=== PATIENT | female | born 1960 | race Caucasian/White ===

== ENCOUNTER 2023-05-07 14:46 | Outpatient (OUT) | payer MEDICARE, SELFPAY ==
[2023-05-07 16:11] LABS: Calcium 9.5 mg/dL (8.5-10.1)
== END 2023-05-07 14:47 | disposition home or self-care (01) ==
LOC: LAB 14:47
PROVIDERS: Orthopaedic Surgery; PCP Family Medicine
DX: M81.0 Age-related osteoporosis without current pathological fracture (principal); E55.9 Vitamin D deficiency, unspecified
CPT/HCPCS: 36415; 82306; 82310

== ENCOUNTER 2023-09-30 10:15 | Outpatient (OUT) | payer MEDICARE, OTHER, SELFPAY ==
[2023-09-30 10:37] LABS: Basophils Percent Auto 0.5 % (0.2-2.0); Eosinophils Absolute Auto 0.2 10^3/uL (0.0-0.7); Eosinophils Percent Auto 3.8 % (0.9-7.0); Hematocrit 40.8 % (36.0-48.0); Hemoglobin 13.4 g/dL (12.0-16.0); Immature Granulocytes Abs Auto 0.04 10^3/uL (0.00-0.03); Immature Granulocytes Pct Auto 0.6 % (0.0-0.5); Lymphocytes Absolute Auto 2.1 10^3/uL (1.2-3.8); Lymphocytes Percent Auto 34.2 % (20.5-60.0); Mean Corpuscular HGB Conc 32.8 g/dL (29.9-35.2); Mean Corpuscular Hemoglobin 31.6 pg (26.7-34.0); Mean Corpuscular Volume 96.2 fL (81.0-99.0); Mean Platelet Volume 9.8 fL (9.5-13.5); Monocytes Absolute Auto 0.5 10^3/uL (0.3-0.8); Neutrophils Absolute Auto 3.3 10^3/uL (1.4-6.5); Neutrophils Percent Auto 52.9 % (43.0-75.0); Platelet Count 173 10^3/uL (150-450); Red Blood Count 4.24 10^6/uL (4.20-5.40); Red Cell Distribution Width 12.9 % (11.0-15.0); White Blood Count 6.3 10^3/uL (4.0-11.0)
[2023-09-30 12:28] LABS: Estimated Average Glucose 128 mg/dL; Glycohemoglobin A1C 6.1 % (4.5-6.2)
[2023-09-30 13:01] LABS: Alanine Aminotransferase 30 U/L (14-59); Albumin Globulin Ratio 1.1; Albumin Level 3.8 g/dL (3.4-5.0); Alkaline Phosphatase 56 U/L (46-116); Anion Gap 14.2; Aspartate Amino Transferase 16 U/L (15-37); Bilirubin Total 0.3 mg/dL (0.2-1.0); Calcium 8.7 mg/dL (8.5-10.1); Chloride 100 mmol/L (98-107); Chol HDL Ratio 8.1; Cholesterol 298 mg/dL (<=200); Estimated GFR (African America >60 (>=60); Estimated GFR (Non-African Ame >60 (>=60); Free T3 2.73 pg/mL (2.18-3.98); Globulin 3.4 g/dL; Glucose 139 mg/dL (74-106); HDL Cholesterol 37 mg/dL (40-60); Potassium 4.2 mmol/L (3.5-5.1); Sodium 140 mmol/L (136-145); Thyroid Stimulating Hormone 3.277 uIU/mL (0.358-3.740); Total Protein 7.2 g/dL (6.4-8.2); Triglycerides 557 mg/dL (<=150); VLDL CHOLESTEROL 111.4 mg/dL
[2023-09-30 13:06] LABS: LDL Cholesterol Direct 127 mg/dL
== END 2023-09-30 10:16 | disposition home or self-care (01) ==
LOC: LAB 10:19
PROVIDERS: PCP Family Medicine; Visit Provider Family Medicine
DX: E78.5 Hyperlipidemia, unspecified (principal); E11.9 Type 2 diabetes mellitus without complications; I10 Essential (primary) hypertension; Z12.12 Encounter for screening for malignant neoplasm of rectum; D64.9 Anemia, unspecified; E55.9 Vitamin D deficiency, unspecified
CPT/HCPCS: 36415; 80053; 80061; 82306; 83036; 83540; 83721; 84436; 84443; 84481; 85025

== ENCOUNTER 2023-10-13 11:35 | Outpatient (OUT) | payer MEDICARE, OTHER, SELFPAY ==
[2023-10-13 12:28] LABS: Calcium 9.4 mg/dL (8.5-10.1)
== END 2023-10-13 11:36 | disposition home or self-care (01) ==
LOC: LAB 11:35
PROVIDERS: PCP Family Medicine; Visit Provider Orthopaedic Surgery
DX: M81.0 Age-related osteoporosis without current pathological fracture (principal); E55.9 Vitamin D deficiency, unspecified
CPT/HCPCS: 36415; 82306; 82310

== ENCOUNTER 2024-02-04 16:50 | Outpatient (OUT) | payer MEDICARE, OTHER, SELFPAY ==
--- NOTE | 2024-02-04 16:53 | XR_ITS ---
[address] [address] Patient Name: DACIA BENJAMIN MRN: [id number] date: 1960 Sex: F Assigned Patient Location: [facility] Current Patient Location: Accession/Order Number: [id number] Exam Date: 02/04/2024 17:05 Report Date: 02/05/2024 07:14 At the request of: ENDY BOLIVAR Procedure: XR knee LT 4V PROCEDURE: XR knee LT 4V COMPARISON: None. HISTORY: left knee pain FINDINGS: BONES:No acute fracture or dislocation. Moderate tricompartmental osteoarthropathy with marginal osteophyte formation. Moderate narrowing of the medial joint space. Chondrocalcinosis SOFT TISSUES:Negative. No visible soft tissue swelling. EFFUSION:None visible. OTHER: Negative. XR/XR knee LT 4V IMPRESSION: Moderate osteoarthritis and chondrocalcinosis Electronically authenticated by: ROCÍO HOOKS Date: 02/05/2024 07:14
== END 2024-02-04 16:51 | disposition home or self-care (01) ==
LOC: RAD 16:50
PROVIDERS: PCP Family Medicine; Visit Provider Orthopaedic Surgery
DX: M25.562 Pain in left knee (principal)
CPT/HCPCS: 73564

== ENCOUNTER 2024-03-31 13:09 | Outpatient (OUT) | payer MEDICARE, OTHER, SELFPAY ==
--- NOTE | 2024-03-31 13:12 | MM_ITS ---
Patient Name: DACIA BENJAMIN MR#: [id number] : 1960 Exam Date: 03/31/2024 Ordering Doctor: Non-Staff Physician RADIOLOGY REPORT PROCEDURE: MM TOMOSYNTHESIS SCREENING BI COMPARISON: MG MAMM SCREEN 3D PAU CAD, 03/11/2023. MG MAMM DX 3D RT CAD, 10/03/2021. INDICATIONS: Screening Calculator Name NCI Breast Cancer Risk Assessment Tool 5 Year Breast Cancer Risk 2.40% Lifetime Breast Cancer Risk 8.90% Personal Breast Cancer No Personal Ovarian Cancer No Treatments None Family Cancers Niece with breast cancer at age 50; Mother with ovarian cancer at age 93; Sister with uterine cancer at age 63. LOCATION: [facility] BREAST COMPOSITION: There are scattered areas of fibroglandular density. FINDINGS: DIAGNOSTIC CATEGORY 2--BENIGN FINDING. NO CHANGE FROM COMPARISON. Scattered benign-appearing calcifications are present. Scattered benign-appearing lymph nodes are present. RIGHT BREAST: No significant suspicious finding. Linear scar markers LEFT BREAST: No significant suspicious finding. RECOMMENDATIONS: ROUTINE MAMMOGRAM AND CLINICAL EVALUATION IN 12 MONTHS. PLEASE NOTE: A NORMAL MAMMOGRAM DOES NOT EXCLUDE THE POSSIBILITY OF BREAST CANCER. A CLINICALLY SUSPICIOUS PALPABLE LUMP SHOULD BE BIOPSIED. Dictated by: Dexter Reyes MD on 03/31/2024 at 15:38 Approved by: Dexter Reyes MD on 03/31/2024 at 15:40
== END 2024-03-31 13:10 | disposition home or self-care (01) ==
LOC: MAMMO 13:10
PROVIDERS: PCP Family Medicine
DX: Z12.31 Encounter for screening mammogram for malignant neoplasm of breast (principal); Z80.3 Family history of malignant neoplasm of breast; Z80.41 Family history of malignant neoplasm of ovary
CPT/HCPCS: 77063; 77067

== ENCOUNTER 2024-04-30 13:32 | Outpatient (OUT) | payer MEDICARE, OTHER, SELFPAY ==
[2024-04-30 14:51] LABS: Calcium 9.6 mg/dL (8.5-10.1)
== END 2024-04-30 13:33 | disposition home or self-care (01) ==
LOC: LAB 13:32
PROVIDERS: PCP Family Medicine
DX: M81.0 Age-related osteoporosis without current pathological fracture (principal); E55.9 Vitamin D deficiency, unspecified
CPT/HCPCS: 36415; 82306; 82310

== ENCOUNTER 2024-10-23 10:20 | Outpatient (OUT) | payer MEDICARE, OTHER, SELFPAY ==
--- OUTSIDE RECORDS SUMMARY | 2024-10-23 10:23 | XMS_ITS | CCD ---
Author Organization [facility] Care Team Providers Care Social Work Msw Name Role Phone Davie Hernandes Primary Care Provider Unavailabl e ENDY CRUZ Referring Unavailable DAVIE HERNANDES Primary Care Unavailable Davie Hernandes Primary Care Provider [phone] Niki Pearson Primary Care Physician MD Marito Villalobos Attending Provider [phone] MD Marito Villalobos Attending Provider Davie Hernandes Primary Care Provider Niki Pearson MD Primary Care Provider [phone] Niki Pearson MD Primary Care Provider [phone] ROCÍO REYES V Consulting Unavailable MISC, DR CARTER Attending Unavailable MISC, DR CARTER Admitting Unavailable HOY ., DR PRINCE Primary Care Unavailable MISC, DR CARTER Consulting Unavailable HOY ., DR PRINCE Primary Care Unavailable HOY ., DR PRINCE Consulting Unavailable HOY ., DR PRINCE Attending Unavailable HOY ., DR PRINCE Admitting Unavailable HOY ., DR PRINCE Primary Care Unavailable HOY ., DR PRINCE Consulting Unavailable HOY ., DR PRINCE Attending Unavailable HOY ., DR PRINCE Admitting Unavailable MISC, DR CARTER Attending Unavailable MISC, DR CARTER Admitting Unavailable MISC, DR CARTER Consulting Unavailable LILI ., DR PRINCE Primary Care Unavailable DR ROCÍO REYES V Consulting Unavailable ENDY CRUZ Attending Unavailable ENDY CRUZ Admitting Unavailable AUDREY, PITA Consulting Unavailable ENDY CRUZ Consulting Unavailable LILI Preciado, DR PRINCE Primary Care Unavailable JESSEE, DR ROCÍO Martins Consulting Unavailable PTIA VENTURA Attending Unavailable VENTURA, PITA Admitting Unavailable VENTURA, PITA Consulting Unavailable LILI ., DR PRINCE Primary Care Unavailable HOY ., DR PRINCE Consulting Unavailable HOY ., DR PRINCE Attending Unavailable HOY ., DR PRINCE Admitting Unavailable WEST, DR ROCÍO Martins Consulting Unavailable HOY ., DR PRINCE Admitting Unavailable HOY ., DR PRINCE Consulting Unavailable HOY ., DR PRINCE Primary Care Unavailable HOY ., DR PRINCE Attending Unavailable ZIEBER, DR LA Juarez Consulting Unavailable HOY ., DR PRINCE Consulting Unavailable HOY ., DR PRINCE Attending Unavailable HOY ., DR PRINCE Admitting Unavailable HOY ., DR PRINCE Primary Care Unavailable WEST, DR ROCÍO Martins Consulting Unavailable HOY ., DR PRINCE Primary Care Unavailable HOY ., DR PRINCE Admitting Unavailable HOY ., DR PRINCE Attending Unavailable CARINAECK, DR CHAVEZ Ellsworth Attending Unavailabl e REINECK, DR CHAVEZ [place] Admitting Unavailabl e HOY ., DR PRINCE Primary Care Unavailable ALICIA, DR CHAVEZ [place] Consulting UnavailROCÍO Sterling Unavailable LILI ., DR PRINCE Primary Care Unavailable MARITO VILLALOBOS Attending Unavailable MARITO VILLALOBOS Admitting Unavailable MARITO VILLALOBOS Consulting Unavailable REZA HAYWARD Consulting Unavailable LUZ HEREDIA Unavailable Niki Pearson MD Primary Care Provider Unavailable Primary Care Provider UnavailENDY Bowie Attending Unavailable NIKI PEARSON Primary Care Unavailable ENDY CRUZ Admitting Unavailable LUZ GARG Attending Unavailable NIKI PEARSON Primary Care Unavailable ENDY CRUZ Referring Unavailable NIKI PEARSON Primary Care Unavailable ENDY CRUZ Attending Unavailable NIKI PEARSON Primary Care Unavailable ENDY CRUZ Admitting Unavailable ROSALBA GREGORIO. Attending Unavailable ROSALBA GREGORIO. Attending Unavailable ROSALBA GREGORIO. Attending Unavailable ROSALBA GREGORIO. Attending Unavailable ROSALBA GREGORIO. Attending Unavailable ROSALBA GREGORIO. Attending Unavailable ROSALBA GREGORIO. Attending Unavailable ROSALBA GREGORIO. Attending Unavailable ROSALBA GREGORIO. Attending Unavailable ROSALBA GREGORIO. Attending Unavailable ROSALBA GREGORIO. Attending Unavailable ROSALBA GREGORIO. Attending Unavailable ROSALBA GREGORIO Attending Unavailable FLORIN BURGOS Attending Unavailable FLORIN BURGOS Attending Unavailable FLORIN BURGOS Attending Unavailable LA HOYOS Attending Unavailable FLORIN BURGOS Attending Unavailable FLORIN BURGOS Attending Unavailable Allergies Allergy Classification Reported Allergen(s) Allergy Type Date of Onset Reaction(s) Facility (7 sources) Adhesive Tape Propensity to adverse reactions to drug 03-27-20 17 Other (See Comments) [facility] Phone: (7 sources) celecoxib Drug Allergy 01-03-20 21 Other (See Comments) [facility]: (14 sources) Codeine; Translations: [codeine] Drug Allergy 10-09-20 14 Nausea And Vomiting, Nausea and vomiting (disorder) [facility] Phone: (7 sources) egg white (chicken) allergenic extract Drug Allergy 01-12-20 21 Swelling [facility] Phone: (7 sources) Glutaral Drug Allergy 01-03-20 21 Other (See Comments) [facility] Phone: (6 sources) NSAIDs; Translations: [NSAIDs] Propensity to adverse reactions to drug 08-04-20 20 Other (See Comments), Gastric ulcer (disorder) [facility] Phone: (13 sources) oxaprozin Drug Allergy 01-03-20 21 Other (See Comments), Hives [facility]: (1 source) Adhesive bandage Drug allergy Eruption of skin (disorder) [facility] (11 sources) Sulfonamides (Antibiotic) Propensity to adverse reactions to drug 06-17-20 22 Other (See Comments), Hives, Rash [facility] (2 sources) Non-steroidal anti-inflammatory agent Propensity to adverse reactions to drug 08-04-20 20 Other (See Comments) [employer] Phone: (1 source) Adhesive agent Drug allergy (disorder) 01-06-[address] [facility] (1 source) celecoxib Drug Allergy 01-03-[address] [facility] (1 source) Codeine Drug Allergy 10-09-[address] [facility] (1 source) egg extract Drug Allergy [facility] (1 source) Glutaral Drug Allergy 01-03-[address] [facility] (1 source) NSAIDs Drug allergy (disorder) 10-09-[address] [facility] (1 source) oxaprozin Drug Allergy 01-03-[address] [facility] (1 source) Acetaminophen Drug Allergy 08-05-20 23 Other (See Comments) [facility] (7 sources) Diclofenac / miSOPROStol Drug Allergy 08-05-20 23 Other (See Comments) [facility] (6 sources) Acetaminophen Drug Allergy 08-05-20 23 [facility] (6 sources) celecoxib Drug Allergy 01-03-20 21 [facility] (6 sources) Glutaral Drug Allergy 01-03-20 21 [facility] (6 sources) Non-steroidal anti-inflammatory agent Drug Intolerance 08-04-20 20 [facility] (3 sources) Eggs Or Egg-Derived Products Drug Allergy 01-12-20 21 Swelling [facility] (6 sources) Other Propensity to adverse reactions 08-04-20 [facility] (6 sources) Wound Dressing Adhesive Drug Intolerance 03-27-20 17 [facility] (3 sources) Egg-Derived Products Drug Allergy 01-12-20 21 Swelling [facility] (1 source) ALLERGIES NOT ON FILE; Translations: [ALLERGIES NOT ON FILE] Propensity to adverse reactions (disorder) [facility] Repository Medications Current Medications Medication Drug Class(es) Dates Sig (Normalized) Sig (Original) acetaminophen 325 mg / HYDROcodone bitartrate 5 mg oral tablet (6 sources) Opioid Agonist Start: 11-06-2023 End: 11-09-2023 HYDROcodone-acetamin ophen (NORCO) 5-325 MG per tablet Indications: Acute postoperative pain Take 1 tablet by mouth every 6 hours as needed for Pain for up to 3 days. Intended supply: 3 days. Take lowest dose possible to manage pain Max Daily Amount: 4 tablets 10 tablet 0 11/06/2023 11/09/2023 Active Start: 11-06-2023 End: 11-06-2023 HYDROcodone-acetaminophen (N ORCO) 5-325 MG per tablet 1 tablet Start: 11-06-2023 End: 11-06-2023 HYDROcodone-acetaminophen (N ORCO) 5-325 MG per tablet Start: 06-17-2022 End: 06-20-2022 take 1 tablet by mouth every six hours as needed for pain HYDROcodone-acetaminophen (NORCO) 5-325 MG per tablet Indications: Yeast infection involving the vagina and surrounding area Take 1 tablet by mouth every 6 hours as needed for Pain for up to 3 days. 10 tablet 0 06/17/2022 06/20/2022 Active Start: 02-12-2021 End: 02-19-2021 take 1 tablet by mouth every four hours as needed for pain, then take 1 tablet by mouth as needed for pain HYDROcodone-acetaminophen (NORCO) 5-325 MG per tablet Indications: Post-op pain Take 1 tablet by mouth every 4 hours as needed for Pain for up to 7 days. Intended supply: 7 days. Take lowest dose possible to manage pain 42 tablet 0 02/12/2021 02/19/2021 Active Start: 02-12-2021 End: 02-12-2021 HYDROcodone-acetaminophen (N ORCO) 5-325 MG per tablet 1 tablet acetaminophen 325 mg / oxyCODONE hydrochloride 5 mg oral tablet (5 sources) Opioid Agonist Start: 10-28-2022 End: 11-04-2022 take 1 tablet by mouth every four hours as needed for pain oxyCODONE-acetaminophen (PERCOCET) 5-325 MG per tablet Indications: Cervical stenosis of spinal canal , S/P cervical spinal fusion Take 1 tablet by mouth every 4 hours as needed for Pain for up to 7 days. 30 tablet 0 10/28/2022 11/04/2022 Active Start: 10-28-2022 oxyCODONE-acet aminophen (PERCOCET) 5-325 MG per tablet 1 tablet Start: 09-02-2022 End: 09-09-2022 oxyCODONE-acetaminophen (PER COCET) 5-325 MG per tablet Indications: Post-op pain Take 1 tablet by mouth every 6 hours as needed for Pain for up to 7 days. Intended supply: 7 days. Take lowest dose possible to manage pain 28 tablet 0 09/02/2022 09/09/2022 Active Start: 09-02-2022 take 1 tablet by dhaval every four hours as needed Mg/kg dosing is based on the oxycodone component. 1 tablet, Oral, EVERY 4 HOURS PRN, Starting on 09/02/22 at 1306, Until Discontinued, Pain Moderate (4-6), Pain Severe (7-10) Maximum dose of acetaminophen is 4000 mg from all sources in 24 hours. albuterol 0.833 mg/ml / ipratropium bromide 0.167 mg/ml inhalation solution (1 source) Anticholinergic, beta2-Adrenergic Agonist Start: 09-04-2022 ipratropium-albuterol (DUONEB) nebulizer solution 1 ampule ALFALFA PO (6 sources) ALFALFA PO Take by mouth Active ALFALFA PO Take by mouth 0 Active aspirin 81 mg delayed release oral tablet (11 sources) Platelet Aggregation Inhibitor, Nonsteroidal Anti-inflammatory Drug aspirin 81 MG EC tablet 1 (one) time each day at the same time. Active b complex vitamins capsule (6 sources) take 1 capsule by mouth in the morning b complex vitamins capsule Take 1 capsule by mouth in the morning. Active take 1 capsule by mouth in the m orning b complex vitamins capsule Take 1 capsule by mouth in the morning. 0 Active beta carotene 68697 unt oral capsule (12 sources) beta carotene (V itamin A) 66340 units capsule Take 25,000 Units by mouth. Active take 1 capsule by mouth once [place] beta carotene 82057 units capsule Take 25,000 Units by mouth daily 0 Suspended biotin 1 mg chewable tablet (12 sources) Biotin 1000 MCG chewable tablet every 12 (twelve) hours. Active take 2 tablets by mo [facility] once daily Biotin 45586 MCG TABS Take 20,000 mcg by mouth daily 0 Suspended End: 08-28-2022 take 2 tablets by mouth once daily Biotin 1000 MCG CHEW biotin 1,000 mcg chewable tablet Take 2 tablets every day by oral route. 0 08/28/2022 Discontinued (Therapy completed) busPIRone hydrochloride 10 mg oral tablet (10 sources) Start: 03-25-2024 End: 03-20-2025 take 1 tablet by mouth once daily busPIRone (Buspar) 10 MG tablet Indications: Anxiety Take 1 tablet (10 mg) by mouth Daily 90 tablet 3 03/25/2024 03/20/2025 Active Start: 10-28-2022 End: 01-25-2024 take 1 tablet by mouth in the morning busPIRone (Buspar) 10 MG tablet Indications: Anxiety Take 1 tablet (10 mg) by mouth in the morning and 1 tablet (10 mg) before bedtime. 180 tablet 3 10/27/2023 01/25/2024 Active calcium chloride 0.0014 meq/ ml / potassium chloride 0.004 meq/ml / sodium chloride 0.103 meq/ml / sodium lactate 0.028 meq/ml injectable solution (4 sources) Start: 11-06-2023 lactated ringe rs IV soln infusion Start: 10-28-2022 lactated ringe rs infusion Start: 09-02-2022 End: 09-02-2022 lactated ringers infusion 1, 000 mL Start: 02-12-2021 lactated ringe rs infusion 1,000 mL calcium-vitamin D-vitamin K (Calcium + D + K) 750-500-40 MG-UNT-MCG tablet (6 sources) calcium-vitamin D-vitamin K (Calcium + D + K) 750-500-40 MG-UNT-MCG tablet every 12 (twelve) hours. Active calcium-vitamin D-vitamin K (Calcium + D + K) 750-500-40 MG-UNT-MCG tablet every 12 (twelve) hours. 0 Active cephalexin 500 mg oral capsule (1 source) Cephalosporin Antibacterial Start: 10-29-2022 End: 11-05-2022 take 1 capsule by mouth three times daily cephALEXin (KEFLEX) 500 MG capsule Take 1 capsule by mouth 3 times daily for 7 days 21 capsule 0 10/29/2022 11/05/2022 Active cetirizine hydrochloride 10 mg oral tablet (7 sources) Histamine-1 Receptor Antagonist Start: 10-28-2022 End: 10-31-2022 10 mg, Oral, DAILY, 3 doses, First dose on Fri10/28/22 at 1200, Last dose on Fri10/30/22 at 0900 take 2 tablets by mo [facility] once daily as needed cetirizine (ZYRTEC) 5 MG tablet Take 10 mg by mouth daily as needed 0 Suspended cetirizine (ZYRT EC) 5 MG tablet Take 5 mg by mouth 0 Active clonazePAM 0.5 mg oral tablet (18 sources) Benzodiazepine Start: 06-22-2024 End: 12-16-2024 take 1 tablet by mouth in the morning, then take 1 tablet by mouth in the evening, then take 1 tablet by mouth at bedtime clonazePAM (KlonoPIN) 0.5 MG tablet Indications: Seizure (CMS/HCC) Take 1 tablet (0.5 mg) by mouth in the morning and 1 tablet (0.5 mg) in the evening and 1 tablet (0.5 mg) before bedtime. 270 tablet 09/17/2024 12/16/2024 Active Start: 09-25-2023 End: 03-24-2024 take 1 tablet by mouth in the morning, then take 1 tablet by mouth in the evening, then take 1 tablet by mouth at bedtime clonazePAM (KlonoPIN) 0.5 MG tablet Indications: Seizure (CMS/HCC) Take 1 tablet (0.5 mg) by mouth in the morning and 1 tablet (0.5 mg) in the evening and 1 tablet (0.5 mg) before bedtime. 90 tablet 2 12/25/2023 03/24/2024 Active Start: 10-28-2022 take 1.5 mg by mouth once elbert y 1.5 mg, Oral, NIGHTLY, First dose on Fri10/28/22 at 2100, Until Discontinued Start: 09-03-2022 take 1.5 mg by mouth once elbert y 1.5 mg, Oral, NIGHTLY, First dose on Fri09/03/22 at 0030, Until Discontinued Start: 03-25-2022 take 0.25 mg by mout h once daily at bedtime ClonazePAM 0.5 mg Tab 0.25 mg = 0.5 tab(s), Oral, Once a day (at bedtime), Refills(s) 0 Start Date: 03/25/22 Status: Ordered clonazePAM (KLON OPIN) 0.5 MG tablet 3 tablets nightly. 0 Suspended clonazePAM (KLON OPIN) 0.5 MG tablet clonazepam 0.5 mg tablet 0 Suspended 1 ml denosumab 60 mg/ml prefilled syringe (3 sources) RANK Ligand Inhibitor inject 60 mg by subcutaneous injection once denosumab (Prolia) 60 MG/ML solution prefilled syringe Inject 60 mg under the skin 1 (one) time Active 1 ml diphenhydrAMINE hydrochloride 50 mg/ml cartridge (1 source) Histamine-1 Receptor Antagonist Start: 2020 End: 2020 diphenhydrAMINE (BENADRYL) injection 12.5 mg docosahexaenoic acid 120 mg / eicosapentaenoic acid 180 mg oral capsule (11 sources) omega-3 (Fish Oi l) 1000 MG capsule 1 capsule 1 (one) time each day at the same time. Active take 1 capsule by mouth twice da ofelia [place]-3 Fatty Acids (FISH OIL) 1000 MG CAPS Take 3,000 mg by mouth 2 times daily 0 Active docusate sodium 100 mg oral capsule (2 sources) Start: 09-03-2022 End: 10-03-2022 take 1 capsule by mouth twice daily docusate sodium (COLACE) 100 MG capsule Take 1 capsule by mouth 2 times daily 60 capsule 0 09/03/2022 10/03/2022 Active doxycycline hyclate 100 mg oral tablet (1 source) Tetracycline-cla ss Drug Start: 06-17-2022 End: 06-24-2022 take 1 tablet by mouth in the morning doxycycline hyclate (VIBRA-TABS) 100 MG tablet Take 1 tablet by mouth in the morning and 1 tablet before bedtime. Do all this for 7 days. 14 tablet 0 06/17/2022 06/24/2022 Active escitalopram 10 mg oral tablet (16 sources) Serotonin Reuptake Inhibitor Start: 05-29-2024 take 1 tablet by mouth once daily in the morning escitalopram (Lexapro) 10 MG tablet Indications: Depression, unspecified depression type (CMS/HCC) TAKE 1 TABLET BY MOUTH EVERY DAY IN THE MORNING 90 tablet 3 05/29/2024 Active Start: 03-25-2022 take 1 tablet by dhaval th in the morning escitalopram (Lexapro) 10 MG tablet Indications: Depression, unspecified depression type (CMS/HCC) Take 1 tablet (10 mg) by mouth in the morning. 90 tablet 3 04/10/2023 Active take 10 mg by mouth once daily e scitalopram (LEXAPRO) 20 MG tablet Take 10 mg by mouth daily 0 Active escitalopram (LE XAPRO) 20 MG tablet escitalopram 20 mg tablet 0 Suspended fluconazole 150 mg oral tablet (1 source) Azole Antifungal Start: 06-17-2022 End: 06-17-2022 take 1 tablet by mouth once fluconazole (DIFLUCAN) 150 MG tablet Take 1 tablet by mouth once for 1 dose Take after completion of doxycycline and macrobid 1 tablet 1 06/17/2022 06/17/2022 Active garlic preparation 2 mg oral capsule (9 sources) Non-Standardized Food Allergenic Extract Garlic 2 MG capsule Take by mouth Active Garlic 100 MG TA BS Take by mouth daily 0 Suspended Garlic 100 MG TA BS Take by mouth daily 0 Active Garlic 100 MG TA BS Take by mouth 0 Active Garlic 100 MG TA BS Take by mouth 0 Suspended glucagon (rdna) 1 mg injection (3 sources) Antihypoglycemic Agent Start: 10-28-2022 glucago n (rDNA) injection 1 mg Start: 09-02-2022 inject 1 mg by subcu taneous injection every hour as needed 1 mg, SubCUTAneous, PRN, Starting on Fri09/02/22 at 2009, Until Discontinued, Low blood sugar, Blood glucose LESS THAN 70 mg/dL and patient NOT ALERT or NPO and does not have IV access. After administration, attempt intravenous access and start dextrose 10% at 100 mL/hr. Repeat blood glucose in 15 minutes x 2 and notify provider. Start: 09-02-2022 glucagon (rDNA ) injection 1 mg 1000 ml glucose 100 mg/ml in jection (9 sources) Start: 10-28-2022 dextrose 10 % infusion Start: 10-28-2022 dextrose bolus 10% 125 mL Start: 10-28-2022 glucose chewab le tablet 16 g Start: 09-02-2022 dextrose bolus 10% 125 mL Start: 09-02-2022 16 g (4 tablet ), Oral, PRN, Starting on Fri09/02/22 at 2009, Until Discontinued, Low blood sugar If blood glucose is LESS THAN 70 mg/dL and patient is alert and tolerating oral. Give 4 tablets (16g) Repeat blood glucose in 15 minutes. If blood glucose is LESS THAN 70 mg/dL, repeat treatment and recheck blood glucose in 15 minutes x 2. If blood glucose remains LESS THAN 70 mg/dL, notify provider. Start: 09-02-2022 take 1 mL intravenou sly every hour IntraVENous, at 100 mL/hr, CONTINUOUS PRN, if blood glucose remains LESS THAN 70 mg/dL after 2 dextrose 10% intravenous boluses or administration of glucagon, Starting on Fri09/02/22 at 2009 If blood glucose fails to stabilize after 2 dextrose 10% intravenous boluses or glucagon administration, start dextrose 10% infusion at 100 mL/hour and repeat blood glucose at 30 and 60 minutes. If blood glucose is GREATER THAN 70 mg/dL after 60 minutes, discontinue dextrose 10% infusion. Start: 09-02-2022 dextrose bolus 10% 125 mL Start: 09-02-2022 glucose chewab le tablet 16 g 1 ml hydrALAZINE hydrochloride 20 mg/ml injection (2 sources) Arteriolar Vasodilator Start: 09-02-2022 hydrALAZINE (APRESOLINE) injection 10 mg Start: 02-12-2021 hydrALAZINE (A PRESOLINE) injection 5 mg 1 ml HYDROmorphone hydrochloride 1 mg/ml cartridge (10 sources) Opioid Agonist Start: 11-06-2023 HYDROmorphone (DILAUDID) injection 0.5 mg Start: 11-06-2023 HYDROmorphone (DILAUDID) injection 0.3 mg Start: 10-28-2022 End: 10-28-2022 HYDROmorphone (DILAUDID) 1 M G/ML injection Start: 10-28-2022 End: 10-28-2022 HYDROmorphone (DILAUDID) inj ection 0.5 mg Start: 10-28-2022 End: 10-28-2022 HYDROmorphone (DILAUDID) inj ection 0.25 mg Start: 02-12-2021 End: 02-12-2021 HYDROmorphone (DILAUDID) 1 M G/ML injection Start: 02-12-2021 HYDROmorphone (DILAUDID) injection 0.5 mg Start: 02-12-2021 End: 02-12-2021 HYDROmorphone (DILAUDID) inj ection 0.25 mg insulin lispro 100 unt/ml injectable solution (4 sources) Insulin Analog Start: 10-28-2022 insulin lispro (HUMALOG) injection vial 0-4 Units Start: 09-02-2022 insulin lispro (HUMALOG) injection vial 0-8 Units labetalol (NORMODYNE;TRANDATE) injection 10 mg (1 source) Start: 11-06-2023 labetalol (NORMODYNE;TRANDATE) injection 10 mg Lecithin (3 sources) LECITHIN PO Take by mouth Active 1 ml meperidine hydrochloride 50 mg/ml injection (1 source) Opioid Agonist Start: 02-12-2021 meperidine (DEMEROL) injection 12.5 mg 2 ml metoclopramide 5 mg/ml prefilled syringe (1 source) Dopamine-2 Receptor Antagonist Start: 02-12-2021 End: 02-12-2021 metoclopramide (REGLAN) injection 10 mg milk thistle extract 150 mg oral capsule (12 sources) Milk Thistle 150 MG capsule as directed Orally Active Milk Thistle 150 MG capsule as directed Orally 0 Active Milk Thistle 500 MG CAPS Take by mouth daily 0 Suspended Milk Thistle 500 MG CAPS Take by mouth daily 0 Active Milk Thistle 500 MG CAPS Take by mouth 0 Active Milk Thistle 500 MG CAPS Take by mouth 0 Suspended mometasone furoate 0.05 mg/actuat metered dose nasal spray (14 sources) Corticosteroid Start: 09-23-2024 End: 10-23-2024 take 2 spray(s) nasal route once daily mometasone (Nasonex) 50 MCG/ACT nasal spray Indications: 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 Administer 2 sprays into each nostril Daily 18 g 09/23/2024 10/23/2024 Active Start: 09-08-2023 End: 09-23-2024 take 2 spray(s) nasal route once daily in the morning mometasone (Nasonex) 50 MCG/ACT nasal spray Indications: 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 INSTILL 2 SPRAYS INTO EACH NOSTRIL EVERY MORNING 18 g 09/08/2023 09/23/2024 Discontinued (Reorder) Mometasone Furoa te (NASONEX NA) by Nasal route daily 0 Suspended take 2 spray(s) nasa l route once daily mometasone (NASONEX) 50 MCG/ACT nasal spray mometasone 50 mcg/actuation nasal spray 2 sprays each nostril daily 0 Suspended morphine (PF) injection 2 mg (1 source) Start: 10-28-2022 morphine (PF) injection 2 mg Multiple Vitamin (Multi Vilma min) tablet (6 sources) Multiple Vitamin (Multi Vitamin) tablet every 12 (twelve) hours. Active Multiple Vitamin (Multi Vitamin) tablet every 12 (twelve) hours. 0 Active Nasonex 50 mcg/inh [place] (1 source) Start: 03-25-2022 take 1 spray(s) nasal route twice daily as needed Nasonex 50 mcg/inh [place] = 1 spray(s), Nasal, BID, PRN for allergy symptoms, in each nostril, # 17 gram, Refills(s) 0 Start Date: 03/25/22 Status: Ordered nitrofurantoin, macrocrystals 25 mg / nitrofurantoin, monohydrate 75 mg oral capsule (1 source) Nitrofuran Antibacterial Start: 06-17-2022 End: 06-22-2022 take 1 capsule by mouth in the morning nitrofurantoin, macrocrystal-monohy drate, (MACROBID) 100 MG capsule Take 1 capsule by mouth in the morning and 1 capsule before bedtime. Do all this for 5 days. 10 capsule 0 06/17/2022 06/22/2022 Active ondansetron (ZOFRAN-ODT) disintegrating tablet 4 mg (1 source) Start: 10-28-2022 ondansetron (ZOFRAN-ODT) disintegrating tablet 4 mg phenazopyridine hydrochloride 100 mg oral tablet (1 source) Start: 06-17-2022 End: 06-20-2022 take 1 tablet by mouth three times daily as needed for pain phenazopyridine (PYRIDIUM) 100 MG tablet Take 1 tablet by mouth 3 times daily as needed for Pain 10 tablet 0 06/17/2022 06/20/2022 Active phenytoin sodium 30 mg extended release oral capsule (20 sources) Anti-epileptic Agent Start: 07-05-2024 take 3 capsules by mouth at bedtime Dilantin 100 MG capsule Indications: Focal epilepsy (CMS/HCC) TAKE 3 CAPSULES BY MOUTH AT BEDTIME 270 capsule 3 07/05/2024 Active Start: 07-05-2024 End: 10-03-2024 Dilantin 30 MG capsule Indic ations: Seizure disorder (CMS/HCC) Take 1 capsule (30 mg) by mouth Daily Total of 10 capsules per week. 90 capsule 3 07/05/2024 10/03/2024 Active Start: 12-22-2023 take 3 capsules by m outh at bedtime Dilantin 100 MG capsule Indications: Focal epilepsy (CMS/HCC) TAKE 3 CAPSULES BY MOUTH AT BEDTIME 270 capsule 1 12/22/2023 Active Start: 12-22-2023 Dilantin 30 MG capsule Indications: Seizure disorder (CMS/HCC) TAKE 1 CAPSULE BY MOUTH ON FRIDAY, FRIDAY, FRIDAY AND FRIDAY 90 capsule 1 12/22/2023 Active Start: 10-29-2022 take 60 mg by mouth once daily 60 mg, Oral, USER SPECIFIED (Once per day on Fri), First dose on Fri10/29/22 at 2100, Until Discontinued Tube feeding interaction, obtain physician order to manage. Recommend holding TF for 1 hour before and 1 hour after dose. Start: 10-28-2022 take 30 mg by mouth once daily 30 mg, Oral, USER SPECIFIED (Once per day on Fri), First dose on Fri10/28/22 at 2100, Until Discontinued Tube feeding interaction, obtain physician order to manage. Recommend holding TF for 1 hour before and 1 hour after dose. Start: 10-28-2022 take 300 mg by mouth once elbert y 300 mg, Oral, NIGHTLY, First dose on Fri10/28/22 at 2100, Until Discontinued Tube feeding interaction, obtain physician order to manage. Recommend holding TF for 1 hour before and 1 hour after dose. Start: 09-04-2022 phenytoin (DIL ANTIN) ER capsule 30 mg Start: 09-03-2022 take 60 mg by mouth once daily 60 mg, Oral, USER SPECIFIED (Once per day on Fri), First dose on Fri09/03/22 at 2100, Until Discontinued Tube feeding interaction, obtain physician order to manage. Recommend holding TF for 1 hour before and 1 hour after dose. Start: 09-02-2022 take 300 mg by mouth once elbert y 300 mg, Oral, NIGHTLY, First dose on Fri09/02/22 at 2100, Until Discontinued Tube feeding interaction, obtain physician order to manage. Recommend holding TF for 1 hour before and 1 hour after dose. Start: 03-25-2022 take 3 capsules by m outh once daily at bedtime Dilantin 100 mg Cap-ER 300 mg = 3 cap(s), Oral, Once a day (at bedtime), Refills(s) 0 Start Date: 03/25/22 Status: Ordered Start: 03-25-2022 Dilantin 30 mg oral capsule, extended release as directed, Refills(s) 0 Start Date: 03/25/22 Status: Ordered phenytoin (NIGHAT TIN) 100 MG ER capsule 3 capsules nightly 0 Suspended phenytoin (NIGHAT TIN) 30 MG ER capsule 2 capsules three times a week , , FRI AT NIGHT 0 Suspended take 1 capsule by mo ut four times weekly phenytoin (DILANTIN) 30 MG ER capsule Take 30 mg by mouth four times a week SUN, MON, WED, FRI AT NIGHT 0 Suspended phenytoin (NIGHAT TIN) 100 MG ER capsule Dilantin Extended 100 mg capsule 0 Suspended polyethylene glycol 3350 [id number] mg powder for oral solution (1 source) Osmotic Laxative Start: 10-28-2022 polyethylene glycol (GLYCOLAX) packet 17 g prochlorperazine 5 mg/ml injectable solution (1 source) Phenothiazine Start: 11-06-2023 End: 11-07-2023 prochlorperazine (COMPAZINE) injection 5 mg 1 ml promethazine hydrochloride 25 mg/ml injection (1 source) Phenothiazine Start: 02-12-2021 End: 02-12-2021 promethazine (PHENERGAN) injection 6.25 mg Red Yeast Rice Extract (RED YEAST RICE PO) (3 sources) Red Yeast Rice E xtract (RED YEAST RICE PO) Take by mouth Active Respiratory Therapy Supplies [facility] Start: 05-27-2023 Respiratory Th erapy Supp[place] (CareTouch CP[place] & [place] [facility] [place] Obstructive sleep apnea syndrome BIPAP mask, heating tubing and supplies for 1 year. 1 each 05/27/2023 Active Start: 05-27-2023 Respiratory Th erapy Supplies (CareTouch CPAP & B[place] H[place] [facility] [place]: Obstructive sleep apnea syndrome BIPAP mask, heating tubing and supplies for 1 year. 1 each 0 05/27/2023 Active 72 hr scopolamine 0.0139 mg/hr transdermal system (3 sources) Anticholinergic Start: 10-28-2022 scopolamine (TRANSDERM-SCOP) transdermal patch 1 patch Start: 09-02-2022 scopolamine (T RANSDERM-SCOP) transdermal patch 1 patch Start: 02-12-2021 scopolamine (T RANSDERM-SCOP) transdermal patch 1 patch 5 ml sodium chloride 9 mg/ml injection (13 sources) Start: 11-06-2023 sodium chlorid e flush 0.9 % injection 5-40 mL Start: 11-06-2023 0.9 % sodium c hloride infusion Start: 11-06-2023 sodium chlorid e flush 0.9 % injection 5-40 mL Start: 10-28-2022 0.9 % sodium c hloride infusion Start: 10-28-2022 sodium chlorid e flush 0.9 % injection 10 mL Start: 09-02-2022 take 1 dose intraven ously twice daily 5-40 mL, IntraVENous, EVERY 12 HOURS SCHEDULED (2 times per day), First dose on Fri09/02/22 at 2100, Until Discontinued For Line Patency: Peripheral IV = 5 mL; Midline or Central Line = 10 mL/lumen. If following IV push medication, administer flush at same rate as the IV push. Flush volume is determined by type of infusion therapy being given. For non-viscous solutions use: Peripheral IV = 5 mL Midline or Central Line = 10 mL/lumen For viscous solutions (i.e. blood components, parenteral nutrition, contrast media, or after obtaining blood sample) use: Peripheral IV = 10 mL Midline or Central Line = 20 mL/lumen Start: 09-02-2022 End: 09-04-2022 take 1 mL by mouth every hour IntraVENous, at 100 mL/h r, CONTINUOUS, Starting on Fri09/02/22 at 1330 May decrease/DC as patient tolerates PO intake and voids well (> or = 0.5 cc/kg/h). Start: 09-02-2022 IntraVENous, a t 5-250 mL/hr, PRN, if patient receiving piggyback infusions and maintenance fluids are not ordered OR KVO fluids to protect IV site / prevent frequent line interruptions/ long duration, Starting on Fri09/02/22 at 1306 For piggyback infusion, administer at same rate as piggyback for a total of 25 mL. Enter 25 mL into dose field and piggyback rate into rate field of order. If piggyback is infusing at a rate less than 100 mL/hr, enter 25 mL into dose field and 100 mL/hr into rate field of order. For KVO fluids, enter rate of 20 mL/hr or less into rate field of order. Start: 09-02-2022 take 5-40 mL intrave nously once as needed 5-40 mL, IntraVENous, PRN, Starting on Fri09/02/22 at 1306, Until Discontinued, Line Care, After every IV line use For Line Patency: Peripheral IV = 5 mL; Midline or Central Line = 10 mL/lumen. If following IV push medication, administer flush at same rate as the IV push. Flush volume is determined by type of infusion therapy being given. For non-viscous solutions use: Peripheral IV = 5 mL Midline or Central Line = 10 mL/lumen For viscous solutions (i.e. blood components, parenteral nutrition, contrast media, or after obtaining blood sample) use: Peripheral IV = 10 mL Midline or Central Line = 20 mL/lumen tiZANidine 2 mg oral tablet (15 sources) Central alpha-2 Adrenergic Agonist Start: 06-17-2024 take 1 tablet by mouth every eight hours as needed tiZANidine (Zanaflex) 2 MG tablet Take 2 mg by mouth every 8 (eight) hours if needed 06/17/2024 Active Start: 10-29-2022 tiZANidine (ZA NAFLEX) tablet 4 mg Start: 09-02-2022 End: 09-16-2022 take 1 tablet by mouth every six hours as needed for pain tiZANidine (ZANAFLEX) 2 MG tablet Take 1 tablet by mouth every 6 hours as needed (for pain) 28 tablet 0 09/02/2022 09/16/2022 Active Start: 09-02-2022 take 4 mg by mouth e very six hours as needed 4 mg, Oral, EVERY 6 HOURS PRN, Starting on Fri09/02/22 at 1306, Until Discontinued, Muscle spasms Start: 08-30-2022 take 1 tablet by dhaval th once daily tiZANidine (Zanaflex) 4 MG tablet Take 4 mg by mouth 1 (one) time each day. 08/30/2022 Active take 1 tablet by dhaval th every eight hours as needed tiZANidine (ZANAFLEX) 4 MG tablet Take 1 tablet by mouth every 8 hours as needed 0 Suspended End: 08-28-2022 take 1 tablet by mouth in the morning tiZANidine (ZANAFLEX) 4 MG tablet Take 4 mg by mouth in the morning and 4 mg before bedtime. 0 08/28/2022 Discontinued (Therapy completed) traZODone hydrochloride 100 mg oral tablet (16 sources) Serotonin Reuptake Inhibitor Start: 09-23-2024 End: 09-23-2024 take 1 tablet by mouth at bedtime, then take 3 tablets by mouth at bedtime traZODone (Desyrel) 100 MG tablet Indications: Chronic insomnia Take 1 tablet (100 mg) by mouth at bedtime Take 3 Tablets (150mg( by mouth at bedtime 30 tablet 11 09/23/2024 09/23/2024 Discontinued Start: 09-23-2024 End: 10-23-2024 take 2 tablets by mouth at bedtime traZODone (Desyrel) 100 MG tablet Indications: Chronic insomnia Take 2 tablets (200 mg) by mouth at bedtime 60 tablet 11 09/23/2024 10/23/2024 Active Start: 03-25-2024 End: 09-23-2024 take 3 tablets by mouth at bedtime traZODone (Desyrel) 50 MG tablet Indications: Chronic insomnia Take 3 Tablets (150mg( by mouth at bedtime 270 tablet 3 03/25/2024 09/23/2024 Discontinued (Reorder) Start: 07-31-2023 take 3 tablets by mo uth at bedtime traZODone (Desyrel) 50 MG tablet Indications: Chronic insomnia Take 3 tablets (150 mg) by mouth at bedtime. Take 3 Tablets (150mg( by mouth at bedtime 90 tablet 11 07/31/2023 Active Start: 09-02-2022 take 100 mg by mouth once elbert y 100 mg, Oral, NIGHTLY, First dose on Fri10/28/22 at 2100, Until Discontinued Start: 03-25-2022 take 1 tablet by dhaval once daily at bedtime traZODONE 50 mg Tab 50 mg = 1 tab(s), Oral, Once a day (at bedtime), Refills(s) 0 Start Date: 03/25/22 Status: Ordered Trelegy Ellipta 100 mcg-62.5 mcg-25 mcg inhalation powder (1 source) Start: 03-26-2022 take 1 puff(s) by inhalation once daily Trelegy Ellipta 100 mcg-62.5 mcg-25 mcg inhalation powder = 1 puff(s), Inhalation, Daily, Refills(s) 0 Start Date: 03/26/22 Status: Ordered Turmeric extract (9 sources) Turmeric (CURCUM IN 95 PO) Take by mouth Active End: 10-25-2022 take 1 capsule by mouth once daily turmeric 500 MG CAPS Take by mouth daily 0 10/25/2022 Discontinued (Therapy completed) take 1 capsule by mo [facility] once daily turmeric 500 MG CAPS Take by mouth daily 0 Active turmeric 500 MG CAPS Take by mouth 0 Active Turmeric (CURCUM IN 95) 500 MG CAPS Take by mouth 0 Suspended Turmeric (CURCUM IN 95) 500 MG CAPS Take by mouth 0 Active ubidecarenone 100 mg / vitam in e 5 unt oral capsule (6 sources) coenzyme Q-10 10 0 MG capsule 1 capsule 1 (one) time each day at the same time Active vitamin e 450 mg oral capsul e (12 sources) alpha tocopherol (Vitamin E) 1000 units capsule 1 (one) time each day at the same time. Active End: 08-28-2022 Vitamin E 100 UNIT/GM CREA v itamin E take 1 tablet per day 0 08/28/2022 Discontinued (Therapy completed) zinc gluconate 50 mg oral ta blet (6 sources) zinc gluconate 5 0 MG tablet 1 (one) time each day at the same time. Active Completed/Discontinued Medications Medication Drug Class(es) Dates Sig (Normalized) Sig (Original) acetaminophen 325 mg oral tablet (1 source) Start: 09-02-2022 take 650 mg by mouth every six hours, then take 4000 mg by mouth every twenty-four hours 650 mg, Oral, EVERY 6 HOURS, First dose on Fri09/02/22 at 1330, Until Discontinued Maximum dose of acetaminophen is 4000 mg from all sources in 24 hours. Sac 500 MG TABS (7 sources) take 1 tablet by mouth once daily Sac 500 MG TABS Take by mouth daily 0 Suspended take 1 tablet by mouth once elbert y Sac 500 MG TABS Take by mouth daily 0 Active Sac 500 MG T ABS Take by mouth 0 Suspended Sac 500 MG T ABS Take by mouth 0 Active ascorbic acid 500 mg chewable tablet (17 sources) Vitamin C Start: 09-02-2022 take 1000 mg by mouth once daily 1,000 mg, Oral, DAILY, First dose on Fri09/02/22 at 2030, Until Discontinued take 1 tablet by mouth in the mo rning ascorbic acid (Vitamin C) 1000 MG tablet Take 1,000 mg by mouth in the morning. Active Ascorbic Acid (V itamin C) 500 MG capsule every 12 (twelve) hours. 0 Active B Complex Vitamins (VITAMIN B COMPLEX 100 IJ) (10 sources) B Complex Vitami ns (VITAMIN B COMPLEX 100 IJ) Take by mouth daily 0 Suspended B Complex Vitami ns (VITAMIN B COMPLEX 100 IJ) Take by mouth daily 0 Active End: 08-28-2022 B Complex Vitamins (VITAMIN B COMPLEX 100 IJ) vitamin B complex 0 08/28/2022 Discontinued (DUPLICATE) B Complex Vitami ns (VITAMIN B COMPLEX 100 IJ) vitamin B complex 0 Suspended B Complex Vitami ns (VITAMIN B COMPLEX 100 IJ) Take by mouth 0 Suspended B Complex Vitami ns (VITAMIN B COMPLEX 100 IJ) vitamin B complex 0 Active B Complex Vitami ns (VITAMIN B COMPLEX 100 IJ) Take by mouth 0 Active bupivacaine hydrochloride 5 mg/ml injectable solution (4 sources) Amide Local Anesthetic Start: 09-23-2024 End: 09-23-2024 bupivacaine (Marcaine) 0.5 % injection 5 mg Start: 09-23-2024 End: 09-23-2024 bupivacaine (Marcaine) 0.5 % injection 5 mg Start: 09-23-2024 End: 09-23-2024 5 mg (1 mL), Injection, Once , On Fri09/23/24 at 1645, For 1 dose Start: 09-23-2024 End: 09-23-2024 5 mg (1 mL), Injection, Once , On Fri09/23/24 at 1645, For 1 dose calcium carbonate 1500 mg oral tablet (14 sources) Start: 10-28-2022 take 600 mg by mouth twice daily at mealtime 600 mg, Oral, 2 TIMES DAILY WITH MEALS, First dose on Fri10/28/22 at 1200, Until Discontinued calcium carbonat e (Os-Maritza) 1250 (500 Ca) MG tablet every 12 (twelve) hours. Active carvedilol 6.25 mg oral tablet (11 sources) alpha-Adrenergic Elmo, beta-Adrenergic Elmo Start: 09-03-2022 take 6.25 mg by mouth twice daily at mealtime 6.25 mg, Oral, 2 TIMES DAILY WITH MEALS, First dose on Fri10/28/22 at 1700, Until Discontinued Administer with food to minimize the risk of orthostatic hypotension ceFAZolin (ANCEF) 2000 mg in sterile water 20 mL IV syringe (2 sources) Start: 10-28-2022 End: 10-29-2022 ceFAZolin (ANCEF) 2000 mg in sterile water 20 mL IV syringe Start: 09-02-2022 End: 09-02-2022 2,000 mg, IntraVENous, EVERY 8 HOURS, 2 doses, First dose on Fri09/02/22 at 1700, Last dose on Fri09/03/22 at 0100 Antimicrobial Indications: Surgical Prophylaxis Administer over 5 mins. Post-op cholecalciferol 0.025 mg oral tablet (14 sources) Vitamin D Start: 10-29-2022 take 6000 [IU] by mouth once daily Labeling may look different. 25 [id number] Units. Please double check dosages. 6,000 Units, Oral, DAILY, First dose on Fri10/29/22 at 0900, Until Discontinued cholecalciferol (Vitamin D-3) 125 MCG (5000 UT) tablet Take 6,000 Units by mouth Active [facility] Cholecalciferol (VITAMIN D3) 125 MCG (5000 UT) TABS Take 6,000 Units by mouth daily 0 Suspended End: 08-28-2022 take 3 capsules by mouth once daily vitamin D 25 MCG (1000 UT) CAPS Vitamin D3 25 mcg (1,000 unit) capsule Take 3 capsules every day by oral route. 0 08/28/2022 Discontinued (Therapy completed) clobetasol propionate 0.0005 mg/mg topical ointment (4 sources) Corticosteroid Start: 06-17-2022 End: 10-25-2022 clobetasol (TEMOVATE) 0.05 % ointment Apply topically 2 times daily as needed (vulvar discomfort) Apply topically 2 times daily. 1 each 1 06/17/2022 10/25/2022 Discontinued (Therapy completed) ubidecarenone 100 mg oral capsule (6 sources) take 1 capsule by mouth once daily Coenzyme Q10 (CO Q 10) 100 MG CAPS Take 1 capsule by mouth daily 0 Suspended Coenzyme Q10 (CO Q 10) 100 MG CAPS Take by mouth 0 Active cyclobenzaprine hydrochloride 10 mg oral tablet (4 sources) Muscle Relaxant Start: 10-28-2022 End: 10-29-2022 take 5 mg by mouth once daily as needed for muscle spasms 5 mg, Oral, NIGHTLY PRN, Starting on Fri10/28/22 at 2100, Until Fri10/29/22 at 0726, Muscle spasms Start: 09-03-2022 take 5 mg by mouth o nce daily as needed 5 mg, Oral, NIGHTLY PRN, Starting on Fri09/03/22 at 2100, Until Discontinued, Muscle spasms take 5 mg by mouth o nce daily as needed for muscle spasms cyclobenzaprine (FLEXERIL) 10 MG tablet Take 5 mg by mouth nightly as needed for Muscle spasms 0 Suspended dexamethasone phosphate 4 mg/ml injectable solution (6 sources) Corticosteroid Start: 09-23-2024 End: 09-23-2024 dexAMETHasone sod phos (Decadron) injection 4 mg Start: 09-23-2024 End: 09-23-2024 dexAMETHasone sod phos (Deca dron) injection 4 mg Start: 09-23-2024 End: 09-23-2024 4 mg (1 mL), Injection, Once , On Sonia 09/23/24 at 1645, For 1 dose Start: 09-23-2024 End: 09-23-2024 4 mg (1 mL), Injection, Once , On Sonia 09/23/24 at 1645, For 1 dose Start: 10-28-2022 End: 10-29-2022 dexamethasone (DECADRON) inj ection 4 mg Start: 09-02-2022 End: 10-25-2022 2 mg, IntraVENous, EVERY 8 H OURS, First dose on Fri09/02/22 at 1700, For 3 doses fluticasone propionate 0.05 mg/actuat metered dose nasal spray (1 source) Corticosteroid Start: 10-28-2022 take 1 spray(s) nasal route once daily 1 spray, Each Nostril, DAILY, First dose on Fri10/28/22 at 1200, Until Discontinued Substituted for Mometasone (NASONEX). gabapentin 800 mg oral tablet (20 sources) Anti-epileptic Agent Start: 07-05-2024 End: 10-23-2024 gabapentin (Neurontin) 800 MG tablet Indications: Focal epilepsy (CMS/HCC) Take 1 tablet (800 mg) by mouth in the morning and 1 tablet (800 mg) at noon and 1 tablet (800 mg) in the evening and 1 tablet (800 mg) before bedtime. 360 tablet 1 07/05/2024 09/23/2024 Discontinued (Reorder) Start: 10-21-2023 End: 01-19-2024 take 1 tablet by mouth in the morning, then take 1 tablet by mouth in the evening, then take 1 tablet by mouth at bedtime gabapentin (Neurontin) 800 MG tablet Indications: Focal epilepsy (CMS/HCC) Take 1 tablet (800 mg) by mouth in the morning and 1 tablet (800 mg) in the evening and 1 tablet (800 mg) before bedtime. 270 tablet 1 10/21/2023 01/19/2024 Active Start: 10-29-2022 End: 10-29-2022 take 2 tablets by mouth at bedtime gabapentin (NEURONTIN) 800 MG tablet Take 2 tablets by mouth at bedtime for 7 doses. 90 tablet 3 10/29/2022 10/29/2022 Discontinued (Stop Taking at Discharge) Start: 10-29-2022 End: 11-08-2022 take 1 tablet by mouth twice daily gabapentin (NEURONTIN) 800 MG tablet Take 1 tablet by mouth 2 times daily for 10 days. 90 tablet 3 10/29/2022 11/08/2022 Active Start: 10-28-2022 End: 10-29-2022 gabapentin (NEURONTIN) table t 1,600 mg Start: 10-28-2022 End: 10-28-2022 take 800 mg by mouth four times daily 800 mg, Oral, 4 TIMES DAILY, First dose on Fri10/28/22 at 1345, Until Discontinued Start: 09-04-2022 gabapentin (NE URONTIN) capsule 1,600 mg Start: 03-29-2022 End: 09-04-2022 take 800 mg by mouth four times daily 800 mg, Oral, 4 TIMES DAILY, First dose on Fri09/02/22 at 2100, Until Discontinued End: 10-29-2022 take 4 capsules by mouth once daily gabapentin (NEURONTIN) 400 MG capsule Take 1,600 mg by mouth nightly. 0 10/29/2022 Discontinued (Stop Taking at Discharge) glipiZIDE 5 mg oral tablet (11 sources) Sulfonylurea Start: 10-28-2022 take 5 mg by mouth once daily 5 mg, Oral, DAILY, First dose on Fri10/28/22 at 1200, Until Discontinued Start: 09-02-2022 End: 09-02-2022 take 5 mg by mouth once daily 5 mg, Oral, DAILY, First dose on Fri09/02/22 at 2030, Until Discontinued iopamidol (ISOVUE-370) 76 % injection 75 mL (1 source) Start: 09-04-2022 End: 09-04-2022 iopamidol (ISOVUE-370) 76 % injection 75 mL lidocaine 0.05 mg/mg topical ointment (4 sources) Antiarrhythmic, Amide Local Anesthetic Start: 06-17-2022 End: 10-25-2022 lidocaine (XYLOCAINE) 5 % ointment Apply topically 3 times daily as needed for Pain Apply topically as needed. 1 each 0 06/17/2022 10/25/2022 Discontinued (Therapy completed) melatonin 3 mg oral tablet (15 sources) Start: 10-28-2022 take 9 mg by mouth once daily 9 mg, Oral, NIGHTLY, First dose on Fri10/28/22 at 2100, Until Discontinued Start: 09-02-2022 take 9 mg by mouth once daily 9 mg, Oral, NIGHTLY, First dose on Fri09/02/22 at 2100, Until Discontinued take 3 tablets by mo uth at bedtime melatonin 3 MG tablet 3 tas Orally at bedtime Active take 9 mg by mouth once daily ME LATONIN PO Take 9 mg by mouth nightly 0 Suspended 1 ml morphine sulfate 2 mg/ml cartridge (1 source) Opioid Agonist Start: 09-02-2022 End: 09-02-2022 morphine (PF) injection 2 mg Multiple Vitamin (MULTIVITAMIN ADULT PO) (6 sources) Multiple Vitamin (MULTIVITAMIN ADULT PO) Take by mouth 0 Suspended Multiple Vitamin (MULTIVITAMIN ADULT PO) Take by mouth 0 Active NONFORMULARY (2 sources) NONFORMULARY NUT RIFERON-2 1 TAB DAILY 0 Suspended NONFORMULARY NUT RIFERON-2 1 TAB DAILY 0 Active nystatin 100 unt/mg topical ointment (2 sources) Polyene Antifungal Start: 06-17-2022 End: 08-28-2022 nystatin (MYCOSTATIN) [id number] UNIT/GM ointment Apply topically 2 times daily. 1 each 1 06/17/2022 08/28/2022 Discontinued (LIST CLEANUP) 2 ml ondansetron 2 mg/ml injection (2 sources) Serotonin-3 Receptor Antagonist Start: 10-28-2022 End: 10-28-2022 ondansetron (ZOFRAN) injection 4 mg Start: 09-02-2022 4 mg, IntraVEN ous, EVERY 6 HOURS PRN, Starting on Fri09/02/22 at 1306, Until Discontinued, Nausea, Vomiting oxyCODONE hydrochloride 5 mg oral tablet (1 source) Opioid Agonist Start: 06-17-2022 End: 06-17-2022 oxyCODONE (ROXICODONE) immediate release tablet 5 mg Start: 06-17-2022 End: 06-17-2022 oxyCODONE (ROXICODONE) immed iate release tablet 5 mg pioglitazone 15 mg oral tablet (11 sources) Peroxisome Proliferator Receptor alpha Agonist, Peroxisome Proliferator Receptor gamma Agonist, Thiazolidinedione Start: 10-28-2022 take 15 mg by mouth once daily 15 mg, Oral, DAILY, First dose on Fri10/28/22 at 1215, Until Discontinued Start: 09-02-2022 End: 09-02-2022 take 15 mg by mouth once daily 15 mg, Oral, DAILY, Fir st dose on Fri09/02/22 at 2030, Until Discontinued take 1 tablet by dhaval th once daily pioglitazone (ACTOS) 30 MG tablet Take 1 tablet by mouth daily 0 Suspended Probiotic Product (PROBIOTIC -10 PO) (2 sources) Probiotic Produc t (PROBIOTIC-10 PO) Take by mouth daily 0 Suspended Probiotic Produc t (PROBIOTIC-10 PO) Take by mouth daily 0 Active red yeast rice 600 mg oral tablet (6 sources) take 1 tablet by dhaval th once daily Red Yeast Rice 600 MG TABS Take by mouth daily 0 Suspended soybean lecithin 1200 mg oral capsule (6 sources) take 1 capsule by mo uth once daily lecithin 1200 MG CAPS capsule Take by mouth daily 0 Suspended Problems Active Problems Problem Classification Problem Date Documented Da te Episodic/Chronic Acute cerebrovascular disease (10 sources) Cerebral infarction, unspecified; Translations: [Cerebrovascular accident] Onset: 11-08-2022 Chronic Anxiety disorders (15 sources) Anxiety; Translations: [Anxiety disorder, unspecified] Onset: 02-11-2014 03-27-2022 Chronic Diabetes mellitus without complication (17 sources) Diabetes mellitus; Translations: [Type 2 diabetes mellitus] Onset: 08-04-2019 03-27-2022 Chronic Disorders of lipid metabolism (12 sources) Hyperlipidemia; Translations: [Hyperlipidemia, unspecified] Onset: 11-12-2022 03-27-2022 Chronic Epilepsy; convulsions (20 sources) Temporal lobe epilepsy; 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] Onset: 11-19-2021 03-27-2022 Chronic Epilepsy; convulsions (2 sources) Seizure; Translations: [Unspecified convulsions] 12-25-2023 Episodic Essential hypertension (13 sources) Hypertensive disorder; Translations: [Essential hypertension] Onset: 01-24-2021 03-27-2022 Chronic Miscellaneous mental health disorders (2 sources) Eating disorder; Translations: [Chronic insomnia] 03-27-2022 Chronic Mood disorders (15 sources) Depressive disorder; Translations: [Depressive disorder] Onset: 02-11-2014 03-27-2022 Chronic Mycoses (1 source) Candidal vulvovaginitis; Translations: [Candidiasis of vulva and vagina] Episodic Nutritional deficiencies (1 source) Vitamin D deficiency, unspecified; Translations: [VITAMIN D DEFICIENCY UNSPECIFIED] Onset: 11-12-2022 Chronic Occlusion or stenosis of precerebral arteries (1 source) Occlusion and stenosis of bilateral carotid arteries; Translations: [OCCLUSION AND STENOS PAU CAROTID ART] Onset: 05-03-2022 Chronic Osteoarthritis (3 sources) Arthritis of left knee; Translations: [Unilateral primary osteoarthritis, left knee] Onset: 03-25-2024 03-25-2024 Chronic Other and unspecified benign neoplasm (1 source) Parathyroid adenoma 03-27-2022 Episodic Other bone disease and musculoskeletal deformities (4 sources) Other specified disorders of bone density and structure, other site; Translations: [OTH D/O BONE DEN STRUCT OTH SITE] Onset: 03-07-2023 Episodic Other connective tissue disease (3 sources) Trochanteric bursitis of right hip; Translations: [Trochanteric bursitis, right hip] Onset: 09-23-2024 09-23-2024 Episodic Other nervous system disorders (1 source) Difficulty in walking, not elsewhere classified; Translations: [DIFFICULTY IN WALKING NEC] Onset: 05-24-2022 Chronic Other nervous system disorders (6 sources) Carpal tunnel syndrome; Translations: [Carpal tunnel syndrome, right upper limb] Onset: 11-06-2023 11-06-2023 Chronic Other nervous system disorders (6 sources) Brachial plexus disorder; Translations: [Brachial plexus disorders] Onset: 04-13-2023 04-13-2023 Chronic Other nervous system disorders (3 sources) Ulnar neuropathy; Translations: [Lesion of ulnar nerve, bilateral upper limbs] Onset: 07-21-2023 07-21-2023 Chronic Other nervous system disorders (6 sources) Difficulty walking; Translations: [Difficulty in walking, not elsewhere classified] Onset: 07-31-2023 07-31-2023 Chronic Other nervous system disorders (6 sources) Mortons neuroma of right foot; Translations: [Lesion of plantar nerve, right lower limb] Onset: 07-31-2023 07-31-2023 Chronic Other nervous system disorders (6 sources) Right foot neuritis; Translations: [Unspecified mononeuropathy of right lower limb] Onset: 07-31-2023 07-31-2023 Chronic Other nervous system disorders (3 sources) Bilateral ulnar nerve disorder; Translations: [Lesion of ulnar nerve, bilateral upper limbs] Onset: 07-21-2023 07-21-2023 Chronic Other nervous system disorders (3 sources) Carpal tunnel syndrome of right wrist; Translations: [Carpal tunnel syndrome, right upper limb] Onset: 11-06-2023 12-25-2023 Chronic Other nervous system disorders (3 sources) Disorder of nerve root and/or plexus; Translations: [Other nerve root and plexus disorders] Onset: 09-23-2024 09-23-2024 Chronic Other nervous system disorders (2 sources) Postoperative pain ; Translations: [Other acute postprocedural pain] Episodic Other nervous system disorders (1 source) Acute postoperative pain; Translations: [Other acute postprocedural pain] 11-06-2023 Episodic Other non-traumatic joint disorders (1 source) Pain in left wrist; Translations: [Pain in left wrist] Onset: 02-08-2024 Episodic Other nutritional; endocrine; and metabolic disorders (1 source) Body mass index 30+ - obesity 03-29-2022 Chronic Other nutritional; endocrine; and metabolic disorders (6 sources) Obesity; Translations: [Obesity, unspecified] Onset: 11-19-2021 07-31-2023 Chronic Other nutritional; endocrine; and metabolic disorders (6 sources) Severe obesity; Translations: [Morbid (severe) obesity due to excess calories] Onset: 12-31-2021 07-31-2023 Chronic Other screening for suspected conditions (not mental disorders or infectious disease) (4 sources) Encounter for screening mammogram for malignant neoplasm of breast; Translations: [ENC SCR MAMMO MALIG NEOPLASM BREAST] Onset: 03-11-2023 Episodic Other skin disorders (6 sources) Lichen sclerosus et atrophicus; Translations: [Circumscribed scleroderma] Onset: 11-19-2021 07-31-2023 Chronic Other upper respiratory disease (1 source) 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; Translations: [Allergic rhinitis due to animal (cat) (dog) hair and dander] 09-23-2024 Chronic Residual codes; unclassified (12 sources) Obstructive sleep apnea syndrome; Translations: [Obstructive sleep apnea (adult) (pediatric)] Onset: 11-19-2021 03-27-2022 Chronic Residual codes; unclassified (6 sources) Idiopathic sleep related non-obstructive alveolar hypoventilation; Translations: [Idiopathic sleep related nonobstructive alveolar hypoventilation] Onset: 04-13-2023 04-13-2023 Chronic Residual codes; unclassified (1 source) Family history of malignant neoplasm of breast; Translations: [FAMILY HX MALIG NEOPLASM OF BREAST] Onset: 03-18-2023 Episodic Residual codes; unclassified (1 source) Family history of malignant neoplasm of ovary; Translations: [FAM HX MALIGNANT NEOPLASM OVARY] Onset: 03-18-2023 Episodic Unclassified (1 source) Patient encounter status; Translations: [Preop testing] Unclassified (1 source) PERSONAL HISTORY OF COVID-19; Translations: [PERSONAL HISTORY OF COVID-19] Onset: 04-16-2022 Past or Other Problems Problem Classification Problem Date Documented Date Episodic/Chronic Conditions associated with dizziness or vertigo (15 sources) Dizziness and giddiness; Translations: [Other peripheral vertigo, unspecified ear] Onset: 05-23-2022 Episodic Diabetes mellitus without complication (1 source) Hyperglycemia, unspecified; Translations: [HYPERGLYCEMIA UNSPECIFIED] Onset: 04-16-2022 Episodic Malaise and fatigue (1 source) Other fatigue; Translations: [OTHER FATIGUE] Onset: 11-12-2022 Episodic Nausea and vomiting (6 sources) Postoperative nausea and vomiting; Translations: [Nausea with vomiting, unspecified] Onset: 07-31-2023 07-31-2023 Episodic Nutritional deficiencies (6 sources) Vitamin B12 deficiency (non anemic); Translations: [Deficiency of other specified B group vitamins] Onset: 07-31-2023 07-31-2023 Episodic Other aftercare (10 sources) Long-term current use of systemic steroid; 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] Onset: 09-02-2022 Episodic Other aftercare (1 source) Other terminal gauger supervisor (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; Translations: [OTH PRISON CURRENT DRUG THERAPY] Onset: 05-15-2022 Episodic Other connective tissue disease (11 sources) History of cervical spine fusion; Translations: [Arthrodesis status] Onset: 09-02-2022 Episodic Other connective tissue disease (1 source) Myalgia, unspecified site; Translations: [MYALGIA UNSPECIFIED SITE] Onset: 05-24-2022 Episodic Other connective tissue disease (4 sources) Pain in right foot; Translations: [PAIN IN RIGHT FOOT] Onset: 03-20-2022 Episodic Other connective tissue disease (6 sources) Muscle pain; Translations: [Myalgia, unspecified site] Onset: 07-31-2023 07-31-2023 Episodic Other female genital disorders (6 sources) Vaginal intraepithelial neoplasia grade 1; 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] Onset: 11-19-2021 07-31-2023 Episodic Other lower respiratory disease (1 source) Personal history of pneumonia (recurrent); Translations: [PERSONAL HX OF PNEUMONIA RECURRENT] Onset: 04-16-2022 Episodic Other nervous system disorders (1 source) Other abnormalities of gait and mobility; Translations: [OTHER ABNORMALITIES GAIT AND MOBILITY] Onset: 04-16-2022 Episodic Other nervous system disorders (8 sources) Allodynia; Translations: [Other disturbances of skin sensation] Onset: 07-31-2023 07-31-2023 Episodic Other nervous system disorders (1 source) Other acute postprocedural pain; Translations: [Other acute postprocedural pain] Onset: 11-06-2023 Episodic Other non-traumatic joint disorders (4 sources) Pain in left shoulder; Translations: [PAIN IN LEFT SHOULDER] Onset: 05-12-2022 Episodic Other skin disorders (1 source) Sebaceous cyst; Translations: [SEBACEOUS CYST] Onset: 03-28-2022 Episodic Pleurisy; pneumothorax; pulmonary collapse (10 sources) Atelectasis; Translations: [Atelectasis] Onset: 09-04-2022 Episodic Residual codes; unclassified (10 sources) Insomnia; Translations: [Insomnia, unspecified] Onset: 10-28-2022 03-26-2022 Episodic Residual codes; unclassified (1 source) Acquired absence of other specified parts of digestive tract; Translations: [ACQ ABSENCE OTH PART DIGESTV TRACT] Onset: 05-15-2022 Episodic Residual codes; unclassified (6 sources) Amnesia; Translations: [Other amnesia] Onset: 07-31-2023 07-31-2023 Episodic Respiratory failure; insufficiency; arrest (adult) (10 sources) Acute respiratory failure; Translations: [Acute respiratory failure with hypoxia] Onset: 09-03-2022 Episodic Spondylosis; intervertebral disc disorders; other back problems (19 sources) Spinal stenosis in cervical region; Translations: [Spinal stenosis, cervical region] Onset: 05-24-2022 Episodic Results Test Name Value Interpretation Reference Range Facility [facility] 09-17-2024 [facility] [id number] Kristin Null 1960 F Date Provider Department [facility] 09/17/2024 ROSALBA CURIEL [facility] No family history on file Normal [facility] 08-20-2024 [facility] [id number] Kristin Null 1960 F Date Provider Department Center 08/20/2024 ROSALBA CURIEL [facility] No family history on file Normal [facility] 07-30-2024 [facility] [id number] Kristin Null 1960 F Date Provider Department Center 07/30/2024 ROSALBA CURIEL [facility] No family history on file Normal [facility] 06-25-2024 [facility] [id number] Kristin Null 1960 F Date Provider Department Center 06/25/2024 ROSALBA CURIEL [facility] No family history on file Normal [facility] 05-28-2024 [facility] [id number] Kristin Null 1960 F Date Provider Department Center 05/28/2024 ROSALBA CURIEL [facility] No family history on file Normal [facility] 05-03-2024 [facility] [id number] Kristin Null 1960 F Date Provider Department Center 05/03/2024 ROSALBA CURIEL [facility] No family history on file Normal [facility] 04-15-2024 [facility] [id number] Kristin Null 1960 F Date Provider Department Center 04/15/2024 ROSALBA CURIEL [facility] No family history on file Normal [facility] 04-02-2024 [facility] [id number] Kristin Null Ann 1960 F Date Provider Department Center 04/02/2024 ROSALBA CURIEL [facility] No family history on file Normal [facility] 03-11-2024 [facility] [id number] Kristin Null 1960 F Date Provider Department Center 03/11/2024 ROSALBA CURIEL [facility] No family history on file Normal [facility] 01-30-2024 [facility] [id number] Kristin Null 1960 F Date Provider Department Center 01/30/2024 ROSALBA CURIEL [facility] No family history on file Normal [facility] 01-01-2024 [facility] [id number] Kristin Null 1960 F Date Provider Department Center 01/01/2024 ROSALBA CURIEL [facility] No family history on file [facility] Clinical Supporton 4 Clinical Support [id number] Kristin Null 1960 F Date Provider Department Center 11/20/2023 ROSALBA CURIEL [facility] No family history on file [facility] OPERATIVE REPORTon 3 OPERATIVE REPORT [address] [address] OPERATIVE REPORT PATIENT NAME: KRISTIN NULL : 1960 MED REC NO: [id number] ROOM: ACCOUNT NO: [id number] ADMIT DATE: 11/06/2023 PROVIDER: Endy Cruz MD DATE OF PROCEDURE: 11/06/2023 PREOPERATIVE DIAGNOSIS: Right carpal tunnel syndrome. POSTOPERATIVE DIAGNOSIS: Right carpal tunnel syndrome. PROCEDURE: Right carpal tunnel release revision. SURGEON: Endy Cruz MD ANESTHESIA: Local anesthesia with MAC. INDICATIONS: The patient is a 63-year lady with numbness, tingling, weakness to the hand, evidenced by nerve testing of carpal tunnel syndrome to the right wrist. She had a history of prior carpal tunnel release, with no numbness, tingling symptoms despite a nonoperative treatment program and she presents for surgical treatment. The surgical procedure, risks, benefits and complications were discussed with good comprehension and informed consent obtained. NARRATIVE PROCEDURE: The patient was brought to operating room, placed under appropriate general anesthesia, and transferred to the operating table in the supine position. Arms placed at her side, and she was given perioperative antibiotics prior to incision time, and VTE prophylaxis done intraoperatively through SCD cuffs. The right hand was prepped and draped in the usual fashion. Time-out performed. We had the patient under her sedation through Anesthesia, and at this point, we went ahead and then infiltrated the skin along the carpal tunnel old incision, and along the dorsal ulnar nerve branches. Once we had good level anesthesia, we then incised along the prior incision. Skin incised sharply with scalpel. We then dissected sharply through the subcutaneous tissue and scar, down to what appeared to be the scarred transverse carpal ligament. We then threw loupe magnification visualization, used a scalpel to sharply dissect through that until we got to just through it. We then did that both proximal and distal sharply under direct visualization. Nerve was underlying, with some scarring around it. We then used our tenotomies to further open up initially first distal, ventral to the scar, got that freed, and then used our tenotomy to open that. We then went proximal to the palm, again opened up proximal ventral to make sure everything was freed above the scar, and once that was confirmed no crossing nerve, we then opened up with the tenotomies. We then gently dissected the scar off along the edge of the nerve to free up the nerve itself to keep it from being tethered to underlying tissues and now appeared to be free. We used bipolar cautery for some small bleeders. At this point, we had nice dry wound. We then closed the skin and subcutaneous tissue back using 3-0 Prolene sutures. We placed a bulky dressing, wrapped the arm with Webril and Gianni wrap, and the patient then transferred to the bed, awoke from sedation and brought to recovery room in satisfactory condition. ENDY CRUZ MD [id number] Doc#: [id number] CC: Endy Cruz MD Normal [facility] POC Glucose Fingerstickon Glucose [Mass/Vol] 134 mg/dL High 65 - 105 mg/dL [facility] Comment on above: TESTING PERFORMED AT [facility] [address] [place] [address] Interpretation and review of laboratory results Abnormal [facility] 10-20-2023 [facility] [id number] Kristin Null 1960 F Date Provider Department Center 10/20/2023 JulianoROSALBA GREGORIO [facility] No family history on file Normal [facility] OPERATIVE REPORTon OPERATIVE REPORT [address] [address] OPERATIVE REPORT PATIENT NAME: KRISTIN NULL : 1960 MED REC NO: [id number] ROOM: ACCOUNT NO: [id number] ADMIT DATE: 08/18/2023 PROVIDER: Endy Cruz MD DATE OF PROCEDURE: 08/18/2023 SURGEON: Endy Cruz MD STERILE PREPARATION TECHNICIAN: Hayder Burch MD ANESTHESIA: General inhalation. PREOPERATIVE DIAGNOSIS: Left carpal tunnel syndrome. POSTOPERATIVE DIAGNOSIS: Left carpal tunnel syndrome. PROCEDURE: Left carpal tunnel release under general anesthesia. INDICATIONS: The patient is a 62-year-old lady with significant pain and tenderness secondary to her carpal tunnel syndrome with numbness, tingling and weakness to her left hand. EMG testing confirmed that, and she was counseled on surgical treatment. The surgical procedure, risks, benefits and complications were discussed with good comprehension and informed consent obtained. NARRATIVE OF PROCEDURE: The patient was brought into the operating room and placed under appropriate general anesthesia, and transferred to the operating room table in the supine position on a Michael frame. Left hand was free up to the side and she was given perioperative antibiotics given prior to incision time, and VTE prophylaxis done intraoperatively through SCD cuffs. The left hand was prepped and draped in the usual fashion. Time-out performed. We had a tourniquet on the arm but did not inflate it, and at this point, infiltrated the skin and the tissues with the 0.5% Marcaine plain. We then made our longitudinal incision along the line of the first metacarpal along the skin crease we had. We dissected down through the skin and subcutaneous tissues. We identified the palmar fascia, opened that sharply, and then opened up down to the transverse carpal ligament. We then did under direct loupe magnification surgical incision through the transverse carpal ligament and from the underlying nerve. We then used small tenotomies to go both proximal and distal, freeing up the remainder of the ligament. Proximally, we were able to look above the ligament, making sure everything was freed. There was no nerve crossing. Once that was opened, we had good decompression. We got bipolar cautery for the small punctate bleeding. At this point, we then closed the skin using 3-0 nylon sutures in a horizontal mattress fashion. We then placed our dressing and wrapped with Webril and an Gianni wrap. The patient was then awoken from anesthesia, transferred to the bed, and brought to recovery room in satisfactory condition. ENDY CRUZ MD TA/[id number] Doc#: [id number] CC: Endy Cruz MD Normal [facility] BUN + Creatinineon 3 Creatinine [Mass/Vol] 0.7 mg/dL Normal 0.5-0.9 [facility] Comment on above: Performed By: #### B UNCRT, GLU, CBC, LYTE #### [facility] [employer] [address] [place] [address] Sales Operations: Kenyon Hewitt MD GFR/1.73 sq M.predicted among non-blacks MDRD (S/P/Bld) [Vol rate/Area] mL/min/{1.73_m2} Normal >60 [facility] Comment on above: Result Comment: These results are not intended for use in patients <18 years of age. eGFR results are calculated without a race factor using the 2020 CKD-EPI equation. Careful clinical correlation is recommended, particularly when comparing to results calculated using previous equations. The CKD-EPI equation is less accurate in patients with extremes of muscle mass, extra-renal metabolism of creatine, excessive creatine ingestion, or following therapy that affects renal tubular secretion. Performed By: #### B UNCRT, GLU, CBC, LYTE #### [facility] [address] [place] [address] Sales Operations: Kenyon Hewitt MD Urea nitrogen [Mass/Vol] 19 mg/dL Normal 8-23 [facility] Comment on above: Performed By: #### B UNCRT, GLU, CBC, LYTE #### [facility] [employer] [address] [place] [address] Sales Operations: Kenyon Hewitt MD CBCon 08-05-2023 Erythrocyte distribution width (RBC) [Ratio] 12.8 % Normal 11.8-14.4 [facility] Comment on above: Performed By: #### B UNCRT, GLU, CBC, LYTE #### [facility] [employer] [address] [place] [address] Sales Operations: Kenyon Hewitt MD Hematocrit (Bld) [Volume fraction] 45.0 % Normal 36.3-47.1 [facility] Comment on above: Performed By: #### B UNCRT, GLU, CBC, LYTE #### [facility] [employer] [address] [place] [address] Sales Operations: Kenyon Hewitt MD Hemoglobin (Bld) [Mass/Vol] 15.2 g/dL High 11.9-15.1 [facility] Comment on above: Performed By: #### B UNCRT, GLU, CBC, LYTE #### [facility] [employer] [address] [place] [address] Sales Operations: Kenyon Hewitt MD MCH (RBC) [Entitic mass] 32.3 pg Normal 25.2-33.5 [facility] Comment on above: Performed By: #### B UNCRT, GLU, CBC, LYTE #### [address] [address] Sales Operations: Kenyon Hewitt MD MCHC (RBC) [Mass/Vol] 33.8 g/dL Normal 28.4-34.8 [facility] Comment on above: Performed By: #### B UNCRT, GLU, CBC, LYTE #### [address] [address] Sales Operations: Kenyon Hewitt MD MCV (RBC) [Entitic vol] 95.7 fL Normal 82.6-102.9 [facility] Comment on above: Performed By: #### B UNCRT, GLU, CBC, LYTE #### [place] [address] Sales Operations: Kenyon Hewitt MD NRBC Automated 0.0 per 100 WBC Normal 0.0 [facility] Comment on above: Performed By: #### B UNCRT, GLU, CBC, LYTE #### [address] [address] Sales Operations: Kenyon Hewitt MD Platelet mean volume (Bld) [Entitic vol] 10.0 fL Normal 8.1-13.5 [facility] Comment on above: Performed By: #### B UNCRT, GLU, CBC, LYTE #### [address] [address] Sales Operations: Kenyon Hewitt MD Platelets (Bld) [#/Vol] 201 10*3/uL Normal 138-453 [facility] Comment on above: Performed By: #### B UNCRT, GLU, CBC, LYTE #### [address] [address] Sales Operations: Kenyon Hewitt MD RBC (Bld) [#/Vol] 4.70 10*6/uL Normal 3.95-5.11 [facility] Comment on above: Performed By: #### B UNCRT, GLU, CBC, LYTE #### [facility] [employer] [address] [place] [address] Sales Operations: Kenyon Hewitt MD WBC (Bld) [#/Vol] 7.1 10*3/uL Normal 3.5-11.3 [facility] Comment on above: Performed By: #### B UNCRT, GLU, CBC, LYTE #### [facility] [employer] [address] [place] [address] Sales Operations: Kenyon Hewitt MD Electrolyteson 08-05-2023 Anion gap [Moles/Vol] 10 mmol/L Normal 9-17 [facility] Comment on above: Performed By: #### B UNCRT, GLU, CBC, LYTE #### [facility] [employer] [address] [place] [address] Sales Operations: Kenyon Hewitt MD Chloride [Moles/Vol] 98 mmol/L Normal 98-107 [facility] Comment on above: Performed By: #### B UNCRT, GLU, CBC, LYTE #### [facility] [employer] [address] [place] [address] Sales Operations: Kenyon Hewitt MD CO2 [Moles/Vol] 28 mmol/L Normal 20-31 [facility] Comment on above: Performed By: #### B UNCRT, GLU, CBC, LYTE #### [facility] [employer] [address] [place] [address] Sales Operations: Kenyon Hewitt MD Potassium [Moles/Vol] 4.4 mmol/L Normal 3.7-5.3 [facility] Comment on above: Result Comment: SPEC IMEN SLIGHTLY HEMOLYZED, RESULTS MAY BE ADVERSELY AFFECTED. Performed By: #### B UNCRT, GLU, CBC, LYTE #### [facility] [employer] [address] [place] [address] Sales Operations: Kenyon Hewitt MD Sodium [Moles/Vol] 136 mmol/L Normal 135-144 [facility] Comment on above: Performed By: #### B UNCRT, GLU, CBC, LYTE #### [facility] [address] [place] [address] Sales Operations: Kenyon Hewitt MD Glucoseon 08-05-2023 Glucose [Mass/Vol] 84 mg/dL Normal 70-99 [facility] Comment on above: Performed By: #### B UNCRT, GLU, CBC, LYTE #### [facility] [address] [place] [address] Sales Operations: Kenyon Hewitt MD MG MAMM SCREEN 3D PAU CADon 03-11-2023 MG MAMM SCREEN 3D PAU CAD Patient: KRISTIN NULL Exam Date: 03/11/2023 : 1960 Gender:F Ordering : PITA VENTURA Admission #: [id number] Family : Order #: [id number] CLICK HERE TO VIEW EXAM RADIOLOGY REPORT PROCEDURE: MAMMOGRAM SCREENING 3D BILATERAL CAD COMPARISON: MG MAMM DX 3D RT CAD, 10/03/2021. MG MAMM SCREEN 3D PAU CAD, 09/05/2021. INDICATIONS: Screening mammography Calculator Name NCI Breast Cancer Risk Assessment Tool 5 Year Breast Cancer Risk 2.30% Lifetime Breast Cancer Risk 9.20% Personal Breast Cancer No Personal Ovarian Cancer No Treatments None Family Cancers Niece with breast cancer at age 50; Mother with ovarian cancer at age 93; Sister with uterine cancer at age 63. LOCATION: [facility] BREAST COMPOSITION: Scattered areas fibroglandular density. FINDINGS: DIAGNOSTIC CATEGORY 2--BENIGN FINDING. NO CHANGE FROM COMPARISON. Scattered benign-appearing nodules are present. Scattered benign-appearing calcifications are present. Scattered benign-appearing lymph nodes are present. RIGHT BREAST: No significant suspicious finding. Linear scar markers LEFT BREAST: No significant suspicious finding. RECOMMENDATIONS: ROUTINE MAMMOGRAM AND CLINICAL EVALUATION IN 12 MONTHS. PLEASE NOTE: A NORMAL MAMMOGRAM DOES NOT EXCLUDE THE POSSIBILITY OF BREAST CANCER. A CLINICALLY SUSPICIOUS PALPABLE LUMP SHOULD BE BIOPSIED. Dictated by: Rocío Reyes MD on 03/12/2023 at 09:06 Approved by: Rocío Reyes MD on 03/12/2023 at 09:08 Normal [facility] XR DEXA BONE DENSITYon 03-08 XR DEXA BONE DENSITY EXAMINATION: XR DEX A BONE DENSITY, 03/07/2023 3:31 PM EDT HISTORY: Bone density finding COMPARISON: 2019 TECHNIQUE: Dual-energy X-ray absorptiometry (DEXA) bone density study performed for the axial skeleton. FINDINGS: Bone mineral density bilateral femoral neck measures 0.894 g/sq cm. T score -1.0. 4.4% reduction from the prior exam. The lowest bone mineral density is in the left femoral neck measuring 0.849 g/sq cm. T score -1.4. WHO classification: Osteopenia IMPRESSION: Osteopenia. Moderate fracture risk Electronically authenticated by: ROCÍO REYES Date: 2023-03-08 08:59 Normal [facility] INSULINon 11-09-2022 Insulin 23.0 uIU/mL Normal 2.6-24.9 [facility] Comment on above: Performed By: #### V ITAD #### [facility] [address] [place] [address] Dr. Sveta Velasquez CBC AUTO DIFFon 11-08-2022 BASO # 0.0 103/ul Normal 0.0-0.1 [facility] Comment on above: Performed By: #### V ITAD #### [facility] [address] [place] [address] Dr. Sveta Velasquez Basophils/100 WBC (Bld) 0.5 % Normal 0.2-2.0 [facility] Comment on above: Performed By: #### V ITAD #### [facility] [address] [place] [address] Dr. Sveta Velasquez EO # 0.2 103/ul Normal 0.0-0.7 [facility] Comment on above: Performed By: #### V ITAD #### [facility] [address] [place] [address] Dr. Sveta Velasquez Eosinophils/100 WBC (Bld) 2.6 % Normal 0.9-7.0 [facility] Comment on above: Performed By: #### V ITAD #### [facility] [address] [place] [address] Dr. Sveta Velasquez Erythrocyte distribution width (RBC) [Ratio] 12.7 % Normal 11.0-15.0 [facility] Comment on above: Performed By: #### V ITAD #### [facility] [address] [place] [address] Dr. Sveta Velasquez Hematocrit (Bld) [Volume fraction] 40.5 % Normal 36.0-48.0 [facility] Comment on above: Performed By: #### V ITAD #### [facility] [address] [place] [address] Dr. Sveta Velasquez Hemoglobin (Bld) [Mass/Vol] 13.7 g/dL Normal 12.0-16.0 [facility] Comment on above: Performed By: #### V ITAD #### [facility] [address] [place] [address] Dr. Sveta Velasquez IG # 0.01 10e3/ul Normal 0.00-0.03 [facility] Comment on above: Performed By: #### V ITAD #### [facility] [address] [place] [address] Dr. Sveta Velasquez IG % 0.2 % Normal 0.0-0.5 [facility] Comment on above: Performed By: #### V ITAD #### [facility] [address] [place] [address] Dr. Sveta Velasquez LYMPH # 2.0 103/ul Normal 1.2-3.8 [facility] Comment on above: Performed By: #### V ITAD #### [facility] [address] [place] [address] Dr. Sveta Velasquez Lymphocytes/100 WBC (Bld) 32.4 % Normal 20.5-60.0 [facility] Comment on above: Performed By: #### V ITAD #### [facility] [address] [place] [address] Dr. Sveta Velasquez MANUAL DIFF REQ NO Normal [facility] Comment on above: Performed By: #### V ITAD #### [facility] [address] [place] [address] Dr. Sveta Velasquez MCH (RBC) [Entitic mass] 31.1 pg Normal 26.7-34.0 [facility] Comment on above: Performed By: #### V ITAD #### [facility] [address] [place] [address] Dr. Sveta Velasquez MCHC (RBC) [Mass/Vol] 33.8 g/dL Normal 29.9-35.2 [facility] Comment on above: Performed By: #### V ITAD #### [facility] [address] [place] [address] Dr. Sveta Velasquez MCV (RBC) [Entitic vol] 91.8 fL Normal 81.0-99.0 [facility] Comment on above: Performed By: #### V ITAD #### [facility] [address] [place] [address] Dr. Sveta Velasquez MONO # 0.5 103/ul Normal 0.3-0.8 [facility] Comment on above: Performed By: #### V ITAD #### [facility] [address] [place] [address] Dr. Sveta Velasquez Monocytes/100 WBC (Bld) 8.8 % Normal 1.7-12.0 [facility] Comment on above: Performed By: #### V ITAD #### [facility] [address] [place] [address] Dr. Sveta Velasquez NEUT # 3.4 103/ul Normal 1.4-6.5 [facility] Comment on above: Performed By: #### V ITAD #### [facility] [address] [place] [address] Dr. Sveta Velasquez Neutrophils/100 WBC (Bld) 55.5 % Normal 43.0-75.[address] [facility] Comment on above: Performed By: #### V ITAD #### [facility] [address] [place] [address] Dr. Sveta Velasquez Platelet mean volume (Bld) [Entitic vol] 9.6 fL Normal 9.5-13.5 [facility] Comment on above: Performed By: #### V ITAD #### [facility] [address] [place] [address] Dr. Sveta Velasquez PLT 280 103/ul Normal 150-[address] [facility] Comment on above: Performed By: #### V ITAD #### [facility] [address] [place] [address] Dr. Sveta Velasquez RBC 4.41 106/ul Normal 4.20-5.40 [facility] Comment on above: Performed By: #### V ITAD #### [facility] [address] [place] [address] Dr. Sveta Velasquez WBC 6.1 103/ul Normal 4.0-11.0 [facility] Comment on above: Performed By: #### V ITAD #### [facility] [address] [place] [address] Dr. Sveta Velasquez DILANTINon 11-08-2022 Phenytoin [Mass/Vol] 8.4 ug/mL Critically low 10.0-20.0 [facility] Comment on above: Performed By: #### P HY #### [facility] [address] [place] [address] Dr. Sveta Velasquez FREE T3on 11-08-2022 FREE T3 2.33 pg/mlL Normal 2.18-3.98 [facility] Comment on above: Performed By: #### V ITAD #### [facility] [address] [place] [address] Dr. Sveta Velasquez GLYCOHEMOGLOBIN A1Con 2021 ADA RECOMMENDATION SEE BELOW Normal [facility] Comment on above: Result Comment: ADA RECOMMENDED LIMIT 4.0 - 6.0 ADA THERAPEUTIC TARGET < 7.0 ACTION SUGGESTED > 7.0 Performed By: #### M ISC #### [facility] [address] [place] [address] Dr. Sveta Velasquez Glucose [Mass/Vol] 123 mg/dL Normal [facility] Comment on above: Performed By: #### M ISC #### [facility] [address] [place] [address] Dr. Sveta Velasquez HbA1c (Bld) [Mass fraction] 5.9 % Normal 4.5-6.[address] [facility] Comment on above: Performed By: #### M ISC #### [facility] [address] [address] [address] Sveta Velasquez LIPID PROFILEon 11-08-2022 CHOL-HDL RATIO NORM SEE BELOW Normal [facility] Comment on above: Result Comment: 3.3 - 4.4 LOW RISK 4.4 - 7.1 AVERAGE RISK 7.1 - 11.0 MODERATE RISK >11.0 HIGH RISK Performed By: #### V ITAD #### [facility] [address] [address] [address] Sveta Velasquez Cholesterol [Mass/Vol] 257 mg/dL Critically high <=200 [facility] Comment on above: Performed By: #### V ITAD #### [facility] [address] [address] [address] Sveta Velasquez Cholesterol in HDL [Mass/Vol] 45 mg/dL Normal 40-60 [facility] Comment on above: Performed By: #### V ITAD #### [facility] [address] [address] [address] Sveta Velasquez Cholesterol in LDL [Mass/Vol] 168.8 mg/dL Normal [facility] Comment on above: Performed By: #### V ITAD #### [facility] [address] [address] [address] Sveta Velasquez Cholesterol.total/Chol esterol in HDL [Mass ratio] 5.7 {ratio} Normal [facility] Comment on above: Performed By: #### V ITAD #### [facility] [address] [address] [address] Sveta Velasquez HDL NORMAL > or = 60 mg/dl - LOW CARDIOVASCULAR RISK <40 mg/dl - HIGH CARDIOVASCULAR RISK Normal [facility] Comment on above: Performed By: #### V ITAD #### [facility] [address] [id number] [address] Sveta Velasquez LDL CALC NORMAL SEE BELOW Normal [facility] Comment on above: Result Comment: <100 mg/dl OPTIMAL 100 - 129 mg/dl NEAR OR ABOVE OPTIMAL 130 - 159 mg/dl BORDERLINE HIGH 160 - 189 mg/dl HIGH >190 mg/dl VERY HIGH Performed By: #### V ITAD #### [facility] [address] [place] [address] Dr. Sveta Velasquez Triglyceride [Mass/Vol] 216 mg/dL Critically high <=[address] [facility] Comment on above: Performed By: #### V ITAD #### [facility] [address] [address] [address] Sveta Velasquez VLDL CALC 43.2 mg/dL Normal [facility] Comment on above: Performed By: #### V ITAD #### [facility] [address] [place] [address] Dr. Sveta Velasquez PROF 14(COMP METB)on 022 Albumin [Mass/Vol] 3.9 g/dL Normal 3.4-5.0 [facility] Comment on above: Performed By: #### V ITAD #### [facility] [address] [place] [address] Dr. Sveta Velasquez Albumin/Globulin [Mass ratio] 1.0 {ratio} Normal [facility] Comment on above: Performed By: #### V ITAD #### [facility] [address] [place] [address] Dr. Sveta Velasquez ALP [Catalytic activity/Vol] 97 U/L Normal 46-116 [facility] Comment on above: Performed By: #### V ITAD #### [facility] [address] [place] [address] Dr. Sveta Velasquez ALT [Catalytic activity/Vol] 33 U/L Normal 14-59 [facility] Comment on above: Performed By: #### V ITAD #### [facility] [address] [place] [address] Dr. Sveta Velasquez Anion gap [Moles/Vol] 9.0 mmol/L Normal [facility] Comment on above: Performed By: #### V ITAD #### [facility] [address] [place] [address] Dr. Sveta Velasquez AST [Catalytic activity/Vol] 25 U/L Normal 15-37 [facility] Comment on above: Performed By: #### V ITAD #### [facility] [address] [address] [address] vSeta Velasquez Bilirubin [Mass/Vol] 0.3 mg/dL Normal 0.2-1.[address] [facility] Comment on above: Performed By: #### V ITAD #### [facility] [address] [place] [address] Dr. Sveta Velasquez Calcium [Mass/Vol] 9.6 mg/dL Normal 8.5-10.1 [facility] Comment on above: Performed By: #### V ITAD #### [facility] [address] [place] [address] Dr. Sveta Velasquez Chloride [Moles/Vol] 101 mmol/L Normal 98-107 [facility] Comment on above: Performed By: #### V ITAD #### [facility] [address] [place] [address] Dr. Sveta Velasquez CO2 [Moles/Vol] 34.4 mmol/L Critically high 21.0-32.[address] [facility] Comment on above: Performed By: #### V ITAD #### [facility] [address] [place] [address] Dr. Sveta Velasquez Creatinine [Mass/Vol] 0.76 mg/dL Normal 0.55-1.02 [facility] Comment on above: Performed By: #### V ITAD #### [facility] [address] [place] [address] Dr. Sveta Velasquez EGFR-AF BELIZEAN >60 Normal >=60 [facility] Comment on above: Performed By: #### V ITAD #### [facility] [address] [place] [address] Dr. Sveta Velasquez EGFR-NON AF BELIZEAN >60 Normal >=60 [facility] Comment on above: Performed By: #### V ITAD #### [facility] [address] [place] [address] Dr. Sveta Velasquez Globulin (S) [Mass/Vol] 4.0 g/dL Normal [facility] Comment on above: Performed By: #### V ITAD #### [facility] [address] [place] [address] Dr. Sveta Velasquez Glucose [Mass/Vol] 136 mg/dL Critically high 74-106 [facility] Comment on above: Performed By: #### V ITAD #### [facility] [address] [place] [address] Dr. Sveta Velasquez Potassium [Moles/Vol] 4.4 mmol/L Normal 3.5-5.1 [facility] Comment on above: Performed By: #### V ITAD #### [facility] [address] [place] [address] Dr. Sveta Velasquez Protein [Mass/Vol] 7.9 g/dL Normal 6.4-8.2 [facility] Comment on above: Performed By: #### V ITAD #### [facility] [address] [place] [address] Dr. vSeta Velasquez Sodium [Moles/Vol] 140 mmol/L Normal 136-145 [facility] Comment on above: Performed By: #### V ITAD #### [facility] [address] [place] [address] Dr. Sveta Velasquez Urea nitrogen [Mass/Vol] 19.0 mg/dL Critically high 7.0-18.0 [facility] Comment on above: Performed By: #### V ITAD #### [facility] [address] [place] [address] Dr. Sveta Velasquez Urea nitrogen/Creatinine [Mass ratio] 25.0 mg/mg Normal [facility] Comment on above: Performed By: #### V ITAD #### [facility] [address] [place] [address] Dr. Sveta Velasquez T4on 11-08-2022 T4 [Mass/Vol] 5.60 ug/dL Normal 4.80-13.90 [facility] Comment on above: Performed By: #### V ITAD #### [facility] [address] [place] [address] Dr. Sveta Velasquez TSHon 11-08-2022 TSH 2.059 uIU/mL Normal 0.358-3.740 [facility] Comment on above: Performed By: #### V ITAD #### [facility] [address], [place] [address] Dr. Sveta Velasquez VITAMIN D 25 OHon 11-08-2022 VIT D 25-OH 59.4 ng/mL Normal [facility] Comment on above: Performed By: #### V ITAD #### [facility] [address] [place], [place] [address] Dr. Sveta Velasquez VIT D RANGES SEE BELOW Normal [facility] Comment on above: Result Comment: <20 ng/mL Vit D deficient 20 - <30 ng/mL Vit D insufficient 30 - 100 ng/mL Vit D sufficient >100 ng/mL Potential Toxicity Performed By: #### V ITAD #### [facility] [address] [address] [address] Sveta Velasquez Basic Metabolic Panel w/ Ref adry to MGon 10-29-2022 Anion gap [Moles/Vol] 10 mmol/L 9 - 17 mmol/L [facility] Calcium [Mass/Vol] 9.2 mg/dL 8.6 - 10. 4 mg/dL [facility] Chloride [Moles/Vol] 99 mmol/L 98 - 10 7 mmol/L [facility] CO2 [Moles/Vol] 29 mmol/L 20 - 31 mmol/L [facility] Creatinine [Mass/Vol] 0.67 mg/dL 0.50 - 0.90 mg/dL [facility] GFR/1.73 sq M.predicted MDRD (S/P/Bld) [Vol rate/Area] - PINF [facility] Comment on above: Effective Aug 12, 2022 These results are not intended for use in patients <18 years of age. eGFR results are calculated without a race factor using the 2020 CKD-EPI equation. Careful clinical correlation is recommended, particularly when comparing to results calculated using previous equations. The CKD-EPI equation is less accurate in patients with extremes of muscle mass, extra-renal metabolism of creatine, excessive creatine ingestion, or following therapy that affects renal tubular secretion. Glucose [Mass/Vol] 167 mg/dL High 70 - 99 mg/dL [facility] Interpretation and review of laboratory results Abnormal [facility] Potassium [Moles/Vol] 3.9 mmol/L 3.7 - 5.3 mmol/L [facility] Sodium [Moles/Vol] 138 mmol/L 135 - 144 mmol/L [facility] Urea nitrogen (BldV) [Mass/Vol] 13 mg/dL 8 - 23 mg/dL [facility] POC Glucose Fingerstickon Glucose [Mass/Vol] 96 mg/dL 65 - 105 mg/dL [facility] Glucose [Mass/Vol] 166 mg/dL High 65 - 105 mg/dL [facility] Interpretation and review of laboratory results Abnormal [facility] Creatinineon 10-28-2022 Creatinine [Mass/Vol] 0.59 mg/dL 0.50 - 0.90 mg/dL [facility] GFR/1.73 sq M.predicted MDRD (S/P/Bld) [Vol rate/Area] - PINF [facility] Comment on above: Effective Aug 12, 2022 These results are not intended for use in patients <18 years of age. eGFR results are calculated without a race factor using the 2020 CKD-EPI equation. Careful clinical correlation is recommended, particularly when comparing to results calculated using previous equations. The CKD-EPI equation is less accurate in patients with extremes of muscle mass, extra-renal metabolism of creatine, excessive creatine ingestion, or following therapy that affects renal tubular secretion. [facility] FLUORO FOR SURGICAL PROCEDUR ESon 10-28-2022 Radiology exam is complete. No Radiologist dictation. Please follow up with ordering provider. [facility] POC Glucose Fingerstickon Glucose [Mass/Vol] 136 mg/dL High 65 - 105 mg/dL [facility] Interpretation and review of laboratory results Abnormal [facility] Glucose [Mass/Vol] 158 mg/dL High 65 - 105 mg/dL [facility] Interpretation and review of laboratory results Abnormal [facility] Glucose [Mass/Vol] 154 mg/dL High 65 - 105 mg/dL [facility] Interpretation and review of laboratory results Abnormal [facility] Glucose [Mass/Vol] 122 mg/dL High 65 - 105 mg/dL [facility] Interpretation and review of laboratory results Abnormal [facility] CT CHEST PULMONARY EMBOLISM W CONTRASTon 09-04-2022 1. No pulmonary emboli. 2. Minimal soft tissue gas and soft tissue stranding felt related to postoperative change from anterior cervical fusion at C5-C6 and C6-C7. No abscess collection is identified. 3. Linear bibasilar airspace disease predominantly within the lower lobes, likely representing atelectasis. No endobronchial material seen to suggest definite aspiration. Pneumonia in the differential however. [facility] EXAMINATION: CTA OF THE CHEST 09/04/2022 4:30 am TECHNIQUE: CTA of the chest was performed after the administration of intravenous contrast. Multiplanar reformatted images are provided for review. MIP images are provided for review. Automated exposure control, iterative reconstruction, and/or weight based adjustment of the mA/kV was utilized to reduce the radiation dose to as low as reasonably achievable. COMPARISON: None. HISTORY: ORDERING SYSTEM PROVIDED HISTORY: hypoxia post surgery TECHNOLOGIST PROVIDED HISTORY: hypoxia post surgery FINDINGS: Pulmonary Arteries: Pulmonary arteries are adequately opacified for evaluation. No evidence of intraluminal filling defect to suggest pulmonary embolism. Main pulmonary artery is normal in caliber. Mediastinum: No thoracic aortic aneurysm is identified. No aortic dissection. Minimal atherosclerotic calcifications are seen. No cardiomegaly. No focal esophageal thickening. No mediastinal lymphadenopathy is identified. Lungs/pleura: Subsegmental dependent linear infiltrates seen within the lower lobes predominantly. No pneumothorax. No spiculated lung mass. Upper Abdomen: No acute inflammatory process seen within the upper abdomen. Soft Tissues/Bones: No axillary or supraclavicular lymphadenopathy. Postoperative changes from prior anterior cervical fusion. There is minimal subcutaneous soft tissue gas seen along the anterior margin of the left sternocleidomastoid muscle and just anterior to the left thyroid lobe. Findings are felt related to anterior approach spinal fusion at the level of C5-C6 and C6-C7. Multilevel degenerative changes seen throughout the thoracic spine. No sternal fracture or acute vertebral body fracture. [facility] Rocío Philippe MD - 09/04/2022 EXAMINATION: CTA OF THE CHEST 09/04/2022 4:30 am TECHNIQUE: CTA of the chest was performed after the administration of intravenous contrast. Multiplanar reformatted images are provided for review. MIP images are provided for review. Automated exposure control, iterative reconstruction, and/or weight based adjustment of the mA/kV was utilized to reduce the radiation dose to as low as reasonably achievable. COMPARISON: None. HISTORY: ORDERING SYSTEM PROVIDED HISTORY: hypoxia post surgery TECHNOLOGIST PROVIDED HISTORY: hypoxia post surgery FINDINGS: Pulmonary Arteries: Pulmonary arteries are adequately opacified for evaluation. No evidence of intraluminal filling defect to suggest pulmonary embolism. Main pulmonary artery is normal in caliber. Mediastinum: No thoracic aortic aneurysm is identified. No aortic dissection. Minimal atherosclerotic calcifications are seen. No cardiomegaly. No focal esophageal thickening. No mediastinal lymphadenopathy is identified. Lungs/pleura: Subsegmental dependent linear infiltrates seen within the lower lobes predominantly. No pneumothorax. No spiculated lung mass. Upper Abdomen: No acute inflammatory process seen within the upper abdomen. Soft Tissues/Bones: No axillary or supraclavicular lymphadenopathy. Postoperative changes from prior anterior cervical fusion. There is minimal subcutaneous soft tissue gas seen along the anterior margin of the left sternocleidomastoid muscle and just anterior to the left thyroid lobe. Findings are felt related to anterior approach spinal fusion at the level of C5-C6 and C6-C7. Multilevel degenerative changes seen throughout the thoracic spine. No sternal fracture or acute vertebral body fracture. IMPRESSION: 1. No pulmonary emboli. 2. Minimal soft tissue gas and soft tissue stranding felt related to postoperative change from anterior cervical fusion at C5-C6 and C6-C7. No abscess collection is identified. 3. Linear bibasilar airspace disease predominantly within the lower lobes, likely representing atelectasis. No endobronchial material seen to suggest definite aspiration. Pneumonia in the differential however. [employer] Work Phone: Radiology Study observation (narrative) [employer] Phone: CT CHEST PULMONARY EMBOLISM W CONTRASTOrdered By: Rocío Philippe on 09-04-2022 [employer] Work Phone: POC Glucose Fingerstickon Glucose [Mass/Vol] 163 mg/dL High 65 - 105 mg/dL [employer] Interpretation and review of laboratory results Abnormal [facility] Glucose [Mass/Vol] 127 mg/dL High 65 - 105 mg/dL [facility] Interpretation and review of laboratory results Abnormal [facility] CBC with Auto Differentialon 09-03-2022 Absolute Eos # [facility] Absolute Immature Granulocyte 0.06 [facility] Absolute Lymph # 1.16 [facility] Absolute [place] # 0.82 [facility] Basophils Absolute [facility] Basophils/100 WBC (Bld) 0 % 0 - 2 % [facility] Eosinophils/100 WBC (Bld) 0 % Low 1 - 4 % [facility] Hematocrit (Bld) [Volume fraction] 43.0 % 36.3 - 47.1 % [facility] Hemoglobin (Bld) [Mass/Vol] 14.0 g/dL 11.9 - 15.1 g/dL [facility] Immature granulocytes/100 WBC (Bld) 1 % High 0 [facility] Interpretation and review of laboratory results Abnormal [facility] Lymphocytes/100 WBC (Bld) 11 % Low 24 - 43 % [facility] MCH (RBC) [Entitic mass] 31.2 pg 25.2 - 33.5 pg [facility] MCHC (RBC) [Mass/Vol] 32.6 g/dL 28.4 - 34.8 g/dL [facility] MCV (RBC) [Entitic vol] 95.8 fL 82.6 - 102.9 fL [facility] Monocytes/100 WBC (Bld) 8 % 3 - 12 % [facility] NRBC Automated 0.0 0.0 per 100 WBC [facility] Platelet distribution width (Bld) [Ratio] 13.1 % 11.8 - 14.4 % [facility] Platelet mean volume (Bld) [Entitic vol] 10.1 fL 8.1 - 13.5 fL [facility] Platelets (Bld) [#/Vol] 181 10*3/uL [facility] RBC (Bld) [#/Vol] 4.49 10*6/uL 3.95 - 5.1 1 m/uL [facility] Segmented neutrophils/100 WBC (Bld) 80 % High 36 - 65 % [facility] Segs Absolute 8.62 High [facility] WBC (Bld) [#/Vol] 10.7 10*3/uL [facility] Microscopic Urinalysison Epithelial Cells UA 0 TO 2 [facility] RBC, UA None [facility] Comment on above: Reference range defi braydon for non-centrifuged specimen. WBC, UA 2 TO 5 [facility] POC Glucose Fingerstickon Glucose [Mass/Vol] 163 mg/dL High 65 - 105 mg/dL [facility] Interpretation and review of laboratory results Abnormal [facility] Glucose [Mass/Vol] 189 mg/dL High 65 - 105 mg/dL [facility] Interpretation and review of laboratory results Abnormal [facility] Glucose [Mass/Vol] 122 mg/dL High 65 - 105 mg/dL [facility] Interpretation and review of laboratory results Abnormal [facility] Glucose [Mass/Vol] 140 mg/dL High 65 - 105 mg/dL [facility] Interpretation and review of laboratory results Abnormal [facility] SPECIMEN REJECTIONon 022 Ordered Test CDP [facility] Reason for Rejection Unable to perform testing: Specimen hemolyzed. [facility] Specimen source Nom (Unsp spec) .BLOOD [facility] Urinalysis with Reflex to Cu ltureon 09-03-2022 Bilirubin Urine Negative NEGATIVE [facility] Color, UA Yellow Yellow [facility] Glucose, Ur Negative NEGATIVE [facility] Interpretation and review of laboratory results Abnormal [facility] Ketones Ql (U) Negative NEGATIVE [facility] Leukocyte esterase Test strip Ql (U) TRACE Abnormal NEGATIVE [facility] Nitrite, Urine Negative NEGATIVE [facility] pH, UA 7.5 5.0 - 8.0 [facility] Protein, UA Negative NEGATIVE [facility] Specific [place], UA 1.015 1.005 - 1.030 [facility] Turbidity UA Clear Clear [facility] Urine Hgb Negative NEGATIVE [facility] Urobilinogen, Urine Normal Normal [facility] XR CHEST PORTABLEon 09-03-20 22 Top normal pulmonary vascularity without overt edema. [facility] EXAMINATION: ONE XRAY VIEW OF THE CHEST 09/03/2022 10:38 am COMPARISON: None. HISTORY: ORDERING SYSTEM PROVIDED HISTORY: hypoxia TECHNOLOGIST PROVIDED HISTORY: hypoxia FINDINGS: AP portable view of the chest time stamped at 1033 hours is submitted. Heart size is normal. No vascular congestion, focal consolidation, effusion, or pneumothorax is noted. Osseous and mediastinal structures are age-appropriate. Densities are present over the right humeral head likely postsurgical. Spondylosis is present in the dorsal spine. Aorta is ectatic and calcified. Hardware placement base of neck is noted. Pulmonary vascularity top normal. [facility] Kristin Lorenzo MD - 09/03/2022 EXAMINATION: ONE XRAY VIEW OF THE CHEST 09/03/2022 10:38 am COMPARISON: None. HISTORY: ORDERING SYSTEM PROVIDED HISTORY: hypoxia TECHNOLOGIST PROVIDED HISTORY: hypoxia FINDINGS: AP portable view of the chest time stamped at 1033 hours is submitted. Heart size is normal. No vascular congestion, focal consolidation, effusion, or pneumothorax is noted. Osseous and mediastinal structures are age-appropriate. Densities are present over the right humeral head likely postsurgical. Spondylosis is present in the dorsal spine. Aorta is ectatic and calcified. Hardware placement base of neck is noted. Pulmonary vascularity top normal. IMPRESSION: Top normal pulmonary vascularity without overt edema. [facility] Work Phone: Radiology Study observation (narrative) [facility] Work Phone: XR CHEST PORTABLEOrdered By: Kristin Lorenzo on 09-03-2022 [facility] Work [facility]: POC Glucose Fingerstickon Glucose [Mass/Vol] 132 mg/dL High 65 - 105 mg/dL [facility] Interpretation and review of laboratory results Abnormal [facility] XR CERVICAL SPINE 1 VWon Radiology exam is complete. No Radiologist dictation. Please follow up with ordering provider. [facility] Radiology exam is complete. No Radiologist dictation. Please follow up with ordering provider. [facility] Radiology exam is complete. No Radiologist dictation. Please follow up with ordering provider. [facility] EKG 12 LeadOrdered By: Karina Lee on 08-29-2022 Atrial Rate 81 BPM [employer] Work Phone: P Garrison 45 degrees [employer] Work Phone: P-R Interval 178 ms [employer] Work Phone: Q-T Interval 376 ms [employer] Work Phone: QRS Duration 72 ms [employer] Work Phone: QTc Calculation (Bazett) 436 ms [employer] Work Phone: R Garrison 39 degrees [employer] Work Phone: T Garrison 41 degrees [employer] Work Phone: Ventricular Rate 81 BPM [facility] Work Phone: [employer] Work Phone: EKG 12 Leadon 08-29-2022 Normal sinus rhythm Normal ECG When compared with ECG of 29-JAN-2021 14:31, No significant change was found [facility] STKarina White MD - 08/29/2022 Normal sinus rhythm Normal ECG When compared with ECG of 29-JAN-2021 14:31, No significant change was found [employer] Work Phone: BUN & Creatinineon 2 Creatinine [Mass/Vol] 0.61 mg/dL 0.50 - 0.90 mg/dL [employer] GFR/1.73 sq M.predicted MDRD (S/P/Bld) [Vol rate/Area] - PINF [facility] Comment on above: Effective Aug 12, 2022 These results are not intended for use in patients <18 years of age. eGFR results are calculated without a race factor using the 2020 CKD-EPI equation. Careful clinical correlation is recommended, particularly when comparing to results calculated using previous equations. The CKD-EPI equation is less accurate in patients with extremes of muscle mass, extra-renal metabolism of creatine, excessive creatine ingestion, or following therapy that affects renal tubular secretion. Interpretation and review of laboratory results Abnormal [facility] Urea nitrogen (BldV) [Mass/Vol] 24 mg/dL High 8 - 23 mg/dL [facility] CBCon 08-28-2022 Hematocrit (Bld) [Volume fraction] 43.3 % 36.3 - 47.1 % [facility] Hemoglobin (Bld) [Mass/Vol] 14.1 g/dL 11.9 - 15.1 g/dL [facility] MCH (RBC) [Entitic mass] 31.1 pg 25.2 - 33.5 pg [facility] MCHC (RBC) [Mass/Vol] 32.6 g/dL 28.4 - 34.8 g/dL [facility] MCV (RBC) [Entitic vol] 95.4 fL 82.6 - 102.9 fL [facility] NRBC Automated 0.0 0.0 per 100 WBC [facility] Platelet distribution width (Bld) [Ratio] 12.9 % 11.8 - 14.4 % [facility] Platelet mean volume (Bld) [Entitic vol] 10.0 fL 8.1 - 13.5 fL [facility] Platelets (Bld) [#/Vol] 182 10*3/uL [facility] RBC (Bld) [#/Vol] 4.54 10*6/uL 3.95 - 5.1 1 m/uL [facility] WBC (Bld) [#/Vol] 6.6 10*3/uL [facility] Electrolyte Panelon 08-28-20 Anion gap [Moles/Vol] 11 mmol/L 9 - 17 mmol/L [facility] Chloride [Moles/Vol] 105 mmol/L 98 - 10 7 mmol/L [facility] CO2 [Moles/Vol] 28 mmol/L 20 - 31 mmol/L [facility] Potassium [Moles/Vol] 4.8 mmol/L 3.7 - 5.3 mmol/L [facility] Sodium [Moles/Vol] 144 mmol/L 135 - 144 mmol/L [facility] Glucose, Randomon 08-28-2022 Glucose [Mass/Vol] 84 mg/dL 70 - 99 mg/dL [facility] No Panel Informationon 08-28 [facility] GLYCOHEMOGLOBIN A1Con 2021 ADA RECOMMENDATION SEE BELOW Normal [facility] Comment on above: Result Comment: ADA RECOMMENDED LIMIT 4.0 - 6.0 ADA THERAPEUTIC TARGET < 7.0 ACTION SUGGESTED > 7.0 Performed By: #### A 1C #### [facility] [address] [address] [address] Sveta Velasquez Glucose [Mass/Vol] 280 mg/dL Normal [facility] Comment on above: Performed By: #### A 1C #### [facility] [address] [address] [address] Sveta Velasquez HbA1c (Bld) [Mass fraction] 11.4 % Critically high 4.5-6.2 [facility] Comment on above: Performed By: #### A 1C #### [facility] [address] [address] [address] Sveta Velasquez Laboratory - Chemistry and C hemistry - challengeon 06-17-2022 Glucose [Mass/Vol] 306 mg/dL High 65 - 105 mg/dL [facility] Work Phone: Microscopic Urinalysison Casts UA 2 TO 5 HYALINE Reference range defined for non-centrifuged specimen. [facility] Epithelial Cells UA 2 TO 5 [facility] RBC, UA 10 TO 20 [facility] Comment on above: Reference range defi braydon for non-centrifuged specimen. WBC, UA 20 TO 50 [facility] No Panel Informationon 06-17 [facility] POC Glucose Fingerstickon Interpretation and review of laboratory results Abnormal [facility] POCT glucoseon 06-17-2022 Interpretation and review of laboratory results Normal [facility] Work Phone: QC OK? yes [facility] Work Phone: Urinalysis with Reflex to Cu ltureon 06-17-2022 Bilirubin Urine Negative NEGATIVE [facility] Color, UA Dark Yellow Abnormal Yellow [facility] Glucose, Ur 2+ Abnormal NEGATIVE [facility] Interpretation and review of laboratory results Abnormal [facility] Ketones Ql (U) Negative NEGATIVE [facility] Leukocyte esterase Test strip Ql (U) SMALL Abnormal NEGATIVE [facility] Nitrite, Urine Negative NEGATIVE [facility] pH, UA 6.5 5 - 8 [facility] Protein, UA Negative NEGATIVE [facility] Specific [place], UA 1.032 High 1.005 - 1.03 [facility] Turbidity UA Clear Clear [facility] Urine Hgb Negative NEGATIVE [facility] Urobilinogen, Urine Normal Normal [facility] Vaginitis DNA Probeon 2021 ALON SPECIES, DNA PROBE Positive Abnormal NEGATIVE [facility] Comment on above: for Alon sp. Method of testing is a DNA probe intended for detection and identification of Alon species, Gardnerella vaginalis, and Trichomonas vaginalis nucleic acid in vaginal fluid specimens from patients with symptoms of vaginitis/vaginosis. GARDNERELLA VAGINALIS, DNA PROBE Negative NEGATIVE [facility] Comment on above: for Gardnerella vagi nalis Interpretation and review of laboratory results Abnormal [facility] Source .VAGINAL SWAB [facility] Trichomonas Vaginalis DNA Negative NEGATIVE [facility] Comment on above: for Trichomonas Vagi nalis [facility] CREATININEon 05-23-2022 Creatinine [Mass/Vol] 0.65 mg/dL Normal 0.55-1.[address] [facility] Comment on above: Performed By: #### V ITAD #### [facility] [address], [place] [address] Dr. Sveta Velasquez EGFR-AF BELIZEAN >60 Normal >=60 [facility] Comment on above: Performed By: #### V ITAD #### [facility] [address], [place] [address] Dr. Sveta Velasquez EGFR-NON AF BELIZEAN >60 Normal >=[address] [facility] Comment on above: Performed By: #### V ITAD #### [facility] [address], [place] [address] Dr. Sveta Velasquez MRI BRAIN WO W CONon 022 MRI BRAIN WO W CON EXAMINATION: MRI BRAIN WO W CON HISTORY: Peripheral vertigo COMPARISON: 04/13/2022 TECHNIQUE: A variety of imaging planes and parameters were utilized for visualization of suspected pathology. Images were performed with 15 ml Dotarem contrast. FINDINGS: CEREBRUM: Fluid signal in the right temporal lobe consistent with prior infarct/lobectomy. Mild white matter signal abnormality with no restricted diffusion to suggest an acute infarct. Normal candelario-white differentiation. CEREBELLUM: No edema, hemorrhage, mass, acute infarction, or inappropriate atrophy. BRAINSTEM: No edema, hemorrhage, mass, acute infarction, or inappropriate atrophy. CSF SPACES: Ventricles, cisterns, and sulci are appropriate for age. No hydrocephalus, subarachnoid hemorrhage, or mass. SKULL: No mass or other significant visible lesion. SINUSES: Limited views demonstrate no significant mucosal thickening or fluid. ORBITS: Limited views are unremarkable. OTHER: 4.6 mm area of postcontrast enhancement with no associated additional signal abnormality in the right thalamus/posterior limb of the internal capsule is best seen on axial postcontrast image 13 IMPRESSION: 4.6 mm focus of postcontrast enhancement right thalamus/posterior limb of the internal capsule, nonspecific. The differential diagnosis would include a vascular lesion versus malignancy. Consider short interval follow-up to document stability Remote right temporal lobectomy Scattered white matter disease, chronic small vessel ischemic changes are favored Electronically authenticated by: ROCÍO REYES Date: 2022-05-23 10:[address] [facility] MRI CSPINE WO CONon 05-23-20 22 MRI CSPINE WO CON EXAMINATION: MRI CSPINE WO CON HISTORY: Dizziness and giddiness COMPARISON: 01/30/2018 TECHNIQUE: A variety of imaging planes and parameters were utilized for visualization of suspected pathology. FINDINGS: CRANIOCERVICAL AREA: Normal foramen magnum with no Chiari malformation. PARASPINAL AREA: Normal with no visible mass. BONES: Normal alignment with no acute fracture or spondylolisthesis. Moderate diffuse degenerative anterior and posterior spondylosis most significant C5-T1 CORD: Significant deformation of the cord at C3-C4. Mild anterior deformation at C5-C6 and C6-C7. DISC LEVELS: C2-C3: Early degenerative disc disease is present without focal protrusion or neural impingement. C3-C4: Disc space narrowing and disc desiccation. Moderate diffuse disc/osteophyte complex and facet osteoarthropathy. Severe narrowing of the central canal down to 4.2 mm. Severe right and no left foraminal stenosis C4-C5: Mild disc narrowing and desiccation. Narrowing of the central canal to 6.7 mm in anterior posterior dimension. Moderate bilateral foraminal stenosis C5-C6: Disc collapse with endplate sclerosis. Moderate diffuse disc/osteophyte complex. Narrowing of the central canal to 6 mm in anterior posterior dimension. Moderate to severe bilateral foraminal stenosis C6-C7: Disc collapse with endplate sclerosis. Moderate diffuse disc/osteophyte complex. Narrowing of the central canal to 6 mm in anterior posterior dimension. Moderate bilateral foraminal stenosis C7-T1:. Disc space narrowing and disc desiccation. Mild to moderate disc/osteophyte complex. No central or foraminal stenosis IMPRESSION: Diffuse moderate to severe degenerative changes. Central and foraminal stenosis at multiple levels most significant at C4-C5 where severe central canal stenosis is observed causing significant deformation of the cervical spinal cord. Surgical consultation is recommended Electronically authenticated by: ROCÍO REYES Date: 2022-05-23 09:[address] [facility] CBC AUTO DIFFon 05-12-2022 BASO # 0.0 103/ul Normal 0.0-0.1 [facility] Comment on above: Performed By: #### M ISC #### [facility] [address] [address] [address] Sveta Velasquez Basophils/100 WBC (Bld) 0.4 % Normal 0.2-2.0 [facility] Comment on above: Performed By: #### M ISC #### [facility] [address] [address] [address] Sveta Velasquez EO # 0.1 103/ul Normal 0.0-0.[address] [facility] Comment on above: Performed By: #### M ISC #### [facility] [address] [place] [address] Dr. Sveta Velasquez Eosinophils/100 WBC (Bld) 1.0 % Normal 0.9-7.0 [facility] Comment on above: Performed By: #### M ISC #### [facility] [address] [place] [address] Dr. Sveta Velasquez Erythrocyte distribution width (RBC) [Ratio] 12.8 % Normal 11.0-15.0 [facility] Comment on above: Performed By: #### M ISC #### [facility] [address] [place] [address] Dr. Sveta Velasquez Hematocrit (Bld) [Volume fraction] 43.6 % Normal 36.0-48.0 [facility] Comment on above: Performed By: #### M ISC #### [facility] [address] [place] [address] Dr. Sveta Velasquez Hemoglobin (Bld) [Mass/Vol] 15.9 g/dL Normal 12.0-16.0 [facility] Comment on above: Performed By: #### M ISC #### [facility] [address] [place] [address] Dr. Sveta Velasquez IG # 0.04 10e3/ul Critically high 0.00-0.03 [facility] Comment on above: Performed By: #### M ISC #### [facility] [address] [place] [address] Dr. Sveta Velasquez IG % 0.4 % Normal 0.0-0.[address] [facility] Comment on above: Performed By: #### M ISC #### [facility] [address] [place] [address] Dr. Sveta Velasquez LYMPH # 2.5 103/ul Normal 1.2-3.[address] [facility] Comment on above: Performed By: #### M ISC #### [facility] [address] [place] [address] Dr. Sveta Velasquez Lymphocytes/100 WBC (Bld) 26.6 % Normal 20.5-60.0 [facility] Comment on above: Performed By: #### M ISC #### [facility] [address] [place] [address] Dr. Sveta Velasquez MANUAL DIFF REQ NO Normal [facility] Comment on above: Performed By: #### M ISC #### [facility] [address] [place] [address] Dr. Sveta Velasquez MCH (RBC) [Entitic mass] 33.0 pg Normal 26.7-34.0 [facility] Comment on above: Performed By: #### M ISC #### [facility] [address] [place] [address] Dr. Sveta Velasquez MCHC (RBC) [Mass/Vol] 36.5 g/dL Critically high 29.9-35.2 [facility] Comment on above: Performed By: #### M ISC #### [facility] [address] [place] [address] Dr. Sveta Velasquez MCV (RBC) [Entitic vol] 90.5 fL Normal 81.0-99.0 [facility] Comment on above: Performed By: #### M ISC #### [facility] [address] [place] [address] Dr. Sveta Velasquez MONO # 0.5 103/ul Normal 0.3-0.8 [facility] Comment on above: Performed By: #### M ISC #### [facility] [address] [place] [address] Dr. Sveta Velasquez Monocytes/100 WBC (Bld) 5.1 % Normal 1.7-12.0 [facility] Comment on above: Performed By: #### M ISC #### [facility] [address] [place] [address] Dr. Sveta Velasquez NEUT # 6.2 103/ul Normal 1.4-6.5 [facility] Comment on above: Performed By: #### M ISC #### [facility] [address] [place] [address] Dr. Sveta Velasquez Neutrophils/100 WBC (Bld) 66.5 % Normal 43.0-75.0 [facility] Comment on above: Performed By: #### M ISC #### [facility] [address] [place] [address] Dr. Sveta Velasquez Platelet mean volume (Bld) [Entitic vol] 10.3 fL Normal 9.5-13.5 [facility] Comment on above: Performed By: #### M ISC #### [facility] [address] [place] [address] Dr. Sveta Velasquez PLT 214 103/ul Normal 150-450 [facility] Comment on above: Performed By: #### M ISC #### [facility] [address] [place] [address] Dr. Sveta Velasquez RBC 4.82 106/ul Normal 4.20-5.40 [facility] Comment on above: Performed By: #### M ISC #### [facility] [address] [place] [address] Dr. Sveta Velasquez WBC 9.4 103/ul Normal 4.0-11.0 [facility] Comment on above: Performed By: #### M ISC #### [facility] [address] [place] [address] Dr. Sveta Velasquez CRPon 05-12-2022 CRP [Mass/Vol] mg/L Normal <=1.0 [facility] Comment on above: Performed By: #### C RP #### [facility] [address] [place] [address] Dr. Sveta Velasquez XR CHEST 1 Von 05-12-2022 XR CHEST 1 V EXAMINATION: XR CHEST 1 V HISTORY: Chest pain COMPARISON: Chest x-ray 08/14/2021 TECHNIQUE: Portable chest FINDINGS: The lung parenchyma is free of consolidation or infiltrate. No pneumothorax or pleural effusion. The cardiac, mediastinal and hilar contours are normal. The visualized osseous structures exhibit no gross abnormality. IMPRESSION: No acute cardiopulmonary abnormality. Electronically authenticated by: ROCÍO SHELLEY Date: 2022-05-12 17:18 Normal [facility] US CAROTID ART BILon 05-02-2 022 US CAROTID ART PAU EXAMINATION: US CAROTID ART PAU HISTORY: Peripheral vertigo COMPARISON: No relevant comparison available. TECHNIQUE: Duplex Doppler ultrasound analysis of carotid and vertebral arteries. . Bilateral carotid arterial duplex examination was performed using B-mode, color flow and spectral analysis. Carotid stenosis is reported according to validated velocity parameters, similar to NASCET criteria. FINDINGS: RIGHT CAROTID ARTERY: Mild smooth plaque within the bulb and proximal ICA; no significant stenosis. RIGHT VERTEBRAL: Antegrade flow. Subclavian: PSV: 126.0 cm/s EDV: 0.0 cm/s CCA: Prox: PSV: 79.8 cm/s EDV: 12.7 cm/s Mid: PSV: 92.7 cm/s EDV: 20.2 cm/s Distal: PSV: 87.5 cm/s EDV: 20.2 cm/s BULB: PSV: 64.6 cm/s EDV: 12.8 cm/s ICA: Prox: PSV: 47.6 cm/s EDV: 17.1 cm/s Mid: PSV: 55.6 cm/s EDV: 20.4 cm/s Distal: PSV: 92.7 cm/s EDV: 30.5 cm/s ECA: PSV: 99.5 cm/s EDV: 10.7 cm/s VERTEBRAL: PSV: 41.0 cm/s EDV: 11.1 cm/s ICA/CCA ratio: PSV: 1.0 EDV: 1.5 LEFT CAROTID ARTERY: Mild smooth plaque within the bulb and proximal ICA; no significant stenosis. LEFT VERTEBRAL: Antegrade flow. Subclavian: PSV: 150.2 cm/s EDV: 0.0 cm/s CCA: Prox: PSV: 126.9 cm/s EDV: 22.3 cm/s Mid: PSV: 105.6 cm/s EDV: 17.0 cm/s Distal: PSV: 97.8 cm/s EDV: 18.9 cm/s BULB: PSV: 58.4 cm/s EDV: 12.3 cm/s ICA: Prox: PSV: 42.4 cm/s EDV: 12.7 cm/s Mid: PSV: 54.6 cm/s EDV: 19.7 cm/s Distal: PSV: 56.4 cm/s EDV: 17.6 cm/s ECA: PSV: 152.4 cm/s EDV: 8.4 cm/s VERTEBRAL: PSV: 55.1 cm/s EDV: 9.8 cm/s ICA/CCA ratio: PSV: 0.6 EDV: 0.7 IMPRESSION: 1. 0-49% flow stenosis within the right left carotid arteries. 2. Mild atherosclerotic disease. Electronically authenticated by: LA GREGGMEGAN Date: 2022-05-02 11:[address] [facility] MRI Foot w/o + w/ Righton MRI Foot w/o + w/ Right CLINICAL HISTORY: Pain in the third, fourth, and fifth toes. Burning sensation in the third interspace. History of neuroma surgery COMPARISON: Radiographs 04/11/2022 TECHNIQUE: Multiplanar multisequence MRI of the right foot was performed without and with contrast. FINDINGS: Bone marrow signal is within normal limits. No acute fracture or evidence of stress reaction. Flexor and extensor tendons appear intact. Lisfranc ligament is intact. Musculature of the foot appears normal. There is low level increased signal interposed between the head of the third and fourth metatarsal without associated soft tissue mass. No enhancing soft tissue mass or fluid collection. IMPRESSION: No acute osseous abnormality. Abnormal signal interposed between the head of the third and fourth metatarsal may represent an area of incomplete fat suppression or mild nonspecific edema. No soft tissue mass. Report reported and signed by Rashel Guerrero on 04/25/2022 1247 Normal [facility] Albumin [Mass/volume] in Ser um or PlasmaOrdered By: Marito Villalobos on 04-13-2022 Albumin [Mass/Vol] 4.4 g/dL 3.2-5.[address] [facility] C-Reactive Proteinon 022 C-Reactive Protein 0.6 mg/dL Normal 0.0-1.[address] [facility] Comment on above: Result Comment: PERF ORMED BY: [place] [id number] PATHOLOGIST MEDICATION NURSE JOSH MESSINA M.D. Performed By: #### C KMB, HS TROP, CK, CMP, CRP, PHENY #### [address] CBC AUTO DIFFon 04-13-2022 BASO # 0.1 103/ul Normal 0.0-0.1 [facility] Comment on above: Performed By: #### M ISC #### [facility] [address] [place] [address] Dr. Sveta Velasquez Basophils/100 WBC (Bld) 0.6 % Normal 0.2-2.0 [facility] Comment on above: Performed By: #### M ISC #### [facility] [address] [place] [address] Dr. Sveta Velasquez EO # 0.2 103/ul Normal 0.0-0.7 [facility] Comment on above: Performed By: #### M ISC #### [facility] [address] [place] [address] Dr. Sveta Velasquez Eosinophils/100 WBC (Bld) 1.9 % Normal 0.9-7.0 [facility] Comment on above: Performed By: #### M ISC #### [facility] [address] [place] [address] Dr. Sveta Velasquez Erythrocyte distribution width (RBC) [Ratio] 12.7 % Normal 11.0-15.0 [facility] Comment on above: Performed By: #### M ISC #### [facility] [address] [place] [address] Dr. Sveta Velasquez Hematocrit (Bld) [Volume fraction] 45.0 % Normal 36.0-48.0 [facility] Comment on above: Performed By: #### M ISC #### [facility] [address] [place] [address] Dr. Sveta Velasquez Hemoglobin (Bld) [Mass/Vol] 16.9 g/dL Critically high 12.0-16.0 [facility] Comment on above: Performed By: #### M ISC #### [facility] [address] [place] [address] Dr. Sveta Velasquez IG # 0.03 10e3/ul Normal 0.00-0.03 [facility] Comment on above: Performed By: #### M ISC #### [facility] [address] [place] [address] Dr. Sveta Velasquez IG % 0.3 % Normal 0.0-0.5 [facility] Comment on above: Performed By: #### M ISC #### [facility] [address] [place] [address] Dr. Sveta Velasquez LYMPH # 3.5 103/ul Normal 1.2-3.8 [facility] Comment on above: Performed By: #### M ISC #### [facility] [address] [place] [address] Dr. Sveta Velasquez Lymphocytes/100 WBC (Bld) 39.9 % Normal 20.5-60.0 [facility] Comment on above: Performed By: #### M ISC #### [facility] [address] [place] [address] Dr. Sveta Velasquez MANUAL DIFF REQ NO Normal [facility] Comment on above: Performed By: #### M ISC #### [facility] [address] [place] [address] Dr. Sveta Velasquez MCH (RBC) [Entitic mass] 33.7 pg Normal 26.7-34.0 [facility] Comment on above: Performed By: #### M ISC #### [facility] [address] [place] [address] Dr. Sveta Velasquez MCHC (RBC) [Mass/Vol] 37.5 g/dL Critically high 29.9-35.2 [facility] Comment on above: Performed By: #### M ISC #### [facility] [address] [place] [address] Dr. Sveta Velasquez MCV (RBC) [Entitic vol] 89.6 fL Normal 81.0-99.0 [facility] Comment on above: Performed By: #### M ISC #### [facility] [address] [place] [address] Dr. Sveta Velasquez MONO # 0.6 103/ul Normal 0.3-0.8 [facility] Comment on above: Performed By: #### M ISC #### [facility] [address] [place] [address] Dr. Sveta Velasquez Monocytes/100 WBC (Bld) 6.3 % Normal 1.7-12.0 [facility] Comment on above: Performed By: #### M ISC #### [facility] [address] [place] [address] Dr. Sveta Velasquez NEUT # 4.5 103/ul Normal 1.4-6.5 [facility] Comment on above: Performed By: #### M ISC #### [facility] [address] [place] [address] Dr. Sveta Velasquez Neutrophils/100 WBC (Bld) 51.0 % Normal 43.0-75.0 [facility] Comment on above: Performed By: #### M ISC #### [facility] [address] [place] [address] Dr. Sveta Velasquez Platelet mean volume (Bld) [Entitic vol] 10.2 fL Normal 9.5-13.5 [facility] Comment on above: Performed By: #### M ISC #### [facility] [address] [place] [address] Dr. Sveta Velasquez PLT 211 103/ul Normal 150-450 [facility] Comment on above: Performed By: #### M ISC #### [facility] [address] [place] [address] Dr. Sveta Velasquez RBC 5.02 106/ul Normal 4.20-5.40 [facility] Comment on above: Performed By: #### M ISC #### [facility] [address] [place] [address] Dr. Sveta Velasquez WBC 8.9 103/ul Normal 4.0-11.[address] [facility] Comment on above: Performed By: #### M ISC #### [facility] [address] [place] [address] HEAD WO CONon 04-13-2022 CT HEAD WO CON INDICATION: 61 years old; Female. Vertigo. Dizziness. Hypertension. History of prior surgery for seizure. TECHNIQUE: CT Head (ax/cor/sag reformats). Ionizing radiation dose reduced via iterative reconstruction/FBP blend and body size kV/mA adjustment. Comparison: Head CT dated 08/31/2013. FINDINGS: POSTOPERATIVE CHANGES: Patient is status post right temporal craniotomy with temporal lobectomy. BRAIN PARENCHYMA: Old lacunar infarction thalamus on the right. No intraparenchymal or extra-axial hemorrhage. No mass effect. No midline shift or herniation. Normal candelario/white differentiation. VENTRICLES/EXTRA-AXI AL SPACES: Normal in size for patient's age. Asymmetric mild widening of the lateral ventricle on the right associated with volume loss secondary to temporal lobectomy. SINUSES/MASTOIDS: Visualized sinuses are clear. Mastoid air cells are clear. MSK: Right-sided temporal craniotomy. Hyperostosis frontalis. OTHER: No hyperdense intraluminal thrombus. Vascular calcifications are seen. IMPRESSION: 1. Postoperative changes in the right consistent with prior temporal lobectomy. 2. Old lacunar infarction in the right thalamus. 3. No acute intracranial abnormality. No hemorrhage or mass effect. 4. Mastoids and middle ears are clear. 5. Vascular calcification. Electronically authenticated by: LUZ HEREDIA Date: 2022-04-13 01:[address] [facility] Metabolic P[facility] 04-13-2022 Albumin [Mass/Vol] 4.4 g/dL Normal 3.2-5.[address] [facility] Comment on above: Performed By: #### C KMB, HS TROP, CK, CMP, CRP, PHENY #### [facility] [address] Albumin/Globulin [Mass ratio] 1.4 {ratio} Normal [facility] Comment on above: Performed By: #### C KMB, HS TROP, CK, CMP, CRP, PHENY #### [facility] [address] ALP [Catalytic activity/Vol] 97 U/L High 32-92 [facility] Comment on above: Performed By: #### C KMB, HS TROP, CK, CMP, CRP, PHENY #### [facility] [address] ALT [Catalytic activity/Vol] 26 U/L Normal 10-60 [facility] Comment on above: Performed By: #### C KMB, HS TROP, CK, CMP, CRP, PHENY #### [facility] [address] [place] [address] AST [Catalytic activity/Vol] 29 U/L Normal 10-42 [facility] Comment on above: Performed By: #### C KMB, HS TROP, CK, CMP, CRP, PHENY #### [facility] [address] Bilirubin [Mass/Vol] 0.7 mg/dL Normal 0.3-1.2 [facility] Comment on above: Performed By: #### C KMB, HS TROP, CK, CMP, CRP, PHENY #### [facility] [address] Calcium [Mass/Vol] 10.3 mg/dL High 8.2-10.[address] [facility] Comment on above: Performed By: #### C KMB, HS TROP, CK, CMP, CRP, PHENY #### [address] Chloride [Moles/Vol] 92 mmol/L Low 95-114 [facility] Comment on above: Performed By: #### C KMB, HS TROP, CK, CMP, CRP, PHENY #### [address] CO2 [Moles/Vol] 21.3 mmol/L Low 22.0-30.0 [facility] Comment on above: Performed By: #### C KMB, HS TROP, CK, CMP, CRP, PHENY #### [address] Creatinine [Mass/Vol] 0.72 mg/dL Normal 0.44-1.03 [facility] Comment on above: Performed By: #### C KMB, HS TROP, CK, CMP, CRP, PHENY #### [address] Estimated GFR ( Katerina > 60 Normal [facility] Comment on above: Result Comment: GFR estimated reference range: According to KDOQI guidelines, <60 ml/min/1.73m2 is sufficient to diagnose a patient with chronic kidney disease. Performed By: #### C KMB, HS TROP, CK, CMP, CRP, PHENY #### [facility] [address] Estimated GFR (Non- Am > 60 Normal [facility] Comment on above: Performed By: #### C KMB, HS TROP, CK, CMP, CRP, PHENY #### [facility] [address] Globulin (S) [Mass/Vol] 3.1 g/dL [facility] Comment on above: Performed By: #### C KMB, HS TROP, CK, CMP, CRP, PHENY #### [facility] [address] Glucose [Mass/Vol] 407 mg/dL High 70-[address] [facility] Comment on above: Result Comment: [facility] Glucose Reference Range is dependent on time and content of last meal. Glucose of more than 200 mg/dL in a nonstressed, ambulatory subject supports the diagnosis of Diabetes Mellitus. ADA recommended reference range Performed By: #### C KMB, HS TROP, CK, CMP, CRP, PHENY #### [facility] [address] Potassium [Moles/Vol] 4.4 mmol/L Normal 3.5-5.1 [facility] Comment on above: Performed By: #### C KMB, HS TROP, CK, CMP, CRP, PHENY #### [facility] [address] Protein [Mass/Vol] 7.5 g/dL Normal 6.1-7.[address] [facility] Comment on above: Performed By: #### C KMB, HS TROP, CK, CMP, CRP, PHENY #### [facility] [address] Sodium [Moles/Vol] 134 mmol/L Low 136-[address] [facility] Comment on above: Performed By: #### C KMB, HS TROP, CK, CMP, CRP, PHENY #### [facility] [address] [place] [address] [place] Urea nitrogen [Mass/Vol] 15 mg/dL Normal 08-02 [facility] Comment on above: Performed By: #### C KMB, HS TROP, CK, CMP, CRP, PHENY #### [facility] [address] [place] [address] [place] Creatine Kinaseon 04-13-2022 CK [Catalytic activity/Vol] 55 U/L Normal [facility] Comment on above: Performed By: #### C K, CKMB, HS TROP #### [facility] [address] CK [Catalytic activity/Vol] 23 U/L Normal [facility] Comment on above: Performed By: #### C K, HS TROP, CKMB #### [facility] [address] CK [Catalytic activity/Vol] 81 U/L Normal [facility] Comment on above: Performed By: #### C KMB, HS TROP, CK, CMP, CRP, PHENY #### [place] [address] [place] Creatine kinase [Enzymatic a ctivity/volume] in Serum or PlasmaOrdered By: Marito Villalobos on 04-13-2022 CK [Catalytic activity/Vol] 55 U/L [facility] Creatinine Kinase MBon 04-13 CK.MB [Mass/Vol] 1.1 ng/mL Normal 0.6-6.3 [facility] Comment on above: Performed By: #### C K, CKMB, HS TROP #### [facility] [address] [place] [address] [place] CKMB Relative Index 2.0 % Normal 0.00-2.50 [facility] Comment on above: Performed By: #### C K, CKMB, HS TROP #### [facility] [address] [place] [address] [place] CK.MB [Mass/Vol] 1.1 ng/mL Normal 0.6-6.3 [facility] Comment on above: Performed By: #### C KMB, HS TROP, CK, CMP, CRP, PHENY #### [facility] [address] CKMB Relative Index 4.7 % High 0.00-2.50 [facility] Comment on above: Performed By: #### C KMB, HS TROP, CK, CMP, CRP, PHENY #### [facility] [address] CK.MB [Mass/Vol] 1.3 ng/mL Normal 0.6-6.3 [facility] Comment on above: Performed By: #### C KMB, HS TROP, CK, CMP, CRP, PHENY #### [facility] [address] CKMB Relative Index 1.6 % Normal 0.00-2.50 [facility] Comment on above: Performed By: #### C KMB, HS TROP, CK, CMP, CRP, PHENY #### [facility] [address] Creatinine and Glomerular fi ltration rate.predicted panel (S/P/Bld)Ordered By: Marito Villalobos on 04-13-2022 Creatinine [Mass/Vol] 0.72 mg/dL 0.44-1.03 [facility] Estimated glomerular filtrat ion rate (GFR) non- AmericanOrdered By: Marito Villalobos on 04-13-2022 GFR/1.73 sq M.predicted among non-blacks MDRD (S/P/Bld) [Vol rate/Area] > 60 mL/Min [facility] Globulin Calc (S) [Mass/Vol] Ordered By: Marito Villalobos on 04-13-2022 Globulin (S) [Mass/Vol] 3.1 g/dL [facility] LAB TESTINGon 04-13-2022 RECV HEADER SEE SCANNED REPORT IN HPF [facility] Comment on above: Performed By: #### M ISC #### [facility] [address] [address] [address] Sveta Velasquez REV FROM REF LAB 04/13/2022 Normal [facility] Comment on above: Performed By: #### M ISC #### [facility] [address] [place] [address] Dr. Sveta Velasquez SENT TO REF LAB 04/13/2022 Normal [facility] Comment on above: Result Comment: TO [facility] Performed By: #### M ISC #### [facility] [address] [place] [address] Dr. Sveta GRAY HEADER SEE SCANNED REPORT IN HPF Normal [facility] Comment on above: Performed By: #### M ISC #### [facility] [address] [place] [address] Dr. Sveta Velasquez REV FROM REF LAB 04/13/2022 [facility] Comment on above: Performed By: #### M ISC #### [facility] [address] [place] [address] Dr. Sveta Velasquez SENT TO REF LAB 04/13/2022 [facility] Comment on above: Result Comment: [facility] Performed By: #### M ISC #### [facility] [address] [place] [address] Dr. Sveta GRAY HEADER SEE SCANNED REPORT IN HPF Normal [facility] Comment on above: Performed By: #### M ISC #### [facility] [address] [place] [address] Dr. Sveta Velasquez REV FROM REF LAB 04/13/2022 [facility] Comment on above: Performed By: #### M ISC #### [facility] [address] [place] [address] Dr. Sveta Velasquez SENT TO REF LAB 04/13/2022 [facility] Comment on above: Result Comment: [facility] Performed By: #### M ISC #### [facility] [address] [place] [address] Dr. Sveta GRAY HEADER SEE SCANNED REPORT IN HPF Normal [facility] Comment on above: Performed By: #### M ISC #### [facility] [address] [place] [address] Dr. Sveta Velasquez REV FROM REF LAB 04/13/2022 [facility] Comment on above: Performed By: #### M ISC #### [facility] [address] [place] [address] Dr. Sveta Velasquez SENT TO REF LAB 04/13/2022 Normal [facility] Comment on above: Result Comment: [facility] Performed By: #### M ISC #### [facility] [address] [place] [address] Dr. Sveta Velasquez RECV HEADER SEE SCANNED REPORT IN HPF Normal [facility] Comment on above: Performed By: #### V ITAD #### [facility] [address] [place] [address] Dr. Sveta Velasquez REV FROM REF LAB 04/13/2022 Normal [facility] Comment on above: Performed By: #### V ITAD #### [facility] [address] [place] [address] Dr. Sveta Velasquez SENT TO REF LAB 04/13/2022 Normal [facility] Comment on above: Result Comment: [place] [facility] [place] Performed By: #### V ITAD #### [facility] [address] [place] [address] Dr. Sveta Velasquez RECV HEADER SEE SCANNED REPORT IN HPF Normal [facility] Comment on above: Performed By: #### M ISC #### [facility] [address] [place] [address] Dr. Sveta Velasquez REV FROM REF LAB 04/13/2022 [facility] Comment on above: Performed By: #### M ISC #### [facility] [address] [place] [address] Dr. Sveta Velasquez SENT TO REF LAB 04/13/2022 Normal [facility] Comment on above: Result Comment: [facility] [place] Performed By: #### M ISC #### [facility] [address] [place] [address] Dr. Sveta Velasquez No Panel InformationOrdered By: Marito Villalobos on 04-13-2022 Estimated GFR () > 60 mL/Min [facility] Comment on above: GFR estimated refere nce range: According to KDOQI guidelines, <60 ml/min/1.73m2 is sufficient to diagnose a patient with chronic kidney disease. Pharmacy Creatinine Clearance (Chem N/A [facility] Phenytoin (Dilantin)on 04-13 Phenytoin [Mass/Vol] 8.2 ug/mL Low 10.0-20.0 [facility] Comment on above: Order Comment: Date of last dose?: 20220412 Time of last dose?: 399 Result Comment: Last dose: - PERFORMED BY: [facility] [address] [place] [address] PATHOLOGIST MEDICATION NURSE JOSH MESSINA M.D. Performed By: #### C KMB, HS TROP, CK, CMP, CRP, PHENY #### [facility] [address] Protein [Mass/volume] in Ser um or PlasmaOrdered By: Marito Villalobos on 04-13-2022 Protein [Mass/Vol] 7.5 g/dL 6.1-7.[address] [facility] 17 mm/hr Normal <=30 [facility] Comment on above: Performed By: #### S EDR #### [facility] [address] [address] [address] Sveta Velasquez Serum or plasma C reactive p rotein measurement (mass/volume)Ordered By: Marito Villalobos on 04-13-2022 CRP [Mass/Vol] 0.6 mg/dL 0.0-1.0 [facility] Serum or plasma alanine jerez otransferase measurement without P-5'-P (enzymatic activiOrdered By: Marito Villalobos on 04-13-2022 ALT No additional P-5'-P [Catalytic activity/Vol] 26 U/L 10-60 [facility] Serum or plasma albumin/glob ulin mass ratioOrdered By: Marito Villalobos on 04-13-2022 Albumin/Globulin [Mass ratio] 1.4 {ratio} [facility] Serum or plasma alkaline kat sphatase measurement (enzymatic activity/volume)Ordered By: Marito Villalobos on 04-13-2022 ALP [Catalytic activity/Vol] 97 U/L 32-92 [facility] Serum or plasma aspartate am inotransferase measurement (enzymatic activity/volume)Ordered By: Marito Villalobos on 04-13-2022 AST [Catalytic activity/Vol] 29 U/L 10-42 [facility] Serum or plasma calcium hoa urement (mass/volume)Ordered By: Marito Villalobos on 04-13-2022 Calcium [Mass/Vol] 10.3 mg/dL 8.2-10.[address] [facility] Serum or plasma chloride kilo surement (moles/volume)Ordered By: Marito Villalobos on 04-13-2022 Chloride [Moles/Vol] 92 mmol/L 95-114 [facility] Serum or plasma creatine kin ase MB (CKMB)/total creatine kinase (CK) ratio by calculaOrdered By: Marito Villalobos on 04-13-2022 CK.MB Calc [Catalytic fraction] 2.0 % 0.00-2.50 [facility] Serum or plasma creatine kin ase MB measurement (mass/volume)Ordered By: Marito Villalobos on 04-13-2022 CK.MB [Mass/Vol] 1.1 ng/mL 0.6-6.3 [facility] Serum or plasma glucose hoa urement (mass/volume)Ordered By: Marito Villalobos on 04-13-2022 Glucose [Mass/Vol] 407 mg/dL 70-[address] [facility] Comment on above: ADA recommended refe rence range Random Glucose Reference Range is dependent on time and content of last meal. Glucose of more than 200 mg/dL in a nonstressed, ambulatory subject supports the diagnosis of Diabetes Mellitus. Serum or plasma phenytoin me asurement (mass/volume)Ordered By: Marito Villalobos on 04-13-2022 Phenytoin [Mass/Vol] 8.2 ug/mL 10.0-20.0 [facility] Comment on above: Last dose: - Serum or plasma potassium me asurement (moles/volume)Ordered By: Marito Villalobos on 04-13-2022 Potassium [Moles/Vol] 4.4 mmol/L 3.5-5.1 [facility] Serum or plasma sodium measu rement (moles/volume)Ordered By: Marito Villalobos on 04-13-2022 Sodium [Moles/Vol] 134 mmol/L 136-[address] [facility] Serum or plasma total biliru bin measurement (mass/volume)Ordered By: Marito Villalobos on 04-13-2022 Bilirubin [Mass/Vol] 0.7 mg/dL 0.3-1.2 [facility] Serum or plasma total carbon dioxide measurement (moles/volume)Ordered By: Marito Villalobos on 04-13-2022 CO2 [Moles/Vol] 21.3 mmol/L 22.0-30.0 [facility] Serum or plasma urea nitroge n measurement (mass/volume)Ordered By: Marito Villalobos on 04-13-2022 Urea nitrogen [Mass/Vol] 15 mg/dL 9- [facility] Troponin I High Sensitivityo n 04-13-2022 Troponin I High Sensitivity < 3 Normal 0-15 [facility] Comment on above: Result Comment: PERF ORMED BY: [place] [id number] PATHOLOGIST MEDICATION NURSE JOSH MESSINA M.D. Performed By: #### C K, CKMB, HS TROP #### [facility] [address] [place] [address] Troponin I High Sensitivity 3 pg/mL Normal 0-15 [facility] Comment on above: Result Comment: PERF ORMED BY: [place] [id number] PATHOLOGIST MEDICATION NURSE JOSH MESSINA M.D. Performed By: #### C KMB, HS TROP, CK, CMP, CRP, PHENY #### [facility] [address] [place], [place] [id number] [place] Troponin I High Sensitivity 3 pg/mL Normal 0-15 [facility] Comment on above: Result Comment: PERF ORMED BY: [facility] [address] [place] [address] PATHOLOGIST MEDICATION NURSE JOSH MESSINA M.D. Performed By: #### C KMB, HS TROP, CK, CMP, CRP, PHENY #### [facility] [address] [place], [place] [id number] [place] Troponin I.cardiac [Mass/vol ume] in Serum or Plasma by High sensitivity methodOrdered By: Marito Villalobos on 04-13-2022 Troponin I.cardiac High sensitivity method [Mass/Vol] < 3 pg/mL 0-15 [facility] Ambulatory Visit Summaryon 0 - Ambulatory Visit Summary KRISTIN NULL :1960 Visit Date:03/29/2022 Ambulatory Visit Instructions Your Care Team Attending Physician - GLADYS NAZARIO, Luz Juarez Primary Care Physician - Niki Pearson MD This Is Your Medications List Contact prescribing physician if questions or concerns clonazepam (ClonazePAM 0.5 mg Tab) escitalopram (Lexapro 10 mg Tab) fluticasone/umeclidi nium/vilanterol (Trelegy Ellipta 100 mcg-62.5 mcg-25 mcg inhalation powder) gabapentin (gabapentin 800 mg Tab) mometasone nasal (Nasonex 50 mcg/inh [place]) phenytoin (Dilantin 100 mg Cap-ER) phenytoin (Dilantin 30 mg oral capsule, extended release) trazodone (traZODONE 50 mg Tab) Procedures Performed Arthroscopy of knee (2020), Arthroscopy of knee (2019), Release of trigger finger (2013), Arthroscopy of knee (2009), Cholecystectomy (2006), Parathyroidectomy (2003), Internal impingement of right shoulder (1997), Excision of cyst (1989), Excision of cyst, History of spinal fusion, Lobectomy of brain, Repair of long head of biceps brachii, Repair of ulnar digital nerve, Rotator cuff repair, Sialendoscope, Tubal ligation, Vaginoscopy. Discharge Vitals Heart Rate (Peripheral) 84 Respiratory Rate 16 Blood Pressure 128/84 Height 152.4 cm Height 152.4 cm Weight 76.6 kg Weight 76.6 kg BMI 32.98 Medications What How Much When Instructions Unchanged clonazepam (ClonazePAM 0.5 mg Tab) 0.5 Tablets By Mouth Once a day (at bedtime) Contact prescribing physician if questions or concerns Unchanged escitalopram (Lexapro 10 mg Tab) 1 Tablets By Mouth Every day Contact prescribing physician if questions or concerns Unchanged fluticasone/ umeclidinium/ vilanterol (Trelegy Ellipta 100 mcg-62.5 mcg-25 mcg inhalation powder) 1 Puffs Inhalation Every day Contact prescribing physician if questions or concerns Unchanged gabapentin (gabapentin 800 mg Tab) 1 Tablets By Mouth 4 times a day Contact prescribing physician if questions or concerns Unchanged mometasone nasal (Nasonex 50 mcg/ inh [place]) 1 Sprays Nasal Inhalation 2 times a day as needed for for allergy symptoms in each nostril Contact prescribing physician if questions or concerns Unchanged phenytoin (Dilantin 100 mg Cap-ER) 3 Capsules By Mouth Once a day (at bedtime) Contact prescribing physician if questions or concerns Unchanged phenytoin (Dilantin 30 mg oral capsule, extended release) as directed Contact prescribing physician if questions or concerns Unchanged trazodone (traZODONE 50 mg Tab) 1 Tablets By Mouth Once a day (at bedtime) Contact prescribing physician if questions or concerns Allergies No Known Allergies No Known Medication Allergies Problems Ongoing - Any problem that you are currently receiving treatment for. Anxiety Depression Diabetes Eating disorder HTN (hypertension) Hyperlipidemia Insomnia Obstructive sleep apnea syndrome Parathyroid adenoma Temporal lobe epilepsy Normal [facility] Physician Referralon 022 Physician Referral [id number] #[id number] Normal [facility] [id number] 02-09-2021 SARS-CoV-2 Normal [facility] Comment on above: Performed By: #### C OVID #### [facility] [address] [place] [address] Sales Operations: Chavez Rivera MD [id number] [place], [place] [id number] Sales Operations: Kenyon Hewitt MD SARS-CoV-2 Not Detected Normal [facility] Comment on above: Result Comment: The specimen is NEGATIVE for SARS-CoV-2, the novel coronavirus associated with COVID-19. A negative result does not rule out COVID-19. Mariah SARS-CoV-2 for use on the Mariah [employer]8800 [employer] is a real-time RT-PCR test intended for the qualitative detection of nucleic acids from SARS-CoV-2 in clinician-collected nasal, nasopharyngeal, and oropharyngeal swab specimens from individuals who meet COVID-19 clinical and/or epidemiological criteria. Mariah SARS-CoV-2 is for use only under Emergency Use Authorization (EUA) in laboratories certified under Clinical Laboratory Improvement Amendments of 1988 (CLIA), 42 U.S.C. ?263a, that meet requirements to perform high or moderate complexity tests. An individual without symptoms of COVID-19 and who is not shedding SARS-CoV-2 virus would expect to have a negative (not detected) result in this assay. Fact sheet for Healthcare Providers: https://www.fda.gov/media/614999/download Fact sheet for Patients: https://www.fda.gov/media/552145/download METHODOLOGY: RT-PCR Performed By: #### C OVID #### [facility] [address] [place], [place] [id number] Sales Operations: Chavez Rivera MD [address] [phone] Sales Operations: Kenyon Hewitt MD [id number] 02-08-2021 SARS-CoV-2 Source .NASOPHARYNGEAL SWAB Normal [facility] Comment on above: Performed By: #### C OVID #### [facility] [address] [place], [place] [phone] Sales Operations: Chavez Rivera MD [address] [phone] Sales Operations: Kenyon Hewitt MD Vital Signs Date Time Vital Sign Value Performing Clinician Facility 09-23-2024 15:07-0500 Body mass index (BMI) [Ratio] 37.11 kg/m2 Florin Burgos MD Work Phone: [facility] 09-23-2024 15:07-0500 Body weight 86.18 kg Florin Burgos MD Work Phone: [facility] 09-23-2024 15:07-0500 Diastolic blood pressure 89 mm[Hg] Florin Burgos MD Work Phone: [facility] 09-23-2024 15:07-0500 Heart rate 75 /min Florin Burgos MD Work Phone: [facility] 09-23-2024 15:07-0500 Systolic blood pressure 168 mm[Hg] Florin Burgos MD Work Phone: [facility] 12-25-2023 15:49-0500 Body mass index (BMI) [Ratio] 37.11 kg/m2 Florin Burgos MD Work Phone: [facility] 12-25-2023 15:49-0500 Body weight 86.18 kg Florin Burgos MD Work Phone: [facility] 12-25-2023 15:49-0500 Diastolic blood pressure 90 mm[Hg] Florin Burgos MD Work Phone: [facility] 12-25-2023 15:49-0500 Systolic blood pressure 147 mm[Hg] Florin Burgos MD Work Phone: [facility] 11-06-2023 13:45-0500 Body temperature 97.7 [degF] Endy Cruz MD Work Phone: [email or web address] 11-06-2023 13:45-0500 Diastolic blood pressure 64 mm[Hg] Endy Cruz MD Work Phone: [facility] 11-06-2023 13:45-0500 Heart rate 77 /min Endy Cruz MD Work Phone: [facility] 11-06-2023 13:45-0500 Respiratory rate 16 /min Endy Cruz MD Work Phone: [facility] 11-06-2023 13:45-0500 SaO2% (BldA) [Mass fraction] 93 % Endy Cruz MD Work Phone: [employer] [facility] 11-06-2023 13:45-0500 Systolic blood pressure 120 mm[Hg] Endy Cruz MD Work Phone: [employer] [facility] 11-06-2023 11:03-0500 Body height 152.4 cm Endy Cruz MD Work Phone: [employer] [facility] 11-06-2023 11:03-0500 Body mass index (BMI) [Ratio] 37.11 kg/m2 Endy Cruz MD Work Phone: [employer] 11-06-2023 11:03-0500 Body weight 86.18 kg Endy Cruz MD Work Phone: [employer] 10-29-2022 12:20-0500 Respiratory rate 18 /min Endy Cruz MD Work Phone: [employer] 10-29-2022 11:24-0500 Body temperature 98.01 [degF] Endy Cruz MD Work Phone: [employer] 10-29-2022 11:24-0500 Diastolic blood pressure 82 mm[Hg] Endy Cruz MD Work Phone: [employer] 10-29-2022 11:24-0500 Heart rate 88 /min Endy Cruz MD Work Phone: [employer] 10-29-2022 11:24-0500 SaO2% (BldA) [Mass fraction] 93 % Endy Cruz MD Work Phone: [employer] 10-29-2022 11:24-0500 Systolic blood pressure 143 mm[Hg] Endy Cruz MD Work Phone: [employer] 10-28-2022 12:15-0500 Body height 152.4 cm Endy Cruz MD Work Phone: [employer] 10-28-2022 12:15-0500 Body mass index (BMI) [Ratio] 33.98 kg/m2 Endy Cruz MD Work Phone: [employer] 10-28-2022 12:15-0500 Body weight 78.93 kg Endy Cruz MD Work Phone: [employer] 09-04-2022 09:10-0400 Respiratory rate 17 /min Endy Cruz MD Work Phone: [employer] 09-04-2022 08:30-0400 Body temperature 98.71 [degF] Endy Cruz MD Work Phone: [employer] [facility] 09-04-2022 08:30-0400 Diastolic blood pressure 84 mm[Hg] Endy Cruz MD Work Phone: [facility] 09-04-2022 08:30-0400 Heart rate 107 /min Endy Cruz MD Work Phone: [facility] 09-04-2022 08:30-0400 SaO2% (BldA) [Mass fraction] 96 % Endy Cruz MD Work Phone: [employer] [facility] 09-04-2022 08:30-0400 Systolic blood pressure 149 mm[Hg] Endy Cruz MD Work Phone: [facility] 09-02-2022 08:03-0400 Body height 152.4 cm Endy Cruz MD Work Phone: [email or web address] 09-02-2022 08:03-0400 Body mass index (BMI) [Ratio] 32.03 kg/m2 Endy Cruz MD Work Phone: [facility] 09-02-2022 08:03-0400 Body weight 74.39 kg Endy Cruz MD Work Phone: [employer] [facility] 08-28-2022 10:16-0400 Body height 152.4 cm Stvz 1 [employer] [facility] [email or web address] 08-28-2022 10:16-0400 Body mass index (BMI) [Ratio] 32.03 kg/m2 Stvz [address] [employer] [facility] 08-28-2022 10:16-0400 Body temperature 97.5 [degF] [facility] 1 [employer] [facility] 08-28-2022 10:16-0400 Body weight 74.39 kg Stvz 1 [employer] [facility] [email or web address] 08-28-2022 10:16-0400 Diastolic blood pressure 77 mm[Hg] Stvz 1 [employer] [email or web address] 08-28-2022 10:16-0400 Heart rate 78 /min Stvz 1 [employer] 08-28-2022 10:16-0400 Respiratory rate 16 /min Stvz 1 [facility] 08-28-2022 10:16-0400 SaO2% (BldA) [Mass fraction] 96 % Stvz 1 [facility] 08-28-2022 10:16-0400 Systolic blood pressure 117 mm[Hg] Stvz 1 [facility] 06-17-2022 17:29-0400 Diastolic blood pressure 93 mm[Hg] Seamus Handy MD [facility] 06-17-2022 17:29-0400 Heart rate 97 /min Seamus Handy MD [facility] 06-17-2022 17:29-0400 Respiratory rate 18 /min Seamus Handy MD [facility] 06-17-2022 17:29-0400 SaO2% (BldA) [Mass fraction] 97 % Seamus Handy MD [facility] 06-17-2022 17:29-0400 Systolic blood pressure 160 mm[Hg] Seamus Handy MD [facility] 06-17-2022 16:42-0400 Body height 152.4 cm Seamus Handy MD [facility] 06-17-2022 16:42-0400 Body mass index (BMI) [Ratio] 31.25 kg/m2 Seamus Handy MD [facility] 06-17-2022 16:42-0400 Body temperature 98.6 [degF] Seamus Handy MD [facility] 06-17-2022 16:42-0400 Body weight 72.58 kg Se[facility] MD [facility] 03-29-2022 13:41-0400 Blood Pressure Location Luz GRAHAM [facility] [place] 03-29-2022 13:41-0400 Diastolic blood pressure 84 mm[Hg] Luz GRAHAM [facility] [place] 03-29-2022 13:41-0400 Heart rate 84 /min Luz GRAHAM [facility] [place] 03-29-2022 13:41-0400 Respiratory rate 16 /min Luz GRAHAM [facility] [place] 03-29-2022 13:41-0400 Systolic blood pressure 128 mm[Hg] Luz GRAHAM [facility] [place] 02-12-2021 13:40-0400 Body Temperature 97.3 [degF] [employer]y [employer] Phone: 02-12-2021 13:40-0400 BP Diastolic 99 mm[Hg] [employer] Phone: 02-12-2021 13:40-0400 BP Systolic 153 mm[Hg] Endy [employer] Phone: 02-12-2021 13:40-0400 Pulse (Heart Rate) 95 /min Endy [employer] Phone: 02-12-2021 13:40-0400 Pulse Oximetry 94 % Endy [employer] Phone: 02-12-2021 13:40-0400 Respiratory Rate 14 /min Endy [employer] Phone: 02-12-2021 09:46-0400 BMI (Body Mass Index) 37.3 kg/m2 Endy [employer] Phone: 02-12-2021 09:46-0400 Body weight 86.64 kg [address]y [employer] [employer] Phone: 02-12-2021 09:46-0400 Height 152.[address] [employer] Phone: Encounters Encounter Date Encounter Type Care Provider Facility Start: 09-23-2024 End: 09-23-2024 ambulatory FLORIN BURGOS Not Available Comment on above: Other nerve root and plexus disorders (Primary Dx); Chronic insomnia; 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; Focal epilepsy (CMS/HCC); Trochanteric bursitis, right hip Start: 09-23-2024 End: 09-23-2024 Bamboo flowsheet Florin Burgos MD Work Phone: [facility] Start: 09-23-2024 End: 09-23-2024 Bamboo flowsheet Florin Burgos MD [facility] Start: 09-17-2024 End: 09-17-2024 Telephone encounter Florin Burgos MD Work Phone: [employer] [facility] Start: 09-17-2024 ambulatory ROSALBARoseline GREGORIO [facility] Start: 08-20-2024 ambulatory ROSALBA Floridalma GREGORIO [facility] Start: 07-30-2024 ambulatory ROSALBA Floridalma GREGORIO [facility] Start: 07-05-2024 End: 07-05-2024 ambulatory FLORIN BURGOS Not Available Start: 06-25-2024 ambulatory ROSALBA Floridalma GREGORIO [facility] Start: 06-15-2024 End: 06-15-2024 ambulatory LA HOYOS Not Available Start: 05-28-2024 ambulatory ROSALBA Floridalma GREGORIO [facility] Start: 05-03-2024 ambulatory ROSALBA Floridalma GREGORIO [facility] Start: 04-15-2024 ambulatory ROSALBA Floridalma GREGORIO [facility] Start: 04-02-2024 ambulatory ROSALBA Floridalma GREGORIO [facility] Start: 03-25-2024 End: 03-25-2024 ambulatory FLORIN BURGOS Not Available Start: 03-11-2024 ambulatory ROSALBA Floridalma GREGORIO [facility] Start: 02-08-2024 End: 02-08-2024 Emergency department patient visit LUZ GARG [facility] Start: 01-30-2024 ambulatory ROSALBA Floridalma GREGORIO [facility] Start: 01-01-2024 ambulatory ROSALBA GarciaOzzy GREGORIO [facility] Start: 12-25-2023 End: 12-25-2023 ambulatory FLORIN BURGOS Not Available Start: 12-25-2023 End: 12-25-2023 Office outpatient visit 25 minutes Florin Burgos MD Work Phone: [facility] Comment on above: Acute carpal tunnel syndrome of right wrist (Primary Dx); Seizure (CMS/HCC); Allodynia; Cervical radiculopathy; Complex partial seizure with impairment of consciousness (CMS/HCC) Start: 12-24-2023 Chart abstracting Florin saldivar MD Work Phone: [facility] Start: 11-20-2023 ambulatory ROSALBA Floridalma GREGORIO [facility] Start: 11-06-2023 End: 11-06-2023 ambulatory ENDY [facility] Start: 11-06-2023 End: 11-06-2023 Subsequent hospital visit by physician Endy Cruz MD Work Phone: [facility] [place] Comment on above: Acute postoperative pain (Primary Dx) Start: 10-23-2023 End: 10-23-2023 ambulatory FLORIN BURGOS Not Available Start: 10-20-2023 ambulatory ROSALBA Floridalma GREGORIO [facility] Start: 08-18-2023 End: 08-18-2023 ambulatory ENDY [facility] Start: 08-05-2023 End: 08-10-2023 ambulatory ENDY [facility] Start: 08-05-2023 End: 08-10-2023 Encounter for other preprocedural examination ENDY CRUZ [facility] Start: 03-11-2023 End: 03-12-[address] NIKI PEARSON . Facility:[facility] Start: 03-07-2023 End: 03-08-[address] NIKI PEARSON . Facility:[facility] Start: 11-08-2022 End: 11-09-[address] NIKI PEARSON . Facility:[facility] Start: 10-28-2022 End: 10-29-2022 Evaluation and management of inpatient Endy Cruz MD Work Phone: [facility] Comment on above: Cervical stenosis of spinal canal (Primary Dx); S/P cervical spinal fusion Start: 09-02-2022 End: 09-04-2022 Subsequent hospital visit by physician Endy Cruz MD Work Phone: [facility] Comment on above: Post-op pain (Primar y Dx) Start: 08-28-2022 End: 09-01-2022 Subsequent hospital visit by physician Juno Pat 1 [facility] Pre-Admit Testing Start: 06-22-2022 End: 06-23-[address] NIKI PEARSON . Facility:[facility] Start: 06-17-2022 End: 06-17-2022 Emergency department patient visit Seamus Handy MD [facility] ED Comment on above: Yeast infection invo lving the vagina and surrounding area (Primary Dx) Start: 05-23-2022 End: 05-24-[address] ROCÍO REYES Facility:[facility] Start: 05-12-2022 End: 05-12-[address] CHAVEZ VARGAS Facility:[facility] Start: 05-01-2022 End: 05-02-[address] NIKI PEARSON . Facility:[facility] Start: 04-22-2022 End: 05-11-[address] NIKI PEARSON . Facility:[facility] Start: 04-13-2022 End: 04-13-2022 Patient encounter procedure MD Marito Villalobos Work Phone: [facility] Start: 04-13-2022 End: 04-13-[address] NIKI PEARSON . Facility:[facility] Start: 03-29-2022 End: 03-29-2022 Patient encounter procedure Luz Juarez GLADYS [facility]/Myranda Sanchez Start: 03-20-2022 End: 03-21-[address] NIKI PEARSON . Facility: Start: 02-12-2021 End: 02-12-2021 Subsequent hospital visit by physician Endy Cruz Work Phone: [facility] Comment on above: Post-op pain (Primar y Dx) Start: 02-08-2021 End: 02-09-2021 Patient encounter procedure ENDY CRUZ [facility] Start: 02-08-2021 End: 02-08-2021 Subsequent hospital visit by physician Clive Norris Screening Schedule [facility] Cov[facility] Screening Comment on above: Preop testing (Prima ry Dx) Procedures Date Procedure Procedure Detail Performing Clinician Start: 11-06-2023 Glucose blood reagent strip Endy Cruz MD Work Phone: Start: 10-29-2022 Glucose blood reagent strip Endy Cruz MD Work Phone: Start: 10-29-2022 Glucose blood reagent strip Endy Cruz MD Work Phone: Start: 10-29-2022 BASIC METABOLIC PANE L W/ REFLEX TO MG FOR LOW K López Cash DO Work Phone: Start: 10-28-2022 Glucose blood reagent strip Endy Cruz MD Work Phone: Start: 10-28-2022 Glucose blood reagent strip Endy Cruz MD Work Phone: Start: 10-28-2022 Creatinine blood [place] y Balbir DO Work Phone: Start: 10-28-2022 Glucose blood reagent strip Endy Cruz MD Work Phone: Start: 10-28-2022 Fluoroscopy during operation Endy Cruz MD Work Phone: Start: 10-28-2022 Glucose blood reagent strip Endy Cruz MD Work Phone: Start: 09-04-2022 Glucose blood reagent strip Endy Cruz MD Work Phone: Start: 09-04-2022 Glucose blood reagent strip Endy Cruz MD Work Phone: Start: 09-04-2022 Ct thorax w/contrast material Jose Manuel Kearney MD Work Phone: Start: 09-03-2022 Urinalysis microscopic only Jose Manuel Kearney MD Work Phone: Start: 09-03-2022 Urnls dip stick/tabl et rgnt auto w/o microscopy Jose Manuel Kearney MD Work Phone: Start: 09-03-2022 Glucose blood reagent strip Endy Cruz MD Work Phone: Start: 09-03-2022 Glucose blood reagent strip Endy Cruz MD Work Phone: Start: 09-03-2022 End: 09-03-2022 Blood count complete auto&auto difrntl wbc Endy Cruz MD Work Phone: Start: 09-03-2022 Radiologic exam ches t single view Jose Manuel Kearney MD Work Phone: Start: 09-03-2022 SPECIMEN REJECTION Presley Cruz MD Work Phone: Start: 09-03-2022 Glucose blood reagent strip Endy Cruz MD Work Phone: Start: 09-02-2022 Glucose blood reagent strip Endy Cruz MD Work Phone: Start: 09-02-2022 RESPIRATORY CARE ASHLEY LUATION ONLY Theresa Carvajal DO Work Phone: Start: 09-02-2022 Radex spine 1 view s pecify level Endy Cruz MD Work Phone: Start: 09-02-2022 End: 09-02-2022 Radex spine 1 view specify level Endy Cruz MD Work Phone: Start: 09-02-2022 End: 09-02-2022 CERVICAL LAMINECTOMY FUSION ANTERIOR Endy Cruz MD Work Phone: Start: 08-28-2022 Electrolyte panel Jorge Howell MD Work Phone: Start: 08-28-2022 Ecg routine ecg w/le ast 12 lds i&r only Chip Howell MD Work Phone: Start: 06-17-2022 Urnls dip stick/tabl et rgnt auto w/o microscopy Shanon Crawford DO Work Phone: Start: 06-17-2022 End: 06-17-2022 Gluc bld gluc mntr dev cleared fda spec home use Shanon Crawford DO Work Phone: Start: 06-17-2022 End: 06-17-2022 Iadna alon species direct probe tq Shanon Crawford DO Work Phone: Start: 11-10-2020 Arthroscopy of knee Oliverio hael NILL Start: 11-10-2019 Arthroscopy of knee Oliverio hael NILL Start: 11-10-2013 Release of trigger finger Luz NILL Start: 11-10-2009 Arthroscopy of knee Oliverio hael NILL Start: 11-10-2006 Cholecystectomy Luz NILL Start: 11-10-2003 Parathyroidectomy Iron el NILL Start: 11-10-1997 Internal impingement of right shoulder (disorder) Luz NILL Start: 11-10-1989 Excision of cyst Michae l NILL Comment on above: right breast x 2 Decompression of median nerve Luz NILL Endoscopy of vagina Luz NILL Excision of cyst Luz NIL L Comment on above: right dorsal foot History of spinal fusion Oliverio hael NILL Ligation of fallopian tube M ichael NILL Lobectomy of brain Luz DIAZ Comment on above: right temporal Repair of long head of biceps brachii Luz GRAHAM Repair of musculoten dinous cuff of shoulder Luz GRAHAM Repair of ulnar digital nerve Luz GRAHAM Sialendoscope (physi maritza object) Luz GRAHAM Plan of Treatment Date Care Activity Detail Author Start: 12-02-2024 End: 12-02-2024 Clinical Support 12/02/2024 3:40 PM EST Clinical Support [facility] [address] [place] [address] Florin Burgos MD [address] [facility] [address] Dennis [address] [place] [address], [place] [address] [facility] Start: 09-23-2024 End: 09-23-2024 Clinical Support 09/23/2024 3:20 PM EST Clinical Support [facility] [address] [address] Florin Burgos MD [address] [facility] [address] Dennis [address] [place] [address], [place] [address] [facility] Start: 08-05-2024 GFR test (Diabetes, CKD 3-4, OR last GFR 15-59) GFR test (Diabetes, CKD 3-4, OR last GFR 15-59) [facility] Start: 03-25-2024 End: 03-25-2024 Patient encounter procedure 03/25/2024 3:30 PM EDT Office Visit [facility] [address] [facility] [address] [place] [id number] Florin Burgos MD [address] [facility] [address] Dennis [address] [place] [address], [place] [address] [facility] Start: 12-25-2023 End: 12-25-2023 Patient encounter procedure 12/25/2023 3:40 PM EST Office Visit [facility] [address] [place] [address] Florin Burgos MD [address] Dennis [address] [place] [address] [facility] Start: 11-06-2023 End: 11-06-2023 Neuroplasty &/transpos median nrv carpal tunne CARPAL TUNNEL RELEASE Right carpal tunnel syndrome 11/06/2023 12:39 PM EST [facility] Start: 06-10-2023 Influenza vaccination Flu vaccine (# 1) [facility] Start: 10-24-2022 Pneumococcal 0-64 ye ars Vaccine (2 - PPSV23 if available, else PCV20) Pneumococcal 0-64 years Vaccine (2 - PPSV23 if available, else PCV20) [facility] Start: 09-02-2022 End: 09-02-2022 CERVICAL LAMINECTOMY FUSION ANTERIOR CERVICAL LAMINECTOMY FUSION ANTERIOR 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) 09/02/2022 8:40 AM EDT [facility] Start: 07-11-2022 Influenza vaccination Flu vaccine (# 1) [facility] Start: 06-10-2022 Influenza vaccination Flu vaccine (# 1) [facility] Start: 12-19-2021 Pneumococcal 65+ yea rs Vaccine (2 - PPSV23 or PCV20) Pneumococcal 65+ years Vaccine (2 - PPSV23 or PCV20) [facility] Start: 07-11-2021 Influenza vaccination Flu vacc ine (Season Ended) [facility] Work Phone: Start: 02-12-2021 End: 02-12-2021 Hospital Encounter [facility] [place] Comment on above: KNEE ARTHROSCOPY WIT H MENISCECTOMY Start: 01-29-2021 Annual Wellness Visi t (AWV) Annual Wellness Visit (AWV) [facility] Start: 01-29-2021 End: 01-29-2022 COVID-19 COVID-19 Lab Routine Preop testing Expected: 01/29/2021, Expires: 01/29/2022 [employer] Phone: Comment on above: Expected: 01/29/2021 , Expires: 01/29/2022 Start: 07-16-2019 Screening for malign ant neoplasm of breast Breast cancer screen [employer] Start: 2018 Respiratory Syncytia l Virus (RSV) or age 60 yrs+ (1 - 1-dose 60+ series) Respiratory Syncytial Virus (RSV) or age 60 yrs+ (1 - 1-dose 60+ series) [employer] Start: 2013 Screening for osteoporosis DEXA (modify frequency per FRAX score) [employer] Start: 2008 Screening for malign ant neoplasm of breast Breast cancer screen [employer] Start: 2008 Screening for malign ant neoplasm of colon Colon cancer screen colonoscopy [employer] Phone: Start: 2008 Shingles Vaccine (1 of 2) Shingles Vaccine (1 of 2) [employer] Start: 2003 Screening for malign ant neoplasm of colon [employer] Start: 1998 Diabetes screen Diabetes screen [employer] Phone: Start: 1998 Lipid panel [employer] Start: 1993 Diabetes screen Diabetes screen [employer] Start: 1988 Screening for malign ant neoplasm of cervix [employer] Start: 1979 Screening for malign ant neoplasm of cervix [employer] Start: 1977 DTaP/Tdap/Td vaccine (1 - Tdap) DTaP/Tdap/Td vaccine ( - Tdap) [employer] Start: 1976 Diabetic retinal exam Diabetic retin al exam [employer] Start: 1976 Glaucoma screening Diabetic retinal exam [employer] Start: 1976 Hepatitis C screening Hepatitis C sc reen [employer] Start: 1976 Urine screening for protein [facility] [employer] Start: 1974 COVID-19 Vaccine (1) COVID-19 Vaccin e (1) [employer] Phone: Start: 1973 HIV screening HIV screen [facility] [employer] Start: 1970 Depression Screen Depression Screen [facility] [employer] Start: 1968 Diabetic foot examination Diabetic foot exam [facility] [employer] Start: 1968 Hemoglobin A1c measurement A1C test (Diabetic or Prediabetic) [facility] [employer] Start: 1968 Lipid panel Lipids [facility] [employer] Start: 03-31-1959 COVID-19 Vaccine (#1) COVID-19 Vacci ne (#1) [facility] [employer] Start: 1958 Annual Wellness Visi t (AWV) Annual Wellness Visit (AWV) [facility] [employer] Start: 1958 Hepatitis C screening Hepatitis C sc ree [employer] Work Phone: Adult NIV/Positive Airway Pressure Adult NIV/Positive Airway Pressure Respiratory Care Routine Every 4hr until discontinued starting 09/03/2022 [facility] [employer] Phone: Comment on above: Every 4hr until disc ontinued starting 09/03/2022 End: 11-06-2023 Blood glucose - POCT [facility] [employer] Comment on above: One Time for 1 Occur rences starting 11/06/2023 until 11/06/2023 Continuous pulse oximetry Pulse oximetry, continuous Respiratory Care Routine Every 4hr until discontinued starting 09/02/2022 [facility] Work Phone: Comment on above: Every 4hr until disc ontinued starting 09/02/2022 End: 02-08-2021 COVID-19 COVID-19 Lab Routine Preop testing 1 Occurrences starting 02/08/2021 until 02/08/2021 [employer] [facility]: Comment on above: 1 Occurrences starti ng 02/08/2021 until 02/08/2021 COVID-19 COVID-19 Lab Rou jassi Preop testing 02/08/2021 10:00 AM EDT [employer] Phone: End: 06-17-2022 Culture, Urine [employer] Comment on above: Once for 1 Occurrenc es starting 06/17/2022 until 06/17/2022 Glucose [Mass/volume ] in Serum or Plasma [employer] Phone: Comment on above: 4X Daily (AC & HS) u ntil discontinued starting 09/02/2022 As Needed until disc ontinued starting 09/02/2022 Glucose [Mass/volume ] in Serum or Plasma [employer] Phone: Comment on above: 4X Daily (AC & HS) u ntil discontinued starting 10/28/2022 As Needed until disc ontinued starting 10/28/2022 Home BIPAP or CPAP Home BIPAP or CPAP Respiratory Care Routine Daily until discontinued starting 09/02/2022 [employer] Phone: Comment on above: Daily until disconti nued starting 09/02/2022 End: 09-04-2022 Home O2 eval (desaturation screen) Home O2 eval (desaturation screen) Respiratory Care Routine One Time for 1 Occurrences starting 09/04/2022 until 09/04/2022 [employer] Phone: Comment on above: One Time for 1 Occur rences starting 09/04/2022 until 09/04/2022 End: 11-06-2023 INITIATE PACU OXYGEN THERAPY PROTOCOL Initiate PACU Oxygen Therapy Protocol Respiratory Care Routine Continuous until discontinued starting 11/06/2023 [employer] Phone: Comment on above: Continuous until dis continued starting 11/06/2023 Oxygen therapy [Mini mum Data Set] Initiate Oxygen Therapy Protocol Respiratory Care Routine Daily until discontinued starting 02/12/2021 [employer] Phone: Comment on above: Daily until disconti nued starting 02/12/2021 Oxygen therapy [Mini mum Data Set] Initiate Oxygen Therapy Protocol Respiratory Care Routine As Needed until discontinued starting 09/02/2022 [employer] Phone: Comment on above: As Needed until disc ontinued starting 09/02/2022 Oxygen therapy [Mini mum Data Set] Initiate Oxygen Therapy Protocol Respiratory Care Routine As Needed until discontinued starting 10/28/2022 [employer] Phone: Comment on above: As Needed until disc ontinued starting 10/28/2022 Oxygen therapy [Mini mum Data Set] Initiate Oxygen Therapy Protocol Respiratory Care Routine As Needed until discontinued starting 11/06/2023 [employer] Phone: Comment on above: As Needed until disc ontinued starting 11/06/2023 Phase I & II - meter ed glucose Phase I & II - metered glucose Point of Care Testing Routine As Needed until discontinued starting 02/12/2021 [employer] Phone: Comment on above: As Needed until disc ontinued starting 02/12/2021 End: 11-06-2023 , urine POCT , urine POCT Point of Care Testing Routine One Time for 1 Occurrences starting 11/06/2023 until 11/06/2023 [employer] Comment on above: One Time for 1 Occur rences starting 11/06/2023 until 11/06/2023 End: 09-03-2022 PREVIOUS SPECIMEN [employer] Phone: Comment on above: Once for 1 Occurrenc es starting 09/03/2022 until 09/03/2022 Spirometry panel Incentive marlen metry Respiratory Care Routine Every 2hr while awake until discontinued starting 09/02/2022 [employer] Phone: Comment on above: Every 2hr while awak e until discontinued starting 09/02/2022 Spirometry panel Incentive marlen metry RT Respiratory Care Routine Every 2hr while awake until discontinued starting 09/02/2022 [employer] Phone: Comment on above: Every 2hr while awak e until discontinued starting 09/02/2022 Spirometry panel Incentive marlen metry RT Respiratory Care Routine Every 2hr while awake until discontinued starting 09/03/2022 [employer] Phone: Comment on above: Every 2hr while awak e until discontinued starting 09/03/2022 Spirometry panel Incentive marlen metry Respiratory Care Routine Daily until discontinued starting 10/28/2022 [employer] Phone: Comment on above: Daily until disconti nued starting 10/28/2022 Immunizations Immunization Date Immunization Notes Care Provider Fa [facility] 10-24-2021 pneumococcal conjuga te vaccine, 13 valent Florin Burgos MD Work Phone: [facility] 04-24-2021 pneumococcal polysaccharide vaccine, 23 valent Florin Burgos MD Work Phone: [facility] 01-08-2017 pneumococcal polysaccharide vaccine, 23 valkaylie Burgos MD Work Phone: [facility] Payers Date Payer Category Payer Private Health Insurance [employer] [id number] 2023 Unknown [employer] [id number] 2023-Present [address] [place] [address] [id number] 2023 Unknown [id number]. [id number] 2001 Medicare [id number] [id number]. [id number] 2001 Medicare [id number] 1.2.840.281276.1.13.239.2. [id number] 1959 Medicare [id number] [id number]. [id number] 1958 Unknown [id number] 2.16.840.1.805739.3.579.2. 177 1958 Unknown [id number] 2.16.840.1.330607.3.579.2. 593 1958 Unknown [id number] 2.16.840.1.533959.3.579.2. 593 1958 Unknown [id number] 2.16.840.1.323451.3.579.2. 593 1958 Unknown [id number] 2.16.840.1.785393.3.579.2. 593 1958 Unknown [id number] 2.16.840.1.429847.3.579.2. 593 1958 Unknown [id number] 2.16.840.1.011366.3.579.2. 593 1958 Unknown [id number] 2.16.840.1.264394.3.579.2. 593 1958 Unknown [id number] 2.16.840.1.972109.3.579.2. 593 1958 Unknown [id number] 2.16.840.1.546545.3.579.2. 593 1958 Unknown [id number] 2.16.840.1.571047.3.579.2. 593 1958 Unknown [id number] 2.16.840.1.210190.3.579.2. 593 1958 Unknown [id number] 2.16.840.1.751099.3.579.2. 593 1958 Unknown [id number] 2.16.840.1.604557.3.579.2. 175 1958 Unknown [id number] 2.16.840.1.777652.3.579.2. 175 1958 Unknown [id number] 2.16.840.1.921769.3.579.2. 175 1958 Unknown [id number] 2.16.840.1.328286.3.579.2. 175 1958 Unknown [id number] 2.16.840.1.376741.3.579.2. 1259 1958 Unknown [id number] 2.16.840.1.727013.3.579.2. 1259 1958 Unknown [id number] 2.16.840.1.211794.3.579.2. 1259 1958 Unknown [id number] 2.16.840.1.313635.3.579.2. 1259 1958 Unknown [id number] 2.16.840.1.379964.3.579.2. 1259 1958 Unknown [id number] 2.16.840.1.210631.3.579.2. 1259 Self-pay Self Pay [id number] Social History Date Type Detail Facility Start: 01-29-2021 End: 04-10-2023 Tobacco smoking status [facility] Never smoker [employer] Phone: Start: 01-29-2021 End: 04-10-2023 Tobacco use and exposure Never used [employer] Phone: Start: 01-29-2021 End: 11-06-2023 Alcohol intake Ex-drinker (finding) [facility] Phone: Start: 1960 Sex Assigned At Not on file [facility] Phone: Start: 06-07-2022 End: 10-28-2022 Exposure to SARS-CoV-2 (event) Not sure [facility] Phone: Tobacco smoking status Never [facility] Start: 06-17-2022 End: 09-23-2024 Sex Assigned At Female [facility] Start: 1960 Sex Assigned At Female [facility] Start: 06-17-2022 History SDOH Alcohol Frequency 1 [employer] Work Phone: Start: 06-17-2022 End: 09-23-2024 History of Social function [employer] How often to you hav e a drink containing alcohol? Never [facility] Start: 08-30-2022 Gender identity Identifies as female gender (finding) [employer] Start: 08-13-2023 Sexual orientation Heterosexual (finding) [employer] Start: 10-23-2023 End: 09-23-2024 Alcohol intake Lifetime non-drinker (finding) [facility] Start: 04-09-2023 Alcohol Comment caffeine: 1-2 cups per day coffee, tea [facility] Medical Equipment Procedure Code Equipment Code Equipment Origin al Text Equipment Identifier Dates Spacer Spnl 7 De g [id number] Mm [facility] Mis - [id number] Start: 09-02-2022 Impl Spinal Disc Cerv Mobi-C [id number] - [id number] Start: 10-28-2022 Clinical Notes 03-21-2022 to 09-23-2024 Kim Cochran MA - 09/23/2024 3:20 PM ESTTelephone Encounter - [place] - 09/17/2024 11:02 AM ESTTelephone Encounter - Te[place] [place] - 09/17/2024 11:02 AM ESTDischarge InstructionsAttachments Note Date & Type Note Facility 09-23-2024 History of Present illness Narrative Images from the original note were not included. CHIEF COMPLAINT REASON FOR VISIT : Injections HPI: Kristin Null is a 63 y.o. female who presents for cervical injections. States she fell, while stretching, hit her right side of her head and her right knee. Her hip is also hurting and states pain is around 9/10. CURRENT MEDICATIONS: ALLERGIES/DISCONTINUE MEDICATIONS Current Outpatient Medications Medication Instructions ALFALFA PO Oral alpha tocopherol (Vitamin E) 1000 units capsule Every 24 hours ascorbic acid (VITAMIN C) 1,000 mg, Oral, Daily RT aspirin 81 MG EC tablet Every 24 hours b complex vitamins capsule 1 capsule, Oral, Daily RT beta carotene (VITAMIN A) 25,000 Units, Oral Biotin 1000 MCG chewable tablet Every 12 hours busPIRone (BUSPAR) 10 mg, Oral, Daily calcium carbonate (Os-Maritza) 1250 (500 Ca) MG tablet Every 12 hours calcium-vitamin D-vitamin K (Calcium + D + K) 750-500-40 MG-UNT-MCG tablet Every 12 hours carvedilol (COREG) 6.25 mg, Oral, 2 times daily cholecalciferol (VITAMIN D-3) 6,000 Units, Oral clonazePAM (KLONOPIN) 0.5 mg, Oral, 3 times daily coenzyme Q-10 100 MG capsule 1 capsule, Every 24 hours Dilantin 100 MG capsule TAKE 3 CAPSULES BY MOUTH AT BEDTIME Dilantin 30 mg, Oral, Daily, Total of 10 capsules per week. escitalopram (LEXAPRO) 10 mg, Oral, Every morning gabapentin (NEURONTIN) 800 mg, Oral, 4 times daily Garlic 2 MG capsule Oral glipiZIDE (GLUCOTROL) 5 mg, Oral, Daily LECITHIN PO Oral melatonin 3 MG tablet 3 tas Orally at bedtime Milk Thistle 150 MG capsule as directed Orally mometasone (Nasonex) 50 MCG/ACT nasal spray INSTILL 2 SPRAYS INTO EACH NOSTRIL EVERY MORNING Multiple Vitamin (Multi Vitamin) tablet Every 12 hours omega-3 (Fish Oil) 1000 MG capsule 1 capsule, Every 24 hours pioglitazone (Actos) 15 MG tablet Every 24 hours Prolia 60 mg, Subcutaneous, Once Red Yeast Rice Extract (RED YEAST RICE PO) Oral Respiratory Therapy Supplies (CareTouch CPAP & BIPAP Hose) misc BIPAP mask, heating tubing and supplies for 1 year. tiZANidine (ZANAFLEX) 4 mg, Oral, Daily tiZANidine (ZANAFLEX) 2 mg, Oral, Every 8 hours PRN traZODone (Desyrel) 50 MG tablet Take 3 Tablets (150mg( by mouth at bedtime Turmeric (CURCUMIN 95 PO) Oral zinc gluconate 50 MG tablet Every 24 hours Allergies Allergen Reactions Acetaminophen Other Reaction(s): Other (See Comments) Gastric ulcders Celecoxib Other Reaction(s): Other (See Comments), Unknown ulcers Codeine Nausea And Vomiting Other Reaction(s): Unknown Diclofenac-Misoprostol Other Reaction(s): Other (See Comments) Gastric ulcers Egg-Derived Products Swelling Other Reaction(s): Unknown Flu shot Swelling and redness at site Glutaral Other Reaction(s): Other (See Comments), Unknown Ulcers Nsaids Other Reaction(s): Other (See Comments), Unknown Other Other Reaction(s): GI Disturbance Other Reaction(s): Unknown Oxaprozin Hives GI ulcers Sulfa Antibiotics Hives and Rash blisters Wound Dressing Adhesive There are no discontinued medications. PAST MEDICAL HISTORY: SURGICAL/SOCIAL/FAMILY HISTORY DEPRESSION SCREEN: Past Medical History: Diagnosis Date Anxiety disorder 01/04/2009 B12 deficiency 05/21/2018 Backache 05/28/2012 Brachial neuritis or radiculitis 01/04/2009 Cervical stenosis of spinal canal 05/21/2018 Depression ([facility]) Dizziness 08/08/2013 Epilepsy ([facility]) 09/16/2017 Fatigue 05/21/2018 Headache 11/19/2011 History of being hospitalized 08/2005 [facility] x5 days for double pneumonia Insomnia 07/14/2018 Lack of coordination 08/08/2013 Malaise and fatigue 02/15/2014 ADRIANA (obstructive sleep apnea) 05/21/2018 Paresthesias 05/21/2018 Radicular pain in left arm 05/21/2018 Right shoulder pain Seizure disorder ([facility]/HCC) 06/07/2009 Sleep apnea 10/24/2015 Thyroid disease ([facility]) Vitamin D deficiency 01/25/2013 Past Surgical History: Procedure Laterality Date BACK SURGERY 1972, 1998 BIOPSY VAGINAL 2020 cyst CARPAL TUNNEL RELEASE Right 1985 CERVICAL DISC ARTHROPLASTY 10/28/2022 C3/4/5 Dr. Cruz CERVICAL FUSION 09/02/2022 C5-C6 - Dr. Cruz and 04/16 CHOLECYSTECTOMY CYST REMOVAL Right breast - 1989, 1990 KNEE SURGERY Left for meniscus and ACL tear OTHER SURGICAL HISTORY sialendoscopy PARATHYROIDECTOMY MT KNEE SCOPE,DIAGNOSTIC Bilateral MT LOBECTOMY TEMPOR CORTICOGRAPHY 2006 temporal lobectomy MT NEUROPLASTY &/TRANSPOSITION ULNAR NERVE ELBOW 1989 ROTATOR CUFF REPAIR 2015 arthroscopic torn rotator cuff and bicep SHOULDER SURGERY Right shoulder impingement SPINAL FUSION 1972, 1998 TOTAL SHOULDER ARTHROPLASTY Right 03/2015 TRIGGER FINGER RELEASE Right 2013 TUBAL LIGATION 1990 TUMOR REMOVAL 1981 from foot Social History Tobacco Use Smoking status: Never Smokeless tobacco: Never Substance Use Topics Alcohol use: Never Comment: caffeine: 1-2 cups per day coffee, tea Drug use: Never Family History Problem Relation Name Age of Onset Heart disease Mother Mother Heart disease Father Father Cancer Sibling Other (suicide) Nephew Depression: Not at risk (08/04/2020) Received from [employer], [employer] PHQ-2 Total Score: 0 REVIEW OF SYMPTOMS: Review of Systems Constitutional: Negative for chills, diaphoresis, fatigue and fever. HENT: Negative for ear pain, tinnitus and trouble swallowing. Eyes: Negative for photophobia and visual disturbance. Respiratory: Negative for cough and shortness of breath. Cardiovascular: Negative for palpitations and leg swelling. Gastrointestinal: Negative for abdominal pain and nausea. Genitourinary: Negative for difficulty urinating and urgency. Musculoskeletal: Negative for arthralgias, back pain, myalgias, neck pain and neck stiffness. Neurological: Negative for tremors, weakness, light-headedness and numbness. Psychiatric/Behavioral: Negative for agitation, confusion and suicidal ideas. OBJECTIVE: 09/23/2024 3:07 PM 07/05/2024 3:42 PM 06/15/2024 1:39 PM Vitals BMI 37.11 kg/m2 37.11 kg/m2 BSA (m2) 1.91 m2 1.91 m2 Systolic 168 130 Diastolic 89 80 Heart Rate 75 Height (in) 5' Weight (lb) 190 190 Visit Report Report Report EXAM: Neurological Exam Mental Status Awake, alert and oriented to person, place and time. Oriented to person, place and time. Recent and remote memory are intact. Speech is normal. Language is fluent with no aphasia. Attention and concentration are normal. Cranial Nerves CN II: Visual acuity is normal. Visual suarez full to confrontation. CN III, IV, : Extraocular movements intact bilaterally. Normal lids and orbits bilaterally. Pupils equal round and reactive to light bilaterally. CN V: Facial sensation is normal. CN VII: Full and symmetric facial movement. CN VIII: Hearing is normal. CN XII: Tongue midline without atrophy or fasciculations. Motor Normal muscle bulk throughout. Normal muscle tone. Right Left Wrist flexion 5 5 Wrist extension 5 5 Right Left Deltoid 5 5 Biceps 5 5 Triceps 5 5 Wrist flexor 5 5 Wrist extensor 5 5 Glutei 5 5 Iliopsoas 5 5 Quadriceps 5 5 Gastrocnemius 5 5 Anterior tibialis 5 5 Posterior tibialis 5 5 Sensory Light touch is normal in upper and lower extremities. Pinprick is normal in upper and lower extremities. Vibration is normal in upper and lower extremities. Reflexes Right Left Brachioradialis 2+ 2+ Biceps 2+ 2+ Patellar 2+ 2+ Achilles 2+ 2+ Right Plantar: downgoing Left Plantar: downgoing Right pathological reflexes: Roberto's absent. Ankle clonus absent. Left pathological reflexes: Roberto's absent. Ankle clonus absent. Coordination [id number], rapid alternating movements and [id number] normal bilaterally without dysmetria. Gait Normal casual, toe, heel and tandem gait. Romberg is absent. PROCEDURE: Brachial Plexus injection After explaining the risks, complications, and benefits of the procedure, the patient was seated in the chair. Allergies were reviewed, the consent was signed. The bilateral region posterior to the clavicle is identified and the most tender area is marked for injection then cleaned using sterile technique, and surface anesthetic; a 25 gauge 1 1/2 spinal needle was advanced and the patient received 3 cc of Bupivacaine 0.50% and 1 cc Dexamethasone 4mg. The needle was removed. The patient tolerated the procedure well and without complications. A Band-Aid dressing was applied on the injection site. Ultrasound images were placed in the media folder. Bursa Injection After explaining the risks, complications, and benefits of the procedure, the patient leaned over the exam table. Allergies were reviewed, the consent was signed. After palpating the rightgreater trochanter and identifying the most tender area in the bursa, using sterile technique, and surface anesthetic; a 25 gauge 1 1/2 spinal needle was advanced to make contact with the greater trochanter. The needle was then withdrawn about 1 mm. The patient received an injection of 2 cc of Sensorcaine 0.50% and0.5 cc Dexamethasone 4mg in a fan-like distribution. The needle was removed. A Band-Aid dressing was applied on the injection site.Ultrasound images were placed in the media folder. ASSESSMENT AND PLAN: Diagnoses and all orders for this visit: Chronic insomnia Increase traZODone (Desyrel) 100 MG tablet; Take 2 tablets (200 mg) by mouth at bedtime 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 Continue mometasone (Nasonex) 50 MCG/ACT nasal spray; Administer 2 sprays into each nostril Daily Focal epilepsy (CMS/HCC) Continue Dilantin 100 MG capsule; TAKE 3 CAPSULES BY MOUTH AT BEDTIME Seizure disorder (CMS/HCC) Continue Dilantin 30 MG capsule; Take 1 capsule (30 mg) by mouth Daily Total of 10 capsules per week. Cervical radiculopathy: Continue gabapentin 800 mg QID PT trial if no improvement. Cervical injections as needed Complex partial seizure with impairment of consciousness (CMS/HCC): counseled the patient on the possible side effects and interactions of medications. 1. Chronic insomnia - traZODone (Desyrel) 100 MG tablet; Take 2 tablets (200 mg) by mouth at bedtime Dispense: 60 tablet; Refill: 11 2. 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 - mometasone (Nasonex) 50 MCG/ACT nasal spray; Administer 2 sprays into each nostril Daily Dispense: 18 g; Refill: 11 3. Focal epilepsy (CMS/HCC) - gabapentin (Neurontin) 800 MG tablet; Take 1 tablet (800 mg) by mouth in the morning and 1 tablet (800 mg) at noon and 1 tablet (800 mg) in the evening and 1 tablet (800 mg) before bedtime. Dispense: 120 tablet; Refill: 3 4. Other nerve root and plexus disorders (Primary) - bupivacaine (Marcaine) 0.5 % injection 5 mg - dexAMETHasone sod phos (Decadron) injection 4 mg I will bring her back in 6-8 weeks to see if she has received 50% or greater pain relief and at that time I will repeat the injections if needed. 5. Trochanteric bursitis, right hip - bupivacaine (Marcaine) 0.5 % injection 5 mg - dexAMETHasone sod phos (Decadron) injection 4 mg I will bring her back in 6-8 weeks to see if she has received 50% or greater pain relief and at that time I will repeat the injections if needed. documented in this encounter [facility] 09-17-2024 Note Psych Progress Note Time In: 1130 Time Out: 1228 HPI Present at Visit: patient Location of Service: Patient Location: Home; Provider Location: Home Office Current Presenting Symptoms/Problems: Trauma: No trauma noted Depression =3-4/10; Anxiety = 4-5/10; Pain = 5-6/10 (right knee) Patient said that on 09/09/24, she fell off the bed while doing her stretches and injured her right knee. She has not sought medical treatment and said that it is painful when she bears weight on her right leg. Patient denied any swelling and she said she put on her mother's compression stockings today and her knee feels much better. She said she has a neurology appointment next week and she will talk to neurologist about this. Patient said sibling gathering to visit with her brother that was in town (Marco A) went OK, but she said Marco A kept making negative comments to her brother diagnosed with dementia (Oskar) regarding his inability to recall. Patient said a number of siblings had to tell Marco A to cease and desist on the negative comments to Oskar about his memory problems. Patient said she did not visit with Marco A any other time because of his behavior. Patient said she continues to struggle to get her prescription of gabapentin completely filled due to medication shortages. Patient also learned she was a victim of insurance fraud and she was provided with a new Medicare number, but she was instructed to wait until 09/29/24 to begin using the new number. Patient said she has contacted both the disability insurance hearing officer as well as the individual handling the medical payments of the change. Patient returned to [employer] and she is enjoying it. Patient said spouse has been working 9-10 hour days, but he has a week's vacation 09/26-10/03. Patient said that he is now trying to make travel plans, and is encountering difficulties doing this. Patient said she is letting him handle this rather than trying to take control. Individualized Service Plan (ISP): Treatment Plan Revision Date: 01/01/24 Review Date: 01/01/25 Concerns Referred/Deferred: Medical pain management Service Provider: Rosalba Gregorio, Ph.D. Service Frequency: 4-6 Weeks Patient's Needs: depression, anxiety, nonpharmacological pain management Strengths or Assets: Patient is engaged in treatment and motivated Patient's Stated Goals: I want to stay on track In opioid treatment or medication-assisted treatment?: No Goal (Required): Reduce Psychiatric Distress Required Objective: Patient will achieve/maintain a PHQ-9 score of Mild (0-4) over the next year. Custom Objective: Patient will report a depression score <= 4/10 for 3 consecutive sessions Custom Objective: Patient will report an anxiety score <= 3/10 for 3 consecutive sessions Custom Objective: Patient will learn and utilize at least 2 nonpharmacological pain management strategies in 12 months Signed: Rosalba Gregorio, Ph.D. 01/01/2024 Progress Toward ISP Goals/Objectives: Depression <=4; Anxiety > 3 Therapeutic Interventions Provided: Assessed Mood, Assessed Thinking, Assessed Safety, Cognitive Behavioral Therapy, Psychoeducation, Supportive Psychotherapy, and Symptoms monitoring Reviewed symptoms and events since last session. Patient given time to review recent fall and knee pain. She was encouraged to discuss during next medical appointment. Patient also given time to review sibling gathering and we processed her reaction to Marco A's frustration with Oskar and his memory problems and the need for her older brothers to confront Marco A and tell him to stop. Patient also initiated positive reaction to returning to [employer] and she was provided with encouragement and support. Patient also given time to process frustration that spouse waited until last minute to try to schedule travel plans and her decision to adhere to boundary and avoid taking control of the situation. Finally, patient given time to review reaction to in-laws' scheduling Thanksgiving plans late and that patient will not be able to attend because she already committed to spending it with Oskar and his spouse. Patient provided with encouragement and support. Response to Intervention: Agreeable Overall Assessment of Progress: No change Mental Status Exam Level of Alertness: alert Appearance: appears stated age, clean, dressed appropriately, and healthy Eye Contact: normal Build/Stature: normal weight and normal height Attitude Toward Examiner: cooperative and pleasant Behavior: normal Speech: clear, coherent reciprocal, lively, normal, normal pitch, normal rate, normal rhythm, and normal volume Language: expressive normal and receptive normal Mood: anxious and irritable Affect: appropriate, broad, congruent, full, and stable Thought Process: coherent, goal-directed, linear, logical, normal, and relevant Thought Content: intact, no delusions, no depersonalization, no derealization, no hallucinations, no homicidal guilherme (more content not included)... [facility] 09-17-2024 Telephone encounter Note Patient left voicemail requesting refill of Clondazepam be sent to [facility] in [place] please. [facility] 09-17-2024 Miscellaneous Notes Patient left voicemail requesting refill of Clondazepam be sent to [facility] in [place] please. 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 She is trying to take some breaks, but she is doing too much in one day. Patient said her spouse has been working a lot and that he has been doing 9-10 hour days for weeks. She said that he told her he would not be working this weekend. Patient said her brother from [place] is visiting because he wanted to determine for himself how much their brother has declined cognitively. Patient said some of her siblings will be gathering this Friday (no nephews or nieces invited) and she is fretting about what dish she is going to take as well as being excluded from conversations that her siblings have amongst themselves (she usually socializes with nephews and nieces during family gatherings). Patient said she is only getting about 6-7 hours of sleep during this past week because she is worrying about this get-together. Patient said she is seriously contemplating singing in the [employer] choir for the holidays. She said that they already started practicing, but she is confident that she could join them. Individualized Service Plan (ISP): Treatment Plan Revision Date: 01/01/24 Review Date: 01/01/25 Concerns Referred/Deferred: Medical pain management Service Provider: Rosalba Gregorio, Ph.D. Service Frequency: 4-6 Weeks Patient's Needs: depression, anxiety, nonpharmacological pain management Strengths or Assets: Patient is engaged in treatment and motivated Patient's Stated Goals: I want to stay on track In opioid treatment or medication-assisted treatment?: No Goal (Required): Reduce Psychiatric Distress Required Objective: Patient will achieve/maintain a PHQ-9 score of Mild (0-4) over the next year. Custom Objective: Patient will report a depression score <= 4/10 for 3 consecutive sessions Custom Objective: Patient will report an anxiety score <= 3/10 for 3 consecutive sessions Custom Objective: Patient will learn and utilize at least 2 nonpharmacological pain management strategies in 12 months Signed: Rosalba Gregorio, Ph.D. 01/01/2024 Progress Toward ISP Goals/Objectives: Depression <=4; Anxiety > 3 Therapeutic Interventions Provided: Assessed Mood, Assessed Thinking, Assessed Safety, Cognitive Behavioral Therapy, Psychoeducation, Supportive Psychotherapy, and Symptoms monitoring Reviewed symptoms and events since last session. Patient given time to review attempts to clean and she acknowledged that she was doing too much in a day. Patient given positive feedback on taking breaks; we explored how she could reduce cleaning rooms into smaller tasks (e.g., one day do sink and mirror in bathroom, toilet another day, shower another day). We also spent time discussing patient's worries about pending sibling gathering and brainstormed ways patient could cope. Patient open and receptive to discussion. We also explored ways patient may set limits for herself with respect to singing in the choir, and patient given positive feedback, encouragement, and support for already identifying issues that could present problems for her (e.g., having to carry a stack of music books, needing assistance going up or down stairs). Response to Intervention: Agreeable Overall Assessment of Progress: Progressing Mental Status Exam Level of Alertness: alert Appearance: appears stated age, clean, dressed appropriately, and healthy Eye Contact: normal Build/Stature: normal weight and normal height Attitude Toward Examiner: cooperative and pleasant Behavior: normal Speech: clear, coherent reciprocal, lively, normal, normal pitch, normal rate, normal rhythm, and normal volume Language: expressive normal and receptive normal Mood: euthymic and anxious Affect: appropriate, broad, congruent, full, and stable Thought Process: coherent, goal-directed, linear, logical, normal, and relevant Thought Content: intact, no delusions, no depersonalization, no derealization, no hallucinations, no homicidal ideation, no illusions, no preoccupations, and no suicidal ideation Orientation: oriented to person, oriented to place, and oriented to time Attention and Concentration: able to appropriately shift attention, able to focus, able to sustain attention, and intact Memory: able to comment on events, conversation content appropriate, and intact Estimated Intelligence: above average Insight: intact and true insight Judgement: social judgment intact Reliability: very reliable Plan: Pace physical activities You can leave the alliance party early Try the choir. It is volunteer and if it isn't working for you, you can stop Pat (more content not included)... [facility] 07-30-2024 Note Psych Progress Note Time In: 1138 Time Out: 1233 HPI Present at Visit: patient Location of Service: Patient Location: Home; Provider Location: Home Office Current Presenting Symptoms/Problems: Trauma: No trauma noted Depression =3/10; Anxiety = 2/10; Pain = 3-4/10 (left side; both hands) Patient said that her stepson will not be moving to [place] and that he is still living with patient and spouse. Patient said he finally got a new job (working at [employer]). Patient said she fired the maid because the maid was not thoroughly cleaning. Patient is trying to find a new maid (person patient knows or trusted person knows) and that patient is trying to use the pacing strategy to keep up on housework. She said she is only doing what she can and is not holding herself to the high standards she once did. Patient said gathering with siblings to celebrate older brother's wedding anniversary went well. She said her brother did well at the alliance party (he is in cognitive decline) and she believes some of her siblings are coming to terms with his decline. Patient said she and spouse went on vacation for 5 days at a B in [place], [place]. She said they really enjoyed themselves and that she and spouse took an 18-mile bike ride one day. Patient said she had a hard time shifting gears with her hands; they are now exploring electric bicycles for patient. Patient said about 2 weeks ago she began to experience frequent sneezing and nasal congestion. She believes it is allergies + air dryness and she has been trying to manage the symptoms through the use of essential oils. Individualized Service Plan (ISP): Treatment Plan Revision Date: 01/01/24 Review Date: 01/01/25 Concerns Referred/Deferred: Medical pain management Service Provider: Rosalba Gregorio, Ph.D. Service Frequency: 4-6 Weeks Patient's Needs: depression, anxiety, nonpharmacological pain management Strengths or Assets: Patient is engaged in treatment and motivated Patient's Stated Goals: I want to stay on track In opioid treatment or medication-assisted treatment?: No Goal (Required): Reduce Psychiatric Distress Required Objective: Patient will achieve/maintain a PHQ-9 score of Mild (0-4) over the next year. Custom Objective: Patient will report a depression score <= 4/10 for 3 consecutive sessions Custom Objective: Patient will report an anxiety score <= 3/10 for 3 consecutive sessions Custom Objective: Patient will learn and utilize at least 2 nonpharmacological pain management strategies in 12 months Signed: Rosalba Gregorio, Ph.D. 01/01/2024 Progress Toward ISP Goals/Objectives: Depression <=4; Anxiety <=3 Therapeutic Interventions Provided: Assessed Mood, Assessed Thinking, Assessed Safety, Cognitive Behavioral Therapy, Psychoeducation, Supportive Psychotherapy, and Symptoms monitoring Reviewed symptoms and events since last session. Patient given time to review recent medical appointment with orthopedic surgeon as well as recent physical symptoms. We also processed a number of interpersonal issues involving her stepson, siblings, and terminating [employer] service. Patient also given time to discuss spouse's continued plans to retire working from major employer at the end of the year and her worries about pending dental appointment. Patient provided with positive feedback, encouragement and support. Response to Intervention: Agreeable Overall Assessment of Progress: Progressing Mental Status Exam Level of Alertness: alert Appearance: appears stated age, clean, dressed appropriately, and healthy Eye Contact: normal Build/Stature: normal weight and normal height Attitude Toward Examiner: cooperative and pleasant Behavior: normal Speech: clear, coherent reciprocal, lively, normal, normal pitch, normal rate, normal rhythm, and normal volume Language: expressive normal and receptive normal Mood: euthymic and anxious Affect: appropriate, broad, congruent, full, and stable Thought Process: coherent, goal-directed, linear, logical, normal, and relevant Thought Content: intact, no delusions, no depersonalization, no derealization, no hallucinations, no homicidal ideation, no illusions, no preoccupations, and no suicidal ideation Orientation: oriented to person, oriented to place, and oriented to time Attention and Concentration: able to appropriately shift attention, able to focus, able to sustain attention, and intact Memory: able to comment on events, conversation content appropriate, and intact Estimated Intelligence: above average Insight: intact and true insight Judgement: social judgment intact Reliability: very reliable Plan: Pace physical activities Dental appt replacing crown on 08/02/24 Dental appt filling 2 cavities week of 08/09 Patient aware she can contact this provider if sooner appt needed This visit was conducted [id number] with the use of audio and video technology using [employer]. and the pat (more content not included)... [facility] 06-25-2024 Note Psych Progress Note Time In: 1230 Time Out: 1328 HPI Present at Visit: patient Location of Service: Patient Location: Home; Provider Location: Home Office Current Presenting Symptoms/Problems: Trauma: No trauma noted Depression =2-3/10; Anxiety = 3/10; Pain = 3-4/10 (left side; both hands) Patient said that her stepson has not yet moved to [place] (he did have going away alliance party), but she did not feel comfortable talking about it today because he was home. She denied having need to discuss it immediately and said it could wait. 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 Patient said she has a cry session on the 14-year anniversary of her mother's . She said her siblings were texting back and forth that day, but patient did not reply. She said her sister asked her why she didn't respond and patient said she replied that she dealt with the day her own way. Patient said she cleaned her bathroom and bedroom over 2 days. She said she paced the cleaning, did stretches before and after each task, and she said she did not have negative consequences doing this. Patient said that she and some of her siblings will be gathering tomorrow to celebrate her brother and [id number]'s wedding anniversary. She said her [id number] initiated this gathering because patient's brother's cognitive functioning is declining rapidly. He has been diagnosed with dementia, but she said some of her siblings are in denial that he has it. Individualized Service Plan (ISP): Treatment Plan Revision Date: 01/01/24 Review Date: 01/01/25 Concerns Referred/Deferred: Medical pain management Service Provider: Rosalba Gregorio, Ph.D. Service Frequency: 4-6 Weeks Patient's Needs: depression, anxiety, nonpharmacological pain management Strengths or Assets: Patient is engaged in treatment and motivated Patient's Stated Goals: I want to stay on track In opioid treatment or medication-assisted treatment?: No Goal (Required): Reduce Psychiatric Distress Required Objective: Patient will achieve/maintain a PHQ-9 score of Mild (0-4) over the next year. Custom Objective: Patient will report a depression score <= 4/10 for 3 consecutive sessions Custom Objective: Patient will report an anxiety score <= 3/10 for 3 consecutive sessions Custom Objective: Patient will learn and utilize at least 2 nonpharmacological pain management strategies in 12 months Signed: Rosalba Gregorio, Ph.D. 01/01/2024 Progress Toward ISP Goals/Objectives: Depression <=4; Anxiety <=3 Therapeutic Interventions Provided: Assessed Mood, Assessed Thinking, Assessed Safety, Cognitive Behavioral Therapy, Psychoeducation, Supportive Psychotherapy, and Symptoms monitoring Reviewed symptoms and events since last session. Patient given time to process mourning her mother's anniversary. Patient also reviewed plans to have siblings get-together and also reaction to her older brother's cognitive decline. Patient also initiated discussion of use of pacing strategy to clean and positive outcomes as a result. Patient provided with positive feedback, encouragement and support. Response to Intervention: Agreeable Overall Assessment of Progress: Progressing Mental Status Exam Level of Alertness: alert Appearance: appears stated age, clean, dressed appropriately, and healthy Eye Contact: normal Build/Stature: normal weight and normal height Attitude Toward Examiner: cooperative and pleasant Behavior: normal Speech: clear, coherent reciprocal, lively, normal, normal pitch, normal rate, normal rhythm, and normal volume Language: expressive normal and receptive normal Mood: anxious, irritable, and mourning Affect: appropriate, broad, congruent, full, and stable Thought Process: coherent, goal-directed, linear, logical, normal, and relevant Thought Content: intact, no delusions, no depersonalization, no derealization, no hallucinations, no homicidal ideation, no illusions, no preoccupations, and no suicidal ideation Orientation: oriented to person, oriented to place, and oriented to time Attention and Concentration: able to appropriately shift attention, able to focus, able to sustain attention, and intact Memory: able to comment on events, conversation content appropriate, and intact Estimated Intelligence: above average Insight: intact and true insight Judgement: social judgment intact Reliability: very reliable Plan: Pace physical activities Gathering with siblings 06/26/24 Neurology appt 07/05/24 Ortho appt (F/U with hands) 07/13/24 Patient aware she can contact this provider if sooner appt needed This visit was conducted [id number] with the use of audio and video technology using [employer] and the patient was notified that using 3rd alliance party telecommunication application ([employer]) is HIPAA compliant (more content not included)... [facility] 05-28-2024 Note Psych Progress Note Time In: 1231 Time Out: 1330 HPI Present at Visit: patient Location of Service: Patient Location: Home; Provider Location: Home Office Current Presenting Symptoms/Problems: Trauma: No trauma noted Depression =4-5/10; Anxiety = 5/10; Pain = 3-4/10 (left side; both hands) Patient said that she has attended 2 funerals since 05/15/24 (one for a friend's mother and the other for a good friend's spouse). She said that this got her thinking about her own and she told spouse that she would like to donate her head to science (she also wants to donate viable organs). Patient had appointment with orthopedic surgeon on 05/18, and she informed him of the two falls she had and pain in shoulder and hands. She said that he did not believe she did further damage. Patient said that she attended PT 3 days ago and that they taped her left wrist and she felt some relief. She said she attended PT yesterday and both wrists were taped (she is wearing the tape today). Patient said she had headaches for 2.5 weeks. She got new glasses, and she said she felt as if the glasses were always smudged or dirty. Patient went back to spinneret person and learned that the numbers imprinted on the lenses were too refined. The lenses were redone and she said the headaches have remitted. Patient learned from [id number] that her jesseeon intends to move to [place] and live with his mother's cousin. Patient said that he had told patient and spouse that he intended to move to [place], but then there was not further discussion. Patient asked spouse if he knew his son intended to move to [place], and he said he only learned about it 2 days before she confronted him. Patient said she and spouse have plans to move and downsize, and she said her antwon will not be moving with them and she wants to make sure that antwon understands this because she suspects he will want to move back home shortly after moving down to [place] (patient used to be friends with the woman he will be living with). Individualized Service Plan (ISP): Treatment Plan Revision Date: 01/01/24 Review Date: 01/01/25 Concerns Referred/Deferred: Medical pain management Service Provider: Rosalba Gregorio, Ph.D. Service Frequency: 4-6 Weeks Patient's Needs: depression, anxiety, nonpharmacological pain management Strengths or Assets: Patient is engaged in treatment and motivated Patient's Stated Goals: I want to stay on track In opioid treatment or medication-assisted treatment?: No Goal (Required): Reduce Psychiatric Distress Required Objective: Patient will achieve/maintain a PHQ-9 score of Mild (0-4) over the next year. Custom Objective: Patient will report a depression score <= 4/10 for 3 consecutive sessions Custom Objective: Patient will report an anxiety score <= 3/10 for 3 consecutive sessions Custom Objective: Patient will learn and utilize at least 2 nonpharmacological pain management strategies in 12 months Signed: Rosalba Gregorio, Ph.D. 01/01/2024 Progress Toward ISP Goals/Objectives: Depression <=4; Anxiety >3 Therapeutic Interventions Provided: Assessed Mood, Assessed Thinking, Assessed Safety, Cognitive Behavioral Therapy, Psychoeducation, Supportive Psychotherapy, and Symptoms monitoring Reviewed symptoms and events since last session. Patient given time to review grief issues and her thoughts about donating her body to science. Patient also given time to process her frustration related to getting Dilantin as well as recent medical appointments. Patient initiated discussion of learning about son's plans to move and her worries about his expectations that he can visit every weekend or return home if he does not like living with this woman. We explored how she may be able to discuss this with spouse. Patient provided with encouragement and support. Response to Intervention: Agreeable Overall Assessment of Progress: No change Mental Status Exam Level of Alertness: alert Appearance: appears stated age, clean, dressed appropriately, and healthy Eye Contact: normal Build/Stature: normal weight and normal height Attitude Toward Examiner: cooperative and pleasant Behavior: normal Speech: clear, coherent reciprocal, lively, normal, normal pitch, normal rate, normal rhythm, and normal volume Language: expressive normal and receptive normal Mood: anxious, irritable, and grief Affect: appropriate, broad, congruent, full, and stable Thought Process: coherent, goal-directed, linear, logical, normal, and relevant Thought Content: intact, no delusions, no depersonalization, no derealization, no hallucinations, no homicidal ideation, no illusions, no preoccupations, and no suicidal ideation Orientation: oriented to person, oriented to place, and oriented to time Attention and Concentration: able to appropriately shift attention, able to focus, able to sustain attention, and intact Memory: able to comme (more content not included)... [facility] 05-03-2024 Note Psych Progress Note Time In: 1204 Time Out: 1259 HPI Present at Visit: patient Location of Service: Patient Location: Home; Provider Location: Home Office Current Presenting Symptoms/Problems: Trauma: No trauma noted Depression =2-3/10; Anxiety = 3-4/10; Pain = 4/10 (left side) Patient said that on 04/27 or 04/28, she tripped over a hose while watering the plants and landed on her left knee and hand. She was worried that she may have experienced whiplash, but she said her neck feels fine. Patient said that on the evening of 05/01, she was doing her normal stretches in the kitchen using the stool that she always uses and she fell off of the stool. She said that she fell on her left side and that her head felt weird, but she said the feeling passed. Patient said she has been icing her knee and using pain cream. She said the pain is mostly in her left trapezoid area, lumbar region, and left hip. Patient said she is also taking an additional tablet (2 or 4 mg, patient cannot recall) of tizanidine in the morning. She has not sought medical care. Patient and spouse met with financial service representative again this past week and patient said she feels more at ease because her spouse said that he did not intend to retire until at least the age of 65. Individualized Service Plan (ISP): Treatment Plan Revision Date: 01/01/24 Review Date: 01/01/25 Concerns Referred/Deferred: Medical pain management Service Provider: Rosalba Gregorio, Ph.D. Service Frequency: 4-6 Weeks Patient's Needs: depression, anxiety, nonpharmacological pain management Strengths or Assets: Patient is engaged in treatment and motivated Patient's Stated Goals: I want to stay on track In opioid treatment or medication-assisted treatment?: No Goal (Required): Reduce Psychiatric Distress Required Objective: Patient will achieve/maintain a PHQ-9 score of Mild (0-4) over the next year. Custom Objective: Patient will report a depression score <= 4/10 for 3 consecutive sessions Custom Objective: Patient will report an anxiety score <= 3/10 for 3 consecutive sessions Custom Objective: Patient will learn and utilize at least 2 nonpharmacological pain management strategies in 12 months Signed: Rosalba Gregorio, Ph.D. 01/01/2024 Progress Toward ISP Goals/Objectives: Depression <=4; Anxiety >3 Therapeutic Interventions Provided: Assessed Mood, Assessed Thinking, Assessed Safety, Cognitive Behavioral Therapy, Psychoeducation, Supportive Psychotherapy, and Symptoms monitoring Reviewed symptoms and events since last session. Patient given time to review recent falls and how she is managing. Patient said she has PT appointment later today and she intends to discuss with physical therapist. Patient also intends to inform orthopedic surgeon during her appointment on 05/18/24. Patient also given time to process her reaction to meeting with financial service representative and spouse's decision to remain working until at least the age of 65. She reported having significant worries about how they would be able to pay for her medications and medical care if he retired early. Patient also given time to review issues with various family members and we processed her reactions. Patient was provided with encouragement and support. Response to Intervention: Agreeable Overall Assessment of Progress: No change Mental Status Exam Level of Alertness: alert Appearance: appears stated age, clean, dressed appropriately, and healthy Eye Contact: normal Build/Stature: normal weight and normal height Attitude Toward Examiner: cooperative and pleasant Behavior: normal Speech: clear, coherent reciprocal, lively, normal, normal pitch, normal rate, normal rhythm, and normal volume Language: expressive normal and receptive normal Mood: anxious Affect: appropriate, broad, congruent, full, and stable Thought Process: coherent, goal-directed, linear, logical, normal, and relevant Thought Content: intact, no delusions, no depersonalization, no derealization, no hallucinations, no homicidal ideation, no illusions, no preoccupations, and no suicidal ideation Orientation: oriented to person, oriented to place, and oriented to time Attention and Concentration: able to appropriately shift attention, able to focus, able to sustain attention, and intact Memory: able to comment on events, conversation content appropriate, and intact Estimated Intelligence: above average Insight: intact and true insight Judgement: social judgment intact Reliability: very reliable Plan: Talk to physical therapist about recent falls during PT appt later today Orthopedic F/U 05/18/24; inform him of recent falls Pace physical activities We agreed to have intersession interval return to about 4 weeks and patient aware she can contact this provider if sooner appt needed This visit was conducted [id number] with the use of audio and video technology using [employer]. and the patient was notif (more content not included)... [facility] 04-15-2024 Note Psych Progress Note Time In: 1305 Time Out: 1400 HPI Present at Visit: patient Location of Service: Patient Location: Home; Provider Location: [facility] Office Current Presenting Symptoms/Problems: Trauma: No trauma noted Depression =2/10; Anxiety = 4/10; Pain = 3-4/10 (both hands) Patient was wiping her hands on a towel at the onset of the session, stating that physical therapist recommended she do this regularly to try to desensitize her hand. She completed electrical stimulation on 04/13/24. Patient said that her brother is currently in [place] for son's white coat ceremony and that he will begin chemotherapy when he returns. Patient said she spoke to her nephew and expressed her regret that she could not attend. Patient said she was able to successfully drive [facility] [place] and that she intends to continue making short driving trips. Patient said she and spouse went to financial service representative to discuss spouse's eventual chcf and she said she felt some relief after the meeting. Patient said that she is able to do laundry as long as she paces it. She said she continues to be frustrated because she has been restricted from riding bike (cervical issues), which has triggered thoughts of restrictions that were imposed upon her when she had frequent seizures. Individualized Service Plan (ISP): Treatment Plan Revision Date: 01/01/24 Review Date: 01/01/25 Concerns Referred/Deferred: Medical pain management Service Provider: Rosalba Gregorio, Ph.D. Service Frequency: 4-6 Weeks Patient's Needs: depression, anxiety, nonpharmacological pain management Strengths or Assets: Patient is engaged in treatment and motivated Patient's Stated Goals: I want to stay on track In opioid treatment or medication-assisted treatment?: No Goal (Required): Reduce Psychiatric Distress Required Objective: Patient will achieve/maintain a PHQ-9 score of Mild (0-4) over the next year. Custom Objective: Patient will report a depression score <= 4/10 for 3 consecutive sessions Custom Objective: Patient will report an anxiety score <= 3/10 for 3 consecutive sessions Custom Objective: Patient will learn and utilize at least 2 nonpharmacological pain management strategies in 12 months Signed: Rosalba Gregorio, Ph.D. 01/01/2024 Progress Toward ISP Goals/Objectives: Depression <=4; Anxiety <=3 Therapeutic Interventions Provided: Assessed Mood, Assessed Thinking, Assessed Safety, Cognitive Behavioral Therapy, Psychoeducation, Supportive Psychotherapy, and Symptoms monitoring Reviewed symptoms and events since last session. Patient given time to review recent stressors and issues with family members. Patient initiated discussion of her insight that current restriction of no bicycle riding has triggered feelings of frustration, anxiety, and anger related to restrictions that were put on patient when she was having frequent seizures. We discussed ways to try to differentiate the situations and patient was open and receptive to discussion. Patient was provided with encouragement and support. Response to Intervention: Agreeable Overall Assessment of Progress: No change Mental Status Exam Level of Alertness: alert Appearance: appears stated age, clean, dressed appropriately, and healthy Eye Contact: normal Build/Stature: normal weight and normal height Attitude Toward Examiner: cooperative and pleasant Behavior: normal Speech: clear, coherent reciprocal, lively, normal, normal pitch, normal rate, normal rhythm, and normal volume Language: expressive normal and receptive normal Mood: anxious and fearful Affect: appropriate, broad, congruent, full, and stable Thought Process: coherent, goal-directed, linear, logical, normal, and relevant Thought Content: intact, no delusions, no depersonalization, no derealization, no hallucinations, no homicidal ideation, no illusions, no preoccupations, and no suicidal ideation Orientation: oriented to person, oriented to place, and oriented to time Attention and Concentration: able to appropriately shift attention, able to focus, able to sustain attention, and intact Memory: able to comment on events, conversation content appropriate, and intact Estimated Intelligence: above average Insight: intact and true insight Judgement: social judgment intact Reliability: very reliable Plan: Patient encouraged to agree to schedule some weekend trips with spouse this Summer This visit was conducted [id number] with the use of audio and video technology using [employer] and the patient was notified that using 3rd alliance party telecommunication application ([employer]) is HIPAA compliant. It was explained that the limits of confidentiality that exist during in-person sessions also apply for telepsychology sessions (i.e., where the patient indicates that he or she intends to harm self or others, the patient reports current child or elder abuse, or the p (more content not included)... [facility] 04-02-2024 Note Psych Progress Note Time In: 1030 Time Out: 1126 HPI Present at Visit: patient Location of Service: Patient Location: Home; Provider Location: Home Office Current Presenting Symptoms/Problems: Trauma: No trauma noted Depression =4/10; Anxiety = 2-3/10; Pain = 4/10 (left hand) Patient said that the gabapentin issue was resolved and she received her medication on time. Patient said that she recently has no motivation and is struggling to get out of bed in the morning. Patient said her sister visited for a week and stayed with patient and spouse. Patient said she and her sister did things every day; visiting people, exploring. Patient said her siblings had a alliance party for sister's visit, and their brother (1 year older than patient) disclosed that despite the treatment for prostrate cancer, his numbers on latest bloodwork were elevated. He told them that he had PET scan and spot observed on his brain. He told them the next step would probably be a CT scan. Patient said she has been driving more and that she intends to drive to [place] for medical appointment next week. Patient continues to receive PT on hand and she seems to be receiving electrical stimulation treatment. Patient said her niece having recurrence of cancer is going to do 5 weeks of radiation. Patient and spouse made decision to not go to nephew's white [employer] ceremony in [place] because spouse will not be able to get off of work. Individualized Service Plan (ISP): Treatment Plan Revision Date: 01/01/24 Review Date: 01/01/25 Concerns Referred/Deferred: Medical pain management Service Provider: Rosalba Gregorio, Ph.D. Service Frequency: 4-6 Weeks Patient's Needs: depression, anxiety, nonpharmacological pain management Strengths or Assets: Patient is engaged in treatment and motivated Patient's Stated Goals: I want to stay on track In opioid treatment or medication-assisted treatment?: No Goal (Required): Reduce Psychiatric Distress Required Objective: Patient will achieve/maintain a PHQ-9 score of Mild (0-4) over the next year. Custom Objective: Patient will report a depression score <= 4/10 for 3 consecutive sessions Custom Objective: Patient will report an anxiety score <= 3/10 for 3 consecutive sessions Custom Objective: Patient will learn and utilize at least 2 nonpharmacological pain management strategies in 12 months Signed: Rosalba Gregorio, Ph.D. 01/01/2024 Progress Toward ISP Goals/Objectives: Depression <=4; Anxiety <=3 Therapeutic Interventions Provided: Assessed Mood, Assessed Thinking, Assessed Safety, Cognitive Behavioral Therapy, Psychoeducation, Supportive Psychotherapy, and Symptoms monitoring Reviewed symptoms and events since last session. Patient given time to review visit from sister and various medical issues with relatives. She was given time to process worry about brother and niece's cancer treatments. We also reviewed patient's own medical treatments and she was provided with positive feedback on asserting and following through with prescriber office to get gabapentin prescription refilled in a timely fashion. Patient was provided with encouragement and support. Response to Intervention: Agreeable Overall Assessment of Progress: Progressing Mental Status Exam Level of Alertness: alert Appearance: appears stated age, clean, dressed appropriately, and healthy Eye Contact: normal Build/Stature: normal weight and normal height Attitude Toward Examiner: cooperative and pleasant Behavior: normal Speech: clear, coherent reciprocal, lively, normal, normal pitch, normal rate, normal rhythm, and normal volume Language: expressive normal and receptive normal Mood: anxious and fearful Affect: appropriate, broad, congruent, full, and stable Thought Process: coherent, goal-directed, linear, logical, normal, and relevant Thought Content: intact, no delusions, no depersonalization, no derealization, no hallucinations, no homicidal ideation, no illusions, no preoccupations, and no suicidal ideation Orientation: oriented to person, oriented to place, and oriented to time Attention and Concentration: able to appropriately shift attention, able to focus, able to sustain attention, and intact Memory: able to comment on events, conversation content appropriate, and intact Estimated Intelligence: above average Insight: intact and true insight Judgement: social judgment intact Reliability: very reliable Plan: No changes This visit was conducted [id number] with the use of audio and video technology using [employer] and the patient was notified that using 3rd [employer] party telecommunication application ([employer]) is HIPAA compliant. It was explained that the limits of confidentiality that exist during in-person sessions also apply for telepsychology sessions (i.e., where the patient indicates that he or she intends to harm self or others, the patient reports current child or elder abuse, or the (more content not included)... [facility] 03-11-2024 Note Psych Progress Note Time In: 1102 Time Out: 1202 HPI Present at Visit: patient Location of Service: Patient Location: Home; Provider Location: Home Office Current Presenting Symptoms/Problems: Trauma: No trauma noted Depression =4/10; Anxiety = 6-7/10; Pain = 3-4/10 (left hand) Patient said that on 02/03/24 she began using stronger bands and doing more challenging exercises for her left hand in physical therapy. She said that on 02/05/24, she noticed some swelling in the left hand and fingers. She said the swelling continued and her hand felt warm to the touch. She said she went to ED on 02/08/24 because she was unable to bend her fingers and the pain was becoming more severe (6-7/10). Patient said she was diagnosed with acute tendonitis and prescribed oxycodone. Patient said that they went to pharmacy to get prescription filled and pharmacist informed them of interaction between Dilantin and oxycodone and that pain medication would be ineffective. Patient able to get in and see hand surgeon on 02/10/24 who reportedly prescribed 20 mg prednisone and also gave patient injection in left knee (which had been bothering her). Patient returned to office the following week and surgeon instructed her to take 5 mg prednisone a day and to return to PT to focus on lessening the edema. Patient had another follow-up appointment with surgeon on 03/09/24 and he reportedly told her that he was happy with the progress and gave her recommendation to return to PT to resume hand strengthening exercises. Patient said she is very anxious because she has enough gabapentin to last her through 03/14/24. She said she had called neurology office 2X this week and pharmacy stated they have no prescription. Patient reportedly informed by pharmacy that out of pocket cost for medication will be $999. Individualized Service Plan (ISP): Treatment Plan Revision Date: 01/01/24 Review Date: 01/01/25 Concerns Referred/Deferred: Medical pain management Service Provider: Rosalba Gregorio, Ph.D. Service Frequency: 4-6 Weeks Patient's Needs: depression, anxiety, nonpharmacological pain management Strengths or Assets: Patient is engaged in treatment and motivated Patient's Stated Goals: I want to stay on track In opioid treatment or medication-assisted treatment?: No Goal (Required): Reduce Psychiatric Distress Required Objective: Patient will achieve/maintain a PHQ-9 score of Mild (0-4) over the next year. Custom Objective: Patient will report a depression score <= 4/10 for 3 consecutive sessions Custom Objective: Patient will report an anxiety score <= 3/10 for 3 consecutive sessions Custom Objective: Patient will learn and utilize at least 2 nonpharmacological pain management strategies in 12 months Signed: Rosalba Gregorio, Ph.D. 01/01/2024 Progress Toward ISP Goals/Objectives: Depression <=4; Anxiety >3 Therapeutic Interventions Provided: Assessed Mood, Assessed Thinking, Assessed Safety, Cognitive Behavioral Therapy, Psychoeducation, Supportive Psychotherapy, and Symptoms monitoring Reviewed symptoms and events since last session. Patient given time to review recent worsening and subsequent treatment of left hand. Patient then initiated discussion of her anxiety about not getting refill of gabapentin and her fears that she will have seizures if the medication is not refilled. We brainstormed what more she could do to address this problem. Patient also independently realized that she could try to do GoodRx and she thought she may have enough points to cover the cost of the medication. We agreed that patient would use this as her escape lilly if her attempts to resolve the issue today are unsuccessful (neurology office is reportedly closed on Fridays). Patient was provided with encouragement and support. Response to Intervention: Agreeable Overall Assessment of Progress: No change Mental Status Exam Level of Alertness: alert Appearance: appears stated age, clean, dressed appropriately, and healthy Eye Contact: normal Build/Stature: normal weight and normal height Attitude Toward Examiner: cooperative and pleasant Behavior: normal Speech: clear, coherent reciprocal, lively, normal, normal pitch, normal rate, normal rhythm, and normal volume Language: expressive normal and receptive normal Mood: anxious, fearful, and irritable Affect: appropriate, broad, congruent, full, and stable Thought Process: coherent, goal-directed, linear, logical, normal, and relevant Thought Content: intact, no delusions, no depersonalization, no derealization, no hallucinations, no homicidal ideation, no illusions, no preoccupations, and no suicidal ideation Orientation: oriented to person, oriented to place, and oriented to time Attention and Concentration: able to appropriately shift attention, able to focus, able to sustain attention, and intact Memory: able to comment on events, conversation content appropriate, a (more content not included)... [facility] 01-30-2024 Note Psych Progress Note Time In: 1130 Time Out: 1228 HPI Present at Visit: patient Location of Service: Patient Location: Home; Provider Location: [facility] Office Current Presenting Symptoms/Problems: Trauma: No trauma noted Depression = 2 /10; Anxiety = 4/10; Pain = 4-5/10 (left knee, left hip) Patient putting ice on left knee. She said it spontaneously started hurting 01/24-01/25 and she cannot identify any possible trigger for the pain. She attended PT 01/29/24 for her hand and therapist spent some time addressing the knee issue as well. He said they would spend some more time on the knee next session. Patient said her niece had the lumpectomy and she is awaiting word whether she will do only radiation therapy or whether chemotherapy will need to be administered as well. Patient said her cousin who had the aortic tear is back home, and he was told he will recover. Patient said she is trying to pace the housecleaning in between visits from the charhouse worker. Patient also said surgeon released her to drive and that she drove a couple of times with her spouse in the car. Patient said one drive was to [facility] via the highway and spouse was surprised she did it; he said she did fine. Patient asked him to drive home. Individualized Service Plan (ISP): Treatment Plan Revision Date: 01/01/24 Review Date: 01/01/25 Concerns Referred/Deferred: Medical pain management Service Provider: Rosalba Gregorio, Ph.D. Service Frequency: 4-6 Weeks Patient's Needs: depression, anxiety, nonpharmacological pain management Strengths or Assets: Patient is engaged in treatment and motivated Patient's Stated Goals: I want to stay on track In opioid treatment or medication-assisted treatment?: No Goal (Required): Reduce Psychiatric Distress Required Objective: Patient will achieve/maintain a PHQ-9 score of Mild (0-4) over the next year. Custom Objective: Patient will report a depression score <= 4/10 for 3 consecutive sessions Custom Objective: Patient will report an anxiety score <= 3/10 for 3 consecutive sessions Custom Objective: Patient will learn and utilize at least 2 nonpharmacological pain management strategies in 12 months Signed: Rosalba Gregorio, Ph.D. 01/01/2024 Progress Toward ISP Goals/Objectives: Depression <=4; Anxiety >3; patient pacing housecleaning Therapeutic Interventions Provided: Assessed Mood, Assessed Thinking, Assessed Safety, Cognitive Behavioral Therapy, Psychoeducation, Supportive Psychotherapy, and Symptoms monitoring Reviewed symptoms and events since last session. Patient given time to review recent occurrence of knee pain as well as being released to drive. She said a goal of hers is to drive by herself to attend neurology F/U appt in 03/2024. She said she wants to drive solo to [place] before the longer drive to [place]. Patient also initiated discussion of her assertion to spouse that she wants to move. She said he occasionally looks online at real estate, but she said he looks as the wrong neighborhoods. Patient said she is unable to look online due to hand movements required to navigate with spouse; we discussed possibility that she look at real estate via her iPad. Patient open to doing this. Processed health issues of various family members and discussed plans for Easter. Patient open and receptive to discussion and she was provided with positive feedback, encouragement, and support. Response to Intervention: Agreeable Overall Assessment of Progress: Progressing Mental Status Exam Level of Alertness: alert Appearance: appears stated age, clean, dressed appropriately, and healthy Eye Contact: normal Build/Stature: normal weight and normal height Attitude Toward Examiner: cooperative and pleasant Behavior: normal Speech: clear, coherent reciprocal, lively, normal, normal pitch, normal rate, normal rhythm, and normal volume Language: expressive normal and receptive normal Mood: anxious Affect: appropriate, broad, congruent, full, and stable Thought Process: coherent, goal-directed, linear, logical, normal, and relevant Thought Content: intact, no delusions, no depersonalization, no derealization, no hallucinations, no homicidal ideation, no illusions, no preoccupations, and no suicidal ideation Orientation: oriented to person, oriented to place, and oriented to time Attention and Concentration: able to appropriately shift attention, able to focus, able to sustain attention, and intact Memory: able to comment on events, conversation content appropriate, and intact Estimated Intelligence: above average Insight: intact and true insight Judgement: social judgment intact Reliability: very reliable Plan: Continue pacing cleaning Easter at brother's house ([place]); not sure if having siblings get-together; in-laws' likely having dinner out weekend after Easter Continue practicing driving Continue setting limits and boundaries This visit (more content not included)... [facility] 01-01-2024 Note Psych Progress Note Time In: 1307 Time Out: 1401 HPI Present at Visit: patient Location of Service: Patient Location: Home; Provider Location: [facility] Office Current Presenting Symptoms/Problems: Trauma: No trauma noted Depression = 2 /10; Anxiety = 3/10; Pain = 4-5/10 (right hand numbness, headache, hip) Patient said she has had 2 sessions of PT focused on rehabilitating hand after carpal tunnel surgery. She said that the hand did get infected and one of the stitches was embedded. She did a 7-day course of antibiotics. Patient said she had F/U appointment with surgeon and infection is resolved. Patient said that her brother initiated a family group text to keep everyone updated on status of cousin who reportedly had an aortic tear. Patient said no one has heard from her nephew who is believed to be in [place]. Patient is trying to be emotional support for niece with breast cancer. Patient said cost of home cleaning was increased, so she decreased service to once a month. She said that she will need to figure out how to do some cleaning in the interim (with hand and neck issues). Patient and spouse visited a [facility]. Patient is interested in doing some strengthening in addition to the stationary bike. She also intends to visit the [facility] and another nearby gym because she has Silver Sneakers and is interested in taking a class. Individualized Service Plan (ISP): Treatment Plan Revision Date: 01/01/24 Review Date: 01/01/25 Concerns Referred/Deferred: Medical pain management Service Provider: Rosalba Gregorio, Ph.D. Service Frequency: 4-6 Weeks Patient's Needs: depression, anxiety, nonpharmacological pain management Strengths or Assets: Patient is engaged in treatment and motivated Patient's Stated Goals: I want to stay on track In opioid treatment or medication-assisted treatment?: No Goal (Required): Reduce Psychiatric Distress Required Objective: Patient will achieve/maintain a PHQ-9 score of Mild (0-4) over the next year. Custom Objective: Patient will report a depression score <= 4/10 for 3 consecutive sessions Custom Objective: Patient will report an anxiety score <= 3/10 for 3 consecutive sessions Custom Objective: Patient will learn and utilize at least 2 nonpharmacological pain management strategies in 12 months Signed: Rosalba Gregorio, Ph.D. 01/01/2024 Progress Toward ISP Goals/Objectives: Depression <=4; Anxiety <=3 Therapeutic Interventions Provided: Assessed Mood, Assessed Thinking, Assessed Safety, Cognitive Behavioral Therapy, Psychoeducation, Supportive Psychotherapy, and Symptoms monitoring Reviewed symptoms and events since last session. Patient given time to review continued issues with hand surgery and follow-up. We also processed how patient is coping with various medical issues of extended family members. We also brainstormed ways that patient could gently and consistently clean between housecleaning visits. Initiated ISP and patient participated in the development of ISP objectives and was in agreement with plan. Patient given encouragement and support. Response to Intervention: Agreeable Overall Assessment of Progress: no change Mental Status Exam Level of Alertness: alert Appearance: appears stated age, clean, dressed appropriately, and healthy Eye Contact: normal Build/Stature: normal weight and normal height Attitude Toward Examiner: cooperative and pleasant Behavior: normal Speech: clear, coherent reciprocal, lively, normal, normal pitch, normal rate, normal rhythm, and normal volume Language: expressive normal and receptive normal Mood: anxious Affect: appropriate, broad, congruent, full, and stable Thought Process: coherent, goal-directed, linear, logical, normal, and relevant Thought Content: intact, no delusions, no depersonalization, no derealization, no hallucinations, no homicidal ideation, no illusions, no preoccupations, and no suicidal ideation Orientation: oriented to person, oriented to place, and oriented to time Attention and Concentration: able to appropriately shift attention, able to focus, able to sustain attention, and intact Memory: able to comment on events, conversation content appropriate, and intact Estimated Intelligence: above average Insight: intact and true insight Judgement: social judgment intact Reliability: very reliable Plan: Appointment with surgeon 01/05/24 Get cleaning wipes and have available in bathroom to wipe down sink; spouse can clean shower/bathtub Continue setting limits and boundaries F/U telehealth appointment 01/30/24 This visit was conducted [id number] with the use of audio and video technology using [employer] and the patient was notified that using 3rd alliance party telecommunication application ([employer]) is HIPAA compliant. It was explained that the limits of confidentiality that exist during in-person sessions also apply for telepsychology sessions (i.e., where the megha (more content not included)... [facility] 12-25-2023 History of Present illness Narrative Patient is here for a follow up. She states she had a bad headache today. She has pressure. She states she has not had any seizures. Patient does need B12 injection today in left hip. Patient tolerated injectioSubjective Kristin Null is a 63 y.o. female. HPI BP 147/90 (BP Location: Left arm, Patient Position: Sitting, BP Cuff Size: Adult) Wt 190 lb BMI 37.11 kg/m Allergies Allergen Reactions Acetaminophen Other Reaction(s): Other (See Comments) Gastric ulcders Celecoxib Other Reaction(s): Other (See Comments), Unknown ulcers Codeine Nausea And Vomiting Other Reaction(s): Unknown Diclofenac-Misoprostol Other Reaction(s): Other (See Comments) Gastric ulcers Eggs Or Egg-Derived Products Swelling Other Reaction(s): Unknown Flu shot Swelling and redness at site Glutaral Other Reaction(s): Other (See Comments), Unknown Ulcers Nsaids Other Reaction(s): Other (See Comments), Unknown Other Other Reaction(s): GI Disturbance Other Reaction(s): Unknown Oxaprozin Hives GI ulcers Sulfa Antibiotics Hives and Rash blisters Wound Dressing Adhesive Current Outpatient Medications: Dilantin 100 MG capsule, TAKE 3 CAPSULES BY MOUTH AT BEDTIME, Disp: 270 capsule, Rfl: 1 Dilantin 30 MG capsule, TAKE 1 CAPSULE BY MOUTH ON FRIDAY, FRIDAY, FRIDAY AND FRIDAY, Disp: 90 capsule, Rfl: 1 ALFALFA PO, Take by mouth, Disp: , Rfl: alpha tocopherol (Vitamin E) 1000 units capsule, 1 (one) time each day at the same time., Disp: , Rfl: ascorbic acid (Vitamin C) 1000 MG tablet, Take 1,000 mg by mouth in the morning., Disp: , Rfl: Ascorbic Acid (Vitamin C) 500 MG capsule, every 12 (twelve) hours., Disp: , Rfl: aspirin 81 MG EC tablet, 1 (one) time each day at the same time., Disp: , Rfl: b complex vitamins capsule, Take 1 capsule by mouth in the morning., Disp: , Rfl: beta carotene (Vitamin A) 11876 units capsule, Take 25,000 Units by mouth., Disp: , Rfl: Biotin 1000 MCG chewable tablet, every 12 (twelve) hours., Disp: , Rfl: busPIRone (Buspar) 10 MG tablet, Take 1 tablet (10 mg) by mouth in the morning and 1 tablet (10 mg) before bedtime., Disp: 180 tablet, Rfl: 3 calcium carbonate (Os-Maritza) 1250 (500 Ca) MG tablet, every 12 (twelve) hours., Disp: , Rfl: calcium-vitamin D-vitamin K (Calcium + D + K) 750-500-40 MG-UNT-MCG tablet, every 12 (twelve) hours., Disp: , Rfl: carvedilol (Coreg) 6.25 MG tablet, Take 6.25 mg by mouth in the morning and 6.25 mg before bedtime., Disp: , Rfl: cholecalciferol (Vitamin D-3) 125 MCG (5000 UT) tablet, Take 6,000 Units by mouth, Disp: , Rfl: clonazePAM (KlonoPIN) 0.5 MG tablet, Take 1 tablet (0.5 mg) by mouth in the morning and 1 tablet (0.5 mg) in the evening and 1 tablet (0.5 mg) before bedtime., Disp: 90 tablet, Rfl: 2 coenzyme Q-10 100 MG capsule, 1 capsule 1 (one) time each day at the same time, Disp: , Rfl: escitalopram (Lexapro) 10 MG tablet, Take 1 tablet (10 mg) by mouth in the morning., Disp: 90 tablet, Rfl: 3 gabapentin (Neurontin) 800 MG tablet, Take 1 tablet (800 mg) by mouth in the morning and 1 tablet (800 mg) in the evening and 1 tablet (800 mg) before bedtime., Disp: 270 tablet, Rfl: 1 glipiZIDE (Glucotrol) 5 MG tablet, Take 5 mg by mouth in the morning., Disp: , Rfl: melatonin 3 MG tablet, 3 tas Orally at bedtime, Disp: , Rfl: Milk Thistle 150 MG capsule, as directed Orally, Disp: , Rfl: mometasone (Nasonex) 50 MCG/ACT nasal spray, INSTILL 2 SPRAYS INTO EACH NOSTRIL EVERY MORNING, Disp: 18 g, Rfl: 11 Multiple Vitamin (Multi Vitamin) tablet, every 12 (twelve) hours., Disp: , Rfl: omega-3 (Fish Oil) 1000 MG capsule, 1 capsule 1 (one) time each day at the same time., Disp: , Rfl: pioglitazone (Actos) 15 MG tablet, 1 (one) time each day at the same time., Disp: , Rfl: Respiratory Therapy Supplies (CareTouch CPAP & BIPAP Hose) misc, BIPAP mask, heating tubing and supplies for 1 year., Disp: 1 each, Rfl: 0 tiZANidine (Zanaflex) 4 MG tablet, Take 4 mg by mouth 1 (one) time each day., Disp: , Rfl: traZODone (Desyrel) 50 MG tablet, Take 3 tablets (150 mg) by mouth at bedtime. Take 3 Tablets (150mg( by mouth at bedtime, Disp: 90 tablet, Rfl: 11 zinc gluconate 50 MG tablet, 1 (one) time each day at the same time., Disp: , Rfl: Past Medical History: Diagnosis Date Anxiety disorder 01/04/2009 B12 deficiency 05/21/2018 Backache 05/28/2012 Brachial neuritis or radiculitis 01/04/2009 Cervical stenosis of spinal canal 05/21/2018 Depression ([facility]) Dizziness 08/08/2013 Epilepsy ([facility]) 09/16/2017 Fatigue 05/21/2018 Headache 11/19/2011 History of being hospitalized 08/2005 [facility] x5 days for double pneumonia Insomnia 07/14/2018 Lack of coordination 08/08/2013 Malaise and fatigue 02/15/2014 ADRIANA (obstructive sleep apnea) 05/21/2018 Paresthesias 05/21/2018 Radicular pain in left arm 05/21/2018 Right shoulder pain Seizure disorder ([facility]/HCC) 06/07/2009 Sleep apnea 10/24/2015 Thyroid disease ([facility]) Vitamin D deficiency 01/25/2013 Past Surgical History: Procedure Laterality Date BACK SURGERY 1972, 1998 BIOPSY VAGINAL 2020 cyst CARPAL TUNNEL RELEASE Right 1985 CERVICAL DISC ARTHROPLASTY 10/28/2022 C3/4/5 Dr. Cruz CERVICAL FUSION 09/02/2022 C5-C6 - Dr. Cruz and 04/16 CHOLECYSTECTOMY CYST REMOVAL Right breast - 1989, 1990 KNEE SURGERY Left for meniscus and ACL tear OTHER SURGICAL HISTORY sialendoscopy PARATHYROIDECTOMY MT KNEE SCOPE,DIAGNOSTIC Bilateral MT LOBECTOMY TEMPOR CORTICOGRAPHY 2006 temporal lobectomy MT NEUROPLASTY &/TRANSPOSITION ULNAR NERVE ELBOW 1989 ROTATOR CUFF REPAIR 2015 arthroscopic torn rotator cuff and bicep SHOULDER SURGERY Right shoulder impingement SPINAL FUSION 1972, 1998 TOTAL SHOULDER ARTHROPLASTY Right 03/2015 TRIGGER FINGER RELEASE Right 2013 TUBAL LIGATION 1991 TUMOR REMOVAL 1981 from foot Family History Problem Relation Name Age of Onset Heart disease Mother Heart disease Father Cancer Sibling Other (suicide) Nephew reports that she has never smoked. She has never used smokeless tobacco. She reports that she does not drink alcohol and does not use drugs. Review of Systems Const: Denies appetite change, fever, chills. Allergy: Denies medication reaction. Ocular: Denies visual acuity change. ENT: Denies hearing change. Endoc: Denies weight loss. Resp: Denies dyspnoea, wheezing. Cardiac: Denies angina, palpitations. GI: Denies nausea, vomiting. Haem: Denies bleeding. : Denies incontinence. MSK: Denies arthralgias, joint oedema. Derm: Denies rash, hair loss. Neuro: Denies ataxia, tremor. Also see HPI for elements of ROS documented therein and for details of positive findings, which shall supersede the foregoing. Objective Neurological Exam GENERAL EXAMINATION Appearance: in no acute distress, well developed, well nourished. Head: normocephalic, atraumatic. Eyes: pupils equal, round, reactive to light and accommodation. Ears: normal. Mouth: mucosa moist. Throat: clear. Neck: neck supple, full range of motion, no cervical lymphadenopathy. Skin: no suspicious lesions, warm and dry. Heart: no murmurs, regular rate and rhythm, S1, S2 normal. Lungs: clear to auscultation bilaterally. Abdomen: normal, bowel sounds present, soft, nontender, nondistended. Extremities: no clubbing, cyanosis, or edema. NEUROLOGICAL EXAMINATION Mental Status: The patient is alert and oriented to person, place, and time. Except as noted, thought content, form, and comprehension was normal. Phonation, articulation, resonance, and prosody are normal. Cranial Nerves: Pupils were 4.0 millimeters, equal, round, and reactive to light and accommodation, both directly and consensually. Visual suarez were full by confrontation. There was no ptosis; extra-ocular movements were full; and there was no nystagmus. Funduscopic exam is normal. Masseters are of normal strength. Facial movement is normal. Hearing is grossly intact. There is no dysarthria. The gag reflex is equal bilaterally. Sternocleidomastoids and trapezii are of normal strength. The tongue protrudes in the midline. Motor: Muscle testing was performed in all four extremities, including at least sales and marketing engineer, finger abductors, biceps, triceps, deltoid, toe flexors and extensors, tibialis anterior, triceps surae, quadriceps femoris, biceps femoris, and iliopsoases. Tone is normal. Muscle bulk is normal. Fasciculations are not seen . Pronator drift was not evident. Sensory: Sensation to touch, temperature, and vibration was normal in the arms, legs and face. Romberg is negative. Reflexes: Biceps, triceps, brachioradialis are 2/4 bilaterally. Patellar and Achilles reflexes are 2/4 bilaterally. Plantar responses were flexor bilaterally. Coordination: Dysmetria and dysdiadochokinesia are absent. Tremor is absent; dystonia is absent; chorea is absent. Gait And Station: Station and gait are normal. Apraxia and spasticity are not evident. Arm swing is normal. Toe, heel, and tandem walking are performed without difficulty. Musculoskeletal: Trigger-point tenderness was absent. There is no spasm of the trapezii or paraspinals. Assessment/Plan Diagnoses and all orders for this visit: Acute carpal tunnel syndrome of right wrist Seizure (CMS/HCC) - clonazePAM (KlonoPIN) 0.5 MG tablet; Take 1 tablet (0.5 mg) by mouth in the morning and 1 tablet (0.5 mg) in the evening and 1 tablet (0.5 mg) before bedtime. Allodynia Cervical radiculopathy Complex partial seizure with impairment of consciousness (CMS/HCC) Kristin Null is a 63 y.o. year old F who presents with episodes of altered levels of consciousness possibly due to seizure, syncope or cerebral hypoperfusion secondary to intracranial or extracranial stenosis. sensory disturbance in the distal lower extremities manifested predominantly as numbness and paresthesia in his bilateral feet which have been progressive over the past 8 months, Possible etiologies would include a generalized process affecting large fibers such as peripheral neuropathy, lumbar radiculopathy, or lumbosacral plexopathy. I cannot exclude a small fiber neuropathy contributing to predominantly sensory symptoms in the lower extremities, I cannot exclude it medical condition or metabolic process contributing to peripheral nerve dysfunction including polyneuropathy. n well. No other concerns today. documented in this encounter [facility] 11-20-2023 Note Psych Progress Note Time In: 1603 Time Out: 1704 HPI Present at Visit: patient Location of Service: Office Current Presenting Symptoms/Problems: Depression = 5-6 /10; Anxiety = 5-6/10; Pain = 6-7/10 (right hand) Patient said she is happy the holidays are over. Patient had carpal tunnel release surgery on right hand on 11/06/23. She presents today with the hand wrapped and edema in the fingers. She said she continues to feel throbbing pain at the incision and that the incision is warm to the touch. She has appointment with surgeon next week. Patient reported that several extended family members have been diagnosed with serious health problems. Individualized Service Plan (ISP): TBA Progress Toward ISP Goals/Objectives: Patient maintaining boundaries; depression and anxiety ratings moderate despite several family members' significant medical issues Therapeutic Interventions Provided: Assessed Mood, Assessed Thinking, Assessed Safety, Cognitive Behavioral Therapy, Psychoeducation, Supportive Psychotherapy, and Symptoms monitoring Reviewed symptoms and events since last session. Patient given time to review the holidays (she and spouse got Faith pittman to host in-laws' Java gathering). Patient also reviewed recent surgery and continued issues post-surgery. Patient also given time to review and process recent medical crises of extended family members (including niece, sister, brother). Patient given encouragement and support. Response to Intervention: Agreeable Overall Risk Level Intervention Risk Factors: Modifiable risk factors Protective Factors: Forward thinking, Modifiable risk factors, Positive coping skills, Strong protective factors, and Strong social supports Suicidality: Low: Thoughts of , no plan, intent, or behavior Possible Interventions: Give emergency crisis numbers Risk Assessment and Plan: Minimal risk of harm to self Risk Assessment Interventions: Given emergency/crisis number Overall Assessment of Progress: no change Mental Status Exam Level of Alertness: alert Appearance: appears stated age, clean, dressed appropriately, and healthy Eye Contact: normal Build/Stature: normal weight and normal height Attitude Toward Examiner: cooperative and pleasant Behavior: normal Speech: clear, coherent reciprocal, lively, normal, normal pitch, normal rate, normal rhythm, and normal volume Language: expressive normal and receptive normal Mood: anxious, depressed, and irritable Affect: appropriate, broad, congruent, full, and stable Thought Process: coherent, goal-directed, linear, logical, normal, and relevant Thought Content: intact, no delusions, no depersonalization, no derealization, no hallucinations, no homicidal ideation, no illusions, no preoccupations, and no suicidal ideation Orientation: oriented to person, oriented to place, and oriented to time Attention and Concentration: able to appropriately shift attention, able to focus, able to sustain attention, and intact Memory: able to comment on events, conversation content appropriate, and intact Estimated Intelligence: above average Insight: intact and true insight Judgement: social judgment intact Reliability: very reliable Plan: Appointment with surgeon 11/25/23 Continue setting limits and boundaries F/U telehealth appointment 01/01/24 Attestation Not Needed. The patient was not seen with a resident or student. [facility] 11-06-2023 Hospital Discharge instructions Ashly Patterson RN - 11/06/2023 1:22 PM EST Call office for appointment in 2 weeks. Activity as tolerated. May shower 24 hours. Call for signs of infection, fever, chills, or increasing pain at surgical site. Take medication as prescribed. Activity You have had anesthesia today Do not drive, operate heavy equipment, consume alcoholic beverages, or make any important decisions for 24 hours If you are taking pain medication: Do not drive or consume alcohol. Take your time changing positions today. You may feel light headed or dizzy if you move too quickly. Continue your home medications as ordered by your physician. Diet You can eat your normal diet when you feel well. You should start off with bland foods like chicken soup, toast, or yogurt. Then advance as tolerated. Drink plenty of fluids (unless your doctor tells you not to). Your urine should be very lightly colored without a strong odor. documented in this encounter [facility] 10-31-2023 History of Present illness Narrative DAY OF SURGERY/PROCEDURE GUIDELINES As a patient at the [facility], you can expect quality medical and nursing care that is centered on your individual needs. It is our goal to make your surgical experience as comfortable and excellent as possible. ____ The following instructions are general guidelines, if any information on this sheet is different from what your doctor has instructed you to do, please follow your doctor's instructions. Please arrive on 11/06 @ 1100 am Enter through entrance C. Check in at registration Upon arrival you will be taken to the pre-operative area to get ready for surgery, your family will stay in the waiting room and visit with you once you are ready for surgery. Due to special limitations please limit visitation to 1-2 members of your family at a time. When it is time for surgery your family will return to the waiting room. Nothing to eat, drink, smoke, suck or chew after midnight (no water, gum, mints, cigarettes, cigars, pipes, snuff, chewing tobacco, etc.) or your surgery may be canceled. Take a shower or bath on the morning of your surgery/procedure (Hibiclens if directed) Do not apply any lotions. [place] your teeth, but do not swallow any water IN CASE OF ILLNESS - If you have a cold or flu symptoms (high fever, runny nose, sore throat, cough, etc.) rash, nausea, vomiting, loose stools, and/or recent contact with someone who has a contagious disease (chick pox, measles, etc.) please call your doctor before coming to the surgery center Take a small sip of water with heart, blood pressure, and/or seizure medication the morning of surgery. Coreg,gabapentin If applicable bring your: Eyeglasses and Case (If you wear contacts they have to be removed before surgery, bring case and solution) CPAP DO NOT take anticoagulants (blood thinners, aspirin or aspirin-containing products) as instructed by your physician. DO NOT take any diabetic pills or insulin morning of your surgery. Leave all jewelry at home and wear loose, comfortable clothing that is easy to put on and take off. If you will be returning home the same day as your surgery, you will need to have a responsible adult (18 years of age or older) present to drive you home. You will need someone stay with you at home for the first 24 hours following your surgery. This is due to the anesthesia and the medication given to you during surgery and recovery. documented in this encounter [facility] 10-20-2023 Note Department of Psychi atry Diagnostic Assessment Time In: 1205 Time Out: 1256 Encounter Type: Off-Site Video at Remote Location Patient attempted to log into [employer] site and received message that browser was not supported. This session was conducted using provider's independently paid version of [email or web address] is which is both HIPAA compliant and secure. Patient Name: Kristin Null MRN / CSN: [id number] Date of / Age: 11 1960 / 63 y.o. / female Encounter Date: 10/20/23 Diagnosis: The primary encounter diagnosis was ANGELO (generalized anxiety disorder). A diagnosis of Dysthymic disorder was also pertinent to this visit. Care Team Encounter Provider: Rosalba Gregorio, PhD Referring Physician (if known): No ref. provider found Other Referral Sources: Rosalba Gregorio, Ph.D. PCP (if known): Niki Pearson MD Additional Provider(s): Source of Information: Source of Information: Patient Special Needs: Special Needs: None Subjective Reason for Referral Patient has been treated by this provider since 2009. Her care is being transferred to this facility due to [facility] change. Identifying Information: Kristin Null is a 63 y.o. female. Chief Complaint Depression, anxiety, chronic medical illness History of Present Illness: Kristin Null is a 63 y.o. female with past psychiatric history of anxiety and depression presenting to the [facility] for a psychiatric evaluation. Psychosocial changes contributing to current stressors: Denies Recent medical changes or non-psychiatric medication changes: Denies Mood Symptoms: Major Depressive Disorder Symptoms: Patient reports the following symptoms: Anhedonia, Decreased Mood, Feelings of Guilt or Worthlessness, and chronic sadness Anxiety Symptoms: ANGELO Symptoms: Patient reports the following symptoms: Uncontrollable Worry, Irritability, Poor Concentration, Restlessness, Inability to Relax, and Fatigue Psychosis: Patient does not meet criteria. Attention-Deficit Hyperactivity Disorder: Patient does not meet criteria. Other Disorders: Patient does not spontaneously report symptoms of other DSM-V diagnoses. Substance Use: Patient denies substance use. Past Psychiatric History Inpatient Psychiatric History: Hospitalizations: Denies Current or previous non-suicidal self-injury: Denies Previous Suicide Attempts: Denies Previous Homicide Attempts: Denies Outpatient Psychiatric History: Currently Active in Psychiatric Care: Patient has been in treatment with this documentation writer since 2009 Previous Providers: Rosalba Gregorio, Ph.D. Previous Therapists: Rosalba Gregorio, Ph.D. Psychiatric Medication Trials: Drug, Dose, Frequency Outcomes (Efficacy, Side Effects) Date(s) Taken Substance Use History Substance Current Use Previous Use Alcohol Denies Denies Tobacco Denies Denies Cannabis Denies Denies Cocaine Denies Denies Opiates Denies Denies Other Drugs Denies Denies Previous Rehabilitation: Denies Legal History (due to substance use): Denies Medical History Medical Diagnoses There is no problem list on file for this patient. Primary Care Physician: Niki Pearson MD Surgeries: Patient had brain surgery in 2004 to treat seizures. Patient has had numerous surgeries to address cervical spine issues as well as carpal tunnel Head Injuries: brain surgery 2004 Sexual History Is : N/A Contraception: N/A Sexually Active: yes Last Menstrual Period: N/A Allergies Not on File Medications No current outpatient medications Pain History The patient's last pain score was 4-5/10. Family History Family history of medical illness: Denies Family history of psychiatric illness: Denies Family history of substance abuse: Denies Family history of suicide attempts/completions: Patient reported that her nephew is having chronic suicidal ideation and has been admitted to inpatient treatment several times. Social History Identity Gender Identity: female Sexual Status and Orientation: Sexually active, Heterosexual, Monogamous, and Comfortable Current Functioning Custody: Decision Makers Currently Involved in Care: Self Developmental Issues: No developmental issues Ability to Self Care: Independent Highest Level of Education: high school diploma Employment: Disabled and Retired Current Source of Income: Social Security, spouse Relationship History: Patient has been for 15 years. History of Emotional Functioning: Patient has had anxiety since young adulthood. She has had chronic depression since 2004 History of Trauma: denies Current Behavioral Functioning: Patient is retired and meet with chronic medical illnesses including chronic pain, spinal problems, carpal tunnel. She provided a current pain rating of 4-5/10, a rating of 3-4/10 for a good pain day, and a rating of 7-8/10 for a bad pain day.: Current Emotional Functioning: patient experiences (more content not included)... [facility] 10-29-2022 History of Present illness Narrative Physical Therapy Facility/Department: [address] ORTHO/MED SURG Physical Therapy Initial Assessment Name: Kristin Null : 1960 Date of Service: 10/29/2022 Cervical stenosis s/p anterior cervical diskectomy and disc arthroplasty of C3-4 and C4-5, POD#1 Discharge Recommendations: Patient would benefit from continued therapy after discharge Patient Diagnosis(es): The primary encounter diagnosis was Cervical stenosis of spinal canal. A diagnosis of S/P cervical spinal fusion was also pertinent to this visit. Past Medical History: has a past medical history of Anxiety, Arthritis, Chronic back pain, COVID-19, COVID-19 vaccination not done, Diabetes mellitus (HCC), Epilepsy (HCC), Gall stones, History of blood transfusion, Numbness around mouth, ADRIANA (obstructive sleep apnea), PONV (postoperative nausea and vomiting), Seasonal allergies, Shoulder pain, Wears glasses, and Wellness examination. Past Surgical History: has a past surgical history that includes lumbar fusion (1972 1998); Ulnar tunnel release (Right, 1988); Carpal tunnel release (Right, 1984); Breast cyst excision (1989 1990); Tubal ligation (1990); shoulder surgery (Right, 1997); parathyroidectomy (2003); brain surgery (Right, 2004); Cholecystectomy (2006); Knee arthroscopy (Right, 2009); Finger trigger release (Right, 2013); Shoulder arthroscopy (2014); Parotidectomy (Left, 08/07/2020); Colonoscopy; Breast biopsy; Upper gastrointestinal endoscopy; Knee arthroscopy (Right, 02/12/2021); Knee arthroscopy (Left, 2019); Anterior cervical discectomy w/ fusion (09/02/2022); cervical fusion (N/A, 09/02/2022); and Cervical disc arthroplasty (10/28/2022). Assessment Body Structures, Functions, Activity Limitations Requiring Skilled Therapeutic Intervention: Decreased functional mobility ;Decreased strength;Decreased endurance Assessment: the pt ambulated 100 ft with a RW x CGA. She was mildly unsteady at times. She could benefit from a continuation of PT to assist in her return to her PLOF Therapy Prognosis: Good Decision Making: Medium Complexity Requires PT Follow-Up: Yes Activity Tolerance Activity Tolerance: Patient limited by endurance;Patient limited by fatigue Plan Physcial Therapy Plan General Plan: (5-6x wk) Current Treatment Recommendations: Strengthening, Functional mobility training, Endurance training, Stair training, Gait training, Safety education & training Safety Devices Type of Devices: Nurse notified, Left in chair, Chair alarm in place, Gait belt, Call light within reach Restrictions Restrictions/Precautions Required Braces or Orthoses?: Yes Required Braces or Orthoses Cervical: soft Position Activity Restriction Other position/activity restrictions: Activity as tolerated Subjective General Patient assessed for rehabilitation services?: Yes Response To Previous Treatment: Not applicable Family / Caregiver Present: No Follows Commands: Within Functional Limits Subjective Subjective: Pt c/o 6/10 c spine pain Social/Functional History Social/Functional History Lives With: Spouse Type of Home: House Home Layout: One level Home Access: Stairs to enter with rails Entrance Stairs - Number of Steps: 3 Entrance Stairs - Rails: Both Bathroom Shower/Tub: Walk-in shower Bathroom Toilet: Handicap height Bathroom Equipment: Shower chair Home Equipment: Walker, rolling, Cane (Does not use AD at baseline) ADL Assistance: Independent Homemaking Assistance: Independent Homemaking Responsibilities: Yes Meal Prep Responsibility: Primary Laundry Responsibility: Primary Cleaning Responsibility: Primary Shopping Responsibility: Primary Ambulation Assistance: Independent Transfer Assistance: Independent Active Can Patcher: Yes Mode of Transportation: Car Occupation: On disability Leisure & Hobbies: Riding bikes, crafts, puzzles Additional Comments: Last sx was SEP 02 2022. will be off this week, but will have to return to work after that. Unsure of support after that. Vision/Hearing Vision Vision: Impaired (And contacts) Vision Exceptions: Wears glasses at all times Hearing Hearing: Within functional limits Cognition Orientation Overall Orientation Status: Within Functional Limits Orientation Level: Oriented X4 Cognition Overall Cognitive Status: WFL Objective Heart Rate: 98 Heart Rate Source: Monitor BP: 134/84 BP Location: Right upper arm BP Method: Automatic MAP (Calculated): 101 Resp: 16 SpO2: 94 % O2 Device: Nasal cannula AROM RLE (degrees) RLE AROM: WFL AROM LLE (degrees) LLE AROM : WFL AROM RUE (degrees) RUE AROM : WFL AROM LUE (degrees) LUE AROM : WFL Strength RLE Strength RLE: WFL Strength LLE Strength LLE: WFL Strength RUE Strength RUE: WFL Strength LUE Strength LUE: WFL Bed mobility Supine to Sit: Contact guard assistance Sit to Supine: Contact guard assistance Scooting: Contact guard assistance Transfers Sit to Stand: Contact guard assistance Stand to Sit: Contact guard assistance Ambulation Surface: Level tile Device: Rolling Walker Assistance: Contact guard assistance Distance: amb 100 ft with a RW x CGA Balance Posture: Good Sitting - Static: Good Sitting - Dynamic: Fair Standing - Static: Good Standing - Dynamic: Fair OutComes Score AM-PAC Score AM-[facility] Inpatient Mobility Raw Score : 20 (10/29/221138) AM-PAC Inpatient T-Scale Score : 47.67 (10/29/221138) Mobility Inpatient CMS 0-100% Score: 35.83 (10/29/221138) Mobility Inpatient CMS G-Code Modifier : CJ (10/29/221138) Tinneti Score Goals Short Term Goals Time Frame for Short Term Goals: 10 visits Short Term Goal 1: transfers with SBA Short Term Goal 2: amb 250 ft with a RW x SBA Short Term Goal 3: ascend/descend 4 steps with SBA Short Term Goal 4: to be independent with bed mobility Patient Goals Patient Goals : Return home Education Patient Education Education Given To: Patient Education Provided: Role of Therapy;Plan of Care Education Method: Verbal Barriers to Learning: None Education Outcome: Verbalized understanding Therapy Time Individual Concurrent Group Co-treatment Time In 0815 Time Out 0845 Minutes 30 [place] [facility] PT CLINICAL PHARMACY NOTE: MEDS TO BEDS Total # of Prescriptions Filled: 2 The following medications were delivered to the patient: Cephalexin gabapentin Additional Documentation: Images from the original note were not included. [facility] Office: [phone] Rakesh Vu DO, Norman Almeida DO, Feng Castle DO, Raul Noe DO, Margarita Najera MD, Suzette Barton MD, Romie Ashton MD, Maria Guadalupe Dos Santos MD, Xu Monahan MD, Joey Angeles MD, Rey Rocha DO, Renetta Hi MD, Link Spicer DO, Jose Manuel Kearney MD, Harlan Dye MD, Luz Vu DO, Radha Vuong MD, Magan Gant MD, López Castrejon DO, Jossie Dunham MD, Bernarda Wylie MD, Erica Perera MD, Marjorie Ricci MD, Mukul Carter DO, Facundo Caputo MD, Elmo Seth MD, Sonam Burrell, MAILER APPRENTICE, Sabina Gottlieb, MAILER APPRENTICE, Nicole Cody, MAILER APPRENTICE, Tim Buckner, MAILER APPRENTICE, Jennifer Zarate, DNP, Kate Srivastava, MAILER APPRENTICE, Sangeeta Martinez, MAILER APPRENTICE, Shanita Mansfield, MAILER APPRENTICE, Allie Jimenes, MAILER APPRENTICE, Alyson Orona, MAILER APPRENTICE, Vini Palumbo PA-C, Cynthia Church, MANAGER CAFE, Nenita Marion, MAILER APPRENTICE, Anaid Mendiola, MAILER APPRENTICE [facility] IN-PATIENT SERVICE [facility] Progress Note 10/29/2022 9:23 AM Name: Kristin Null Acct: [id number] Room: [facility]0/0240-01 Day: 1 Admit Date: 10/28/2022 5:56 AM PCP: Niki Pearson MD Code Status: Full Code Subjective: C/C: Hypoxia Interval History Status: improved. Patient seen and examined at bedside, no acute events overnight. Continue to improve overall with much better breathing. She is currently on RA Patient denies any chest pain, shortness of breath, chills, fevers, nausea or vomiting. Patient vitals, labs and all providers notes were reviewed,from overnight shift and morning updates were noted and discussed with the nurse Brief History: Per my partner Mrs. Kristin Null is a 62 year old male with a significant past medical history of hypertension, type 2 diabetes, epilepsy, insomnia who initially presented to the hospital for anterior cervical disc arthroplasty. Has been complaining of neck pain and bilateral shoulder pain for years with associated headaches. Status post anterior cervical disc arthroplasty C3-C4 and C4-C5 today currently postop day 0. Medicine was consulted for medical management. Review of Systems: Review of Systems Constitutional: Negative for chills, diaphoresis and fever. HENT: Negative for congestion. Eyes: Negative for visual disturbance. Respiratory: Negative for cough, chest tightness, shortness of breath and wheezing. Cardiovascular: Negative for chest pain, palpitations and leg swelling. Gastrointestinal: Negative for abdominal pain, blood in stool, constipation, diarrhea, nausea and vomiting. Genitourinary: Negative for difficulty urinating. Neurological: Negative for dizziness, weakness, light-headedness, numbness and headaches. All other systems reviewed and are negative. Medications: Allergies: Allergies Allergen Reactions Adhesive Tape Other (See Comments) welts Albumen, Egg Swelling Flu shot Swelling and redness at site Celecoxib Other (See Comments) ulcers Codeine Nausea And Vomiting Glutaral Other (See Comments) Ulcers Nsaids Other (See Comments) Oxaprozin Other (See Comments) GI ulcers Sulfa Antibiotics Other (See Comments) blisters Current Meds: Scheduled Meds: scopolamine 1 patch TransDERmal Q72H phenytoin 60 mg Oral Once per day on Fri Sat phenytoin 300 mg Oral Nightly clonazePAM 1.5 mg Oral Nightly escitalopram 10 mg Oral Daily melatonin 9 mg Oral Nightly calcium carbonate 600 mg Oral BID cetirizine 10 mg Oral Daily traZODone 100 mg Oral Nightly phenytoin 30 mg Oral Once per day on Sun Fri carvedilol 6.25 mg Oral BID glipiZIDE 5 mg Oral Daily pioglitazone 15 mg Oral Daily Vitamin D 6,000 Units Oral Daily busPIRone 10 mg Oral Daily fluticasone 1 spray Each Nostril Daily sodium chloride flush 10 mL IntraVENous 2 times per day insulin lispro 0-4 Units SubCUTAneous TID insulin lispro 0-4 Units SubCUTAneous Nightly gabapentin 800 mg Oral 2 times per day Continuous Infusions: lactated ringers 125 mL/hr (10/29/22 0627) sodium chloride dextrose PRN Meds: tiZANidine, sodium chloride flush, sodium chloride, morphine OR morphine, ondansetron OR ondansetron, polyethylene glycol, oxyCODONE-acetaminophen, oxyCODONE-acetaminophen, glucose, dextrose bolus OR dextrose bolus, glucagon (rDNA), dextrose Data: Past Medical History: has a past medical history of Anxiety, Arthritis, Chronic back pain, COVID-19, COVID-19 vaccination not done, Diabetes mellitus (HCC), Epilepsy (HCC), Gall stones, History of blood transfusion, Numbness around mouth, ADRIANA (obstructive sleep apnea), PONV (postoperative nausea and vomiting), Seasonal allergies, Shoulder pain, Wears glasses, and Wellness examination. Social History: reports that she has never smoked. She has never used smokeless tobacco. She reports that she does not currently use alcohol. She reports that she does not use drugs. Family History: Family History Problem Relation Age of Onset Stroke Mother Heart Disease Mother Heart Disease Father Vitals: BP 134/84 Pulse 98 Temp 99.3 F (37.4 C) (Oral) Resp 16 Ht 5' (1.524 m) Wt 174 lb (78.9 kg) SpO2 94% BMI 33.98 kg/m Temp (24hrs), Av.4 F (36.9 C), Min:97.2 F (36.2 C), Max:99.3 F (37.4 C) Recent Labs 10/28/22 1036 10/28/22 1614 10/28/22 2155 10/29/22 0621 POCGLU 154* 158* 136* 166* I/O (24Hr): Intake/Output Summary (Last 24 hours) at 10/29/2022 0923 Last data filed at 10/29/2022 0743 Gross per 24 hour Intake 1400 ml Output 2150 ml Net -750 ml Labs: Hematology:No results for input(s): WBC, RBC, HGB, HCT, MCV, MCH, MCHC, RDW, PLT, MPV, SEDRATE, CRP, INR, DDIMER, DO6SGRTS, LABABSO in the last 72 hours. Invalid input(s): PT Chemistry: Recent Labs 10/28/22 1250 10/29/22 0511 NA -- 138 K -- 3.9 CL -- 99 CO2 -- 29 GLUCOSE -- 167* BUN -- 13 CREATININE 0.59 0.67 ANIONGAP -- 10 LABGLOM >60 >60 CALCIUM -- 9.2 Recent Labs 10/28/22 0711 10/28/22 1036 10/28/22 1614 10/28/22 2155 10/29/22 0621 POCGLU 122* 154* 158* 136* 166* ABG:No results found for: POCPH, PHART, PH, POCPCO2, SRO6ARU, PCO2, POCPO2, PO2ART, PO2, POCHCO3, SVR0MNJ, HCO3, NBEA, PBEA, BEART, BE, THGBART, THB, RVC5DJP, XCMQ6YGW, X1PUZDEJ, O2SAT, FIO2 No results found for: SPECIAL Lab Results Component Value Date/Time CULTURE NO SIGNIFICANT GROWTH 06/17/2022 05:30 PM Radiology: No results found. Physical Examination: Physical Exam Vitals and nursing note reviewed. Constitutional: General: She is not in acute distress. Interventions: Cervical collar in place. HENT: Head: Normocephalic and atraumatic. Eyes: Conjunctiva/sclera: Conjunctivae normal. Pupils: Pupils are equal, round, and reactive to light. Neck: Comments: Wound dressing CDI Cardiovascular: Rate and Rhythm: Normal rate and regular rhythm. Heart sounds: No murmur heard. Pulmonary: Effort: Pulmonary effort is normal. No accessory muscle usage or respiratory distress. Breath sounds: No stridor. No decreased breath sounds, wheezing, rhonchi or rales. Abdominal: General: Bowel sounds are normal. There is no distension. Palpations: Abdomen is soft. Abdomen is not rigid. Tenderness: There is no abdominal tenderness. There is no guarding. Musculoskeletal: General: No tenderness. Skin: General: Skin is warm and dry. Findings: No erythema, lesion or rash. Neurological: Mental Status: She is alert and oriented to person, place, and time. Cranial Nerves: No cranial nerve deficit. Motor: No seizure activity. Psychiatric: Speech: Speech normal. Behavior: Behavior normal. Behavior is cooperative. Assessment: Hospital Problems Last Modified POA * (Principal) Cervical stenosis of spinal canal 10/28/2022 Yes Type 2 diabetes mellitus, without long-term current use of insulin (HCC) 10/28/2022 Yes Seizure disorder ([facility]) 10/28/2022 Yes ADRIANA treated with BiPAP 10/28/2022 Yes Primary hypertension 10/28/2022 Yes Insomnia 10/28/2022 Yes Plan: Cervical stenosis of spinal cord s/p cervical disc arthroplasty C3-C4 and C4-C5: Postop management ,Maintain cervical collar per primary. Postop hypoxia: Resolved, continue to encourage incentive spirometry . DM2: Continue home p.o. meds, sliding scale and hypoglycemia protocol as needed. Seizure disorder: Continue home medications. Depression/anxiety: Continue home medication BuSpar and Lexapro. ADRIANA: Uses CPAP at home Clear for discharge from medicine standpoint Will S/O Maria Guadalupe Dos Santos MD 10/29/2022 9:23 AM Orthopedic Progress Note Patient: Kristin Null Date of : 1960 62 y.o. female Subjective: Patient seen and examined at bedside. No complaints or concerns, except some sore throat. She has burning sensation when she drinks soup or coffee. No issue overnight. Pain controlled. Denies fever, [place], CP, SOB, N/V, dysuria. Flatus + PT to eval today. Vitals reviewed, afebrile Objective: Vitals: 10/29/22 0315 BP: 125/71 Pulse: (!) 106 Resp: 16 Temp: 98.5 F (36.9 C) SpO2: 94% Gen: NAD, Cooperative. Cardiovascular: Regular Rate Respiratory: No Acute Respiratory Distress MSK: Cervical Spine Dressings on, clean/dry/intact. Hard collar on. RUE No Ecchymoses, Abrasion, Deformity, or Lacerations. Skin Intact. Chronic dysthesia to median nerve distribution present. Non-Tender to Palpation. Compartments Soft. Ulnar/Median/AIN/PIN/Radial Motor Intact. C4-T1 SILT. Radial Pulse 2+ with BCR. LUE No Ecchymoses, Abrasion, Deformity, or Lacerations. Skin Intact. Dressings C/D/I. Chronic dysthesia to forefoot present. Compartments Soft. Ulnar/Median/AIN/PIN/Radial Motor Intact. Axillary/Median/Radial/Ulnar Nerve SILT. Radial Pulse 2+ with BCR. Recent Labs 10/28/22 1250 CREATININE 0.59 Meds: See Rec for Complete List Impression 62 y.o. female being seen for - Cervical stenosis s/p anterior cervical diskectomy and disc arthroplasty of C3-4 and C4-5, POD#1 Plan -WB Status: Activities as tolerated -Dressings: anterior left cervical spine, reinforce as needed. Ortho to change if still here on POD#2, though not prohibitive of patient discharge. -Ice for swelling and pain (20 minute on, 40 minute off) -Pain management: Multimodal -Abx: Finishing post-op Ancef (last dose today @0034) -Soft cervical collar for 2 weeks. -Consults: Intermed on helping with medical management -DVT ppx: EPC -PT/OT to evaluate today -Plan to discharge home, POD#1 pending PT/OT evaluation. -F/u Dr. Perry in 14d -Please page ortho for any questions. Reid Mcgregor D.O. Orthopedic Surgery Resident, PGY-1 [place], [place] PGY-3 Addendum Patient seen and examined. Agree with subjective and objective portions from Dr. Mcgregor. The patient is a 62 y.o. female with perioperative course as listed above. OK for activity as tolerated. Maintain dressings on neck. Complete post op abx. Encourage IS and mobilization with PT/OT. Maintain cervical collar on. DC pending PT this morning. Electronically signed by Ja Huerta DO 5:23 AM 10/29/2022 Attending Physician Statement I have discussed the care of Kristin Null , including pertinent history and exam findings with the resident. I have seen and examined the patient and the tellez elements of all parts of the encounter have been performed by me. I agree with the assessment, plan and orders as documented by the resident. Plan DC later today when up and stable. May need steroid for few days. Will add tizandidine. CLINICAL PHARMACY NOTE: MEDS TO BEDS Total # of Prescriptions Filled: 1 The following medications were delivered to the patient: Percocet 5-325mg Additional Documentation: delivered to patient in room 240 10/28 at 4:42pm. Co-pay $6.61 yoo. documented in this encounter [facility] [employer] Phone: 10-28-2022 Hospital Discharge instructions Deloris Chong RN - 10/28/2022 10:16 AM EST Orthopaedic Instructions: -Weight bearing status: Activities as tolerated -Wear soft collar for 2 weeks. May remove for hygiene. -Ice (20 minutes on and off 1 hour) to reduce swelling and throbbing pain. -Call the office or come to Emergency Room if signs of infection appear (hot, swollen, red, draining pus, fever). -Take medications as prescribed. -Follow up with Dr. Cruz in his office 10-14 days after surgery. Call [phone] to schedule/confirm or with any questions/concerns. The following attachments cannot be sent through Care Everywhere.cephalexin ([place])acetaminophen and oxycodone ([place])documented in this encounter [facility] [employer] Phone: 09-04-2022 History of Present illness Narrative Images from the original note were not included. [facility] Office: [phone] Rakesh Vu DO, Norman Almeida DO, Feng Castle DO, Raul Noe DO, Margarita Najera MD, Suzette Barton MD, Romie Ashton MD, Maria Guadalupe Dos Santos MD, Xu Monahan MD, Joey Angeles MD, Rey Rocha DO, Renetta Hi MD, Link Spicer DO, Jose Manuel Kearney MD, Harlan Dye MD, Luz Vu DO, Radha Vuong MD, Magan Gant MD, López Castrejon DO, Jossie Dunham MD, Bernarda Wylie MD, Erica Perera MD, Marjorie Ricci MD, Mukul Carter DO, Facundo Caputo MD, Elmo Seth MD, Sonam Burrell, MAILER APPRENTICE, Sabina Gottlieb, MAILER APPRENTICE, Nicole Cody, MAILER APPRENTICE, Tim Buckner, MAILER APPRENTICE, Jennifer Zarate, DNP, Kate Srivastava, MAILER APPRENTICE, Sangeeta Martinez, MAILER APPRENTICE, Shanita Mansfield, MAILER APPRENTICE, Allie Jimenes, MAILER APPRENTICE, Alyson Orona, MAILER APPRENTICE, Vini Palumbo PA-C, Cynthia Church, MANAGER CAFE, Marianna Gimenez, DNP, Nenita Marion, MAILER APPRENTICE, Jazzy Bejarano, MAILER APPRENTICE, Anaid Mendiola, MAILER APPRENTICE [facility] IN-PATIENT SERVICE [facility] Progress Note 09/04/2022 12:32 PM Name: Kristin Null Acct: [id number] Room: [id number] Day: 0 Admit Date: 09/02/2022 6:56 AM PCP: Niki Pearson MD Code Status: Full Code Subjective: C/C: elective spinal fusion surgery Interval History Status: improved. Patient feels better. To be off oxygen, saturating 96% on room air. Patient is starting to work with physical therapy and is doing better. Patient states that her numbness and tingling in the hands is also improving. Plan is for discharge today Brief History: 61-year-old female presents to the hospital for elective surgery, C5-7 fusion. Patient has known medical history of type 2 diabetes mellitus, epilepsy, obstructive sleep apnea on BiPAP. Patient states that she is physically quite active at home. Patient underwent surgery on 09/02. Medicine was consulted for medical management Review of Systems: Constitutional: negative for chills, fevers, sweats Respiratory: negative for cough, dyspnea on exertion, shortness of breath, wheezing Cardiovascular: negative for chest pain, chest pressure/discomfort, lower extremity edema, palpitations Gastrointestinal: negative for abdominal pain, constipation, diarrhea, nausea, vomiting Neurological: negative for dizziness, headache Complains of tingling in fingers more on left hand Medications: Allergies: Allergies Allergen Reactions Adhesive Tape Other (See Comments) welts Albumen, Egg Swelling Flu shot Swelling and redness at site Celecoxib Other (See Comments) ulcers Codeine Nausea And Vomiting Glutaral Other (See Comments) Ulcers Nsaids Other (See Comments) Oxaprozin Other (See Comments) GI ulcers Sulfa Antibiotics Other (See Comments) blisters Current Meds: Scheduled Meds: gabapentin 1,600 mg Oral Nightly gabapentin 800 mg Oral BID AC ipratropium-albuterol 1 ampule Inhalation Q4H WA clonazePAM 1.5 mg Oral Nightly carvedilol 6.25 mg Oral BID WC phenytoin 30 mg Oral Once per day on Sun Fri scopolamine 1 patch TransDERmal Q72H sodium chloride flush 5-40 mL IntraVENous 2 times per day acetaminophen 650 mg Oral Q6H melatonin 9 mg Oral Nightly phenytoin 300 mg Oral Nightly ascorbic acid 1,000 mg Oral Daily escitalopram 10 mg Oral Daily phenytoin 60 mg Oral Once per day on Fri traZODone 100 mg Oral Nightly insulin lispro 0-8 Units SubCUTAneous TID WC insulin lispro 0-4 Units SubCUTAneous Nightly Continuous Infusions: sodium chloride dextrose dextrose PRN Meds: cyclobenzaprine, docusate sodium, sodium chloride flush, sodium chloride, ondansetron, oxyCODONE-acetaminophen, tiZANidine, glucose, dextrose bolus OR dextrose bolus, glucagon (rDNA), dextrose, glucose, dextrose bolus OR dextrose bolus, glucagon (rDNA), dextrose, hydrALAZINE Data: Past Medical History: has a past medical history of Anxiety, Arthritis, Chronic back pain, COVID-19, COVID-19 vaccination not done, Diabetes mellitus (HCC), Epilepsy (HCC), Gall stones, History of blood transfusion, Numbness around mouth, ADRIANA (obstructive sleep apnea), PONV (postoperative nausea and vomiting), Seasonal allergies, Shoulder pain, and Wellness examination. Social History: reports that she has never smoked. She has never used smokeless tobacco. She reports that she does not currently use alcohol. She reports that she does not use drugs. Family History: Family History Problem Relation Age of Onset Stroke Mother Heart Disease Mother Heart Disease Father Vitals: BP (!) 149/84 Pulse (!) 107 Temp 98.7 F (37.1 C) (Oral) Resp 17 Ht 5' (1.524 m) Wt 164 lb (74.4 kg) SpO2 96% BMI 32.03 kg/m Temp (24hrs), Av.7 F (37.1 C), Min:98.5 F (36.9 C), Max:98.9 F (37.2 C) Recent Labs 09/03/22 1553 09/03/22195509/04/22 0639 09/04/22 1111 POCGLU 189* 163* 127* 163* I/O (24Hr): Intake/Output Summary (Last 24 hours) at 09/04/2022 1232 Last data filed at 09/04/2022 0927 Gross per 24 hour Intake -- Output 300 ml Net -300 ml Labs: Hematology: Recent Labs 09/03/22 1103 WBC 10.7 RBC 4.49 HGB 14.0 HCT 43.0 MCV 95.8 MCH 31.2 MCHC 32.6 RDW 13.1 PLT 181 MPV 10.1 Chemistry:No results for input(s): NA, K, CL, CO2, GLUCOSE, BUN, CREATININE, MG, ANIONGAP, LABGLOM, GFRAA, CALCIUM, CAION, PHOS, PSA, PROBNP, TROPHS, CKTOTAL, CKMB, CKMBINDEX, MYOGLOBIN, DIGOXIN, LACTACIDWB in the last 72 hours. Recent Labs 09/03/22 0652 09/03/22 1105 09/03/22 1553 09/03/22195509/04/22 0639 09/04/22 1111 POCGLU 140* 122* 189* 163* 127* 163* ABG:No results found for: POCPH, PHART, PH, POCPCO2, MAQ1VXT, PCO2, POCPO2, PO2ART, PO2, POCHCO3, UKL7IGQ, HCO3, NBEA, PBEA, BEART, BE, THGBART, THB, ZRP0RZF, ODOP7PMB, [id number], O2SAT, FIO2 No results found for: SPECIAL Lab Results Component Value Date/Time CULTURE NO SIGNIFICANT GROWTH 06/17/2022 05:30 PM Radiology: No results found. Physical Examination: General appearance: alert, cooperative and no distress Mental Status: oriented to person, place and time and normal affect Lungs: clear to auscultation bilaterally, normal effort, on room air Heart: regular rate and rhythm, no murmur Abdomen: soft, nontender, nondistended, normal bowel sounds, no masses, hepatomegaly, splenomegaly Extremities: no edema, redness, tenderness in the calves C-collar in place, dressing on surgical site Assessment: Hospital Problems Last Modified POA * (Principal) S/P cervical spinal fusion 09/02/2022 Yes Type 2 diabetes mellitus, without long-term current use of insulin ([facility]) 09/02/2022 Yes Seizure disorder ([facility]) 09/02/2022 Yes Current chronic use of systemic steroids 09/02/2022 Yes Acute respiratory failure with hypoxia ([facility]) 09/03/2022 Yes ADRIANA treated with BiPAP 09/03/2022 Yes Primary hypertension 09/03/2022 Yes Plan: Acute respiratory failure postop-resolved, CT PE scan was done as patient was desaturating multiple times yesterday, shows atelectasis, no pulmonary embolism, encourage patient for incentive spirometry, patient did not qualify for home oxygen on oxygen therapy protocol. ADRIANA-use BiPAP at night or daytime naps Spinal stenosis status post cervical spinal fusion Type 2 diabetes mellitus-resume home meds on discharge, monitor blood sugars and cover with sliding scale Continue home antiepileptics Hypertension- resume coreg, follow-up with PCP to adjust dose if blood pressure elevated above 140 systolic Urinary dysuria is improving, monitor off antibiotics Okay to start anticoagulation on postop day 5 Ensure pain control Patient is medically stable for discharge if vitals stable. Jose Manuel Kearney MD 09/04/2022 12:32 PM Home Oxygen Evaluation Home Oxygen Evaluation completed. Patient is on 0 liters per minute via room air. Resting SpO2 = 93% Resting SpO2 on room air = 93% SpO2 on room air with exercise = 90% Nocturnal Oximetry with patient on room air is recommended is SpO2 is between 89% and 95% (requires additional order). LUCIA DAS 10:44 AM Occupational Therapy Facility/Department: [address] ORTHO/MED SURG Occupational Therapy Daily Treatment Note Name: Kristin Null : 1960 Date of Service: 09/04/2022 Discharge Recommendations: Patient would benefit from continued therapy after discharge to increase pt safety and independence Assessment Performance deficits / Impairments: Decreased functional mobility ;Decreased ADL status;Decreased safe awareness;Decreased high-level IADLs;Decreased balance;Decreased endurance Prognosis: Good REQUIRES OT FOLLOW-UP: Yes Activity Tolerance Activity Tolerance: Patient Tolerated treatment well Plan Occupational Therapy Plan Times Per Week: 3-5x/week Current Treatment Recommendations: Functional mobility training, Balance training, Pain management, Safety education & training, Patient/Caregiver education & training, Equipment evaluation, education, & procurement, Self-Care / ADL, Home management training Restrictions Restrictions/Precautions Restrictions/Precautions: Seizure Required Braces or Orthoses?: Yes Required Braces or Orthoses Cervical: c-collar (per ortho sx c-collar at all times; can only doff c-collar for bathing in controlled circumstances) Position Activity Restriction Other position/activity restrictions: Activity as tolerated Subjective General Chart Reviewed: Yes Family / Caregiver Present: Yes (spouse sleeping in chair throughout session) General Comment Comments: Pt and RN agreeable to therapy this day. Pt supine in bed at start of session and retired to chair at sessin end with chair alarm on, call light in reach and all needs met. Pt c/o intermitnet pain in anterior neck however did not rate Objective Safety Devices Type of Devices: Gait belt;Left in chair;Chair alarm in place;Call light within reach;Patient at risk for falls;Nurse notified Restraints Restraints Initially in Place: No Balance Sitting: Without support (Pt tolerated approx 15 min static/dynamic sitting unsupported at EOB And at toilet) Standing: Without support (SBA static/dynamic standing with RW tolerating appox 5-6 min demo 0 LOB with 0-2 hand support) Gait Overall Level of Assistance: Stand-by assistance (EOB>bathroom>chair utilizing RW demo 0 LOB) Toilet Transfers Toilet - Technique: Ambulating Equipment Used: Standard toilet Toilet Transfer: Stand by assistance Toilet Transfers Comments: utilizing RW ADL Feeding: Independent Feeding Skilled Clinical Factors: Self feeding seated in chair pt able to open all containers demo 0 loss of sales and marketing engineer Grooming: Stand by assistance;Setup Grooming Skilled Clinical Factors: oral care, face washing and hand hygiene facilitated standing at sink with RW demo 0 LOB and 0 loss of sales and marketing engineer LE Dressing: Stand by assistance;Setup;Verbal cueing LE Dressing Skilled Clinical Factors: To doff/don socks seated at EOB utilizing figure 4 technique pt demo G hip flexion noting does utilize AE prn at residence Toileting: Stand by assistance;Setup Toileting Skilled Clinical Factors: SBA for toilet transfer with RW, SBA for personal hygiene seated on toilet Additional Comments: Throughout session pt limited per pain and fatigue. C-collar donned prior to B[place]ARD entrance and remained donned at session end. Bed mobility Supine to Sit: Stand by assistance Scooting: Stand by assistance Bed Mobility Comments: HOB flat utilizing log roll demo G carry over Transfers Sit to stand: Stand by assistance Stand to sit: Stand by assistance Transfer Comments: utilizing RW Cognition Overall Cognitive Status: WFL Cognition Comment: Pt repeating questions throughout session noting epilepsy medication, makes me feel loopy Orientation Overall Orientation Status: Within Functional Limits Education Given To: Patient Education Provided: Role of Therapy;Transfer Training;ADL Adaptive Strategies;Precautions Education Provided Comments: proper hand and foot placement; balance maintaince; walker management; c-collar precautions-F carry over Education Method: Demonstration;Verbal Education Outcome: Continued education needed [facility] Score [facility] Inpatient Daily Activity Raw Score: 19 (09/04/22943) [facility] Inpatient ADL T-Scale Score : 40.22 (09/04/22943) ADL Inpatient CMS 0-100% Score: 42.8 (09/04/22943) ADL Inpatient [facility] G-Code Modifier : CK (09/04/22943) Goals Short Term Goals Time Frame for Short Term Goals: by discharge Short Term Goal 1: Pt will complete UB ADL's SBA with AE/DME/modified techniques as needed Short Term Goal 2: Pt will complete LB ADL's Min A with AE/DME/modified techniques Short Term Goal 3: Pt will complete functional mobility/transfers SBA w/RW as needed Short Term Goal 4: Pt will demo Good safety during functional activity with 1-2 VC's as needed Patient Goals Patient goals : to get better Therapy Time Individual Concurrent Group Co-treatment Time In 0738 Time Out 0817 Minutes 39 Timed Code Treatment Minutes: 39 Minutes GRABIEL Ho Patient refused neurontin 800mg at bed time. She said that she takes it at home as 1600mg at bed time. Informed ortho service about it but still waiting for final order. Will continue monitoring patient. Occupational Therapy Facility/Department: [address] ORTHO/MED SURG Occupational Therapy Initial Assessment Name: Kristin Null : 1960 Date of Service: 09/03/2022 Discharge Recommendations: Patient would benefit from continued therapy after discharge OT Equipment Recommendations Equipment Needed: No Patient Diagnosis(es): The encounter diagnosis was Post-op pain. Past Medical History: has a past medical history of Anxiety, Arthritis, Chronic back pain, COVID-19, COVID-19 vaccination not done, Diabetes mellitus (HCC), Epilepsy (HCC), Gall stones, History of blood transfusion, Numbness around mouth, ADRIANA (obstructive sleep apnea), PONV (postoperative nausea and vomiting), Seasonal allergies, Shoulder pain, and Wellness examination. Past Surgical History: has a past surgical history that includes lumbar fusion (1972 1998); Ulnar tunnel release (Right, 1988); Carpal tunnel release (Right, 1984); Breast cyst excision (1989 1990); Tubal ligation (1990); shoulder surgery (Right, 1997); parathyroidectomy (2003); brain surgery (Right, 2004); Cholecystectomy (2006); Knee arthroscopy (Right, 2009); Finger trigger release (Right, 2013); Shoulder arthroscopy (2014); Parotidectomy (Left, 08/07/2020); Colonoscopy; Breast biopsy; Upper gastrointestinal endoscopy; Knee arthroscopy (Right, 02/12/2021); Knee arthroscopy (Left, 2019); Anterior cervical discectomy w/ fusion (09/02/2022); and cervical fusion (N/A, 09/02/2022). Assessment Performance deficits / Impairments: Decreased functional mobility ;Decreased ADL status;Decreased ROM;Decreased strength;Decreased safe awareness;Decreased sensation;Decreased high-level IADLs;Decreased balance Assessment: Impaired self care status Prognosis: Good Decision Making: High Complexity REQUIRES OT FOLLOW-UP: Yes Activity Tolerance Activity Tolerance: Patient Tolerated treatment well;Patient limited by pain Plan Occupational Therapy Plan Times Per Week: 3-5x/week Current Treatment Recommendations: Functional mobility training, Balance training, Pain management, Safety education & training, Patient/Caregiver education & training, Equipment evaluation, education, & procurement, Self-Care / ADL, Home management training Restrictions Restrictions/Precautions Restrictions/Precautions: Seizure Required Braces or Orthoses?: Yes Required Braces or Orthoses Cervical: c-collar Position Activity Restriction Other position/activity restrictions: Activity as tolerated Subjective General Patient assessed for rehabilitation services?: Yes Family / Caregiver Present: Yes () Subjective Subjective: I have no one at home during the day to help me 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 Pt agreeable to OT chanel. Pt reports 610 pain in upper neck Social/Functional History Social/Functional History Lives With: Spouse Type of Home: House Home Layout: One level Home Access: Stairs to enter with rails Entrance Stairs - Number of Steps: 2 Entrance Stairs - Rails: Both Bathroom Shower/Tub: Walk-in shower, Shower chair without back Bathroom Toilet: Handicap height Bathroom Equipment: Grab bars in shower Bathroom Accessibility: Accessible Home Equipment: Walker, rolling, Cane, Sock aid, Long-handled shoehorn, Commercial Loan Closer, Grab bars Has the patient had two or more falls in the past year or any fall with injury in the past year?: No Receives Help From: Family ADL Assistance: Independent Homemaking Assistance: Independent Homemaking Responsibilities: Yes Ambulation Assistance: Independent Transfer Assistance: Independent Active Can Patcher: Yes Mode of Transportation: [facility] Occupation: On disability Type of Occupation: disabled Leisure & Hobbies: Likes biking Additional Comments: Pt reports no support at home. 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 Objective Safety Devices Type of Devices: Left in bed;Nurse notified;Patient at risk for falls;Gait belt;Call light within reach Restraints Restraints Initially in Place: No Bed Mobility Training Bed Mobility Training: Yes Overall Level of Assistance: Moderate assistance Rolling: Moderate assistance Supine to Sit: Moderate assistance Sit to Supine: Moderate assistance Scooting: Maximum assistance Balance Sitting: Without support (EOB ~20 mins; toilet SBA) Standing: With support (CGA w/RW) Transfer Training Transfer Training: Yes Overall Level of Assistance: Contact-guard assistance Sit to Stand: Contact-guard assistance Stand to Sit: Contact-guard assistance Toilet Transfer: Contact-guard assistance Gait Overall Level of Assistance: Contact-guard assistance Assistive Device: Walker, rolling;Gait belt AROM: Generally decreased, functional (B shoulder ~100 degrees flexion; WFL otherwise) Strength: Generally decreased, functional (2+/5 B shoulders; 3/5 BUE otherwise) Coordination: Within functional limits Tone: Normal Sensation: Impaired (B hand tingling) ADL Feeding: Independent Grooming: Minimal assistance UE Bathing: Minimal assistance LE Bathing: Maximum assistance UE Dressing: Minimal assistance LE Dressing: Maximum assistance Toileting: Contact guard assistance Additional Comments: Pt supine in bed at start of session. Pt Mod A sup<>sit due to increased neck/shoulder pain following procedure. Pt unable to don/doff B socks currently. CGA sit<>stand/functional mobility/stand<>sit w/RW. VC's for RW management with Fair carry over. CGA and increased time for toileting. Mod A sit<>sup and Max A x2 for lateral scooting to adjust in bed. Pt reports feeling of spasm near surgical site with increased pain. Pain subsides with rest. Activity Tolerance Activity Tolerance: Patient tolerated treatment well Vision Vision: Impaired Vision Exceptions: Wears glasses at all times Hearing Hearing: Within functional limits Cognition Overall Cognitive Status: [facility] Cognition Comment: Pt hyperverbal throughout session Orientation Overall Orientation Status: Within Functional Limits Education Given To: Patient;Family Education Provided: Role of Therapy;Plan of Care;ADL Adaptive Strategies;Transfer Training;Precautions Education Method: Verbal Education Outcome: Verbalized understanding AM-PAC Score AM-PAC Inpatient Daily Activity Raw Score: 17 (09/03/22 144) AM-PAC Inpatient ADL T-Scale Score : 37.26 (09/03/22 144) ADL Inpatient CMS 0-100% Score: 50.11 (10/25/22 1444) ADL Inpatient CMS G-Code Modifier : CK (09/03/22 1444) Goals Short Term Goals Time Frame for Short Term Goals: by discharge Short Term Goal 1: Pt will complete UB ADL's SBA with AE/DME/modified techniques as needed Short Term Goal 2: Pt will complete LB ADL's Min A with AE/DME/modified techniques Short Term Goal 3: Pt will complete functional mobility/transfers SBA w/RW as needed Short Term Goal 4: Pt will demo Good safety during functional activity with 1-2 VC's as needed Patient Goals Patient goals : to get better Therapy Time Individual Concurrent Group Co-treatment Time In 1330 Time Out 1426 Minutes 56 Timed Code Treatment Minutes: 46 Minutes Shanon Ellison OTR/L Images from the original note were not included. [facility] Office: [phone] Rakesh Vu DO, Norman Almeida DO, Feng Castle DO, Raul Noe DO, Margarita Najera MD, Suzette Barton MD, Romie Ashton MD, Maria Guadalupe Dos Santos MD, Xu Monahan MD, Joey Angeles MD, Rey Rocha DO, Renetta Hi MD, Link Spicer DO, Jose Manuel Kearney MD, Harlan Dye MD, Luz Vu DO, Radha Vuong MD, Magan Gant MD, López Castrejon DO, Jossie Dunham MD, Bernarda Wylie MD, Erica Perera MD, Marjorie Ricci MD, Mukul Carter DO, Facundo Caputo MD, Elmo Seth MD, Sonam Burrell CNP, Sabina Gottlieb CNP, Nicole Cody CNP, Tim Buckner CNP, Jennifer Zarate, KARINA, Kate Srivastava CNP, Sangeeta Martinez, MAILER APPRENTICE, Shanita Mansfield, MAILER APPRENTICE, Allie Jimenes CNP, Alyson Orona CNP, Vini Palumbo PA-C, Cynthia Church, DILLAN, Marianna Gimenez, KARINA, Nenita Marion, MAILER APPRENTICE, Jazzy Bejarano, CHEVY, Anaid Mendiola, CHEVY [facility] IN-PATIENT SERVICE [facility] Progress Note 09/03/2022 2:46 PM Name: Kristin Null Acct: [id number] Room: [address] [place] [address] Day: 0 Admit Date: 09/02/2022 6:56 AM PCP: Niki Pearson MD Code Status: Full Code Subjective: C/C: elective spinal fusion surgery Interval History Status: improved. Patient feels better. Patient states that she still has some tingling in bilateral hands, more on the left side. She does not have much pain. She continues to wear the c-collar. Patient states that she uses BiPAP at home. She was noticed to have some desaturation episodes during the day and night and oxygen was put back on. Brief History: 61-year-old female presents to the hospital for elective surgery, C5-7 fusion. Patient has known medical history of type 2 diabetes mellitus, epilepsy, obstructive sleep apnea on BiPAP. Patient states that she is physically quite active at home. Patient underwent surgery on 09/02. Medicine was consulted for medical management Review of Systems: Constitutional: negative for chills, fevers, sweats Respiratory: negative for cough, dyspnea on exertion, shortness of breath, wheezing Cardiovascular: negative for chest pain, chest pressure/discomfort, lower extremity edema, palpitations Gastrointestinal: negative for abdominal pain, constipation, diarrhea, nausea, vomiting Neurological: negative for dizziness, headache Complains of tingling in fingers more on left hand Medications: Allergies: Allergies Allergen Reactions Adhesive Tape Other (See Comments) welts Albumen, Egg Swelling Flu shot Swelling and redness at site Celecoxib Other (See Comments) ulcers Codeine Nausea And Vomiting Glutaral Other (See Comments) Ulcers Nsaids Other (See Comments) Oxaprozin Other (See Comments) GI ulcers Sulfa Antibiotics Other (See Comments) blisters Current Meds: Scheduled Meds: clonazePAM 1.5 mg Oral Nightly carvedilol 6.25 mg Oral BID WC scopolamine 1 patch TransDERmal Q72H sodium chloride flush 5-40 mL IntraVENous 2 times per day acetaminophen 650 mg Oral Q6H phenytoin 30 mg Oral Once per day on Sun Fri Sat melatonin 9 mg Oral Nightly phenytoin 300 mg Oral Nightly ascorbic acid 1,000 mg Oral Daily escitalopram 10 mg Oral Daily gabapentin 800 mg Oral 4x Daily phenytoin 60 mg Oral Once per day on Fri Sat traZODone 100 mg Oral Nightly insulin lispro 0-8 Units SubCUTAneous TID WC insulin lispro 0-4 Units SubCUTAneous Nightly Continuous Infusions: sodium chloride 100 mL/hr at 09/02/22 1447 sodium chloride dextrose dextrose PRN Meds: cyclobenzaprine, docusate sodium, sodium chloride flush, sodium chloride, ondansetron, oxyCODONE-acetaminophen, tiZANidine, glucose, dextrose bolus OR dextrose bolus, glucagon (rDNA), dextrose, glucose, dextrose bolus OR dextrose bolus, glucagon (rDNA), dextrose, hydrALAZINE Data: Past Medical History: has a past medical history of Anxiety, Arthritis, Chronic back pain, COVID-19, COVID-19 vaccination not done, Diabetes mellitus (HCC), Epilepsy (HCC), Gall stones, History of blood transfusion, Numbness around mouth, ADRIANA (obstructive sleep apnea), PONV (postoperative nausea and vomiting), Seasonal allergies, Shoulder pain, and Wellness examination. Social History: reports that she has never smoked. She has never used smokeless tobacco. She reports that she does not currently use alcohol. She reports that she does not use drugs. Family History: Family History Problem Relation Age of Onset Stroke Mother Heart Disease Mother Heart Disease Father Vitals: BP (!) 157/107 Pulse 88 Temp 98.3 F (36.8 C) (Oral) Resp 16 Ht 5' (1.524 m) Wt 164 lb (74.4 kg) SpO2 97% BMI 32.03 kg/m Temp (24hrs), Av.2 F (36.8 C), Min:98.1 F (36.7 C), Max:98.3 F (36.8 C) Recent Labs 09/02/226 09/03/22 0652 09/03/22 1105 POCGLU 132* 140* 122* I/O (24Hr): Intake/Output Summary (Last 24 hours) at 09/03/2022 1446 Last data filed at 09/03/2022 0416 Gross per 24 hour Intake -- Output 1300 ml Net -1300 ml Labs: Hematology: Recent Labs 09/03/22 1103 WBC 10.7 RBC 4.49 HGB 14.0 HCT 43.0 MCV 95.8 MCH 31.2 MCHC 32.6 RDW 13.1 PLT 181 MPV 10.1 Chemistry:No results for input(s): NA, K, CL, CO2, GLUCOSE, BUN, CREATININE, MG, ANIONGAP, LABGLOM, GFRAA, CALCIUM, CAION, PHOS, PSA, PROBNP, TROPHS, CKTOTAL, CKMB, CKMBINDEX, MYOGLOBIN, DIGOXIN, LACTACIDWB in the last 72 hours. Recent Labs 09/02/22 2146 09/03/22 0652 09/03/22 1105 POCGLU 132* 140* 122* ABG:No results found for: POCPH, PHART, PH, POCPCO2, [id number], PCO2, POCPO2, PO2ART, PO2, POCHCO3, YBS1DGV, HCO3, NBEA, PBEA, BEART, BE, THGBART, THB, PBO4ANL, [id number], [id number], O2SAT, FIO2 No results found for: SPECIAL Lab Results Component Value Date/Time CULTURE NO SIGNIFICANT GROWTH 06/17/2022 05:30 PM Radiology: No results found. Physical Examination: General appearance: alert, cooperative and no distress Mental Status: oriented to person, place and time and normal affect Lungs: clear to auscultation bilaterally, normal effort, on nc oxygen Heart: regular rate and rhythm, no murmur Abdomen: soft, nontender, nondistended, normal bowel sounds, no masses, hepatomegaly, splenomegaly Extremities: no edema, redness, tenderness in the calves Skin: no gross lesions, rashes, induration Tingling numbness bilateral hands, more on the left side C-collar in place Assessment: Hospital Problems Last Modified POA * (Principal) S/P cervical spinal fusion 09/02/2022 Yes Type 2 diabetes mellitus, without long-term current use of insulin (HCC) 09/02/2022 Yes Seizure disorder ([facility]) 09/02/2022 Yes Current chronic use of systemic steroids 09/02/2022 Yes Acute respiratory failure with hypoxia ([facility]) 09/03/2022 Yes ADRIANA treated with BiPAP 09/03/2022 Yes Primary hypertension 09/03/2022 Yes Plan: Acute respiratory failure postop-obtain chest x-ray to rule out atelectasis, patient does not have any cough, monitor off antibiotics, wean down oxygen as tolerated, encourage incentive spirometry ADRIANA-use BiPAP at night or daytime naps Spinal stenosis status post cervical spinal fusion Type 2 diabetes mellitus-hold home meds, monitor blood sugars and cover with sliding scale Continue home antiepileptics continue home antihypertensives Hypertension- resume coreg Okay to start anticoagulation on postop day 5 Obtain UA for reported dysuria Jose Manuel Kearney MD 09/03/2022 2:46 PM CLINICAL PHARMACY NOTE: MEDS TO BEDS Total # of Prescriptions Filled: 3 The following medications were delivered to the patient: Colace 100mg Tizanitdine 2mg Percocet 5-325mg Additional Documentation: delivered to patient in room 236 09/03 at 12:14pm. Co-pay $12.86 yoo. 1 visitor at time of delivery. Physical Therapy Facility/Department: [address] ORTHO/MED SURG Physical Therapy Initial Assessment Name: Kristin Null : 1960 Date of Service: 09/03/2022 61 y.o. female who is being POD#1 from: -Anterior cervical diskectomy and fusion, C5-C6 and C6-C7. Discharge Recommendations: No therapy recommended at discharge Patient Diagnosis(es): The encounter diagnosis was Post-op pain. Past Medical History: has a past medical history of Anxiety, Arthritis, Chronic back pain, COVID-19, COVID-19 vaccination not done, Diabetes mellitus (HCC), Epilepsy (HCC), Gall stones, History of blood transfusion, Numbness around mouth, ADRIANA (obstructive sleep apnea), PONV (postoperative nausea and vomiting), Seasonal allergies, Shoulder pain, and Wellness examination. Past Surgical History: has a past surgical history that includes lumbar fusion (1972 1998); Ulnar tunnel release (Right, 1988); Carpal tunnel release (Right, 1984); Breast cyst excision (1989 1990); Tubal ligation (1990); shoulder surgery (Right, 1997); parathyroidectomy (2003); brain surgery (Right, 2004); Cholecystectomy (2006); Knee arthroscopy (Right, 2009); Finger trigger release (Right, 2013); Shoulder arthroscopy (2014); Parotidectomy (Left, 08/07/2020); Colonoscopy; Breast biopsy; Upper gastrointestinal endoscopy; Knee arthroscopy (Right, 02/12/2021); Knee arthroscopy (Left, 2019); and Anterior cervical discectomy w/ fusion (09/02/2022). Assessment Assessment: The pt ambulated 300 ft with a RW x SBA. She ascended/descended 3 steps with SBA. She has no PT needs at this time. DC PT Therapy Prognosis: Good Decision Making: Medium Complexity Requires PT Follow-Up: No Activity Tolerance Activity Tolerance: Patient tolerated treatment well Plan Physcial Therapy Plan General Plan: Discharge with evaluation only Safety Devices Type of Devices: Left in bed, Gait belt, Call light within reach, Nurse notified Restraints Restraints Initially in Place: No Restrictions Restrictions/Precautions Restrictions/Precautions: Seizure Required Braces or Orthoses?: Yes Required Braces or Orthoses Cervical: c-collar Position Activity Restriction Other position/activity restrictions: Activity as tolerated Subjective General Patient assessed for rehabilitation services?: Yes Response To Previous Treatment: Not applicable Family / Caregiver Present: No Follows Commands: Within Functional Limits Subjective Subjective: Pt c/o neck pain 04/19 Social/Functional History Social/Functional History Lives With: Spouse Type of Home: House Home Layout: One level Home Access: Stairs to enter with rails Entrance Stairs - Number of Steps: 2 Entrance Stairs - Rails: Both Bathroom Shower/Tub: Walk-in shower Bathroom Toilet: Handicap height Bathroom Equipment: Grab bars in shower Home Equipment: Walker, rolling, Cane, Sock aid, Long-handled shoehorn Receives Help From: Family ADL Assistance: Independent Homemaking Assistance: Independent Homemaking Responsibilities: Yes Ambulation Assistance: Independent Transfer Assistance: Independent Active Can Patcher: Yes Mode of Transportation: [facility] Occupation: On disability Leisure & Hobbies: Likes biking Vision/Hearing Vision Vision: Impaired Vision Exceptions: Wears glasses at all times Hearing Hearing: Within functional limits Cognition Orientation Overall Orientation Status: Within Functional Limits Cognition Overall Cognitive Status: WFL Objective Heart Rate: 94 Heart Rate Source: Monitor BP: 137/77 BP Location: Right upper arm BP Method: Automatic Patient Position: Semi fowlers MAP (Calculated): 97 Resp: 16 SpO2: 96 % O2 Device: Nasal cannula AROM RLE (degrees) RLE AROM: WNL AROM LLE (degrees) LLE AROM : WNL AROM RUE (degrees) RUE AROM : WFL AROM LUE (degrees) LUE AROM : WFL Strength RLE Strength RLE: WNL Strength LLE Strength LLE: WNL Strength RUE Strength RUE: WFL Strength LUE Strength LUE: WFL Bed mobility Supine to Sit: Stand by assistance Sit to Supine: Stand by assistance Scooting: Stand by assistance Transfers Sit to Stand: Stand by assistance Stand to Sit: Stand by assistance Ambulation Surface: Level tile Device: Rolling Walker Assistance: Stand by assistance Distance: amb 300 ft with a RW x SBA Stairs/Curb Stairs?: Yes Stairs # Steps : 3 Stairs Height: 6 Rails: Bilateral Device: No Device Assistance: Stand by assistance Balance Posture: Good Sitting - Static: Good Sitting - Dynamic: Fair Standing - Static: Good Standing - Dynamic: Fair OutComes Score AM-PAC Score [facility] Inpatient Mobility Raw Score : 24 (09/03/22 1143) [facility] Inpatient T-Scale Score : 61.14 (09/03/22 1143) Mobility Inpatient CMS 0-100% Score: 0 (09/03/22 1143) Mobility Inpatient CMS G-Code Modifier : CH (09/03/22 114) Tinneti Score Goals Short Term Goals Time Frame for Short Term Goals: No PT needs at this time DC PT Education Patient Education Education Given To: Patient Education Provided: Role of Therapy;Plan of Care Education Method: Verbal Barriers to Learning: None Education Outcome: Verbalized understanding Therapy Time Individual Concurrent Group Co-treatment Time In Time Out Minutes La Albert, PT Orthopedic Progress Note Patient: Kristin Null Date of : 1960 61 y.o. female Subjective: Patient seen and examined this morning. Has concerns of muscle soreness in the right shoulder and of increased numbness to the left fingertips. Has chronic dysthesia to bilateral hands and bilateral plantar feet which is chronic and present before surgery. No issues overnight per nursing. Pain is well controlled on current regimen. Denies fever, [place], CP, SOB, N/V, dysuria. Is BM/flatus +. Has been able to ambulate to restroom by self. Vitals reviewed, afebrile Objective: Vitals: 09/03/22 0015 BP: (!) 157/90 Pulse: (!) 102 Resp: 18 Temp: 98.2 F (36.8 C) SpO2: 95% Gen: NAD, cooperative Cardiovascular: Regular rate Respiratory: No acute respiratory distress Musculoskeletal: Cervical / BUE: Dressings are clean, dry, and intact without strike-through. C-collar is in place in good repair. Tender to palpation posterior cervical muscles/upper trapezius muscles on the left. Slight erythema on left shoulder due to OR positioning and adhesive tape utilized. Minimal punctate bruising due to neuromonitoring device utilized in OR. C5-T1 CN grossly motor and sensation grossly intact bilaterally. Median nerve distribution dysthesias on right, present prior to surgery. Dysthesias to distal to the DIP on all five digits on left. Hands warm and well-perfused bilaterally. No results for input(s): WBC, HGB, HCT, PLT, INR, PTT, NA, K, BUN, CREATININE, GLUCOSE in the last 72 hours. Invalid input(s): PT Meds: See rec for complete list Impression 61 y.o. female who is being POD#1 from: -Anterior cervical diskectomy and fusion, C5-C6 and C6-C7. Plan - Antibiotics: Completed post-op ancef - Activity as tolerated - IM consulted for medical management - Dressing on. Okay to reinforce/maintain by nursing if necessary. Please notify Ortho if saturated. - C-collar at all times. Please maintain. - DVT ppx: Okay to start chemical anticoagulation POD#5 - Ice to control pain and edema - Diet: Adult diet okay - Encourage Incentive Spirometry use - PT/OT will evaluate today - Will plan for discharge home later today pending PT evlauation - F/u with Dr. Cruz in 10-14 days from surgery - Please page Ortho afternoon nanny with any questions Theresa Carvajal, DO Orthopedic Surgery Resident, PGY-1 [place], [place] PGY-3 Addendum Patient seen and examined. Agree with Dr. Carvajal's history, physical examination, assessment and plan except where changes were made above (may be highlighted by [employer] author selection feature). Patient has median nerve symptoms on right. States she has been decompressed in past, uninterested in additional surgery. Fingertip paraesthesias on left side. Likely related to decompression of the associated neuro levels, but may be related to poor perfusion and intra-op positioning. Expect this to resolve. Otherwise doing well. Dressing clean, dry and intact. Anticipate DC after PT today. Electronically signed by Apolinar Couch MD at 5:15 AM 09/03/22. Attending Physician Statement I have discussed the care of Kristin Null , including pertinent history and exam findings with the resident. I have seen and examined the patient and the tellez elements of all parts of the encounter have been performed by me. I agree with the assessment, plan and orders as documented by the resident. She is improved neurologically and will be abale to DC home later if not significantly worse dysphagia. Dressing change ok as is sensitive to chlorhexidine scrub. Informed ortho resident on progression of tingling and numbness in patient's left fingers. Seen and examined by ortho resident. Will just watch out for progression of symptoms and weakness of the left arm per ortho resident. Will continue monitoring patient. Updated [employer] on repeat blood pressure of 157/90. Still waiting for dilantin 30mg at bed time coverage for Friday. Will continue to monitor patient. Patient took her own dose of neurontin, clonazepam and dilantin. Told her that still waiting for an order but refused to do so. Referred to [employer] around 22:40 patient's blood pressure of 177/89. Still waiting for response. Will continue monitoring patient. Neuro clearance received for procedure scheduled 09/02/2022 documented in this encounter [employer] Phone: 09-02-2022 Hospital Discharge instructions Theresa Carvajal DO - 09/02/2022 8:56 AM EDT Orthopaedic Instructions: -Activity as tolerated. No excessive bending or twisting with cervical spine. -Do not remove dressings until your post-operative follow up visit. Keep clean & dry. Can remove tegaderm. Do not remove steri-strips. Do nto peel off. If edges begin lifting you can trim the ends. -Wear C-Collar at all times. -Always look for signs of compartment syndrome: pain out of proportion to the injury, pain not controlled with pain medication, numbness in digits, changing of color of digits (paleness). If these signs occur return to ED immediately for reassessment. -Ice (20 minutes on and off 1 hour) to reduce swelling and throbbing pain. -Call the office or come to Emergency Room if signs of infection appear (hot, swollen, red, draining pus, fever) -Take medications as prescribed. -Wean off narcotics (percocet/norco) as soon as possible. Do not take tylenol if still taking narcotics. -Follow up with Dr. Cruz in his office 10-14 days after surgery. Call [phone] to schedule/confirm or with any questions/concerns. documented in this encounter [employer] Phone: 08-28-2022 History of Present illness Narrative Anesthesia Focused Assessment Hx of anesthesia complications: prolonged emergence, PONV Family hx of anesthesia complications: brother- PONV -Moderate/Excellent: >4 climbing >/= 1 flight of stairs without stopping or walking up hill >1-2 blocks Other examples: scrubbing floors, golf, bowling, dancing, tennis Prior + Covid-19 test? 08/2021 Symptoms/Hospitalization?: admitted x 5 days with pneumonia, bilateral Patient vaccinated: no ADRIANA: yes If yes, machine?: bipap Type 1 DM: no T2DM: yes Coronary Artery Disease: no Hypertension: yes, on carvedilol Defib / AICD / Pacemaker: no Renal Failure: no If yes, on dialysis?: Active smoker: no Drinks Alcohol: no Illicit drugs: no Dentition: benign , grinds teeth, wears bite guard Past Medical History: Diagnosis Date Anxiety Arthritis knees, hip, back, fingers Chronic back pain 1972 COVID-19 08/2021 admitted x 5 day; bilateral pneumonia COVID-19 vaccination not done Diabetes mellitus (HCC) Epilepsy (HCC) 1984 Dr. Enrico Burgos Neurologist MARÍA [place] Mo. Has not had a seizure in at least 5 years Gall stones 2006 History of blood transfusion 1972 during spinal fusion surgery. no problems Numbness around mouth left side, chronic, states had mri brain, and following with neuro closely ADRIANA (obstructive sleep apnea) 2006 BiPap machine. Managed by Dr. Burgos Neurologist MARÍA [place] PONV (postoperative nausea and vomiting) Seasonal allergies Shoulder pain Wellness examination 01/24/[address] Niki Pearson [place], [place]; last visit March 2022 Patient was evaluated in PAT & anesthesia guidelines were applied. NPO guidelines, medication instructions and scheduled arrival timewere reviewed with patient. I advised patient/patient family to please contact surgeons office, ahead of time if possible, if any new signs or symptoms of illness, infection, rash, etc. Patient/ patient family verbalize understanding. Anesthesia contacted: no Pt states PCP Dr. Pearson aware of upcoming surgey. Pt states her neurologist Dr. Burgos cleared her, will request copy, states surgeon office has copy. TIFFANIE MENENDEZ CNP Electronically signed 08/28/2022 at 12:45 PM documented in this encounter [place] [place] [employer] Work Phone: 08-27-2022 Hospital Discharge instructions Sheree Brown APRN - MAILER APPRENTICE - 08/27/2022 4:01 PM EDT Pre-operative Instructions NOTHING to eat or drink after midnight the night prior to surgery (This includes gum, candy, mints, chewing tobacco, etc). Please arrive at the surgery center (Entrance B) by 6:40 AM on 09/02/2022 (or as directed by your surgeon's office). See Directons to Surgery Center below. Please take only the following medication(s) the day of surgery with a small sip of water: Dilantin, Gabapentin (Neurontin), Escitalopram (Lexapro) Please stop any blood thinning medications DIRECTED BY PRESCRIBING PROVIDER! : Aspirin, Vitamin E, Fish oil, Garlic, Turmeric, etc Failure to stop these medications as instructed (too soon or too late) may result in injury to you, or your surgery may need to be rescheduled. Below is a list of some examples for your reference. Antiplatelets : (stop blood cells (called platelets) from sticking together and forming a blood clot): Aspirin (Bufferin, Ecotrin), Clopidogrel (Plavix), Ticagrelor (Brilinta), Prasugrel (Effient), Dipyridamole/aspirin (Aggrenox), Ticlopidine (Ticlid), Eptifibatide (Integrilin) Anticoagulants: (slow down your body's process of making clots): Warfarin (Coumadin), Rivaroxaban (Xarelto), Dabigatran (Pradaxa), Apixaban (Eliquis), Edoxaban (Savaysa), Heparin/Enoxaparin (Lovenox), Fondaparinux (Arixtra) NSAIDS: Aspirin (Bufferin, Ecotrin), Ibuprofen (Motrin, Nuprin,Advil), Naproxen (Aleve),Meloxicam (Mobic), Celecoxib (Celebrex), Diclofenac (Voltaren), Etodolac (Lodine), Indomethacin, Ketorolac, Nabumetone, Oxaprozin (Daypro), Piroxicam (Feldene), Excedrin (has aspirin in it) Herbal supplements: Bromelain, Cinnamon, Cayenne Pepper, Dong quai (female ginseng), Fish oil, Garlic, Sarah,Ginkgo biloba, Grape seed extract, Turmeric, Vitamin E, etc....) You may continue the rest of your medications through the night before surgery unless instructed otherwise. If applicable: Do not take diabetic medications on the day of surgery. Please use/bring daily inhalers with you 08/28/22 10:52 AM Signature (Provider) Signature (Patient) Day of Surgery/Procedure As a patient at [facility] you can expect quality medical and nursing care that is centered on your individual needs. Our goal is to make your surgical experience as comfortable as possible Directions to the Surgery Center The surgery Center at [facility] is located in the Emergency Room parking lot on [address] or there is additional parking across the street. The address is [address] [place] [address]. Please check in at the Surgery Center upon arrival. Patient Instructions In case of any illness please contact your surgeons office for instructions prior to coming to the hospital. Due to current restrictions you are only allowed 2 adults to be with you. Masks are to be worn and screening will take place on arrival. Bring your current list of medications, vitamins, herbals and anything you might take on an as needed basis. It is important we have a correct list with dosages and frequencies. Please verify your list with your medications at home or bring all of your bottles with you. If you have been given a blood band be sure to bring it with you on the day of surgery. Do not put it on or close the clasp. Use and bring any inhalers if you are currently using one. It is ok to brush your teeth but do not swallow any water. You may be required to provide a urine sample upon your arrival to the pre-op area, so please take this into consideration prior to using the restroom. No jewelry or piercing's to be worn into surgery because you might be injured because of them. No contact lenses to be worn. It is ok to wear your glasses in pre op but they will be removed prior to going into the operating room. Dentures/partials will likely need to be removed in pre op depending on your type of anesthesia, please do not use adhesives on the day of surgery. Bathe as instructed with the special soap given to you. No lotions, powders or creams after bathing. Wear loose comfortable clothing / shoes that are easy to get on and off over wounds or casts. If you are going to be admitted after surgery please bring your Cpap or BiPap if you have it at home. Keep patient belongings to a minimum and leave valuables at home. If you are staying overnight with us, please bring a SMALL bag of personal items. We cannot accommodate large items, like suitcases. If you are going home after anesthesia or sedation then you must have a responsible adult with you to take you home and to be with you for the first 24 hours after surgery. If you do not have someone to stay with you your surgery might get cancelled. Please contact your surgeon's office to see if other arrangements can be made if you can not find someone to stay with you. If you have any other questions on the day of surgery please contact [phone] or [phone] If you have any other questions regarding your procedure/surgery please call your surgeon's office. documented in this encounter [facility] [employer] Phone: 06-17-2022 Hospital Discharge instructions Shanon Crawford DO - 06/17/2022 8:24 PM EDT You have yeast infection. Please use your prescriptions will be as prescribed. [facility]. Please return the emergency room if you develop any worsening symptoms, abdominal pain, fevers, any other concerning symptoms. documented in this encounter [employer] Phone: 03-30-2022 Note Chief Complaint consultation for sebaceous cyst HPI Staff 61 year old female presents on consultation from Dr. Pearson for sebaceous cyst left arm. History of Present Illness 61 yo female with h/o htn, hyperlipidemia, seizure d/o, ADRIANA, anxiety/depression; referred for possible cyst left forearm; patient reports 1 month h/o painful, swollen lump on right forearm; occurred when she was in [place], got a bug bite; area was swollen and red; erythema resolved, but still has a painful nodule; no drainage; no h/o lump in that area previously; has been using numerous over the counter topical agents without resolution; no asa or NSAID use. Review of Systems PHQ Score Initial Depression Screen Score: 0 ROS - Provider Constitutional: no fever, no sweats, no weight loss. Eyes: no glasses, no blurred vision, no visual loss. ENMT: no dentures, no hoarseness, no swallowing difficulties, no hearing loss, no ear infection(s), no nose bleeds. Cardiovascular: normal blood pressure, no chest pain, regular heartbeat, no heart murmur. Respiratory: no shortness of breath, no cough, no asthma, no wheezing. Gastrointestinal: no nausea, no vomiting, no diarrhea, no constipation, no blood in stool, no change in bowel habits, no abdominal pain, no hepatitis. Genitourinary: no kidney stones, no urine infection, no dysuria. Musculoskeletal: no pain, no weakness. Skin: no changing moles, no rash, yes skin lumps. Neurologic: no seizures, no epilepsy, no headache. Psychiatric: no emotional or psychiatric problem. Heme/Lymph: no bleeding problems, no anemia, no blood clots, no transfusions. Allergy/Immunologic: no swollen lymph nodes/glands, no IV drug abuse. Other: Additional ROS info: Except as noted in the above Review of Systems and in the History of Present Illness, all other systems have been reviewed and are negative or noncontributory. Physical Exam Vitals & Measurements HR: 84(Peripheral) RR: 16 BP: 128/84 HT: 152.4 cm HT: 152.4 cm WT: 76.6 kg WT: 76.6 kg BMI: 32.98 HEENT: normal conjunctiva, sclera clear, no scleral icterus, EOM intact, PERRLA, oral mucosa moist without lesions. Neck: trachea midline, no mass, symmetric, no thyromegaly or nodules, no adenopathy Lymphatic: no cervical adenopathy, Musculoskeletal: normal gait, digits and nails without infection, nodes, cyanosis, clubbing. Skin: no rashes, no lesions, no ulcers, left dorsal forearm with 1 cm area of induration, surrounding edema, no central pore or erythema, no drainage, no fluctuance, no scab or open areas. Psychiatric/Neuro: oriented to time, place, person, judgement normal, affect appropriate for age, insight intact, no focal deficits. Tests: , review of old records completed, Assessment/Plan 1. Insect bite (nonvenomous) of left upper arm, sequela (S40.862S: Insect bite (nonvenomous) of left upper arm, sequela) improving, still with edema, chronic inflammation; recommend topical steroid cream; call with problems/questions. Follow-up No qualifying data available Problem List/Past Medical History Ongoing Anxiety BMI 32.0-32.9,adult Depression Diabetes Eating disorder Granuloma of skin HTN (hypertension) Hyperlipidemia Insomnia Obstructive sleep apnea syndrome Parathyroid adenoma Temporal lobe epilepsy Historical No qualifying data Procedure/Surgical History Arthroscopy of knee (2020), Arthroscopy of knee (2019), Release of trigger finger (2013), Arthroscopy of knee (2009), Cholecystectomy (2006), Parathyroidectomy (2003), Internal impingement of right shoulder (1997), Excision of cyst (1989), Carpal tunnel release, Excision of cyst, History of spinal fusion, Lobectomy of brain, Repair of long head of biceps brachii, Repair of ulnar digital nerve, Rotator cuff repair, Sialendoscope, Tubal ligation, Vaginoscopy. Medications ClonazePAM 0.5 mg Tab, 0.25 mg= 0.5 tab(s), Oral, Once a day (at bedtime) Dilantin 100 mg Cap-ER, 300 mg= 3 cap(s), Oral, Once a day (at bedtime) Dilantin 30 mg oral capsule, extended release gabapentin 800 mg Tab, 800 mg= 1 tab(s), Oral, QID Lexapro 10 mg Tab, 10 mg= 1 tab(s), Oral, Daily Nasonex 50 mcg/inh [place], 1 spray(s), Nasal, BID, PRN traZODONE 50 mg Tab, 50 mg= 1 tab(s), Oral, Once a day (at bedtime) Trelegy Ellipta 100 mcg-62.5 mcg-25 mcg inhalation powder, 1 puff(s), Inhalation, Daily Allergies Adhesive Bandage (Rash) NSAIDs (Gastric ulcer) codeine (Nausea and vomiting) Social History Alcohol - Denies Alcohol Use, 03/29/2022 Substance Abuse - Denies Substance Abuse, 03/29/2022 Tobacco Never (less than 100 in lifetime) Tobacco Use:. Never Smokeless Tobacco Use:., 03/29/2022 Family History Acute myocardial infarction: Father. CAD - Coronary artery disease: Mother. Endometrial carcinoma: Sister. Heart disease: Mother. Osteoporosis: Mother. Ovarian cancer: Mother. Seizure: Brother. [facility] Comment on above: Result Comment: Elec tronically Signed By: GLADYS NAZARIO, Luz Lopez\Date and Time Signed: 03/30/22 11:25 EDT 03-21-2022 Note PROCEDURE: XR FOOT R T MIN 3 VIEWS COMPARISON: None. HISTORY: Pain in right foot FINDINGS: BONES:No acute fracture or dislocation. Mild degenerative changes with marginal osteophyte formation SOFT TISSUES:Negative. No visible soft tissue swelling. EFFUSION:None visible. OTHER: Negative. IMPRESSION: Mild degenerative changes, no acute fracture Electronically authenticated by: ROCÍO REYES Date: 2022-03-21 07:[address] [facility] Evaluation + Plan note No data available for this section General Surgery [place] Evaluation note No assessment inform ation available [facility] Work Phone: Evaluation note Diagnosis Yeast infection involving the vagina and surrounding area- Primary Candidiasis of vulva and vagina documented in this encounter [employer] Work Phone: evaluation note* Diagnosis S/P cervical spinal fusion- Primary Arthrodesis status Post-op pain Other acute postoperative pain Type 2 diabetes mellitus, without long-term current use of insulin (HCC) Seizure disorder (HCC) Unspecified epilepsy without mention of intractable epilepsy Current chronic use of systemic steroids Acute respiratory failure with hypoxia (HCC) Acute respiratory failure ADRIANA treated with BiPAP Primary hypertension Unspecified essential hypertension Atelectasis Pulmonary collapse documented in this encounter [employer] Phone: evaluation note* Diagnosis Cervical stenosis of spinal canal- Primary Spinal stenosis in cervical region Cervical stenosis of spinal canal Spinal stenosis in cervical region S/P cervical spinal fusion Arthrodesis status ADRIANA treated with BiPAP Primary hypertension Unspecified essential hypertension Seizure disorder (HCC) Unspecified epilepsy without mention of intractable epilepsy Type 2 diabetes mellitus, without long-term current use of insulin (HCC) Insomnia Insomnia, unspecified documented in this encounter [facility] [employer] Phone: evaluation note* Diagnosis Acute postoperative pain- Primary Other acute postoperative pain Acute carpal tunnel syndrome of right wrist [facility]* Diagnosis Acute carpal tunnel syndrome of right wrist- Primary Seizure (CMS/HCC) Other convulsions Allodynia Disturbance of skin sensation Cervical radiculopathy Brachial neuritis or radiculitis nos Complex partial seizure with impairment of consciousness (CMS/HCC) Localization-related (focal) (partial) epilepsy and epileptic syndromes with complex partial seizures, without mention of intractable epilepsy documented in this encounter [facility] HealthcareEvaluation note* Diagnosis Other nerve root and plexus disorders- Primary Chronic insomnia Insomnia, unspecified 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 Allergic rhinitis due to animal (cat) (dog) hair and dander Focal epilepsy (CMS/HCC) Trochanteric bursitis, right hip documented in this encounter [facility] Discharge instructions No data available for this section General Surgery Daniel Assessments Diagnosis Preop testing- Primary Preoperative examination, unspecified Diagnosis Post-op pain- Primary Other acute postoperative pain Advance Directives Documents on File Type Date Recorded Patient Stack Attendant Expl anation ACP-Advance Directive ACP-Advance Directive 01/29/2021 1:55 PM ACP-Power of Professor Of Biochemistry ACP-Power of Professor Of Biochemistry 01/29/2021 1:55 PM Documents on File Type Date Recorded Patient Stack Attendant Expl anation ACP-Advance Directive ACP-Advance Directive 01/29/2021 1:55 PM ACP-Power of Professor Of Biochemistry ACP-Power of Professor Of Biochemistry 01/29/2021 1:55 PM Documents on File Type Date Recorded Patient Stack Attendant Expl anation ACP-Advance Directive 01/29/2021 1:55 PM ACP-Power of Professor Of Biochemistry 01/29/2021 1:55 PM Documents on File Type Date Recorded Patient Stack Attendant Expl anation ACP-Advance Directive 01/29/2021 1:55 PM ACP-Power of Professor Of Biochemistry 01/29/2021 1:55 PM Latest Code Status on File Code Status Date Activated Date Inactivated Comments Full Code 09/02/2022 1:06 PM Latest Code Status on File Code Status Date Activated Date Inactivated Comments Full Code 10/28/2022 10:14 AM Full Code 09/02/2022 1:06 PM 09/04/2022 5:56 PM Latest Code Status on File Code Status Date Activated Date Inactivated Comments Full Code 10/28/2022 10:14 AM 10/29/2022 6:10 PM Code Status History Code Status Date Activated Date Inactivated Comments Full Code 09/02/2022 1:06 PM 09/04/2022 5:56 PM Summary Purpose Family History No Family History Records FoundNo Family History Records FoundNo Family History Records FoundNo Family History Records FoundNo Family History Records FoundNo Family History Records FoundNo Family History Records FoundNo Family History Records FoundNo Family History Records Found Discharge Instructions * Instructions* Olivia Rene RN - 02/12/2021 Orthopedic Instructions: -Weight bearing status: Weight bearing as tolerated for the right leg -Keep dressing clean and dry. -Do not remove dressings -Starting 3 days after surgery, Ok to shower but no soaks in a bath, hot tub, pool, etc -Ice (20 minutes on and off 1 hour) and elevate above the level of the heart to reduce swelling andthrobbing pain. -Drink plenty of fluids. -Should urinate within 8 hours of surgery. -Call the office or come to Emergency Room if signs of infection appear (hot, swollen, red, draining pus, fever) -Take medications as prescribed. -Follow up with Dr. Cruz in their office 10-14 days after surgery. Call [phone] to schedule/confirm. No alcoholic beverages, no driving or operating machinery, no making important decisions for 24 hours. You may have a normal diet but should eat lightly day of surgery. Drink plenty of fluids. Urinate within 8 hours after surgery, if unable to urinate call your doctor documented in this encounter Additional Source Comments INFORMATION SOURCE (unrecogn ized section and content) DATE CREATED AUTHOR 02/10/2021 Helen Mcguire DATE CREATED AUTHOR AUTHOR'S ORGANIZ ATION 03/31/2022 [facility] DATE CREATED AUTHOR AUTHOR'S ORGANIZ ATION 04/13/2022 [facility] DATE CREATED AUTHOR AUTHOR'S ORGANIZ ATION 04/26/2022 [facility] DATE CREATED AUTHOR AUTHOR'S ORGANIZ ATION 04/26/2022 [facility] DATE CREATED AUTHOR AUTHOR'S ORGANIZ ATION 03/19/2023 [facility] DATE CREATED AUTHOR AUTHOR'S ORGANIZ ATION 02/12/2024 [facility] DATE CREATED AUTHOR AUTHOR'S ORGANIZ ATION 09/22/2024 [facility] DATE CREATED AUTHOR AUTHOR'S ORGANIZ ATION 09/26/2024 [facility] EPIC Reason for Visit (unrecogniz ed section and content) Status Reason Specialty Diagnoses / Procedures Referre d By Contact Referred To Contact Diagnoses Acute medial meniscal tear Lateral meniscus tear MEDIAL MENISCAL TEAR, LATERAL MENISCUS TEAR Procedures MT ARTHRS KNE SURG W/MENISCECTOMY MED/LAT W/SHVG MT ARTHRS KNEE W/MENISCECTOMY MED&LAT W/SHAVING KNEE ARTHROSCOPY WITH MENISCECTOMY right Endy Cruz MD [address] [place] [address] [facility] Reason Comments Groin Swelling Specialty Diagnoses / Procedures Referred By Contac t Referred To Contact Diagnoses 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) STENOSIS OF CERVICAL SPINE WITH MYELOPATHY Procedures MT OFFICE/OUTPT VISIT,PROCEDURE ONLY MT ARTHRODESIS ANT INTERBODY INC DISCECTOMY, CERVICAL BELOW C2 MT ARTHRODESIS ANT INTERBODY INC DISCECTOMY CERVICAL BELOW C2 EA ADDL MT INSJ BIOMCHN DEV INTERVERTEBRAL DSC SPC W/ARTHRD MT ALLOGRAFT FOR SPINE SURGERY ONLY MORSELIZED AUTOGRAFT SPINE SURGERY LOCAL FROM SAME INCISION ANTERIOR CERVICAL DISECTOMY FUSION C5,6 AND C6,7 WITH SSEP MONITORING ( GLOBUS)-EVOKES# LOVE, CONF#[id number] Endy Cruz MD [address] [place] [address] [facility] [address] [place] [address] Referral ID Status Reason Start Date Expiration Date Visits Re quested Visits Authorized [id number] 1 1 Specialty Diagnoses / Procedures Referred By Eric jay Referred To Contact Diagnoses 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) Spondylosis CERVICAL STENOSIS WITH MYELOPATHY, SPONDYLOSIS Procedures MT TOTAL DISC ARTHROPLASTY, CERVICAL, SINGLE MT ARTHRODESIS ANT INTERBODY INC DISCECTOMY, CERVICAL BELOW C2 MT ARTHRODESIS ANT INTERBODY INC DISCECTOMY CERVICAL BELOW C2 EA ADDL MT INSJ BIOMCHN DEV INTERVERTEBRAL DSC SPC W/ARTHRD MT ALLOGRAFT FOR SPINE SURGERY ONLY MORSELIZED AUTOGRAFT SPINE SURGERY LOCAL FROM SAME INCISION MT TOTAL DISC ARTHROPLASTY, CERVICAL, SINGLE MT TOT DISC ARTHRP ANT APPR DISC 2ND LEVEL CERVICAL ANTERIOR CERVICAL DISC ARTHROPLASTY C3-4, C4-5 (KYLIE BIOMET MOBI-C, SUPINE) SHORT STAY Endy Cruz MD [address] [place] [address] [facility] [address] [place] [address] Referral ID Status Reason Start Date Expiration Date Visits Re quested Visits Authorized [id number] 1 1 Specialty Diagnoses / Procedures Referred By Eric jay Referred To Contact Diagnoses Right carpal tunnel syndrome Right carpal tunnel syndrome [G56.01] Procedures MT NEUROPLASTY &/TRANSPOS MEDIAN NRV CARPAL TUNNE RIGHT CARPAL TUNNEL RELEASE Endy Cruz MD [address] [place] [address] [facility] [id number] [place] [phone] Referral ID Status Reason Start Date Expiration Date Visits Re quested Visits Authorized [id number] 1 1 Ordered Prescriptions (unrec ognized section and content) Prescription Sig Dispensed Refills Start Date End Da te HYDROcodone-acetaminophe n (NORCO) 5-325 MG per tabletIndications:Post-o p pain Take 1 tablet by mouth every 4 hours as needed for Pain for up to 7 days. Intended supply: 7 days. Take lowest dose possible to manage pain 42 tablet 0 02/12/2021 02/19/2021 Prescription Sig Dispensed Refills Start Date End Da te HYDROcodone-acetaminop hen (NORCO) 5-325 MG per tabletIndications:Yeas t infection involving the vagina and surrounding area Take 1 tablet by mouth every 6 hours as needed for Pain for up to 3 days. 10 tablet 0 06/17/2022 06/20/2022 phenazopyridine (PYRIDIUM) 100 MG tablet Take 1 tablet by mouth 3 times daily as needed for Pain 10 tablet 0 06/17/2022 06/20/2022 clobetasol (TEMOVATE) 0.05 % ointment Apply topically 2 times daily as needed (vulvar discomfort) Apply topically 2 times daily. 1 each 1 06/17/2022 lidocaine (XYLOCAINE) 5 % ointment Apply topically 3 times daily as needed for Pain Apply topically as needed. 1 each 0 06/17/2022 fluconazole (DIFLUCAN) 150 MG tablet Take 1 tablet by mouth once for 1 dose Take after completion of doxycycline and macrobid 1 tablet 1 06/17/2022 06/17/2022 nystatin (MYCOSTATIN) [id number] UNIT/GM ointment Apply topically 2 times daily. 1 each 1 06/17/2022 nitrofurantoin, macrocrystal-monohydra te, (MACROBID) 100 MG capsule Take 1 capsule by mouth in the morning and 1 capsule before bedtime. Do all this for 5 days. 10 capsule 0 06/17/2022 06/22/2022 doxycycline hyclate (VIBRA-TABS) 100 MG tablet Take 1 tablet by mouth in the morning and 1 tablet before bedtime. Do all this for 7 days. 14 tablet 0 06/17/2022 06/24/2022 Prescription Sig Dispensed Refills Start Date End Da te docusate sodium (COLACE) 100 MG capsule Take 1 capsule by mouth 2 times daily 60 capsule 0 09/03/2022 10/03/2022 oxyCODONE-acetaminophen (PERCOCET) 5-325 MG per tabletIndications:Post- op pain Take 1 tablet by mouth every 6 hours as needed for Pain for up to 7 days. Intended supply: 7 days. Take lowest dose possible to manage pain 28 tablet 0 09/02/2022 09/09/2022 tiZANidine (ZANAFLEX) 2 MG tablet Take 1 tablet by mouth every 6 hours as needed (for pain) 28 tablet 0 09/02/2022 09/16/2022 Prescription Sig Dispensed Refills Start Date End Da te gabapentin (NEURONTIN) 800 MG tablet Take 1 tablet by mouth 2 times daily for 10 days. 90 tablet 3 10/29/2022 11/08/2022 cephALEXin (KEFLEX) 500 MG capsule Take 1 capsule by mouth 3 times daily for 7 days 21 capsule 0 10/29/2022 11/05/2022 oxyCODONE-acetaminophen (PERCOCET) 5-325 MG per tabletIndications:Cervic al stenosis of spinal canal,S/P cervical spinal fusion Take 1 tablet by mouth every 4 hours as needed for Pain for up to 7 days. 30 tablet 0 10/28/2022 11/04/2022 gabapentin (NEURONTIN) 800 MG tablet Take 2 tablets by mouth at bedtime for 7 doses. 90 tablet 3 10/29/2022 10/29/2022 Prescription Sig Dispensed Refills Start Date End Da te HYDROcodone-acetaminophe n (NORCO) 5-325 MG per tabletIndications:Acute postoperative pain Take 1 tablet by mouth every 6 hours as needed for Pain for up to 3 days. Intended supply: 3 days. Take lowest dose possible to manage pain Max Daily Amount: 4 tablets 10 tablet 0 11/06/2023 11/09/2023 Care Teams (unrecognized sec tion and content) Team Status: Inactive Member Role Status Dates Marito Villalobos MD Attending Provider Active Social Work Msw Relationship Specialty Start Date End Date Davie Hernandes PCP - General 07/20/12 Social Work Msw Relationship Specialty Start Date End Date Niki Pearosn MD [address] [id number] PCP - General Family Medicine 08/28/22 Social Work Msw Relationship Specialty Start Date End Date Niki Pearson MD [address] [place] [address] PCP - General Family Medicine 08/28/22 Social Work Msw Relationship Specialty Start Date End Date Niki Pearson MD [address] [place] [address] PCP - General Family Medicine 08/28/22 Social Work Msw Relationship Specialty Start Date End Date Niki Pearson MD [address] [place] [address] PCP - General Family Medicine 08/28/22 Goals (unrecognized section and content) Goals may be documented in a n alternate section Scheduled Active and Recently Administ ered Medications (unrecognized section and content) Medication Order 06/15/2022 06/16/2022 06/17/2022 oxyCODONE (ROXICODONE) immediate release tablet 5 mg (COMPLETED) 5 mg, Oral, ONCE, 1 dose, On Fri06/17/22 at 1815 1813 (Given - Provid er: Tracy Patiño RN) Scheduled Medication Order 09/02/2022 09/03/2022 09/04/2022 acetaminophen (TYLENOL) tablet 650 mg 650 mg, Oral, EVERY 6 HOURS, First dose on Fri09/02/22 at 1330, Until Discontinued, Maximum dose of acetaminophen is 4000 mg from all sources in 24 hours. 1559 (Not Given - Provider: Jacqui Renteria RN - Reason: Patient/family refused)2150 (Given - Provider: Praneeth Currie RN) 0133 (Given - Provider: Praneeth Currie RN)0625 (Given - Provider: Praneeth Currie RN)1445 (Not Given - Provider: Jacqui Renteria RN - Reason: Patient/family refused)1944 (Given - Provider: Praneeth Currie RN) 0148 (Given - Provider: Praneeth Currie RN)0648 (Given - Provider: Praneeth Currie RN)1340 (Not Given - Provider: Jacqui Renteria RN - Reason: Patient/family refused)1930 (Due) ascorbic acid (VITAMIN C) tablet 1,000 mg 1,000 mg, Oral, DAILY, First dose on Fri09/02/22 at 2030, Until Discontinued 2253 (Not Given - Provider: Praneeth Currie RN - Reason: Patient/family refused) 0756 (Given - Provider: Manuel Kaplan RN) 0839 (Given - Provider: Jacqui Renteria RN) carvedilol (COREG) tablet 6.25 mg 6.25 mg, Oral, 2 TIMES DAILY WITH MEALS, First dose on Fri09/03/22 at 1700, Until Discontinued, Administer with food to minimize the risk of orthostatic hypotension 1649 (Given - Provider: Jacqui Renteira RN) 0839 (Given - Provider: Jacqui Renteria RN)1700 (Due) ceFAZolin (ANCEF) 2000 mg in sterile water 20 mL IV syringe (COMPLETED) 2,000 mg, IntraVENous, ONCE, 1 dose, On Fri09/02/22 at 0745, Antimicrobial Indications: Surgical Prophylaxis, On way to or Administer over 5 mins., Pre-op (day of surgery) 921 (Given - Provider: Theresa Bernal APRN - FERMENTING CELLARS RECEIVER) ceFAZolin (ANCEF) 2000 mg in sterile water 20 mL IV syringe (CANCELED) 2,000 mg, IntraVENous, EVERY 8 HOURS, 2 doses, First dose on Fri09/02/22 at 1700, Last dose on Fri09/03/22 at 0100, Antimicrobial Indications: Surgical Prophylaxis, Administer over 5 mins., Post-op 164 (Given - Provider: Jacqui Renteria RN) clonazePAM (KLONOPIN) tablet 1.5 mg 1.5 mg, Oral, NIGHTLY, First dose on Fri09/03/22 at 0030, Until Discontinued 0020 (Not Given - Provider: Praneeth Currie RN - Reason: Other - Comment: Patient took home dose)2108 (Not Given - Provider: Praneeth Currie RN - Reason: Patient/family refused)2311 (Given - Provider: Praneeth Currie RN) 2100 (Due) dexamethasone (DECADRON) injection 2 mg (COMPLETED) 2 mg, IntraVENous, EVERY 8 HOURS, First dose on Fri09/02/22 at 1700, For 3 doses 164 (Given - Provider: Jacqui Renteria RN) 0133 (Given - Provider: Praneeth Currie RN)075 (Given - Provider: Manuel Kaplan RN) escitalopram (LEXAPRO) tablet 10 mg 10 mg, Oral, DAILY, First dose on Fri09/02/22 at 2030, Until Discontinued 225 (Not Given - Provider: Praneeth Currie RN - Reason: Patient/family refused) 0756 (Given - Provider: Manuel Kaplan RN) 0839 (Given - Provider: Jacqui Renteria, RN) gabapentin (NEURONTIN) capsule 1,600 mg 1,600 mg, Oral, NIGHTLY, First dose on Fri09/04/22 at 0045, Until Discontinued 0154 (Given - Provider: Praneeth Currie RN)2100 (Due) gabapentin (NEURONTIN) tablet 800 mg (CANCELED) 800 mg, Oral, 4 TIMES DAILY, First dose on Fri09/02/22 at 2100, Until Discontinued 225 (Not Given - Provider: Praneeth Currie RN - Reason: Patient/family refused) 0759 (Given - Provider: Manuel Kaplan, RN)1400 (Not Given - Provider: Manuel Kaplan RN - Reason: Patient/family refused)1649 (Given - Provider: Jacqui Renteria RN)2332 (Not Given - Provider: Praneeth Currie RN - Reason: Patient/family refused) gabapentin (NEURONTIN) tablet 800 mg 800 mg, Oral, 2 TIMES DAILY BEFORE MEALS, First dose on Fri09/04/22 at 0700, Until Discontinued 0658 (Given - Provider: Praneeth Currie RN)1600 (Due) glipiZIDE (GLUCOTROL) tablet 5 mg (CANCELED) 5 mg, Oral, DAILY, First dose on Fri09/02/22 at 2030, Until Discontinued 225 (Given - Provider: Praneeth Currie RN) insulin lispro (HUMALOG) injection vial 0-4 Units 0-4 Units, SubCUTAneous, NIGHTLY, First dose on Fri09/02/22 at 2100, Until Discontinued, If continuous tube feedings/TPN/NPO, give correction dose based on result, no reduction in dose. If eating or bolus tube feeding: Corrective Bedtime Algorithm Glucose: Dose: 70-299 No Insulin 300-349 4 Units Over 349 4 Units and notify physician 2154 (Not Given - Provider: Praneeth Currie RN - Reason: Order parameters not met - Comment: Blood sugar: 132) 2105 (Not Given - Provider: Praneeth Currie RN - Reason: Order parameters not met - Comment: Blood sugar: 163) 2099 (Due) insulin lispro (HUMALOG) injection vial 0-8 Units 0-8 Units, SubCUTAneous, 3 TIMES DAILY WITH MEALS, First dose on Fri09/03/22 at 0800, Until Discontinued, Medium Dose Corrective Algorithm Glucose: Dose: 70-199 No Insulin 200-249 2 Units 250-299 4 Units 300-349 6 Units Over 349 8 Units and notify physician 0753 (Not Given - Provider: Manuel Kaplan RN - Reason: Order parameters not met)1121 (Not Given - Provider: Manuel Kaplan RN - Reason: Order parameters not met)1616 (Not Given - Provider: Jacqui Renteria RN - Reason: Order parameters not met - Comment: BS 189) 0723 (Not Given - Provider: Jacqui Renteria RN - Reason: Order parameters not met - Comment: 127)1150 (Not Given - Provider: Jacqui Renteria RN - Reason: Order parameters not met)1700 (Due) ipratropium-albuterol (DUONEB) nebulizer solution 1 ampule 1 ampule, Inhalation, EVERY 4 HOURS WHILE AWAKE, First dose on Fri09/04/22 at 1200, Until Discontinued, Initiate RT Bronchodilator Protocol: Yes - Inpatient Protocol 1056 (Not Given - Provider: LUCIA DAS - Reason: Patient/family refused)1535 (Not Given - Provider: Sonam Sauceda RCP - Reason: Patient not available)1999 (Due) melatonin tablet 9 mg 9 mg, Oral, NIGHTLY, First dose on Fri09/02/22 at 2100, Until Discontinued 2154 (Given - Provider: Praneeth Currie RN) 230 (Given - Provider: Praneeth Currie RN) 2100 (Due) phenytoin (DILANTIN) ER capsule 30 mg 30 mg, Oral, USER SPECIFIED (Once per day on Fri), First dose on Fri09/04/22 at 1800, Until Discontinued, Tube feeding interaction, obtain physician order to manage. Recommend holding TF for 1 hour before and 1 hour after dose. 1800 (Due) phenytoin (DILANTIN) ER capsule 60 mg 60 mg, Oral, USER SPECIFIED (Once per day on Fri Sat), First dose on Fri09/03/22 at 2100, Until Discontinued, Tube feeding interaction, obtain physician order to manage. Recommend holding TF for 1 hour before and 1 hour after dose. 2305 (Given - Provider: Praneeth Currie RN) phenytoin (PHENYTEK) ER capsule 300 mg 300 mg, Oral, NIGHTLY, First dose on Fri09/02/22 at 2100, Until Discontinued, Tube feeding interaction, obtain physician order to manage. Recommend holding TF for 1 hour before and 1 hour after dose. 2252 (Not Given - Provider: Praneeth Currie RN - Reason: Patient/family refused) 2306 (Given - Provider: Praneeth Currie RN) 2099 (Due) pioglitazone (ACTOS) tablet 15 mg (CANCELED) 15 mg, Oral, DAILY, First dose on Fri09/02/22 at 2030, Until Discontinued 2252 (Given - Provider: Praneeth Currie RN) scopolamine (TRANSDERM-SCOP) transdermal patch 1 patch 1 patch, TransDERmal, Administer over 72 Hours, EVERY 72 HOURS, First dose on Fri09/02/22 at 0815, delivers 1 mg over 3 days. Apply patch to hairless area behind the ear. 808 (Patch Applied - Provider: Sandra Jones RN - Comment: behind right ear) sodium chloride flush 0.9 % injection 5-40 mL 5-40 mL, IntraVENous, EVERY 12 HOURS SCHEDULED (2 times per day), First dose on Fri09/02/22 at 2100, Until Discontinued, For Line Patency: Peripheral IV = 5 mL; Midline or Central Line = 10 mL/lumen. If following IV push medication, administer flush at same rate as the IV push. Flush volume is determined by type of infusion therapy being given. For non-viscous solutions use: Peripheral IV = 5 mL Midline or Central Line = 10 mL/lumen For viscous solutions (i.e. blood components, parenteral nutrition, contrast media, or after obtaining blood sample) use: Peripheral IV = 10 mL Midline or Central Line = 20 mL/lumen 2155 (Not Given - Provider: Praneeth Currie RN - Reason: IV Fluid Infusing) 075 (Given - Provider: Manuel Kaplan RN)2106 (Not Given - Provider: Praneeth Currie RN - Reason: IV Fluid Infusing) 0840 (Given - Provider: Jacqui Renteria RN)2099 (Due) traZODone (DESYREL) tablet 100 mg 100 mg, Oral, NIGHTLY, First dose on Fri09/02/22 at 2100, Until Discontinued 2344 (Given - Provider: Praneeth Currie RN) 2106 (Not Given - Provider: Praneeth Currie RN - Reason: Patient/family refused)2313 (Given - Provider: Praneeth Currie RN) 2100 (Due) Continuous Medication Order 09/02/2022 09/03/2022 09/04/2022 0.9 % sodium chloride infusion (CANCELED) IntraVENous, at 100 mL/hr, CONTINUOUS, Starting on Fri09/02/22 at 1330, May decrease/DC as patient tolerates PO intake and voids well (> or = 0.5 cc/kg/h). 1447 (New Bag - Provider: Jacqui Renteria RN) 2105 (New Bag - Provider: Praneeth Currie RN) 1503 (Stopped - Provider: Jacqui Renteria RN) lactated ringers infusion 1,000 mL (CANCELED) 1,000 mL, IntraVENous, at 50 mL/hr, CONTINUOUS, Starting on Fri09/02/22 at 0745, Pre-op (day of surgery) 0809 (New Bag - Provider: Sandra Jones RN)0901 (Paused - Provider: TIFFANIE Marshall CRNA - Comment: Switch to gravity)0902 (Restarted - Provider: TIFFANIE Marshall CRNA)0915 (Canceled Entry - Provider: TIFFANIE Marshall CRNA)1129 (Anesthesia Volume Adjustment - Provider: TIFFANIE Marshall CRNA) PRN Medication Order 09/02/2022 09/03/2022 09/04/2022 0.9 % sodium chloride infusion IntraVENous, at 5-250 mL/hr, PRN, if patient receiving piggyback infusions and maintenance fluids are not ordered OR KVO fluids to protect IV site / prevent frequent line interruptions/ long duration, Starting on Fri09/02/22 at 1306, For piggyback infusion, administer at same rate as piggyback for a total of 25 mL. Enter 25 mL into dose field and piggyback rate into rate field of order. If piggyback is infusing at a rate less than 100 mL/hr, enter 25 mL into dose field and 100 mL/hr into rate field of order. For KVO fluids, enter rate of 20 mL/hr or less into rate field of order. 1502 (Stopped - Provider: Jacqui Renteria RN) bupivacaine-EPINEPHrine (MARCAINE-w/EPINEPHRINE) 0.25% -[id number] injection (CANCELED) PRN, Starting on Fri09/02/22 at 0943, Until Fri09/02/22 at 1126, Intra-op 0943 (Given - Provider: Endy Cruz MD - Comment: INJECTED AT OP SITE) cyclobenzaprine (FLEXERIL) tablet 5 mg 5 mg, Oral, NIGHTLY PRN, Starting on Fri09/03/22 at 2100, Until Discontinued, Muscle spasms 2150 (Given - Provider: Praneeth Currie RN) dextrose 10 % infusion IntraVENous, at 100 mL/hr, CONTINUOUS PRN, if blood glucose remains LESS THAN 70 mg/dL after 2 dextrose 10% intravenous boluses or administration of glucagon, Starting on Fri09/02/22 at 2009, If blood glucose fails to stabilize after 2 dextrose 10% intravenous boluses or glucagon administration, start dextrose 10% infusion at 100 mL/hour and repeat blood glucose at 30 and 60 minutes. If blood glucose is GREATER THAN 70 mg/dL after 60 minutes, discontinue dextrose 10% infusion. 1502 (Stopped - Provider: Jacqui Renteria RN) dextrose 10 % infusion IntraVENous, at 100 mL/hr, CONTINUOUS PRN, if blood glucose remains LESS THAN 70 mg/dL after 2 dextrose 10% intravenous boluses or administration of glucagon, Starting on Fri09/02/22 at 1957, If blood glucose fails to stabilize after 2 dextrose 10% intravenous boluses or glucagon administration, start dextrose 10% infusion at 100 mL/hour and repeat blood glucose at 30 and 60 minutes. If blood glucose is GREATER THAN 70 mg/dL after 60 minutes, discontinue dextrose 10% infusion. 1502 (Stopped - Provider: Jacqui Renteria RN) dextrose bolus 10% 125 mL(Linked Group 1) 125 mL, IntraVENous, at 937.5 mL/hr, Administer over 8 Minutes, PRN, Other, Blood glucose 40 - 69 mg/dL and patient NOT ALERT or NPO, Starting on Fri09/02/22 at 2009, Repeat blood glucose in 15 minutes. If blood glucose remains LESS THAN 70 mg/dL, repeat treatment and recheck blood glucose in 15 minutes x 2. If using glycemic management system, dose as instructed per system. If blood glucose remains LESS THAN 70 mg/dL after 2 intravenous boluses start dextrose 10% at 100 mL/hour and notify provider. dextrose bolus 10% 125 mL(Linked Group 2) 125 mL, IntraVENous, at 937.5 mL/hr, Administer over 8 Minutes, PRN, Other, Blood glucose 40 - 69 mg/dL and patient NOT ALERT or NPO, Starting on Fri09/02/22 at 1957, Repeat blood glucose in 15 minutes. If blood glucose remains LESS THAN 70 mg/dL, repeat treatment and recheck blood glucose in 15 minutes x 2. If using glycemic management system, dose as instructed per system. If blood glucose remains LESS THAN 70 mg/dL after 2 intravenous boluses start dextrose 10% at 100 mL/hour and notify provider. dextrose bolus 10% 250 mL(Linked Group 1) 250 mL, IntraVENous, at 937.5 mL/hr, Administer over 16 Minutes, PRN, Other, Blood glucose LESS THAN 40 mg/dL and patient NOT ALERT or NPO, Starting on Fri09/02/22 at 2010, Repeat blood glucose in 15 minutes. If blood glucose remains LESS THAN 70 mg/dL, repeat treatment and recheck blood glucose in 15 minutes x 2. If using glycemic management system, dose as instructed per system. If blood glucose remains LESS THAN 70 mg/dL after 2 intravenous boluses start dextrose 10% at 100 mL/hour and notify provider. dextrose bolus 10% 250 mL(Linked Group 2) 250 mL, IntraVENous, at 937.5 mL/hr, Administer over 16 Minutes, PRN, Other, Blood glucose LESS THAN 40 mg/dL and patient NOT ALERT or NPO, Starting on Fri09/02/22 at 1957, Repeat blood glucose in 15 minutes. If blood glucose remains LESS THAN 70 mg/dL, repeat treatment and recheck blood glucose in 15 minutes x 2. If using glycemic management system, dose as instructed per system. If blood glucose remains LESS THAN 70 mg/dL after 2 intravenous boluses start dextrose 10% at 100 mL/hour and notify provider. docusate sodium (COLACE) capsule 100 mg 100 mg, Oral, 2 TIMES DAILY PRN, Starting on Fri09/03/22 at 0400, Until Discontinued, Constipation, Do not crush or break. gelatin adsorbable (GELFOAM) sponge (CANCELED) PRN, Starting on Fri09/02/22 at 1005, Intra-op 1005 (Given - Provider: Endy Cruz MD - Comment: GIVEN TO STERILE FIELD USED PRN) glucagon (rDNA) injection 1 mg 1 mg, SubCUTAneous, PRN, Starting on Fri09/02/22 at 2009, Until Discontinued, Low blood sugar, Blood glucose LESS THAN 70 mg/dL and patient NOT ALERT or NPO and does not have IV access., After administration, attempt intravenous access and start dextrose 10% at 100 mL/hr. Repeat blood glucose in 15 minutes x 2 and notify provider. glucagon (rDNA) injection 1 mg 1 mg, IntraMUSCular, PRN, Starting on Fri09/02/22 at 1956, Until Discontinued, Low blood sugar, Blood glucose less than 70 mg/dL and patient NOT ALERT or NPO and does not have IV access., After administration, attempt intravenous access and start D5W at 100 mL/hr. Repeat blood glucose in 15 minutes x2 and notify provider. glucose chewable tablet 16 g 16 g (4 tablet), Oral, PRN, Starting on Fri09/02/22 at 2009, Until Discontinued, Low blood sugar, If blood glucose is LESS THAN 70 mg/dL and patient is alert and tolerating oral. Give 4 tablets (16g) Repeat blood glucose in 15 minutes. If blood glucose is LESS THAN 70 mg/dL, repeat treatment and recheck blood glucose in 15 minutes x 2. If blood glucose remains LESS THAN 70 mg/dL, notify provider. glucose chewable tablet 16 g 16 g (4 tablet), Oral, PRN, Starting on Fri09/02/22 at 195, Until Discontinued, Low blood sugar, If blood glucose is LESS THAN 70 mg/dL and patient is alert and tolerating oral. Give 4 tablets (16g) Repeat blood glucose in 15 minutes. If blood glucose is LESS THAN 70 mg/dL, repeat treatment and recheck blood glucose in 15 minutes x 2. If blood glucose remains LESS THAN 70 mg/dL, notify provider. hydrALAZINE (APRESOLINE) injection 10 mg 10 mg, IntraVENous, EVERY 6 HOURS PRN, Starting on Fri09/02/22 at 2315, Until Discontinued, High Blood Pressure, SBP > 150 2330 (Given - Provider: Praneeth Currie RN) iopamidol (ISOVUE-370) 76 % injection 75 mL (COMPLETED) 75 mL, IntraVENous, IMG ONCE PRN, 1 dose, Starting on Fri09/04/22 at 0428, Until Fri09/04/22 at 0428, Other 0428 (Given - Provider: Tia Benton - Comment: [id number] 02/2025) morphine (PF) injection 2 mg (COMPLETED) 2 mg, IntraVENous, EVERY 5 MIN PRN, 4 doses, Starting on Fri09/02/22 at 1143, Until Fri09/02/22 at 1233, Pain Severe (7-10), For Phase I. If Phase II oral narcotics have been administered in the last 60 minutes, do not administer IV narcotics unless specifically approved by provider., PACU only 1209 (Given - Provider: Kayleigh Munguia RN)1215 (Given - Provider: Kayleigh Munguia, RN)1226 (Given - Provider: Kayleigh Munguia, RN)1233 (Given - Provider: Kayleigh Munguia RN) ondansetron (ZOFRAN) injection 4 mg 4 mg, IntraVENous, EVERY 6 HOURS PRN, Starting on Fri09/02/22 at 1306, Until Discontinued, Nausea, Vomiting oxyCODONE-acetaminophen (PERCOCET) 5-325 MG per tablet 1 tablet Mg/kg dosing is based on the oxycodone component., 1 tablet, Oral, EVERY 4 HOURS PRN, Starting on Fri09/02/22 at 1306, Until Discontinued, Pain Moderate (4-6), Pain Severe (7-10), Maximum dose of acetaminophen is 4000 mg from all sources in 24 hours. 1648 (Given - Provider: Jacqui Renteria RN)2211 (Given - Provider: Praneeth Currie RN) 0411 (Given - Provider: Praneeth Currie RN)0804 (Given - Provider: Manuel Kaplan RN)1444 (Given - Provider: Jacqui Renteria, RN)2302 (Given - Provider: Praneeth Currie, RN) 0840 (Given - Provider: Jacqui Renteria, RN) sodium chloride 0.9 % irrigation (CANCELED) CONTINUOUS PRN, Starting on Fri09/02/22 at 1005, Intra-op 1005 (New Bag - Provider: Endy Cruz MD - Comment: POURED TO STERILE FIELD USED PRN) sodium chloride flush 0.9 % injection 5-40 mL 5-40 mL, IntraVENous, PRN, Starting on Fri09/02/22 at 1306, Until Discontinued, Line Care, After every IV line use, For Line Patency: Peripheral IV = 5 mL; Midline or Central Line = 10 mL/lumen. If following IV push medication, administer flush at same rate as the IV push. Flush volume is determined by type of infusion therapy being given. For non-viscous solutions use: Peripheral IV = 5 mL Midline or Central Line = 10 mL/lumen For viscous solutions (i.e. blood components, parenteral nutrition, contrast media, or after obtaining blood sample) use: Peripheral IV = 10 mL Midline or Central Line = 20 mL/lumen thrombin kit (CANCELED) PRN, Starting on Fri09/02/22 at 1005, Intra-op 1005 (Given - Provider: Endy Cruz MD - Comment: POURED TO STERILE FIELD USED PRN) tiZANidine (ZANAFLEX) tablet 4 mg 4 mg, Oral, EVERY 6 HOURS PRN, Starting on Fri09/02/22 at 1306, Until Discontinued, Muscle spasms 1255 (Given - Provider: Manuel Kaplan RN) Linked Groups Order Group 1: dextrose bolus 10% 125 mLJump to med 125 mL, IntraVENous, at 937.5 mL/hr, Administer over 8 Minutes, PRN, Other, Blood glucose 40 - 69 mg/dL and patient NOT ALERT or NPO, Starting on Fri09/02/22 at 2009
Repeat blood glucose in 15 minutes. If blood glucose remains LESS THAN 70 mg/dL, repeat treatment and recheck blood glucose in 15 minutes x 2. If using glycemic management system, dose as instructed per system. If blood glucose remains LESS THAN 70 mg/dL after 2 intravenous boluses start dextrose 10% at 100 mL/hour and notify provider.
Or dextrose bolus 10% 250 mLJump to med 250 mL, IntraVENous, at 937.5 mL/hr, Administer over 16 Minutes, PRN, Other, Blood glucose LESS THAN 40 mg/dL and patient NOT ALERT or NPO, Starting on Fri09/02/22 at 2009
Repeat blood glucose in 15 minutes. If blood glucose remains LESS THAN 70 mg/dL, repeat treatment and recheck blood glucose in 15 minutes x 2. If using glycemic management system, dose as instructed per system. If blood glucose remains LESS THAN 70 mg/dL after 2 intravenous boluses start dextrose 10% at 100 mL/hour and notify provider.
Group 2: dextrose bolus 10% 125 mLJump to med 125 mL, IntraVENous, at 937.5 mL/hr, Administer over 8 Minutes, PRN, Other, Blood glucose 40 - 69 mg/dL and patient NOT ALERT or NPO, Starting on Fri09/02/22 at 1957
Repeat blood glucose in 15 minutes. If blood glucose remains LESS THAN 70 mg/dL, repeat treatment and recheck blood glucose in 15 minutes x 2. If using glycemic management system, dose as instructed per system. If blood glucose remains LESS THAN 70 mg/dL after 2 intravenous boluses start dextrose 10% at 100 mL/hour and notify provider.
Or dextrose bolus 10% 250 mLJump to med 250 mL, IntraVENous, at 937.5 mL/hr, Administer over 16 Minutes, PRN, Other, Blood glucose LESS THAN 40 mg/dL and patient NOT ALERT or NPO, Starting on Fri09/02/22 at 1957
Repeat blood glucose in 15 minutes. If blood glucose remains LESS THAN 70 mg/dL, repeat treatment and recheck blood glucose in 15 minutes x 2. If using glycemic management system, dose as instructed per system. If blood glucose remains LESS THAN 70 mg/dL after 2 intravenous boluses start dextrose 10% at 100 mL/hour and notify provider.
Scheduled Medication Order 10/27/2022 10/28/2022 10/29/2022 busPIRone (BUSPAR) tablet 10 mg 10 mg, Oral, DAILY, First dose on Fri10/28/22 at 1200, Until Discontinued 1314 (Given - Provider: Manuel Kaplan RN) 0907 (Given - Provider: Deloris Chong RN) calcium carbonate tablet 600 mg 600 mg, Oral, 2 TIMES DAILY WITH MEALS, First dose on Fri10/28/22 at 1200, Until Discontinued 1315 (Given - Provider: Manuel Kaplan RN)1525 (Not Given - Provider: Manuel Kaplan RN - Reason: Order parameters not met) 0907 (Given - Provider: Deloris Chong RN)1700 (Due) carvedilol (COREG) tablet 6.25 mg 6.25 mg, Oral, 2 TIMES DAILY WITH MEALS, First dose on Fri10/28/22 at 1700, Until Discontinued, Administer with food to minimize the risk of orthostatic hypotension 1527 (Given - Provider: Manuel Kaplan RN) 0907 (Given - Provider: Deloris Chong, [place])1700 (Due) ceFAZolin (ANCEF) 2000 mg in sterile water 20 mL IV syringe (COMPLETED) 2,000 mg, IntraVENous, ONCE, 1 dose, On Fri10/28/22 at 0715, Antimicrobial Indications: Surgical Prophylaxis, Administer over 5 mins. 0749 (Given - Provider: Cm Serrano APRN - F[employer]MENTING [employer]LLARS RECEIVER) ceFAZolin (ANCEF) 2000 mg in sterile water 20 mL IV syringe (COMPLETED) 2,000 mg, IntraVENous, EVERY 8 HOURS, 2 doses, First dose on Fri10/28/22 at 1600, Last dose on Fri10/29/22 at 0000, Antimicrobial Indications: Surgical Prophylaxis, Administer over 5 mins. 1645 (Given - Provider: Manuel Kaplan RN) 0034 (Given - Provider: Jacqui Renteria RN) cetirizine (ZYRTEC) tablet 10 mg 10 mg, Oral, DAILY, 3 doses, First dose on Fri10/28/22 at 1200, Last dose on Fri10/30/22 at 0900 1315 (Not Given - Provider: Manuel Kaplan RN - Reason: Patient/family refused) 0907 (Given - Provider: Deloris Chong RN) clonazePAM (KLONOPIN) tablet 1.5 mg 1.5 mg, Oral, NIGHTLY, First dose on Fri10/28/22 at 2100, Until Discontinued 2214 (Given - Provider: Jacqui Renteria, RN) 2100 (Due) dexamethasone (DECADRON) injection 4 mg (COMPLETED) 4 mg, IntraVENous, EVERY 8 HOURS, First dose on Fri10/28/22 at 1545, For 3 doses 1527 (Given - Provider: Manuel Kaplan RN) 0034 (Given - Provider: Jacqui Renteria, [place])0622 (Given - Provider: Jacqui Renteria RN) escitalopram (LEXAPRO) tablet 10 mg 10 mg, Oral, DAILY, First dose on Fri10/28/22 at 1200, Until Discontinued 1314 (Not Given - Provider: Maneul Kaplan RN - Reason: Patient took at home) 0907 (Given - Provider: Deloris Chong RN) fluticasone (FLONASE) 50 MCG/ACT nasal spray 1 spray 1 spray, Each Nostril, DAILY, First dose on Fri10/28/22 at 1200, Until Discontinued, Substituted for Mometasone (NASONEX). 1312 (Given - Provider: Manuel Kaplan RN) 0908 (Given - Provider: Deloris Chong RN) gabapentin (NEURONTIN) tablet 1,600 mg (CANCELED) 1,600 mg, Oral, Nightly, 8 doses, First dose on Fri10/28/22 at 2315, Last dose on Fri11/04/22 at 2100, 1600 mg at nighttime 2314 (Given - Provider: Jacqui Renteria, RN) gabapentin (NEURONTIN) tablet 800 mg (CANCELED) 800 mg, Oral, 4 TIMES DAILY, First dose on Fri10/28/22 at 1345, Until Discontinued 1527 (Given - Provider: Manuel Kaplan RN)2214 (Not Given - Provider: Jacqui Renteria RN - Reason: Other) gabapentin (NEURONTIN) tablet 800 mg 800 mg, Oral, USER SPECIFIED (2 times per day), First dose (after last modification) on Fri10/29/22 at 0600, Until Discontinued, 800 mg - Morning 800 mg - Noon 0908 (Given - Provid er: Deloris Chong RN)1150 (Given - Provider: Deloris Chong RN) glipiZIDE (GLUCOTROL) tablet 5 mg 5 mg, Oral, DAILY, First dose on Fri10/28/22 at 1200, Until Discontinued 1314 (Not Given - Provider: Manuel Kaplan RN - Reason: Other) 0907 (Given - Provider: Deloris Chong RN) insulin lispro (HUMALOG) injection vial 0-4 Units 0-4 Units, SubCUTAneous, 3 TIMES DAILY WITH MEALS, First dose on Fri10/28/22 at 1700, Until Discontinued, Corrective Low Dose Algorithm Glucose: Dose: 70-199 No Insulin 200-249 1 Unit 250-299 2 Units 300-349 3 Units Over 349 4 Units and notify physician 1643 (Not Given - Provider: Manuel Kaplan RN - Reason: Order parameters not met) 0902 (Not Given - Provider: Deloris Chong RN - Reason: Order parameters not met)1151 (Not Given - Provider: Deloris M Bengela, RN - Reason: Order parameters not met)1699 (Due) insulin lispro (HUMALOG) injection vial 0-4 Units 0-4 Units, SubCUTAneous, NIGHTLY, First dose on Fri10/28/22 at 2100, Until Discontinued, If continuous tube feedings/TPN/NPO, give correction dose based on result, no reduction in dose. If eating or bolus tube feeding: Corrective Bedtime Algorithm Glucose: Dose: 70-299 No Insulin 300-349 4 Units Over 349 4 Units and notify physician 2155 (Not Given - Provider: Jacqui Renteria RN - Reason: Order parameters not met - Comment: BS 136) 2099 (Due) melatonin tablet 9 mg 9 mg, Oral, NIGHTLY, First dose on Fri10/28/22 at 2100, Until Discontinued 2212 (Given - Provider: Jacqui Renteria RN) 2099 (Due) phenytoin (DILANTIN) ER capsule 30 mg 30 mg, Oral, USER SPECIFIED (Once per day on Sun Fri), First dose on Fri10/28/22 at 2100, Until Discontinued, Tube feeding interaction, obtain physician order to manage. Recommend holding TF for 1 hour before and 1 hour after dose. 2211 (Given - Provider: Jacqui Renteria RN) phenytoin (DILANTIN) ER capsule 60 mg 60 mg, Oral, USER SPECIFIED (Once per day on Fri), First dose on Fri10/29/22 at 2100, Until Discontinued, Tube feeding interaction, obtain physician order to manage. Recommend holding TF for 1 hour before and 1 hour after dose. 2099 (Due) phenytoin (PHENYTEK) ER capsule 300 mg 300 mg, Oral, NIGHTLY, First dose on Fri10/28/22 at 2100, Until Discontinued, Tube feeding interaction, obtain physician order to manage. Recommend holding TF for 1 hour before and 1 hour after dose. 2210 (Given - Provider: Jacqui Renteria RN) 2099 (Due) pioglitazone (ACTOS) tablet 15 mg 15 mg, Oral, DAILY, First dose on Fri10/28/22 at 1215, Until Discontinued 1315 (Given - Provider: Manuel Kaplan RN) 0908 (Given - Provider: Deloris Chong, [place]) scopolamine (TRANSDERM-SCOP) transdermal patch 1 patch 1 patch, TransDERmal, Administer over 72 Hours, EVERY 72 HOURS, First dose on Fri10/28/22 at 0800, delivers 1 mg over 3 days. Apply patch to hairless area behind the ear. 0725 (Patch Applied - Provider: Nadia Mata RN - Comment: Behind right ear) sodium chloride flush 0.9 % injection 10 mL 10 mL, IntraVENous, EVERY 12 HOURS SCHEDULED (2 times per day), First dose on Fri10/28/22 at 1030, Until Discontinued 1357 (Canceled Entry - Provider: Manuel Kaplan RN)2142 (Not Given - Provider: Jacqui Renteria RN - Reason: IV Fluid Infusing) 0902 (Not Given - Provider: Deloris Chong RN - Reason: IV Fluid Infusing)2100 (Due) traZODone (DESYREL) tablet 100 mg 100 mg, Oral, NIGHTLY, First dose on Fri10/28/22 at 2100, Until Discontinued 222 (Given - Provider: Jacqui Renteria RN) 2100 (Due) Vitamin D (CHOLECALCIFEROL) tablet 6,000 Units Labeling may look different. 25 ovu=1650 Units. Please double check dosages., 6,000 Units, Oral, DAILY, First dose on Fri10/29/22 at 0900, Until Discontinued 0908 (Given - Provid er: Deloris Chong RN) Continuous Medication Order 10/27/2022 10/28/2022 10/29/2022 lactated ringers infusion 125 mL/hr, IntraVENous, CONTINUOUS, Starting on Fri10/28/22 at 1030, Continue until urine output > 30 cc/hr and patient has resumed normal oral intake 1159 (New Bag - Provider: Manuel Kaplan, [place]) 0627 (New Bag - Provider: Jacqui Renteria RN) PRN Medication Order 10/27/2022 10/28/2022 10/29/2022 0.9 % sodium chloride infusion IntraVENous, at 5-250 mL/hr, PRN, if patient receiving piggyback infusions and maintenance fluids are not ordered OR KVO fluids to protect IV site / prevent frequent line interruptions/ long duration, Starting on Fri10/28/22 at 1010, For piggyback infusion, administer at same rate as piggyback for a total of 25 mL. Enter 25 mL into dose field and piggyback rate into rate field of order. If piggyback is infusing at a rate less than 100 mL/hr, enter 25 mL into dose field and 100 mL/hr into rate field of order. For KVO fluids, enter rate of 20 mL/hr or less into rate field of order. bupivacaine-EPINEPHrine (MARCAINE-w/EPINEPHRINE) 0.25% -[id number] injection (CANCELED) PRN, Starting on Fri10/28/22 at 0810, Until Fri10/28/22 at 1008, Intra-op 0810 (Given - Provider: Endy Cruz MD - Comment: OP SITE INJECTION) cyclobenzaprine (FLEXERIL) tablet 5 mg (CANCELED) 5 mg, Oral, NIGHTLY PRN, Starting on Fri10/28/22 at 2100, Until Fri10/29/22 at 0726, Muscle spasms 2214 (Given - Provider: Jacqui Renteria RN) dextrose 10 % infusion IntraVENous, at 100 mL/hr, CONTINUOUS PRN, if blood glucose remains LESS THAN 70 mg/dL after 2 dextrose 10% intravenous boluses or administration of glucagon, Starting on Fri10/28/22 at 1355, If blood glucose fails to stabilize after 2 dextrose 10% intravenous boluses or glucagon administration, start dextrose 10% infusion at 100 mL/hour and repeat blood glucose at 30 and 60 minutes. If blood glucose is GREATER THAN 70 mg/dL after 60 minutes, discontinue dextrose 10% infusion. dextrose bolus 10% 125 mL(Linked Group 1) 125 mL, IntraVENous, at 937.5 mL/hr, Administer over 8 Minutes, PRN, Other, Blood glucose 40 - 69 mg/dL and patient NOT ALERT or NPO, Starting on Fri10/28/22 at 1355, Repeat blood glucose in 15 minutes. If blood glucose remains LESS THAN 70 mg/dL, repeat treatment and recheck blood glucose in 15 minutes x 2. If using glycemic management system, dose as instructed per system. If blood glucose remains LESS THAN 70 mg/dL after 2 intravenous boluses start dextrose 10% at 100 mL/hour and notify provider. dextrose bolus 10% 250 mL(Linked Group 1) 250 mL, IntraVENous, at 937.5 mL/hr, Administer over 16 Minutes, PRN, Other, Blood glucose LESS THAN 40 mg/dL and patient NOT ALERT or NPO, Starting on Fri10/28/22 at 1355, Repeat blood glucose in 15 minutes. If blood glucose remains LESS THAN 70 mg/dL, repeat treatment and recheck blood glucose in 15 minutes x 2. If using glycemic management system, dose as instructed per system. If blood glucose remains LESS THAN 70 mg/dL after 2 intravenous boluses start dextrose 10% at 100 mL/hour and notify provider. gelatin adsorbable (GELFOAM) sponge (CANCELED) PRN, Starting on Fri10/28/22 at 0821, Intra-op 0821 (Given - Provider: Endy Cruz MD - Comment: PASSED TO STERILE FIELD, USED PRN) glucagon (rDNA) injection 1 mg 1 mg, IntraMUSCular, PRN, Starting on Fri10/28/22 at 1355, Until Discontinued, Low blood sugar, Blood glucose less than 70 mg/dL and patient NOT ALERT or NPO and does not have IV access., After administration, attempt intravenous access and start D5W at 100 mL/hr. Repeat blood glucose in 15 minutes x2 and notify provider. glucose chewable tablet 16 g 16 g (4 tablet), Oral, PRN, Starting on Fri10/28/22 at 1355, Until Discontinued, Low blood sugar, If blood glucose is LESS THAN 70 mg/dL and patient is alert and tolerating oral. Give 4 tablets (16g) Repeat blood glucose in 15 minutes. If blood glucose is LESS THAN 70 mg/dL, repeat treatment and recheck blood glucose in 15 minutes x 2. If blood glucose remains LESS THAN 70 mg/dL, notify provider. HYDROmorphone (DILAUDID) injection 0.25 mg (CANCELED) HYDROmorphone (DILAUDID) 1.5mg IV is equivalent to morphine 10mg IV, 0.25 mg, IntraVENous, EVERY 5 MIN PRN, 2 doses, Starting on Fri10/28/22 at 1016, Until Fri10/28/22 at 1132, Pain Moderate (4-6), For Phase I. If Phase II oral narcotics have been administered in the last 60 minutes, do not administer IV narcotics unless specifically approved by provider., PACU only 1107 (Given - Provider: Warren Karimi RN) HYDROmorphone (DILAUDID) injection 0.5 mg (COMPLETED) HYDROmorphone (DILAUDID) 1.5mg IV is equivalent to morphine 10mg IV, 0.5 mg, IntraVENous, EVERY 5 MIN PRN, 2 doses, Starting on Fri10/28/22 at 1016, Until Discontinued, Pain Severe (7-10), For Phase I. If Phase II oral narcotics have been administered in the last 60 minutes, do not administer IV narcotics unless specifically approved by provider., PACU only 1023 (Given - Provider: Warren Karimi RN)1037 (Given - Provider: Warren Karimi RN) morphine (PF) injection 2 mg(Linked Group 2) 2 mg, IntraVENous, EVERY 2 HOURS PRN, Starting on Fri10/28/22 at 1010, Until Discontinued, Pain Moderate (4-6), If oral and IV narcotics ordered, use oral first and only use IV if oral is ineffective or cannot take oral. Do Not give oral and IV within 1 hour of each other unless specifically ordered. 1945 (Given - Provider: Jacqui Renteria RN) morphine (PF) injection 4 mg(Linked Group 2) 4 mg, IntraVENous, EVERY 2 HOURS PRN, Starting on Fri10/28/22 at 1010, Until Discontinued, Pain Severe (7-10), If oral and IV narcotics ordered, use oral first and only use IV if oral is ineffective or cannot take oral. Do Not give oral and IV within 1 hour of each other unless specifically ordered. 1945 (See Alternative - Provider: Jacqui Renteria RN) ondansetron (ZOFRAN) injection 4 mg(Linked Group 3) 4 mg, IntraVENous, EVERY 6 HOURS PRN, Starting on Fri10/28/22 at 1010, Until Discontinued, Nausea, Vomiting, Administer if oral route cannot be used. ondansetron (ZOFRAN) injection 4 mg (COMPLETED) 4 mg, IntraVENous, ONCE PRN, 1 dose, Starting on Fri10/28/22 at 1030, Until Fri10/28/22 at 1032, Nausea, Vomiting 1032 (Given - Provider: Warren Karimi RN) ondansetron (ZOFRAN-ODT) disintegrating tablet 4 mg(Linked Group 3) 4 mg, Oral, EVERY 8 HOURS PRN, Starting on Fri10/28/22 at 1010, Until Discontinued, Nausea, Vomiting oxyCODONE-acetaminophen (PERCOCET) 5-325 MG per tablet 1 tablet Mg/kg dosing is based on the oxycodone component., 1 tablet, Oral, EVERY 4 HOURS PRN, Starting on Fri10/28/22 at 1035, Until Discontinued, Pain Moderate (4-6), Please use oral meds over IV if possible, Maximum dose of acetaminophen is 4000 mg from all sources in 24 hours. 2214 (Given - Provider: Jacqui Renteria RN) 0314 (Given - Provider: Jacqui Renteria, RN)0730 (Given - Provider: Jacqui Renteria RN)1150 (Given - Provider: Deloris Chong RN) oxyCODONE-acetaminophen (PERCOCET) 5-325 MG per tablet 2 tablet Mg/kg dosing is based on the oxycodone component., 2 tablet, Oral, EVERY 4 HOURS PRN, Starting on Fri10/28/22 at 1033, Until Discontinued, Pain Moderate (4-6), Pain Severe (7-10), Please use oral meds over IV if possible, Maximum dose of acetaminophen is 4000 mg from all sources in 24 hours. 1311 (Given - Provider: Manuel Kaplan, [place])1753 (Given - Provider: Manuel Kaplan, [place]) polyethylene glycol (GLYCOLAX) packet 17 g 17 g, Oral, DAILY PRN, Starting on Fri10/28/22 at 1010, Until Discontinued, Constipation, First line therapy for constipation 2309 (Given - Provider: Jacqui Renteria RN) sodium chloride 0.9 % irrigation (COMPLETED) CONTINUOUS PRN, Starting on Fri10/28/22 at 0821, Intra-op 0821 (New Bag - Provider: Endy Cruz MD - Comment: POURED TO STERILE FIELD USED PRN) sodium chloride flush 0.9 % injection 10 mL 10 mL, IntraVENous, PRN, Starting on Fri10/28/22 at 1010, Until Discontinued, Line Care, After every IV line use thrombin kit (CANCELED) PRN, Starting on Fri10/28/22 at 0822, Intra-op 0822 (Given - Provider: Endy Cruz MD - Comment: POURED TO STERILE FIELD, USED PRN) tiZANidine (ZANAFLEX) tablet 4 mg 4 mg, Oral, EVERY 6 HOURS PRN, Starting on Fri10/29/22 at 0726, Until Discontinued, Muscle spasms Linked Groups Order Group 1: dextrose bolus 10% 125 mLJump to med 125 mL, IntraVENous, at 937.5 mL/hr, Administer over 8 Minutes, PRN, Other, Blood glucose 40 - 69 mg/dL and patient NOT ALERT or NPO, Starting on Fri10/28/22 at 1355
Repeat blood glucose in 15 minutes. If blood glucose remains LESS THAN 70 mg/dL, repeat treatment and recheck blood glucose in 15 minutes x 2. If using glycemic management system, dose as instructed per system. If blood glucose remains LESS THAN 70 mg/dL after 2 intravenous boluses start dextrose 10% at 100 mL/hour and notify provider.
Or dextrose bolus 10% 250 mLJump to med 250 mL, IntraVENous, at 937.5 mL/hr, Administer over 16 Minutes, PRN, Other, Blood glucose LESS THAN 40 mg/dL and patient NOT ALERT or NPO, Starting on Fri10/28/22 at 1355
Repeat blood glucose in 15 minutes. If blood glucose remains LESS THAN 70 mg/dL, repeat treatment and recheck blood glucose in 15 minutes x 2. If using glycemic management system, dose as instructed per system. If blood glucose remains LESS THAN 70 mg/dL after 2 intravenous boluses start dextrose 10% at 100 mL/hour and notify provider.
Group 2: morphine (PF) injection 2 mgJump to med 2 mg, IntraVENous, EVERY 2 HOURS PRN, Starting on Fri10/28/22 at 1010, Until Discontinued, Pain Moderate (4-6)
If oral and IV narcotics ordered, use oral first and only use IV if oral is ineffective or cannot take oral. Do Not give oral and IV within 1 hour of each other unless specifically ordered.
Or morphine (PF) injection 4 mgJump to med 4 mg, IntraVENous, EVERY 2 HOURS PRN, Starting on Fri10/28/22 at 1010, Until Discontinued, Pain Severe (7-10)
If oral and IV narcotics ordered, use oral first and only use IV if oral is ineffective or cannot take oral. Do Not give oral and IV within 1 hour of each other unless specifically ordered.
Group 3: ondansetron (ZOFRAN-ODT) disintegrating tablet 4 mgJump to med 4 mg, Oral, EVERY 8 HOURS PRN, Starting on Fri10/28/22 at 1010, Until Discontinued, Nausea, Vomiting Or ondansetron (ZOFRAN) injection 4 mgJump to med 4 mg, IntraVENous, EVERY 6 HOURS PRN, Starting on Fri10/28/22 at 1010, Until Discontinued, Nausea, Vomiting
Administer if oral route cannot be used.
Scheduled Medication Order 11/04/2023 11/05/2023 11/06/2023 ceFAZolin (ANCEF) 2,000 mg in sodium chloride 0.9 % 50 mL IVPB (mini-bag) (COMPLETED) 2,000 mg, IntraVENous, PRODUCT APPLICATIONS SCIENTIST TO O.R., 1 dose, On Sonia 11/06/23 at 1100, Antimicrobial Indications: Surgical Prophylaxis, Pre-op (day of surgery) 1248 (New Bag - Prov ider: Alicia Jalloh, UTILIZATION MANAGEMENT MANAGER - FERMENTING CELLARS RECEIVER) HYDROcodone-acetaminophen (NORCO) 5-325 MG per tablet 1 tablet (COMPLETED) 1 tablet, Oral, ONCE, 1 dose, On Sonia 11/06/23 at 1400, Maximum dose of acetaminophen is 4000 mg from all sources in 24 hours. 1333 (Given - Provid er: Ashly Patterson RN) sodium chloride flush 0.9 % injection 5-40 mL 5-40 mL, IntraVENous, EVERY 12 HOURS SCHEDULED (2 times per day), First dose on Sonia 11/06/23 at 1100, Until Discontinued, For Line Patency: Peripheral IV = 5 mL; Midline or Central Line = 10 mL/lumen. If following IV push medication, administer flush at same rate as the IV push. Flush volume is determined by type of infusion therapy being given. For non-viscous solutions use: Peripheral IV = 5 mL Midline or Central Line = 10 mL/lumen For viscous solutions (i.e. blood components, parenteral nutrition, contrast media, or after obtaining blood sample) use: Peripheral IV = 10 mL Midline or Central Line = 20 mL/lumen, Pre-op (day of surgery) 1100 (Due)2100 (Due) sodium chloride flush 0.9 % injection 5-40 mL 5-40 mL, IntraVENous, EVERY 12 HOURS SCHEDULED (2 times per day), First dose on Sonia 11/06/23 at 2100, Until Discontinued, For Line Patency: Peripheral IV = 5 mL; Midline or Central Line = 10 mL/lumen. If following IV push medication, administer flush at same rate as the IV push. Flush volume is determined by type of infusion therapy being given. For non-viscous solutions use: Peripheral IV = 5 mL Midline or Central Line = 10 mL/lumen For viscous solutions (i.e. blood components, parenteral nutrition, contrast media, or after obtaining blood sample) use: Peripheral IV = 10 mL Midline or Central Line = 20 mL/lumen, PACU only 2100 (Due) Continuous Medication Order 11/04/2023 11/05/2023 11/06/2023 lactated ringers IV soln infusion IntraVENous, at 125 mL/hr, CONTINUOUS, Starting on Sonia 11/06/23 at 1100, Pre-op (day of surgery) 1100 (Due) PRN Medication Order 11/04/2023 11/05/2023 11/06/2023 0.9 % sodium chloride infusion IntraVENous, at 5-250 mL/hr, PRN, if patient receiving piggyback infusions and maintenance fluids are not ordered OR KVO fluids to protect IV site / prevent frequent line interruptions/ long duration, Starting on Sonia 11/06/23 at 1035, For piggyback infusion, administer at same rate as piggyback for a total of 25 mL. Enter 25 mL into dose field and piggyback rate into rate field of order. If piggyback is infusing at a rate less than 100 mL/hr, enter 25 mL into dose field and 100 mL/hr into rate field of order. For KVO fluids, enter rate of 20 mL/hr or less into rate field of order., Pre-op (day of surgery) 1110 (New Bag - Prov ider: Jenna Yang RN)1239 (NoRateChange - Provider: TIFFANIE Davidson CRNA)1240 (Paused - Provider: TIFFANIE Davidson CRNA - Comment: Switch to gravity)1241 (Restarted - Provider: TIFFANIE Davidson CRNA) 0.9 % sodium chloride infusion IntraVENous, at 5-250 mL/hr, PRN, if patient receiving piggyback infusions and maintenance fluids are not ordered OR KVO fluids to protect IV site / prevent frequent line interruptions/ long duration, Starting on Sonia 11/06/23 at 1307, For piggyback infusion, administer at same rate as piggyback for a total of 25 mL. Enter 25 mL into dose field and piggyback rate into rate field of order. If piggyback is infusing at a rate less than 100 mL/hr, enter 25 mL into dose field and 100 mL/hr into rate field of order. For KVO fluids, enter rate of 20 mL/hr or less into rate field of order., PACU only bupivacaine-EPINEPHrine (MARCAINE-w/EPINEPHRINE) 0.25% -1:[id number] injection (CANCELED) PRN, Starting on Sonia 11/06/23 at 1247, Until Sonia 12 at 1315, Intra-op 1247 (Given - Provid er: Endy Cruz MD - Comment: operative site injected prior to prep) hydrALAZINE (APRESOLINE) injection 10 mg(Linked Group 1) 10 mg, IntraVENous, EVERY 15 MIN PRN, 2 doses, Starting on Sonia 11/06/23 at 1307, Until Discontinued, High Blood Pressure, for SBP greater than 180 mmHg for 2 consecutive measurements taken from different sites, If heart rate is greater than 60 bpm, hold hydralazine and use labetalol if ordered, otherwise contact provider. Inform provider if SBP is still greater than 180 mmHg 10 minutes after second antihypertensive dose is administered., PACU only HYDROmorphone (DILAUDID) injection 0.3 mg 0.3 mg, IntraVENous, EVERY 5 MIN PRN, 2 doses, Starting on Sonia 12 at 1307, Until Discontinued, Pain Moderate (4-6), For Phase I. If Phase II oral narcotics have been administered in the last 60 minutes, do not administer IV narcotics unless specifically approved by provider., PACU only HYDROmorphone (DILAUDID) injection 0.5 mg 0.5 mg, IntraVENous, EVERY 5 MIN PRN, 2 doses, Starting on Sonia 12 at 1307, Until Discontinued, Pain Severe (7-10), For Phase I. If Phase II oral narcotics have been administered in the last 60 minutes, do not administer IV narcotics unless specifically approved by provider., PACU only labetalol (NORMODYNE;TRANDATE) injection 10 mg(Linked Group 1) 10 mg, IntraVENous, EVERY 15 MIN PRN, 2 doses, Starting on Sonia 11/06/23 at 1307, Until Discontinued, High Blood Pressure, for SBP greater than 180 mmHg for 2 consecutive measurements taken from different sites., If heart rate is 60 bpm or less hold labetalol and use hydralazine if ordered, otherwise contact provider. Inform provider if SBP is still greater than 180 mmHg, 10 minutes after second antihypertensive dose is administered., PACU only prochlorperazine (COMPAZINE) injection 5 mg 5 mg, IntraVENous, ONCE PRN, 1 dose, Starting on Sonia 11/06/23 at 1307, Until Fri11/07/23 at 1307, Nausea, Initial antiemetic therapy., PACU only sodium chloride flush 0.9 % injection 5-40 mL 5-40 mL, IntraVENous, PRN, Starting on Sonia 11/06/23 at 1035, Until Discontinued, Line Care, After every IV line use, For Line Patency: Peripheral IV = 5 mL; Midline or Central Line = 10 mL/lumen. If following IV push medication, administer flush at same rate as the IV push. Flush volume is determined by type of infusion therapy being given. For non-viscous solutions use: Peripheral IV = 5 mL Midline or Central Line = 10 mL/lumen For viscous solutions (i.e. blood components, parenteral nutrition, contrast media, or after obtaining blood sample) use: Peripheral IV = 10 mL Midline or Central Line = 20 mL/lumen, Pre-op (day of surgery) sodium chloride flush 0.9 % injection 5-40 mL 5-40 mL, IntraVENous, PRN, Starting on Sonia 11/06/23 at 1307, Until Discontinued, Line Care, After every IV line use, For Line Patency: Peripheral IV = 5 mL; Midline or Central Line = 10 mL/lumen. If following IV push medication, administer flush at same rate as the IV push. Flush volume is determined by type of infusion therapy being given. For non-viscous solutions use: Peripheral IV = 5 mL Midline or Central Line = 10 mL/lumen For viscous solutions (i.e. blood components, parenteral nutrition, contrast media, or after obtaining blood sample) use: Peripheral IV = 10 mL Midline or Central Line = 20 mL/lumen, PACU only No Frequency Medication Order 11/04/2023 11/05/2023 11/06/2023 ceFAZolin (ANCEF) 2 g injection 1 dose, Starting on Sonia 11/06/23 at 1114, Until Sonia 11/06/23 at 2314, Jenna Yang: cabinet override, Jenna Yang: cabinet override 1115 (Due) Linked Groups Order Group 1: labetalol (NORMODYNE;TRANDATE) injection 10 mgJump to med 10 mg, IntraVENous, EVERY 15 MIN PRN, 2 doses, Starting on Sonia 11/06/23 at 1307, Until Discontinued, High Blood Pressure, for SBP greater than 180 mmHg for 2 consecutive measurements taken from different sites.
If heart rate is 60 bpm or less hold labetalol and use hydralazine if ordered, otherwise contact provider. Inform provider if SBP is still greater than 180 mmHg, 10 minutes after second antihypertensive dose is administered.
PACU only Or hydrALAZINE (APRESOLINE) injection 10 mgJump to med 10 mg, IntraVENous, EVERY 15 MIN PRN, 2 doses, Starting on Sonia 11/06/23 at 1307, Until Discontinued, High Blood Pressure, for SBP greater than 180 mmHg for 2 consecutive measurements taken from different sites
If heart rate is greater than 60 bpm, hold hydralazine and use labetalol if ordered, otherwise contact provider. Inform provider if SBP is still greater than 180 mmHg 10 minutes after second antihypertensive dose is administered.
PACU only FOR RECORDS PERTAINING TO PATIENTS WHO ARE OR HAVE BEEN ENROLLED IN A CHEMICAL DEPENDENCY/SUBSTANCEABUSE PROGRAM, SOME INFORMATION MAY BE OMITTED. This clinical summary was aggregated from multiple sources. Caution should be exercised in using it in the provision of clinical care. This summary normalizes information from multiple sources, and as a consequence, information in this document may materially change the coding, format and clinical context of patient data. In addition, data may be omitted in some cases. CLINICAL DECISIONS SHOULD BE BASED ON THE PRIMARY CLINICAL RECORDS. [employer] provides no warranty or guarantee of the accuracy or completeness of information in this document.
[2024-10-23 10:35] LABS: Basophils Percent Auto 0.7 % (0.2-2.0); Eosinophils Absolute Auto 0.3 10^3/uL (0.0-0.7); Eosinophils Percent Auto 5.5 % (0.9-7.0); Hematocrit 44.1 % (36.0-48.0); Hemoglobin 14.8 g/dL (12.0-16.0); Immature Granulocytes Abs Auto 0.01 10^3/uL (0.00-0.03); Immature Granulocytes Pct Auto 0.2 % (0.0-0.5); Lymphocytes Absolute Auto 2.1 10^3/uL (1.2-3.8); Lymphocytes Percent Auto 34.4 % (20.5-60.0); Mean Corpuscular HGB Conc 33.6 g/dL (29.9-35.2); Mean Corpuscular Hemoglobin 31.9 pg (26.7-34.0); Mean Platelet Volume 9.3 fL (9.5-13.5); Monocytes Absolute Auto 0.6 10^3/uL (0.3-0.8); Monocytes Percent Auto 9.7 % (1.7-12.0); Neutrophils Percent Auto 49.5 % (43.0-75.0); Platelet Count 202 10^3/uL (150-450); Red Blood Count 4.64 10^6/uL (4.20-5.40); Red Cell Distribution Width 12.8 % (11.0-15.0)
[2024-10-23 10:46] LABS: Estimated Average Glucose 137 mg/dL; Glycohemoglobin A1C 6.4 % (4.5-6.2)
[2024-10-23 11:17] LABS: Alanine Aminotransferase 29 U/L (14-59); Albumin Globulin Ratio 1.1; Alkaline Phosphatase 59 U/L (46-116); Anion Gap 11.5; Aspartate Amino Transferase 22 U/L (15-37); BUN Creatinine Ratio 18.3; Bilirubin Total 0.4 mg/dL (0.2-1.0); Calcium 9.4 mg/dL (8.5-10.1); Chloride 104 mmol/L (98-107); Chol HDL Ratio 7.2; Cholesterol 338 mg/dL (<=200); Estimated GFR (African America >60 (>=60 mL/min/1.73m^2); Estimated GFR (Non-African Ame 53 (>=60 mL/min/1.73m^2); Free T3 2.45 pg/mL (2.18-3.98); Globulin 3.7 g/dL; Glucose 129 mg/dL (74-106); HDL Cholesterol 47 mg/dL (40-60); Potassium 4.5 mmol/L (3.5-5.1); Sodium 143 mmol/L (136-145); Thyroid Stimulating Hormone 2.255 uIU/mL (0.358-3.740); Total Protein 7.7 g/dL (6.4-8.2); Triglycerides 467 mg/dL (<=150); VLDL CHOLESTEROL 93.4 mg/dL
[2024-10-23 11:43] LABS: LDL Cholesterol Direct 178 mg/dL
== END 2024-10-23 10:21 | disposition home or self-care (01) ==
LOC: LAB 10:20
PROVIDERS: PCP Family Medicine; Visit Provider Family Medicine
DX: E78.00 Pure hypercholesterolemia, unspecified (principal); E11.9 Type 2 diabetes mellitus without complications; I10 Essential (primary) hypertension; E66.9 Obesity, unspecified; E55.9 Vitamin D deficiency, unspecified
CPT/HCPCS: 36415; 80053; 80061; 82306; 83036; 83540; 83721; 84436; 84443; 84481; 85025

== ENCOUNTER 2024-11-24 07:35 | Outpatient (RCR) | payer MEDICARE, OTHER, SELFPAY ==
[2024-11-24 13:16] VITALS: BP 151/78; PULSE 83; TEMP 36.7; O2SAT 93
[2024-11-24] MEDS: DENOSUMAB 60 MG/ML SYRINGE SQ (13:26)
== END 2024-11-25 13:11 | disposition home or self-care (01) ==
LOC: INF 07:35
PROVIDERS: PCP Family Medicine; Visit Provider Orthopaedic Surgery
DX: M81.0 Age-related osteoporosis without current pathological fracture (principal)
CPT/HCPCS: 96372; J0897

== ENCOUNTER 2025-05-04 10:38 | Outpatient (OUT) | payer MEDICARE, OTHER, SELFPAY ==
--- OUTSIDE RECORDS SUMMARY | 2025-05-04 10:40 | XMS_ITS | Encounter Summary ---
Author Organization [facility] Address [address] [facility] [place] [address] Care Team Providers Care Motors And Generators Inspector Name Role Phone Levon Leahy MD Primary Care Provider [phone] Encounter Details Date Type Department Care Team (Late Contact Info) Description 09/05/2023 Abstract [facility] [address] [place] [phone] Juanjose Burgos MD [address] [place] [phone] Social History Tobacco Use Types Packs/Day Years Used Date Smoking Tobacco: Never Smokeless Tobacco: Never Alcohol Use Standard Drinks/Week Comments Never 0 (1 standard drink = 0.6 oz pure alcohol) caffeine: 1-2 cups per day coffee, tea Comments Unknown Sex and Gender Information Value Date Recorded Sex Assigned at Female 07/31/2023 3:18 PM EDT Legal Sex Female 7:07 PM EDT Gender Identity Female 07/31/2023 3:18 PM EDT Sexual Orientation Not on file documented as of this encounter Plan of Treatment Upcoming Encounters Date Type Department Care Team (Late Contact Info) Description 06/01/2025 3:20 PM EDT [facility] [address] [facility] [address] [address] [place] [phone] Juanjose Burgos MD [address], [place] [id number] documented as of this encounter Visit Diagnoses Not on filedocumented in this encounter Care Teams Motors And Generators Inspector Relationship Specialty Start Date End Date Levon Leahy MD PCP - General 02/23/25 documented as of this encounter
--- OUTSIDE RECORDS SUMMARY | 2025-05-04 10:40 | XMS_ITS | Encounter Summary ---
Author Organization [facility] Address [address] [place] [address] Care Team Providers Care Lang Path Therapist Name Role Phone Levon Leahy MD Primary Care Provider [phone] Encounter Details Date Type Department Care Team (Late st Contact Info) Description 04/09/2023 Abstract [facility] [address], [place] [phone] Juanjose Burgos MD [address] [address] Social History Tobacco Use Types Packs/Day Years Used Date Smoking Tobacco: Never Tobacco Cessation:Counseling Given: Not Answered Alcohol Use Standard Drinks/Week Comments Never 0 (1 standard drink = 0.6 oz pure alcohol) caffeine: 1-2 cups per day coffee, tea Comments Unknown Sex and Gender Information Value Date Recorded Sex Assigned at Female 07/31/2023 3:18 PM EDT Legal Sex Female 7:07 PM EDT Gender Identity Female 07/31/2023 3:18 PM EDT Sexual Orientation Not on file COVID-19 Exposure Response Date Recorded In the last 10 days, have yo u been in contact with someone who was confirmed or suspected to have Coronavirus/COVID-19? No / Unsure 04/10/2023 12:03 PM EDT documented as of this encounter Plan of Treatment Upcoming Encounters Date Type Department Care Team (Late st Contact Info) Description 06/01/2025 3:20 PM EDT Office Visit [facility] [address] [place] [address] Juanjose Burgos MD [address] [address] documented as of this encounter Visit Diagnoses Not on filedocumented in this encounter Care Teams Lang Path Therapist Relationship Specialty Start Date End Date Levon Leahy MD PCP - General 02/23/25 documented as of this encounter
--- OUTSIDE RECORDS SUMMARY | 2025-05-04 10:40 | XMS_ITS | Clinical Summary ---
Author Organization [facility] Address [address] [place] [address] Care Team Providers Care Managing Partner Name Role Phone Levon Leahy MD Primary Care Provider [phone] Allergies Active Allergy Reactions Criticality Noted Date Comments Acetaminophen Medium 08/05/2023 Other Reaction(s): Other (See Comments) Gastric ulcders Celecoxib Medium 01/03/2021 Other Reaction(s): Other (See Comments), Unknown ulcers Codeine Nausea And Vomiting Medium 10/09/2014 Other Reaction(s): Unknown Diclofenac-Misoprostol Medium 08/05/2023 Other Reaction(s): Other (See Comments) Gastric ulcers Egg-Derived Products Swelling Medium 01/11/2021 Other Reaction(s): Unknown Flu shot Swelling and redness at site Glutaral Medium 01/03/2021 Other Reaction(s): Other (See Comments), Unknown Ulcers Nsaids Medium 08/04/2020 Other Reaction(s): Other (See Comments), Unknown Other Medium 08/04/2020 Other Reaction(s): GI Disturbance Other Reaction(s): Unknown Oxaprozin Hives Medium 01/03/2021 GI ulcers Sulfa Antibiotics Hives,Rash Medium 06/17/2022 blisters Wound Dressing Adhesive 03/27/2017 Medications tiZANidine (Zanaflex) 4 MG tablet Take 4 mg by mouth 1 (one) time each day. 2 Active omega-3 (Fish Oil) 1000 MG capsule 1 capsule 1 (one) time each day at the same time. Active Respiratory Therapy Supplies (CareTouch CPAP & BIPAP Hose) miscIndications :Obstructive sleep apnea syndrome BIPAP mask, heating tubing and supplies for 1 year. 1 each 3 Active zinc gluconate 50 MG tablet 1 (one) time each day at the same time. Active alpha tocopherol (Vitamin E) 1000 units capsule 1 (one) time each day at the same time. Active pioglitazone (Actos) 15 MG tablet 1 (one) time each day at the same time. Active Multiple Vitamin (Multi Vitamin) tablet every 12 (twelve) hours. Active Milk Thistle 150 MG capsule as directed Orally Active melatonin 3 MG tablet 3 tas Orally at bedtime Active ascorbic acid (Vitamin C) 1000 MG tablet Take 1,000 mg by mouth in the morning. Active aspirin 81 MG EC tablet 1 (one) time each day at the same time. Active b complex vitamins capsule Take 1 capsule by mouth in the morning. Active Biotin 1000 MCG chewable tablet every 12 (twelve) hours. Active beta carotene (Vitamin A) 33886 units capsule Take 25,000 Units by mouth. Active calcium carbonate (Os-Asa) 1250 (500 Ca) MG tablet every 12 (twelve) hours. Active calcium-vitamin D-vitamin K (Calcium + D + K) 750-500-40 MG-UNT-MCG tablet every 12 (twelve) hours. Active glipiZIDE (Glucotrol) 5 MG tablet Take 5 mg by mouth in the morning. Active coenzyme Q-10 100 MG capsule 1 capsule 1 (one) time each day at the same time Active cholecalciferol (Vitamin D-3) 125 MCG (5000 UT) tablet Take 6,000 Units by mouth Active carvedilol (Coreg) 6.25 MG tablet Take 6.25 mg by mouth in the morning and 6.25 mg before bedtime. Active ALFALFA PO Take by mouth Activ e escitalopram (Lexapro) 10 MG tabletIndicatio ns:Depression, unspecified depression type TAKE 1 TABLET BY MOUTH EVERY DAY IN THE MORNING 90 tablet 3 4 Active Garlic 2 MG capsule Take by mouth Active LECITHIN PO Take by mouth Acti ve Red Yeast Rice Extract (RED YEAST RICE PO) Take by mouth A ctive Turmeric (CURCUMIN 95 PO) Take by mouth Active denosumab (Prolia) 60 MG/ML solution prefilled syringe Inject 60 mg under the skin 1 (one) time Active tiZANidine (Zanaflex) 2 MG tablet Take 2 mg by mouth every 8 (eight) hours if needed 4 Active mometasone (Nasonex) 50 MCG/ACT nasal sprayIndication s: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 Administer 2 sprays into each nostril Daily 18 g 11 4 Active traZODone (Desyrel) 100 MG tabletIndicatio ns:Chronic insomnia Take 3 tablets (300 mg) by mouth at bedtime 90 tablet 11 5 Active gabapentin (Neurontin) 800 MG tabletIndicatio ns:Focal epilepsy (HCC) Take 1 tablet (800 mg) by mouth in the morning and 1 tablet (800 mg) at noon and 1 tablet (800 mg) in the evening and 1 tablet (800 mg) before bedtime. 120 tablet 5 Active Dilantin 30 MG capsuleIndicati ons:Generalized seizure disorder (HCC) Take 1 capsule (30 mg) by mouth Daily Total of 10 capsules per week. 90 capsule 3 5 05/31/20 25 Active Dilantin 100 MG capsuleIndicati ons:Focal epilepsy (HCC) TAKE 3 CAPSULES BY MOUTH AT BEDTIME 270 capsule 3 5 Active clonazePAM (KlonoPIN) 0.5 MG tabletIndicatio ns:Seizure (HCC) Take 1 tablet (0.5 mg) by mouth in the morning and 1 tablet (0.5 mg) in the evening and 1 tablet (0.5 mg) before bedtime. 270 tablet 5 05/31/20 25 Active busPIRone (Buspar) 10 MG tabletIndicatio ns:Anxiety Take 1 tablet (10 mg) by mouth Daily 90 tablet 3 5 03/31/20 26 Active busPIRone (Buspar) 10 MG tabletIndicatio ns:Anxiety Take 1 tablet (10 mg) by mouth Daily 90 tablet 3 4 04/05/20 25 Discontin ued(Reord er) Active Problems Problem Noted Date Diagnosed Date Other nerve root and plexus disorders 09/23/2024 Trochanteric bursitis, right hip 09/23/2024 Arthritis of left knee 03/25/2024 Pure hyperglyceridemia 12/25/2023 Pure hypercholesterolemia, unspecified 4 Acute carpal tunnel syndrome of right wrist 10/11 Affective psychosis 07/31/2023 Allodynia 07/31/2023 Difficulty walking 07/31/2023 Generalized epilepsy 07/31/2023 Memory loss 07/31/2023 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 07/31/2023 Peripheral neuritis of right foot 07/31/2023 Myalgia 07/31/2023 PONV (postoperative nausea and vomiting) 023 Vitamin B12 deficiency (non anemic) 07/31/2023 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 [G56.23 (ICD-10-CM)] 07/21/2023 Brachial plexus neuropathy 04/13/2023 Cervical radiculopathy 04/13/2023 Complex partial seizure with impairment of consc iousness 04/13/2023 Dizziness 04/13/2023 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 04/13/2023 Localization-related (focal) (partial) symptomatic epilepsy and epileptic syndromes with simple partial seizures, intractable, without status epilepticus 04/13/2023 Stroke 04/13/2023 Cervical stenosis of spinal canal 10/28/2022 Insomnia 10/28/2022 Atelectasis 09/04/2022 Acute respiratory failure with hypoxia S/P cervical spinal fusion 09/02/2022 Current chronic use of systemic steroids 022 Seizure disorder 09/02/2022 Severe obesity (BMI 35.0-39.9) with comorbidity 12/31/2021 Anxiety 11/19/2021 Focal epilepsy 11/19/2021 Obstructive sleep apnea syndrome 11/19/2021 Lichen sclerosus 11/19/2021 Obesity 11/19/2021 VAIN I (vaginal intraepithelial neoplasia grade I) 11/19/2021 Primary hypertension 01/24/2021 Type 2 diabetes mellitus, wi thout long-term current use of insulin 08/04/2019 Depressive disorder 02/11/2014 Generalized anxiety disorder 02/11/2014 Encounters Date Type Department Care Team Description 04/05/2025 Refill [facility] [address] [place] [address] Juanjose Burgos MD Anxiety (Primary Dx) 03/02/2025 3:20 PM EDT Office Visit [facility] [address] [place] [address] Juanjose Burgos MD Chronic insomnia; Focal epilepsy (HCC); Generalized seizure disorder (HCC); Seizure (HCC) 03/02/2025 Bamboo flowsheet [facility] [address] [place] [address] Juanjose Burgos MD 03/02/2025 Travel 02/23/2025 Travel from Last 3 Months Immunizations Immunization Administration Dates Next Due Pneumococcal Conjugate PCV 13 10/24/2021 Pneumococcal Polysaccharide PPSV23 04/24/2021, Family History Medical History Relation Name Comments Heart disease Father Father Heart disease Mother Mother suicide Nephew Cancer Sibling Relation Name Status Comments Brother 5 brothers Father Father Mother Mother Nephew Sibling 5 sisters Social History Tobacco Use Types Packs/Day Years Used Date Smoking Tobacco: Never Smokeless Tobacco: Never Tobacco Cessation:Counseling Given: Not Answered [...] PM EDT Sexual Orientation Not on file Last Filed Vital Signs Vital Sign Reading Time Taken Comments Blood Pressure 168/89 09/23/2024 3:07 PM EST Pulse 75 09/23/2024 3:07 PM EST Temperature - - Respiratory Rate - - Oxygen Saturation - - Inhaled Oxygen Concentration - - Weight 86.2 kg (190 lb) 09/23/2024 3:07 PM EST Height 152.4 cm (5') 06/15/2024 1:39 PM EDT Body Mass Index 37.11 06/15/2024 1:39 PM EDT Plan of Treatment Upcoming Encounters Date Type Department Care Team (Late st Contact Info) Description 06/01/2025 3:20 PM EDT Office Visit [facility] [address] [place] [phone] Juanjose Burgos MD [address] [facility] [address] [id number] Insurance [employer] [place] Care Teams Managing Partner Relationship Specialty Start Date End Date Levon Leahy MD PCP - General 02/23/25
--- OUTSIDE RECORDS SUMMARY | 2025-05-04 10:40 | XMS_ITS | Encounter Summary ---
Author Organization [facility] Address [address] [place] [address] Care Team Providers Care Brand Strategist Name Role Phone Levon Leahy MD Primary Care Provider [phone] Reason for Visit * Reason Comments Med Refill Encounter Details Date Type Department Care Team (Late Contact Info) Description 08/12/2023 Refill [facility] [address] [facility] [address] [place] [address] Juanjose Burgos MD [address] [facility] [address] [place] [address] [phone] Focal epilepsy (HCC) Social History Tobacco Use Types Packs/Day Years [...] on file documented as of this encounter Miscellaneous Notes * Telephone Encounter - Brandi Bustamante - 08/12/2023 2:05 PM EDT Medication filled 1 week ago documented in this encounter Plan of Treatment Upcoming Encounters Date Type Department Care Team (Late Contact Info) Description 06/01/2025 3:20 PM EDT Office Visit [facility] [address] [facility] [address] [place] [address] Juanjose Burgos MD [address] [facility] [address] [place] [address] [phone] documented as of this encounter Visit Diagnoses Diagnosis Focal epilepsy (HCC) documented in this encounter Care Teams Brand Strategist Relationship Specialty Start Date End Date Levon Leahy MD PCP - General 02/23/25 documented as of this encounter
--- NOTE | 2025-05-04 10:52 | MM_ITS ---
Patient Name: DACIA BENJAMIN MR#: [id number] : 1960 Exam Date: 05/04/2025 Ordering Doctor: NON-STAFF PHYSICIAN RADIOLOGY REPORT PROCEDURE: MM TOMOSYNTHESIS SCREENING BI COMPARISON: MM TOMOSYNTHESIS SCREENING BI, 03/31/2024. MG MAMM SCREEN 3D PAU CAD, 03/11/2023. MG MAMM SCREEN PAU W CAD, 11/29/2014. INDICATIONS: Screening Calculator Name NCI Breast Cancer Risk Assessment Tool 5 Year Breast Cancer Risk 2.40% Lifetime Breast Cancer Risk 8.60% Personal Breast Cancer No Personal Ovarian Cancer No Treatments None Family Cancers Niece with breast cancer at age 50; Mother with ovarian cancer at age 93; Sister with uterine cancer at age 63. LOCATION: [facility] BREAST COMPOSITION: There are scattered areas of fibroglandular density. FINDINGS: DIAGNOSTIC CATEGORY 1--NEGATIVE. RIGHT BREAST: No significant suspicious finding. LEFT BREAST: No significant suspicious finding. RECOMMENDATIONS: ROUTINE MAMMOGRAM AND CLINICAL EVALUATION IN 12 MONTHS. PLEASE NOTE: A NORMAL MAMMOGRAM DOES NOT EXCLUDE THE POSSIBILITY OF BREAST CANCER. A CLINICALLY SUSPICIOUS PALPABLE LUMP SHOULD BE BIOPSIED. Dictated by: Denny Lorenzo DO on 05/04/2025 at 15:52 Approved by: Denny Lorenzo DO on 05/04/2025 at 15:53
--- OUTSIDE RECORDS SUMMARY | 2025-05-04 10:58 | XMS_ITS | CCD ---
Author Organization [facility] Care Team Providers Care Mule Spinner Name Role Phone Davie Hernandes Primary Care Provider Unavailabl e ENDY CRUZ Referring Unavailable DAVIE HERNANDES Primary Care Unavailable Davie Hernandes Primary Care Provider Niki Pearson Primary Care Physician MD Marito Villalobos Attending Provider MD Marito Villalobos Attending Provider Davie Hernandes Primary Care Provider Niki Pearson MD Primary Care Provider [phone] Niki Pearson MD Primary Care Provider [phone] ROCÍO REYES V Consulting Unavailable MISC, DR CARTER Attending Unavailable MISC, DR CARTER Admitting Unavailable HOY ., DR PRINCE Primary Care Unavailable MISC, DR CARTER Consulting Unavailable LILI [...] LILI Preciado, DR PRINCE Primary Care Unavailable DR ROCÍO REYES V Consulting Unavailable AUDREY, PITA Attending Unavailable VENTURA, PITA Admitting Unavailable VENTURA, PITA Consulting Unavailable NIIY ., DR PRINCE Primary Care Unavailable HOY [...] Unavailable HOY ., DR PRINCE Attending Unavailable REINECK, DR CHAVEZ Ellsworth Attending Unavailabl e REINECK, DR CHAVEZ Ellsworth Admitting Unavailabl e HOY ., DR PRINCE Primary Care Unavailable ALICIA, DR CHAVEZ [place] Consulting Unavailabl ROCÍO Martinez Unavailable LILI ., DR PRINCE Primary Care Unavailable MARITO VILLALOBOS Attending Unavailable MARITO VILLALOBOS Admitting Unavailable MARITO VILLALOBOS Consulting Unavailable REZA HAYWARD Consulting Unavailable LUZ HEREDIA Unavailable Niki Pearson MD Primary Care Provider [phone] Unavailable Primary Care Provider Unavailabl ENDY Pearson Attending Unavailable NIKI PEARSON Primary Care Unavailable ENDY CRUZ Admitting Unavailable LUZ GARG Attending Unavailable NIKI PEARSON Primary Care Unavailable ENDY CRUZ Referring Unavailable NIKI PEARSON Primary Care Unavailable ENDY CRUZ Attending Unavailable NIKI PEARSON Primary Care Unavailable ENDY CRUZ Admitting Unavailable Niki Pearson MD Primary Care Provider [phone] FLORIN BURGOS Attending Unavailable FLORIN BURGOS Attending Unavailable FLORIN BURGOS Attending Unavailable LA ZURITA Attending Unavailable FLORIN BURGOS Attending Unavailable FLORIN BURGOS Attending Unavailable ROSALBA GREGORIO Attending Unavailable ROSALBA GREGORIO Attending Unavailable ROSALBA GREGORIO Attending Unavailable ROSALBA GREGORIO Attending Unavailable ROKICKI, ROSALBA A. Attending Unavailable ROVICCKRoseline, ROSALBA A. Attending Unavailable ROKICKI, ROSALBA A. Attending Unavailable ROKICKI, ROSALBA A. Attending Unavailable ROKICKI, ROSALBA A. Attending Unavailable ROKICKI, ROSALBA A. Attending Unavailable ROKICKI, ROSALBA A. Attending Unavailable ROKICKI, ROSALBA A. Attending Unavailable ROKICKI, ROSALBA A. Attending Unavailable ROKICKI, ROSALBA A. Attending Unavailable ROKICKI, ROSALBA A. Attending Unavailable Allergies Allergy Classification Reported Allergen(s) Allergy Type Date of Onset Reaction(s) Facility (7 sources) Adhesive Tape Propensity to adverse reactions to drug 03-27-20 17 Other (See Comments) [facility] Phone: (7 sources) celecoxib Drug Allergy 01-03-20 21 Other (See Comments) [facility] Phone: (20 sources) Codeine; Translations: [codeine] Drug Allergy 10-09-20 14 Nausea And Vomiting, Nausea and vomiting (disorder) [facility] Phone: (7 sources) egg white (chicken) allergenic extract Drug Allergy 01-12-20 21 Swelling [facility] Phone: (7 sources) Glutaral Drug Allergy 01-03-20 21 Other (See Comments) [facility] Phone: (6 sources) NSAIDs; Translations: [NSAIDs] Propensity to adverse reactions to drug 08-04-20 20 Other (See Comments), Gastric ulcer (disorder) [facility] Phone: (20 sources) oxaprozin Drug Allergy 01-03-20 21 Other (See Comments), Hives [facility] Phone: (1 source) Adhesive bandage Drug allergy Eruption of skin (disorder) [facility] [place] (19 sources) Sulfonamides (Antibiotic) Propensity to adverse reactions to drug 06-17-20 22 Other (See Comments), Hives, Rash [facility] (2 sources) Non-steroidal anti-inflammatory agent Propensity to adverse reactions to drug 08-04-20 20 Other (See Comments) [facility] Work Phone: (1 source) Adhesive agent Drug allergy (disorder) 01-06-20 19 [facility] (1 source) celecoxib Drug Allergy 01-03-20 21 [facility] (1 source) Codeine Drug Allergy 10-09-20 14 [facility] (1 source) egg extract Drug Allergy [facility] (1 source) Glutaral Drug Allergy 01-03-20 21 [facility] (1 source) NSAIDs Drug allergy (disorder) 10-09-20 14 [facility] (1 source) oxaprozin Drug Allergy 01-03-20 21 [facility] (1 source) Acetaminophen Drug Allergy 08-05-20 23 Other (See Comments) [facility] (15 sources) Diclofenac / miSOPROStol Drug Allergy 08-05-20 23 Other (See Comments) [facility] (14 sources) Acetaminophen Drug Allergy 08-05-20 23 [facility] (14 sources) celecoxib Drug Allergy 01-03-20 21 [facility] (14 sources) Glutaral Drug Allergy 01-03-20 21 [facility] (14 sources) Non-steroidal anti-inflammatory agent Drug Intolerance 08-04-20 20 [facility] (3 sources) Eggs Or Egg-Derived Products Drug Allergy 01-12-20 21 Swelling [facility] (14 sources) Other Propensity to adverse reactions 08-04-20 20 [facility] (14 sources) Wound Dressing Adhesive Drug Intolerance 03-27-20 17 [facility] (11 sources) Egg-Derived Products Drug Allergy 01-12-20 21 Swelling [facility] (1 source) ALLERGIES NOT ON FILE; Translations: [ALLERGIES NOT ON FILE] Propensity to adverse reactions (disorder) [facility] Medications Current Medications Medication Drug [...] Active Start: 09-02-2022 [facility] as needed Mg/kg dosing [...] (DUONEB) nebulizer solution 1 ampule ALFALFA PO (14 sources) ALFALFA PO Take by mouth Active ALFALFA PO Take by mouth 0 Active aspirin 81 mg delayed release oral tablet (19 sources) Platelet Aggregation Inhibitor, Nonsteroidal Anti-inflammatory Drug aspirin 81 MG EC tablet 1 (one) time each day at the same time. Active b complex vitamins capsule (14 sources) take 1 capsule by mouth in the morning b complex vitamins capsule Take 1 capsule by mouth in the morning. Active take 1 capsule by mouth in the m orning b complex vitamins capsule Take 1 capsule by mouth in the morning. 0 Active beta carotene 12651 unt oral capsule (20 sources) beta carotene (V itamin A) 78758 units capsule Take 25,000 Units by mouth. Active take 1 capsule by mouth once [place] beta carotene 92086 units capsule Take 25,000 Units by mouth daily 0 Suspended biotin 1 mg chewable tablet (20 sources) Biotin 1000 MCG chewable tablet every 12 (twelve) hours. Active take 2 tablets by mo [facility] once daily Biotin 00389 MCG TABS Take 20,000 mcg by mouth daily 0 Suspended End: 08-28-2022 take 2 tablets by mouth once daily Biotin 1000 MCG CHEW biotin 1,000 mcg chewable tablet Take 2 tablets every day by oral route. 0 08/28/2022 Discontinued (Therapy completed) busPIRone hydrochloride 10 mg oral tablet (18 sources) Start: 03-25-2024 End: 05-11-2025 take 1 tablet by mouth once daily [...] + D + K) 750-500-40 MG-UNT-MCG tablet (14 sources) calcium-vitamin D-vitamin K (Calcium + D [...] Fri10/30/22 at 0900 take 2 tablets by [facility] once daily as needed cetirizine (ZYRTEC) 5 MG tablet Take 10 mg by mouth daily as needed 0 Suspended cetirizine (ZYRT EC) 5 MG tablet Take 5 mg by mouth 0 Active 1 ml denosumab 60 mg/ml prefilled syringe (11 sources) RANK Ligand Inhibitor inject 60 mg by subcutaneous injection once denosumab (Prolia) 60 MG/ML solution prefilled syringe Inject 60 mg under the skin 1 (one) time Active 1 ml diphenhydrAMINE hydrochloride 50 mg/ml cartridge (1 source) Histamine-1 Receptor Antagonist Start: 2020 End: 2020 diphenhydrAMINE (BENADRYL) injection 12.5 mg docosahexaenoic acid 120 mg / eicosapentaenoic acid 180 mg oral capsule (19 sources) omega-3 (Fish Oi l) 1000 MG capsule 1 capsule 1 (one) time each day at the same time. Active take 1 capsule by mouth twice da ofelia Sumerco-3 Fatty Acids (FISH OIL) 1000 MG CAPS [...] 06/24/2022 Active escitalopram 10 mg oral tablet (20 sources) Serotonin Reuptake Inhibitor Start: 05-29-2024 take [...] Active garlic preparation 2 mg oral capsule (17 sources) Non-Standardized Food Allergenic Extract Garlic 2 [...] (4 tablet ), Oral, PRN, Starting on 09/02/22 at 2009, Until Discontinued, Low blood sugar [...] 11-06-2023 labetalol (NORMODYNE;TRANDATE) injection 10 mg Lecithin (11 sources) LECITHIN PO Take by mouth Active 1 ml meperidine hydrochloride 50 mg/ml injection (1 source) Opioid Agonist Start: 02-12-2021 meperidine (DEMEROL) injection 12.5 mg 2 ml metoclopramide 5 mg/ml prefilled syringe (1 source) Dopamine-2 Receptor Antagonist Start: 02-12-2021 End: 02-12-2021 metoclopramide (REGLAN) injection 10 mg milk thistle extract 150 mg oral capsule (20 sources) Milk Thistle 150 MG capsule as [...] furoate 0.05 mg/actuat metered dose nasal spray (20 sources) Corticosteroid Start: 09-23-2024 End: 10-23-2024 take 2 spray(s) nasal route once daily mometasone (Nasonex) 50 MCG/ACT nasal spray Indications: 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 Administer 2 sprays into each nostril Daily 18 g 11 09/23/2024 Active Start: 09-08-2023 End: 09-23-2024 take 2 spray(s) nasal route once daily in the morning mometasone (Nasonex) 50 MCG/ACT nasal spray Indications: 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 INSTILL 2 SPRAYS INTO EACH NOSTRIL EVERY MORNING 18 g 11 09/08/2023 09/23/2024 Discontinued (Reorder) Mometasone Furoa te (NASONEX NA) by Nasal route daily 0 Suspended take 2 spray(s) nasa l route once daily mometasone (NASONEX) 50 MCG/ACT nasal spray mometasone 50 mcg/actuation nasal spray 2 sprays each nostril daily 0 Suspended morphine (PF) injection 2 mg (1 source) Start: 10-28-2022 morphine (PF) injection 2 mg Multiple Vitamin (Multi Vilma min) tablet (14 sources) Multiple Vitamin (Multi Vitamin) tablet every 12 (twelve) hours. Active Multiple Vitamin (Multi Vitamin) tablet every 12 (twelve) hours. 0 Active Nasonex 50 mcg/inh [place] (1 source) Start: 03-25-2022 take 1 spray(s) nasal route twice daily as needed Nasonex 50 mcg/inh [place] = 1 spray(s), Nasal, BID, PRN for allergy symptoms, in each nostril, # 17 gram, Refills(s) 0 Start Date: 03/25/22 Status: Ordered nitrofurantoin, macrocrystals 25 mg / nitrofurantoin, monohydrate 75 mg oral capsule (1 source) Nitrofuran Antibacterial Start: 06-17-2022 End: 06-22-2022 take 1 capsule by mouth in the morning nitrofurantoin, macrocrystal-monohyd rate, (MACROBID) 100 MG capsule Take 1 capsule [...] Pain 10 tablet 0 06/17/2022 06/20/2022 Active polyethylene glycol 3350 84730 mg powder for oral solution (1 source) Osmotic Laxative Start: 10-28-2022 polyethylene glycol (GLYCOLAX) packet 17 g prochlorperazine 5 mg/ml injectable solution (1 source) Phenothiazine Start: 11-06-2023 End: 11-07-2023 prochlorperazine (COMPAZINE) injection 5 mg 1 ml promethazine hydrochloride 25 mg/ml injection (1 source) Phenothiazine Start: 02-12-2021 End: 02-12-2021 promethazine (PHENERGAN) injection 6.25 mg Red Yeast Rice Extract (RED YEAST RICE PO) (11 sources) Red Yeast Rice Extract (RED YEAST RICE PO) Take by mouth Active Respiratory Therapy Supplies (CareTouch CPAP & BIPAP Hose) [facility] (14 sources) Start: 05-27-2023 Respiratory Therapy Supplies (CareTouch CPAP & BIPAP Hose) [facility] Indications: Obstructive sleep apnea syndrome BIPAP mask, heating tubing and supplies for 1 year. 1 each 05/27/2023 Active Start: 05-27-2023 Respiratory Th erapy Supplies (CareTouch CPAP & BIPAP Hose) [facility] Indications: Obstructive sleep apnea syndrome BIPAP mask, [...] 20 mL/lumen tiZANidine 2 mg oral tablet (20 sources) Central alpha-2 Adrenergic Agonist Start: 06-17-2024 [...] Oral, EVERY 6 HOURS PRN, Starting on 09/02/22 at 1306, Until Discontinued, Muscle spasms Start: [...] completed) traZODone hydrochloride 100 mg oral tablet (20 sources) Serotonin Reuptake Inhibitor Start: 03-02-2025 End: 04-01-2025 take 3 tablets by mouth at bedtime traZODone (Desyrel) 100 MG tablet Indications: Chronic insomnia Take 3 tablets (300 mg) by mouth at bedtime 90 tablet 11 03/02/2025 04/01/2025 Active Start: 09-23-2024 End: 03-02-2025 take 2 tablets by mouth at bedtime traZODone (Desyrel) 100 MG tablet Indications: Chronic insomnia Take 2 tablets (200 mg) by mouth at bedtime 60 tablet 11 09/23/2024 03/02/2025 Discontinued (Reorder) Start: 09-23-2024 End: 09-23-2024 take 1 tablet by mouth at bedtime, then take 3 tablets by mouth at bedtime traZODone (Desyrel) 100 MG tablet Indications: Chronic insomnia Take 1 tablet (100 mg) by mouth at bedtime Take 3 Tablets (150mg( by mouth at bedtime 30 tablet 11 09/23/2024 09/23/2024 Discontinued Start: 03-25-2024 End: 09-23-2024 take 3 tablets by mouth at bedtime traZODone (Desyrel) 50 MG tablet Indications: Chronic insomnia Take 3 Tablets (150mg( by mouth at bedtime 270 tablet 3 03/25/2024 09/23/2024 Discontinued (Reorder) Start: 07-31-2023 take 3 tablets by mo [facility] at bedtime traZODone (Desyrel) 50 MG tablet [...] Start Date: 03/26/22 Status: Ordered Turmeric extract (17 sources) Turmeric (CURCUM IN 95 PO) Take by mouth Active End: 10-25-2022 take 1 capsule by mouth once daily turmeric 500 MG CAPS Take by mouth daily 0 10/25/2022 Discontinued (Therapy completed) take 1 capsule by mo uth once daily turmeric 500 MG CAPS Take by mouth daily 0 Active turmeric 500 MG CAPS Take by mouth 0 Active Turmeric (CURCUM IN 95) 500 MG CAPS Take by mouth 0 Suspended Turmeric (CURCUM IN 95) 500 MG CAPS Take by mouth 0 Active ubidecarenone 100 mg / vitam in e 5 unt oral capsule (14 sources) coenzyme Q-10 10 0 MG capsule 1 capsule 1 (one) time each day at the same time Active vitamin e 450 mg oral capsul e (20 sources) alpha tocopherol (Vitamin E) 1000 units capsule 1 (one) time each day at the same time. Active End: 08-28-2022 Vitamin E 100 UNIT/GM CREA v itamin E take 1 tablet per day 0 08/28/2022 Discontinued (Therapy completed) zinc gluconate 50 mg oral ta blet (14 sources) zinc gluconate 5 0 MG tablet [...] mg from all sources in 24 hours. [place] 500 MG TABS (7 sources) take 1 tablet by mouth once daily [place] 500 MG TABS Take by mouth daily 0 Suspended take 1 tablet by mouth once elbert y [place] 500 MG TABS Take by mouth daily 0 Active [place] 500 MG T ABS Take by mouth 0 Suspended [place] 500 MG T ABS Take by mouth 0 Active ascorbic acid 500 mg chewable tablet (20 sources) Vitamin C Start: 09-02-2022 take 1000 [...] Sonia 09/23/24 at 1645, For 1 dose calcium carbonate 1500 mg oral tablet (20 sources) Start: 10-28-2022 take 600 mg by mouth twice daily at mealtime 600 mg, Oral, 2 TIMES DAILY WITH MEALS, First dose on Fri10/28/22 at 1200, Until Discontinued calcium carbonat e (Os-Maritza) 1250 (500 Ca) MG tablet every 12 (twelve) hours. Active carvedilol 6.25 mg oral tablet (19 sources) alpha-Adrenergic Elmo, beta-Adrenergic [place]mo Start: 09-03-2022 [...] mins. Post-op cholecalciferol 0.025 mg oral tablet (20 sources) Vitamin D Start: 10-29-2022 take 6000 [IU] by mouth once daily Labeling may look different. 25 fpg=3258 Units. Please double check dosages. 6,000 Units, Oral, DAILY, First dose on Fri10/29/22 at 0900, Until Discontinued cholecalciferol (Vitamin D-3) 125 MCG (5000 UT) tablet Take 6,000 Units by mouth Active take 1 tablet by dhaval th once daily Cholecalciferol (VITAMIN D3) 125 MCG [...] each 1 06/17/2022 10/25/2022 Discontinued (Therapy completed) clonazePAM 0.5 mg oral tablet (20 sources) Benzodiazepine Start: 06-22-2024 End: 05-31-2025 take 1 tablet by mouth in the morning, then take 1 tablet by mouth in the evening, then take 1 tablet by mouth at bedtime clonazePAM (KlonoPIN) 0.5 MG tablet Indications: Seizure (CMS/HCC) Take 1 tablet (0.5 mg) by mouth in the morning and 1 tablet (0.5 mg) in the evening and 1 tablet (0.5 mg) before bedtime. 270 tablet 12/06/2024 03/02/2025 Discontinued (Reorder) Start: 09-25-2023 End: 03-24-2024 take 1 tablet [...] tablet clonazepam 0.5 mg tablet 0 Suspended ubidecarenone 100 mg oral capsule (6 sources) take 1 capsule by mo uth once daily Coenzyme Q10 (CO Q 10) [...] inj ection 4 mg Start: 09-02-2022 End: 09-03-2022 2 mg, IntraVENous, EVERY 8 H OURS, First dose on Fri09/02/22 at 1700, For 3 doses fluticasone propionate 0.05 mg/actuat metered dose nasal spray (1 source) Corticosteroid Start: 10-28-2022 take 1 spray(s) nasal route once daily 1 spray, Each Nostril, DAILY, First dose on Fri10/28/22 at 1200, Until Discontinued Substituted for Mometasone (NASONEX). gabapentin 800 mg oral tablet (20 sources) Anti-epileptic Agent Start: 03-25-2024 End: 04-01-2025 gabapentin (Neurontin) 800 MG tablet Indications: Focal epilepsy (CMS/HCC) Take 1 tablet (800 mg) by mouth in the morning and 1 tablet (800 mg) at noon and 1 tablet (800 mg) in the evening and 1 tablet (800 mg) before bedtime. 120 tablet 3 09/23/2024 03/02/2025 Discontinued (Reorder) Start: 10-21-2023 End: 01-19-2024 take [...] at Discharge) glipiZIDE 5 mg oral tablet (19 sources) Sulfonylurea Start: 10-28-2022 take 5 mg [...] (Therapy completed) melatonin 3 mg oral tablet (20 sources) Start: 10-28-2022 take 9 mg by [...] Antifungal Start: 06-17-2022 End: 08-28-2022 nystatin (MYCOSTATIN) 918538 UNIT/GM ointment Apply topically 2 times daily. [...] (ROXICODONE) immed iate release tablet 5 mg phenytoin sodium 100 mg extended release oral capsule (20 sources) Anti-epileptic Agent Start: 12-22-2023 End: 03-02-2025 take 3 capsules by mouth at bedtime Dilantin 100 MG capsule Indications: Focal epilepsy (CMS/HCC) TAKE 3 CAPSULES BY MOUTH AT BEDTIME 270 capsule 3 07/05/2024 03/02/2025 Discontinued (Reorder) Start: 12-22-2023 End: 05-31-2025 Dilantin 30 MG capsule Indic ations: Seizure disorder (CMS/HCC) Take 1 capsule (30 mg) by mouth Daily Total of 10 capsules per week. 90 capsule 3 07/05/2024 03/02/2025 Discontinued (Reorder) Start: 10-29-2022 take 60 mg by mouth [...] capsules three times a week , , SAT AT NIGHT 0 Suspended take 1 capsule by mo uth four times weekly phenytoin (DILANTIN) 30 MG ER capsule Take 30 mg by mouth four times a week SUN, MON, WED, FRI AT NIGHT 0 Suspended phenytoin (NIGHAT TIN) 100 MG ER capsule Dilantin Extended 100 mg capsule 0 Suspended pioglitazone 15 mg oral tablet (19 sources) Peroxisome Proliferator Receptor alpha Agonist, Peroxisome [...] tablet (6 sources) take 1 tablet by mouth once daily Red Yeast Rice 600 MG TABS Take by mouth daily 0 Suspended soybean lecithin 1200 mg oral capsule (6 sources) take 1 capsule by mouth once daily lecithin 1200 MG CAPS capsule Take by mouth daily 0 Suspended vitamin b12 1 mg/ml injectable solution (7 sources) Vitamin B12 Start: 07-05-2024 End: 07-05-2024 cyanocobalamin (Vitamin B-12) injection 1,000 mcg Start: 07-05-2024 End: 07-05-2024 cyanocobalamin (Vitamin B-12 ) injection 1,000 mcg Start: 07-05-2024 End: 07-05-2024 inject 1000 ug by intramuscular injection once 1,000 mcg, Intramuscular, Once, On Fri07/05/24 at 1615, For 1 dose Start: 07-05-2024 End: 07-05-2024 inject 1000 ug by intramuscular injection once 1,000 mcg, Intramuscular, Once, On Fri07/05/24 at 1615, For 1 dose Start: 03-25-2024 End: 07-05-2024 cyanocobalamin (Vitamin B-12 ) injection 1,000 mcg Problems Active Problems Problem Classification Problem Date Documented Da te Episodic/Chronic Acute cerebrovascular disease (18 sources) Cerebral infarction, unspecified; Translations: [Cerebrovascular accident] Onset: 11-08-2022 Chronic Anxiety disorders (20 sources) Anxiety; Translations: [Anxiety disorder, unspecified] Onset: 02-11-2014 03-27-2022 Chronic Diabetes mellitus without complication (20 sources) Diabetes mellitus; Translations: [Type 2 diabetes mellitus] Onset: 08-04-2019 03-27-2022 Chronic Disorders of lipid metabolism (20 sources) Hyperlipidemia; Translations: [Hyperlipidemia, unspecified] Onset: 11-12-2022 03-27-2022 Chronic Epilepsy; convulsions (20 sources) Temporal lobe epilepsy; 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] Onset: 11-19-2021 03-27-2022 Chronic Epilepsy; convulsions (5 sources) Seizure; Translations: [Unspecified convulsions] 12-25-2023 Episodic Essential hypertension (20 sources) Hypertensive disorder; Translations: [Essential hypertension] Onset: 01-24-2021 03-27-2022 Chronic Miscellaneous mental health disorders (4 sources) Eating disorder; Translations: [Chronic insomnia] 03-27-2022 Chronic Mood disorders (20 sources) Depressive disorder; Translations: [Depressive disorder] Onset: [...] PAU CAROTID ART] Onset: 05-03-2022 Chronic Osteoarthritis (11 sources) Arthritis of left knee; Translations: [Unilateral primary osteoarthritis, left knee] Onset: 03-25-2024 03-25-2024 Chronic Other and unspecified benign neoplasm (1 source) Parathyroid adenoma 03-27-2022 Episodic Other bone disease and musculoskeletal deformities (4 sources) Other specified disorders of bone density and structure, other site; Translations: [OTH D/O BONE DEN STRUCT OTH SITE] Onset: 03-07-2023 Episodic Other nervous system disorders (1 source) Difficulty in walking, not elsewhere classified; Translations: [DIFFICULTY IN WALKING NEC] Onset: 05-24-2022 Chronic Other nervous system disorders (11 sources) Carpal tunnel syndrome; Translations: [Carpal tunnel syndrome, right upper limb] Onset: 11-06-2023 11-06-2023 Chronic Other nervous system disorders (14 sources) Brachial plexus disorder; Translations: [Brachial plexus disorders] Onset: 04-13-2023 04-13-2023 Chronic Other nervous system disorders (3 sources) Ulnar neuropathy; Translations: [Lesion of ulnar nerve, bilateral upper limbs] Onset: 07-21-2023 07-21-2023 Chronic Other nervous system disorders (14 sources) Difficulty walking; Translations: [Difficulty in walking, not elsewhere classified] Onset: 07-31-2023 07-31-2023 Chronic Other nervous system disorders (14 sources) Mortons neuroma of right foot; Translations: [Lesion of plantar nerve, right lower limb] Onset: 07-31-2023 07-31-2023 Chronic Other nervous system disorders (14 sources) Right foot neuritis; Translations: [Unspecified mononeuropathy of right lower limb] Onset: 07-31-2023 07-31-2023 Chronic Other nervous system disorders (11 sources) Bilateral ulnar nerve disorder; Translations: [Lesion of ulnar nerve, bilateral upper limbs] Onset: 07-21-2023 07-21-2023 Chronic Other nervous system disorders (8 sources) Carpal tunnel syndrome of right wrist; Translations: [Carpal tunnel syndrome, right upper limb] Onset: 11-06-2023 12-25-2023 Chronic Other nervous system disorders (8 sources) Disorder of nerve root and/or plexus; [...] Chronic Other nutritional; endocrine; and metabolic disorders (14 sources) Obesity; Translations: [Obesity, unspecified] Onset: 11-19-2021 07-31-2023 Chronic Other nutritional; endocrine; and metabolic disorders (14 sources) Severe obesity; Translations: [Morbid (severe) obesity due to excess calories] Onset: 12-31-2021 07-31-2023 Chronic Other screening for suspected conditions (not mental disorders or infectious disease) (4 sources) Encounter for screening mammogram for malignant neoplasm of breast; Translations: [ENC SCR MAMMO MALIG NEOPLASM BREAST] Onset: 03-11-2023 Episodic Other skin disorders (14 sources) Lichen sclerosus et atrophicus; Translations: [Circumscribed scleroderma] Onset: 11-19-2021 07-31-2023 Chronic Other upper respiratory disease (1 source) 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; Translations: [Allergic rhinitis due to animal (cat) (dog) hair and dander] 09-23-2024 Chronic Residual codes; unclassified (20 sources) Obstructive sleep apnea syndrome; Translations: [Obstructive sleep apnea (adult) (pediatric)] Onset: 11-19-2021 03-27-2022 Chronic Residual codes; unclassified (14 sources) Idiopathic sleep related non-obstructive alveolar hypoventilation; [...] Episodic/Chronic Conditions associated with dizziness or vertigo (20 sources) Dizziness and giddiness; Translations: [Other peripheral vertigo, unspecified ear] Onset: 05-23-2022 Episodic Diabetes mellitus without complication (1 source) Hyperglycemia, unspecified; Translations: [HYPERGLYCEMIA UNSPECIFIED] Onset: 04-16-2022 Episodic Malaise and fatigue (1 source) Other fatigue; Translations: [OTHER FATIGUE] Onset: 11-12-2022 Episodic Nausea and vomiting (14 sources) Postoperative nausea and vomiting; Translations: [Nausea with vomiting, unspecified] Onset: 07-31-2023 07-31-2023 Episodic Nutritional deficiencies (14 sources) Vitamin B12 deficiency (non anemic); Translations: [Deficiency of other specified B group vitamins] Onset: 07-31-2023 07-31-2023 Episodic Other aftercare (18 sources) Long-term current use of systemic steroid; Translations: [terminal carman (current) use of systemic steroids] Onset: 09-02-2022 Episodic Other aftercare (1 source) Other bed bug exterminator (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; Translations: [OTH LONG-TERM CURRENT DRUG THERAPY] Onset: 05-15-2022 Episodic Other connective tissue disease (19 sources) History of cervical spine fusion; Translations: [Arthrodesis status] Onset: 09-02-2022 Episodic Other connective tissue disease (1 source) Myalgia, unspecified site; Translations: [MYALGIA UNSPECIFIED SITE] Onset: 05-24-2022 Episodic Other connective tissue disease (4 sources) Pain in right foot; Translations: [PAIN IN RIGHT FOOT] Onset: 03-20-2022 Episodic Other connective tissue disease (14 sources) Muscle pain; Translations: [Myalgia, unspecified site] Onset: 07-31-2023 07-31-2023 Episodic Other connective tissue disease (8 sources) Trochanteric bursitis of right hip; Translations: [Trochanteric bursitis, right hip] Onset: 09-23-2024 09-23-2024 Episodic Other female genital disorders (14 sources) Vaginal intraepithelial neoplasia grade 1; 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] Onset: 11-19-2021 07-31-2023 Episodic Other lower respiratory disease (1 source) Personal history of pneumonia (recurrent); Translations: [PERSONAL HX OF PNEUMONIA RECURRENT] Onset: 04-16-2022 Episodic Other nervous system disorders (1 source) Other abnormalities of gait and mobility; Translations: [OTHER ABNORMALITIES GAIT AND MOBILITY] Onset: 04-16-2022 Episodic Other nervous system disorders (16 sources) Allodynia; Translations: [Other disturbances of skin [...] Onset: 03-28-2022 Episodic Pleurisy; pneumothorax; pulmonary collapse (18 sources) Atelectasis; Translations: [Atelectasis] Onset: 09-04-2022 Episodic Residual codes; unclassified (18 sources) Insomnia; Translations: [Insomnia, unspecified] Onset: 10-28-2022 03-26-2022 Episodic Residual codes; unclassified (1 source) Acquired absence of other specified parts of digestive tract; Translations: [ACQ ABSENCE OTH PART DIGESTV TRACT] Onset: 05-15-2022 Episodic Residual codes; unclassified (14 sources) Amnesia; Translations: [Other amnesia] Onset: 07-31-2023 07-31-2023 Episodic Respiratory failure; insufficiency; arrest (adult) (18 sources) Acute respiratory failure; Translations: [Acute respiratory failure with hypoxia] Onset: 09-03-2022 Episodic Spondylosis; intervertebral disc disorders; other back problems (20 sources) Spinal stenosis in cervical region; Translations: [Spinal stenosis, cervical region] Onset: 05-24-2022 Episodic Results Test Name Value Interpretation Reference Range Facility [facility] 04-08-2025 [facility] [id number] Kristin Null Ann 1960 F Date Provider Department Center 04/08/2025 ROSALBA CURIEL [facility] [place] [facility] No family history on file Normal [facility] 03-11-2025 [facility] [id number] Kristin Null Ann 1960 F Date Provider Department Center 03/11/2025 ROSALBA CURIEL [facility] [place] [facility] No family history on file Normal [facility] 02-25-2025 [facility] [id number] Kristin Null Ann 1960 F Date Provider Department Center 02/25/2025 ROSALBA CURIEL [facility] [place] [facility] No family history on file Normal [facility] 02-11-2025 [facility] [id number] Kristin Null Ann 1960 F Date Provider Department Center 02/11/2025 ROSALBA CURIEL [facility] [place] [facility] No family history on file Normal [facility] 01-21-2025 [facility] [id number] StujaredKristin goyalOlga 1960 F Date Provider Department Center 01/21/2025 ROSALBA CURIEL [facility] [place] [facility] No family history on file Normal [facility] 12-09-2024 [facility] [id number] DashaKristin goyalOlga 1960 F Date Provider Department Center 12/09/2024 ROSALBA CURIEL [facility] [place] [facility] No family history on file Normal [facility] 11-19-2024 [facility] [id number] StujaredKristin goyalOlga 1960 F Date Provider Department Center 11/19/2024 ORSALBA CURIEL [facility] [place] [facility] No family history on file Normal [facility] 10-22-2024 [facility] [id number] ChakaOlga 1960 F Date Provider Department Center 10/22/2024 ROSALBA CURIEL [facility] [place] [facility] No family history on file Normal [facility] 09-17-2024 [facility] [id number] ChakaOlga 1960 F Date Provider Department Center 09/17/2024 ROSALBA CURIEL [facility] [place] [facility] No family history on file Normal [facility] 08-20-2024 [facility] [id number] ChakaOlga 1960 F Date Provider Department Center 08/20/2024 ROSALBA CURIEL [facility] [place] [facility] No family history on file Normal [facility] 07-30-2024 [facility] [id number] ChakaOlga 1960 F Date Provider Department Center 07/30/2024 ROSALBA CURIEL [facility] [place] [facility] No family history on file Normal [facility] 06-25-2024 [facility] [id number] Kristin Null 1960 F Date Provider Department Center 06/25/2024 ROSALBA CURIEL [facility] [place] [facility] No family history on file Normal [facility] 05-28-2024 [facility] [id number] Kristin Null 1960 Provider Department Center 05/28/2024 ROSALBA CURIEL [facility] [place] [facility] No family history on file Normal [facility] 05-03-2024 [facility] [id number] Kristin Null 1960 Date Provider Department [place] 05/03/2024 ROSALBA CURIEL [facility] [place] [facility] No family history on file Normal [facility] mercer 04-15-2024 [facility] [id number] Kristin Null 1960 Provider Department [place] 04/15/2024 [facility]ALBA CURI[facility] No family history on file Normal [facility] OPERATIVE REPORTon OPERATIVE REPORT [address] [id number] OPERATIVE REPORT PATIENT NAME: KRISTIN NULL : 1960 MED REC NO: [id number] ROOM: [facility] NO: [id number] ADMIT DATE: 11/06/2023 PROVIDER: Endy Cruz MD [...] room in satisfactory condition. ENDY CRUZ MD [id number] Doc#: [id number] CC: Endy Cruz MD [facility] POC Glucose Fingerstickon Glucose [Mass/Vol] 134 mg/dL High 65 - 105 mg/dL [facility] Comment on above: TESTING PERFORMED AT [facility] [address] [place] [address] Interpretation and review of laboratory results Abnormal [facility] OPERATIVE REPORTon 3 OPERATIVE REPORT [address] [address] OPERATIVE REPORT PATIENT NAME: KRISTIN NULL : 1960 [facility] REC NO: [id number] ROOM: ACCOUNT NO: [id number] ADMIT DATE: 08/18/2023 PROVIDER: Endy Cruz MD DATE OF PROCEDURE: 08/18/2023 SURGEON: Endy Cruz MD FOOD SAFETY DIRECTOR: Hayder Burch MD ANESTHESIA: General inhalation. PREOPERATIVE [...] satisfactory condition. ENDY CRUZ MD [id number] Doc#: [id number] CC: Endy Cruz MD Normal [facility] BUN + Creatinineon 3 Creatinine [Mass/Vol] 0.7 mg/dL Normal 0.5-0.9 [facility] Comment on above: Performed By: #### B UNCRT, GLU, CBC, LYTE #### [employer] [facility] [address] [place] [address] Prior Authorization Technician: Kenyon Hewitt MD GFR/1.73 sq M.predicted among non-blacks MDRD (S/P/Bld) [Vol rate/Area] mL/min/{1.73_m2} Normal >60 [facility] Comment on above: Result Comment: These [...] #### B UNCRT, GLU, CBC, LYTE #### [employer] [address] [place] [address] Prior Authorization Technician: Kenyon Hewitt MD Urea nitrogen [Mass/Vol] 19 mg/dL Normal 8-23 [facility] Comment on above: Performed By: #### B UNCRT, GLU, CBC, LYTE #### [facility] [employer] [address] [place] [address] Prior Authorization Technician: Kenyon Hewitt MD CBCon 08-05-2023 Erythrocyte distribution width (RBC) [Ratio] 12.8 % Normal 11.8-14.4 [facility] Comment on above: Performed By: #### B UNCRT, GLU, CBC, LYTE #### [facility] [employer] [address] [place] [address] Prior Authorization Technician: Kenyon Hewitt MD Hematocrit (Bld) [Volume fraction] 45.0 % Normal 36.3-47.1 [facility] Comment on above: Performed By: #### B UNCRT, GLU, CBC, LYTE #### [facility] [employer] [address] [place] [address] Prior Authorization Technician: Kenyon Hewitt MD Hemoglobin (Bld) [Mass/Vol] 15.2 g/dL High 11.9-15.1 [facility] Comment on above: Performed By: #### B UNCRT, GLU, CBC, LYTE #### [facility] [employer] [address] [place] [address] Prior Authorization Technician: Kenyon Hewitt MD MCH (RBC) [Entitic mass] 32.3 pg Normal 25.2-33.5 [facility] Comment on above: Performed By: #### B UNCRT, GLU, CBC, LYTE #### [facility] [employer] [address] [place] [address] Prior Authorization Technician: Kenyon Hewitt MD MCHC (RBC) [Mass/Vol] 33.8 g/dL Normal 28.4-34.8 [facility] Comment on above: Performed By: #### B UNCRT, GLU, CBC, LYTE #### [facility] [employer] [address] [place] [phone] Prior Authorization Technician: Kenyon Hewitt MD MCV (RBC) [Entitic vol] 95.7 fL Normal 82.6-102.9 [facility] Comment on above: Performed By: #### B UNCRT, GLU, CBC, LYTE #### [address] [address] Prior Authorization Technician: Kenyon Hewitt MD NRBC Automated 0.0 per 100 WBC Normal 0.0 [facility] Comment on above: Performed By: #### B UNCRT, GLU, CBC, LYTE #### [address] [address] Prior Authorization Technician: Kenyon Hewitt MD Platelet mean volume (Bld) [Entitic vol] 10.0 fL Normal 8.1-13.5 [facility] Comment on above: Performed By: #### B UNCRT, GLU, CBC, LYTE #### [address] [address] Prior Authorization Technician: Kenyon Hewitt MD Platelets (Bld) [#/Vol] 201 10*3/uL Normal 138-453 [facility] Comment on above: Performed By: #### B UNCRT, GLU, CBC, LYTE #### [address] [address] Prior Authorization Technician: Kenyon Hewitt MD RBC (Bld) [#/Vol] 4.70 10*6/uL Normal 3.95-5.11 [facility] Comment on above: Performed By: #### B UNCRT, GLU, CBC, LYTE #### [address] [address] Prior Authorization Technician: Kenyon Hewitt MD WBC (Bld) [#/Vol] 7.1 10*3/uL Normal 3.5-11.3 [facility] Comment on above: Performed By: #### B UNCRT, GLU, CBC, LYTE #### [address] [address] Prior Authorization Technician: Kenyon Hewitt MD Electrolyteson 08-05-2023 Anion gap [Moles/Vol] 10 mmol/L Normal 9-17 [facility] Comment on above: Performed By: #### B UNCRT, GLU, CBC, LYTE #### [employer] [address] [place] [address] Prior Authorization Technician: Kenyon Hewitt MD Chloride [Moles/Vol] 98 mmol/L Normal 98-107 [facility] Comment on above: Performed By: #### B UNCRT, GLU, CBC, LYTE #### [employer] [address] [place] [address] Prior Authorization Technician: Kenyon Hewitt MD CO2 [Moles/Vol] 28 mmol/L Normal 20-31 [facility] Comment on above: Performed By: #### B UNCRT, GLU, CBC, LYTE #### [facility] [address] [place] [address] Prior Authorization Technician: Kenyon Hewitt MD Potassium [Moles/Vol] 4.4 mmol/L Normal 3.7-5.3 [facility] Comment on above: Result Comment: SPEC IMEN SLIGHTLY HEMOLYZED, RESULTS MAY BE ADVERSELY AFFECTED. Performed By: #### B UNCRT, GLU, CBC, LYTE #### [employer] [address] [place] [address] Prior Authorization Technician: Kenyon Hewitt MD Sodium [Moles/Vol] 136 mmol/L Normal 135-144 [facility] Comment on above: Performed By: #### B UNCRT, GLU, CBC, LYTE #### [employer] [address] [place] [address] Prior Authorization Technician: Kenyon Hewitt MD Glucoseon 08-05-2023 Glucose [Mass/Vol] 84 mg/dL Normal 70-99 [facility] Comment on above: Performed By: #### B UNCRT, GLU, CBC, LYTE #### [facility] [employer] [address] [place] [address] Prior Authorization Technician: Kenyon Hewitt MD MG MAMM SCREEN 3D PAU CADon 03-11-2023 MG MAMM SCREEN 3D PAU CAD Patient: KRISTIN NULL Exam Date: 03/11/2023 : 1960 Gender:F Ordering : PITA VENTURA Admission #: [id number] Family : Order #: [id number] CLICK HERE TO VIEW EXAM RADIOLOGY REPORT [...] uterine cancer at age 61. LOCATION: [facility] BREAST COMPOSITION: Scattered areas fibroglandular density. [...] MD on 03/12/2023 at 09:08 Normal [facility] XR DEXA BONE DENSITYon 03-08 XR [...] ROCÍO REYES Date: 2023-03-08 08:59 Normal [facility] INSULINon 11-09-2022 Insulin 23.0 uIU/mL Normal 2.6-24.9 [facility] Comment on above: Performed By: #### V ITAD #### [facility] [address] [place] [address] Dr. Sveta Velasquez CBC AUTO DIFFon 11-08-2022 BASO # 0.0 103/ul Normal 0.0-0.1 [facility] Comment on above: Performed By: #### V ITAD #### [facility] [address] [place] [address] Dr. Sveta Velasquez Basophils/100 WBC (Bld) 0.5 % Normal 0.2-2.0 [facility] Comment on above: Performed By: #### V ITAD #### [facility] [address] [place] [address] Dr. Sveta Velasquez EO # 0.2 103/ul Normal 0.0-0.7 [facility] Comment on above: Performed By: #### V ITAD #### [facility] [address] [place] [address] Dr. Sveta Velasquez Eosinophils/100 WBC (Bld) 2.6 % Normal 0.9-7.0 [facility] Comment on above: Performed By: #### V ITAD #### [facility] [address] [place] [address] Dr. Sveta Velasquez Erythrocyte distribution width (RBC) [Ratio] 12.7 % Normal 11.0-15.0 [facility] Comment on above: Performed By: #### V ITAD #### [facility] [address] [place] [address] Dr. Sveta Velasquez Hematocrit (Bld) [Volume fraction] 40.5 % Normal 36.0-48.0 [facility] Comment on above: Performed By: #### V ITAD #### [facility] [address] [place] [address] Dr. Sveta Velasquez Hemoglobin (Bld) [Mass/Vol] 13.7 g/dL Normal 12.0-16.0 [facility] Comment on above: Performed By: #### V ITAD #### [facility] [address] [place] [address] Dr. Sveta Velasquez IG # 0.01 10e3/ul Normal 0.00-0.03 [facility] Comment on above: Performed By: #### V ITAD #### [facility] [address] [place] [address] Dr. Sveta Velasquez IG % 0.2 % Normal 0.0-0.5 [facility] Comment on above: Performed By: #### V ITAD #### [facility] [address] [place] [address] Dr. Sveta Velasquez LYMPH # 2.0 103/ul Normal 1.2-3.8 [facility] Comment on above: Performed By: #### V ITAD #### [facility] [address] [place] [address] Dr. Sveta Velasquez Lymphocytes/100 WBC (Bld) 32.4 % Normal 20.5-60.0 [facility] Comment on above: Performed By: #### V ITAD #### [facility] [address] [place] [address] Dr. Sveta Velasquez MANUAL DIFF REQ NO Normal [facility] Comment on above: Performed By: #### V ITAD #### [facility] [address] [place] [address] Dr. Sveta Velasquez MCH (RBC) [Entitic mass] 31.1 pg Normal 26.7-34.0 [facility] Comment on above: Performed By: #### V ITAD #### [facility] [address] [place] [address] Dr. Sveta Velasquez MCHC (RBC) [Mass/Vol] 33.8 g/dL Normal 29.9-35.2 [facility] Comment on above: Performed By: #### V ITAD #### [facility] [address] [place] [address] Dr. Sveta Velasquez MCV (RBC) [Entitic vol] 91.8 fL Normal 81.0-99.0 [facility] Comment on above: Performed By: #### V ITAD #### [facility] [address] [place] [address] Dr. Sveta Velasquez MONO # 0.5 103/ul Normal 0.3-0.8 [facility] Comment on above: Performed By: #### V ITAD #### [facility] [address] [place] [address] Dr. Sveta Velasquez Monocytes/100 WBC (Bld) 8.8 % Normal 1.7-12.0 [facility] Comment on above: Performed By: #### V ITAD #### [facility] [address] [place] [address] Dr. Sveta Velasquez NEUT # 3.4 103/ul Normal 1.4-6.5 [facility] Comment on above: Performed By: #### V ITAD #### [facility] [address] [place] [address] Dr. Sveta Velasquez Neutrophils/100 WBC (Bld) 55.5 % Normal 43.0-75.0 [facility] Comment on above: Performed By: #### V ITAD #### [facility] [address] [place] [address] Dr. Sveta Velasquez Platelet mean volume (Bld) [Entitic vol] 9.6 fL Normal 9.5-13.5 [facility] Comment on above: Performed By: #### V ITAD #### [facility] [address] [place] [address] Dr. Sveta Velasquez PLT 280 103/ul Normal 150-450 [facility] Comment on above: Performed By: #### V ITAD #### [facility] [address] [place] [address] Dr. Sveta Velasquez RBC 4.41 106/ul Normal 4.20-5.40 [facility] Comment on above: Performed By: #### V ITAD #### [facility] [address] [place] [address] Dr. Sveta Velasquez WBC 6.1 103/ul Normal 4.0-11.0 [facility] Comment on above: Performed By: #### V ITAD #### [facility] [address] [place] [address] Dr. Sveta Velasquez DILANTINon 11-08-2022 Phenytoin [Mass/Vol] 8.4 ug/mL Critically low 10.0-20.0 [facility] Comment on above: Performed By: #### P HY #### [facility] [address] [place] [address] Dr. Sveta Velasquez FREE T3on 11-08-2022 FREE T3 2.33 pg/mlL Normal 2.18-3.98 [facility] Comment on above: Performed By: #### V ITAD #### [facility] [address] [place] [address] Dr. Sveta Velasquez GLYCOHEMOGLOBIN A1Con 2021 ADA RECOMMENDATION SEE BELOW Normal [facility] Comment on above: Result Comment: ADA RECOMMENDED LIMIT 4.0 - 6.0 ADA THERAPEUTIC TARGET < 7.0 ACTION SUGGESTED > 7.0 Performed By: #### M ISC #### [facility] [address] [place] [address] Dr. Sveta Velasquez Glucose [Mass/Vol] 123 mg/dL Normal [facility] Comment on above: Performed By: #### M ISC #### [facility] [address] [place] [address] Dr. Sveta Velasquez HbA1c (Bld) [Mass fraction] 5.9 % Normal 4.5-6.2 [facility] Comment on above: Performed By: #### M ISC #### [facility] [address] [place] [address] Dr. Sveta Velasquez LIPID PROFILEon 11-08-2022 CHOL-HDL RATIO NORM SEE BELOW Normal [facility] Comment on above: Result Comment: 3.3 - 4.4 LOW RISK 4.4 - 7.1 AVERAGE RISK 7.1 - 11.0 MODERATE RISK >11.0 HIGH RISK Performed By: #### V ITAD #### [facility] [address] [place] [address] Dr. Sveta Velasquez Cholesterol [Mass/Vol] 257 mg/dL Critically high <=200 [facility] Comment on above: Performed By: #### V ITAD #### [facility] [address] [address] [address] Sveta Velasquez Cholesterol in HDL [Mass/Vol] 45 mg/dL Normal 40-60 [facility] Comment on above: Performed By: #### V ITAD #### [facility] [address] [address] [address] Sveta Velasquez Cholesterol in LDL [Mass/Vol] 168.8 mg/dL Normal [facility] Comment on above: Performed By: #### V ITAD #### [facility] [address] [address] [address] Sveta Velasquez Cholesterol.total/Chol esterol in HDL [Mass ratio] 5.7 {ratio} Normal [facility] Comment on above: Performed By: #### V ITAD #### [facility] [address] [address] [address] Sveta Velasquez HDL NORMAL > or = 60 mg/dl - LOW CARDIOVASCULAR RISK <40 mg/dl - HIGH CARDIOVASCULAR RISK Normal [facility] Comment on above: Performed By: #### V ITAD #### [facility] [address] [address] [address] Sveta Velasquez LDL CALC NORMAL SEE BELOW Normal [facility] Comment on above: Result Comment: <100 mg/dl OPTIMAL 100 - 129 mg/dl NEAR OR ABOVE OPTIMAL 130 - 159 mg/dl BORDERLINE HIGH 160 - 189 mg/dl HIGH >190 mg/dl VERY HIGH Performed By: #### V ITAD #### [facility] [address] [address] [address] Sveta Velasquez Triglyceride [Mass/Vol] 216 mg/dL Critically high <=150 [facility] Comment on above: Performed By: #### V ITAD #### [facility] [address] [address] [address] Sveta Velasquez VLDL CALC 43.2 mg/dL Normal [facility] Comment on above: Performed By: #### V ITAD #### [facility] [address] [place] [address] Dr. Sveta Velasquez PROF 14(COMP METB)on 022 Albumin [Mass/Vol] 3.9 g/dL Normal 3.4-5.0 [facility] Comment on above: Performed By: #### V ITAD #### [facility] [address] [place] [address] Dr. Sveta Velasquez Albumin/Globulin [Mass ratio] 1.0 {ratio} Normal [facility] Comment on above: Performed By: #### V ITAD #### [facility] [address] [place] [address] Dr. Sveta Velasquez ALP [Catalytic activity/Vol] 97 U/L Normal 46-116 [facility] Comment on above: Performed By: #### V ITAD #### [facility] [address] [place] [address] Dr. Sveta Velasquez ALT [Catalytic activity/Vol] 33 U/L Normal 14-59 [facility] Comment on above: Performed By: #### V ITAD #### [facility] [address] [place] [address] Dr. Sveta Velasquez Anion gap [Moles/Vol] 9.0 mmol/L Normal [facility] Comment on above: Performed By: #### V ITAD #### [facility] [address] [place] [address] Dr. Sveta Velasquez AST [Catalytic activity/Vol] 25 U/L Normal 15-37 [facility] Comment on above: Performed By: #### V ITAD #### [facility] [address] [place] [address] Dr. Sveta Velasquez Bilirubin [Mass/Vol] 0.3 mg/dL Normal 0.2-1.0 [facility] Comment on above: Performed By: #### V ITAD #### [facility] [address] [place] [address] Dr. Sveta Velasquez Calcium [Mass/Vol] 9.6 mg/dL Normal 8.5-10.1 [facility] Comment on above: Performed By: #### V ITAD #### [facility] [address] [address] [address] Sveta Velasquez Chloride [Moles/Vol] 101 mmol/L Normal 98-107 [facility] Comment on above: Performed By: #### V ITAD #### [facility] [address] [place] [address] Dr. Sveta Velasquez CO2 [Moles/Vol] 34.4 mmol/L Critically high 21.0-32.0 [facility] Comment on above: Performed By: #### V ITAD #### [facility] [address] [place] [address] Dr. Sveta Velasquez Creatinine [Mass/Vol] 0.76 mg/dL Normal 0.55-1.02 [facility] Comment on above: Performed By: #### V ITAD #### [facility] [address] [place] [address] Dr. Sveta Velasquez EGFR-AF VIET[place]ESE >60 Normal >=60 [facility] Comment on above: Performed By: #### V ITAD #### [facility] [address] [place] [address] Dr. Sveta Velasquez EGFR-NON AF VIET[place]ESE >60 Normal >=60 [facility] Comment on above: Performed By: #### V ITAD #### [facility] [address] [place] [address] Dr. Sveta Velasquez Globulin (S) [Mass/Vol] 4.0 g/dL Normal [facility] Comment on above: Performed By: #### V ITAD #### [facility] [address] [address] [address] Sveta Velasquez Glucose [Mass/Vol] 136 mg/dL Critically high 74-106 T [facility] Comment on above: Performed By: #### V ITAD #### [facility] [address] [place] [address] Dr. Sveta Velasquez Potassium [Moles/Vol] 4.4 mmol/L Normal 3.5-5.1 [facility] Comment on above: Performed By: #### V ITAD #### [facility] [address] [place] [address] Dr. Sveta Velasquez Protein [Mass/Vol] 7.9 g/dL Normal 6.4-8.2 [facility] Comment on above: Performed By: #### V ITAD #### [facility] [address] [address] [address] Sveta Velasquez Sodium [Moles/Vol] 140 mmol/L Normal 136-145 [facility] Comment on above: Performed By: #### V ITAD #### [facility] [address] [address] [address] Sveta Velasquez Urea nitrogen [Mass/Vol] 19.0 mg/dL Critically high 7.0-18.0 [facility] Comment on above: Performed By: #### V ITAD #### [facility] [address] [place] [address] Dr. Sveta Velasquez Urea nitrogen/Creatinine [Mass ratio] 25.0 mg/mg Normal [facility] Comment on above: Performed By: #### V ITAD #### [facility] [address] [address] [address] Sveta Velasquez T4on 11-08-2022 T4 [Mass/Vol] 5.60 ug/dL Normal 4.80-13.90 [facility] Comment on above: Performed By: #### V ITAD #### [facility] [address] [place] [address] Dr. Sveta Velasquez TSHon 11-08-2022 TSH 2.059 uIU/mL Normal 0.358-3.740 [facility] Comment on above: Performed By: #### V ITAD #### [facility] [address] [place] [address] Dr. Sveta Velasquez VITAMIN D 25 OHon 11-08-2022 VIT D 25-OH 59.4 ng/mL Normal [facility] Comment on above: Performed By: #### V ITAD #### [facility] [address] [place] [address] Dr. Sveta Velasquez VIT D RANGES SEE BELOW Normal [facility] Comment on above: Result Comment: <20 ng/mL Vit D deficient 20 - <30 ng/mL Vit D insufficient 30 - 100 ng/mL Vit D sufficient >100 ng/mL Potential Toxicity Performed By: #### V ITAD #### [facility] [address] [address] [address] Sveta Velasquez Basic Metabolic Panel w/ Ref adry to MGon 10-29-2022 Anion gap [Moles/Vol] 10 mmol/L 9 - 17 mmol/L [facility] [employer] Calcium [Mass/Vol] 9.2 mg/dL 8.6 - 10. 4 mg/dL [facility] [employer] Chloride [Moles/Vol] 99 mmol/L 98 - 10 7 mmol/L [facility] [employer] CO2 [Moles/Vol] 29 mmol/L 20 - 31 mmol/L [facility] Creatinine [Mass/Vol] 0.67 mg/dL 0.50 - 0.90 mg/dL [facility] [employer] GFR/1.73 sq M.predicted MDRD (S/P/Bld) [Vol rate/Area] - PINF [facility] Technology [facility] Comment on above: Effective Aug 12, 2022 [...] 167 mg/dL High 70 - 99 mg/dL [facility]ITALMakana SolutionsSELECT MEDICAL [facility] Interpretation and review of laboratory results Abnormal [facility]ITAL[facility]akana SolutionsSELECT [facility]ICAL [facility] Potassium [Moles/Vol] 3.9 mmol/L 3.7 - 5.3 mmol/L [facility] Sodium [Moles/Vol] 138 mmol/L 135 - 144 mmol/L [facility]IT[facility]ai[facility] Biolog[facility] Urea nitrogen (BldV) [Mass/Vol] 13 mg/dL 8 - 23 mg/dL [facility] POC Glucose Fingerstickon Glucose [Mass/Vol] 96 mg/dL 65 - 105 mg/dL [facility] Glucose [Mass/Vol] 166 mg/dL High 65 - 105 mg/dL [facility] Interpretation and review of laboratory results Abnormal [facility] Creatinineon 10-28-2022 Creatinine [Mass/Vol] 0.59 mg/dL 0.50 - 0.90 mg/dL [facility] GFR/1.73 sq M.predicted MDRD (S/P/Bld) [Vol rate/Area] - PINF [facility] Comment on above: Effective Aug 12, 2022 [...] following therapy that affects renal tubular secretion. [facility] FLUORO FOR SURGICAL PROCEDUR ESon 10-28-2022 Radiology exam is complete. No Radiologist dictation. Please follow up with ordering provider. [facility] POC Glucose Fingerstickon Glucose [Mass/Vol] 136 mg/dL High 65 - 105 mg/dL [facility] Interpretation and review of laboratory results Abnormal [facility] Glucose [Mass/Vol] 158 mg/dL High 65 - 105 mg/dL [facility] Interpretation and review of laboratory results Abnormal [facility] Glucose [Mass/Vol] 154 mg/dL High 65 - 105 mg/dL [facility] Interpretation and review of laboratory results Abnormal [facility] Glucose [Mass/Vol] 122 mg/dL High 65 - 105 mg/dL [facility] Interpretation and review of laboratory results Abnormal [facility] CT CHEST PULMONARY EMBOLISM W CONTRASTon 09-04-2022 [...] definite aspiration. Pneumonia in the differential however. [facility] CONSOLID[facility] EXAMINATION: CTA OF THE CHEST 09/04/2022 [...] sternal fracture or acute vertebral body fracture. [facility] Rocío Philippe MD - 09/04/2022 [...] definite aspiration. Pneumonia in the differential however. [facility] [employer] Work Phone: Radiology Study observation (narrative) [facility] [employer] Work Phone: CT CHEST PULMONARY EMBOLISM W CONTRASTOrdered By: Rocío Philippe on 09-04-2022 [facility] [employer] Work Phone: POC Glucose Fingerstickon Glucose [Mass/Vol] 163 mg/dL High 65 - 105 mg/dL [facility] Interpretation and review of laboratory results Abnormal [facility] Glucose [Mass/Vol] 127 mg/dL High 65 - 105 mg/dL [facility] Interpretation and review of laboratory results Abnormal [facility] CBC with Auto Differentialon 09-03-2022 Absolute Eos # [facility] Absolute Immature Granulocyte 0.06 [facility] Absolute Lymph # 1.16 [facility] Absolute Wise # 0.82 [facility] Basophils Absolute [facility] Basophils/100 WBC (Bld) 0 % 0 - 2 % [facility] Eosinophils/100 WBC (Bld) 0 % Low 1 - 4 % [facility] Hematocrit (Bld) [Volume fraction] 43.0 % 36.3 - 47.1 % [facility] Hemoglobin (Bld) [Mass/Vol] 14.0 g/dL 11.9 - 15.1 g/dL [facility] Immature granulocytes/100 WBC (Bld) 1 % High 0 [facility] Interpretation and review of laboratory results Abnormal [facility] Lymphocytes/100 WBC (Bld) 11 % Low 24 - 43 % [facility] MCH (RBC) [Entitic mass] 31.2 pg 25.2 - 33.5 pg [facility] MCHC (RBC) [Mass/Vol] 32.6 g/dL 28.4 - 34.8 g/dL [facility] MCV (RBC) [Entitic vol] 95.8 fL 82.6 - 102.9 fL [facility] Monocytes/100 WBC (Bld) 8 % 3 - 12 % [facility] NRBC Automated 0.0 0.0 per 100 WBC [facility] Platelet distribution width (Bld) [Ratio] 13.1 % 11.8 - 14.4 % [facility] Platelet mean volume (Bld) [Entitic vol] 10.1 fL 8.1 - 13.5 fL [facility] Platelets (Bld) [#/Vol] 181 10*3/uL [facility] RBC (Bld) [#/Vol] 4.49 10*6/uL 3.95 - 5.1 1 m/uL [facility] Segmented neutrophils/100 WBC (Bld) 80 % High 36 - 65 % [facility] Segs Absolute 8.62 High [facility] WBC (Bld) [#/Vol] 10.7 10*3/uL [facility] Microscopic Urinalysison Epithelial Cells UA 0 TO 2 [facility] RBC, UA None [facility] Comment on above: Reference range defi braydon for non-centrifuged specimen. WBC, UA 2 TO 5 [facility] POC Glucose Fingerstickon Glucose [Mass/Vol] 163 mg/dL High 65 - 105 mg/dL [facility] Interpretation and review of laboratory results Abnormal [facility] Glucose [Mass/Vol] 189 mg/dL High 65 - 105 mg/dL [facility] Interpretation and review of laboratory results Abnormal [facility] Glucose [Mass/Vol] 122 mg/dL High 65 - 105 mg/dL [facility] Interpretation and review of laboratory results Abnormal [facility] Glucose [Mass/Vol] 140 mg/dL High 65 - 105 mg/dL [facility] Interpretation and review of laboratory results Abnormal [facility] SPECIMEN REJECTIONon 022 Ordered Test CDP [facility] Reason for Rejection Unable to perform testing: Specimen hemolyzed. [facility] Specimen source Nom (Unsp spec) .BLOOD [facility] Urinalysis with Reflex to Cu ltureon 09-03-2022 Bilirubin Urine Negative NEGATIVE [facility] Color, UA Yellow Yellow [facility] Glucose, Ur Negative NEGATIVE [facility] Interpretation and review of laboratory results Abnormal [facility] Ketones Ql (U) Negative NEGATIVE [facility] Leukocyte esterase Test strip Ql (U) TRACE Abnormal NEGATIVE [facility] Nitrite, Urine Negative NEGATIVE [facility] pH, UA 7.5 5.0 - 8.0 [facility] Protein, UA Negative NEGATIVE [facility] Specific [place]oa, UA 1.015 1.005 - 1.030 [facility] Turbidity UA Clear Clear [facility] Urine Hgb Negative NEGATIVE [facility] Urobilinogen, Urine Normal Normal [facility] XR CHEST PORTABLEon 09-03-20 22 Top normal [...] neck is noted. Pulmonary vascularity top normal. [facility] Kristin Lorenzo MD - 09/03/2022 EXAMINATION: [...] Top normal pulmonary vascularity without overt edema. [employer] Phone: Radiology Study observation (narrative) [employer] Phone: XR CHEST PORTABLEOrdered By: Kristin Lorenzo on 09-03-2022 [employer] Phone: POC Glucose Fingerstickon Glucose [Mass/Vol] 132 mg/dL High 65 - 105 mg/dL [employer] Interpretation and review of laboratory results Abnormal [employer] XR CERVICAL SPINE 1 VWon Radiology exam is complete. No Radiologist dictation. Please follow up with ordering provider. [facility] Radiology exam is complete. No Radiologist dictation. Please follow up with ordering provider. [facility] Radiology exam is complete. No Radiologist dictation. Please follow up with ordering provider. [facility] EKG 12 LeadOrdered By: Karina Lee on 08-29-2022 Atrial Rate 81 BPM [employer] Phone: P [place] 45 degrees [employer] Work Phone: P-R Interval 178 ms [employer] Work Phone: Q-T Interval 376 ms [employer] Work Phone: QRS Duration 72 ms [employer] Work Phone: QTc Calculation (Bazett) 436 ms [employer] Work Phone: R [place] 39 degrees [employer] Work Phone: T [place] 41 degrees [employer] Work Phone: Ventricular Rate 81 BPM [employer] Work Phone: [employer] Work Phone: EKG 12 Leadon 08-29-2022 Normal sinus rhythm Normal ECG When compared with ECG of 29-JAN-2021 14:31, No significant change was found [facility] STV Karina Dumas MD - 08/29/2022 Normal sinus rhythm Normal ECG When compared with ECG of 29-JAN-2021 14:31, No significant change was found [employer] Work Phone: BUN & Creatinineon 2 Creatinine [Mass/Vol] 0.61 mg/dL 0.50 - 0.90 mg/dL [employer] GFR/1.73 sq M.predicted MDRD (S/P/Bld) [Vol rate/Area] - PINF [employer] Comment on above: Effective Aug 12, 2022 [...] Interpretation and review of laboratory results Abnormal [employer] Urea nitrogen (BldV) [Mass/Vol] 24 mg/dL High 8 - 23 mg/dL [facility] CBCon 08-28-2022 Hematocrit (Bld) [Volume fraction] 43.3 % 36.3 - 47.1 % [facility] Hemoglobin (Bld) [Mass/Vol] 14.1 g/dL 11.9 - 15.1 g/dL [facility] MCH (RBC) [Entitic mass] 31.1 pg 25.2 - 33.5 pg [facility] MCHC (RBC) [Mass/Vol] 32.6 g/dL 28.4 - 34.8 g/dL [facility] MCV (RBC) [Entitic vol] 95.4 fL 82.6 - 102.9 fL [facility] NRBC Automated 0.0 0.0 per 100 WBC [facility] Platelet distribution width (Bld) [Ratio] 12.9 % 11.8 - 14.4 % [facility] Platelet mean volume (Bld) [Entitic vol] 10.0 fL 8.1 - 13.5 fL [facility] Platelets (Bld) [#/Vol] 182 10*3/uL [facility] RBC (Bld) [#/Vol] 4.54 10*6/uL 3.95 - 5.1 1 m/uL [facility] WBC (Bld) [#/Vol] 6.6 10*3/uL [facility] Electrolyte Panelon 08-28-20 22 Anion gap [Moles/Vol] 11 mmol/L 9 - 17 mmol/L [facility] Chloride [Moles/Vol] 105 mmol/L 98 - 10 7 mmol/L [facility] CO2 [Moles/Vol] 28 mmol/L 20 - 31 mmol/L [facility] Potassium [Moles/Vol] 4.8 mmol/L 3.7 - 5.3 mmol/L [facility] Sodium [Moles/Vol] 144 mmol/L 135 - 144 mmol/L [facility] Glucose, Randomon 08-28-2022 Glucose [Mass/Vol] 84 mg/dL 70 - 99 mg/dL [facility] No Panel Informationon 08-28 [facility] GLYCOHEMOGLOBIN A1Con 2021 ADA RECOMMENDATION SEE BELOW Normal [facility] Comment on above: Result Comment: ADA RECOMMENDED LIMIT 4.0 - 6.0 ADA THERAPEUTIC TARGET < 7.0 ACTION SUGGESTED > 7.0 Performed By: #### A 1C #### [facility] [address] [address] [address] Sveta Velasquez Glucose [Mass/Vol] 280 mg/dL Normal [facility] Comment on above: Performed By: #### A 1C #### [facility] [address] [address] [address] Sveta Velasquez HbA1c (Bld) [Mass fraction] 11.4 % Critically high 4.5-6.2 [facility] Comment on above: Performed By: #### A 1C #### [facility] [address] [address] [address] Sveta Velasquez Laboratory - Chemistry and C hemistry - challengeon 06-17-2022 Glucose [Mass/Vol] 306 mg/dL High 65 - 105 mg/dL [facility] Work Phone: Microscopic Urinalysison Casts UA 2 TO 5 HYALINE Reference range defined for non-centrifuged specimen. [facility] Epithelial Cells UA 2 TO 5 [facility] RBC, UA 10 TO 20 [facility] Comment on above: Reference range defi braydon for non-centrifuged specimen. WBC, UA 20 TO 50 [facility] No Panel Informationon 06-17 [facility] POC Glucose Fingerstickon Interpretation and review of laboratory results Abnormal [facility] POCT glucoseon 06-17-2022 Interpretation and review of laboratory results Normal [facility] [employer] Work Phone: QC OK? yes [facility] [employer] Work Phone: Urinalysis with Reflex to Cu ltureon 08-08-2022 Bilirubin Urine Negative NEGATIVE [facility] Color, UA Dark Yellow Abnormal Yellow [facility] Glucose, Ur 2+ Abnormal NEGATIVE [facility] Interpretation and review of laboratory results Abnormal [facility] Ketones Ql (U) Negative NEGATIVE [facility] Leukocyte esterase Test strip Ql (U) SMALL Abnormal NEGATIVE [facility] Nitrite, Urine Negative NEGATIVE [facility] pH, UA 6.5 5 - 8 [facility] Protein, UA Negative NEGATIVE [facility] Specific [place], UA 1.032 High 1.005 - 1.03 [facility]ZA N [facility] Turbidity UA Clear Clear [facility] Urine Hgb Negative NEGATIVE [facility] Urobilinogen, Urine Normal Normal [facility] Vaginitis DNA Probeon 2021 ALON SPECIES, DNA PROBE Positive Abnormal NEGATIVE [facility] Comment on above: for Alon sp. Method of testing is a DNA probe intended for detection and identification of Alon species, Gardnerella vaginalis, and Trichomonas vaginalis nucleic acid in vaginal fluid specimens from patients with symptoms of vaginitis/vaginosis. GARDNERELLA VAGINALIS, DNA PROBE Negative NEGATIVE [facility] Comment on above: for Gardnerella vagi nalis Interpretation and review of laboratory results Abnormal [facility] Source .VAGINAL SWAB [facility] Trichomonas Vaginalis DNA Negative NEGATIVE [facility] Comment on above: for Trichomonas Vagi nalis [facility] CREATININEon 05-23-2022 Creatinine [Mass/Vol] 0.65 mg/dL Normal 0.55-1.02 [facility] Comment on above: Performed By: #### V ITAD #### [facility] [address] [address] [address] Sveta Velasquez EGFR-AF VIET[place]ESE >60 Normal >=60 [facility] Comment on above: Performed By: #### V ITAD #### [facility] [address] [address] [address] Sveta Velasquez EGFR-NON AF VIETNAMESE >60 Normal >=60 [facility] Comment on above: Performed By: #### V ITAD #### [facility] [id number] Sveta Velasquez MRI BRAIN WO W [...] ROCÍO REYES Date: 2022-05-23 10:26 Normal [facility] MRI CSPINE WO CONon 05-23-20 22 [...] ROCÍO REYES Date: 2022-05-23 09:15 Normal [facility] CBC AUTO DIFFon 05-12-2022 BASO # 0.0 103/ul Normal 0.0-0.1 [facility] Comment on above: Performed By: #### M ISC #### [facility] [address] [place] [address] Dr. Sveta Velasquez Basophils/100 WBC (Bld) 0.4 % Normal 0.2-2.0 [facility] Comment on above: Performed By: #### M ISC #### [facility] [address] [place] [address] Dr. Sveta Velasquez EO # 0.1 103/ul Normal 0.0-0.7 [facility] Comment on above: Performed By: #### M ISC #### [facility] [address] [place] [address] Dr. Sveta Velasquez Eosinophils/100 WBC (Bld) 1.0 % Normal 0.9-7.0 [facility] Comment on above: Performed By: #### M ISC #### [facility] [address] [place] [address] Dr. Sveta Velasquez Erythrocyte distribution width (RBC) [Ratio] 12.8 % Normal 11.0-15.0 [facility] Comment on above: Performed By: #### M ISC #### [facility] [address] [place] [address] Dr. Sveta Velasquez Hematocrit (Bld) [Volume fraction] 43.6 % Normal 36.0-48.0 [facility] Comment on above: Performed By: #### M ISC #### [facility] [address] [place] [address] Dr. Sveta Velasquez Hemoglobin (Bld) [Mass/Vol] 15.9 g/dL Normal 12.0-16.0 [facility] Comment on above: Performed By: #### M ISC #### [facility] [address] [place] [address] Dr. Sveta Velasquez IG # 0.04 10e3/ul Critically high 0.00-0.03 [facility] Comment on above: Performed By: #### M ISC #### [facility] [address] [place] [address] Dr. Sveta Velasquez IG % 0.4 % Normal 0.0-0.5 [facility] Comment on above: Performed By: #### M ISC #### [facility] [address] [place] [address] Dr. Sveta Velasquez LYMPH # 2.5 103/ul Normal 1.2-3.8 [facility] Comment on above: Performed By: #### M ISC #### [facility] [address] [place] [address] Dr. Sveta Velasquez Lymphocytes/100 WBC (Bld) 26.6 % Normal 20.5-60.0 [facility] Comment on above: Performed By: #### M ISC #### [facility] [address] [place] [address] Dr. Sveta Velasquez MANUAL DIFF REQ NO Normal [facility] Comment on above: Performed By: #### M ISC #### [facility] [address] [place] [address] Dr. Sveta Velasquez MCH (RBC) [Entitic mass] 33.0 pg Normal 26.7-34.0 [facility] Comment on above: Performed By: #### M ISC #### [facility] [address] [place] [address] Dr. Sveta Velasquez MCHC (RBC) [Mass/Vol] 36.5 g/dL Critically high 29.9-35.2 [facility] Comment on above: Performed By: #### M ISC #### [facility] [address] [place] [address] Dr. Sveta Velasquez MCV (RBC) [Entitic vol] 90.5 fL Normal 81.0-99.0 [facility] Comment on above: Performed By: #### M ISC #### [facility] [address] [place] [address] Dr. Sveta Velasquez MONO # 0.5 103/ul Normal 0.3-0.8 [facility] Comment on above: Performed By: #### M ISC #### [facility] [address] [place] [address] Dr. Sveta Velasquez Monocytes/100 WBC (Bld) 5.1 % Normal 1.7-12.0 [facility] Comment on above: Performed By: #### M ISC #### [facility] [address] [place] [address] Dr. Sveta Velasquez NEUT # 6.2 103/ul Normal 1.4-6.5 [facility] Comment on above: Performed By: #### M ISC #### [facility] [address] [place] [address] Dr. Sveta Velasquez Neutrophils/100 WBC (Bld) 66.5 % Normal 43.0-75.0 [facility] Comment on above: Performed By: #### M ISC #### [facility] [address] [place] [address] Dr. Sveta Velasquez Platelet mean volume (Bld) [Entitic vol] 10.3 fL Normal 9.5-13.5 [facility] Comment on above: Performed By: #### M ISC #### [facility] [address] [place] [address] Dr. Sveta Velasquez PLT 214 103/ul Normal 150-450 [facility] Comment on above: Performed By: #### M ISC #### [facility] [address] [address] [address] Sveta Velasquez RBC 4.82 106/ul Normal 4.20-5.40 [facility] Comment on above: Performed By: #### M ISC #### [facility] [address] [address] [address] Sveta Velasquez WBC 9.4 103/ul Normal 4.0-11.0 [facility] Comment on above: Performed By: #### M ISC #### [facility] [address] [address] [address] Sveta Velasquez CRPon 05-12-2022 CRP [Mass/Vol] mg/L Normal <=1.0 [facility] Comment on above: Performed By: #### C RP #### [facility] [address] [place] [address] Dr. Sveta Velasquez XR CHEST 1 Von [...] ROCÍO SHELLEY Date: 2022-05-12 17:18 Normal [facility] CAROTID ART BILon 05-02-2 022 [place] CAROTID [...] Mild atherosclerotic disease. Electronically authenticated by: LA MANRIQUE Date: 2022-05-02 11:12 Normal [facility] MRI Foot w/o + w/ Righton [...] by Rashel Guerrero on 04/25/2022 1247 Normal [facility] Albumin [Mass/volume] in Ser um or PlasmaOrdered By: Marito Villalobos on 04-13-2022 Albumin [Mass/Vol] 4.4 g/dL 3.2-5.5 [facility] C-Reactive Proteinon 022 C-Reactive Protein 0.6 mg/dL Normal 0.0-1.0 [facility] Comment on above: Result Comment: PERF ORMED BY: [place] [address] PATHOLOGIST BUYER ASSISTANT JOSH MESSINA M.D. Performed By: #### C KMB, HS TROP, CK, CMP, CRP, PHENY #### [facility] [address] [place] [address] CBC AUTO DIFFon 04-13-2022 BASO # 0.1 103/ul Normal 0.0-0.1 [facility] Comment on above: Performed By: #### M ISC #### [facility] [address] [address] [address] Sveta Velasquez Basophils/100 WBC (Bld) 0.6 % Normal 0.2-2.0 [facility] Comment on above: Performed By: #### M ISC #### [facility] [address] [address] [address] Sveta Velasquez EO # 0.2 103/ul Normal 0.0-0.7 [facility] Comment on above: Performed By: #### M ISC #### [facility] [address] [place] [address] Dr. Sveta Velasquez Eosinophils/100 WBC (Bld) 1.9 % Normal 0.9-7.0 [facility] Comment on above: Performed By: #### M ISC #### [facility] [address] [place] [address] Dr. Sveta Velasquez Erythrocyte distribution width (RBC) [Ratio] 12.7 % Normal 11.0-15.0 [facility] Comment on above: Performed By: #### M ISC #### [facility] [address] [place] [address] Dr. Sveta Velasquez Hematocrit (Bld) [Volume fraction] 45.0 % Normal 36.0-48.0 [facility] Comment on above: Performed By: #### M ISC #### [facility] [address] [place] [address] Dr. Sveta Velasquez Hemoglobin (Bld) [Mass/Vol] 16.9 g/dL Critically high 12.0-16.0 [facility] Comment on above: Performed By: #### M ISC #### [facility] [address] [place] [address] Dr. Sveta Velasquez IG # 0.03 10e3/ul Normal 0.00-0.03 [facility] Comment on above: Performed By: #### M ISC #### [facility] [address] [place] [address] Dr. Sveta Velasquez IG % 0.3 % Normal 0.0-0.5 [facility] Comment on above: Performed By: #### M ISC #### [facility] [address] [place] [address] Dr. Sveta Velasquez LYMPH # 3.5 103/ul Normal 1.2-3.8 [facility] Comment on above: Performed By: #### M ISC #### [facility] [address] [place] [address] Dr. Sveta Velasquez Lymphocytes/100 WBC (Bld) 39.9 % Normal 20.5-60.0 [facility] Comment on above: Performed By: #### M ISC #### [facility] [address] [place] [address] Dr. Sveta Velasquez MANUAL DIFF REQ NO Normal [facility] Comment on above: Performed By: #### M ISC #### [facility] [address] [place] [address] Dr. Sveta Velasquez MCH (RBC) [Entitic mass] 33.7 pg Normal 26.7-34.0 [facility] Comment on above: Performed By: #### M ISC #### [facility] [address] [place] [address] Dr. Sveta Velasquez MCHC (RBC) [Mass/Vol] 37.5 g/dL Critically high 29.9-35.2 [facility] Comment on above: Performed By: #### M ISC #### [facility] [address] [place] [address] Dr. Sveta Velasquez MCV (RBC) [Entitic vol] 89.6 fL Normal 81.0-99.0 [facility] Comment on above: Performed By: #### M ISC #### [facility] [address] [place] [address] Dr. Sveta Velasquez MONO # 0.6 103/ul Normal 0.3-0.8 [facility] Comment on above: Performed By: #### M ISC #### [facility] [address] [place] [address] Dr. Sveta Velasquez Monocytes/100 WBC (Bld) 6.3 % Normal 1.7-12.0 [facility] Comment on above: Performed By: #### M ISC #### [facility] [address] [place] [address] Dr. Sveta Velasquez NEUT # 4.5 103/ul Normal 1.4-6.5 [facility] Comment on above: Performed By: #### M ISC #### [facility] [address] [place] [address] Dr. Sveta Velasquez Neutrophils/100 WBC (Bld) 51.0 % Normal 43.0-75.0 [facility] Comment on above: Performed By: #### M ISC #### [facility] [address] [address] [address] Sveta Velasquez Platelet mean volume (Bld) [Entitic vol] 10.2 fL Normal 9.5-13.5 [facility] Comment on above: Performed By: #### M ISC #### [facility] [address] [address] [address] Sveta Velasquez PLT 211 103/ul Normal 150-450 [facility] Comment on above: Performed By: #### M ISC #### [facility] [address] [place] [address] Dr. Sveta Velasquez RBC 5.02 106/ul Normal 4.20-5.40 [facility] Comment on above: Performed By: #### M ISC #### [facility] [address] [place] [address] Dr. Sveta Velasquez WBC 8.9 103/ul Normal 4.0-11.0 [facility] Comment on above: Performed By: #### M ISC #### [facility] [address] [place] [address] HEAD WO CONon [...] LUZ HEREDIA Date: 2022-04-13 01:36 Normal [facility] Comprehensive Metabolic Pane [facility] 04-13-2022 Albumin [Mass/Vol] 4.4 g/dL Normal 3.2-5.5 [facility] Comment on above: Performed By: #### C KMB, HS TROP, CK, CMP, CRP, PHENY #### [address] Albumin/Globulin [Mass ratio] 1.4 {ratio} Normal [facility] Comment on above: Performed By: #### C KMB, HS TROP, CK, CMP, CRP, PHENY #### [address] ALP [Catalytic activity/Vol] 97 U/L High 32-92 [facility] Comment on above: Performed By: #### C KMB, HS TROP, CK, CMP, CRP, PHENY #### [address] ALT [Catalytic activity/Vol] 26 U/L Normal 10-60 [facility] Comment on above: Performed By: #### C KMB, HS TROP, CK, CMP, CRP, PHENY #### [address] AST [Catalytic activity/Vol] 29 U/L Normal 10-42 [facility] Comment on above: Performed By: #### C KMB, HS TROP, CK, CMP, CRP, PHENY #### [address] Bilirubin [Mass/Vol] 0.7 mg/dL Normal 0.3-1.2 [facility] Comment on above: Performed By: #### C KMB, HS TROP, CK, CMP, CRP, PHENY #### [facility] [address] Calcium [Mass/Vol] 10.3 mg/dL High 8.2-10.2 [facility] Comment on above: Performed By: #### C KMB, HS TROP, CK, CMP, CRP, PHENY #### [facility] [address] Chloride [Moles/Vol] 92 mmol/L Low 95-114 [facility] Comment on above: Performed By: #### C KMB, HS TROP, CK, CMP, CRP, PHENY #### [facility] [address] CO2 [Moles/Vol] 21.3 mmol/L Low 22.0-30.0 [facility] Comment on above: Performed By: #### C KMB, HS TROP, CK, CMP, CRP, PHENY #### [address] Creatinine [Mass/Vol] 0.72 mg/dL Normal 0.44-1.03 [facility] Comment on above: Performed By: #### C KMB, HS TROP, CK, CMP, CRP, PHENY #### [address] Estimated GFR ( Katerina > 60 [facility] Comment on above: Result Comment: GFR estimated reference range: According to KDOQI guidelines, <60 ml/min/1.73m2 is sufficient to diagnose a patient with chronic kidney disease. Performed By: #### C KMB, HS TROP, CK, CMP, CRP, PHENY #### [address] Estimated GFR (Non- Am > 60 [facility] Comment on above: Performed By: #### C KMB, HS TROP, CK, CMP, CRP, PHENY #### [address] Globulin (S) [Mass/Vol] 3.1 g/dL [facility] Comment on above: Performed By: #### C KMB, HS TROP, CK, CMP, CRP, PHENY #### [facility] [address] Glucose [Mass/Vol] 407 mg/dL High 70-100 [facility] Comment on above: Result Comment: [place] Glucose Reference Range is dependent on time and content of last meal. Glucose of more than 200 mg/dL in a nonstressed, ambulatory subject supports the diagnosis of Diabetes Mellitus. ADA recommended reference range Performed By: #### C KMB, HS TROP, CK, CMP, CRP, PHENY #### [facility] [address] Potassium [Moles/Vol] 4.4 mmol/L Normal 3.5-5.1 [facility] Comment on above: Performed By: #### C KMB, HS TROP, CK, CMP, CRP, PHENY #### [facility] [address] Protein [Mass/Vol] 7.5 g/dL Normal 6.1-7.9 [facility] Comment on above: Performed By: #### C KMB, HS TROP, CK, CMP, CRP, PHENY #### [address] Sodium [Moles/Vol] 134 mmol/L Low 136-146 [facility] Comment on above: Performed By: #### C KMB, HS TROP, CK, CMP, CRP, PHENY #### [facility] [address] Urea nitrogen [Mass/Vol] 15 mg/dL Normal 9-23 [facility] Comment on above: Performed By: #### C KMB, HS TROP, CK, CMP, CRP, PHENY #### [facility] [address] [place] [address] [place] Creatine Kinaseon 04-13-2022 CK [Catalytic activity/Vol] 55 U/L Normal 22-269 [facility] Comment on above: Performed By: #### C K, CKMB, HS TROP #### [facility] [address] [place] [address] [facility] CK [Catalytic activity/Vol] 23 U/L Normal [facility] Comment on above: Performed By: #### C K, HS TROP, CKMB #### [facility] [address] CK [Catalytic activity/Vol] 81 U/L Normal [facility] Comment on above: Performed By: #### C KMB, HS TROP, CK, CMP, CRP, PHENY #### [facility] [address] [place] [address] [place] Creatine kinase [Enzymatic a ctivity/volume] in Serum or PlasmaOrdered By: Marito Villalobos on 04-13-2022 CK [Catalytic activity/Vol] 55 U/L [facility] Creatinine Kinase MBon 04-13 CK.MB [Mass/Vol] 1.1 ng/mL Normal 0.6-6.3 [facility] Comment on above: Performed By: #### C K, CKMB, HS TROP #### [facility] [address] CKMB Relative Index 2.0 % Normal 0.00-2.50 [facility] Comment on above: Performed By: #### C K, CKMB, HS TROP #### [facility] [address] CK.MB [Mass/Vol] 1.1 ng/mL Normal 0.6-6.3 [facility] Comment on above: Performed By: #### C KMB, HS TROP, CK, CMP, CRP, PHENY #### [facility] [address] [place] [address] [place] CKMB Relative Index 4.7 % High 0.00-2.50 [facility] Comment on above: Performed By: #### C KMB, HS TROP, CK, CMP, CRP, PHENY #### [facility] [address] CK.MB [Mass/Vol] 1.3 ng/mL Normal 0.6-6.3 [facility] Comment on above: Performed By: #### C KMB, HS TROP, CK, CMP, CRP, PHENY #### [facility] [address] [place] [address] [place] CKMB Relative Index 1.6 % Normal 0.00-2.50 [facility] Comment on above: Performed By: #### C KMB, HS TROP, CK, CMP, CRP, PHENY #### [facility] [address] Creatinine and Glomerular fi ltration rate.predicted panel (S/P/Bld)Ordered By: Marito Villalobos on 04-13-2022 Creatinine [Mass/Vol] 0.72 mg/dL 0.44-1.03 [facility] Estimated glomerular filtrat ion rate (GFR) non- AmericanOrdered By: Marito Villalobos on 04-13-2022 GFR/1.73 sq M.predicted among non-blacks MDRD (S/P/Bld) [Vol rate/Area] > 60 mL/Min [facility] Globulin Calc (S) [Mass/Vol] Ordered By: Marito Villalobos on 04-13-2022 Globulin (S) [Mass/Vol] 3.1 g/dL [facility] LAB TESTINGon 04-13-2022 RECV HEADER SEE SCANNED REPORT IN HPF Normal [facility] Comment on above: Performed By: #### M ISC #### [facility] [address] [place] [address] Dr. Sveta Velasquez REV FROM REF LAB 04/13/2022 [facility] Comment on above: Performed By: #### M ISC #### [facility] [address] [address] [address] Sveta Velasquez SENT TO REF LAB 04/13/2022 Normal [facility] Comment on above: Result Comment: TO F [facility] Performed By: #### M ISC #### [facility] [address] [address] [address] Sveta Velasquez RECV HEADER SEE SCANNED REPORT IN [facility] Normal [facility] Comment on above: Performed By: #### M ISC #### [facility] [address] [address] [address] Sveta Velasquez REV FROM REF LAB 04/13/2022 Normal [facility] Comment on above: Performed By: #### M ISC #### [facility] [address] [place] [address] Dr. Sveta Velasquez SENT TO REF LAB 04/13/2022 Normal [facility] Comment on above: Result Comment: TO F [facility] Performed By: #### M ISC #### [facility] [address] [place] [address] Dr. Sveta GRAY HEADER SEE SCANNED REPORT IN HPF Normal [facility] Comment on above: Performed By: #### M ISC #### [facility] [address] [place] [address] Dr. Sveta Velasquez REV FROM REF LAB 04/13/2022 [facility] Comment on above: Performed By: #### M ISC #### [facility] [address] [place] [address] Dr. Sveta Velasquez SENT TO REF LAB 04/13/2022 [facility] Comment on above: Result Comment: TO [facility] Performed By: #### M ISC #### [facility] [address] [place] [address] Dr. Sveta GRAY HEADER SEE SCANNED REPORT IN HPF Normal [facility] Comment on above: Performed By: #### M ISC #### [facility] [address] [place] [address] Dr. Sveta Velasquez REV FROM REF LAB 04/13/2022 [facility] Comment on above: Performed By: #### M ISC #### [facility] [address] [place] [address] Dr. Sveta Velasquez SENT TO REF LAB 04/13/2022 [facility] Comment on above: Result Comment: TO F [facility] Performed By: #### M ISC #### [facility] [address] [place] [address] Dr. Sveta GRAY HEADER SEE SCANNED REPORT IN HPF Normal [facility] Comment on above: Performed By: #### V ITAD #### [facility] [address] [address] [address] Sveta Velasquez REV FROM REF LAB 04/13/2022 [facility] Comment on above: Performed By: #### V ITAD #### [facility] [address] [place] [address] Dr. Sveta Velasquez SENT TO REF LAB 04/13/2022 [facility] Comment on above: Result Comment: [place] [facility] Performed By: #### V ITAD #### [facility] [address] [address] [address] Sveta Velasquez RECV HEADER SEE SCANNED REPORT IN HPF [facility] Comment on above: Performed By: #### M ISC #### [facility] [address] [place] [address] Dr. Sveta Velasquez REV FROM REF LAB 04/13/2022 [facility] Comment on above: Performed By: #### M ISC #### [facility] [address] [place] [address] Dr. Svtea Velasquez SENT TO REF LAB 04/13/2022 [facility] Comment on above: Result Comment: [facility] Performed By: #### M ISC #### [facility] [address] [place] [address] Dr. Sveta Velasquez No Panel InformationOrdered By: Marito Villalobos on 04-13-2022 Estimated GFR () > 60 mL/Min [facility] Comment on above: GFR estimated refere nce range: According to KDOQI guidelines, <60 ml/min/1.73m2 is sufficient to diagnose a patient with chronic kidney disease. Pharmacy Creatinine Clearance (Chem N/A [facility] Phenytoin (Dilantin)on 04-13 Phenytoin [Mass/Vol] 8.2 ug/mL Low 10.0-20.0 [facility] Comment on above: Order Comment: Date of last dose?: 20220412 Time of last dose?: 399 Result Comment: Last dose: - PERFORMED BY: [address] [address] [place] [address] PATHOLOGIST BUYER ASSISTANT JIANLAN SUN M.D. Performed By: #### C KMB, HS TROP, CK, CMP, CRP, PHENY #### [facility] [address] Protein [Mass/volume] in Ser um or PlasmaOrdered By: Marito Villalobos on 04-13-2022 Protein [Mass/Vol] 7.5 g/dL 6.1-7.9 [facility] SED RATE WESTERGRENon 2021 SED RATE 17 mm/hr Normal <=30 [facility] Comment on above: Performed By: #### S EDR #### [facility] [address] [address] [address] Sveta Velasquez Serum or plasma C reactive p rotein measurement (mass/volume)Ordered By: Marito Villalobos on 04-13-2022 CRP [Mass/Vol] 0.6 mg/dL 0.0-1.0 [facility] Serum or plasma alanine jerez otransferase measurement without P-5'-P (enzymatic activiOrdered By: Marito Villalobos on 04-13-2022 ALT No additional P-5'-P [Catalytic activity/Vol] 26 U/L 10-60 [facility] Serum or plasma albumin/glob ulin mass ratioOrdered By: Marito Villalobos on 04-13-2022 Albumin/Globulin [Mass ratio] 1.4 {ratio} [facility] Serum or plasma alkaline kat sphatase measurement (enzymatic activity/volume)Ordered By: Marito Villalobos on 04-13-2022 ALP [Catalytic activity/Vol] 97 U/L 32-92 [facility] Serum or plasma aspartate am inotransferase measurement (enzymatic activity/volume)Ordered By: Marito Villalobos on 04-13-2022 AST [Catalytic activity/Vol] 29 U/L 10-42 [facility] Serum or plasma calcium hoa urement (mass/volume)Ordered By: Marito Villalobos on 04-13-2022 Calcium [Mass/Vol] 10.3 mg/dL 8.2-10.2 [facility] Serum or plasma chloride kilo surement (moles/volume)Ordered By: Marito Villalobos on 04-13-2022 Chloride [Moles/Vol] 92 mmol/L 95-114 [facility] Serum or plasma creatine kin ase MB (CKMB)/total creatine kinase (CK) ratio by calculaOrdered By: Marito Villalobos on 04-13-2022 CK.MB Calc [Catalytic fraction] 2.0 % 0.00-2.50 [facility] Serum or plasma creatine kin ase MB measurement (mass/volume)Ordered By: Marito Villalobos on 04-13-2022 CK.MB [Mass/Vol] 1.1 ng/mL 0.6-6.3 [facility] Serum or plasma glucose hoa urement (mass/volume)Ordered By: Marito Villalobos on 04-13-2022 Glucose [Mass/Vol] 407 mg/dL 70-100 [facility] Comment on above: ADA recommended refe rence range Random Glucose Reference Range is dependent on time and content of last meal. Glucose of more than 200 mg/dL in a nonstressed, ambulatory subject supports the diagnosis of Diabetes Mellitus. Serum or plasma phenytoin me asurement (mass/volume)Ordered By: Marito Villalobos on 04-13-2022 Phenytoin [Mass/Vol] 8.2 ug/mL 10.0-20.0 [facility] Comment on above: Last dose: - Serum or plasma potassium me asurement (moles/volume)Ordered By: Marito Villalobos on 04-13-2022 Potassium [Moles/Vol] 4.4 mmol/L 3.5-5.1 [facility] Serum or plasma sodium measu rement (moles/volume)Ordered By: Marito Villalobos on 04-13-2022 Sodium [Moles/Vol] 134 mmol/L 136-146 [facility] Serum or plasma total biliru bin measurement (mass/volume)Ordered By: Marito Villalobos on 04-13-2022 Bilirubin [Mass/Vol] 0.7 mg/dL 0.3-1.2 [facility] Serum or plasma total carbon dioxide measurement (moles/volume)Ordered By: Marito Villalobos on 04-13-2022 CO2 [Moles/Vol] 21.3 mmol/L 22.0-30.0 [facility] Serum or plasma urea nitroge n measurement (mass/volume)Ordered By: Marito Villalobos on 04-13-2022 Urea nitrogen [Mass/Vol] 15 mg/dL - [facility] Troponin I High Sensitivityo n 04-13-2022 Troponin I High Sensitivity < 3 Normal 0-15 [facility] Comment on above: Result Comment: PERF ORMED BY: [facility] [address] [place] [address] PATHOLOGIST BUYER ASSISTANT JOSH MESSINA M.D. Performed By: #### C K, CKMB, HS TROP #### [facility] [address] [id number] [place] Troponin I High Sensitivity 3 pg/mL Normal 0-15 [facility] Comment on above: Result Comment: PERF ORMED BY: [facility] [address] [place] [address] PATHOLOGIST BUYER ASSISTANT JOSH MESSINA M.D. Performed By: #### C KMB, HS TROP, CK, CMP, CRP, PHENY #### [facility] [address] [id number] [place] Troponin I High Sensitivity 3 pg/mL Normal 0-15 [facility] Comment on above: Result Comment: PERF ORMED BY: [facility] [address] [place] [address] PATHOLOGIST BUYER ASSISTANT JOSH MESSINA M.D. Performed By: #### C KMB, HS TROP, CK, CMP, CRP, PHENY #### [facility] [address] [place], [place] [phone] [place] Troponin I.cardiac [Mass/vol ume] in Serum or Plasma by High sensitivity methodOrdered By: Marito Villalobos on 04-13-2022 Troponin I.cardiac High sensitivity method [Mass/Vol] < 3 pg/mL 0-15 [facility] Ambulatory Visit Summaryon 0 03-29-2022 Ambulatory Visit Summary KRISTIN NULL :1960 Visit [...] mg Tab) mometasone nasal (Nasonex 50 mcg/inh [place]) phenytoin (Dilantin 100 mg Cap-ER) phenytoin (Dilantin [...] Unchanged mometasone nasal (Nasonex 50 mcg/ inh [place]) 1 Sprays Nasal Inhalation 2 times a [...] syndrome Parathyroid adenoma Temporal lobe epilepsy Normal [facility] Physician Referralon 022 Physician Referral [id number] Normal [facility] [id number] 02-09-2021 SARS-CoV-[address] [facility] Comment on above: Performed By: #### C OVID #### [facility] [address] [place] [address] Prior Authorization Technician: Chavez Rivera MD [facility] [employer] [address] [place], [place] [phone] Prior Authorization Technician: Kenyon Hewitt MD SARS-CoV-2 Not Detected Normal [facility] Comment on above: Result Comment: The specimen is NEGATIVE for SARS-CoV-2, the novel coronavirus associated with COVID-19. A negative result does not rule out COVID-19. Mariah SARS-CoV-2 for use on the Mariah 6800/8800 Systems is a real-time RT-PCR test intended [...] this assay. Fact sheet for Healthcare Providers: https://www.fda.gov/media/713218/download Fact sheet for Patients: https://www.fda.gov/media/842713/download METHODOLOGY: RT-PCR Performed By: #### C OVID #### [facility] [address] [place], [place] [phone] Prior Authorization Technician: Chavez Rivera MD [facility] [employer] [facility] [place], [place] [phone] Prior Authorization Technician: Kenyon Hewitt MD [id number] 02-08-2021 SARS-CoV-2 Source .NASOPHARYNGEAL SWAB Normal [facility] Comment on above: Performed By: #### C OVID #### [facility] [address] [place], [place] [id number] Prior Authorization Technician: Chavez Rivera MD [facility] [employer] [address] [place] [address] [phone] Prior Authorization Technician: Kenyon Hewitt MD Vital Signs Date Time Vital Sign Value Performing Clinician Facility 09-23-2024 15:07-0500 Body mass index (BMI) [Ratio] 37.11 kg/m2 Florin Burgos MD Work Phone: [facility] 09-23-2024 15:07-0500 Body weight 86.18 kg Florin Burgos MD Work Phone: [facility] 09-23-2024 15:07-0500 Diastolic blood pressure 89 mm[Hg] Florin Burgos MD Work Phone: [facility] 09-23-2024 15:07-0500 Heart rate 75 /min Florin Burgos MD Work Phone: [facility] 09-23-2024 15:07-0500 Systolic blood pressure 168 mm[Hg] Florin Burgos MD Work Phone: [facility] 07-05-2024 15:42-0400 Diastolic blood pressure 80 mm[Hg] Florin Burgos MD Work Phone: [facility] 07-05-2024 15:42-0400 Systolic blood pressure 130 mm[Hg] Florin Burgos MD Work Phone: [facility] 12-25-2023 15:49-0500 Body mass index (BMI) [Ratio] 37.11 kg/m2 Florin Burgos MD Work Phone: [facility] 12-25-2023 15:49-0500 Body weight 86.18 kg Florin Burgos MD Work Phone: [facility] 12-25-2023 15:49-0500 Diastolic blood pressure 90 mm[Hg] Florin Burgos MD Work Phone: [facility] 12-25-2023 15:49-0500 Systolic blood pressure 147 mm[Hg] Florin Burgos MD Work Phone: [facility] 11-06-2023 13:45-0500 Body temperature 97.7 [degF] Endy Cruz MD [facility]: [facility] 11-06-2023 13:45-0500 Diastolic blood pressure 64 mm[Hg] Endy Cruz MD Work Phone: [facility] 11-06-2023 13:45-0500 Heart rate 77 /min Endy Cruz MD Work Phone: [facility] 11-06-2023 13:45-0500 Respiratory rate 16 /min Endy Cruz MD Work Phone: [employer] [facility] 11-06-2023 13:45-0500 SaO2% (BldA) [Mass fraction] 93 % Endy Cruz MD Work Phone: [employer] [facility] 11-06-2023 13:45-0500 Systolic blood pressure 120 mm[Hg] Endy Cruz MD Work Phone: [employer] 11-06-2023 11:03-0500 Body height 152.4 cm Endy Cruz MD Work Phone: [employer] [facility] 11-06-2023 11:03-0500 Body mass index (BMI) [Ratio] 37.11 kg/m2 Endy Cruz MD Work Phone: [employer] 11-06-2023 11:03-0500 Body weight 86.18 kg Endy Cruz MD Work Phone: [facility] 10-29-2022 12:20-0500 Respiratory rate 18 /min Endy Cruz MD Work Phone: [facility] 10-29-2022 11:24-0500 Body temperature 98.01 [degF] Endy Cruz MD Work Phone: [facility] 10-29-2022 11:24-0500 Diastolic blood pressure 82 mm[Hg] Endy Cruz MD Work Phone: [facility] [employer] 10-29-2022 11:24-0500 Heart rate 88 /min Endy Cruz MD Work Phone: [facility] 10-29-2022 11:24-0500 SaO2% (BldA) [Mass fraction] 93 % Endy Cruz MD Work Phone: [facility] [employer] 10-29-2022 11:24-0500 Systolic blood pressure 143 mm[Hg] Endy Cruz MD Work Phone: [facility] [employer] 10-28-2022 12:15-0500 Body height 152.4 cm Endy Cruz MD Work Phone: [facility] 10-28-2022 12:15-0500 Body mass index (BMI) [Ratio] 33.98 kg/m2 Endy Cruz MD Work Phone: [facility] [employer] 10-28-2022 12:15-0500 Body weight 78.93 kg Endy Cruz MD Work Phone: [facility] [employer] 09-04-2022 09:10-0400 Respiratory rate 17 /min Endy Cruz MD Work Phone: [facility] [employer] 09-04-2022 08:30-0400 Body temperature 98.71 [degF] Endy Cruz MD Work Phone: [facility] [employer] 09-04-2022 08:30-0400 Diastolic blood pressure 84 mm[Hg] Endy Cruz MD Work Phone: [facility] 09-04-2022 08:30-0400 Heart rate 107 /min Endy Cruz MD Work Phone: [facility] [employer] [facility] [employer] 09-04-2022 08:30-0400 SaO2% (BldA) [Mass fraction] 96 % Endy Cruz MD Work Phone: [facility] 09-04-2022 08:30-0400 Systolic blood pressure 149 mm[Hg] Endy Cruz MD Work Phone: [facility] 09-02-2022 08:03-0400 Body height 152.4 cm Endy Cruz MD Work Phone: [facility] [employer] [email or web address] 09-02-2022 08:03-0400 Body mass index (BMI) [Ratio] 32.03 kg/m2 Endy Cruz MD Work Phone: [facility] 09-02-2022 08:03-0400 Body weight 74.39 kg Endy Cruz MD Work Phone: [facility] 08-28-2022 10:16-0400 Body height 152.4 cm Stvz 1 [facility] [employer] [facility] [email or web address] 08-28-2022 10:16-0400 Body mass index (BMI) [Ratio] 32.03 kg/m2 Stvz 1 [facility] 08-28-2022 10:16-0400 Body temperature 97.5 [degF] Stvz 1 [facility] [employer] [facility] [employer] 08-28-2022 10:16-0400 Body weight 74.39 kg Stvz 1 [employer] 08-28-2022 10:16-0400 Diastolic blood pressure 77 mm[Hg] Stvz 1 [facility] [employer] [email or web address] 08-28-2022 10:16-0400 Heart rate 78 /min Stvz 1 [facility] [employer] D[employer] [facility] [email or web address] 08-28-2022 10:16-0400 Respiratory rate 16 /min Stvz 1 [facility] [employer] [facility] [employer] 08-28-2022 10:16-0400 SaO2% (BldA) [Mass fraction] 96 % Stvz 1 [facility] [employer] 08-28-2022 10:16-0400 Systolic blood pressure 117 mm[Hg] Stvz 1 [facility] [employer] 06-17-2022 17:29-0400 Diastolic blood pressure 93 mm[Hg] Seamus Handy MD [facility] [employer] [facility] [employer] 06-17-2022 17:29-0400 Heart rate 97 /min Seamus Handy MD [facility] [employer] 06-17-2022 17:29-0400 Respiratory rate 18 /min Seamus Handy MD [facility] [employer] 06-17-2022 17:29-0400 SaO2% (BldA) [Mass fraction] 97 % Seamus Handy MD [facility] [employer] [facility] [employer] 06-17-2022 17:29-0400 Systolic blood pressure 160 mm[Hg] Seamus Handy MD [facility] [employer] [facility] [employer] 06-17-2022 16:42-0400 Body height 152.4 cm Seamus Handy MD [facility] [employer] [facility] [employer] 06-17-2022 16:42-0400 Body mass index (BMI) [Ratio] 31.25 kg/m2 Seamus Handy MD [facility] [employer] [facility] [employer] 06-17-2022 16:42-0400 Body temperature 98.6 [degF] Seamus Handy MD [facility] [employer] 06-17-2022 16:42-0400 Body weight 72.58 kg Seamus Handy MD [facility] [employer] [facility] [employer] 03-29-2022 13:41-0400 Blood Pressure Location Luz GLADYS [facility] [place] 03-29-2022 13:41-0400 Diastolic blood pressure 84 mm[Hg] Luz GLADYS [facility] [place] 03-29-2022 13:41-0400 Heart rate 84 /min Luz GLADYS [facility] [place] 03-29-2022 13:41-0400 Respiratory rate 16 /min Luz GRAHAM [facility] [place] 03-29-2022 13:41-0400 Systolic blood pressure 128 mm[Hg] Luz GRAHAM [facility] [place] 02-12-2021 13:40-0400 Body Temperature 97.3 [degF] Endy [employer] Phone: 02-12-2021 13:40-0400 BP Diastolic 99 mm[Hg] [employer]y [employer] Phone: 02-12-2021 13:40-0400 BP Systolic 153 mm[Hg] [employer]y [employer] Phone: 02-12-2021 13:40-0400 Pulse (Heart Rate) 95 /min Endy [employer] Phone: 02-12-2021 13:40-0400 Pulse Oximetry 94 % Endy [employer] Phone: 02-12-2021 13:40-0400 Respiratory Rate 14 /min [employer] Phone: 02-12-2021 09:46-0400 BMI (Body Mass Index) 37.3 kg/m2 [employer]y [employer] Phone: 02-12-2021 09:46-0400 Body weight 86.64 kg Endy [employer] Phone: 02-12-2021 09:46-0400 Height 152.4 cm Endy [employer] Phone: Encounters Encounter Date Encounter Type Care Provider Facility Start: 04-08-2025 ambulatory ROSALBA GREGORIO [facility] Start: 03-11-2025 [facility] Start: 03-02-2025 End: 03-02-2025 ambulatory FLORIN BURGOS Not Available Start: 03-02-2025 End: 03-02-2025 Office outpatient visit 25 minutes Florin Burgos MD Work Phone: [facility] Comment on above: Chronic insomnia; Focal epilepsy (CMS/HCC); Generalized seizure disorder (CMS/HCC); Seizure (CMS/HCC) Start: 03-02-2025 End: 03-02-2025 Bamboo Lowdownapp Ltdcierra Burgos MD Work Phone: [facility] Start: 03-02-2025 End: 03-02-2025 BamParAccelcierra Burgos MD Work Phone: [facility] Start: 02-25-2025 [facility] Start: 02-11-2025 [facility]ulatory [facility] Start: 01-21-2025 ambulatory [facility] Start: 12-09-2024 [facility] Start: 12-02-2024 End: 12-02-2024 ambulatory FLORIN BURGOS Not Available Start: 12-02-2024 End: 12-02-2024 Office outpatient visit 25 minutes Florin Burgos MD Work Phone: [facility] Comment on above: Cervical radiculopat hy (Primary Dx); Complex partial seizure with impairment of consciousness (CMS/HCC); Obstructive sleep apnea syndrome; Seizure (CMS/HCC); Temporal lobe epilepsy (CMS/HCC) Start: 12-02-2024 End: 12-02-2024 BamParAccelcierra Burgos MD Work Phone: [facility] Start: 12-02-2024 End: 12-02-2024 BamParAccelcierra uBrgos MD Work Phone: [facility] Start: 11-19-2024 ambulatory ROSALBA GREGORIO [facility] Start: 10-22-2024 ambulatory ROSALBA Garcia. JG [facility] Start: 09-23-2024 End: 09-23-2024 Clinical Support Florin Burgos MD Work Phone: [facility] Comment on above: Other nerve root and plexus disorders (Primary Dx); Chronic insomnia; 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; Focal epilepsy (CMS/HCC); Trochanteric bursitis, right hip Start: 09-23-2024 End: 09-23-2024 Bamboo flowsheet Florin Burgos MD Work Phone: [facility] Start: 09-23-2024 End: 09-23-2024 BamCS Disco Lowdownapp Ltdheet Florin Burgos MD Work Phone: [facility] Start: 09-17-2024 End: 09-17-2024 Telephone encounter Florin Burgos MD Work Phone: [facility] Start: 09-17-2024 ambulatory ROSALBA Jose. YANIRoseline [facility] Start: 08-20-2024 ambulatory ROSALBA Jose. YANIRoseline [facility] Start: 07-30-2024 ambulatory ROSALBA Jose. YANIRoseline [facility] Start: 07-05-2024 End: 07-05-2024 Office outpatient visit 25 minutes Florin Burgos MD Work Phone: [facility] Comment on above: Focal epilepsy (CMS/ HCC) (Primary Dx); Seizure disorder (CMS/HCC); Acute carpal tunnel syndrome of right wrist; Cervical radiculopathy; Complex partial seizure with impairment of consciousness (CMS/HCC) Start: 07-05-2024 End: 07-05-2024 ambulatory FLORIN BURGOS Not Available Start: 06-25-2024 End: 07-05-2024 Telephone encounter La DIETRICH Work Phone: [facility] Comment on above: Advice Only Start: 06-25-2024 ambulatory ROSALBA GREGORIO [facility] Start: 06-15-2024 End: 06-15-2024 ambulatory LA ZURITA Not Available Start: 05-28-2024 ambulatory ROSALBA GREGORIO [facility] Start: 05-03-2024 ambulatory ROSALBA GREGORIO [facility] Start: 04-15-2024 ambulatory ROSALBA GREGORIO [facility] Start: 03-25-2024 End: 03-25-2024 ambulatory FLORIN BURGOS Not Available Start: 02-08-2024 End: 02-08-2024 [facility] Start: 12-25-2023 End: 12-25-2023 Office outpatient visit 25 minutes Florin Burgos MD Work Phone: [facility] Comment on above: Acute carpal tunnel syndrome of right wrist (Primary Dx); Seizure (CMS/HCC); Allodynia; Cervical radiculopathy; Complex partial seizure with impairment of consciousness (CMS/HCC) Start: 12-24-2023 Chart abstracting Florin saldivar MD Work Phone: [facility] Start: 11-06-2023 End: 11-06-2023 ambulatory ENDY [facility] Start: 11-06-2023 End: 11-06-2023 Subsequent hospital visit by physician Endy Cruz MD Work Phone: [facility] [place] Comment on above: Acute postoperative pain (Primary Dx) Start: 08-18-2023 End: 08-18-2023 ambulatory ENDY [facility] Start: 08-05-2023 End: 08-10-2023 ambulatory ENDY [facility] Start: 08-05-2023 End: 08-10-2023 Encounter for other preprocedural examination ENDY CRUZ [facility] Start: 03-11-2023 End: 03-12-[address] [...] Emergency department patient visit Seamus Handy MD [facility] ED Comment on above: Yeast infection invo [...] encounter procedure MD Marito Villalobos Work Phone: [facility] Start: 04-13-2022 End: 04-13-[address] NIKI PEARSON . Facility:[facility] Start: 03-29-2022 End: 03-29-2022 Patient encounter procedure Luz GRAHAM General Surgery Nill/Myranda Sanchez Start: 03-20-2022 End: 03-21-[address] NIKI PEARSON . Facility:[facility] Start: 02-12-2021 End: 02-12-2021 Subsequent hospital visit by physician Endy Cruz Work Phone: [facility] Comment on above: Post-op pain (Primar y Dx) Start: 02-08-2021 End: 02-09-2021 Patient encounter procedure ENDY CRUZ [facility] Start: 02-08-2021 End: 02-08-2021 Subsequent hospital visit by physician Clive Covid Screening Schedule [facility] Covid Screening Comment on above: Preop testing (Prima ry Dx) Procedures Date Procedure Procedure Detail Performing Clinician Start: 11-06-2023 Glucose blood reagent strip Endy Cruz MD Work Phone: Start: 10-29-2022 Glucose blood reagent strip Endy Cruz MD Work Phone: Start: 10-29-2022 Glucose blood reagent strip Enyd Cruz MD Work Phone: Start: 10-29-20[address] BASIC METABOLIC PANE L W/ REFLEX TO MG FOR LOW K López Cash DO Work Phone: Start: 10-28-2022 Glucose blood reagent strip Endy Cruz MD Work Phone: Start: 10-28-2022 Glucose blood reagent strip Endy Cruz MD Work Phone: Start: 10-28-2022 Creatinine blood [place] y Balbir DO Work Phone: Start: 10-28-2022 [...] Start: 11-10-2013 Release of trigger finger Luz GIMENEZL Start: 11-10-2009 Arthroscopy of knee Oliverio hael NILL Start: 11-10-2006 Cholecystectomy Luz NILL Start: 11-10-2003 Parathyroidectomy Iron el PERNELLL Start: 11-10-1997 Internal impingement of right shoulder (disorder) Luz NILL Start: 11-10-1989 Excision of cyst Michae l NILL Comment on above: right breast x 2 Decompression of median nerve Luz NILL Endoscopy of vagina Luz NILL Excision of cyst Luz NIL L Comment on above: right dorsal foot History of spinal fusion Oliverio hael NILL Ligation of fallopian tube Farida GRAHAM Lobectomy of brain Luz DIAZ Comment on above: right temporal Repair of long head of biceps brachii Luz GRAHAM Repair of musculoten dinous cuff of shoulder Luz GRAHAM Repair of ulnar digital nerve Luz GRAHAM Sialendoscope (physi maritza object) Luz GRAHAM Plan of Treatment Date Care Activity Detail Author Start: 06-01-2025 End: 06-01-2025 Patient encounter procedure 06/01/2025 3:20 PM EDT Office Visit [facility] [address] [phone] Florin Burgos MD 53[address] [facility] [address] [address] [facility] Start: 03-02-2025 End: 03-02-2025 Patient encounter procedure 03/02/2025 3:20 PM EDT Office Visit [facility] [address] [phone] Florin Burgos MD [address] [facility] [address] [place] [address] [facility] Start: 12-02-2024 End: 12-02-2024 Clinical Support 12/02/2024 3:40 PM EST Clinical Support [facility] [address] [phone] Florin Burgos MD [address] [facility] [address] [place] [address] [facility] Start: 09-23-2024 End: 09-23-2024 Clinical Support [facility] Start: 08-05-2024 GFR test (Diabetes, CKD 3-4, OR last GFR 15-59) GFR test (Diabetes, CKD 3-4, OR last GFR 15-59) [facility] Start: 07-05-2024 End: 07-05-2024 Patient encounter procedure 07/05/2024 3:50 PM EDT Office Visit [facility] [address] [facility] [address] [place] [phone] lForin Burgos MD [address] [facility] [address] [place] [phone] [facility] Start: 03-25-2024 End: 03-25-2024 Patient encounter procedure 03/25/2024 3:30 PM EDT Office Visit [facility] [address] [facility] [address] [place] [phone] Florin Burgos MD 5319 [facility] [address] [address] [facility] Start: 12-25-2023 End: 12-25-2023 Patient encounter procedure 12/25/2023 3:40 PM EST Office Visit [facility] [address] [place] [phone] Florin Burgos MD 5319 [facility] [address] [address] [facility] Start: 11-06-2023 End: 11-06-2023 Neuroplasty &/transpos median nrv carpal tunne CARPAL TUNNEL RELEASE Right carpal tunnel syndrome 11/06/2023 12:39 PM [facility] Start: 06-10-2023 Influenza vaccination Flu vaccine (# 1) [facility] Start: 10-24-2022 Pneumococcal 0-64 ye ars Vaccine (2 - PPSV23 if available, else PCV20) Pneumococcal 0-64 years Vaccine (2 - PPSV23 if available, else PCV20) [facility] Start: 09-02-2022 End: 09-02-2022 CERVICAL LAMINECTOMY FUSION ANTERIOR CERVICAL LAMINECTOMY FUSION ANTERIOR 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) 09/02/2022 8:40 AM EDT [facility] Start: 07-11-2022 Influenza vaccination Flu vaccine (# 1) [email or web address] Start: 06-10-2022 Influenza vaccination Flu vaccine (# 1) [email or web address] Start: 12-19-2021 Pneumococcal 65+ yea rs Vaccine (2 - PPSV23 or PCV20) Pneumococcal 65+ years Vaccine (2 - PPSV23 or PCV20) [facility] Start: 07-11-2021 Influenza vaccination Flu vacc ine (Season Ended) [employer] Phone: Start: 02-12-2021 End: 02-12-2021 Hospital Encounter [facility] [place] Comment on above: KNEE ARTHROSCOPY WIT H MENISCECTOMY Start: 01-29-2021 Annual Wellness Visi t (AWV) Annual Wellness Visit (AWV) [facility] [employer] Start: 01-29-2021 End: 01-29-2022 COVID-19 COVID-19 Lab Routine Preop testing Expected: 01/29/2021, Expires: 01/29/2022 [employer] Phone: Comment on above: Expected: 01/29/2021 , Expires: 01/29/2022 Start: 07-16-2019 Screening for malign ant neoplasm of breast Breast cancer screen [facility] Start: 2018 Respiratory Syncytia l Virus (RSV) or age 60 yrs+ (1 - 1-dose 60+ series) Respiratory Syncytial Virus (RSV) or age 60 yrs+ (1 - 1-dose 60+ series) [facility] Start: 2013 Screening for osteoporosis DEXA (modify frequency per FRAX score) [facility] Start: 2008 Screening for malign ant neoplasm of breast Breast cancer screen [facility] Start: 2008 Screening for malign ant neoplasm of colon Colon cancer screen colonoscopy [employer] Phone: Start: 2008 Shingles Vaccine (1 of 2) Shingles Vaccine (1 of 2) [employer] Start: 2003 Screening for malign ant neoplasm of colon [employer] Start: 1998 Diabetes screen Diabetes screen [email or web address] Work Phone: Start: 1998 Lipid panel [employer] Start: 1993 Diabetes screen Diabetes screen [employer] Start: 1988 Screening for malign ant neoplasm of cervix [employer] Start: 1979 Screening for malign ant neoplasm of cervix [employer] Start: 1977 DTaP/Tdap/Td vaccine (1 - Tdap) DTaP/Tdap/Td vaccine (1 - Tdap) [employer] Start: 1976 Diabetic retinal exam Diabetic retin al exam [employer] Start: 1976 Glaucoma screening Diabetic retinal exam [facility] [employer] Start: 1976 Hepatitis C screening Hepatitis C sc reen [employer] Start: 1976 Urine screening for protein [facility] [employer] Start: 1974 COVID-19 Vaccine (1) COVID-19 Vaccin e (1) [employer] Work Phone: Start: 1973 HIV screening HIV screen [employer] Start: 1970 Depression Screen Depression Screen [facility] [employer] Start: 1968 Diabetic foot examination Diabetic foot exam [facility] [employer] Start: 1968 Hemoglobin A1c measurement A1C test (Diabetic or Prediabetic) [facility] [employer] Start: 1968 Lipid panel Lipids [facility] [employer] Start: 03-31-1959 COVID-19 Vaccine (#1) COVID-19 Vacci ne (#1) [employer] Start: 1958 Annual Wellness Visi t (AWV) Annual Wellness Visit (AWV) [employer] Start: 1958 Hepatitis C screening Hepatitis C [facility] [employer] Work Phone: Adult NIV/Positive Airway Pressure Adult NIV/Positive Airway Pressure Respiratory Care Routine Every 4hr until discontinued starting 09/03/2022 [employer] Phone: Comment on above: Every 4hr until disc ontinued starting 09/03/2022 End: 11-06-2023 Blood glucose - POCT [employer] Comment on above: One Time for 1 Occur rences starting 11/06/2023 until 11/06/2023 Continuous pulse oximetry Pulse oximetry, continuous Respiratory Care Routine Every 4hr until discontinued starting 09/02/2022 [employer] Phone: Comment on above: Every 4hr until disc ontinued starting 09/02/2022 End: 02-08-2021 COVID-19 COVID-19 Lab Routine Preop testing 1 Occurrences starting 02/08/2021 until 02/08/2021 [facility] Phone: Comment on above: 1 Occurrences starti ng 02/08/2021 until 02/08/2021 COVID-19 COVID-19 Lab Rou jassi Preop testing 02/08/2021 10:00 AM EDT [facility] Phone: End: 06-17-2022 Culture, Urine [employer] Comment on above: Once for 1 Occurrenc es starting 06/17/2022 until 06/17/2022 Glucose [Mass/volume ] in Serum or Plasma [employer] Phone: Comment on above: 4X Daily (AC & HS) u ntil discontinued starting 09/02/2022 As Needed until disc ontinued starting 09/02/2022 Glucose [Mass/volume ] in Serum or Plasma [employer] Phone: Comment on above: 4X Daily (AC & HS) u ntil discontinued starting 10/28/2022 As Needed until disc ontinued starting 10/28/2022 Home BIPAP or CPAP Home BIPAP or CPAP Respiratory Care Routine Daily until discontinued starting 09/02/2022 [employer] Work Phone: Comment on above: Daily until disconti nued starting 09/02/2022 End: 09-04-2022 Home O2 eval (desaturation screen) Home O2 eval (desaturation screen) Respiratory Care Routine One Time for 1 Occurrences starting 09/04/2022 until 09/04/2022 [employer] Phone: Comment on above: One Time for 1 Occur rences starting 09/04/2022 until 09/04/2022 End: 11-06-2023 INITIATE PACU OXYGEN THERAPY PROTOCOL Initiate PACU Oxygen Therapy Protocol Respiratory Care Routine Continuous until discontinued starting 11/06/2023 [employer] Phone: Comment on above: Continuous until dis continued starting 11/06/2023 Oxygen therapy [Mini mum Data Set] Initiate Oxygen Therapy Protocol Respiratory Care Routine Daily until discontinued starting 02/12/2021 [facility] Phone: Comment on above: Daily until disconti nued starting 02/12/2021 Oxygen therapy [Mini mum Data Set] Initiate Oxygen Therapy Protocol Respiratory Care Routine As Needed until discontinued starting 09/02/2022 [employer] Phone: Comment on above: As Needed until disc ontinued starting 09/02/2022 Oxygen therapy [Mini mum Data Set] Initiate Oxygen Therapy Protocol Respiratory Care Routine As Needed until discontinued starting 10/28/2022 [employer] Phone: Comment on above: As Needed until disc ontinued starting 10/28/2022 Oxygen therapy [Mini mum Data Set] Initiate Oxygen Therapy Protocol Respiratory Care Routine As Needed until discontinued starting 11/06/2023 [employer] Phone: Comment on above: As Needed until disc ontinued starting 11/06/2023 Phase I & II - meter ed glucose Phase I & II - metered glucose Point of Care Testing Routine As Needed until discontinued starting 02/12/2021 [employer] Phone: Comment on above: As Needed until disc ontinued starting 02/12/2021 End: 11-06-2023 , urine POCT , urine POCT Point of Care Testing Routine One Time for 1 Occurrences starting 11/06/2023 until 11/06/2023 [employer] Comment on above: One Time for 1 Occur rences starting 11/06/2023 until 11/06/2023 End: 09-03-2022 PREVIOUS SPECIMEN [employer] Phone: Comment on above: Once for 1 Occurrenc es starting 09/03/2022 until 09/03/2022 Spirometry panel Incentive marlen metry Respiratory Care Routine Every 2hr while awake until discontinued starting 09/02/2022 [employer] Phone: Comment on above: Every 2hr while awak e until discontinued starting 09/02/2022 Spirometry panel Incentive marlen metry RT Respiratory Care Routine Every 2hr while awake until discontinued starting 09/02/2022 [employer] Phone: Comment on above: Every 2hr while awak e until discontinued starting 09/02/2022 Spirometry panel Incentive marlen metry RT Respiratory Care Routine Every 2hr while awake until discontinued starting 09/03/2022 [employer] Phone: Comment on above: Every 2hr while awak e until discontinued starting 09/03/2022 Spirometry panel Incentive marlen metry Respiratory Care Routine Daily until discontinued starting 10/28/2022 [employer] Phone: Comment on above: Daily until disconti nued starting 10/28/2022 Immunizations Immunization Date Immunization Notes Care Provider Wil madden 10-24-2021 pneumococcal conjuga te vaccine, 13 valent La Zurita DPM Work Phone: [facility] 04-24-2021 pneumococcal polysaccharide vaccine, 23 valent La Zurita DPM Work Phone: [facility] 01-08-2017 pneumococcal polysaccharide vaccine, 23 valent La Zurita DPM Work Phone: [facility] Healthcare Payers Date Payer Category Payer Private Health Insurance [employer] [id number] 2023 Unknown [employer] [id number] 2023-Present [address] [place] [address] [id number] 2023 Unknown [id number]. [id number] 2001 Medicare [id number]. [id number] 2001 Medicare [id number] [id number]. [id number] 2001 Medicare [id number] 1959 Medicare [id number] [id number]. [id number] 1958 Unknown [id number] 2.16.840.1.633860.3.579.2. 177 1958 Unknown [id number] 2.16.840.1.353686.3.579.2. 593 1958 Unknown [id number] 2.16.840.1.770010.3.579.2. 593 1958 Unknown [id number] 2.16.840.1.188682.3.579.2. 593 1958 Unknown [id number] 2.16.840.1.820124.3.579.2. 593 1958 Unknown [id number] 2.16.840.1.547719.3.579.2. 593 1958 Unknown [id number] 2.16.840.1.328250.3.579.2. 593 1958 Unknown [id number] 2.16.840.1.666064.3.579.2. 593 1958 Unknown [id number] 2.16.840.1.861508.3.579.2. 593 1958 Unknown [id number] 2.16.840.1.141051.3.579.2. 593 1958 Unknown [id number] 2.16.840.1.389869.3.579.2. 593 1958 Unknown [id number] 2.16.840.1.038855.3.579.2. 593 1958 Unknown [id number] 2.16.840.1.454524.3.579.2. 593 1958 Unknown [id number] 2.16.840.1.689115.3.579.2. 175 1958 Unknown [id number] 2.16.840.1.072300.3.579.2. 175 1958 Unknown [id number] 2.16.840.1.799305.3.579.2. 175 1958 Unknown [id number] 2.16.840.1.332183.3.579.2. 175 1958 Unknown [id number] 2.16.840.1.689079.3.579.2. 1259 1958 Unknown [id number] 2.16.840.1.939442.3.579.2. 1259 1958 Unknown [id number] 2.16.840.1.900896.3.579.2. 1259 1958 Unknown [id number] 2.16.840.1.559474.3.579.2. 1259 1958 Unknown [id number] 2.16.840.1.829855.3.579.2. 1259 1958 Unknown [id number] 2.16.840.1.721027.3.579.2. 1259 Self-pay Self Pay [id number] Social History Date Type Detail Facility Start: 01-29-2021 End: 04-10-2023 Tobacco smoking status NDIS Never smoker [facility] Phone: Start: 01-29-2021 End: 04-10-2023 Tobacco use and exposure Never used [facility] Phone: Start: 01-29-2021 End: 11-06-2023 Alcohol intake Ex-drinker (finding) [facility] Phone: Start: 1960 Sex Assigned At Not on file [facility] Phone: Start: 06-07-2022 End: 10-28-2022 Exposure to SARS-CoV-2 (event) Not sure [facility] Phone: Tobacco smoking status Never [facility] Start: 06-17-2022 End: 03-02-2025 Sex Assigned At Female [facility] Start: 1960 Sex Assigned At Female [facility] Start: 06-17-2022 History SDOH Alcohol Frequency 1 [employer] Phone: Start: 06-17-2022 End: 03-02-2025 History of Social function [employer] How often to you hav e a drink containing alcohol? Never [employer] Start: 08-30-2022 Gender identity Identifies as female gender (finding) [employer] Start: 08-13-2023 Sexual [facility] (finding[facility] Start: 10-23-2023 End: 03-02-2025 Alcohol intake Lifetime non-drinker (finding) [facility] Healthcare Start: 04-09-2023 Alcohol Comment caffeine: 1-2 cups per day coffee, tea [facility] Medical Equipment Procedure Code Equipment Code Equipment Origin al Text Equipment Identifier Dates Spacer Spnl 7 De g [id number] [employer] Mis - [id number] Start: 09-02-2022 Impl Spinal Disc Cerv Mobi-C [id number] - [id number] Start: 10-28-2022 Clinical Notes 03-21-2022 to 04-08-2025 Florin Burgos MD - 03/02/2025 3:20 PM Kamilla Burgos MD - 12/02/2024 3:40 PM Edilma Cochran MA - 09/23/2024 3:20 PM ESTTelephone Encounter - Tejal Correa - 09/17/2024 11:02 AM EST Note Date & Type Note Facility 04-08-2025 Note Psych Progress Note Time In: 1231 Time Out: 1327 HPI Present at Visit: patient Location of Service: Patient Location: Home; Provider Location: Home Office Current Presenting Symptoms/Problems: Trauma: No trauma noted Depression =3/10; Anxiety =4-5/10; Pain = 5/10 (right knee) Patient said she has evaluation with [facility] [facility] [facility] in orthopedic surgery on 04/14/25 to move forward with knee replacement. She said Dr. Vega will be performing the surgery. She said physical therapist center manager commented that patient does not want a knee replacement because she will always have knee pain; patient shared this with orthopedist who reportedly told her this is incorrect. Patient also worried because a nurse commented that she will probably have her surgery in Fall, and patient said she cannot maintain status quo for the next several months. Patient said she is trying to connect with her siblings, but has not been able to. She is hoping she can visit her brother (Oskar) this weekend and speak with her sister (Sonam). Patient said she has been trying to cook a bit more, but she is stopping if the knee pain becomes intense. She said the cleaning ladies appear to be working out and they will be coming again next week. Individualized Service Plan (ISP): Treatment Plan Revision Date: 01/01/24 Review Date: 02/11/26 Concerns Referred/Deferred: Medical pain management Service Provider: [...] report a depression score <= 4/10 for 12 months Custom Objective: Patient will report an anxiety score <= 3/10 for 3 consecutive sessions Custom Objective: Patient will learn and utilize at least 2 nonpharmacological pain management strategies in 12 months Signed: Rosalba Gregorio, Ph.D. 02/11/2025 Progress Toward ISP Goals/Objectives: Depression > 4; Anxiety > 3 Therapeutic Interventions Provided: Assessed Mood, Assessed Thinking, Assessed Safety, Cognitive Behavioral Therapy, Psychoeducation, Supportive Psychotherapy, and Symptoms monitoring Reviewed symptoms and events since last session. The majority of session focused on forward movement towards knee replacement surgery and patient's worries. Patient encouraged to discuss worries with providers rather than relying on comments from individuals not involved in her treatment. Patient's catastrophizing about wait time was also addressed and she was encouraged to postpone thoughts of this until after evaluation next week. Patient agreed to try to do this. Patient also given time to review issues with her siblings. Patient provided with encouragement and support. Response [...] social judgment intact Reliability: very reliable Plan: Evaluation with [facility] at [facility] for knee replacement 04/14/25 Take comments from others with a grain of salt; address concerns with providers Patient will call if sooner appt needed This visit was conducted [id number] with the use of audio and video technology using [employer] and the patient was notified that using 3rd constitution party telecommunication application ([employer]) is HIPAA compliant. It was explained that the limits of confidentiality that exist during in-person sessions also apply for telepsychology sessions (i.e., where the patient indicates that he or she intends to harm self or others, the patie (more content not included)... [facility] 03-11-2025 Note Psych Progress Note Time In: 1230 Time Out: 1326 HPI Present at Visit: patient Location of Service: Patient Location: Home; Provider Location: Home Office Current Presenting Symptoms/Problems: Trauma: No trauma noted Depression =4-5/10; Anxiety = 6-7/10; Pain = 4-5/10 (right knee); Mourning=6-7/10 Patient crying at onset of session and said, It has not been a good week. Patient said anniversary of her father's is 03/08 and 03/11 is anniversary of his . Patient said he had a massive heart attack and that she and her mother were initially present when EMS crew worked on trying to revive her father. She said someone eventually escorted mother and patient out of the house. Patient said she was 15 years old when this happened and that she still has vivid flashbacks of the events that took place. She said that she tries to cope with the memories by having imaginary conversations with her father or trying to distract by doing some activity. She said her sister is intending to call her later this afternoon and that will help her. Patient had appointment with orthopedist who informed her that available nonsurgical treatments for knee have been utilized and that patient needs to have a knee replacement. Orthopedist provided her with several names and patient is awaiting call from orthopedic surgeon office to schedule procedure. Patient said she is having poor self-worth and negative self-talk in reaction to having joint replacement surgery because she perceives this to be a failure on her part. Patient said cleaning ladies came and cleaned the house and they agreed patient will have them come every other week. Patient is hopeful this will work out. Individualized Service Plan (ISP): Treatment Plan Revision Date: 01/01/24 Review Date: 02/11/26 Concerns Referred/Deferred: Medical pain management Service Provider: [...] report a depression score <= 4/10 for 12 months Custom Objective: Patient will report an anxiety score <= 3/10 for 3 consecutive sessions Custom Objective: Patient will learn and utilize at least 2 nonpharmacological pain management strategies in 12 months Signed: Rosalba Gregorio, Ph.D. 02/11/2025 Progress Toward ISP Goals/Objectives: Depression > 4; Anxiety > 3 Therapeutic Interventions Provided: Assessed Mood, Assessed Thinking, Assessed Safety, Cognitive Behavioral Therapy, Psychoeducation, Supportive Psychotherapy, and Symptoms monitoring Reviewed symptoms and events since last session. The majority of session focused on bereavement issues and ways patient can cope with negative memories. Patient open and receptive to discussion. We also processed patient's reaction to learning she needs knee replacement and discussed use of cognitive challenging/reframing to address negative self-talk. Patient provided with encouragement and support. Response to Intervention: Agreeable Overall Assessment of Progress: Regressing Mental Status Exam Level of Alertness: alert Appearance: appears stated age, clean, dressed appropriately, and healthy Eye Contact: normal Build/Stature: normal weight and normal height Attitude Toward Examiner: cooperative and pleasant Behavior: normal Speech: clear, coherent reciprocal, lively, normal, normal pitch, normal rate, normal rhythm, and normal volume Language: expressive normal and receptive normal Mood: anxious, irritable, and bereavement/mourning Affect: appropriate, broad, congruent, full, stable, and tearful at onset of session Thought Process: coherent, goal-directed, linear, logical, normal, [...] social judgment intact Reliability: very reliable Plan: Awaiting call from [facility] to schedule knee replacement surgery Challenge negative self-talk by reminding yourself that you are not a quitter and that you tried your best to adhere to treatment recommendations This visit was conducted (more content not included)... [facility] 03-02-2025 History of Present illness Narrative Images from the original note were not included. Patient presents for follow up for Epilepsy. Patient has not had any seizures since her last visit and stable on Dilantin and Clonazepam. Patient states that she is had a nerve block by pain management on 03/05/2025 but states that it didn't work. Patient states that she is having left sided knee pain and they are no longer getting injections and they are referring her for knee replacement. Patient also states that she is still having issues with sleep. Is only taking 150mg of the Trazodone. CHIEF COMPLAINT REASON FOR VISIT : HPI: Kristin Null is a 64 y.o. female who presents for CURRENT MEDICATIONS: ALLERGIES/DISCONTINUE MEDICATIONS Current Outpatient Medications [...] Orally mometasone (Nasonex) 50 MCG/ACT nasal spray 2 sprays, Each Nostril, Daily Multiple Vitamin (Multi Vitamin) tablet Every 12 [...] mg, Oral, Every 8 hours PRN traZODone (DESYREL) 200 mg, Oral, Nightly Turmeric (CURCUMIN 95 PO) Oral zinc gluconate [...] Cervical stenosis of spinal canal 05/21/2018 Depression ([facility]) Dizziness 08/08/2013 Epilepsy 09/16/2017 Fatigue 05/21/2018 Headache 11/19/2011 History of being hospitalized 08/2005 [facility] x5 days for double pneumonia Insomnia 07/14/2018 Lack of coordination 08/08/2013 Malaise and fatigue 02/15/2014 ADRIANA (obstructive sleep apnea) 05/21/2018 Paresthesias 05/21/2018 Radicular pain in left arm 05/21/2018 Right shoulder pain Seizure disorder (CMS/HCC) 06/07/2009 Sleep apnea 10/24/2015 Thyroid disease ([facility]) Vitamin D deficiency 01/25/2013 Past Surgical History: Procedure Laterality Date BACK SURGERY 1972, 1998 BIOPSY VAGINAL 2020 cyst CARPAL TUNNEL RELEASE Right 1984 CERVICAL DISC ARTHROPLASTY 10/28/2022 C3/4/5 Dr. Cruz CERVICAL FUSION 09/02/2022 C5-C6 - Dr. Cruz and 04/16 CHOLECYSTECTOMY CYST REMOVAL Right breast - 1989, 1990 KNEE SURGERY Left for meniscus and ACL tear OTHER SURGICAL HISTORY sialendoscopy PARATHYROIDECTOMY CT KNEE SCOPE,DIAGNOSTIC Bilateral CT LOBECTOMY TEMPOR CORTICOGRAPHY [address] NEUROPLASTY &/TRANSPOSITION ULNAR NERVE ELBOW 1989 ROTATOR CUFF REPAIR 2015 arthroscopic torn rotator cuff and bicep SHOULDER SURGERY Right shoulder impingement SPINAL FUSION 1972, 1998 TOTAL SHOULDER ARTHROPLASTY Right 03/2015 TRIGGER FINGER RELEASE Right 2013 TUBAL LIGATION 1991 TUMOR REMOVAL 1981 from foot Social History Tobacco Use Smoking status: Never Smokeless tobacco: Never Substance Use Topics Alcohol use: Never Comment: caffeine: 1-2 cups per day coffee, tea Drug use: Never Family History Problem Relation Name Age of Onset Heart disease Mother Mother Heart disease Father Father Cancer Sibling Other (suicide) Nephew Depression: Not at risk (08/04/2020) Received from [employer] PHQ-2 Total Score: 0 REVIEW OF SYMPTOMS: Review of Systems Const: Denies appetite change, [...] positive findings, which shall supersede the foregoing. OBJECTIVE: 09/23/2024 3:07 PM 07/05/2024 3:42 PM 06/15/2024 1:39 PM Vitals BMI 37.11 kg/m2 37.11 kg/m2 BSA (m2) 1.91 m2 1.91 m2 Systolic 168 130 Diastolic 89 80 Heart Rate 75 Height (in) 5' Weight (lb) 190 190 Visit Report Report Report EXAM: Neurological Exam GENERAL EXAMINATION Appearance: in no [...] in all four extremities, including at least station baggage porter, finger abductors, biceps, triceps, deltoid, toe flexors [...] no spasm of the trapezii or paraspinals. PROCEDURE: NONE ASSESSMENT AND PLAN: Diagnoses and all orders for this visit: Chronic insomnia - traZODone (Desyrel) 100 MG tablet; Take 3 tablets (300 mg) by mouth at bedtime Focal epilepsy (CMS/HCC) - gabapentin (Neurontin) 800 MG tablet; Take 1 tablet (800 mg) by mouth in the morning and 1 tablet (800 mg) at noon and 1 tablet (800 mg) in the evening and 1 tablet (800 mg) before bedtime. - Dilantin 100 MG capsule; TAKE 3 CAPSULES BY MOUTH AT BEDTIME Generalized seizure disorder (CMS/HCC) - Dilantin 30 MG capsule; Take 1 capsule (30 mg) by mouth Daily Total of 10 capsules per week. Seizure (CMS/HCC) - clonazePAM (KlonoPIN) 0.5 MG tablet; Take 1 tablet (0.5 mg) by mouth in the morning and 1 tablet (0.5 mg) in the evening and 1 tablet (0.5 mg) before bedtime. Patient is needing refill of Gabapentin, Dilantin 100mg and 30mg and Clonazepam, Trazodone 200mg. Send to [facility] in [place]. documented in this encounter [facility] 02-25-2025 Note Psych Progress Note Time In: 1143 Time Out: 1238 HPI Present at Visit: patient Location of Service: Patient Location: Home; Provider Location: Home Office Patient unable to connect to [employer] again and received a message that her browser was prehistoric. We did session via phone as a result Current Presenting Symptoms/Problems: Trauma: No trauma noted Depression =4/10; Anxiety = 4-5/10; Pain = 5-6/10 (right knee) Patient said that pain management physician (Carmella) told her that he will not administer any more injections to her because of the reaction she had and reportedly stated that she needs to have a knee replacement. Patient will discuss this with orthopedist during upcoming appointment. Patient said she also discussed with PT, and physical therapist recommended they try limited needling for some relief. Patient agreed and she said she did not experience any additional side effects besides the typical ones she experiences after this procedure and she said that she is having less intense pain. Patient said that another street cleaner she found through a friend agreed to clean her house and discussed what tasks they would do. Patient agreed to have them clean the house, but she has not been able to have them out yet due to having demands outside the home (e.g., medical appts). Patient said that she continues to do puzzles to distract. Individualized Service Plan (ISP): Treatment Plan Revision Date: 01/01/24 Review Date: 02/11/26 Concerns Referred/Deferred: Medical pain management Service Provider: [...] report a depression score <= 4/10 for 12 months Custom Objective: Patient will report an anxiety score <= 3/10 for 3 consecutive sessions Custom Objective: Patient will learn and utilize at least 2 nonpharmacological pain management strategies in 12 months Signed: Rosalba Gregorio, Ph.D. 02/11/2025 Progress Toward ISP Goals/Objectives: Depression < 4; Anxiety > 3 Therapeutic Interventions Provided: Assessed Mood, Assessed Thinking, Assessed Safety, Cognitive Behavioral Therapy, Psychoeducation, Supportive Psychotherapy, and Symptoms monitoring Reviewed symptoms and events since last session. Session focused on patient's continued knee pain, change in treatment plan, and processing her reactions to continued limitations on activity. Patient's frustration, irritability, and anxiety were discussed and she was provided with positive feedback on adherence to treatment recommendations. Patient expressed surprise and frustration that some providers have avoided giving her homework/exercises because she has a history of overdoing, and patient provided with observation that she has frequently done this in the past. Patient agreed and said she has learned her lesson and she was provided with psychoeducation on the development of trust via consistency. Patient open and receptive to discussion and she was provided with encouragement and support. Response [...] social judgment intact Reliability: very reliable Plan: Appt with orthopedic surgeon 03/08/25; ask about Syn[employer] Anniversary of father's is 03/08 Consider meeting with brother and [id number] at a later date for [facility] service evaluation 02/14/25 It was explained that t (more content not included)... [facility] 02-11-2025 Note Psych Progress Note Time In: 1037 Time Out: 1130 HPI Present at Visit: patient Location of Service: Patient Location: Home; Provider Location: Home Office Patient unable to connect to either [employer] nor [employer] and reportedly received a message that her browser was prehistoric. We did session via phone as a result Current Presenting Symptoms/Problems: Trauma: No trauma noted Depression =3-4/10; Anxiety = 5-6/10; Pain = 5-6/10 (right knee) Patient s received genicular nerve block in right knee on 02/04/25 and reported that the procedure was very painful and that she has had significant pain since the procedure. Patient phoned this provider earlier this week and was advised to contact physician's office that performed the procedure ([facility]) and patient did. She said smelter liner informed her that she could opt to not have the second injection or she could discuss having valium prescribed pre-procedure to assist with anxiety. Patient said that orthopedic surgeon had commented previously that if nerve block was ineffective, the next intervention would be ablation of genicular nerve, which he believed may successfully postpone knee replacement surgery for 12-18 months. Patient said that person cleaned the house and phoned patient the following week informing patient that she would not be able to clean patient's house because it was too big. Patient has found another street cleaner through a friend and evaluation is set up for 02/14/25. Patient said that she has been doing puzzles to distract. Individualized Service Plan (ISP): Treatment Plan Revision Date: 01/01/24 Review Date: 02/11/26 Concerns Referred/Deferred: Medical pain management Service Provider: [...] report a depression score <= 4/10 for 12 months Custom Objective: Patient will report an anxiety score <= 3/10 for 3 consecutive sessions Custom Objective: Patient will learn and utilize at least 2 nonpharmacological pain management strategies in 12 months Signed: Rosalba Gregorio, Ph.D. 02/11/2025 Progress Toward ISP Goals/Objectives: Depression < 4; Anxiety > 3 Therapeutic Interventions Provided: Assessed Mood, Assessed Thinking, Assessed Safety, Cognitive Behavioral Therapy, Psychoeducation, Supportive Psychotherapy, and Symptoms monitoring Reviewed symptoms and events since last session. Session focused on patient's reaction to pain management procedure and her dread of the second nerve block scheduled for 02/18/25. We explored patient's choices and patient was encouraged to contact surgeon's office to report reaction to first block and asking for advisement on whether she should get the second. Patient also encouraged to do her own cost-benefit analysis of having the procedure done again. We also explored other activities patient may be able to do to distract (besides puzzles), because she is worrying considerably. Reviewed ISP and patient in agreement with modification of distress objective as prior one was met. Patient open and receptive to discussion and she was provided with positive feedback, encouragement, and support. Response to Intervention: Agreeable Overall Assessment of Progress: Regressing Mental Status Exam Level of Alertness: alert [...] social judgment intact Reliability: very reliable Plan: Call orthopedic surgeon and report reaction to initial genicular nerve block and ask for (more content not included)... [facility] 01-21-2025 Note Psych Progress Note Time In: 1236 Time Out: 1332 HPI Present at Visit: patient Location of Service: Patient Location: Home; Provider Location: Home Office Current Presenting Symptoms/Problems: Trauma: No trauma noted Depression =2/10; Anxiety = 6/10; Pain = 4-5/10 (right knee, hip, low back) Patient said, Things have been torturous. She said that she will start exercises or treatments in physical therapy, but then she experiences more knee pain, and she is told to discontinue the new exercise/treatment. Patient said the pain escalated to the point that she was struggling sitting on the toilet at physical therapy, which reportedly prompted physical therapist to inform surgeon that patient needed an appointment with him immediately. Patient met with surgeon who decided to do X-ray of knee and informed patient that she has minimal cartilage in her knee and that it is bone on bone. Surgeon said he isreluctant to do surgery now and suggested that patient meet with pain management. Patient said she has been referred to Dr. Weir and that he will eventually administer injection in knee. Patient said that because her knee pain worsened, she has not been able to get out of the house much and visit with others. She is also having difficulty driving and has not been grocery shopping. Patient said she has been trying to rest and elevate her knee and that she has been trying to distract away from the pain by doing jigsaw puzzles (which she enjoys doing). Patient said that she thinks she has found a new cleaning lady and she will be coming for first visit on 01/25/25. Individualized Service Plan (ISP): Treatment Plan Revision [...] Ph.D. 01/01/2024 Progress Toward ISP Goals/Objectives: Depression < 4; Anxiety > 3; patient pacing activities to manage knee pain Therapeutic Interventions Provided: Assessed Mood, Assessed Thinking, Assessed Safety, Cognitive Behavioral Therapy, Psychoeducation, Supportive Psychotherapy, and Symptoms monitoring Reviewed symptoms and events since last session. Session focused on worsening knee pain and how patient is trying to cope and manage. Patient provided with positive feedback and support on use of distraction, and we explored ways she might be able to have phone contact with people. Patient open and receptive to discussion and [...] intact Reliability: very reliable Plan: Continue pacing physical activities and using distraction Cleaning lady begins 01/25 Patient awaiting appointment with pain management We will update ISP next session (focus of session was on worsening knee pain) This visit was conducted [id number] with the use of audio and video technology using [employer] and the patient was notified that using (more content not included)... [facility] 12-09-2024 Note Psych Progress Note Time In: 1100 Time Out: 1158 HPI Present at Visit: patient Location of Service: Patient Location: Home; Provider Location: Home Office Current Presenting Symptoms/Problems: Trauma: No trauma noted Depression =3/10; Anxiety = 4-5/10; Pain = 5/10 (right knee) Patient said that she continues to have considerable pain in her right knee and she has been instructed by physical therapist to desensitize herself to the knee pain by rubbing hrt knee. Patient had Neurology appointment and she discussed difficulty getting gabapentin prescription filled. She said that neurologist was surprised that orthopedic surgeon had not done X-ray of her knee and that he intended to reach out to orthopedic surgeon. Patient said that she has been following up with potential housecleaners. She said she continues to pace doing housework, but she sometimes overdoes it. She said her sleep has improved (getting 6.5-8 hours of briefly interrupted sleep). She is also trying to distract away from the knee pain by doing a jigsaw puzzle or cleaning out her file cabinet. Individualized Service Plan (ISP): Treatment Plan Revision [...] Ph.D. 01/01/2024 Progress Toward ISP Goals/Objectives: Depression < 4; Anxiety > 3; patient pacing activities to manage knee pain Therapeutic Interventions Provided: Assessed Mood, Assessed Thinking, Assessed Safety, Cognitive Behavioral Therapy, Psychoeducation, Supportive Psychotherapy, and Symptoms monitoring Reviewed symptoms and events since last session. Patient given time to review continued knee pain and the reported disagreement between neurologist and orthopedic surgeon. We discussed how patient can try to manage this. Patient given positive feedback and support on using distraction and pacing to manage knee pain. Patient also given time to continue processing brother's continued cognitive decline. Patient open and receptive to discussion and [...] intact Reliability: very reliable Plan: Continue pacing physical activities Patient awaiting contact from orthopedic surgeon This visit was conducted [id number] with the use of audio and video technology using [employer] and the patient was notified that using 3rd constitution party telecommunication application ([employer]) is HIPAA compliant. It was explained that the limits of confidentiality that exist during in-person sessions also apply for telepsychology sessions (i.e., where the patient indicates that he or she intends to harm self or others, the patient reports current child or elder abuse, or the patient is involved in a court case and records are subpoenad). The potential benefits and risks of video-conferencing that differ from in-person sessions was explained includin) nob (more content not included)... [facility] 12-02-2024 History of Present illness Narrative Images from the original note were not included. CHIEF COMPLAINT REASON FOR VISIT : She has been having knee pain on the right HPI: Kristin Null is a 64 y.o. female who presents for Her neck has been stable and she is in PT for her right knee. She has done dry needling. CURRENT MEDICATIONS: ALLERGIES/DISCONTINUE MEDICATIONS Current Outpatient Medications [...] Orally mometasone (Nasonex) 50 MCG/ACT nasal spray 2 sprays, Each Nostril, Daily Multiple Vitamin (Multi Vitamin) tablet Every 12 [...] mg, Oral, Every 8 hours PRN traZODone (DESYREL) 200 mg, Oral, Nightly Turmeric (CURCUMIN 95 PO) Oral zinc gluconate [...] Cervical stenosis of spinal canal 05/21/2018 Depression ([facility]) Dizziness 08/08/2013 Epilepsy ([facility]) 09/16/2017 Fatigue 05/21/2018 Headache 11/19/2011 History of being hospitalized 08/2005 [facility] x5 days for double pneumonia Insomnia 07/14/2018 Lack of coordination 08/08/2013 Malaise and fatigue 02/15/2014 ADRIANA (obstructive sleep apnea) 05/21/2018 Paresthesias 05/21/2018 Radicular pain in left arm 05/21/2018 Right shoulder pain Seizure disorder ([facility]/HCC) 06/07/2009 Sleep apnea 10/24/2015 Thyroid disease ([facility]) Vitamin D deficiency 01/25/2013 Past Surgical History: Procedure Laterality Date BACK SURGERY 1972, 1998 BIOPSY VAGINAL 2020 cyst CARPAL TUNNEL RELEASE Right 1985 CERVICAL DISC ARTHROPLASTY 10/28/2022 C3/4/5 Dr. Cruz CERVICAL FUSION 09/02/2022 C5-C6 - Dr. Cruz and 04/16 CHOLECYSTECTOMY CYST REMOVAL Right breast - 1989, 1990 KNEE SURGERY Left for meniscus and ACL tear OTHER SURGICAL HISTORY sialendoscopy PARATHYROIDECTOMY CT KNEE SCOPE,DIAGNOSTIC Bilateral CT LOBECTOMY TEMPOR CORTICOGRAPHY [address] NEUROPLASTY &/TRANSPOSITION ULNAR NERVE ELBOW 1989 ROTATOR CUFF REPAIR 2015 arthroscopic torn rotator cuff and bicep SHOULDER SURGERY Right shoulder impingement SPINAL FUSION 1972, 1998 TOTAL SHOULDER ARTHROPLASTY Right 03/2015 TRIGGER FINGER RELEASE Right 2013 TUBAL LIGATION 1991 TUMOR REMOVAL 1981 from foot Social History Tobacco Use Smoking status: Never Smokeless tobacco: Never Substance Use Topics Alcohol use: Never Comment: caffeine: 1-2 cups per day coffee, tea Drug use: Never Family History Problem Relation Name Age of Onset Heart disease Mother Mother Heart disease Father Father Cancer Sibling Other (suicide) Nephew Depression: Not at risk (08/04/2020) Received from [employer], [employer] PHQ-2 Total Score: 0 REVIEW OF SYMPTOMS: Review of Systems Const: Denies appetite change, [...] positive findings, which shall supersede the foregoing. OBJECTIVE: 09/23/2024 3:07 PM 07/05/2024 3:42 PM 06/15/2024 1:39 PM Vitals BMI 37.11 kg/m2 37.11 kg/m2 BSA (m2) 1.91 m2 1.91 m2 Systolic 168 130 Diastolic 89 80 Heart Rate 75 Height (in) 5' Weight (lb) 190 190 Visit Report Report Report EXAM: Neurological Exam GENERAL EXAMINATION Appearance: in no [...] in all four extremities, including at least station baggage porter, finger abductors, biceps, triceps, deltoid, toe flexors [...] no spasm of the trapezii or paraspinals. PROCEDURE: NONE ASSESSMENT AND PLAN: Diagnoses and all orders for this visit: Cervical radiculopathy Complex partial seizure with impairment of consciousness (CMS/HCC) Obstructive sleep apnea syndrome: -The patient was counseled on the risks of stroke, Ml, and sudden with ADRIANA, along with the need for compliance with CPAP/BiPAP treatment. Seizure (CMS/HCC) - clonazePAM (KlonoPIN) 0.5 MG tablet; Take 1 tablet (0.5 mg) by mouth in the morning and 1 tablet (0.5 mg) in the evening and 1 tablet (0.5 mg) before bedtime. I will obtain an EEG to assess for seizure or epileptiform activity which may explain the patient episodes and symptoms. I counseled the patient on the possible side effects and interactions of medications. Temporal lobe epilepsy (CMS/HCC) documented in this encounter [facility] 11-19-2024 Note Psych Progress Note Time In: 1230 Time Out: 1328 HPI Present at Visit: patient Location of Service: Patient Location: Home; Provider Location: Home Office Current Presenting Symptoms/Problems: Trauma: No trauma noted Depression =4-5/10; Anxiety = 5/10; Pain = 6/10 (right knee) Patient said that she continues to have considerable pain in her right knee. She had appointment with orthopedic surgeon who reportedly moved leg and commented that he does not feel any structural problems and saw no need to order X-ray. Patient said that he told her that she pulled her hamstring and that he believed that was the cause of the knee pain and he ordered PT 2X/week. Patient said she received PT 11/16 and 11/18. She said she received dry needling during the first session (she has had this treatment modality before); she said she could hardly walk for the second PT appointment. She said physical therapist expressed concern about her knee and reportedly commented that patient was demonstrating bursitis. Further, patient said therapist said that she believed that there wasconsiderable edema and opined that patient may have tear. She said she was going to send surgeon note expressing concern about status of patient's knee. Patient said that she has not yet heard from surgeon. Patient spent Aryan and New Year's with brother and [id number]. She said that her brother's cognitive functioning continues to decline, but patient is simply spending time with him and trying to be wherever he is talking about. Patient confronted her niece about her avoidance of her father and challenged niece's comment that she could not handle spending time with her father due to his cognitive decline. Patient urged her niece to spend time with her father because she would likely regret not doing so after he passed. Individualized Service Plan (ISP): Treatment Plan Revision [...] Ph.D. 01/01/2024 Progress Toward ISP Goals/Objectives: Depression > 4; Anxiety > 3; patient pacing activities to manage knee pain Therapeutic Interventions Provided: Assessed Mood, Assessed Thinking, Assessed Safety, Cognitive Behavioral Therapy, Psychoeducation, Supportive Psychotherapy, and Symptoms monitoring Reviewed symptoms and events since last session. Patient given time to review continued knee pain from fall in 09/02, recent evaluation by orthopedic surgeon, referral to PT, and worsening of condition. We processed her frustration and explored ways she may be able to redirect her thoughts to something within her control. Patient also given time to review holidays and we processed her reaction to her brother's worsening dementia. Patient given time to discuss her advice to her niece which led to discussion of patient's mourning the loss of her own parents. Patient also initiated discussion of the cost of her medication (hadn't met deductible) and she was provided with information on [employer] deductibles and that she should not expect the cost of her medication to always be that high. Patient open and receptive to discussion. Response to Intervention: Agreeable Overall Assessment of [...] to time Attention and Concentration: able to approp (more content not included)... [facility] 10-22-2024 Note Psych Progress Note Time In: 1135 Time Out: 1229 HPI Present at Visit: patient Location of Service: Patient Location: Home; Provider Location: Home Office Current Presenting Symptoms/Problems: Trauma: No trauma noted Depression =2-3/10; Anxiety = 4/10; Pain = 4-5/10 (right knee) Patient said that she continues to have considerable pain in her right knee and is having difficulty bearing weight on it. PCP reportedly wanted to order X-ray, but patient declined stating she had an orthopedic appointment mid-November and that orthopedic surgeon always had a particular way he wanted X-rays done. Patient said she did phone surgeon's office and was able to get sooner appointment (11/12/24). Patient said that she has been singing in the choir, but sometimes she cannot reach the high notes and she is changed to the alto section. As a result, she sings different notes for harmony and she said she is getting confused. Patient is experiencing some mourning this holiday season as she is spending more time thinking about her mother. Individualized Service Plan (ISP): Treatment Plan Revision [...] session. Patient given time to review continued knee pain from fall in 09/02. She was provided with encouragement and support on decision to request sooner appointment with orthopedic surgeon. Patient also given time to review issues with extended family and holiday plans with in-laws. We also processed mourning she is experiencing during this holiday season. Patient also initiated discussion of limiting food choices because she has annual bloodwork due and she is trying to lose weight. Patient provided with psychoeducation on the importance of getting balanced diet within the context of her comment that she is feeling very fatigued after singing in the choir. Patient agreed to try to consume some more fat and protein. Patient provided with encouragement and support. Response [...] Reliability: very reliable Plan: Pace physical activities Orthopedic surgeon appt 11/12/24 Patient spending with Patricia This visit was conducted [id number] with the use of audio and video technology using [employer] and the patient was notified that using 3rd [employer] party telecommunication application ([employer]) is HIPAA compliant. It was explained that the limits of confidentiality that exist during in-person sessions also apply for telepsychology sessions (i.e., where the patient indicates that he or she intends to harm self or others, the megha (more content not included)... [facility] 09-23-2024 History of Present illness Narrative Images [...] Cervical stenosis of spinal canal 05/21/2018 Depression ([facility]) Dizziness 08/08/2013 Epilepsy ([facility]) 09/16/2017 Fatigue 05/21/2018 Headache 11/19/2011 History of being hospitalized 08/2005 [facility] x5 days for double pneumonia Insomnia 07/14/2018 Lack of coordination 08/08/2013 Malaise and fatigue 02/15/2014 ADRIANA (obstructive sleep apnea) 05/21/2018 Paresthesias 05/21/2018 Radicular pain in left arm 05/21/2018 Right shoulder pain Seizure disorder ([facility]) 06/07/2009 Sleep apnea 10/24/2015 Thyroid disease ([facility]) Vitamin D deficiency 01/25/2013 Past Surgical History: Procedure Laterality Date BACK SURGERY 1972, 1998 BIOPSY VAGINAL 2020 cyst CARPAL TUNNEL RELEASE Right 1984 CERVICAL DISC ARTHROPLASTY 10/28/2022 C3/4/5 Dr. Cruz CERVICAL FUSION 09/02/2022 C5-C6 - Dr. Cruz and 04/16 CHOLECYSTECTOMY CYST REMOVAL Right breast - 1989, 1990 KNEE SURGERY Left for meniscus and ACL tear OTHER SURGICAL HISTORY sialendoscopy PARATHYROIDECTOMY CT KNEE SCOPE,DIAGNOSTIC Bilateral CT LOBECTOMY TEMPOR CORTICOGRAPHY [address] NEUROPLASTY &/TRANSPOSITION ULNAR NERVE ELBOW 1989 ROTATOR CUFF REPAIR 2015 arthroscopic torn rotator cuff and bicep SHOULDER SURGERY Right shoulder impingement SPINAL FUSION 1972, 1998 TOTAL SHOULDER ARTHROPLASTY Right 03/2015 TRIGGER FINGER RELEASE Right 2013 TUBAL LIGATION 1991 TUMOR REMOVAL 1981 from foot Social History Tobacco Use Smoking status: Never Smokeless tobacco: Never Substance Use Topics Alcohol use: Never Comment: caffeine: 1-2 cups per day coffee, tea Drug use: Never Family History Problem Relation Name Age of Onset Heart disease Mother Mother Heart disease Father Father Cancer Sibling Other (suicide) Nephew Depression: Not at risk (08/04/2020) Received from [employer], [employer] PHQ-2 Total Score: 0 REVIEW OF SYMPTOMS: [...] reflexes: Roberto's absent. Ankle clonus absent. Coordination [id number], rapid alternating movements and [id number] normal bilaterally without dysmetria. Gait Normal casual, [...] 18 g; Refill: 11 3. Focal epilepsy ([facility]) - gabapentin (Neurontin) 800 MG tablet; Take [...] if needed. documented in this encounter [facility] 09-17-2024 Note Psych Progress Note Time [...] Patient said she has contacted both the licensed insurance sales agent as well as the individual handling the medical payments of the change. Patient returned to [employer] and she is enjoying it. Patient said [...] also initiated positive reaction to returning to [employer] and she was provided with encouragement and [...] no homicidal guilherme (more content not included)... [facility] 09-17-2024 Telephone encounter Note Patient left voicemail requesting refill of Clondazepam be sent to [facility] in [place] please. [facility] 09-17-2024 Miscellaneous Notes Patient left voicemail requesting refill of Clondazepam be sent to [facility] in [place] please. documented in this encounter [facility] 08-20-2024 Note Psych Progress Note Time [...] because she had not found a new case management assistant. She is trying to take some breaks, but she is doing too much in one day. Patient said her spouse has been working a lot and that he has been doing 9-10 hour days for weeks. She said that he told her he would not be working this weekend. Patient said her brother from [place] is visiting because he wanted to determine [...] she is seriously contemplating singing in the [employer] choir for the holidays. She said that [...] Pace physical activities You can leave the constitution party early Try the choir. It is volunteer and if it isn't working for you, you can stop Pat (more content not included)... [facility] 07-30-2024 Note Psych Progress Note Time In: 1138 Time Out: 1233 HPI Present at Visit: patient Location of Service: Patient Location: Home; Provider Location: Home Office Current Presenting Symptoms/Problems: Trauma: No trauma noted Depression =3/10; Anxiety = 2/10; Pain = 3-4/10 (left side; both hands) Patient said that her stepson will not be moving to [place] and that he is still living with patient and spouse. Patient said he finally got a new job (working at [email or web address]). Patient said she fired the maid because [...] said her brother did well at the constitution party (he is in cognitive decline) and she believes some of her siblings are coming to terms with his decline. Patient said she and spouse went on vacation for 5 days at a B in [place], [place]. She said they really enjoyed themselves [...] issues involving her stepson, siblings, and terminating [employer] service. Patient also given time to discuss [...] sooner appt needed This visit was conducted [id number] with the use of audio and video technology using [employer]. and the pat (more content not included)... [facility] 07-05-2024 History of Present illness Narrative Images from the original note were not included. CHIEF COMPLAINT REASON FOR VISIT : Epilepsy follow up HPI: Kristin Null is a 63 y.o. female who presents for Epilepsy follow up. She is feeling some better. She is having dizzy spells and fatigue. She got new glasses and is noticing some change in frequency of dizzy spells. She is also having a allergy flare up. She is riding her bike. She rides about 8 miles a day. CURRENT MEDICATIONS: ALLERGIES/DISCONTINUE MEDICATIONS Current Outpatient Medications [...] CAPSULES BY MOUTH AT BEDTIME Dilantin 30 MG capsule TAKE 1 CAPSULE BY MOUTH ON FRIDAY, FRIDAY, FRIDAY AND FRIDAY escitalopram (LEXAPRO) 10 mg, Oral, Every morning [...] year. tiZANidine (ZANAFLEX) 4 mg, Oral, Daily traZODone (Desyrel) 50 MG tablet Take 3 [...] Cervical stenosis of spinal canal 05/21/2018 Depression ([facility]) Dizziness 08/08/2013 Epilepsy ([facility]) 09/16/2017 Fatigue 05/21/2018 Headache 11/19/2011 History of being hospitalized 08/2005 [facility] x5 days for double pneumonia Insomnia 07/14/2018 Lack of coordination 08/08/2013 Malaise and fatigue 02/15/2014 ADRIANA (obstructive sleep apnea) 05/21/2018 Paresthesias 05/21/2018 Radicular pain in left arm 05/21/2018 Right shoulder pain Seizure disorder ([facility]/HCC) 06/07/2009 Sleep apnea 10/24/2015 Thyroid disease ([facility]) Vitamin D deficiency 01/25/2013 Past Surgical History: Procedure Laterality Date BACK SURGERY 1972, 1998 BIOPSY VAGINAL 2020 cyst CARPAL TUNNEL RELEASE Right 1985 CERVICAL DISC ARTHROPLASTY 10/28/2022 C3/4/5 Dr. Cruz CERVICAL FUSION 09/02/2022 C5-C6 - Dr. Cruz and 04/16 CHOLECYSTECTOMY CYST REMOVAL Right breast - 1989, 1990 KNEE SURGERY Left for meniscus and ACL tear OTHER SURGICAL HISTORY sialendoscopy PARATHYROIDECTOMY CT KNEE SCOPE,DIAGNOSTIC Bilateral CT LOBECTOMY TEMPOR CORTICOGRAPHY [address] NEUROPLASTY &/TRANSPOSITION ULNAR NERVE ELBOW 1989 ROTATOR CUFF REPAIR 2014 arthroscopic torn rotator cuff and bicep SHOULDER SURGERY Right shoulder impingement SPINAL FUSION 1972, 1998 TOTAL SHOULDER ARTHROPLASTY Right 03/2015 TRIGGER FINGER RELEASE Right 2013 TUBAL LIGATION 1991 TUMOR REMOVAL 1981 from foot Social History Tobacco Use Smoking status: Never Smokeless tobacco: Never Substance Use Topics Alcohol use: Never Comment: caffeine: 1-2 cups per day coffee, tea Drug use: Never Family History Problem Relation Name Age of Onset Heart disease Mother Mother Heart disease Father Father Cancer Sibling Other (suicide) Nephew Depression: Not at risk (08/04/2020) Received from [employer], [employer] PHQ-2 Total Score: 0 REVIEW OF SYMPTOMS: [...] for agitation, confusion and suicidal ideas. OBJECTIVE: 06/15/2024 1:39 PM 12/25/2023 3:49 PM 07/31/2023 3:24 PM Vitals BMI 37.11 kg/m2 37.11 kg/m2 37.11 kg/m2 BSA (m2) 1.91 m2 1.91 m2 1.91 m2 Systolic 147 156 Diastolic 90 100 Heart Rate 91 Height (in) 5' Weight (lb) 190 190 190 Visit Report Report EXAM: Neurological ExamMental Status Awake, alert and oriented to person, [...] reflexes: Roberto's absent. Ankle clonus absent. Coordination Wpvwgk-mq-grzu, rapid alternating movements and yiys-kz-npvm normal bilaterally without dysmetria. Gait Normal casual, toe, heel and tandem gait. Romberg is absent. PROCEDURE: NONE ASSESSMENT AND PLAN: Diagnoses and all orders for this visit: Focal epilepsy ([facility]) - gabapentin (Neurontin) 800 MG tablet; Take 1 tablet (800 mg) by mouth in the morning and 1 tablet (800 mg) at noon and 1 tablet (800 mg) in the evening and 1 tablet (800 mg) before bedtime. - Dilantin 100 MG capsule; TAKE 3 CAPSULES BY MOUTH AT BEDTIME - cyanocobalamin (Vitamin B-12) injection 1,000 mcg Seizure disorder (CMS/HCC) - Dilantin 30 MG capsule; Take 1 capsule (30 mg) by mouth Daily Total of 10 capsules per week. - cyanocobalamin (Vitamin B-12) injection 1,000 mcg Acute carpal tunnel syndrome of right wrist Cervical radiculopathy: -Stay on Gabapentin for this -Pt trial if not better -Cervical injections as needed Complex partial seizure with impairment of consciousness (CMS/HCC): -I will obtain an EEG to assess for seizure or epileptiform activity which may explain the patient episodes and symptoms. -I counseled the patient on the possible side effects and interactions of medications. documented in this encounter [facility] 06-25-2024 Note Psych Progress Note Time In: 1230 Time Out: 1328 HPI Present at Visit: patient Location of Service: Patient Location: Home; Provider Location: Home Office Current Presenting Symptoms/Problems: Trauma: No trauma noted Depression =2-3/10; Anxiety = 3/10; Pain = 3-4/10 (left side; both hands) Patient said that her stepson has not yet moved to [place] (he did have going away constitution party), but she did not feel comfortable talking about it today because he was home. She denied having need to discuss it immediately and said it could wait. Patient said she returned to 911 emergency services dispatcher again, lenses were further adjusted to accommodate [...] gathering tomorrow to celebrate her brother and jyyrmx-qp-jyw's wedding anniversary. She said her boyjjn-yi-nth initiated this gathering because patient's brother's cognitive [...] sooner appt needed This visit was conducted [id number] with the use of audio and video technology using [employer] and the patient was notified that using 3rd constitution party [employer] application ([employer]) is HIPAA compliant (more content not included)... [facility] 06-25-2024 Telephone encounter Note Patient called stating her self pay diabetic shoes were to big once she picked them up 8/15 and tried them on at home. She said she just wants to return them. [facility] 06-25-2024 Miscellaneous Notes Patient called stating her self pay diabetic shoes were to big once she picked them up 8/15 and tried them on at home. She said she just wants to return them. documented in this encounter [facility] 05-28-2024 Note Psych Progress Note Time [...] smudged or dirty. Patient went back to guest services and learned that the numbers imprinted on the lenses were too refined. The lenses were redone and she said the headaches have remitted. Patient learned from potgtn-ye-axy that her antwon intends to move to [place] and live with his mother's cousin. Patient said that he had told patient and spouse that he intended to move to [place], but then there was not further discussion. Patient asked spouse if he knew his son intended to move to [place], and he said he only learned about it 2 days before she confronted him. Patient said she and spouse have plans to move and downsize, and she said her antwon will not be moving with them and she wants to make sure that antwon understands this because she suspects he will want to move back home shortly after moving down to [place] (patient used to be friends with the [...] able to comme (more content not included)... [facility] 05-03-2024 Note Psych Progress Note Time [...] care. Patient and spouse met with financial administrator again this past week and patient said [...] process her reaction to meeting with financial administrator and spouse's decision to remain working until [...] sooner appt needed This visit was conducted [id number]-[id number] with the use of audio and video technology using [employer] and the patient was notif (more content not included)... [facility] 04-15-2024 Note Psych Progress Note Time In: 1305 Time Out: 1400 HPI Present at Visit: patient Location of Service: Patient Location: Home; Provider Location: [facility] Office Current Presenting Symptoms/Problems: Trauma: No trauma noted Depression =2/10; Anxiety = 4/10; Pain = 3-4/10 (both hands) Patient was wiping her hands on a towel at the onset of the session, stating that physical therapist recommended she do this regularly to try to desensitize her hand. She completed electrical stimulation on 04/13/24. Patient said that her brother is currently in [place] for son's white coat ceremony and that he will begin chemotherapy when he returns. Patient said she spoke to her nephew and expressed her regret that she could not attend. Patient said she was able to successfully drive [facility] [place] and that she intends to continue making short driving trips. Patient said she and spouse went to financial administrator to discuss spouse's eventual halfway and she said she felt some relief [...] spouse this Summer This visit was conducted tgjs-ai-gabw with the use of audio and video technology using [employer] and the patient was notified that using 3rd constitution party telecommunication application ([employer]) is HIPAA compliant. It was explained that the limits of confidentiality that exist during in-person sessions also apply for telepsychology sessions (i.e., where the patient indicates that he or she intends to harm self or others, the patient reports current child or elder abuse, or the p (more content not included)... [facility] 12-25-2023 History of Present illness Narrative [...] Disp: , Rfl: beta carotene (Vitamin A) 70564 units capsule, Take 25,000 Units by mouth., [...] Cervical stenosis of spinal canal 05/21/2018 Depression ([facility]) Dizziness 08/08/2013 Epilepsy ([facility]) 09/16/2017 Fatigue 05/21/2018 Headache 11/19/2011 History of being hospitalized 08/2005 [facility] x5 days for double pneumonia Insomnia 07/14/2018 Lack of coordination 08/08/2013 Malaise and fatigue 02/15/2014 ADRIANA (obstructive sleep apnea) 05/21/2018 Paresthesias 05/21/2018 Radicular pain in left arm 05/21/2018 Right shoulder pain Seizure disorder ([facility]/HCC) 06/07/2009 Sleep apnea 10/24/2015 Thyroid disease ([facility]) Vitamin D deficiency 01/25/2013 Past Surgical History: Procedure Laterality Date BACK SURGERY 1972, 1998 BIOPSY VAGINAL 2020 cyst CARPAL TUNNEL RELEASE Right 1985 CERVICAL DISC ARTHROPLASTY 10/28/2022 C3/4/5 Dr. Cruz CERVICAL FUSION 09/02/2022 C5-C6 - Dr. Cruz and 04/16 CHOLECYSTECTOMY CYST REMOVAL Right breast - 1989, 1990 KNEE SURGERY Left for meniscus and ACL tear OTHER SURGICAL HISTORY sialendoscopy PARATHYROIDECTOMY CT KNEE SCOPE,DIAGNOSTIC Bilateral CT LOBECTOMY TEMPOR CORTICOGRAPHY [address] NEUROPLASTY &/TRANSPOSITION ULNAR NERVE ELBOW 1989 ROTATOR CUFF REPAIR 2015 arthroscopic torn rotator cuff and bicep SHOULDER SURGERY Right shoulder impingement SPINAL FUSION 1972, 1998 TOTAL SHOULDER ARTHROPLASTY Right 03/2015 TRIGGER FINGER RELEASE Right 2013 TUBAL LIGATION 1990 TUMOR REMOVAL 1981 from foot Family History [...] in all four extremities, including at least station baggage porter, finger abductors, biceps, triceps, deltoid, toe flexors [...] concerns today. documented in this encounter [facility] 11-06-2023 Hospital Discharge instructions Ashly Patterson [...] a strong odor. documented in this encounter [facility] 10-31-2023 History of Present illness Narrative DAY OF SURGERY/PROCEDURE GUIDELINES As a patient at the [facility], you can expect quality medical and nursing [...] if directed) Do not apply any lotions. Judsonia your teeth, but do not swallow any [...] and recovery. documented in this encounter [facility] 10-29-2022 History of Present illness Narrative Physical Therapy Facility/Department: [address] ORTHO/MED SURG Physical Therapy Initial Assessment [...] Ambulation Assistance: Independent Transfer Assistance: Independent Active Cluster Bore Operator: Yes Mode of Transportation: Car Occupation: On [...] - Dynamic: Fair OutComes Score AM-PAC Score AM-PAC Inpatient Mobility Raw Score : 20 (10/29/221138) [...] In 0815 Time Out 0845 Minutes 30 1 [facility] PT CLINICAL PHARMACY NOTE: MEDS TO BEDS Total # of Prescriptions Filled: 2 The following medications were delivered to the patient: Cephalexin gabapentin Additional Documentation: Images from the original note were not included. [facility] Office: [phone] Rakesh Vu DO, Norman Almeida DO, Feng [...] Caputo MD, Elmo Seth MD, Sonam Burrell, AUTOMOTIVE SERVICE MANAGEMENT TEACHER, Sabina Gottlieb, AUTOMOTIVE SERVICE MANAGEMENT TEACHER, Niocle Cody, AUTOMOTIVE SERVICE MANAGEMENT TEACHER, Tim Buckner, AUTOMOTIVE SERVICE MANAGEMENT TEACHER, Jennifer Zarate, KARINA, Kate Srivastava, AUTOMOTIVE SERVICE MANAGEMENT TEACHER, Sangeeta Martinez, AUTOMOTIVE SERVICE MANAGEMENT TEACHER, Shanita Mansfield, AUTOMOTIVE SERVICE MANAGEMENT TEACHER, Allie Jimenes, AUTOMOTIVE SERVICE MANAGEMENT TEACHER, Alyson Orona, AUTOMOTIVE SERVICE MANAGEMENT TEACHER, Vini Palumbo PA-C, Cynthia Church, SOAKER HELPER, Nenita Marion, AUTOMOTIVE SERVICE MANAGEMENT TEACHER, Anaid Mendiola, AUTOMOTIVE SERVICE MANAGEMENT TEACHER [facility] IN-PATIENT SERVICE [facility] Progress Note 10/29/2022 9:23 AM Name: Kristin Null Acct: [id number] Room: [address] [place] [address] Day: 1 Admit Date: 10/28/2022 5:56 AM [...] Nightly calcium carbonate 600 mg Oral BID WC cetirizine 10 mg Oral Daily traZODone 100 mg Oral Nightly phenytoin 30 mg Oral Once per day on Fri carvedilol 6.25 mg Oral BID WC glipiZIDE 5 mg Oral Daily pioglitazone 15 mg Oral Daily Vitamin D 6,000 Units Oral Daily busPIRone 10 mg Oral Daily fluticasone 1 spray Each Nostril Daily sodium chloride flush 10 mL IntraVENous 2 times per day insulin lispro 0-4 Units SubCUTAneous TID WC insulin lispro 0-4 Units SubCUTAneous Nightly gabapentin [...] C) Recent Labs 10/28/22 1036 10/28/22 1614 10/28/22215410/29/22 0621 POCGLU 154* 158* 136* 166* I/O (24Hr): Intake/Output Summary (Last 24 hours) at 10/29/2022 0923 Last data filed at 10/29/2022 0743 Gross per 24 hour Intake 1400 ml Output 2150 ml Net -750 ml Labs: Hematology:No results for input(s): WBC, RBC, HGB, HCT, MCV, MCH, MCHC, RDW, PLT, MPV, SEDRATE, CRP, INR, DDIMER, TQ6AKJPN, LABABSO in the last 72 hours. Invalid input(s): PT Chemistry: Recent Labs 10/28/22 1250 10/29/22 0511 NA -- 138 K -- 3.9 CL -- 99 CO2 -- 29 GLUCOSE -- 167* BUN -- 13 CREATININE 0.59 0.67 ANIONGAP -- 10 LABGLOM >60 >60 CALCIUM -- 9.2 Recent Labs 10/28/22 0711 10/28/22 1036 10/28/22 1614 10/28/22 21510/29/22 0621 POCGLU 122* 154* 158* 136* 166* ABG:No results found for: POCPH, PHART, PH, POCPCO2, RJN2PPP, PCO2, POCPO2, PO2ART, PO2, POCHCO3, ZZS4XFO, HCO3, NBEA, PBEA, BEART, BE, THGBART, THB, GJW4LQM, IKSB5VHK, P5LELGOD, O2SAT, FIO2 No results found for: SPECIAL [...] mellitus, without long-term current use of insulin ([facility]) 10/28/2022 Yes Seizure disorder ([facility]) 10/28/2022 Yes ADRIANA treated with BiPAP 10/28/2022 [...] Reid Mcgregor D.O. Orthopedic Surgery Resident, PGY-1 [place], [place] PGY-3 Addendum Patient seen and examined. [...] Co-pay $6.61 yoo. documented in this encounter [facility] [employer] Phone: 10-28-2022 Hospital Discharge instructions Deloris Chong [...] his office 10-14 days after surgery. Call [phone] to schedule/confirm or with any questions/concerns. The following attachments cannot be sent through Care Everywhere.cephalexin (Hungarian)acetaminophen and oxycodone (Hungarian)documented in this encounter [facility] [employer] Work Phone: 09-04-2022 History of Present illness Narrative Images from the original note were not included. [facility] Office: [phone] Rakesh Vu DO, Norman Almeida DO, Feng [...] Tim Buckner CNP, Jennifer Zarate, KARINA, Kate Srivastava, CHEVY, Sangeeta Martinez CNP, Shanita Mansfield CNP, Allie Jimenes CNP, Alyson Orona CNP, Vini Palumbo PA-C, Cynthia Church, DILLAN, Marianna Gimenez, KARINA, Nenita Marion, CHEVY, Jazzy Bejarano, CHEVY, Anaid Mendiola, CHEVY [facility] IN-PATIENT SERVICE [facility] Progress Note 09/04/2022 12:32 PM Name: Kristin Null Acct: [id number] Room: [address] [place] [address] Day: 0 Admit Date: 09/02/2022 6:56 AM [...] F (37.2 C) Recent Labs 09/03/22 1553 09/03/22 1956 09/04/22 0639 09/04/22 1111 POCGLU 189* 163* 127* [...] Labs 09/03/22 0652 09/03/22 1105 09/03/22 1553 09/03/22 1956 09/04/22 0639 09/04/22 1111 POCGLU 140* 122* 189* 163* 127* 163* ABG:No results found for: POCPH, PHART, PH, POCPCO2, RUE7YSY, PCO2, POCPO2, PO2ART, PO2, POCHCO3, QNA6VCG, HCO3, NBEA, PBEA, BEART, BE, THGBART, THB, EBY9KDG, UKKS3WMR, D2YPYDFW, O2SAT, FIO2 No results found for: SPECIAL [...] of insulin (HCC) 09/02/2022 Yes Seizure disorder (HCC) 09/02/2022 Yes Current chronic use of systemic steroids 09/02/2022 Yes Acute respiratory failure with hypoxia (HCC) 09/03/2022 Yes ADRIANA treated with BiPAP 09/03/2022 [...] LUCIA DAS 10:44 AM Occupational Therapy Facility/Department: [address] ORTHO/MED SURG Occupational Therapy Daily Treatment [...] open all containers demo 0 loss of station baggage porter Grooming: Stand by assistance;Setup Grooming Skilled Clinical Factors: oral care, face washing and hand hygiene facilitated standing at sink with RW demo 0 LOB and 0 loss of station baggage porter LE Dressing: Stand by assistance;Setup;Verbal cueing LE [...] Comments: utilizing RW Cognition Overall Cognitive Status: WF Cognition Comment: Pt repeating questions throughout session noting epilepsy medication, makes me feel loopy Orientation Overall Orientation Status: Within Functional Limits Education Given To: Patient Education Provided: Role of Therapy;Transfer Training;ADL Adaptive Strategies;Precautions Education Provided Comments: proper hand and foot placement; balance maintaince; walker management; c-collar precautions-F carry over Education Method: Demonstration;Verbal Education Outcome: Continued education needed AM-PAC Score AM-PAC Inpatient Daily Activity Raw Score: 19 (09/04/22943) AM-PAC Inpatient ADL T-Scale Score : 40.22 (09/04/22943) ADL Inpatient CMS 0-100% Score: 42.8 (09/04/22943) ADL Inpatient CMS G-Code Modifier : CK (09/04/22943) Goals Short [...] 39 Timed Code Treatment Minutes: 39 Minutes ALEAH Ho/Claire Patient refused neurontin 800mg at bed time. She said that she takes it at home as 1600mg at bed time. Informed ortho service about it but still waiting for final order. Will continue monitoring patient. 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 Pt agreeable to OT chanel. Pt reports 6/10 pain in upper neck Social/Functional History Social/Functional [...] Walker, rolling, Cane, Sock aid, Long-handled shoehorn, Ceo [place], Grab bars Has the patient had two or more falls in the past year or any fall with injury in the past year?: No Receives Help From: Family ADL Assistance: Independent Homemaking Assistance: Independent Homemaking Responsibilities: Yes Ambulation Assistance: Independent Transfer Assistance: Independent Active Cluster Bore Operator: Yes Mode of Transportation: [facility] Occupation: On disability Type of Occupation: disabled Leisure & Hobbies: Likes biking Additional Comments: Pt reports no support at home. 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 Objective Safety Devices Type of Devices: Left [...] Within functional limits Cognition Overall Cognitive Status: WF Cognition Comment: Pt hyperverbal throughout session Orientation Overall Orientation Status: Within Functional Limits Education Given To: Patient;Family Education Provided: Role of Therapy;Plan of Care;ADL Adaptive Strategies;Transfer Training;Precautions Education Method: Verbal Education Outcome: Verbalized understanding AM-PAC Score [facility] In[facility] Daily Activity Raw Score: 17 (09/03/22 144) [facility] Inpatient ADL T-Scale Score : 37.26 (09/03/22 144) ADL Inpatient CMS 0-100% Score: 50.11 (09/03/22 144) ADL Inpatient [facility] G-Code Modifier : CK (09/03/221443) Goals Short Term Goals Time Frame for [...] from the original note were not included. [facility] Office: [phone] Rakesh Vu DO, Norman Almeida DO, Feng [...] Caputo MD, Elmo Seth MD, Sonam Burrell, AUTOMOTIVE SERVICE MANAGEMENT TEACHER, Sabina Gottlieb, AUTOMOTIVE SERVICE MANAGEMENT TEACHER, Nicole Cody, AUTOMOTIVE SERVICE MANAGEMENT TEACHER, Tim Buckner, AUTOMOTIVE SERVICE MANAGEMENT TEACHER, Jennifer Zarate, DNP, Kate Srivastava, AUTOMOTIVE SERVICE MANAGEMENT TEACHER, Sangeeta Martinez, AUTOMOTIVE SERVICE MANAGEMENT TEACHER, Shanita Mansfield, AUTOMOTIVE SERVICE MANAGEMENT TEACHER, Allie Jimenes, AUTOMOTIVE SERVICE MANAGEMENT TEACHER, Alyson Orona, AUTOMOTIVE SERVICE MANAGEMENT TEACHER, Vini Palumbo PA-C, Cynthia Church, SOAKER HELPER, Marianna Gimenez, DNP, Nenita Marion, AUTOMOTIVE SERVICE MANAGEMENT TEACHER, Jazzy Bejarano, AUTOMOTIVE SERVICE MANAGEMENT TEACHER, Anaid Mendiola, AUTOMOTIVE SERVICE MANAGEMENT TEACHER [facility] IN-PATIENT SERVICE [facility] Progress Note 09/03/2022 2:46 PM Name: Kristin Null Acct: [id number] Room: 0236/0236-01 Day: 0 Admit Date: 09/02/2022 6:56 AM [...] C), Max:98.3 F (36.8 C) Recent Labs 09/02/22214509/03/2252 09/03/22 1105 POCGLU 132* 140* 122* I/O [...] in the last 72 hours. Recent Labs 09/02/22214509/03/2265109/03/22 1105 POCGLU 132* 140* 122* ABG:No results found for: POCPH, PHART, PH, POCPCO2, EWD9TWD, PCO2, POCPO2, PO2ART, PO2, POCHCO3, KYH7FEQ, HCO3, NBEA, PBEA, BEART, BE, THGBART, THB, YRN2YEY, AWPJ4DUM, H1VSZTTV, O2SAT, FIO2 No results found for: SPECIAL [...] mellitus, without long-term current use of insulin ([facility]) 09/02/2022 Yes Seizure disorder ([facility]) 09/02/2022 Yes Current chronic use of systemic steroids 09/02/2022 Yes Acute respiratory failure with hypoxia ([facility]) 09/03/2022 Yes ADRIANA treated with BiPAP 09/03/2022 [...] at time of delivery. Physical Therapy Facility/Department: [address] ORTHO/MED SURG Physical Therapy Initial Assessment [...] arthroscopy (Right, 2009); Finger trigger release (Right, 2014); Shoulder arthroscopy (2014); Parotidectomy (Left, 08/07/2020); Colonoscopy; [...] Ambulation Assistance: Independent Transfer Assistance: Independent Active Cluster Bore Operator: Yes Mode of Transportation: [facility] Occupation: On disability Leisure & Hobbies: Likes [...] - Dynamic: Fair OutComes Score AM-PAC Score AM-PAC Inpatient Mobility Raw Score : 24 (09/03/22 114) AM-PAC Inpatient T-Scale Score : 61.14 (09/03/22 114) Mobility Inpatient CMS 0-100% Score: 0 (09/03/221142) Mobility Inpatient CMS G-Code Modifier : CH (09/03/221142) Tinneti Score Goals Short Term Goals Time [...] days from surgery - Please page Ortho search optimization analyst with any questions Theresa Carvajal DO Orthopedic Surgery Resident, PGY-1 [place], [place] PGY-3 Addendum Patient seen and examined. Agree with Dr. Carvajal's history, physical examination, assessment and plan except where changes were made above (may be highlighted by [employer]'s author selection feature). Patient has median nerve [...] ortho resident. Will continue monitoring patient. Updated PHARMACY TECHNICIAN INSTRUCTOR on repeat blood pressure of 157/90. Still waiting for dilantin 30mg at bed time coverage for Friday. Will continue to monitor patient. Patient took her own dose of neurontin, clonazepam and dilantin. Told her that still waiting for an order but refused to do so. Referred to PHARMACY TECHNICIAN INSTRUCTOR around 22:40 patient's blood pressure of 177/89. Still waiting for response. Will continue monitoring patient. Neuro clearance received for procedure scheduled 09/02/2022 documented in this encounter [facility] [employer] Phone: 09-02-2022 Hospital Discharge instructions Theresa Carvajal [...] his office 10-14 days after surgery. Call [phone] to schedule/confirm or with any questions/concerns. documented in this encounter [facility] [employer] Phone: 08-28-2022 History of Present illness Narrative [...] knees, hip, back, fingers Chronic back pain 1973 COVID-19 08/2021 admitted x 5 day; bilateral pneumonia COVID-19 vaccination not done Diabetes mellitus (HCC) Epilepsy (HCC) 1984 Dr. Enrico Burgos Neurologist Tano Burrell. Has not had a seizure in at least 5 years Gall stones 2006 History of blood transfusion 1972 during spinal fusion surgery. no problems Numbness around mouth left side, chronic, states had mri brain, and following with neuro closely ADRIANA (obstructive sleep apnea) 2006 BiPap machine. Managed by Dr. Burgos Neurologist Tano Oliveira PONV (postoperative nausea and vomiting) Seasonal allergies Shoulder pain Wellness examination 01/24/2021 PCP Daniel Russell [place]; last visit March 2022 Patient was evaluated [...] at 12:45 PM documented in this encounter [employer] Phone: 08-27-2022 Hospital Discharge instructions TIFFANIE Menendez CNP - 08/27/2022 4:01 PM EDT Pre-operative Instructions [...] Dong quai (female ginseng), Fish oil, Garlic, Sraah,Ginkgo biloba, Grape seed extract, Turmeric, Vitamin E, etc....) You may continue the rest of your medications through the night before surgery unless instructed otherwise. If applicable: Do not take diabetic medications on the day of surgery. Please use/bring daily inhalers with you 08/28/22 10:52 AM Signature (Provider) Signature (Patient) Day of Surgery/Procedure As a patient at [facility] you can expect quality medical and nursing care that is centered on your individual needs. Our goal is to make your surgical experience as comfortable as possible Directions to the Surgery Center The surgery Center at [facility] is located in the Emergency Room parking lot on [address] or there is additional parking across the street. The address is [address] [address]. Please check in at the Surgery Center [...] on the day of surgery please contact [phone] or [phone] If you have any other questions regarding your procedure/surgery please call your surgeon's office. documented in this encounter [employer] Phone: 06-17-2022 Hospital Discharge instructions Shanon Crawford DO - 06/17/2022 8:24 PM EDT You have yeast infection. Please use your prescriptions will be as prescribed. Please follow-up with WIRE DRAWING MACHINE OPERATOR clinic. Please return the emergency room if you develop any worsening symptoms, abdominal pain, fevers, any other concerning symptoms. documented in this encounter [employer] Phone: 03-30-2022 Note Chief Complaint consultation for sebaceous cyst HPI Staff 61 year old female presents on consultation from Dr. Pearson for sebaceous cyst left arm. History of Present Illness 61 yo female with h/o htn, hyperlipidemia, seizure d/o, ADRIANA, anxiety/depression; referred for possible cyst left forearm; patient reports 1 month h/o painful, swollen lump on right forearm; occurred when she was in [place], got a bug bite; area was swollen [...] 1 tab(s), Oral, Daily Nasonex 50 mcg/inh [place], 1 spray(s), Nasal, BID, PRN traZODONE 50 [...] Osteoporosis: Mother. Ovarian cancer: Mother. Seizure: Brother. [facility] Comment on above: Result Comment: Elec tronically Signed By: GLADYS NAZARIO, Luz R\.br\Date and Time Signed: 03/30/22 11:25 EDT 03-21-2022 Note PROCEDURE: XR FOOT R T MIN 3 VIEWS COMPARISON: None. HISTORY: Pain in right foot FINDINGS: BONES:No acute fracture or dislocation. Mild degenerative changes with marginal osteophyte formation SOFT TISSUES:Negative. No visible soft tissue swelling. EFFUSION:None visible. OTHER: Negative. IMPRESSION: Mild degenerative changes, no acute fracture Electronically authenticated by: ROCÍO REYES Date: 2022-03-21 07:27 [facility] Evaluation + Plan note No data available for this section General Surgery [place] Evaluation note No assessment inform ation available [facility] Work Phone: Evaluation note Diagnosis Yeast infection involving the vagina and surrounding area- Primary Candidiasis of vulva and vagina documented in this encounter [employer] Phone: evaluation note* Diagnosis S/P cervical spinal fusion- Primary Arthrodesis status Post-op pain Other acute postoperative pain Type 2 diabetes mellitus, without long-term current use of insulin ([facility]) Seizure disorder (HCC) Unspecified epilepsy without mention of intractable epilepsy Current chronic use of systemic steroids Acute respiratory failure with hypoxia (HCC) Acute respiratory failure ADRIANA treated with BiPAP Primary hypertension Unspecified essential hypertension Atelectasis Pulmonary collapse documented in this encounter [employer] Phone: evaluation note* Diagnosis Cervical stenosis of spinal canal- Primary Spinal stenosis in cervical region Cervical stenosis of spinal canal Spinal stenosis in cervical region S/P cervical spinal fusion Arthrodesis status ADRIANA treated with BiPAP Primary hypertension Unspecified essential hypertension Seizure disorder (HCC) Unspecified epilepsy without mention of intractable epilepsy Type 2 diabetes mellitus, without long-term current use of insulin ([facility]) Insomnia Insomnia, unspecified documented in this encounter [employer] Phone: evaluation note* Diagnosis Acute postoperative pain- Primary Other acute postoperative pain Acute carpal tunnel syndrome of right wrist documented in this encounter [facility]* Diagnosis Acute carpal tunnel syndrome of right wrist- Primary Seizure (CMS/HCC) Other convulsions Allodynia Disturbance of skin sensation Cervical radiculopathy Brachial neuritis or radiculitis nos Complex partial seizure with impairment of consciousness (CMS/HCC) Localization-related (focal) (partial) epilepsy and epileptic syndromes with complex partial seizures, without mention of intractable epilepsy [facility] Diagnosis Other nerve root and plexus disorders- Primary Chronic insomnia Insomnia, unspecified 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 Allergic rhinitis due to animal (cat) (dog) hair and dander Focal epilepsy (CMS/HCC) Trochanteric bursitis, right hip [facility] Diagnosis Focal epilepsy (CMS/HCC)- Primary Seizure disorder (CMS/HCC) Unspecified epilepsy without mention of intractable epilepsy Acute carpal tunnel syndrome of right wrist Cervical radiculopathy Brachial neuritis or radiculitis nos Complex partial seizure with impairment of consciousness (CMS/HCC) Localization-related (focal) (partial) epilepsy and epileptic syndromes with complex partial seizures, without mention of intractable epilepsy [facility] Diagnosis Cervical radiculopathy- Primary Brachial neuritis or radiculitis nos Complex partial seizure with impairment of consciousness (CMS/HCC) Localization-related (focal) (partial) epilepsy and epileptic syndromes with complex partial seizures, without mention of intractable epilepsy Obstructive sleep apnea syndrome Obstructive sleep apnea (adult) (pediatric) Seizure (CMS/HCC) Other convulsions Temporal lobe epilepsy (CMS/HCC) Localization-related (focal) (partial) epilepsy and epileptic syndromes with complex partial seizures, without mention of intractable epilepsy [facility] Diagnosis Chronic insomnia Insomnia, unspecified Focal epilepsy (CMS/HCC) Generalized seizure disorder (CMS/HCC) Unspecified epilepsy without mention of intractable epilepsy Seizure (CMS/HCC) Other convulsions [facility] No data available for this section General Surgery Daniel Assessments Diagnosis Preop testing- Primary Preoperative examination, unspecified Diagnosis Post-op pain- Primary Other acute postoperative pain Advance Directives No Advanced Directives Records FoundDocuments on File Type Date Recorded Patient Gis Analyst Developer Expl anation ACP-Advance Directive ACP-Advance Directive 01/29/2021 1:55 PM ACP-Power of Fastener Sewing Machine Operator ACP-Power of Fastener Sewing Machine Operator 01/29/2021 1:55 PM Documents on File Type Date Recorded Patient Gis Analyst Developer Expl anation ACP-Advance Directive ACP-Advance Directive 01/29/2021 1:55 PM ACP-Power of Fastener Sewing Machine Operator ACP-Power of Fastener Sewing Machine Operator 01/29/2021 1:55 PM Documents on File Type Date Recorded Patient Gis Analyst Developer Expl anation ACP-Advance Directive 01/29/2021 1:55 PM ACP-Power of Fastener Sewing Machine Operator 01/29/2021 1:55 PM Documents on File Type Date Recorded Patient Gis Analyst Developer Expl anation ACP-Advance Directive 01/29/2021 1:55 PM ACP-Power of Fastener Sewing Machine Operator 01/29/2021 1:55 PM Latest Code Status on [...] Records Found Discharge Instructions * Instructions* Olivia Rene, [place] - 02/12/2021 Orthopedic Instructions: -Weight bearing status: [...] their office 10-14 days after surgery. Call [phone] to schedule/confirm. No alcoholic beverages, no driving [...] section and content) DATE CREATED AUTHOR 02/10/2021 [facility] DATE CREATED AUTHOR AUTHOR'S ORGANIZ ATION 03/31/2022 [facility] DATE CREATED AUTHOR AUTHOR'S ORGANIZ ATION 04/13/2022 [facility] DATE CREATED AUTHOR AUTHOR'S ORGANIZ ATION 04/26/2022 [facility] Special[facility] DATE CREATED AUTHOR AUTHOR'S ORGANIZ ATION 04/26/2022 [facility] DATE CREATED AUTHOR AUTHOR'S ORGANIZ ATION 03/19/2023 [facility] DATE CREATED AUTHOR AUTHOR'S ORGANIZ ATION 02/12/2024 [facility] DATE CREATED AUTHOR AUTHOR'S ORGANIZ ATION 03/03/2025 [facility] EPIC DATE CREATED AUTHOR AUTHOR'S ORGANIZ ATION 04/12/2025 [facility] Reason for Visit (unrecogniz ed section and content) Status Reason Specialty Diagnoses / Procedures Referre d By Contact Referred To Contact Diagnoses Acute medial meniscal tear Lateral meniscus tear MEDIAL MENISCAL TEAR, LATERAL MENISCUS TEAR Procedures CT ARTHRS KNE SURG W/MENISCECTOMY MED/LAT W/SHVG CT ARTHRS KNEE W/MENISCECTOMY MED&LAT W/SHAVING KNEE ARTHROSCOPY WITH MENISCECTOMY right Endy Cruz MD [address] [place] [address] [facility] Reason Comments Groin Swelling Specialty Diagnoses / Procedures Referred By Contac t Referred To Contact Diagnoses 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) STENOSIS OF CERVICAL SPINE WITH MYELOPATHY Procedures CT OFFICE/OUTPT VISIT,PROCEDURE ONLY CT ARTHRODESIS ANT INTERBODY INC DISCECTOMY, CERVICAL BELOW C2 CT ARTHRODESIS ANT INTERBODY INC DISCECTOMY CERVICAL BELOW C2 EA ADDL CT INSJ BIOMCHN DEV INTERVERTEBRAL DSC SPC W/ARTHRD CT ALLOGRAFT FOR SPINE SURGERY ONLY MORSELIZED AUTOGRAFT SPINE SURGERY LOCAL FROM SAME INCISION ANTERIOR CERVICAL DISECTOMY FUSION C5,6 AND C6,7 WITH SSEP MONITORING ( GLOBUS)-EVOKES# LOVE, CONF#[id number] Endy Cruz MD [address] [place] [address] [facility] [employer] [address] [place] [address] Referral ID Status Reason Start Date Expiration Date Visits Re quested Visits Authorized [id number] 1 1 Specialty Diagnoses / Procedures Referred By Eric t Referred To Contact Diagnoses 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) Spondylosis CERVICAL STENOSIS WITH MYELOPATHY, SPONDYLOSIS Procedures CT TOTAL DISC ARTHROPLASTY, CERVICAL, SINGLE CT ARTHRODESIS ANT INTERBODY INC DISCECTOMY, CERVICAL BELOW C2 CT ARTHRODESIS ANT INTERBODY INC DISCECTOMY CERVICAL BELOW C2 EA ADDL CT INSJ BIOMCHN DEV INTERVERTEBRAL DSC SPC W/ARTHRD CT ALLOGRAFT FOR SPINE SURGERY ONLY MORSELIZED AUTOGRAFT SPINE SURGERY LOCAL FROM SAME INCISION CT TOTAL DISC ARTHROPLASTY, CERVICAL, SINGLE CT TOT DISC ARTHRP ANT APPR DISC 2ND LEVEL CERVICAL ANTERIOR CERVICAL DISC ARTHROPLASTY C3-4, C4-5 (KYLIE BIOMET MOBI-C, SUPINE) SHORT STAY Endy Cruz MD [address] [place] [address] [employer] [phone] [place] [phone] Referral ID Status Reason Start Date Expiration Date Visits Re quested Visits Authorized [id number] 1 1 Specialty Diagnoses / Procedures Referred By Eric t Referred To Contact Diagnoses Right carpal tunnel syndrome Right carpal tunnel syndrome [G56.01] Procedures CT NEUROPLASTY &/TRANSPOS MEDIAN NRV CARPAL TUNNE RIGHT CARPAL TUNNEL RELEASE Endy Cruz MD [address] [place] [address] [facility] [employer] [phone] [place] [phone] Referral ID Status Reason Start Date Expiration Date Visits Re quested Visits Authorized [id number] 1 1 Reason Onset Date Comments Advice Only 06/25/2024 Ordered Prescriptions (unrec ognized section and content) [...] 1 tablet 1 06/17/2022 06/17/2022 nystatin (MYCOSTATIN) [id number] UNIT/GM ointment Apply topically 2 times daily. [...] Dates Marito Villalobos MD Attending Provider Active Mule Spinner Relationship Specialty Start Date End Date Davie Hernandes PCP - General 07/20/12 Mule Spinner Relationship Specialty Start Date End Date Niki Pearson MD [address] [place] [address] PCP - General Family Medicine 08/28/22 Mule Spinner Relationship Specialty Start Date End Date Niki Pearson MD [address] [place] [address] PCP - General Family Medicine 08/28/22 Mule Spinner Relationship Specialty Start Date End Date Niki Pearson MD [address] [place] [address] PCP - General Family Medicine 08/28/22 Mule Spinner Relationship Specialty Start Date End Date Niki Pearson MD [address] [place] [address] PCP - General Family Medicine 08/28/22 Mule Spinner Relationship Specialty Start Date End Date Niki Pearson MD [address] [place] [address] PCP - General 02/23/25 Mule Spinner Relationship Specialty Start Date End Date Niki Pearson MD [address] [place] [address] PCP - General 02/23/25 Goals (unrecognized section and content) Goals may [...] RN) 0839 (Given - Provider: Jacqui Renteria, [place]) carvedilol (COREG) tablet 6.25 mg 6.25 mg, Oral, 2 TIMES DAILY WITH MEALS, First dose on Fri09/03/22 at 1700, Until Discontinued, Administer with food to minimize the risk of orthostatic hypotension 1649 (Given - Provider: Jacqui Renteria RN) 0839 (Given - Provider: Jacqui Renteria, RN)1700 (Due) ceFAZolin (ANCEF) 2000 mg in sterile water 20 mL IV syringe (COMPLETED) 2,000 mg, IntraVENous, ONCE, 1 dose, On Fri09/02/22 at 0745, Antimicrobial Indications: Surgical Prophylaxis, On way to or Administer over 5 mins., Pre-op (day of surgery) 0922 (Given - Provider: Theresa Bernal APRN - CLINICAL PROGRAM COORDINATOR) ceFAZolin (ANCEF) 2000 mg in sterile water 20 mL IV syringe (CANCELED) 2,000 mg, IntraVENous, EVERY 8 HOURS, 2 doses, First dose on Fri09/02/22 at 1700, Last dose on Fri09/03/22 at 0100, Antimicrobial Indications: Surgical Prophylaxis, Administer over 5 mins., Post-op 1648 (Given - Provider: Jacqui Renteria RN) clonazePAM (KLONOPIN) tablet 1.5 mg 1.5 mg, Oral, NIGHTLY, First dose on Fri09/03/22 at 0030, Until Discontinued 0020 (Not Given - Provider: Praneeth Currie RN - Reason: Other - Comment: Patient took home dose)210 (Not Given - Provider: Praneeth Currie RN - Reason: Patient/family refused)231 (Given - Provider: Praneeth Currie RN) 2100 (Due) dexamethasone (DECADRON) injection 2 mg (COMPLETED) 2 mg, IntraVENous, EVERY 8 HOURS, First dose on Fri09/02/22 at 1700, For 3 doses 164 (Given - Provider: Jacqui Renteria RN) 013 (Given - Provider: Praneeth Currie RN)0757 (Given - Provider: Manuel Kaplan, [place]) escitalopram (LEXAPRO) tablet 10 mg 10 mg, Oral, DAILY, First dose on Fri09/02/22 at 2030, Until Discontinued 225 (Not Given - Provider: Praneeth Currie RN - Reason: Patient/family refused) 0756 (Given - Provider: Manuel Kaplan, [place]) 0839 (Given - Provider: Jacqui Renteria RN) gabapentin (NEURONTIN) capsule 1,600 mg 1,600 [...] refused) 0759 (Given - Provider: Manuel Kaplan, [place])1400 (Not Given - Provider: Manuel Kaplan RN [...] 2252 (Given - Provider: Praneeth Currie RN) insulin lispro (HUMALOG) injection vial 0-4 Units 0-4 Units, SubCUTAneous, NIGHTLY, First dose on Fri09/02/22 at 2100, Until Discontinued, If continuous tube feedings/TPN/NPO, give correction dose based on result, no reduction in dose. If eating or bolus tube feeding: Corrective Bedtime Algorithm Glucose: Dose: 70-299 No Insulin 300-349 4 Units Over 349 4 Units and notify physician 215 (Not Given - Provider: Praneeth Currie RN - Reason: Order parameters not met - Comment: Blood sugar: 132) 2105 (Not Given - Provider: Praneeth Currie RN - Reason: Order parameters not met - Comment: Blood sugar: 163) 2100 (Due) insulin lispro (HUMALOG) injection vial 0-8 [...] 2154 (Given - Provider: Praneeth Currie RN) 2305 (Given - Provider: Praneeth Currie RN) 2099 (Due) phenytoin (DILANTIN) ER capsule 30 mg 30 mg, Oral, USER SPECIFIED (Once per day on Sun Fri), First dose on Fri09/04/22 at 1800, [...] Midline or Central Line = 20 mL/lumen 2156 (Not Given - Provider: Praneeth Currie RN - Reason: IV Fluid Infusing) 0757 (Given - Provider: Manuel Kaplan RN)2107 (Not Given - Provider: Praneeth Currie RN - Reason: IV Fluid Infusing) 0840 (Given - Provider: Jacqui Renteria RN)2100 (Due) traZODone (DESYREL) tablet 100 mg 100 mg, Oral, NIGHTLY, First dose on Fri09/02/22 at 2100, Until Discontinued 2345 (Given - Provider: Praneeth Currie RN) 210 (Not Given - Provider: Praneeth Currie RN [...] Provider: Jacqui Renteria RN) bupivacaine-EPINEPHrine (MARCAINE-w/EPINEPHRINE) 0.25% -[id number] injection (CANCELED) PRN, Starting on Fri09/02/22 at [...] administration of glucagon, Starting on Fri09/02/22 at 2010, If blood glucose fails to stabilize after [...] ALERT or NPO, Starting on Fri09/02/22 at 1956, Repeat blood glucose in 15 minutes. If [...] mg, IntraMUSCular, PRN, Starting on Fri09/02/22 at 1957, Until Discontinued, Low blood sugar, Blood glucose [...] tablet), Oral, PRN, Starting on Fri09/02/22 at 1957, Until Discontinued, Low blood sugar, If blood [...] (Given - Provider: Tia Benton - Comment: [id number] 02/2025) morphine (PF) injection 2 mg (COMPLETED) [...] Kayleigh Munguia RN)1215 (Given - Provider: Kayleigh Munguia RN)1226 (Given - Provider: Kayleigh Munguia, [place])1233 (Given - Provider: Kayleigh Munguia RN) ondansetron [...] Jacqui Renteria RN)2211 (Given - Provider: Praneeth Currie, RN) 0411 (Given - Provider: Praneeth Currie RN)0804 (Given - Provider: Manuel Kaplan, RN)1444 (Given - Provider: Jacqui Renteria RN)2302 (Given - Provider: Praneeth Currie RN) 0840 (Given - Provider: Jacqui Renteria RN) sodium chloride 0.9 % irrigation (CANCELED) [...] Muscle spasms 1255 (Given - Provider: Manuel Kaplan, [place]) Linked Groups Order Group 1: dextrose bolus [...] Until Discontinued 1314 (Given - Provider: Manuel Kaplan, [place]) 0907 (Given - Provider: Deloris Chong RN) calcium carbonate tablet 600 mg 600 mg, Oral, 2 TIMES DAILY WITH MEALS, First dose on Fri10/28/22 at 1200, Until Discontinued 1315 (Given - Provider: Manuel Kaplan, [place])1525 (Not Given - Provider: Manuel Kaplan RN [...] RN) 0907 (Given - Provider: Deloris Chong RN)1700 (Due) ceFAZolin (ANCEF) 2000 mg in sterile water 20 mL IV syringe (COMPLETED) 2,000 mg, IntraVENous, ONCE, 1 dose, On Fri10/28/22 at 0715, Antimicrobial Indications: Surgical Prophylaxis, Administer over 5 mins. 0749 (Given - Provider: Cm Serrano APRN - CLINICAL PROGRAM COORDINATOR) ceFAZolin (ANCEF) 2000 mg in sterile water [...] Manuel Kaplan RN - Reason: Patient/family refused) 09 (Given - Provider: Deloris Chong, [place]) clonazePAM (KLONOPIN) tablet 1.5 mg 1.5 mg, Oral, NIGHTLY, First dose on Fri10/28/22 at 2100, Until Discontinued 2213 (Given - Provider: Jacqui Renteria RN) 2100 (Due) dexamethasone (DECADRON) injection 4 mg (COMPLETED) 4 mg, IntraVENous, EVERY 8 HOURS, First dose on Fri10/28/22 at 1545, For 3 doses 152 (Given - Provider: Manuel Kaplan RN) 0034 (Given - Provider: Jacqui Renteria RN)06 (Given - Provider: Jacqui Renteria RN) escitalopram (LEXAPRO) tablet 10 mg 10 mg, Oral, DAILY, First dose on Fri10/28/22 at 1200, Until Discontinued 131 (Not Given - Provider: Manuel Kaplan RN - Reason: Patient took at home) 09 (Given - Provider: Deloris Chong RN) fluticasone [...] Fri11/04/22 at 2100, 1600 mg at nighttime 231 (Given - Provider: Jacqui Renteria RN) gabapentin (NEURONTIN) tablet 800 mg (CANCELED) 800 mg, Oral, 4 TIMES DAILY, First dose on Fri10/28/22 at 1345, Until Discontinued 152 (Given - Provider: Manuel Kaplan RN)2213 (Not Given - Provider: Jacqui Renteria RN [...] not met)1151 (Not Given - Provider: Deloris Chong RN - Reason: Order parameters not met)1700 (Due) insulin lispro (HUMALOG) injection vial 0-4 Units 0-4 Units, SubCUTAneous, NIGHTLY, First dose on Fri10/28/22 at 2100, Until Discontinued, If continuous tube feedings/TPN/NPO, give correction dose based on result, no reduction in dose. If eating or bolus tube feeding: Corrective Bedtime Algorithm Glucose: Dose: 70-299 No Insulin 300-349 4 Units Over 349 4 Units and notify physician 215 (Not Given - Provider: Jacqui Renteria RN [...] 1315 (Given - Provider: Manuel Kaplan RN) 09 (Given - Provider: Deloris Chong, [place]) scopolamine [...] 1357 (Canceled Entry - Provider: Manuel Kaplan RN)2141 (Not Given - Provider: Jacqui Renteria RN - Reason: IV Fluid Infusing) 901 (Not Given - Provider: Deloris Chong RN - Reason: IV Fluid Infusing)2099 (Due) traZODone (DESYREL) tablet 100 mg 100 mg, Oral, NIGHTLY, First dose on Fri10/28/22 at 2100, Until Discontinued 2220 (Given - Provider: Jacqui Renteria RN) 2099 (Due) Vitamin D (CHOLECALCIFEROL) tablet 6,000 Units Labeling may look different. 25 uwk=5317 Units. Please double check dosages., 6,000 Units, Oral, DAILY, First dose on Fri10/29/22 at 0900, Until Discontinued 0908 (Given - Provid er: Deloris Chong RN) Continuous Medication Order 10/27/2022 10/28/2022 10/29/2022 lactated ringers infusion 125 mL/hr, IntraVENous, CONTINUOUS, Starting on Fri10/28/22 at 1030, Continue until urine output > 30 cc/hr and patient has resumed normal oral intake 1159 (New Bag - Provider: Manuel Kaplan RN) 0627 (New Bag - Provider: Jacqui Renteria [...] rate field of order. bupivacaine-EPINEPHrine (MARCAINE-w/EPINEPHRINE) 0.25% -[id number] injection (CANCELED) PRN, Starting on Fri10/28/22 at 0810, Until Fri10/28/22 at 1008, Intra-op 0810 (Given - Provider: Endy Cruz MD - Comment: OP SITE INJECTION) cyclobenzaprine (FLEXERIL) tablet 5 mg (CANCELED) 5 mg, Oral, NIGHTLY PRN, Starting on Fri10/28/22 at 2100, Until Fri10/29/22 at 0726, Muscle spasms 2214 (Given - Provider: Jacqui Renteria, [place]) dextrose 10 % infusion IntraVENous, at 100 [...] hour of each other unless specifically ordered. 1946 (See Alternative - Provider: Jacqui Renteria RN) [...] Renteria RN) 0314 (Given - Provider: Jacqui Renteria RN)0730 (Given - Provider: Jacqui Renteria RN)1150 [...] Discontinued, Constipation, First line therapy for constipation 230 (Given - Provider: Jacqui Renteria RN) sodium [...] mL IVPB (mini-bag) (COMPLETED) 2,000 mg, IntraVENous, [address] 1 dose, On Sonia 11/06/23 at 1100, Antimicrobial Indications: Surgical Prophylaxis, Pre-op (day of surgery) 1248 (New Bag - Prov ider: Alicia Jalloh, CORPORATE STRATEGY ANALYST - CLINICAL PROGRAM COORDINATOR) HYDROcodone-acetaminophen (NORCO) 5-325 MG per tablet 1 [...] of order., PACU only bupivacaine-EPINEPHrine (MARCAINE-w/EPINEPHRINE) 0.25% -1:[id number] injection (CANCELED) PRN, Starting on Sonia 11/06/23 at 1247, Until Sonia 1223 at 1315, Intra-op 1247 (Given - Provid [...] on Sonia 11/06/23 at 1307, Until Discontinued, Pain Moderate (4-6), For Phase I. If Phase II oral narcotics have been administered in the last 60 minutes, do not administer IV narcotics unless specifically approved by provider., PACU only HYDROmorphone (DILAUDID) injection 0.5 mg 0.5 mg, IntraVENous, EVERY 5 MIN PRN, 2 doses, Starting on Sonia 11/06/23 at 1307, Until Discontinued, Pain Severe (7-10), [...] BE BASED ON THE PRIMARY CLINICAL RECORDS. [employer] provides no warranty or guarantee of the accuracy or completeness of information in this document.
[2025-05-04 14:00] LABS: Estimated Average Glucose 128 mg/dL; Glycohemoglobin A1C 6.1 % (4.5-6.2)
== END 2025-05-04 10:39 | disposition home or self-care (01) ==
LOC: LAB 10:38
PROVIDERS: PCP Family Medicine
DX: Z12.31 Encounter for screening mammogram for malignant neoplasm of breast (principal); E11.9 Type 2 diabetes mellitus without complications; Z80.3 Family history of malignant neoplasm of breast; Z80.41 Family history of malignant neoplasm of ovary; Z80.8 Family history of malignant neoplasm of other organs or systems
CPT/HCPCS: 36415; 77063; 77067; 83036

== ENCOUNTER 2025-05-14 10:41 | Outpatient (OUT) | payer MEDICARE, OTHER, SELFPAY ==
--- OUTSIDE RECORDS SUMMARY | 2025-05-14 10:45 | XMS_ITS | CCD ---
Author Organization [facility] Care Team Providers Care Store Clerk Cashier Name Role Phone Davie Hernandes Primary Care Provider Unavailabl e ENDY CRUZ Referring Unavailable DAVIE HERNANDES Primary Care Unavailable Davie Hernandes Primary Care Provider [phone] Niki Pearson Primary Care Physician [phone] MD Marito Villalobos Attending Provider MD Marito Villalobos Attending Provider [phone] Davie Hernandes Primary Care Provider Niki Pearson MD Primary Care Provider Niki Pearson MD Primary Care Provider [phone] ROCÍO REYES V Consulting Unavailable [...] Unavailable Niki Pearson MD Primary Care Provider [phone] Unavailable Primary Care Provider Unavailabl ENDY Pearson Attending Unavailable NIKI PEARSON Primary Care Unavailable ENDY CRUZ Admitting Unavailable LUZ GARG Attending Unavailable NIKI PEARSON Primary Care Unavailable ENDY CRUZ Referring Unavailable NIKI PEARSON Primary Care Unavailable ENDY CRUZ Attending Unavailable NIKI PEARSON Primary Care Unavailable ENDY CRUZ Admitting Unavailable Niki Pearson MD Primary Care Provider [phone] FLORIN BURGOS Attending Unavailable FLORIN BURGOS Attending Unavailable FLORIN BURGOS Attending Unavailable AL ZURITA Attending Unavailable FLORIN BURGOS Attending Unavailable FLORIN BURGOS Attending Unavailable Niki Pearson MD Primary Care Provider [phone] ROSALBA GREGORIO Attending Unavailable ROSALBA GREGORIO Attending Unavailable ROSALBA GREGORIO Attending Unavailable ROKICKI, ROSALBA A. Attending Unavailable ROVICCKI, ROSALBA A. Attending Unavailable ROKICKI, ROSALBA A. [...] to drug 03-27-20 17 Other (See Comments) [email or web address] Phone: (7 sources) celecoxib Drug Allergy 01-03-20 21 Other (See Comments) [email or web address] Phone: (20 sources) Codeine; Translations: [codeine] Drug Allergy 10-09-20 14 Nausea And Vomiting, Nausea and vomiting (disorder) [email or web address] Phone: (7 sources) egg white (chicken) allergenic extract Drug Allergy 01-12-20 21 Swelling [email or web address] Phone: (7 sources) Glutaral Drug Allergy 01-03-20 21 Other (See Comments) [email or web address] Phone: (6 sources) NSAIDs; Translations: [NSAIDs] Propensity to adverse reactions to drug 08-04-20 20 Other (See Comments), Gastric ulcer (disorder) [email or web address] Phone: (20 sources) oxaprozin Drug Allergy 01-03-20 21 Other (See Comments), Hives [email or web address] Phone: (1 source) Adhesive bandage Drug allergy Eruption of skin (disorder) [facility] [place] (20 sources) Sulfonamides (Antibiotic) Propensity to adverse reactions to drug 06-17-20 22 Other (See Comments), Hives, Rash [facility] (2 sources) Non-steroidal anti-inflammatory agent Propensity to adverse reactions to drug 08-04-20 20 Other (See Comments) [facility] Work Phone: (1 source) Adhesive agent Drug allergy (disorder) 01-06-20 19 [facility] (1 source) celecoxib Drug Allergy 01-03-20 21 [facility] (1 source) Codeine Drug Allergy 10-09-20 14 [facility] (1 source) egg extract Drug Allergy [facility] (1 source) Glutaral Drug Allergy 01-03-20 21 [facility] (1 source) NSAIDs Drug allergy (disorder) 10-09-20 14 [facility] (1 source) oxaprozin Drug Allergy 01-03-20 21 [facility] (1 source) Acetaminophen Drug Allergy 08-05-20 23 Other (See Comments) [facility] (16 sources) Diclofenac / miSOPROStol Drug Allergy 08-05-20 23 Other (See Comments) [facility] (15 sources) Acetaminophen Drug Allergy 08-05-20 23 [facility] (15 sources) celecoxib Drug Allergy 01-03-20 21 [facility] (15 sources) Glutaral Drug Allergy 01-03-20 21 [facility] (15 sources) Non-steroidal anti-inflammatory agent Drug Intolerance 08-04-20 20 [facility] (3 sources) Eggs Or Egg-Derived Products Drug Allergy 01-12-20 21 Swelling [facility] (15 sources) Other Propensity to adverse reactions 08-04-20 20 [facility] (15 sources) Wound Dressing Adhesive Drug Intolerance 03-27-20 17 [facility] (12 sources) Egg-Derived Products Drug Allergy 01-12-20 21 Swelling [facility] (1 source) ALLERGIES NOT ON FILE; Translations: [ALLERGIES NOT ON FILE] Propensity to adverse reactions (disorder) [facility] Medications Current Medications Medication Drug [...] (DUONEB) nebulizer solution 1 ampule ALFALFA PO (15 sources) ALFALFA PO Take by mouth Active ALFALFA PO Take by mouth 0 Active aspirin 81 mg delayed release oral tablet (20 sources) Platelet Aggregation Inhibitor, Nonsteroidal Anti-inflammatory Drug aspirin 81 MG EC tablet 1 (one) time each day at the same time. Active b complex vitamins capsule (15 sources) take 1 capsule by mouth in the morning b complex vitamins capsule Take 1 capsule by mouth in the morning. Active take 1 capsule by mouth in the m orning b complex vitamins capsule Take 1 capsule by mouth in the morning. 0 Active beta carotene 44076 unt oral capsule (20 sources) beta carotene (V itamin A) 25297 units capsule Take 25,000 Units by mouth. Active take 1 capsule by mouth once [place] beta carotene 70311 units capsule Take 25,000 Units by mouth daily 0 Suspended biotin 1 mg chewable tablet (20 sources) Biotin 1000 MCG chewable tablet every 12 (twelve) hours. Active take 2 tablets by mo [facility] once daily Biotin 15365 MCG TABS Take 20,000 mcg by mouth daily 0 Suspended End: 08-28-2022 take 2 tablets by mouth once daily Biotin 1000 MCG CHEW biotin 1,000 mcg chewable tablet Take 2 tablets every day by oral route. 0 08/28/2022 Discontinued (Therapy completed) busPIRone hydrochloride 10 mg oral tablet (19 sources) Start: 04-05-2025 End: 03-31-2026 take 1 tablet by mouth once daily busPIRone (Buspar) 10 MG tablet Indications: Anxiety Take 1 tablet (10 mg) by mouth Daily 90 tablet 3 04/05/2025 03/31/2026 Active Start: 03-25-2024 End: 03-20-2025 take 1 tablet [...] + D + K) 750-500-40 MG-UNT-MCG tablet (15 sources) calcium-vitamin D-vitamin K (Calcium + D [...] at 0900 take 2 tablets by mo uth once daily as needed cetirizine (ZYRTEC) 5 MG tablet Take 10 mg by mouth daily as needed 0 Suspended cetirizine (ZYRT EC) 5 MG tablet Take 5 mg by mouth 0 Active clonazePAM 0.5 mg oral tablet (20 sources) Benzodiazepine Start: 06-22-2024 End: 05-31-2025 take 1 tablet by mouth in the morning, then take 1 tablet by mouth in the evening, then take 1 tablet by mouth at bedtime clonazePAM (KlonoPIN) 0.5 MG tablet Indications: Seizure (HCC) Take 1 tablet (0.5 mg) by mouth in the morning and 1 tablet (0.5 mg) in the evening and 1 tablet (0.5 mg) before bedtime. 270 tablet 03/02/2025 05/31/2025 Active Start: 09-25-2023 End: 03-24-2024 take 1 [...] 1 ml denosumab 60 mg/ml prefilled syringe (12 sources) RANK Ligand Inhibitor inject 60 mg by subcutaneous injection once denosumab (Prolia) 60 MG/ML solution prefilled syringe Inject 60 mg under the skin 1 (one) time Active 1 ml diphenhydrAMINE hydrochloride 50 mg/ml cartridge (1 source) Histamine-1 Receptor Antagonist Start: 2020 End: 2020 diphenhydrAMINE (BENADRYL) injection 12.5 mg docosahexaenoic acid 120 mg / eicosapentaenoic acid 180 mg oral capsule (20 sources) omega-3 (Fish Oi l) 1000 MG capsule 1 capsule 1 (one) time each day at the same time. Active take 1 capsule by mouth twice da ofelia [place]-3 Fatty Acids (FISH OIL) 1000 MG CAPS [...] MG tablet Indications: Depression, unspecified depression type TAKE 1 TABLET BY [...] macrobid 1 tablet 1 06/17/2022 06/17/2022 Active gabapentin 800 mg oral tablet (20 sources) Anti-epileptic Agent Start: 03-25-2024 End: 04-01-2025 gabapentin (Neurontin) 800 MG tablet Indications: Focal epilepsy (HCC) Take 1 tablet (800 mg) by mouth in the morning and 1 tablet (800 mg) at noon and 1 tablet (800 mg) in the evening and 1 tablet (800 mg) before bedtime. 120 tablet 3 03/02/2025 Active Start: 10-21-2023 End: 01-19-2024 take 1 tablet [...] 0 10/29/2022 Discontinued (Stop Taking at Discharge) garlic preparation 2 mg oral capsule (18 sources) Non-Standardized Food Allergenic Extract Garlic 2 [...] 11-06-2023 labetalol (NORMODYNE;TRANDATE) injection 10 mg Lecithin (12 sources) LECITHIN PO Take by mouth Active [...] mg Multiple Vitamin (Multi Vilma min) tablet (15 sources) Multiple Vitamin (Multi Vitamin) tablet every 12 (twelve) hours. Active Multiple Vitamin (Multi Vitamin) tablet every 12 (twelve) hours. 0 Active Nasonex 50 mcg/inh [place] (1 source) Start: 03-25-2022 take 1 spray(s) nasal route twice daily as needed Nasonex 50 mcg/inh [place] = 1 spray(s), Nasal, BID, PRN for [...] tablet 0 06/17/2022 06/20/2022 Active phenytoin sodium 100 mg extended release oral capsule (20 sources) Anti-epileptic Agent Start: 12-22-2023 End: 05-04-2025 take 3 capsules by mouth at bedtime phenytoin ER (Dilantin) 100 MG capsule Indications: Focal epilepsy (HCC) TAKE 3 CAPSULES BY MOUTH AT BEDTIME 270 capsule 3 05/04/2025 Active Start: 12-22-2023 End: 08-02-2025 Dilantin 30 MG capsule Indic ations: Generalized seizure disorder (HCC) Take 1 capsule (30 mg) by mouth Daily Total of 10 capsules per week. 90 capsule 3 03/02/2025 05/04/2025 Discontinued (Reorder) Start: 10-29-2022 take 60 mg [...] capsule 2 capsules three times a week TU, TH, SAT AT NIGHT 0 Suspended take 1 capsule by mo uth four times weekly phenytoin (DILANTIN) 30 MG ER capsule Take 30 mg by mouth four times a week SUN, MON, WED, FRI AT NIGHT 0 Suspended phenytoin (NIGHAT TIN) 100 MG ER capsule Dilantin Extended 100 mg capsule 0 Suspended polyethylene glycol 3350 06735 mg powder for oral solution (1 source) Osmotic Laxative Start: 10-28-2022 polyethylene glycol (GLYCOLAX) packet 17 g prochlorperazine 5 mg/ml injectable solution (1 source) Phenothiazine Start: 11-06-2023 End: 11-07-2023 prochlorperazine (COMPAZINE) injection 5 mg 1 ml promethazine hydrochloride 25 mg/ml injection (1 source) Phenothiazine Start: 02-12-2021 End: 02-12-2021 promethazine (PHENERGAN) injection 6.25 mg Red Yeast Rice Extract (RED YEAST RICE PO) (12 sources) Red Yeast Rice E xtract (RED YEAST RICE PO) Take by mouth Active Respiratory Therapy Supplies (CareTouch CPAP & BIPAP Hose) [facility] ([facility] sources[facility] Start: 05-27-2023 Respiratory Th erapy Supplies (CareTouch CPAP & BIPAP Hose) misc Indications: Obstructive sleep apnea syndrome BIPAP mask, heating tubing and supplies for 1 year. 1 each 05/27/2023 Active Start: 05-27-2023 Respiratory Th erapy Supplies (CareTouch CPAP & BIPAP Hose) misc Indications: Obstructive sleep apnea syndrome BIPAP mask, [...] mouth at bedtime 90 tablet 11 03/02/2025 Active Start: 09-23-2024 End: 03-02-2025 take 2 [...] Start: 07-31-2023 take 3 tablets by mo [facility] at bedtime traZODone (Desyrel) 50 MG tablet Indications: Chronic insomnia Take 3 tablets (150 mg) by mouth at bedtime. Take 3 Tablets (150mg( by mouth at bedtime 90 tablet 11 07/31/2023 Active Start: 09-02-2022 take 100 mg by mouth once elbert y 100 mg, Oral, NIGHTLY, First dose on Fri10/28/22 at 2100, Until Discontinued Start: 03-25-2022 take 1 tablet by [facility] once daily at bedtime traZODONE 50 mg [...] Start Date: 03/26/22 Status: Ordered Turmeric extract (18 sources) Turmeric (CURCUM IN 95 PO) Take by mouth Active End: 10-25-2022 take 1 capsule by mouth once daily turmeric 500 MG CAPS Take by mouth daily 0 10/25/2022 Discontinued (Therapy completed) take 1 capsule by mo [facility] once daily turmeric 500 MG CAPS Take by mouth daily 0 Active turmeric 500 MG CAPS Take by mouth 0 Active Turmeric (CURCUM IN 95) 500 MG CAPS Take by mouth 0 Suspended Turmeric (CURCUM IN 95) 500 MG CAPS Take by mouth 0 Active ubidecarenone 100 mg / vitam in e 5 unt oral capsule (15 sources) coenzyme Q-10 10 0 MG capsule [...] zinc gluconate 50 mg oral ta blet (15 sources) zinc gluconate 5 0 MG tablet [...] mg from all sources in 24 hours. [place] 500 MG TABS (7 sources) take 1 tablet by mouth once daily [place] 500 MG TABS Take by mouth daily 0 Suspended take 1 tablet by mouth once elbert y [place] 500 MG TABS Take by mouth daily 0 Active [place] 500 MG T ABS Take by mouth 0 Suspended [place] 500 MG T ABS Take by mouth [...] hours. Active carvedilol 6.25 mg oral tablet (20 sources) alpha-Adrenergic Elmo, beta-Adrenergic Elmo Start: 09-03-2022 [...] once daily Labeling may look different. 25 rso=[id number] Units. Please double check dosages. 6,000 Units, Oral, DAILY, First dose on Fri10/29/22 at 0900, Until Discontinued cholecalciferol (Vitamin D-3) 125 MCG (5000 UT) tablet Take 6,000 Units by mouth Active take 1 tablet by [facility] once daily Cholecalciferol (VITAMIN D3) 125 MCG [...] mg (1 mL), Injection, Once , On [facility] 09/23/24 at 1645, For 1 dose Start: [...] 1200, Until Discontinued Substituted for Mometasone (NASONEX). glipiZIDE 5 mg oral tablet (20 sources) Sulfonylurea Start: 10-28-2022 take 5 mg [...] Until Discontinued take 3 tablets by mo ut at bedtime melatonin 3 MG tablet 3 [...] Antifungal Start: 06-17-2022 End: 08-28-2022 nystatin (MYCOSTATIN) [id number] UNIT/GM ointment Apply topically 2 times daily. [...] 5 mg pioglitazone 15 mg oral tablet (20 sources) Peroxisome Proliferator Receptor alpha Agonist, Peroxisome [...] Documented Da te Episodic/Chronic Acute cerebrovascular disease (19 sources) Cerebral infarction, unspecified; Translations: [Cerebrovascular accident] [...] PAU CAROTID ART] Onset: 05-03-2022 Chronic Osteoarthritis (12 sources) Arthritis of left knee; Translations: [Unilateral [...] 11-06-2023 11-06-2023 Chronic Other nervous system disorders (15 sources) Brachial plexus disorder; Translations: [Brachial plexus disorders] Onset: 04-13-2023 04-13-2023 Chronic Other nervous system disorders (3 sources) Ulnar neuropathy; Translations: [Lesion of ulnar nerve, bilateral upper limbs] Onset: 07-21-2023 07-21-2023 Chronic Other nervous system disorders (15 sources) Difficulty walking; Translations: [Difficulty in walking, not elsewhere classified] Onset: 07-31-2023 07-31-2023 Chronic Other nervous system disorders (15 sources) Mortons neuroma of right foot; Translations: [Lesion of plantar nerve, right lower limb] Onset: 07-31-2023 07-31-2023 Chronic Other nervous system disorders (15 sources) Right foot neuritis; Translations: [Unspecified mononeuropathy of right lower limb] Onset: 07-31-2023 07-31-2023 Chronic Other nervous system disorders (12 sources) Bilateral ulnar nerve disorder; Translations: [Lesion of ulnar nerve, bilateral upper limbs] Onset: 07-21-2023 07-21-2023 Chronic Other nervous system disorders (9 sources) Carpal tunnel syndrome of right wrist; Translations: [Carpal tunnel syndrome, right upper limb] Onset: 11-06-2023 12-25-2023 Chronic Other nervous system disorders (9 sources) Disorder of nerve root and/or plexus; [...] Chronic Other nutritional; endocrine; and metabolic disorders (15 sources) Obesity; Translations: [Obesity, unspecified] Onset: 11-19-2021 07-31-2023 Chronic Other nutritional; endocrine; and metabolic disorders (15 sources) Severe obesity; Translations: [Morbid (severe) obesity due to excess calories] Onset: 12-31-2021 07-31-2023 Chronic Other screening for suspected conditions (not mental disorders or infectious disease) (4 sources) Encounter for screening mammogram for malignant neoplasm of breast; Translations: [ENC SCR MAMMO MALIG NEOPLASM BREAST] Onset: 03-11-2023 Episodic Other skin disorders (15 sources) Lichen sclerosus et atrophicus; Translations: [Circumscribed scleroderma] Onset: 11-19-2021 07-31-2023 Chronic Other upper respiratory disease (1 source) 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; Translations: [Allergic rhinitis due to animal (cat) (dog) hair and dander] 09-23-2024 Chronic Residual codes; unclassified (20 sources) Obstructive sleep apnea syndrome; Translations: [Obstructive sleep apnea (adult) (pediatric)] Onset: 11-19-2021 03-27-2022 Chronic Residual codes; unclassified (15 sources) Idiopathic sleep related non-obstructive alveolar hypoventilation; [...] FATIGUE] Onset: 11-12-2022 Episodic Nausea and vomiting (15 sources) Postoperative nausea and vomiting; Translations: [Nausea with vomiting, unspecified] Onset: 07-31-2023 07-31-2023 Episodic Nutritional deficiencies (15 sources) Vitamin B12 deficiency (non anemic); Translations: [Deficiency of other specified B group vitamins] Onset: 07-31-2023 07-31-2023 Episodic Other aftercare (19 sources) Long-term current use of systemic steroid; Translations: [snf (current) use of systemic steroids] Onset: 09-02-2022 Episodic Other aftercare (1 source) 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 teacher (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; Translations: [OTH GASOLINE ENGINE INSPECTOR CURRENT DRUG THERAPY] Onset: 05-15-2022 Episodic Other connective tissue disease (20 sources) History of cervical spine fusion; Translations: [Arthrodesis status] Onset: 09-02-2022 Episodic Other connective tissue disease (1 source) Myalgia, unspecified site; Translations: [MYALGIA UNSPECIFIED SITE] Onset: 05-24-2022 Episodic Other connective tissue disease (4 sources) Pain in right foot; Translations: [PAIN IN RIGHT FOOT] Onset: 03-20-2022 Episodic Other connective tissue disease (15 sources) Muscle pain; Translations: [Myalgia, unspecified site] Onset: 07-31-2023 07-31-2023 Episodic Other connective tissue disease (9 sources) Trochanteric bursitis of right hip; Translations: [Trochanteric bursitis, right hip] Onset: 09-23-2024 09-23-2024 Episodic Other female genital disorders (15 sources) Vaginal intraepithelial neoplasia grade 1; 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] Onset: 11-19-2021 07-31-2023 Episodic Other lower respiratory disease (1 source) Personal history of pneumonia (recurrent); Translations: [PERSONAL HX OF PNEUMONIA RECURRENT] Onset: 04-16-2022 Episodic Other nervous system disorders (1 source) Other abnormalities of gait and mobility; Translations: [OTHER ABNORMALITIES GAIT AND MOBILITY] Onset: 04-16-2022 Episodic Other nervous system disorders (17 sources) Allodynia; Translations: [Other disturbances of skin [...] Onset: 03-28-2022 Episodic Pleurisy; pneumothorax; pulmonary collapse (19 sources) Atelectasis; Translations: [Atelectasis] Onset: 09-04-2022 Episodic Residual codes; unclassified (19 sources) Insomnia; Translations: [Insomnia, unspecified] Onset: 10-28-2022 03-26-2022 Episodic Residual codes; unclassified (1 source) Acquired absence of other specified parts of digestive tract; Translations: [ACQ ABSENCE OTH PART DIGESTV TRACT] Onset: 05-15-2022 Episodic Residual codes; unclassified (15 sources) Amnesia; Translations: [Other amnesia] Onset: 07-31-2023 07-31-2023 Episodic Respiratory failure; insufficiency; arrest (adult) (19 sources) Acute respiratory failure; Translations: [Acute respiratory failure with hypoxia] Onset: 09-03-2022 Episodic Spondylosis; intervertebral disc disorders; other back problems (20 sources) Spinal stenosis in cervical region; Translations: [Spinal stenosis, cervical region] Onset: 05-24-2022 Episodic Results Test Name Value Interpretation Reference Range Facility [facility] 05-06-2025 [facility] [id number] Kristin Null 1960 F Date Provider Department Center 05/06/2025 [facility] [place] [facility] No family history on file Normal [facility] 04-08-2025 [facility] [id number] Kristin Null 1960 F Date Provider Department Center 04/08/2025 [facility] [place] [facility] No family history on file Normal [facility] 03-11-2025 [facility] [id number] Kristin Null 1960 F Date Provider Department Center 03/11/2025 [facility] [place] [facility] No family history on file Normal [facility] 02-25-2025 [facility] [id number] Kristin Null 1960 F Date Provider Department Center 02/25/2025 [facility] [place] [facility] No family history on file Normal [facility] 02-11-2025 [facility] [id number] Kristin Null 1960 F Date Provider Department Center 02/11/2025 [facility] [place] [facility] No family history on file Normal [facility] 01-21-2025 [facility] [id number] Kristin Null 1960 F Date Provider Department Center 01/21/2025 [facility] [place] [facility] No family history on file Normal [facility] 12-09-2024 [facility] [id number] Kristin Null 1960 F Date Provider Department Center 12/09/2024 [facility] [place] [facility] No family history on file Normal [facility] 11-19-2024 [facility] [id number] Kristin Null 1960 F Date Provider Department Center 11/19/2024 [facility] [place] [facility] No family history on file Normal [facility] 10-22-2024 [facility] [id number] Kristin Null 1960 F Date Provider Department Center 10/22/2024 [facility] [place] [facility] No family history on file Normal [facility] 09-17-2024 [facility] [id number] Kristin Null 1960 F Date Provider Department Center 09/17/2024 [facility] [place] [facility] No family history on file Normal [facility] 08-20-2024 [facility] [id number] Kristin Null 1960 F Date Provider Department Center 08/20/2024 [facility] [place] [facility] No family history on file Normal [facility] 07-30-2024 [facility] [id number] Kristin Null 1960 F Date Provider Department Center 07/30/2024 [facility] [place] [facility] No family history on file Normal [facility] 06-25-2024 [facility] [id number] Kristin Null 1960 F Date Provider Department Center 06/25/2024 [facility] No family history on file Normal [facility] 05-28-2024 [facility] [id number] Kristin Null 1960 Date Provider Department [place] 05/28/2024 [facility] file [facility] OPERATIVE REPORTon OPERATIVE REPORT [address] [address] OPERATIVE REPORT PATIENT NAME: KRISTIN NULL : 1960 MED REC NO: [id number] ROOM: ACCOUNT NO: [id number] ADMIT DATE: 11/06/2023 PROVIDER: Endy Cruz MD [...] satisfactory condition. ENDY CRUZ MD [id number] Doc#: [id number] CC: Endy Cruz MD Normal [facility] POC Glucose Fingerstickon Glucose [Mass/Vol] 134 mg/dL High 65 - 105 mg/dL [facility] Comment on above: [place] [address] Interpretation and review of laboratory results Abnormal [facility] OPERATIVE REPORTon 3 OPERATIVE REPORT [address] [address] OPERATIVE REPORT PATIENT NAME: KRISTIN NULL : 1960 MED REC NO: [id number] ROOM: ACCOUNT NO: [id number] ADMIT DATE: 08/18/2023 PROVIDER: Endy Cruz MD DATE OF PROCEDURE: 08/18/2023 SURGEON: Endy Cruz MD INDEPENDENT LIVING INSTRUCTOR: Hayder Burch MD ANESTHESIA: General inhalation. PREOPERATIVE [...] satisfactory condition. ENDY CRUZ MD [id number] Doc#: [id number] CC: Endy Cruz MD Normal [facility] BUN + Creatinineon 3 Creatinine [Mass/Vol] 0.7 mg/dL Normal 0.5-0.9 [facility] [place] Comment on above: Performed By: #### B UNCRT, GLU, CBC, LYTE #### [employer] [address] [place] [address] Machine Wedger: Kenyon Hewitt MD GFR/1.73 sq M.predicted among non-blacks MDRD (S/P/Bld) [Vol rate/Area] mL/min/{1.73_m2} Normal >60 [facility] Comment on above: Result Comment: These [...] #### B UNCRT, GLU, CBC, LYTE #### [employer] [address] [place] [id number] Machine Wedger: Kenyon Hewitt MD Urea nitrogen [Mass/Vol] 19 mg/dL Normal 8-23 [facility] Comment on above: Performed By: #### B UNCRT, GLU, CBC, LYTE #### [employer] [address] [place] [id number] Machine Wedger: Kenyon Hewitt MD CBCon 08-05-2023 Erythrocyte distribution width (RBC) [Ratio] 12.8 % Normal 11.8-14.4 [facility] Comment on above: Performed By: #### B UNCRT, GLU, CBC, LYTE #### [address] [id number] Machine Wedger: Kenyon Hewitt MD Hematocrit (Bld) [Volume fraction] 45.0 % Normal 36.3-47.1 [facility] Comment on above: Performed By: #### B UNCRT, GLU, CBC, LYTE #### [place] [address] Machine Wedger: Kenyon Hewitt MD Hemoglobin (Bld) [Mass/Vol] 15.2 g/dL High 11.9-15.1 [facility] Comment on above: Performed By: #### B UNCRT, GLU, CBC, LYTE #### [address] [address] Machine Wedger: Kenyon Hewitt MD MCH (RBC) [Entitic mass] 32.3 pg Normal 25.2-33.5 [facility] Comment on above: Performed By: #### B UNCRT, GLU, CBC, LYTE #### [address] [address] Machine Wedger: Kenyon Hewitt MD MCHC (RBC) [Mass/Vol] 33.8 g/dL Normal 28.4-34.8 [facility] [place] Comment on above: Performed By: #### B UNCRT, GLU, CBC, LYTE #### [address] [id number] Machine Wedger: Kenyon Hewitt MD MCV (RBC) [Entitic vol] 95.7 fL Normal 82.6-102.9 [facility] Comment on above: Performed By: #### B UNCRT, GLU, CBC, LYTE #### [address] [address] Machine Wedger: Kenyon Hewitt MD NRBC Automated 0.0 per 100 WBC Normal 0.0 [facility] Comment on above: Performed By: #### B UNCRT, GLU, CBC, LYTE #### [address] [address] Machine Wedger: Kenyon Hewitt MD Platelet mean volume (Bld) [Entitic vol] 10.0 fL Normal 8.1-13.5 [facility] Comment on above: Performed By: #### B UNCRT, GLU, CBC, LYTE #### [address] [id number] Machine Wedger: Kenyon Hewitt MD Platelets (Bld) [#/Vol] 201 10*3/uL Normal 138-453 [facility] Comment on above: Performed By: #### B UNCRT, GLU, CBC, LYTE #### [address] [address] Machine Wedger: Kenyon Hewitt MD RBC (Bld) [#/Vol] 4.70 10*6/uL Normal 3.95-5.11 [facility] Comment on above: Performed By: #### B UNCRT, GLU, CBC, LYTE #### [address] [address] Machine Wedger: Kenyon Hewitt MD WBC (Bld) [#/Vol] 7.1 10*3/uL Normal 3.5-11.3 [facility] Comment on above: Performed By: #### B UNCRT, GLU, CBC, LYTE #### [address] [address] Machine Wedger: Kenyon Hewitt MD Electrolyteson 08-05-2023 Anion gap [Moles/Vol] 10 mmol/L Normal 9-17 [facility] Comment on above: Performed By: #### B UNCRT, GLU, CBC, LYTE #### [facility] [employer] [address] [place] [address] Machine Wedger: Kenyon Hewitt MD Chloride [Moles/Vol] 98 mmol/L Normal 98-107 [facility] Comment on above: Performed By: #### B UNCRT, GLU, CBC, LYTE #### [facility] [employer] [address] [place] [address] Machine Wedger: Kenyon Hewitt MD CO2 [Moles/Vol] 28 mmol/L Normal 20-31 [facility] Comment on above: Performed By: #### B UNCRT, GLU, CBC, LYTE #### [facility] [employer] [address] [place] [address] Machine Wedger: Kenyon Hewitt MD Potassium [Moles/Vol] 4.4 mmol/L Normal 3.7-5.3 [facility] [place] Comment on above: Result Comment: SPEC IMEN SLIGHTLY HEMOLYZED, RESULTS MAY BE ADVERSELY AFFECTED. Performed By: #### B UNCRT, GLU, CBC, LYTE #### [facility] [employer] [address] [place] [address] Machine Wedger: Kenyon Hewitt MD Sodium [Moles/Vol] 136 mmol/L Normal 135-144 [facility] Comment on above: Performed By: #### B UNCRT, GLU, CBC, LYTE #### [facility] [employer] [address] [place] [address] Machine Wedger: Kenyon Hewitt MD Glucoseon 08-05-2023 Glucose [Mass/Vol] 84 mg/dL Normal 70-99 [facility] Comment on above: Performed By: #### B UNCRT, GLU, CBC, LYTE #### [facility] [employer] [address] [place] [address] Machine Wedger: Kenyon Hewitt MD MG MAMM SCREEN 3D PAU CADon 03-11-2023 MG MAMM SCREEN 3D PAU CAD Patient: KRISTIN NULL Exam Date: 03/11/2023 : 1960 Gender:F Ordering : PITA JoseOzzy VENTURA Admission #: [id number] Family : Order #: [id number] CLICK HERE TO VIEW EXAM RADIOLOGY REPORT PROCEDURE: MAMMOGRAM SCREENING 3D BILATERAL CAD COMPARISON: MG MAMM DX 3D RT CAD, 10/03/2021. MG MAMM SCREEN 3D APU CAD, 09/05/2021. INDICATIONS: Screening mammography Calculator Name NCI Breast Cancer Risk Assessment Tool 5 Year Breast Cancer Risk 2.30% Lifetime Breast Cancer Risk 9.20% Personal Breast Cancer No Personal Ovarian Cancer No Treatments None Family Cancers Niece with breast cancer at age 50; Mother with ovarian cancer at age 93; Sister with uterine cancer at age 63. LOCATION: [facility] BREAST COMPOSITION: Scattered areas fibroglandular density. [...] LUMP SHOULD BE BIOPSIED. Dictated by: Rocío eRyes MD on 03/12/2023 at 09:06 Approved by: Rocío Reyes MD on 03/12/2023 at 09:08 Normal [facility] XR DEXA BONE DENSITYon 03-08 XR [...] ROCÍO REYES Date: 2023-03-08 08:59 Normal [facility] INSULINon 11-09-2022 Insulin 23.0 uIU/mL Normal 2.6-24.9 [facility] Comment on above: Performed By: #### V ITAD #### [facility] [address] [place] [address] Dr. Sveta Velasquez CBC AUTO DIFFon 11-08-2022 BASO # 0.0 103/ul Normal 0.0-0.1 [facility] Comment on above: Performed By: #### V ITAD #### [facility] [address] [place] [address] Dr. Sveta Velasquez Basophils/100 WBC (Bld) 0.5 % Normal 0.2-2.0 [facility] Comment on above: Performed By: #### V ITAD #### [facility] [address] [place] [address] Dr. Sveta Velasquez EO # 0.2 103/ul Normal 0.0-0.7 [facility] Comment on above: Performed By: #### V ITAD #### [facility] [address] [place] [address] Dr. Sveta Velasquez Eosinophils/100 WBC (Bld) 2.6 % Normal 0.9-7.0 [facility] Comment on above: Performed By: #### V ITAD #### [facility] [address] [place] [address] Dr. Sveta Velasquez Erythrocyte distribution width (RBC) [Ratio] 12.7 % Normal 11.0-15.0 [facility] Comment on above: Performed By: #### V ITAD #### [facility] [address] [place] [address] Dr. Sveta Velasquez Hematocrit (Bld) [Volume fraction] 40.5 % Normal 36.0-48.0 [facility] Comment on above: Performed By: #### V ITAD #### [facility] [address] [place] [address] Dr. Sveta Velasquez Hemoglobin (Bld) [Mass/Vol] 13.7 g/dL Normal 12.0-16.0 [facility] Comment on above: Performed By: #### V ITAD #### [facility] [address] [address] [address] Sveta Velasquez IG # 0.01 10e3/ul Normal 0.00-0.03 [facility] Comment on above: Performed By: #### V ITAD #### [facility] [address] [place] [address] Dr. Sveta Velasquez IG % 0.2 % Normal 0.0-0.5 [facility] Comment on above: Performed By: #### V ITAD #### [facility] [address] [place] [address] Dr. Sveta Velasquez LYMPH # 2.0 103/ul Normal 1.2-3.8 [facility] Comment on above: Performed By: #### V ITAD #### [facility] [address] [place] [address] Dr. Sveta Velasquez Lymphocytes/100 WBC (Bld) 32.4 % Normal 20.5-60.0 [facility] Comment on above: Performed By: #### V ITAD #### [facility] [address] [place] [address] Dr. Sveta Velasquez MANUAL DIFF REQ NO Normal [facility] Comment on above: Performed By: #### V ITAD #### [facility] [address] [place] [address] Dr. Sveta Velasquez MCH (RBC) [Entitic mass] 31.1 pg Normal 26.7-34.0 [facility] Comment on above: Performed By: #### V ITAD #### [facility] [address] [place] [address] Dr. Sveta Velasquez MCHC (RBC) [Mass/Vol] 33.8 g/dL Normal 29.9-35.2 [facility] Comment on above: Performed By: #### V ITAD #### [facility] [address] [place] [address] Dr. Sveta Velasquez MCV (RBC) [Entitic vol] 91.8 fL Normal 81.0-99.0 [facility] Comment on above: Performed By: #### V ITAD #### [facility] [address] [place] [address] Dr. Sveta Velasquez MONO # 0.5 103/ul Normal 0.3-0.8 [facility] Comment on above: Performed By: #### V ITAD #### [facility] [address] [place] [address] Dr. Sveta Velasquez Monocytes/100 WBC (Bld) 8.8 % Normal 1.7-12.0 [facility] Comment on above: Performed By: #### V ITAD #### [facility] [address] [place] [address] Dr. Sveta Velasquez NEUT # 3.4 103/ul Normal 1.4-6.5 [facility] Comment on above: Performed By: #### V ITAD #### [facility] [address] [place] [address] Dr. Sveta Velasquez Neutrophils/100 WBC (Bld) 55.5 % Normal 43.0-75.0 [facility] Comment on above: Performed By: #### V ITAD #### [facility] [address] [place] [address] Dr. Sveta Velasquez Platelet mean volume (Bld) [Entitic vol] 9.6 fL Normal 9.5-13.5 [facility] Comment on above: Performed By: #### V ITAD #### [facility] [address] [place] [address] Dr. Sveta Velasquez PLT 280 103/ul Normal 150-450 [facility] Comment on above: Performed By: #### V ITAD #### [facility] [address] [place] [address] Dr. Sveat Velasquez RBC 4.41 106/ul Normal 4.20-5.40 [facility] Comment on above: Performed By: #### V ITAD #### [facility] [address] [place] [address] Dr. Sveta Velasquez WBC 6.1 103/ul Normal 4.0-11.0 [facility] Comment on above: Performed By: #### V ITAD #### [facility] [address] [place] [address] Dr. Sveta Velasquez DILANTINon 11-08-2022 Phenytoin [Mass/Vol] 8.4 ug/mL Critically low 10.0-20.0 [facility] Comment on above: Performed By: #### P HY #### [facility] [address] [place] [address] Dr. Sveta Velasquez FREE T3on 11-08-2022 FREE T3 2.33 pg/mlL Normal 2.18-3.98 [facility] Comment on above: Performed By: #### V ITAD #### [facility] [address] [place] [address] Dr. Sveta Velasquez GLYCOHEMOGLOBIN A1Con 2021 ADA RECOMMENDATION SEE BELOW Normal [facility] Comment on above: Result Comment: ADA RECOMMENDED LIMIT 4.0 - 6.0 ADA THERAPEUTIC TARGET < 7.0 ACTION SUGGESTED > 7.0 Performed By: #### M ISC #### [facility] [address] [place] [address] Dr. Sveta Velasquez Glucose [Mass/Vol] 123 mg/dL Normal [facility] Comment on above: Performed By: #### M ISC #### [facility] [address] [place] [address] Dr. Sveta Velasquez HbA1c (Bld) [Mass fraction] 5.9 % Normal 4.5-6.2 [facility] Comment on above: Performed By: #### M ISC #### [facility] [address] [place] [address] Dr. Sveta Velasquez LIPID PROFILEon 11-08-2022 CHOL-HDL RATIO NORM SEE BELOW Normal [facility] Comment on above: Result Comment: 3.3 - 4.4 LOW RISK 4.4 - 7.1 AVERAGE RISK 7.1 - 11.0 MODERATE RISK >11.0 HIGH RISK Performed By: #### V ITAD #### [facility] [address] [place] [address] Dr. Sveta Velasquez Cholesterol [Mass/Vol] 257 mg/dL Critically high <=200 [facility] Comment on above: Performed By: #### V ITAD #### [facility] [address] [place], [place] [address] Dr. Sveta Velasquez Cholesterol in HDL [Mass/Vol] 45 mg/dL Normal 40-60 [facility] Comment on above: Performed By: #### V ITAD #### [facility] [address] [place], [place] [address] Dr. Sveta Velasquez Cholesterol in LDL [Mass/Vol] 168.8 mg/dL Normal [facility] Comment on above: Performed By: #### V ITAD #### [facility] [address] [address] [address] Sveta Velasquez Cholesterol.total/Chol esterol in HDL [Mass ratio] 5.7 {ratio} Normal [facility] Comment on above: Performed By: #### V ITAD #### [facility] [address] [place] [address] Dr. Sveta Velasquez HDL NORMAL > or = 60 mg/dl - LOW CARDIOVASCULAR RISK <40 mg/dl - HIGH CARDIOVASCULAR RISK Normal [facility] Comment on above: Performed By: #### V ITAD #### [facility] [address] [address] [address] Sveta Velasquez LDL CALC NORMAL SEE BELOW Normal [facility] Comment on above: Result Comment: <100 mg/dl OPTIMAL 100 - 129 mg/dl NEAR OR ABOVE OPTIMAL 130 - 159 mg/dl BORDERLINE HIGH 160 - 189 mg/dl HIGH >190 mg/dl VERY HIGH Performed By: #### V ITAD #### [facility] [address] [address] [address] Sveta Velasquez Triglyceride [Mass/Vol] 216 mg/dL Critically high <=150 [facility] Comment on above: Performed By: #### V ITAD #### [facility] [address] [address] [address] Sveta Velasquez VLDL CALC 43.2 mg/dL Normal [facility] Comment on above: Performed By: #### V ITAD #### [facility] [address] [address] [address] Sveta Velasquez PROF 14(COMP METB)on 022 Albumin [Mass/Vol] 3.9 g/dL Normal 3.4-5.0 [facility] Comment on above: Performed By: #### V ITAD #### [facility] [address] [place] [address] Dr. Sveta Velasquez Albumin/Globulin [Mass ratio] 1.0 {ratio} Normal [facility] Comment on above: Performed By: #### V ITAD #### [facility] [address] [place] [address] Dr. Sveta Velasquez ALP [Catalytic activity/Vol] 97 U/L Normal 46-116 [facility] Comment on above: Performed By: #### V ITAD #### [facility] [address] [place] [address] Dr. Sveta Velasquez ALT [Catalytic activity/Vol] 33 U/L Normal 14-59 [facility] Comment on above: Performed By: #### V ITAD #### [facility] [address] [place] [address] Dr. Sveta Velasquez Anion gap [Moles/Vol] 9.0 mmol/L Normal [facility] Comment on above: Performed By: #### V ITAD #### [facility] [address] [place] [address] Dr. Sveta Velasquez AST [Catalytic activity/Vol] 25 U/L Normal 15-37 [facility] Comment on above: Performed By: #### V ITAD #### [facility] [address] [place] [address] Dr. Sveta Velasquez Bilirubin [Mass/Vol] 0.3 mg/dL Normal 0.2-1.0 [facility] Comment on above: Performed By: #### V ITAD #### [facility] [address] [place] [address] Dr. Sveta Velasquez Calcium [Mass/Vol] 9.6 mg/dL Normal 8.5-10.1 [facility] Comment on above: Performed By: #### V ITAD #### [facility] [address] [place] [address] Dr. Sveta Velasquez Chloride [Moles/Vol] 101 mmol/L Normal 98-107 [facility] Comment on above: Performed By: #### V ITAD #### [facility] [address] [address] [address] Sveta Velasquez CO2 [Moles/Vol] 34.4 mmol/L Critically high 21.0-32.0 [facility] Comment on above: Performed By: #### V ITAD #### [facility] [address] [address] [address] Sveta Velasquez Creatinine [Mass/Vol] 0.76 mg/dL Normal 0.55-1.02 [facility] Comment on above: Performed By: #### V ITAD #### [facility] [address] [address] [address] Sveta Velasquez EGFR-AF [place] >60 Normal >=60 [facility] Comment on above: Performed By: #### V ITAD #### [facility] [address] [place] [address] Dr. Sveta Velasquez EGFR-NON AF [place] >60 Normal >=60 [facility] Comment on above: Performed By: #### V ITAD #### [facility] [address] [address] [address] Sveat Velasquez Globulin (S) [Mass/Vol] 4.0 g/dL Normal [facility] Comment on above: Performed By: #### V ITAD #### [facility] [address] [address] [address] Sveta Velasquez Glucose [Mass/Vol] 136 mg/dL Critically high 74-106 [facility] Comment on above: Performed By: #### V ITAD #### [facility] [address] [address] [address] Sveta Velasquez Potassium [Moles/Vol] 4.4 mmol/L Normal 3.5-5.1 [facility] Comment on above: Performed By: #### V ITAD #### [facility] [address] [address] [address] Sveta Velasquez Protein [Mass/Vol] 7.9 g/dL Normal 6.4-8.2 [facility] Comment on above: Performed By: #### V ITAD #### [facility] [address] [place] [address] Dr. Sveta Velasquez Sodium [Moles/Vol] 140 mmol/L Normal 136-145 [facility] Comment on above: Performed By: #### V ITAD #### [facility] [address] [place] [address] Dr. Sveta Velasquez Urea nitrogen [Mass/Vol] 19.0 mg/dL Critically high 7.0-18.0 [facility] Comment on above: Performed By: #### V ITAD #### [facility] [address] [place] [address] Dr. Sveta Velasquez Urea nitrogen/Creatinine [Mass ratio] 25.0 mg/mg Normal [facility] Comment on above: Performed By: #### V ITAD #### [facility] [address] [place] [address] Dr. Sveta Velasquez T4on 11-08-2022 T4 [Mass/Vol] 5.60 ug/dL Normal 4.80-13.90 [facility] Comment on above: Performed By: #### V ITAD #### [facility] [address] [place] [address] Dr. Sveta Velasquez TSHon 11-08-2022 TSH 2.059 uIU/mL Normal 0.358-3.740 [facility] Comment on above: Performed By: #### V ITAD #### [facility] [address] [place] [address] Dr. Sveta Velasquez VITAMIN D 25 OHon 11-08-2022 VIT D 25-OH 59.4 ng/mL Normal [facility] Comment on above: Performed By: #### V ITAD #### [facility] [address] [place] [address] Dr. Sveta Velasquez VIT D RANGES SEE BELOW Normal [facility] Comment on above: Result Comment: <20 ng/mL Vit D deficient 20 - <30 ng/mL Vit D insufficient 30 - 100 ng/mL Vit D sufficient >100 ng/mL Potential Toxicity Performed By: #### V ITAD #### [facility] [address] [address] [address] Sveta Velasquez Basic Metabolic Panel w/ Ref adry to MGon 10-29-2022 Anion gap [Moles/Vol] 10 mmol/L 9 - 17 mmol/L [facility] Calcium [Mass/Vol] 9.2 mg/dL 8.6 - 10. 4 mg/dL [facility] Chloride [Moles/Vol] 99 mmol/L 98 - 10 7 mmol/L [facility] CO2 [Moles/Vol] 29 mmol/L 20 - 31 mmol/L [facility] Creatinine [Mass/Vol] 0.67 mg/dL 0.50 - 0.90 mg/dL [facility] GFR/1.73 sq M.predicted MDRD (S/P/Bld) [Vol rate/Area] - PINF [facility] Comment on above: Effective Aug 12, [...] 167 mg/dL High 70 - 99 mg/dL [facility] Interpretation and review of laboratory results Abnormal [facility] Potassium [Moles/Vol] 3.9 mmol/L 3.7 - 5.3 mmol/L [facility] Sodium [Moles/Vol] 138 mmol/L 135 - 144 mmol/L [facility] Urea nitrogen (BldV) [Mass/Vol] 13 mg/dL 8 - 23 mg/dL [facility] P[facility] Glucose Fingerstickon Glucose [Mass/Vol] 96 mg/dL 65 - 105 mg/dL [facility] Glucose [Mass/Vol] 166 mg/dL High 65 - 105 mg/dL [facility] Interpretation and review of laboratory results Abnormal [facility] Creatinineon 10-28-2022 Creatinine [Mass/Vol] 0.59 mg/dL 0.50 - 0.90 mg/dL [email or web address] GFR/1.73 sq M.predicted MDRD (S/P/Bld) [Vol rate/Area] - PINF [facility] Comment on above: Effective Aug 12, [...] following therapy that affects renal tubular secretion. [facility] FLUORO FOR SURGICAL PROCEDUR ESon 10-28-2022 Radiology exam is complete. No Radiologist dictation. Please follow up with ordering provider. [facility] P[facility] Glucose Fingerstickon Glucose [Mass/Vol] 136 mg/dL High 65 - 105 mg/dL [facility] Interpretation and review of laboratory results Abnormal [facility] Glucose [Mass/Vol] 158 mg/dL High 65 - 105 mg/dL [facility] Interpretation and review of laboratory results Abnormal [facility] Glucose [Mass/Vol] 154 mg/dL High 65 - 105 mg/dL [facility] Interpretation and review of laboratory results Abnormal [facility] Glucose [Mass/Vol] 122 mg/dL High 65 - 105 mg/dL [facility] Interpretation and review of laboratory results Abnormal [facility] CT CHEST PULMONARY EMBOLISM W [...] definite aspiration. Pneumonia in the differential however. [facility] EXAMINATION: CTA OF THE CHEST 09/04/2022 [...] sternal fracture or acute vertebral body fracture. [facility] Rocío Philippe MD - 09/04/2022 EXAMINATION: [...] definite aspiration. Pneumonia in the differential however. [facility] Work Phone: Radiology Study observation (narrative) [facility] [employer] Work Phone: CT CHEST PULMONARY EMBOLISM W CONTRASTOrdered By: Rocío Philippe on 09-04-2022 [facility] [employer] Work Phone: POC Glucose Fingerstickon Glucose [Mass/Vol] 163 mg/dL High 65 - 105 mg/dL [facility] Interpretation and review of laboratory results Abnormal [facility] Glucose [Mass/Vol] 127 mg/dL High 65 - 105 mg/dL [facility] Interpretation and review of laboratory results Abnormal [facility] CBC with Auto Differentialon 09-03-2022 Absolute Eos # [facility] Absolute Immature Granulocyte 0.[address] [facility] Absolute Lymph # 1.16 [facility] Absolute Sandoval # 0.82 [facility] RS [facility] Basophils Absolute [facility] Basophils/100 WBC (Bld) 0 % 0 - 2 % [facility] Eosinophils/100 WBC (Bld) 0 % Low 1 - 4 % [facility] Hematocrit (Bld) [Volume fraction] 43.0 % 36.3 - 47.1 % [facility] Hemoglobin (Bld) [Mass/Vol] 14.0 g/dL 11.9 - 15.1 g/dL [facility] Immature granulocytes/100 WBC (Bld) 1 % High [address] [facility] Interpretation and review of laboratory results Abnormal [facility] Lymphocytes/100 WBC (Bld) 11 % Low 24 - 43 % [facility] MCH (RBC) [Entitic mass] 31.2 pg 25.2 - 33.[address] [facility] MCHC (RBC) [Mass/Vol] 32.6 g/dL 28.4 - 34.8 g/dL [facility] MCV (RBC) [Entitic vol] 95.8 fL 82.6 - 102.[address] [facility] Monocytes/100 WBC (Bld) 8 % 3 - 12 % [facility] NRBC Automated 0.0 0.0 per [address] [facility] Platelet distribution width (Bld) [Ratio] 13.1 % 11.8 - 14.4 % [facility] Platelet mean volume (Bld) [Entitic vol] 10.1 fL 8.1 - 13.[address] [facility] Platelets (Bld) [#/Vol] 181 10*3/uL [facility] RBC (Bld) [#/Vol] 4.49 10*6/uL 3.95 - 5.1 1 m/uL [facility] Segmented neutrophils/100 WBC (Bld) 80 % High 36 - 65 % [facility] Segs Absolute 8.[address] [facility] WBC (Bld) [#/Vol] 10.7 10*3/uL [facility] Microscopic Urinalysison Epithelial Cells UA 0 TO 2 [facility] RBC, UA None [facility] Comment on above: Reference range defi braydon for non-centrifuged specimen. WBC, UA 2 TO 5 [facility] POC Glucose Fingerstickon Glucose [Mass/Vol] 163 mg/dL High 65 - 105 mg/dL [facility] Interpretation and review of laboratory results Abnormal [facility] Glucose [Mass/Vol] 189 mg/dL High 65 - 105 mg/dL [facility] Interpretation and review of laboratory results Abnormal [facility] Glucose [Mass/Vol] 122 mg/dL High 65 - 105 mg/dL [facility] Interpretation and review of laboratory results Abnormal [facility] Glucose [Mass/Vol] 140 mg/dL High 65 - 105 mg/dL [facility] Interpretation and review of laboratory results Abnormal [facility] SPECIMEN REJECTIONon 022 Ordered Test CDP [facility] Reason for Rejection Unable to perform testing: Specimen hemolyzed. [facility] Specimen source Nom (Unsp spec) .BLOOD [facility] Urinalysis with Reflex to Cu ltureon 09-03-2022 Bilirubin Urine Negative NEGATIVE [facility] Color, UA Yellow Yellow [facility] Glucose, Ur Negative NEGATIVE [facility] Interpretation and review of laboratory results Abnormal [facility] Ketones Ql (U) Negative NEGATIVE [facility] Leukocyte esterase Test strip Ql (U) TRACE Abnormal NEGATIVE [facility] Nitrite, Urine Negative NEGATIVE [facility] pH, UA 7.5 5.0 - 8.[address] [facility] Protein, UA Negative NEGATIVE [facility] Specific [place], UA 1.015 1.005 - 1.[address] [facility] Turbidity UA Clear Clear [facility] Urine Hgb Negative NEGATIVE [facility] Urobilinogen, Urine Normal Normal [facility] XR CHEST PORTABLEon 09-03-20 22 Top normal [...] neck is noted. Pulmonary vascularity top normal. [facility] Kristin Lorenzo MD - 09/03/2022 EXAMINATION: [...] Top normal pulmonary vascularity without overt edema. [employer] Phone: Radiology Study observation (narrative) [employer] Phone: XR CHEST PORTABLEOrdered By: Kristin oLrenzo on 09-03-2022 [employer] Phone: POC Glucose Fingerstickon Glucose [Mass/Vol] 132 mg/dL High 65 - 105 mg/dL [employer] Interpretation and review of laboratory results Abnormal [employer] XR CERVICAL SPINE 1 VWon Radiology exam is complete. No Radiologist dictation. Please follow up with ordering provider. [facility] Radiology exam is complete. No Radiologist dictation. Please follow up with ordering provider. [facility] Radiology exam is complete. No Radiologist dictation. Please follow up with ordering provider. [facility] EKG 12 LeadOrdered By: Karina Lee on 08-29-2022 Atrial Rate 81 BPM [employer] Phone: P [place] 45 degrees [employer] Phone: P-R Interval 178 ms [employer] Work Phone: Q-T Interval 376 ms [employer] Work Phone: QRS Duration 72 ms [employer] Work Phone: QTc Calculation (Bazett) 436 ms [employer] Work Phone: R [employer] [place] 39 degrees [employer] Work Phone: T [employer] [place] 41 degrees [employer] Work Phone: Ventricular Rate 81 BPM [employer] Work Phone: [employer] Work Phone: EKG 12 Leadon 08-29-2022 Normal sinus rhythm Normal ECG When compared with ECG of 29-JAN-2021 14:31, No significant change was found [facility] Karina Mayorga MD - 08/29/2022 Normal sinus rhythm Normal ECG When compared with ECG of 29-JAN-2021 14:31, No significant change was found [employer] Work Phone: BUN & Creatinineon Creatinine [Mass/Vol] 0.61 mg/dL 0.50 - 0.90 mg/dL [employer] GFR/1.73 sq M.predicted MDRD (S/P/Bld) [Vol rate/Area] - PINF [employer] Comment on above: Effective Aug 12, 2022 [...] Interpretation and review of laboratory results Abnormal [employer] Urea nitrogen (BldV) [Mass/Vol] 24 mg/dL High 8 - 23 mg/dL [employer] CBCon 08-28-2022 Hematocrit (Bld) [Volume fraction] 43.3 % 36.3 - 47.1 % [facility] Hemoglobin (Bld) [Mass/Vol] 14.1 g/dL 11.9 - 15.1 g/dL [facility] MCH (RBC) [Entitic mass] 31.1 pg 25.2 - 33.[address] [facility] MCHC (RBC) [Mass/Vol] 32.6 g/dL 28.4 - 34.8 g/dL [facility] MCV (RBC) [Entitic vol] 95.4 fL 82.6 - 102.[address] [facility] NRBC Automated 0.0 0.0 per [address] [facility] Platelet distribution width (Bld) [Ratio] 12.9 % 11.8 - 14.4 % [facility] Platelet mean volume (Bld) [Entitic vol] 10.0 fL 8.1 - 13.[address] [facility] Platelets (Bld) [#/Vol] 182 10*3/uL [facility] RBC (Bld) [#/Vol] 4.54 10*6/uL 3.95 - 5.1 1 m/uL [facility] WBC (Bld) [#/Vol] 6.6 10*3/uL [facility] Electrolyte Panelon 08-28-20 Anion gap [Moles/Vol] 11 mmol/L 9 - 17 mmol/L [facility] Chloride [Moles/Vol] 105 mmol/L 98 - 10 7 mmol/L [facility] CO2 [Moles/Vol] 28 mmol/L 20 - 31 mmol/L [facility] Potassium [Moles/Vol] 4.8 mmol/L 3.7 - 5.3 mmol/L [facility] Sodium [Moles/Vol] 144 mmol/L 135 - 144 mmol/L [facility] Glucose, Randomon 08-28-2022 Glucose [Mass/Vol] 84 mg/dL 70 - 99 mg/dL [facility] No Panel Informationon 08-[address] [facility] GLYCOHEMOGLOBIN A1Con 2021 ADA RECOMMENDATION SEE BELOW Normal [facility] Comment on above: Result Comment: ADA RECOMMENDED LIMIT 4.0 - 6.0 ADA THERAPEUTIC TARGET < 7.0 ACTION SUGGESTED > 7.0 Performed By: #### A 1C #### [facility] [address] [address] [address] Sveta Velasquez Glucose [Mass/Vol] 280 mg/dL Normal [facility] Comment on above: Performed By: #### A 1C #### [facility] [address] [address] [address] Sveta Velasquez HbA1c (Bld) [Mass fraction] 11.4 % Critically high 4.5-6.2 [facility] Comment on above: Performed By: #### A 1C #### [facility] [address] [address] [address] Sveta Velasquez Laboratory - Chemistry and C hemistry - challengeon 06-17-2022 Glucose [Mass/Vol] 306 mg/dL High 65 - 105 mg/dL [facility] [employer] Work Phone: Microscopic Urinalysison Casts UA 2 TO 5 HYALINE Reference range defined for non-centrifuged specimen. [facility] [employer] Epithelial Cells UA 2 TO 5 [facility] RBC, UA 10 TO [address] [facility] Comment on above: Reference range defi braydon for non-centrifuged specimen. WBC, UA 20 TO 50 [facility] No Panel Informationon 06-[address] [facility] POC Glucose Fingerstickon Interpretation and review of laboratory results Abnormal [facility] POCT glucoseon 06-17-2022 Interpretation and review of laboratory results Normal [facility] [employer] Work Phone: QC OK? yes [facility] [employer] Work Phone: Urinalysis with Reflex to Cu ltureon 06-17-2022 Bilirubin Urine Negative NEGATIVE [facility] Color, UA Dark Yellow Abnormal Yellow [facility] [employer] Glucose, Ur 2+ Abnormal NEGATIVE [facility] Interpretation and review of laboratory results Abnormal [facility] Ketones Ql (U) Negative NEGATIVE [facility] Leukocyte esterase Test strip Ql (U) SMALL Abnormal NEGATIVE [facility] Nitrite, Urine Negative NEGATIVE [facility] pH, UA 6.5 5 - [address] [facility] Protein, UA Negative NEGATIVE [facility] Specific [place], UA 1.032 High 1.005 - 1.03 [facility] Turbidity UA Clear Clear [facility] Urine Hgb Negative NEGATIVE [facility] Urobilinogen, Urine Normal Normal [facility] Vaginitis DNA Probeon 2021 ALON SPECIES, DNA PROBE Positive Abnormal NEGATIVE [facility] Comment on above: for Alon sp. Method of testing is a DNA probe intended for detection and identification of Alon species, Gardnerella vaginalis, and Trichomonas vaginalis nucleic acid in vaginal fluid specimens from patients with symptoms of vaginitis/vaginosis. GARDNERELLA VAGINALIS, DNA PROBE Negative NEGATIVE [facility] Comment on above: for Gardnerella vagi nalis Interpretation and review of laboratory results Abnormal [facility] Source .VAGINAL SWAB [facility] Trichomonas Vaginalis DNA Negative NEGATIVE [facility] Comment on above: for Trichomonas Vagi nalis [facility] CREATININEon 05-23-2022 Creatinine [Mass/Vol] 0.65 mg/dL Normal 0.55-1.02 [facility] Comment on above: Performed By: #### V ITAD #### [facility] [address] [address] [address] Sveta Velasquez EGFR-AF [place] >60 Normal >=60 [facility] Comment on above: Performed By: #### V ITAD #### [facility] [address] [address] [address] Sveta Velasquez EGFR-NON AF [place] >60 Normal >=60 [facility] Comment on above: Performed By: #### V ITAD #### [facility] [address] [address] [address] Sveta Velasquez MRI BRAIN WO W [...] by: ROCÍO REYES Date: 2022-05-23 10:26 Normal [facility] MRI CSPINE WO CONon 05-23-20 22 MRI [facility] WO CON EXAMINATION: MRI CSPINE WO CON [...] ROCÍO REYES Date: 2022-05-23 09:15 Normal [facility] CBC AUTO DIFFon 05-12-2022 BASO # 0.0 103/ul Normal 0.0-0.1 [facility] Comment on above: Performed By: #### M ISC #### [facility] [address] [place] [address] Dr. Sveta Velasquez Basophils/100 WBC (Bld) 0.4 % Normal 0.2-2.0 [facility] Comment on above: Performed By: #### M ISC #### [facility] [address] [place] [address] Dr. Sveta Velasquez EO # 0.1 103/ul Normal 0.0-0.7 [facility] Comment on above: Performed By: #### M ISC #### [facility] [address] [place] [address] Dr. Sveta Velasquez Eosinophils/100 WBC (Bld) 1.0 % Normal 0.9-7.0 [facility] Comment on above: Performed By: #### M ISC #### [facility] [address] [place] [address] Dr. Sveta Velasquez Erythrocyte distribution width (RBC) [Ratio] 12.8 % Normal 11.0-15.0 [facility] Comment on above: Performed By: #### M ISC #### [facility] [address] [address] [address] Sveta Velasquez Hematocrit (Bld) [Volume fraction] 43.6 % Normal 36.0-48.0 [facility] Comment on above: Performed By: #### M ISC #### [facility] [address] [place] [address] Dr. Sveta Velasquez Hemoglobin (Bld) [Mass/Vol] 15.9 g/dL Normal 12.0-16.0 [facility] Comment on above: Performed By: #### M ISC #### [facility] [address] [address] [address] Sveta Velasquez IG # 0.04 10e3/ul Critically high 0.00-0.03 [facility] Comment on above: Performed By: #### M ISC #### [facility] [address] [place] [address] Dr. Sveta Velasquez IG % 0.4 % Normal 0.0-0.5 [facility] Comment on above: Performed By: #### M ISC #### [facility] [address] [address] [address] Sveta Velasquez LYMPH # 2.5 103/ul Normal 1.2-3.8 [facility] Comment on above: Performed By: #### M ISC #### [facility] [address] [place] [address] Dr. Sveta Velasquez Lymphocytes/100 WBC (Bld) 26.6 % Normal 20.5-60.0 [facility] Comment on above: Performed By: #### M ISC #### [facility] [address] [place] [address] Dr. Sveta Velasquez MANUAL DIFF REQ NO Normal [facility] Comment on above: Performed By: #### M ISC #### [facility] [address] [place] [address] Dr. Sveta Velasquez MCH (RBC) [Entitic mass] 33.0 pg Normal 26.7-34.0 [facility] Comment on above: Performed By: #### M ISC #### [facility] [address] [address] [address] Sveta Velasquez MCHC (RBC) [Mass/Vol] 36.5 g/dL Critically high 29.9-35.2 [facility] Comment on above: Performed By: #### M ISC #### [facility] [address] [address] [address] Sveta Velasquez MCV (RBC) [Entitic vol] 90.5 fL Normal 81.0-99.0 [facility] Comment on above: Performed By: #### M ISC #### [facility] [address] [address] [address] Sveta Velasquez MONO # 0.5 103/ul Normal 0.3-0.8 [facility] Comment on above: Performed By: #### M ISC #### [facility] [address] [place] [address] Dr. Sveta Velasquez Monocytes/100 WBC (Bld) 5.1 % Normal 1.7-12.0 [facility] Comment on above: Performed By: #### M ISC #### [facility] [address] [address] [address] Sveta Velasquez NEUT # 6.2 103/ul Normal 1.4-6.5 [facility] Comment on above: Performed By: #### M ISC #### [facility] [address] [place] [address] Dr. Sveta Velasquez Neutrophils/100 WBC (Bld) 66.5 % Normal 43.0-75.0 [facility] Comment on above: Performed By: #### M ISC #### [facility] [address] [address] [address] Sveta Velasquez Platelet mean volume (Bld) [Entitic vol] 10.3 fL Normal 9.5-13.5 [facility] Comment on above: Performed By: #### M ISC #### [facility] [address] [address] [address] Sveta Velasquez PLT 214 103/ul Normal 150-450 [facility] Comment on above: Performed By: #### M ISC #### [facility] [address] [address] [address] Sveta Velasquez RBC 4.82 106/ul Normal 4.20-5.40 [facility] Comment on above: Performed By: #### M ISC #### [facility] [address] [address] [address] Sveta Velasquez WBC 9.4 103/ul Normal 4.0-11.0 [facility] Comment on above: Performed By: #### M ISC #### [facility] [address] [address] [address] Sveta Velasquez CRPon 05-12-2022 CRP [Mass/Vol] mg/L Normal <=1.0 [facility] Comment on above: Performed By: #### C RP #### [facility] [address] [address] [address] Sveta Velasquez XR CHEST 1 Von [...] by: ROCÍO SHELLEY Date: 2022-05-12 17:18 Normal [facility] US CAROTID ART BILon 022 US CAROTID ART PAU EXAMINATION: US [...] LA MANRIQUE Date: 2022-05-02 11:12 Normal [facility] MRI Foot w/o + w/ Righton [...] by Rashel Guerrero on 04/25/2022 1247 Normal [facility] Albumin [Mass/volume] in Ser um or PlasmaOrdered By: Marito Villalobos on 04-13-2022 Albumin [Mass/Vol] 4.4 g/dL 3.2-5.5 [facility] C-Reactive Proteinon 022 C-Reactive Protein 0.6 mg/dL Normal 0.0-1.0 [facility] Comment on above: Result Comment: PERF ORMED BY: [place] [address] PATHOLOGIST [employer]UE [employer]AB[employer] JOSH MESSINA M.D. Performed By: #### C KMB, HS TROP, CK, CMP, CRP, PHENY #### [facility] [address] CBC AUTO DIFFon 04-13-2022 BASO # 0.1 103/ul Normal 0.0-0.1 [facility] Comment on above: Performed By: #### M ISC #### [facility] [address] [place] [address] Dr. Sveta Velasquez Basophils/100 WBC (Bld) 0.6 % Normal 0.2-2.0 [facility] Comment on above: Performed By: #### M ISC #### [facility] [address] [address] [address] Sveta Velasquez EO # 0.2 103/ul Normal 0.0-0.7 [facility] Comment on above: Performed By: #### M ISC #### [facility] [address] [place] [address] Dr. Sveta Velasquez Eosinophils/100 WBC (Bld) 1.9 % Normal 0.9-7.0 [facility] Comment on above: Performed By: #### M ISC #### [facility] [address] [place] [address] Dr. Sveta Velasquez Erythrocyte distribution width (RBC) [Ratio] 12.7 % Normal 11.0-15.0 [facility] Comment on above: Performed By: #### M ISC #### [facility] [address] [place] [address] Dr. Sveta Velasquez Hematocrit (Bld) [Volume fraction] 45.0 % Normal 36.0-48.0 [facility] Comment on above: Performed By: #### M ISC #### [facility] [address] [place] [address] Dr. Sveta Velasquez Hemoglobin (Bld) [Mass/Vol] 16.9 g/dL Critically high 12.0-16.0 [facility] Comment on above: Performed By: #### M ISC #### [facility] [address] [place] [address] Dr. Sveta Velasquez IG # 0.03 10e3/ul Normal 0.00-0.03 [facility] Comment on above: Performed By: #### M ISC #### [facility] [address] [place] [address] Dr. Sveta Velasquez IG % 0.3 % Normal 0.0-0.5 [facility] Comment on above: Performed By: #### M ISC #### [facility] [address] [place] [address] Dr. Sveta Velasquez LYMPH # 3.5 103/ul Normal 1.2-3.8 [facility] Comment on above: Performed By: #### M ISC #### [facility] [address] [place] [address] Dr. Sveta Velasquez Lymphocytes/100 WBC (Bld) 39.9 % Normal 20.5-60.0 [facility] Comment on above: Performed By: #### M ISC #### [facility] [address] [place] [address] Dr. Sveta Velasquez MANUAL DIFF REQ NO Normal [facility] Comment on above: Performed By: #### M ISC #### [facility] [address] [place] [address] Dr. Sveta Velasquez MCH (RBC) [Entitic mass] 33.7 pg Normal 26.7-34.0 [facility] Comment on above: Performed By: #### M ISC #### [facility] [address] [place] [address] Dr. Sveta Velasquez MCHC (RBC) [Mass/Vol] 37.5 g/dL Critically high 29.9-35.2 [facility] Comment on above: Performed By: #### M ISC #### [facility] [address] [place] [address] Dr. Sveta Velasquez MCV (RBC) [Entitic vol] 89.6 fL Normal 81.0-99.0 [facility] Comment on above: Performed By: #### M ISC #### [facility] [address] [place] [address] Dr. Sveta Velasquez MONO # 0.6 103/ul Normal 0.3-0.8 [facility] Comment on above: Performed By: #### M ISC #### [facility] [address] [place] [address] Dr. Sveta Velasquez Monocytes/100 WBC (Bld) 6.3 % Normal 1.7-12.0 [facility] Comment on above: Performed By: #### M ISC #### [facility] [address] [place] [address] Dr. Sveta Velasquez NEUT # 4.5 103/ul Normal 1.4-6.5 [facility] Comment on above: Performed By: #### M ISC #### [facility] [address] [place] [address] Dr. Sveta Velasquez Neutrophils/100 WBC (Bld) 51.0 % Normal 43.0-75.0 [facility] Comment on above: Performed By: #### M ISC #### [facility] [address] [address] [address] Sveta Velasquez Platelet mean volume (Bld) [Entitic vol] 10.2 fL Normal 9.5-13.5 [facility] Comment on above: Performed By: #### M ISC #### [facility] [address] [address] [address] Sveta Velasquez PLT 211 103/ul Normal 150-450 [facility] Comment on above: Performed By: #### M ISC #### [facility] [address] [address] [address] Sveta Velasquez RBC 5.02 106/ul Normal 4.20-5.40 [facility] Comment on above: Performed By: #### M ISC #### [facility] [address] [address] [address] Sveta Velasquez WBC 8.9 103/ul Normal 4.0-11.0 [facility] Comment on above: Performed By: #### M ISC #### [facility] [address] [address] [address] HEAD WO CONon [...] LUZ HEREDIA Date: 2022-04-13 01:36 Normal [facility] Comprehensive Metabolic Pane bradley 04-13-2022 Albumin [Mass/Vol] 4.4 g/dL Normal 3.2-5.5 [facility] Comment on above: Performed By: #### C KMB, HS TROP, CK, CMP, CRP, PHENY #### [facility] [address] Albumin/Globulin [Mass ratio] 1.4 {ratio} Normal [facility] Comment on above: Performed By: #### C KMB, HS TROP, CK, CMP, CRP, PHENY #### [facility] [address] ALP [Catalytic activity/Vol] 97 U/L High 32-92 [facility] Comment on above: Performed By: #### C KMB, HS TROP, CK, CMP, CRP, PHENY #### [facility] [address] [place] [address] [place] ALT [Catalytic activity/Vol] 26 U/L Normal 10-60 [facility] Comment on above: Performed By: #### C KMB, HS TROP, CK, CMP, CRP, PHENY #### [facility] [address] [place] [address] [place] AST [Catalytic activity/Vol] 29 U/L Normal 10-42 [facility] Comment on above: Performed By: #### C KMB, HS TROP, CK, CMP, CRP, PHENY #### [facility] [address] [place] [address] [place] Bilirubin [Mass/Vol] 0.7 mg/dL Normal 0.3-1.2 [facility] Comment on above: Performed By: #### C KMB, HS TROP, CK, CMP, CRP, PHENY #### [facility] [address] [place] [address] [place] Calcium [Mass/Vol] 10.3 mg/dL High 8.2-10.2 [facility] Comment on above: Performed By: #### C KMB, HS TROP, CK, CMP, CRP, PHENY #### [facility] [address] Chloride [Moles/Vol] 92 mmol/L Low 95-114 [facility] Comment on above: Performed By: #### C KMB, HS TROP, CK, CMP, CRP, PHENY #### [facility] [address] CO2 [Moles/Vol] 21.3 mmol/L Low 22.0-30.0 [facility] Comment on above: Performed By: #### C KMB, HS TROP, CK, CMP, CRP, PHENY #### [address] Creatinine [Mass/Vol] 0.72 mg/dL Normal 0.44-1.03 [facility] Comment on above: Performed By: #### C KMB, HS TROP, CK, CMP, CRP, PHENY #### [address] Estimated GFR ( Katerina > 60 [facility] Comment on above: Result Comment: GFR estimated reference range: According to KDOQI guidelines, <60 ml/min/1.73m2 is sufficient to diagnose a patient with chronic kidney disease. Performed By: #### C KMB, HS TROP, CK, CMP, CRP, PHENY #### [address] Estimated GFR (Non- Am > 60 [facility] Comment on above: Performed By: #### C KMB, HS TROP, CK, CMP, CRP, PHENY #### [address] Globulin (S) [Mass/Vol] 3.1 g/dL [facility] Comment on above: Performed By: #### C KMB, HS TROP, CK, CMP, CRP, PHENY #### [address] Glucose [Mass/Vol] 407 mg/dL High 70-100 [facility] Comment on above: Result Comment: [facility] Glucose Reference Range is dependent on time and content of last meal. Glucose of more than 200 mg/dL in a nonstressed, ambulatory subject supports the diagnosis of Diabetes Mellitus. ADA recommended reference range Performed By: #### C KMB, HS TROP, CK, CMP, CRP, PHENY #### [facility] [address] Potassium [Moles/Vol] 4.4 mmol/L Normal 3.5-5.1 [facility] Comment on above: Performed By: #### C KMB, HS TROP, CK, CMP, CRP, PHENY #### [facility] [address] Protein [Mass/Vol] 7.5 g/dL Normal 6.1-7.9 [facility] Comment on above: Performed By: #### C KMB, HS TROP, CK, CMP, CRP, PHENY #### [facility] [address] Sodium [Moles/Vol] 134 mmol/L Low 136-146 [facility] Comment on above: Performed By: #### C KMB, HS TROP, CK, CMP, CRP, PHENY #### [facility] [address] [place] [address] [place] Urea nitrogen [Mass/Vol] 15 mg/dL Normal 9-23 [facility] Comment on above: Performed By: #### C KMB, HS TROP, CK, CMP, CRP, PHENY #### [facility] [address] [place] [id number] [place] Creatine Kinaseon 04-13-2022 CK [Catalytic activity/Vol] 55 U/L Normal 22-269 [facility] Comment on above: Performed By: #### C K, CKMB, HS TROP #### [facility] [address] [place] [id number] [place] CK [Catalytic activity/Vol] 23 U/L Normal 22-269 [facility] Comment on above: Performed By: #### C K, HS TROP, CKMB #### [facility] [address] CK [Catalytic activity/Vol] 81 U/L Normal [facility] Comment on above: Performed By: #### C KMB, HS TROP, CK, CMP, CRP, PHENY #### [address] Creatine kinase [Enzymatic a ctivity/volume] in Serum or PlasmaOrdered By: Marito Villalobos on 04-13-2022 CK [Catalytic activity/Vol] 55 U/L [facility] Creatinine Kinase MBon 04-13 CK.MB [Mass/Vol] 1.1 ng/mL Normal 0.6-6.3 [facility] Comment on above: Performed By: #### C K, CKMB, HS TROP #### [address] CKMB Relative Index 2.0 % Normal 0.00-2.50 [facility] Comment on above: Performed By: #### C K, CKMB, HS TROP #### [address] CK.MB [Mass/Vol] 1.1 ng/mL Normal 0.6-6.3 [facility] Comment on above: Performed By: #### C KMB, HS TROP, CK, CMP, CRP, PHENY #### [address] CKMB Relative Index 4.7 % High 0.00-2.50 [facility] Comment on above: Performed By: #### C KMB, HS TROP, CK, CMP, CRP, PHENY #### [address] CK.MB [Mass/Vol] 1.3 ng/mL Normal 0.6-6.3 [facility] Comment on above: Performed By: #### C KMB, HS TROP, CK, CMP, CRP, PHENY #### [address] CKMB Relative Index 1.6 % Normal 0.00-2.50 [facility] Comment on above: Performed By: #### C KMB, HS TROP, CK, CMP, CRP, PHENY #### [facility] [address] Creatinine and Glomerular fi ltration rate.predicted panel (S/P/Bld)Ordered By: Marito Villalobos on 04-13-2022 Creatinine [Mass/Vol] 0.72 mg/dL 0.44-1.03 [facility] Estimated glomerular filtrat ion rate (GFR) non- AmericanOrdered By: Marito Villalobos on 04-13-2022 GFR/1.73 sq M.predicted among non-blacks MDRD (S/P/Bld) [Vol rate/Area] > 60 mL/Min [facility] Globulin Calc (S) [Mass/Vol] Ordered By: Marito Villalobos on 04-13-2022 Globulin (S) [Mass/Vol] 3.1 g/dL [facility] LAB TESTINGon 04-13-2022 RECV HEADER SEE SCANNED REPORT IN HPF Normal [facility] Comment on above: Performed By: #### M ISC #### [facility] [address] [place] [address] Dr. Sveta Velasquez REV FROM REF LAB 04/13/2022 [facility] Comment on above: Performed By: #### M ISC #### [facility] [address] [address] [address] Sveta Velasquez SENT TO REF LAB 04/13/2022 [facility] Comment on above: Result Comment: TO F [facility] Performed By: #### M ISC #### [facility] [address] [address] [address] Sveta Velasquez RECV HEADER SEE SCANNED REPORT IN HPF [facility] Comment on above: Performed By: #### M ISC #### [facility] [address] [address] [address] Sveta Velasquez REV FROM REF LAB 04/13/2022 [facility] Comment on above: Performed By: #### M ISC #### [facility] [address] [place] [address] Dr. Sveta Velasquez SENT TO REF LAB 04/13/2022 [facility] Comment on above: Result Comment: TO [facility] Performed By: #### M ISC #### [facility] [address] [place] [address] Dr. Sveta GRAY HEADER SEE SCANNED REPORT IN HPF Normal [facility] Comment on above: Performed By: #### M ISC #### [facility] [address] [place] [address] Dr. Sveta Velasquez REV FROM REF LAB 04/13/2022 [facility] Comment on above: Performed By: #### M ISC #### [facility] [address] [place] [address] Dr. Sveta Velasquez SENT TO REF LAB 04/13/2022 [facility] Comment on above: Result Comment: TO [facility] Performed By: #### M ISC #### [facility] [address] [place] [address] Dr. Sveta GRAY HEADER SEE SCANNED REPORT IN HPF Normal [facility] Comment on above: Performed By: #### M ISC #### [facility] [address] [place] [address] Dr. Sveta Velasquez REV FROM REF LAB 04/13/2022 [facility] Comment on above: Performed By: #### M ISC #### [facility] [address] [place] [address] Dr. Sveta Velasquez SENT TO REF LAB 04/13/2022 [facility] Comment on above: Result Comment: TO [facility] Performed By: #### M ISC #### [facility] [address] [place] [address] Dr. Sveta GRAY HEADER SEE SCANNED REPORT IN HPF Normal [facility] Comment on above: Performed By: #### V ITAD #### [facility] [address] [place] [address] Dr. Sveta Velasquez REV FROM REF LAB 04/13/2022 [facility] Comment on above: Performed By: #### V ITAD #### [facility] [address] [address] [address] Sveta Velasquez SENT TO REF LAB 04/13/2022 [facility] Comment on above: Result Comment: [place] [facility] Performed By: #### V ITAD #### [facility] [address] [address] [address] Sveta Velasquez RECV HEADER SEE SCANNED REPORT IN HPF [facility] Comment on above: Performed By: #### M ISC #### [facility] [address] [address] [address] Sveta Velasquez REV FROM REF LAB 04/13/2022 [facility] Comment on above: Performed By: #### M ISC #### [facility] [address] [address] [address] Sveta Velasquez SENT TO REF LAB 04/13/2022 [facility] Comment on above: Result Comment: [facility] Performed By: #### M ISC #### [facility] [address] [place] [address] Dr. Sveta Velasquez No Panel InformationOrdered By: Marito Villalobos on 04-13-2022 Estimated GFR () > 60 mL/Min [facility] Comment on above: GFR estimated refere nce range: According to KDOQI guidelines, <60 ml/min/1.73m2 is sufficient to diagnose a patient with chronic kidney disease. Pharmacy Creatinine Clearance (Chem N/A [facility] Phenytoin (Dilantin)on 04-13 Phenytoin [Mass/Vol] 8.2 ug/mL Low 10.0-20.0 [facility] Comment on above: Order Comment: Date of last dose?: [id number] Time of last dose?: 399 Result Comment: Last dose: - PERFORMED BY: [place] [address] PATHOLOGIST BLUE CRAB[employer] JOSH MESSINA M.D. Performed By: #### C KMB, HS TROP, CK, CMP, CRP, PHENY #### [facility] [address] [place] [address] Protein [Mass/volume] in Ser um or PlasmaOrdered By: Marito Villalobos on 04-13-2022 Protein [Mass/Vol] 7.5 g/dL 6.1-7.9 [facility] SED RATE WESTERGRENon 2021 SED RATE 17 mm/hr Normal <=30 [facility] Comment on above: Performed By: #### S EDR #### [facility] [address] [address] [address] Sveta Velasquez Serum or plasma C reactive p rotein measurement (mass/volume)Ordered By: Marito Villalobos on 04-13-2022 CRP [Mass/Vol] 0.6 mg/dL 0.0-1.0 [facility] Serum or plasma alanine jerez otransferase measurement without P-5'-P (enzymatic activiOrdered By: Marito Villalobos on 04-13-2022 ALT No additional P-5'-P [Catalytic activity/Vol] 26 U/L 10-60 [facility] Serum or plasma albumin/glob ulin mass ratioOrdered By: Marito Villalobos on 04-13-2022 Albumin/Globulin [Mass ratio] 1.4 {ratio} [facility] Serum or plasma alkaline kat sphatase measurement (enzymatic activity/volume)Ordered By: Marito Villalobos on 04-13-2022 ALP [Catalytic activity/Vol] 97 U/L 32-92 [facility] Serum or plasma aspartate am inotransferase measurement (enzymatic activity/volume)Ordered By: Marito Villalobos on 04-13-2022 AST [Catalytic activity/Vol] 29 U/L 10-42 [facility] Serum or plasma calcium hoa urement (mass/volume)Ordered By: Marito Villalobos on 04-13-2022 Calcium [Mass/Vol] 10.3 mg/dL 8.2-10.2 [facility] Serum or plasma chloride kilo surement (moles/volume)Ordered By: Marito Villalobos on 04-13-2022 Chloride [Moles/Vol] 92 mmol/L 95-114 [facility] Serum or plasma creatine kin ase MB (CKMB)/total creatine kinase (CK) ratio by calculaOrdered By: Marito Villalobos on 04-13-2022 CK.MB Calc [Catalytic fraction] 2.0 % 0.00-2.50 [facility] Serum or plasma creatine kin ase MB measurement (mass/volume)Ordered By: Marito Villalobos on 04-13-2022 CK.MB [Mass/Vol] 1.1 ng/mL 0.6-6.3 [facility] Serum or plasma glucose hoa urement (mass/volume)Ordered By: Marito Villalobos on 04-13-2022 Glucose [Mass/Vol] 407 mg/dL 70-100 [facility] Comment on above: ADA recommended refe rence range Random Glucose Reference Range is dependent on time and content of last meal. Glucose of more than 200 mg/dL in a nonstressed, ambulatory subject supports the diagnosis of Diabetes Mellitus. Serum or plasma phenytoin me asurement (mass/volume)Ordered By: Marito Villalobos on 04-13-2022 Phenytoin [Mass/Vol] 8.2 ug/mL 10.0-20.0 [facility] Comment on above: Last dose: - Serum or plasma potassium me asurement (moles/volume)Ordered By: Marito Villalobos on 04-13-2022 Potassium [Moles/Vol] 4.4 mmol/L 3.5-5.1 [facility] Serum or plasma sodium measu rement (moles/volume)Ordered By: Marito Villalobos on 04-13-2022 Sodium [Moles/Vol] 134 mmol/L 136-146 [facility] Serum or plasma total biliru bin measurement (mass/volume)Ordered By: Marito Villalobos on 04-13-2022 Bilirubin [Mass/Vol] 0.7 mg/dL 0.3-1.2 [facility] Serum or plasma total carbon dioxide measurement (moles/volume)Ordered By: Marito Villalobos on 04-13-2022 CO2 [Moles/Vol] 21.3 mmol/L 22.0-30.0 [facility] Serum or plasma urea nitroge n measurement (mass/volume)Ordered By: Marito Villalobos on 04-13-2022 Urea nitrogen [Mass/Vol] 15 mg/dL 9-23 [facility] Troponin I High Sensitivityo n 04-13-2022 Troponin I High Sensitivity < 3 Normal 0-15 [facility] Comment on above: Result Comment: PERF ORMED BY: [place] [address] PATHOLOGIST BL[employer] JOSH MESSINA M.D. Performed By: #### C K, CKMB, HS TROP #### [facility] [address] [place] [address] [place] Troponin I High Sensitivity 3 pg/mL Normal 0-15 [facility] Comment on above: Result Comment: PERF ORMED BY: [place] [address] PATHOLOGIST BL[employer] CRABBER JOSH MESSINA M.D. Performed By: #### C KMB, HS TROP, CK, CMP, CRP, PHENY #### [facility] [address] [place] [address] [place] Troponin I High Sensitivity 3 pg/mL Normal 0-15 [facility] Comment on above: Result Comment: PERF ORMED BY: [place] [address] PATHOLOGIST BLUE CRABBER JOSH MESSINA M.D. Performed By: #### C KMB, HS TROP, CK, CMP, CRP, PHENY #### [facility] [address] [place] [address] [place] Troponin I.cardiac [Mass/vol ume] in Serum or Plasma by High sensitivity methodOrdered By: Marito Villalobos on 04-13-2022 Troponin I.cardiac High sensitivity method [Mass/Vol] < 3 pg/mL 0-15 [facility] Ambulatory Visit Summaryon 0 03-29-2022 Ambulatory Visit Summary KRISTIN NULL :1960 Visit Date:03/29/2022 Ambulatory Visit Instructions Your Care Team Attending Physician - GLADYS NAZARIO, Luz Juarez Primary Care Physician - Lili NAZARIO, Niki This Is Your Medications List Contact prescribing physician if questions or concerns clonazepam (ClonazePAM 0.5 mg Tab) escitalopram (Lexapro 10 mg Tab) fluticasone/umeclidi nium/vilanterol (Trelegy Ellipta 100 mcg-62.5 mcg-25 mcg inhalation powder) gabapentin (gabapentin 800 mg Tab) mometasone nasal (Nasonex 50 mcg/inh [place]) phenytoin (Dilantin 100 mg Cap-ER) phenytoin (Dilantin [...] Unchanged mometasone nasal (Nasonex 50 mcg/ inh [place]) 1 Sprays Nasal Inhalation 2 times a [...] syndrome Parathyroid adenoma Temporal lobe epilepsy Normal [facility] Physician Referralon 022 Physician Referral [id number] #[id number] Normal [facility] [id number] 02-09-2021 SARS-CoV-2 Normal [facility] Comment on above: Performed By: #### C OVID #### [facility] [address], [place] [id number] Machine Wedger: Chavez Rivera MD [address] [place] [address] Machine Wedger: Kenyon Hewitt MD SARS-CoV-2 Not Detected [facility] Comment on above: Result Comment: The [...] this assay. Fact sheet for Healthcare Providers: https://www.fda.gov/media/762197/download Fact sheet for Patients: https://www.fda.gov/media/686535/download METHODOLOGY: RT-PCR Performed By: #### C OVID #### [facility] [address] [place] [address] Machine Wedger: Chavez Rivera MD [facility] [address] [place], [place] [id number] Machine Wedger: Kenyon Hewitt MD [id number] 02-08-2021 SARS-CoV-2 Source .NASOPHARYNGEAL SWAB Normal [facility] Comment on above: Performed By: #### C OVID #### [facility] [address] [place], [place] [id number] Machine Wedger: Chavez Rivera MD [facility] [address] [place], [place] [id number] Machine Wedger: Kenyon Hewitt MD Vital Signs Date Time Vital Sign Value Performing Clinician Facility 09-23-2024 15:07-0500 Body mass index (BMI) [Ratio] 37.11 kg/m2 Florin Burgos MD Work Phone: [facility] 09-23-2024 15:07-0500 Body weight 86.18 kg Florin Burgos MD Work Phone: [facility] 09-23-2024 15:07-0500 Diastolic blood pressure 89 mm[Hg] Florin Burgos MD Work Phone: [facility] 09-23-2024 15:07-0500 Heart rate 75 /min Florin Burgos MD Work Phone: [facility] 09-23-2024 15:07-0500 Systolic blood pressure 168 mm[Hg] Florin Burgos MD Work Phone: [facility] 07-05-2024 15:42-0400 Diastolic blood pressure 80 mm[Hg] Florin Burgos MD Work Phone: [facility] 07-05-2024 15:42-0400 Systolic blood pressure 130 mm[Hg] Florin Burgos MD Work Phone: [facility] 12-25-2023 15:49-0500 Body mass index (BMI) [Ratio] 37.11 kg/m2 Florin Burgos MD Work Phone: [facility] 12-25-2023 15:49-0500 Body weight 86.18 kg Florin Burgos MD Work Phone: [facility] 12-25-2023 15:49-0500 Diastolic blood pressure 90 mm[Hg] Florin Burgos MD Work Phone: [facility] 12-25-2023 15:49-0500 Systolic blood pressure 147 mm[Hg] Florin Burgos MD Work Phone: [facility] 11-06-2023 13:45-0500 Body temperature 97.7 [degF] Endy Cruz MD Work Phone: [employer] 11-06-2023 13:45-0500 Diastolic blood pressure 64 mm[Hg] Endy Cruz MD Work Phone: [employer] [facility] 11-06-2023 13:45-0500 Heart rate 77 /min Endy Cruz MD Work Phone: [employer] 11-06-2023 13:45-0500 Respiratory rate 16 /min Endy Cruz MD Work Phone: [employer] 11-06-2023 13:45-0500 SaO2% (BldA) [Mass fraction] 93 % Endy Cruz MD Work Phone: [employer] 11-06-2023 13:45-0500 Systolic blood pressure 120 mm[Hg] Endy Cruz MD Work Phone: [employer] 11-06-2023 11:03-0500 Body height 152.4 cm Endy Cruz MD Work Phone: [employer] 11-06-2023 11:03-0500 Body mass index (BMI) [Ratio] 37.11 kg/m2 Endy Cruz MD Work Phone: [employer] 11-06-2023 11:03-0500 Body weight 86.18 kg Endy Cruz MD Work Phone: [employer] 10-29-2022 12:20-0500 Respiratory rate 18 /min Endy Cruz MD Work Phone: [facility] [employer] 10-29-2022 11:24-0500 Body temperature 98.01 [degF] Endy Cruz MD Work Phone: [facility] [employer] 10-29-2022 11:24-0500 Diastolic blood pressure 82 mm[Hg] Endy Cruz MD Work Phone: [facility] [employer] 10-29-2022 11:24-0500 Heart rate 88 /min Endy Cruz MD Work Phone: [employer] 10-29-2022 11:24-0500 SaO2% (BldA) [Mass fraction] 93 % Endy Cruz MD Work Phone: [facility] [employer] 10-29-2022 11:24-0500 Systolic blood pressure 143 mm[Hg] Endy Cruz MD Work Phone: [facility] [employer] 10-28-2022 12:15-0500 Body height 152.4 cm Endy Cruz MD Work Phone: [employer] 10-28-2022 12:15-0500 Body mass index (BMI) [Ratio] 33.98 kg/m2 Endy Cruz MD Work Phone: [facility] [employer] 10-28-2022 12:15-0500 Body weight 78.93 kg Endy Cruz MD Work Phone: [facility] [employer] 09-04-2022 09:10-0400 Respiratory rate 17 /min Endy Cruz MD Work Phone: [employer] 09-04-2022 08:30-0400 Body temperature 98.71 [degF] Endy Cruz MD Work Phone: [employer] 09-04-2022 08:30-0400 Diastolic blood pressure 84 mm[Hg] Endy Cruz MD Work Phone: [employer] 09-04-2022 08:30-0400 Heart rate 107 /min Endy rCuz MD Work Phone: [facility] [employer] 09-04-2022 08:30-0400 SaO2% (BldA) [Mass fraction] 96 % Endy Cruz MD Work Phone: [facility] [employer] 09-04-2022 08:30-0400 Systolic blood pressure 149 mm[Hg] Endy Cruz MD Work Phone: [facility] [employer] 09-02-2022 08:03-0400 Body height 152.4 cm Endy Cruz MD Work Phone: [facility] [employer] 09-02-2022 08:03-0400 Body mass index (BMI) [Ratio] 32.03 kg/m2 Endy Cruz MD Work Phone: [facility] [employer] 09-02-2022 08:03-0400 Body weight 74.39 kg Endy Cruz MD Work Phone: [facility] [employer] 08-28-2022 10:16-0400 Body height 152.4 cm Stvz 1 [facility] [employer] 08-28-2022 10:16-0400 Body mass index (BMI) [Ratio] 32.03 kg/m2 Stvz 1 [facility] [employer] 08-28-2022 10:16-0400 Body temperature 97.5 [degF] Stvz 1 [facility] [employer] 08-28-2022 10:16-0400 Body weight 74.39 kg Stvz 1 [facility] [employer] 08-28-2022 10:16-0400 Diastolic blood pressure 77 mm[Hg] Stvz 1 [facility] [employer] 08-28-2022 10:16-0400 Heart rate 78 /min Stvz 1 [facility] [employer] [facility] [employer] 08-28-2022 10:16-0400 Respiratory rate 16 /min Stvz 1 [facility] [employer] 08-28-2022 10:16-0400 SaO2% (BldA) [Mass fraction] 96 % Stvz 1 [facility] [employer] 08-28-2022 10:16-0400 Systolic blood pressure 117 mm[Hg] Stvz 1 [employer] [facility] [employer] 06-17-2022 17:29-0400 Diastolic blood pressure 93 mm[Hg] Seamus Handy MD [facility] [facility] [employer] 06-17-2022 17:29-0400 Heart rate 97 /min Seamus Handy MD [facility] SECShoulder Tap [facility] [employer] 06-17-2022 17:29-0400 Respiratory rate 18 /min Seamus Handy MD [facility] [employer] 06-17-2022 17:29-0400 SaO2% (BldA) [Mass fraction] 97 % Seamus Handy MD [facility] [employer] [facility] [employer] 06-17-2022 17:29-0400 Systolic blood pressure 160 mm[Hg] Seamus Handy MD [facility] [employer] 06-17-2022 16:42-0400 Body height 152.4 cm Seamus Handy MD [facility] [employer] [facility] [employer] 06-17-2022 16:42-0400 Body mass index (BMI) [Ratio] 31.25 kg/m2 Seamus Handy MD [facility] [employer] [facility] [employer] 06-17-2022 16:42-0400 Body temperature 98.6 [degF] Seamus Handy MD [facility] [employer] 06-17-2022 16:42-0400 Body weight 72.58 kg Seamus Handy MD [facility] [employer] [facility] [employer] 03-29-2022 13:41-0400 Blood Pressure Location Luz GRAHAM [facility] [place] 03-29-2022 13:41-0400 Diastolic blood pressure 84 mm[Hg] Luz GRAHAM General Surgery [place] 03-29-2022 13:41-0400 Heart rate 84 /min Luz GRAHAM [facility] [place] 03-29-2022 13:41-0400 Respiratory rate 16 /min Luz GRAHAM [facility] [place] 03-29-2022 13:41-0400 Systolic blood pressure 128 mm[Hg] Luz GRAHAM [facility] Surgery [place] 02-12-2021 13:40-0400 Body Temperature 97.3 [degF] Endy PulidoEmbarke Phone: 02-12-2021 13:40-0400 BP Diastolic 99 mm[Hg] Endy PulidoCHROMAom Work Phone: 02-12-2021 13:40-0400 BP Systolic 153 mm[Hg] Endy PulidoCHROMAom Work Phone: 02-12-2021 13:40-0400 Pulse (Heart Rate) 95 /min Endy PulidoEmbarke Phone: 02-12-2021 13:40-0400 Pulse Oximetry 94 % Endy PulidoEmbarke Phone: 02-12-2021 13:40-0400 Respiratory Rate 14 /min Endy PulidoEmbarke Phone: 02-12-2021 09:46-0400 BMI (Body Mass Index) 37.3 kg/m2 Endy PulidoEmbarke Phone: 02-12-2021 09:46-0400 Body weight 86.64 kg Endy PulidoEmbarke Phone: 02-12-2021 09:46-0400 Height 152.4 cm Endy PulidoEmbarke Phone: Encounters Encounter Date Encounter Type Care Provider Facility Start: 05-06-20[address] [facility] Start: 05-04-2025 End: 05-04-2025 Telephone encounter Gretchen Sal Work Phone: [facility] Start: 04-08-2025 ambulatory ROSALBA JoseOzzy LOMELIRoseline [facility] Start: 03-11-2025 ambulatory ROSALBA Jose. KELLYJUANRoseline [facility] Start: 03-02-2025 End: 03-02-2025 ambulatory FLORIN BURGOS Not Available Start: 03-02-2025 End: 03-02-2025 Office outpatient visit 25 minutes Florin Burgos MD Work Phone: [facility] Comment on above: Chronic insomnia; Focal epilepsy (CMS/HCC); Generalized seizure disorder (CMS/HCC); Seizure (CMS/HCC) Start: 03-02-2025 End: 03-02-2025 [employer]as[employer] Storage Systemscierra Burgos MD Work Phone: [facility] Start: 03-02-2025 End: 03-02-2025 [employer] Systemscierra Burogs MD Work Phone: [facility] Start: 02-25-2025 ambulatory ROSALBA Jose. YANII [facility] Start: 02-11-2025 ambulatory ROSALBA A. KELLYJUANI [facility] Start: 01-21-2025 ambulatory ROSALBA A. FROILANKASSIDYRoseline [facility] Start: 12-09-2024 ambulatory ROSALBA A. FROILANKASSIDYRoseline [facility] Start: 12-02-2024 End: 12-02-2024 ambulatory FLORIN BURGOS Not Available Start: 12-02-2024 End: 12-02-2024 Office outpatient visit 25 minutes Florin Burgos MD Work Phone: [facility] Comment on above: Cervical radiculopat hy (Primary Dx); Complex partial seizure with impairment of consciousness (CMS/HCC); Obstructive sleep apnea syndrome; Seizure (CMS/HCC); Temporal lobe epilepsy (CMS/HCC) Start: 12-02-2024 End: 12-02-2024 BlasKickfirejamie Resolvercierra Burgos MD Work Phone: [facility] Start: 12-02-2024 End: 12-02-2024 Bamboo Resolverheet Florin Burgos MD Work Phone: [facility] Start: 11-19-2024 ambulatory ROSALBA Jose. YANII [facility] Start: 10-22-2024 ambulatory ROSALBA Jose. FROILANKASSIDYRoseline [facility] Start: 09-23-2024 End: 09-23-2024 Clinical Support Florin Burgos MD Work Phone: [facility] Comment on above: Other nerve root and plexus disorders (Primary Dx); Chronic insomnia; 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; Focal epilepsy (CMS/HCC); Trochanteric bursitis, right hip Start: 09-23-2024 End: 09-23-2024 Bamboo Resolverheet Florin Burgos MD Work Phone: [facility] Start: 09-23-2024 End: 09-23-2024 BamMosaic Storage Systemsheet Florin Burgos MD Work Phone: [facility] Start: 09-17-2024 End: 09-17-2024 Telephone encounter Florin Burgos MD Work Phone: [facility] Start: 09-17-2024 ambulatory ROSALBA A. YANII [facility] Start: 08-20-2024 ambulatory ROSALBA A. JG [facility] Start: 07-30-2024 ambulatory ROSALBA A. KELLYCKI [facility] Start: 07-05-2024 End: 07-05-2024 Office outpatient visit 25 minutes Florin Burgos MD Work Phone: [facility] Comment on above: Focal epilepsy (CMS/ HCC) (Primary Dx); Seizure disorder (CMS/HCC); Acute carpal tunnel syndrome of right wrist; Cervical radiculopathy; Complex partial seizure with impairment of consciousness (CMS/HCC) Start: 07-05-2024 End: 07-05-2024 ambulatory FLORIN BURGOS Not Available Start: 06-25-2024 End: 07-05-2024 Telephone encounter La Zurita DPM Work Phone: [facility] Comment on above: Advice Only Start: 06-25-2024 ambulatory ROSALBA GREGORIO [facility] Start: 06-15-2024 End: 06-15-2024 ambulatory LA ZURITA Not Available Start: 05-28-2024 ambulatory ROSALBA GREGORIO [facility] Start: 03-25-2024 End: 03-25-2024 ambulatory FLORIN BURGOS Not Available Start: 02-08-2024 End: 02-08-2024 Emergency department patient visit LUZ Sathl BRITANY [facility] Start: 12-25-2023 End: 12-25-2023 Office outpatient visit 25 minutes Florin Burgos MD Work Phone: [facility] Comment on above: Acute carpal tunnel syndrome of right wrist (Primary Dx); Seizure (CMS/HCC); Allodynia; Cervical radiculopathy; Complex partial seizure with impairment of consciousness (CMS/HCC) Start: 12-24-2023 Chart abstracting Florin saldivar MD Work Phone: [facility] 210 Start: 11-06-2023 End: 11-06-2023 ambulatory ENDY Seng [facility] Start: 11-06-2023 End: 11-06-2023 Subsequent hospital visit by physician Endy Cruz MD Work Phone: [facility] OR Comment on above: Acute postoperative pain (Primary Dx) Start: 08-18-2023 End: 08-18-2023 ambulatory ENDY Ellsworth [facility] Start: 08-05-2023 End: 08-10-2023 ambulatory ENDY Ellsworth [facility] Start: 08-05-2023 End: 08-10-2023 Encounter for other preprocedural examination ENDY Ellsworth [facility] Start: 03-11-2023 End: 03-12-[address] NIKI [...] Subsequent hospital visit by physician Juno Pat Rm 1 [facility] Pre-Admit Testing Start: 06-22-2022 End: 06-23-[address] NIKI PEARSON . Facility:[facility] Start: 06-17-2022 End: 06-17-2022 Emergency department patient visit Seamus Handy MD [facility] ED Comment on above: Yeast infection invo [...] encounter procedure MD Marito Villalobos Work Phone: [facility] Start: 04-13-2022 End: 04-13-[address] NIKI PEARSON . Facility:[facility] Start: 03-29-2022 End: 03-29-2022 Patient encounter procedure Luz GRAHAM General Surgery Nilbrianna/Myranda Sanchez Start: 03-20-2022 End: 03-21-[address] NIKI PEARSON . Facility: Start: 02-12-2021 End: 02-12-2021 Subsequent hospital visit by physician Endy Cruz Work Phone: [facility] OR Comment on above: Post-op pain (Primar y Dx) Start: 02-08-2021 End: 02-09-2021 Patient encounter procedure ENDY CRUZ [facility] Start: 02-08-2021 End: 02-08-2021 Subsequent hospital visit by physician Clive Hutsonid Screening Schedule [facility] Covid Screening Comment on [...] MD Work Phone: Start: 10-28-2022 Creatinine blood [place] y Balbir DO Work Phone: Start: 10-28-2022 [...] Work Phone: Start: 09-03-2022 SPECIMEN REJECTION Presley shmuel Cruz MD Work Phone: Start: 09-03-2022 Glucose blood reagent strip Endy Cruz MD Work Phone: Start: 09-02-2022 Glucose blood reagent strip Endy Cruz MD Work Phone: Start: 09-02-2022 RESPIRATORY CARE ASHLEY LUATION ONLY Tehresa Carvajal DO Work Phone: Start: 09-02-2022 Radex spine 1 view s pecify level Endy Cruz MD Work Phone: Start: 09-02-2022 End: 09-02-2022 Radex spine 1 view specify level Endy Cruz MD Work Phone: Start: 09-02-2022 End: 09-02-2022 CERVICAL LAMINECTOMY FUSION ANTERIOR Endy Cruz MD Work Phone: Start: 08-28-2022 Electrolyte panel Jorge l A Lynda MD Work Phone: Start: 08-28-2022 Ecg routine [...] x 2 Decompression of median nerve Luz GIMENEZL Endoscopy of vagina Luz GIMENEZL Excision of cyst Luz NIL L Comment on above: right dorsal foot History of spinal fusion Oliverio hael NILL Ligation of fallopian tube Farida GIMENEZL Lobectomy of brain Luz DIAZ Comment on above: right temporal Repair of long head of biceps brachii Luz GLADYS Repair of musculoten dinous cuff of shoulder Luz GRAHAM Repair of ulnar digital nerve Luz GRAHAM Sialendoscope (physi maritza object) Luz GRAHAM Plan of Treatment Date Care Activity Detail Author Start: 06-01-2025 End: 06-01-2025 Patient encounter procedure 06/01/2025 3:20 PM EDT Office Visit [facility] [address] [facility] [address] [place] [phone] Florin Burgos MD [address] [place] [address] [place] [address], [place] [address] [facility] Start: 03-02-2025 End: 03-02-2025 Patient encounter procedure 03/02/2025 3:20 PM EDT Office Visit [facility] [address] [facility] [address] [place] [address] Florin Burgos MD [address] [place] [address] [place] [address], [place] [address] [facility] Start: 12-02-2024 End: 12-02-2024 Clinical Support 12/02/2024 3:40 PM EST Clinical Support [facility] [address] [facility] [address] [place] [address] Florin Burgos MD [address] [place] [address] [place] [address], [place] [address] [facility] Start: 09-23-2024 End: 09-23-2024 Clinical Support [facility] Start: 08-05-2024 GFR test (Diabetes, CKD 3-4, OR last GFR 15-59) GFR test (Diabetes, CKD 3-4, OR last GFR 15-59) [facility] Start: 07-05-2024 End: 07-05-2024 Patient encounter procedure 07/05/2024 3:50 PM EDT Office Visit [facility] [address] [place] [phone] Florin Burgos MD [address] Dennis [address] [place] [id number] [facility] Start: 03-25-2024 End: 03-25-2024 Patient encounter procedure 03/25/2024 3:30 PM EDT Office Visit [facility] [address] [place] [phone] Florin Burgos MD [address] Dennis [address] [place] [address], [place] [address] [facility] Start: 12-25-2023 End: 12-25-2023 Patient encounter procedure 12/25/2023 3:40 PM EST Office Visit [facility] [address] [place] [phone] Florin Burgos MD [address] Dennis [address] [place] [address], [place] [address] [facility] Start: 11-06-2023 End: 11-06-2023 Neuroplasty &/transpos median nrv carpal tunne CARPAL TUNNEL RELEASE Right carpal tunnel syndrome 11/06/2023 12:39 PM [facility] Start: 06-10-2023 Influenza vaccination Flu vaccine (# 1) [facility] Start: 10-24-2022 Pneumococcal 0-64 ye ars Vaccine (2 - PPSV23 if available, else PCV20) Pneumococcal 0-64 years Vaccine (2 - PPSV23 if available, else PCV20) 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) 09/02/2022 8:40 AM EDT [facility] Start: 07-11-2022 Influenza vaccination Flu vaccine (# 1) [facility] [employer] Start: 06-10-2022 Influenza vaccination Flu vaccine (# 1) [facility] Start: 12-19-2021 Pneumococcal 65+ yea rs Vaccine (2 - PPSV23 or PCV20) Pneumococcal 65+ years Vaccine (2 - PPSV23 or PCV20) [facility] [employer] Start: 07-11-2021 Influenza vaccination Flu vacc ine (Season Ended) [email or web address] Phone: Start: 02-12-2021 End: 02-12-2021 Hospital Encounter [facility] OR Comment on above: KNEE ARTHROSCOPY WIT H MENISCECTOMY Start: 01-29-2021 Annual Wellness Visi t (AWV) Annual Wellness Visit (AWV) [facility] Start: 01-29-2021 End: 01-29-2022 COVID-19 COVID-19 Lab Routine Preop testing Expected: 01/29/2021, Expires: 01/29/2022 [email or web address] Phone: Comment on above: Expected: 01/29/2021 , Expires: 01/29/2022 Start: 07-16-2019 Screening for malign ant neoplasm of breast [facility] Start: 2018 Respiratory Syncytia l Virus (RSV) or age 60 yrs+ (1 - 1-dose 60+ series) Respiratory Syncytial Virus (RSV) or age 60 yrs+ (1 - 1-dose 60+ series) [facility] Start: 2013 Screening for osteoporosis DEXA (modify frequency per FRAX score) [facility] Start: 2008 Screening for malign ant neoplasm of breast Breast cancer screen [facility] Start: 2008 Screening for malign ant neoplasm of colon Colon cancer screen colonoscopy [email or web address] Phone: Start: 2008 Shingles Vaccine (1 of 2) Shingles Vaccine (1 of 2) [facility] Start: 2003 Screening for malign ant neoplasm of colon [facility] Start: 1998 Diabetes screen Diabetes screen [employer] Work Phone: Start: 1998 Lipid panel [facility] [employer] Start: 1993 Diabetes screen Diabetes screen [facility] [email or web address] Start: 1988 Screening for malign ant neoplasm of cervix [facility] Start: 1979 Screening for malign ant neoplasm of cervix [facility] [email or web address] Start: 1977 DTaP/Tdap/Td vaccine (1 - Tdap) DTaP/Tdap/Td vaccine (1 - Tdap) [facility] [email or web address] Start: 1976 Diabetic retinal exam Diabetic retin al exam [facility] [employer] Start: 1976 Glaucoma screening Diabetic retinal exam [facility] [email or web address] Start: 1976 Hepatitis C screening Hepatitis C sc reen [facility] [email or web address] Start: 1976 Urine screening for protein [facility] [email or web address] Start: 1974 COVID-19 Vaccine (1) COVID-19 Vaccin e (1) [email or web address] Phone: Start: 1973 HIV screening HIV screen [facility] [email or web address] Start: 1970 Depression Screen Depression Screen [facility] [email or web address] Start: 1968 Diabetic foot examination Diabetic foot exam [facility] [employer] Start: 1968 Hemoglobin A1c measurement A1C test (Diabetic or Prediabetic) [facility] [email or web address] Start: 1968 Lipid panel Lipids [facility] [email or web address] Start: 03-31-1959 COVID-19 Vaccine (#1) COVID-19 Vacci ne (#1) [facility] [email or web address] Start: 1958 Annual Wellness Visi t (AWV) Annual Wellness Visit (AWV) [facility] Start: 1958 Hepatitis C screening [facility] [email or web address] Phone: Adult NIV/Positive Airway Pressure Adult NIV/Positive Airway Pressure Respiratory Care Routine Every 4hr until discontinued starting 09/03/2022 [employer] Phone: Comment on above: Every 4hr until disc ontinued starting 09/03/2022 End: 11-06-2023 Blood glucose - POCT [employer] Comment on above: One Time for 1 Occur rences starting 11/06/2023 until 11/06/2023 Continuous pulse oximetry Pulse oximetry, continuous Respiratory Care Routine Every 4hr until discontinued starting 09/02/2022 [employer] Work Phone: Comment on above: Every 4hr until disc ontinued starting 09/02/2022 End: 02-08-2021 COVID-19 COVID-19 Lab Routine Preop testing 1 Occurrences starting 02/08/2021 until 02/08/2021 [email or web address] Phone: Comment on above: 1 Occurrences starti ng 02/08/2021 until 02/08/2021 COVID-19 COVID-19 Lab Rou jassi Preop testing 02/08/2021 10:00 AM EDT [email or web address] Phone: End: 06-17-2022 Culture, Urine [employer] Comment on above: Once for 1 Occurrenc es starting 06/17/2022 until 06/17/2022 Glucose [Mass/volume ] in Serum or Plasma [employer] Phone: Comment on above: 4X Daily (AC & HS) u ntil discontinued starting 09/02/2022 As Needed until disc ontinued starting 09/02/2022 Glucose [Mass/volume ] in Serum or Plasma [employer] Phone: Comment on above: 4X Daily (AC & HS) u ntil discontinued starting 10/28/2022 As Needed until disc ontinued starting 10/28/2022 Home BIPAP or CPAP Home BIPAP or CPAP Respiratory Care Routine Daily until discontinued starting 09/02/2022 [employer] Work Phone: Comment on above: Daily until disconti nued starting 09/02/2022 End: 09-04-2022 Home O2 eval (desaturation screen) Home O2 eval (desaturation screen) Respiratory Care Routine One Time for 1 Occurrences starting 09/04/2022 until 09/04/2022 [employer] Phone: Comment on above: One Time for 1 Occur rences starting 09/04/2022 until 09/04/2022 End: 11-06-2023 INITIATE PACU OXYGEN THERAPY PROTOCOL Initiate PACU Oxygen Therapy Protocol Respiratory Care Routine Continuous until discontinued starting 11/06/2023 [employer] Phone: Comment on above: Continuous until dis continued starting 11/06/2023 Oxygen therapy [Mini mum Data Set] Initiate Oxygen Therapy Protocol Respiratory Care Routine Daily until discontinued starting 02/12/2021 [email or web address] Phone: Comment on above: Daily until disconti nued starting 02/12/2021 Oxygen therapy [Mini mum Data Set] Initiate Oxygen Therapy Protocol Respiratory Care Routine As Needed until discontinued starting 09/02/2022 [employer] Phone: Comment on above: As Needed until disc ontinued starting 09/02/2022 Oxygen therapy [Mini mum Data Set] Initiate Oxygen Therapy Protocol Respiratory Care Routine As Needed until discontinued starting 10/28/2022 [employer] Phone: Comment on above: As Needed until disc ontinued starting 10/28/2022 Oxygen therapy [Mini mum Data Set] Initiate Oxygen Therapy Protocol Respiratory Care Routine As Needed until discontinued starting 11/06/2023 [employer] Phone: Comment on above: As Needed until disc ontinued starting 11/06/2023 Phase I & II - meter ed glucose Phase I & II - metered glucose Point of Care Testing Routine As Needed until discontinued starting 02/12/2021 [email or web address] Phone: Comment on above: As Needed until disc ontinued starting 02/12/2021 End: 11-06-2023 , urine POCT , urine POCT Point of Care Testing Routine One Time for 1 Occurrences starting 11/06/2023 until 11/06/2023 [employer] Comment on above: One Time for 1 Occur rences starting 11/06/2023 until 11/06/2023 End: 09-03-2022 PREVIOUS SPECIMEN [employer] Phone: Comment on above: Once for 1 Occurrenc es starting 09/03/2022 until 09/03/2022 Spirometry panel Incentive marlen metry Respiratory Care Routine Every 2hr while awake until discontinued starting 09/02/2022 [employer] Phone: Comment on above: Every 2hr while awak e until discontinued starting 09/02/2022 Spirometry panel Incentive marlen metry RT Respiratory Care Routine Every 2hr while awake until discontinued starting 09/02/2022 [employer] Phone: Comment on above: Every 2hr while awak e until discontinued starting 09/02/2022 Spirometry panel Incentive marlen metry RT Respiratory Care Routine Every 2hr while awake until discontinued starting 09/03/2022 [employer] Phone: Comment on above: Every 2hr while awak e until discontinued starting 09/03/2022 Spirometry panel Incentive marlen metry Respiratory Care Routine Daily until discontinued starting 10/28/2022 [employer] Phone: Comment on above: Daily until disconti nued starting 10/28/2022 Immunizations Immunization Date Immunization Notes Care Provider Wil madden 10-24-2021 pneumococcal conjuga te vaccine, 13 valent La Zurita DPM Work Phone: [facility] 04-24-2021 pneumococcal polysaccharide vaccine, 23 valent La Zurita DPM Work Phone: [facility] 01-08-2017 pneumococcal polysaccharide vaccine, 23 valent La Zurita DPM Work Phone: [facility] Healthcare Payers Date Payer Category Payer Private Health Insurance [employer] [id number] 2023 Unknown [employer] [id number] 2023-Present [address] [place] [address] [id number] 2023 Unknown [id number]. [id number] 2001 Medicare [id number]. [id number] 2001 Medicare [id number]. [id number] 2001 Medicare [id number] 1959 Medicare [id number] [id number]. [id number] 1958 Unknown [id number] 2.16.840.1.924795.3.579.2. 177 1958 Unknown [id number] 2.16.840.1.283433.3.579.2. 593 1958 Unknown [id number] 2.16.840.1.462077.3.579.2. 593 1958 Unknown [id number] 2.16.840.1.035212.3.579.2. 593 1958 Unknown [id number] 2.16.840.1.923209.3.579.2. 593 1958 Unknown [id number] 2.16.840.1.205825.3.579.2. 593 1958 Unknown [id number] 2.16.840.1.900741.3.579.2. 593 1958 Unknown [id number] 2.16.840.1.160808.3.579.2. 593 1958 Unknown [id number] 2.16.840.1.984764.3.579.2. 593 1958 Unknown [id number] 2.16.840.1.298683.3.579.2. 593 1958 Unknown [id number] 2.16.840.1.245238.3.579.2. 593 1958 Unknown [id number] 2.16.840.1.540393.3.579.2. 593 1958 Unknown [id number] 2.16.840.1.584509.3.579.2. 593 1958 Unknown [id number] 2.16.840.1.746822.3.579.2. 175 1958 Unknown [id number] 2.16.840.1.431091.3.579.2. 175 1958 Unknown [id number] 2.16.840.1.238673.3.579.2. 175 1958 Unknown [id number] 2.16.840.1.182762.3.579.2. 175 1958 Unknown [id number] 2.16.840.1.483645.3.579.2. 1259 1958 Unknown [id number] 2.16.840.1.422106.3.579.2. 1259 1958 Unknown [id number] 2.16.840.1.748076.3.579.2. 1259 1958 Unknown [id number] 2.16.840.1.660284.3.579.2. 1259 1958 Unknown [id number] 2.16.840.1.456213.3.579.2. 1259 1958 Unknown [id number] 2.16.840.1.528696.3.579.2. 1259 Self-pay Self Pay [id number] Social History Date Type Detail Facility Start: 01-29-2021 End: 04-10-2023 Tobacco smoking status NHIS Never smoker [email or web address] Phone: Start: 01-29-2021 End: 04-10-2023 Tobacco use and exposure Never used [email or web address] Phone: Start: 01-29-2021 End: 11-06-2023 Alcohol intake Ex-drinker (finding) [email or web address] Phone: Start: 1960 Sex Assigned At Not on file [email or web address] Phone: Start: 06-07-2022 End: 10-28-2022 Exposure to SARS-CoV-2 (event) Not sure [email or web address] Phone: Tobacco smoking status Never [facility] [employer] Start: 06-17-2022 End: 03-02-2025 Sex Assigned At Female General Surgery Daniel Start: 1960 Sex [address] Female [facility] Start: 06-17-2022 History SDOH Alcohol Frequency 1 [employer] Work Phone: Start: 06-17-2022 End: 03-02-2025 History of Social function [employer] How often to you hav e a drink containing alcohol? Never [employer] Start: 08-30-2022 Gender identity Identifies as female gender (finding) [employer] Start: 08-13-2023 Sexual orientation Heterosexual (finding) [facility] Start: 10-23-2023 End: 03-02-2025 Alcohol intake Lifetime non-drinker (finding) [facility] Start: 04-09-2023 Alcohol Comment caffeine: 1-2 cups per day coffee, tea [facility] Medical Equipment Procedure Code Equipment Code Equipment Origin al Text Equipment Identifier Dates Spacer Spnl 7 De g [id number] Mm Coalition Mis - [id number] Start: 09-02-2022 Impl Spinal Disc Cerv Mobi-C [id number] - [id number] Start: 10-28-2022 Clinical Notes 03-21-2022 to 05-06-2025 Telephone Encounter - Gretchen Sal NP - 05/04/2025 2:55 PM EDTTelephone Encounter - Gretchen Sal NP - 05/04/2025 2:55 PM EDSang Burgos MD - 03/02/2025 3:20 PM EDTAttachments Note Date & Type Note Facility 05-06-2025 Note Psych Progress Note Time In: 1234 Time Out: 1331 HPI Present at Visit: patient Location of Service: Patient Location: Home; Provider Location: Home Office Current Presenting Symptoms/Problems: Trauma: No trauma noted Depression =2/10; Anxiety =6-7/10; Pain = 5-6/10 (right knee) Patient presents for session rather agitated. She disclosed that she has been trying to refill the Dilantin and [facility] pharmacy informed her that they were awaiting preauth from MD office. Patient called MD office and was told that preauth was not required and that prescription would be resent. Patient informed by pharmacy that preauth still required. Patient phoned MD office and demanded to speak to SCHOOL AIDE or MD to resolve this issue. Patient said issue has reportedly been resolved and she is due to receive the medication today. It is noteworthy that she took her last pill today. Patient said that she has evaluation with orthopedic surgeon on 05/12/25 for knee replacement. She continues to attend PT that is focused on strengthening muscles around the knee to facilitate recovery from joint replacement surgery. Patient doing strengthening exercises and she has been given clearance to ride stationary bike. She seems to be following recommendations and not overdoing. Patient said she was able to speak to her sister Sonam and she will be seeing her brother Oskar tomorrow at a graduation constitution party. Patient also learned her estranged nephew attempted suicide and that he is going to be transferred from [facility] floor to inpatient psychiatric unit. Patient said niece with mental health issues has been approved for disability and that she got a puppy. She said her brother and wwlife-rm-ykx set boundary that she is responsible for caring for the dog and if she cannot the dog will need to be surrendered. Individualized Service Plan (ISP): Treatment Plan Revision [...] last session. Patient given time to review and process medication issues and we discussed possible solutions to this problem. Patient very interested in calling hospital pharmacy to ask if they will fill her prescriptions on a regular basis. Patient also reviewed forward movement towards knee replacement surgery and continued attendance to PT. Patient also given time to review issues with her siblings and extended family. Patient provided with encouragement and support. Response [...] Language: expressive normal and receptive normal Mood: angry, anxious, and irritable Affect: appropriate, broad, congruent, full, [...] intact Reliability: very reliable Plan: Evaluation with orthopedic surgeon at [place] for knee replacement 05/12/25 [facility] (more content not included)... [facility] 05-04-2025 Telephone encounter Note Patient leaves voicemail that her Dilantin needs PA. I sent refills to [facility]. Says she will be out of medication on Friday [facility] 05-04-2025 Miscellaneous Notes Patient leaves voicemail that her Dilantin needs PA. I sent refills to [facility]. Says she will be out of medication on Friday documented in this encounter [facility] 04-08-2025 Note Psych Progress Note Time In: 1231 Time Out: 1327 HPI Present at Visit: patient Location of Service: Patient Location: Home; Provider Location: Home Office Current Presenting Symptoms/Problems: Trauma: No trauma noted Depression =3/10; Anxiety =4-5/10; Pain = 5/10 (right knee) Patient said she has evaluation with SCHOOL AIDE in orthopedic surgery on 04/14/25 to move forward with knee replacement. She said Dr. Vega will be performing the surgery. She said physical education aide commented that patient does not want a [...] intact Reliability: very reliable Plan: Evaluation with SCHOOL AIDE at [place] for knee replacement 04/14/25 Take comments from others with a grain of salt; address concerns with providers Patient will call if sooner appt needed This visit was conducted qbrm-lc-ldof with the use of audio and video technology using [employer] and the patient was notified that using 3rd constitution party telecommunication application ([employer]) is HIPAA compliant. It was explained that the limits of confidentiality that exist during in-person sessions also apply for telepsychology sessions (i.e., where the patient indicates that he or she intends to harm self or others, the patie (more content not included)... [facility] 03-11-2025 Note Psych Progress Note Time [...] Reliability: very reliable Plan: Awaiting call from [facility] to schedule knee replacement surgery Challenge negative self-talk by reminding yourself that you are not a quitter and that you tried your best to adhere to treatment recommendations This visit was conducted (more content not included)... [facility] 03-02-2025 History of Present illness Narrative [...] Therapy Supplies (CareTouch CPAP & BIPAP Hose) [facility] BIPAP mask, heating tubing and supplies for [...] Cervical stenosis of spinal canal 05/21/2018 Depression ([facility]) Dizziness 08/08/2013 Epilepsy 09/16/2017 Fatigue 05/21/2018 Headache 11/19/2011 History of being hospitalized 08/2005 [facility] x5 days for double pneumonia Insomnia 07/14/2018 Lack of coordination 08/08/2013 Malaise and fatigue 02/15/2014 ADRIANA (obstructive sleep apnea) 05/21/2018 Paresthesias 05/21/2018 Radicular pain in left arm 05/21/2018 Right shoulder pain Seizure disorder (CMS/HCC) 06/07/2009 Sleep apnea 10/24/2015 Thyroid disease ([facility]) Vitamin D deficiency 01/25/2013 Past Surgical History: Procedure Laterality Date BACK SURGERY 1972, 1998 BIOPSY VAGINAL 2020 cyst CARPAL TUNNEL RELEASE Right 1985 CERVICAL DISC ARTHROPLASTY 10/28/2022 C3/4/5 Dr. Cruz CERVICAL FUSION 09/02/2022 C5-C6 - Dr. Cruz and 04/16 CHOLECYSTECTOMY CYST REMOVAL Right breast - 1989, 1990 KNEE SURGERY Left for meniscus and ACL tear OTHER SURGICAL HISTORY sialendoscopy PARATHYROIDECTOMY MN KNEE SCOPE,DIAGNOSTIC Bilateral [place] LOBECTOMY TEMPOR CORTICOGRAPHY 2006 temporal lobectomy [place] NEUROPLASTY &/TRANSPOSITION ULNAR NERVE ELBOW 1989 ROTATOR [...] Depression: Not at risk (08/04/2020) Received from [employer] PHQ-2 Total Score: 0 REVIEW OF SYMPTOMS: [...] in all four extremities, including at least cradle slide maker, finger abductors, biceps, triceps, deltoid, toe flexors [...] 30mg and Clonazepam, Trazodone 200mg. Send to [facility] in [place]. documented in this encounter [facility] 02-25-2025 Note Psych Progress Note Time In: 1143 Time Out: 1238 HPI Present at Visit: patient Location of Service: Patient Location: Home; Provider Location: Home Office Patient unable to connect to [employer] again and received a message that her [...] less intense pain. Patient said that another ribbon cleaner she found through a friend agreed [...] is 03/08 Consider meeting with brother and rlzycv-gh-hlv at a later date for [facility] service evaluation 02/14/25 It was explained that t (more content not included)... [facility] 02-11-2025 Note Psych Progress Note Time In: 1037 Time Out: 1130 HPI Present at Visit: patient Location of Service: Patient Location: Home; Provider Location: Home Office Patient unable to connect to either [employer] nor [employer] and reportedly received a message that her [...] procedure (Carmella) and patient did. She said special class welder informed her that she could opt to [...] was too big. Patient has found another ribbon cleaner through a friend and evaluation is [...] and ask for (more content not included)... [facility] 01-21-2025 Note Psych Progress Note Time [...] worsening knee pain) This visit was conducted nllm-zm-ponp with the use of audio and video technology using [employer] and the patient was notified that using (more content not included)... [facility] 12-09-2024 Note Psych Progress Note Time [...] from orthopedic surgeon This visit was conducted qucf-[id number] with the use of audio and video technology using [employer] and the patient was notified that using 3rd constitution party telecommunication application ([employer]) is HIPAA compliant. It was explained that [...] explained includin) nob (more content not included)... [facility] 12-02-2024 History of Present illness Narrative [...] Cervical stenosis of spinal canal 05/21/2018 Depression ([facility]) Dizziness 08/08/2013 Epilepsy ([facility]) 09/16/2017 Fatigue 05/21/2018 Headache 11/19/2011 History of being hospitalized 08/2005 [facility] x5 days for double pneumonia Insomnia 07/14/2018 Lack of coordination 08/08/2013 Malaise and fatigue 02/15/2014 ADRIANA (obstructive sleep apnea) 05/21/2018 Paresthesias 05/21/2018 Radicular pain in left arm 05/21/2018 Right shoulder pain Seizure disorder ([facility]) 06/07/2009 Sleep apnea 10/24/2015 Thyroid disease ([facility]) Vitamin D deficiency 01/25/2013 Past Surgical History: Procedure Laterality Date BACK SURGERY 1972, 1998 BIOPSY VAGINAL 2020 cyst CARPAL TUNNEL RELEASE Right 1984 CERVICAL DISC ARTHROPLASTY 10/28/2022 C3/4/5 Dr. Cruz CERVICAL FUSION 09/02/2022 C5-C6 - Dr. Cruz and 04/16 CHOLECYSTECTOMY CYST REMOVAL Right breast - 1989, 1990 KNEE SURGERY Left for meniscus and ACL tear OTHER SURGICAL HISTORY sialendoscopy PARATHYROIDECTOMY MN KNEE SCOPE,DIAGNOSTIC Bilateral MN LOBECTOMY TEMPOR CORTICOGRAPHY 2006 temporal lobectomy [place] NEUROPLASTY &/TRANSPOSITION ULNAR NERVE ELBOW 1989 ROTATOR [...] Depression: Not at risk (08/04/2020) Received from [facility], [facility] PHQ-2 Total Score: 0 REVIEW OF SYMPTOMS: [...] in all four extremities, including at least cradle slide maker, finger abductors, biceps, triceps, deltoid, toe flexors [...] lobe epilepsy (CMS/HCC) documented in this encounter [facility] 11-19-2024 Note Psych Progress Note Time In: [...] Aryan and New Year's with brother and bwlvxl-on-htt. She said that her brother's cognitive functioning [...] able to approp (more content not included)... [facility] 10-22-2024 Note Psych Progress Note Time [...] spending with Patricia This visit was conducted wdlr-iz-yvcn with the use of audio and video technology using [employer] and the patient was notified that using 3rd constitution party telecommunication application ([employer]) is HIPAA compliant. It was explained that the limits of confidentiality that exist during in-person sessions also apply for telepsychology sessions (i.e., where the patient indicates that he or she intends to harm self or others, the megha (more content not included)... [facility] 09-23-2024 History of Present illness Narrative [...] Therapy Supplies (CareTouch CPAP & BIPAP Hose) [facility], heating tubing and supplies for [...] Cervical stenosis of spinal canal 05/21/2018 Depression ([facility]) Dizziness 08/08/2013 Epilepsy ([facility]) 09/16/2017 Fatigue 05/21/2018 Headache 11/19/2011 History of being hospitalized 08/2005 [facility] x5 days for double pneumonia Insomnia 07/14/2018 Lack of coordination 08/08/2013 Malaise and fatigue 02/15/2014 ADRIANA (obstructive sleep apnea) 05/21/2018 Paresthesias 05/21/2018 Radicular pain in left arm 05/21/2018 Right shoulder pain Seizure disorder ([facility]) 06/07/2009 Sleep apnea 10/24/2015 Thyroid disease ([facility]) Vitamin D deficiency 01/25/2013 Past Surgical History: Procedure Laterality Date BACK SURGERY 1972, 1998 BIOPSY VAGINAL 2020 cyst CARPAL TUNNEL RELEASE Right 1985 CERVICAL DISC ARTHROPLASTY 10/28/2022 C3/4/5 Dr. Cruz CERVICAL FUSION 09/02/2022 C5-C6 - Dr. Cruz and 04/16 CHOLECYSTECTOMY CYST REMOVAL Right breast - 1989, 1990 KNEE SURGERY Left for meniscus and ACL tear OTHER SURGICAL HISTORY sialendoscopy PARATHYROIDECTOMY [place] KNEE SCOPE,DIAGNOSTIC Bilateral [place] LOBECTOMY TEMPOR CORTICOGRAPHY 2006 temporal lobectomy [place] NEUROPLASTY &/TRANSPOSITION ULNAR NERVE ELBOW 1989 ROTATOR [...] Depression: Not at risk (08/04/2020) Received from [facility], [facility] PHQ-2 Total Score: 0 REVIEW OF SYMPTOMS: [...] reflexes: Roberto's absent. Ankle clonus absent. Coordination Fmvikd-cv-yoxp, rapid alternating movements and bral-mn-zcgj normal bilaterally without dysmetria. Gait Normal casual, [...] injections if needed. documented in this encounter [facility] 09-17-2024 Note Psych Progress Note Time In: [...] Patient said she has contacted both the reinsurance claim analyst as well as the individual handling the medical payments of the change. Patient returned to [employer] and she is enjoying it. Patient said [...] also initiated positive reaction to returning to [employer] and she was provided with encouragement and [...] no homicidal guilherme (more content not included)... [facility] 09-17-2024 Telephone encounter Note Patient left voicemail requesting refill of Clondazepam be sent to [facility] in [place] please. [facility] 09-17-2024 Miscellaneous Notes Patient left voicemail requesting refill of Clondazepam be sent to [facility] in [place] please. 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 She is trying to take some breaks, but she is doing too much in one day. Patient said her spouse has been working a lot and that he has been doing 9-10 hour days for weeks. She said that he told her he would not be working this weekend. Patient said her brother from [place] is visiting because he wanted to determine [...] she is seriously contemplating singing in the [employer] choir for the holidays. She said that [...] can stop Pat (more content not included)... [facility] 07-30-2024 Note Psych Progress Note Time In: 1138 Time Out: 1233 HPI Present at Visit: patient Location of Service: Patient Location: Home; Provider Location: Home Office Current Presenting Symptoms/Problems: Trauma: No trauma noted Depression =3/10; Anxiety = 2/10; Pain = 3-4/10 (left side; both hands) Patient said that her stepson will not be moving to [place] and that he is still living with patient and spouse. Patient said he finally got a new job (working at [employer]). Patient said she fired the maid because [...] on vacation for 5 days at a [facility] in [place], [place]. She said they really enjoyed themselves [...] issues involving her stepson, siblings, and terminating [employer] service. Patient also given time to discuss [...] sooner appt needed This visit was conducted gnys-sj-fxnp with the use of audio and video technology using [employer]. and the pat (more content not included)... [facility] 07-05-2024 History of Present illness Narrative [...] Cervical stenosis of spinal canal 05/21/2018 Depression ([facility]) Dizziness 08/08/2013 Epilepsy ([facility]) 09/16/2017 Fatigue 05/21/2018 Headache 11/19/2011 History of being hospitalized 08/2005 [facility] x5 days for double pneumonia Insomnia 07/14/2018 Lack of coordination 08/08/2013 Malaise and fatigue 02/15/2014 ADRIANA (obstructive sleep apnea) 05/21/2018 Paresthesias 05/21/2018 Radicular pain in left arm 05/21/2018 Right shoulder pain Seizure disorder ([facility]) 06/07/2009 Sleep apnea 10/24/2015 Thy[place] Vitamin D deficiency 01/25/2013 Past Surgical History: Procedure Laterality Date BACK SURGERY 1972, 1998 BIOPSY VAGINAL 2020 cyst CARPAL TUNNEL RELEASE Right 1984 CERVICAL DISC ARTHROPLASTY 10/28/2022 C3/4/5 Dr. Cruz CERVICAL FUSION 09/02/2022 C5-C6 - Dr. Cruz and 04/16 CHOLECYSTECTOMY CYST REMOVAL Right breast - 1989, 1990 KNEE SURGERY Left for meniscus and ACL tear OTHER SURGICAL HISTORY sialendoscopy PARATHYROIDECTOMY MN KNEE SCOPE,DIAGNOSTIC Bilateral MN LOBECTOMY TEMPOR CORTICOGRAPHY 2006 temporal lobectomy MN NEUROPLASTY &/TRANSPOSITION ULNAR NERVE ELBOW 1989 ROTATOR CUFF REPAIR 2015 arthroscopic torn rotator cuff and bicep SHOULDER SURGERY Right shoulder impingement SPINAL FUSION 1972, 1998 TOTAL SHOULDER ARTHROPLASTY Right 03/2015 TRIGGER FINGER RELEASE Right 2014 TUBAL LIGATION 1991 TUMOR REMOVAL 1981 from foot Social History Tobacco Use Smoking status: Never Smokeless tobacco: Never Substance Use Topics Alcohol use: Never Comment: caffeine: 1-2 cups per day coffee, tea Drug use: Never Family History Problem Relation Name Age of Onset Heart disease Mother Mother Heart disease Father Father Cancer Sibling Other (suicide) Nephew Depression: Not at risk (08/04/2020) Received from [facility], [facility] PHQ-2 Total Score: 0 REVIEW OF SYMPTOMS: [...] reflexes: Roberto's absent. Ankle clonus absent. Coordination Qnwzbk-lf-pjhm, rapid alternating movements and rmvb-ab-pwyd normal bilaterally without dysmetria. Gait Normal casual, toe, heel and tandem gait. Romberg is absent. PROCEDURE: NONE ASSESSMENT AND PLAN: Diagnoses and all orders for this visit: Focal epilepsy (CMS/HCC) - gabapentin (Neurontin) 800 [...] interactions of medications. documented in this encounter [facility] 06-25-2024 Note Psych Progress Note Time In: 1230 Time Out: 1328 HPI Present at Visit: patient Location of Service: Patient Location: Home; Provider Location: Home Office Current Presenting Symptoms/Problems: Trauma: No trauma noted Depression =2-3/10; Anxiety = 3/10; Pain = 3-4/10 (left side; both hands) Patient said that her stepson has not yet moved to [place] (he did have going away constitution party), but she did not feel comfortable talking about it today because he was home. She denied having need to discuss it immediately and said it could wait. 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 She said her ozdmcr-js-sti initiated this gathering because patient's brother's cognitive [...] sooner appt needed This visit was conducted ndma-cc-qglj with the use of audio and video technology using [employer] and the patient was notified that using 3rd constitution party telecommunication application ([employer]) is HIPAA compliant (more content not included)... [facility] 06-25-2024 Telephone encounter Note Patient called stating her self pay diabetic shoes were to big once she picked them up 15 and tried them on at home. She said she just wants to return them. [facility] 06-25-2024 Miscellaneous Notes Patient called stating her self pay diabetic shoes were to big once she picked them up 15 and tried them on at home. She said she just wants to return them. documented in this encounter [facility] 05-28-2024 Note Psych Progress Note Time In: [...] smudged or dirty. 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 The lenses were redone and she said the headaches have remitted. Patient learned from zjdgoj-jj-ddi that her stepson intends to move to [place] and live with his mother's cousin. Patient said that he had told patient and spouse that he intended to move to [place], but then there was not further discussion. Patient asked spouse if he knew his son intended to move to [place], and he said he only learned about it 2 days before she confronted him. Patient said she and spouse have plans to move and downsize, and she said her stepson will not be moving with them and she wants to make sure that antwon understands this because she suspects he will want to move back home shortly after moving down to [place] (patient used to be friends with the [...] able to comme (more content not included)... [facility] 12-25-2023 History of Present illness Narrative [...] Disp: , Rfl: beta carotene (Vitamin A) 10721 units capsule, Take 25,000 Units by mouth., [...] Cervical stenosis of spinal canal 05/21/2018 Depression ([facility]) Dizziness 08/08/2013 Epilepsy ([facility]) 09/16/2017 Fatigue 05/21/2018 Headache 11/19/2011 History of being hospitalized 08/2005 [facility] x5 days for double pneumonia Insomnia 07/14/2018 Lack of coordination 08/08/2013 Malaise and fatigue 02/15/2014 ADRIANA (obstructive sleep apnea) 05/21/2018 Paresthesias 05/21/2018 Radicular pain in left arm 05/21/2018 Right shoulder pain Seizure disorder ([facility]) 06/07/2009 Sleep apnea 10/24/2015 Thyroid disease ([facility]) Vitamin D deficiency 01/25/2013 Past Surgical History: Procedure Laterality Date BACK SURGERY 1972, 1998 BIOPSY VAGINAL 2020 cyst CARPAL TUNNEL RELEASE Right 1985 CERVICAL DISC ARTHROPLASTY 10/28/2022 C3/4/5 Dr. Cruz CERVICAL FUSION 09/02/2022 C5-C6 - Dr. Cruz and 04/16 CHOLECYSTECTOMY CYST REMOVAL Right breast - 1989, 1990 KNEE SURGERY Left for meniscus and ACL tear OTHER SURGICAL HISTORY sialendoscopy PARATHYROIDECTOMY MN KNEE SCOPE,DIAGNOSTIC Bilateral MN LOBECTOMY TEMPOR CORTICOGRAPHY 2006 temporal lobectomy [place] NEUROPLASTY &/TRANSPOSITION ULNAR NERVE ELBOW 1989 ROTATOR CUFF REPAIR 2014 arthroscopic torn rotator cuff and bicep SHOULDER SURGERY Right shoulder impingement SPINAL FUSION 1972, 1998 TOTAL SHOULDER ARTHROPLASTY Right 03/2015 TRIGGER FINGER RELEASE Right 2013 TUBAL LIGATION 1990 TUMOR REMOVAL 1980 from foot Family History Problem Relation Name [...] in all four extremities, including at least cradle slide maker, finger abductors, biceps, triceps, deltoid, toe flexors [...] other concerns today. documented in this encounter [facility] 11-06-2023 Hospital Discharge instructions Ashly Patterson RN [...] a strong odor. documented in this encounter [facility] 10-31-2023 History of Present illness Narrative DAY OF SURGERY/PROCEDURE GUIDELINES As a patient at the [facility], you can expect quality medical and [...] if directed) Do not apply any lotions. [place] your teeth, but do not swallow any [...] and recovery. documented in this encounter [facility] 10-29-2022 History of Present illness Narrative Physical Therapy Facility/Department: [address] ORTHO/MED SURG Physical Therapy Initial Assessment [...] Ambulation Assistance: Independent Transfer Assistance: Independent [employer] Workflow Consultant: Yes Mode of Transportation: Car Occupation: On [...] from the original note were not included. [facility] Office: [phone] Rakesh Vu DO, Norman Almeida DO, Feng [...] Caputo MD, Elmo Seth MD, Sonam Burrell, SCHOOL AIDE, Sabina Gottlieb, SCHOOL AIDE, Nicole Cody, SCHOOL AIDE, Tim Buckner, SCHOOL AIDE, Jennifer Zarate, DNP, Kate Srivastava, SCHOOL AIDE, Sangeeta Martinez, SCHOOL AIDE, Shanita Mansfield, SCHOOL AIDE, Allie Jimenes, SCHOOL AIDE, Alyson Orona, SCHOOL AIDE, RANDY Bhatia-C, Cynthia Church, CUFF SETTER LOCKSTITCH, Nenita Marion, SCHOOL AIDE, Anaid Mendiola, SCHOOL AIDE [facility] IN-PATIENT SERVICE [facility] Progress Note 10/29/2022 9:23 AM Name: Kristin Null Acct: [id number] Room: [address] [place] [address] Day: 1 Admit Date: 10/28/2022 5:56 AM [...] nurse Brief History: Per my partner Mrs. Kirstin Null is a 62 year old male [...] Continuous Infusions: lactated ringers 125 mL/hr (10/29/22 8969) sodium chloride dextrose PRN Meds: tiZANidine, sodium [...] RDW, PLT, MPV, SEDRATE, CRP, INR, DDIMER, HE4PACEX, LABABSO in the last 72 hours. Invalid [...] results found for: POCPH, PHART, PH, POCPCO2, KQZ1WCV, PCO2, POCPO2, PO2ART, PO2, POCHCO3, LTK6LNA, HCO3, NBEA, PBEA, BEART, BE, THGBART, THB, QWI2XBT, XMXR9XBP, L1AOPJDZ, O2SAT, FIO2 No results found for: SPECIAL [...] of insulin (HCC) 10/28/2022 Yes Seizure disorder (HCC) 10/28/2022 Yes ADRIANA treated with BiPAP 10/28/2022 [...] 14d -Please page ortho for any questions. Redi Mcgregor D.O. Orthopedic Surgery Resident, PGY-1 [place], [place] PGY-3 Addendum Patient seen and examined. [...] encounter [facility] [employer] Phone: 10-28-2022 Hospital Discharge instructions Deloris Chong [...] his office 10-14 days after surgery. Call [phone] to schedule/confirm or with any questions/concerns. The following attachments cannot be sent through Care Everywhere.cephalexin (Chinese)acetaminophen and oxycodone (Chinese)documented in this encounter [facility] [employer] Phone: 09-04-2022 History of Present illness Narrative Images from the original note were not included. [facility] Office: [phone] Rakesh Vu DO, Norman Almeida DO, Feng [...] Sabina Gottlieb CNP, Nicole Cody CNP, Tim Buckner, CHEVY, Jennifer Zarate, KARINA, Kate Srivastava, CHEVY, Sangeeta Martinez, SCHOOL AIDE, Shanita Mansfield, SCHOOL AIDE, Allie Jimenes, SCHOOL AIDE, Alyson Orona, SCHOOL AIDE, Vini Palumbo PA-C, Cynthia Church, CUFF SETTER LOCKSTITCH, Marianna Gimenez, KARINA, Nenita Marion, CHEVY, Jazzy Bejarano, CHEVY, Anaid Mendiola, CHEVY [facility] IN-PATIENT SERVICE [facility] Progress Note 09/04/2022 12:32 PM Name: Kristin Null Acct: [id number] Room: [address] [place] [address] Day: 0 Admit Date: 09/02/2022 6:56 AM [...] mg Oral Once per day on Fri scopolamine 1 patch TransDERmal Q72H sodium [...] results found for: POCPH, PHART, PH, POCPCO2, CRV8FMU, PCO2, POCPO2, PO2ART, PO2, POCHCO3, CNI6MUS, HCO3, NBEA, PBEA, BEART, BE, THGBART, THB, IHT2RGX, UQOA9BBD, R9JQTAGH, O2SAT, FIO2 No results found for: SPECIAL [...] of insulin (HCC) 09/02/2022 Yes Seizure disorder ([facility]) 09/02/2022 Yes Current chronic use of systemic [...] LUCIA DAS 10:44 AM Occupational Therapy Facility/Department: [address] ORTHO/MED SURG Occupational Therapy Daily Treatment [...] open all containers demo 0 loss of cradle slide maker Grooming: Stand by assistance;Setup Grooming Skilled Clinical Factors: oral care, face washing and hand hygiene facilitated standing at sink with RW demo 0 LOB and 0 loss of cradle slide maker LE Dressing: Stand by assistance;Setup;Verbal cueing LE [...] Method: Demonstration;Verbal Education Outcome: Continued education needed [facility] Score [facility] Inpatient Daily Activity Raw Score: 19 (09/04/22943) [facility] Inpatient ADL T-Scale Score : 40.22 [...] Time Individual Concurrent Group Co-treatment Time In 737 Time Out 0817 Minutes 39 Timed Code Treatment Minutes: 39 Minutes LAEAH Ho/Brianna Patient refused neurontin 800mg at bed time. She said that she takes it at home as 1600mg at bed time. Informed ortho service about it but still waiting for final order. Will continue monitoring patient. 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 [...] Walker, rolling, Cane, Sock aid, Long-handled shoehorn, Clinical Biochemist, Grab bars Has the patient had two or more falls in the past year or any fall with injury in the past year?: No Receives Help From: Family ADL Assistance: Independent Homemaking Assistance: Independent Homemaking Responsibilities: Yes Ambulation Assistance: Independent Transfer Assistance: Independent [employer] Workflow Consultant: Yes Mode of Transportation: SUV Occupation: On disability Type of Occupation: disabled Leisure & Hobbies: Likes biking Additional Comments: Pt reports no support at home. 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 Objective Safety Devices Type of Devices: Left [...] Within functional limits Cognition Overall Cognitive Status: WFL Cognition Comment: Pt hyperverbal throughout session Orientation Overall Orientation Status: Within Functional Limits Education Given To: Patient;Family Education Provided: Role of Therapy;Plan of Care;ADL Adaptive Strategies;Transfer Training;Precautions Education Method: Verbal Education Outcome: Verbalized understanding AM-PAC Score [facility] Inpatient Daily Activity Raw Score: 17 (09/03/221443) [facility] Inpatient ADL T-Scale Score : 37.26 (09/03/221443) ADL Inpatient CMS 0-100% Score: 50.11 (09/03/221443) ADL Inpatient [facility] G-Code Modifier : CK (09/03/221443) Goals Short [...] from the original note were not included. [facility] Office: [phone] Rakesh Vu DO, Norman Almeida DO, Feng [...] Jennifer Zarate, KARINA, Kate Srivastava, CHEVY, Sangeeta Martinez, CHEVY, Shanita Mansfield CNP, Allie Jimenes CNP, Alyson Orona CNP, Vini Palumbo PA-C, Cynthia Church, DILLAN, Marianna Gimenez DNP, Nenita Marion, CHEVY, Jazzy Bejarano, CHEVY, Anaid Mendiola, SCHOOL AIDE [facility] IN-PATIENT SERVICE [facility] Progress Note 09/03/2022 2:46 PM Name: Kristin Null Acct: [id number] Room: 0236/0236-01 Day: 0 Admit Date: 09/02/2022 [...] Oral Nightly carvedilol 6.25 mg Oral BID scopolamine 1 patch TransDERmal Q72H sodium chloride [...] C), Max:98.3 F (36.8 C) Recent Labs 09/02/22 2146 09/03/22 0652 09/03/22 [...] results found for: POCPH, PHART, PH, POCPCO2, MOO7KQN, PCO2, POCPO2, PO2ART, PO2, POCHCO3, HCY6ZIQ, HCO3, NBEA, PBEA, BEART, BE, THGBART, THB, SEI6COG, LZSM5RLQ, V5JXAWBY, O2SAT, FIO2 No results found for: SPECIAL [...] mellitus, without long-term current use of insulin ([facility]) 09/02/2022 Yes Seizure disorder ([facility]) 09/02/2022 Yes Current chronic use of systemic steroids 09/02/2022 Yes Acute respiratory failure with hypoxia ([facility]) 09/03/2022 Yes ADRIANA treated with BiPAP 09/03/2022 [...] at time of delivery. Physical Therapy Facility/Department: [address] ORTHO/MED SURG Physical Therapy Initial Assessment [...] Ambulation Assistance: Independent Transfer Assistance: Independent [employer] Workflow Consultant: Yes Mode of Transportation: [facility] Occupation: On disability Leisure & Hobbies: Likes [...] Mobility Raw Score : 24 (09/03/22 1143) AM-PAC Inpatient T-Scale Score : 61.14 (09/03/22 114) Mobility Inpatient CMS 0-100% Score: 0 (09/03/22 [...] Co-treatment Time In Time Out Minutes La Albert PT Orthopedic Progress Note Patient: Kristin Null [...] days from surgery - Please page Ortho professional bondsman with any questions Theresa Carvajal, Orthopedic Surgery Resident, PGY-1 [place], [place] PGY-3 Addendum Patient seen and examined. Agree with Dr. Carvajal's history, physical examination, assessment and plan except where changes were made above (may be highlighted by [employer]'s author selection feature). Patient has median nerve [...] ortho resident. Will continue monitoring patient. Updated [facility] on repeat blood pressure of 157/90. Still waiting for dilantin 30mg at bed time coverage for Friday. Will continue to monitor patient. Patient took her own dose of neurontin, clonazepam and dilantin. Told her that still waiting for an order but refused to do so. Referred to [facility] around 22:40 patient's blood pressure of 177/89. Still waiting for response. Will continue monitoring patient. Neuro clearance received for procedure scheduled 09/02/2022 documented in this encounter [facility] [employer] Phone: 09-02-2022 Hospital Discharge instructions Theresa Carvajal [...] his office 10-14 days after surgery. Call [phone] to schedule/confirm or with any questions/concerns. documented in this encounter [facility] [employer] Phone: 08-28-2022 History of Present illness Narrative [...] 1984 Dr. Enrico Burgos Neurologist MARÍA Branham Al. Has not had a seizure in at least 5 years Gall stones 2006 History of blood transfusion 1972 during spinal fusion surgery. no problems Numbness around mouth left side, chronic, states had mri brain, and following with neuro closely ADRIANA (obstructive sleep apnea) 2006 BiPap machine. Managed by Dr. Burgos Neurologist MARÍA Scott Al PONV (postoperative nausea and vomiting) Seasonal allergies Shoulder pain Wellness examination 01/24/[address] Niki Pearson [place], [place]; last visit March 2022 Patient was [...] 12:45 PM documented in this encounter [facility] [employer] Phone: 08-27-2022 Hospital Discharge instructions TIFFANIE Menendez [...] Day of Surgery/Procedure As a patient at [facility] you can expect quality medical and nursing care that is centered on your individual needs. Our goal is to make your surgical experience as comfortable as possible Directions to the Surgery Center The surgery Center at [facility] is located in the Emergency Room parking lot on [facility] or there is additional parking across the street. The address is [address] [place] [address]. Please check in at the Surgery Center [...] on the day of surgery please contact [phone] or [phone] If you have any other questions regarding your procedure/surgery please call your surgeon's office. documented in this encounter [employer] Phone: 06-17-2022 Hospital Discharge instructions Shanon Crawford DO - 06/17/2022 8:24 PM EDT You have yeast infection. Please use your prescriptions will be as prescribed. Please follow-up with [facility]. Please return the emergency room if you develop any worsening symptoms, abdominal pain, fevers, any other concerning symptoms. documented in this encounter [employer] Phone: 03-30-2022 Note Chief Complaint consultation for sebaceous cyst HPI Staff 61 year old female presents on consultation from Dr. Pearson for sebaceous cyst left arm. History of Present Illness 61 yo female with h/o htn, hyperlipidemia, seizure d/o, ADRIANA, anxiety/depression; referred for possible cyst left forearm; patient reports 1 month h/o painful, swollen lump on right forearm; occurred when she was in [place], got a bug bite; area was swollen [...] bite (nonvenomous) of left upper arm, sequela (S40.082S: Insect bite (nonvenomous) of left upper arm, [...] 1 tab(s), Oral, Daily Nasonex 50 mcg/inh [place], 1 spray(s), Nasal, BID, PRN traZODONE 50 [...] Osteoporosis: Mother. Ovarian cancer: Mother. Seizure: Brother. [facility] Comment on above: Result Comment: Elec tronically [...] changes, no acute fracture Electronically authenticated by: ORCÍO REYES Date: 2022-03-21 07:27 [facility] Evaluation + Plan note No data available for this section General Surgery [place] Evaluation note No assessment inform ation available [facility] Work Phone: Evaluation note Diagnosis Yeast infection involving the vagina and surrounding area- Primary Candidiasis of vulva and vagina documented in this encounter [employer] Work Phone: evaluation note* Diagnosis S/P cervical [...] Atelectasis Pulmonary collapse documented in this encounter [employer] Phone: evaluation note* Diagnosis Cervical stenosis of [...] Insomnia Insomnia, unspecified documented in this encounter [facility] [employer] Work Phone: evaluation note* Diagnosis Acute postoperative pain- Primary Other acute postoperative pain Acute carpal tunnel syndrome of right wrist documented in this encounter [facility] HEALTHEvaluation note* Diagnosis Acute carpal tunnel syndrome of right wrist- Primary Seizure (CMS/HCC) Other convulsions Allodynia Disturbance of skin sensation Cervical radiculopathy Brachial neuritis or radiculitis nos Complex partial seizure with impairment of consciousness (CMS/HCC) Localization-related (focal) (partial) epilepsy and epileptic syndromes with complex partial seizures, without mention of intractable epilepsy documented in this encounter [facility] HealthcareEvaluation note* Diagnosis Other nerve root and plexus disorders- Primary Chronic insomnia Insomnia, unspecified 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 Allergic rhinitis due to animal (cat) (dog) hair and dander Focal epilepsy (CMS/HCC) Trochanteric bursitis, right hip documented in this encounter [facility] HealthcareEvaluation note* Diagnosis Focal epilepsy (CMS/HCC)- Primary Seizure disorder (CMS/HCC) Unspecified epilepsy without mention of intractable epilepsy Acute carpal tunnel syndrome of right wrist Cervical radiculopathy Brachial neuritis or radiculitis nos Complex partial seizure with impairment of consciousness (CMS/HCC) Localization-related (focal) (partial) epilepsy and epileptic syndromes with complex partial seizures, without mention of intractable epilepsy documented in this encounter [facility] HealthcareEvaluation note* Diagnosis Cervical radiculopathy- Primary Brachial [...] of intractable epilepsy documented in this encounter [facility] HealthcareEvaluation note* Diagnosis Chronic insomnia Insomnia, unspecified Focal epilepsy (CMS/HCC) Generalized seizure disorder (CMS/HCC) Unspecified epilepsy without mention of intractable epilepsy Seizure (CMS/HCC) Other convulsions documented in this encounter [facility] HealthcareEvaluation note* Diagnosis Generalized seizure disorder (HCC) Unspecified epilepsy without mention of intractable epilepsy Focal epilepsy (HCC) documented in this encounter [facility] No data available for this section General Surgery Daniel Assessments Diagnosis Preop testing- Primary Preoperative examination, unspecified Diagnosis Post-op pain- Primary Other acute postoperative pain Advance Directives No Advanced Directives Records FoundDocuments on File Type Date Recorded Patient Strip Cutter Expl anation ACP-Advance Directive ACP-Advance Directive 01/29/2021 1:55 PM ACP-Power of Program Facilitator ACP-Power of Program Facilitator 01/29/2021 1:55 PM Documents on File Type Date Recorded Patient Strip Cutter Expl anation ACP-Advance Directive ACP-Advance Directive 01/29/2021 1:55 PM ACP-Power of Program Facilitator ACP-Power of Program Facilitator 01/29/2021 1:55 PM Documents on File Type Date Recorded Patient Strip Cutter Expl anation ACP-Advance Directive 01/29/2021 1:55 PM ACP-Power of Program Facilitator 01/29/2021 1:55 PM Documents on File Type Date Recorded Patient Strip Cutter Expl anation ACP-Advance Directive 01/29/2021 1:55 PM ACP-Power of Program Facilitator 01/29/2021 1:55 PM Latest Code Status on [...] their office 10-14 days after surgery. Call [phone] to schedule/confirm. No alcoholic beverages, no driving [...] section and content) DATE CREATED AUTHOR 02/10/2021 [facility] DATE CREATED AUTHOR AUTHOR'S ORGANIZ ATION 03/31/2022 [facility] [place] [facility] DATE CREATED AUTHOR AUTHOR'S ORGANIZ ATION 04/13/2022 [facility] DATE CREATED AUTHOR AUTHOR'S ORGANIZ ATION 04/26/[address] [facility] dical Specialist DATE CREATED AUTHOR AUTHOR'S ORGANIZ ATION 04/26/2022 [facility] DATE CREATED AUTHOR AUTHOR'S ORGANIZ ATION 03/19/2023 [facility] DATE CREATED AUTHOR AUTHOR'S ORGANIZ ATION 02/12/2024 [facility] DATE CREATED AUTHOR AUTHOR'S ORGANIZ ATION 03/03/[address] [facility] dical Specialists EPIC DATE CREATED AUTHOR AUTHOR'S ORGANIZ ATION 05/11/2025 [facility] Reason for Visit (unrecogniz ed section and content) Status Reason Specialty Diagnoses / Procedures Referre d By Contact Referred To Contact Diagnoses Acute medial meniscal tear Lateral meniscus tear MEDIAL MENISCAL TEAR, LATERAL MENISCUS TEAR Procedures MN ARTHRS KNE SURG W/MENISCECTOMY MED/LAT W/SHVG MN ARTHRS KNEE W/MENISCECTOMY MED&LAT W/SHAVING KNEE ARTHROSCOPY WITH MENISCECTOMY right Endy Cruz MD [address] [place] [address] [facility] [employer] Reason Comments Groin Swelling Specialty Diagnoses / Procedures Referred By Eric jay Referred To Contact Diagnoses 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) STENOSIS OF CERVICAL SPINE WITH MYELOPATHY Procedures MN OFFICE/OUTPT VISIT,PROCEDURE ONLY MN ARTHRODESIS ANT INTERBODY INC DISCECTOMY, CERVICAL BELOW C2 MN ARTHRODESIS ANT INTERBODY INC DISCECTOMY CERVICAL BELOW C2 EA ADDL MN INSJ BIOMCHN DEV INTERVERTEBRAL DSC SPC W/ARTHRD MN ALLOGRAFT FOR SPINE SURGERY ONLY MORSELIZED AUTOGRAFT SPINE SURGERY LOCAL FROM SAME INCISION ANTERIOR CERVICAL DISECTOMY FUSION C5,6 AND C6,7 WITH SSEP MONITORING ( GLOBUS)-EVOKES# LOVE, CONF#[id number] Endy Cruz MD [address] [place] [address] [employer] [facility] [address] [place] [address] Referral ID Status Reason Start Date Expiration Date Visits Re quested Visits Authorized [id number] 1 1 Specialty Diagnoses / Procedures Referred By Eric jay Referred To Contact Diagnoses 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) Spondylosis CERVICAL STENOSIS WITH MYELOPATHY, SPONDYLOSIS Procedures MN TOTAL DISC ARTHROPLASTY, CERVICAL, SINGLE MN ARTHRODESIS ANT INTERBODY INC DISCECTOMY, CERVICAL BELOW C2 MN ARTHRODESIS ANT INTERBODY INC DISCECTOMY CERVICAL BELOW C2 EA ADDL MN INSJ BIOMCHN DEV INTERVERTEBRAL DSC SPC W/ARTHRD MN ALLOGRAFT FOR SPINE SURGERY ONLY MORSELIZED AUTOGRAFT SPINE SURGERY LOCAL FROM SAME INCISION MN TOTAL DISC ARTHROPLASTY, CERVICAL, SINGLE MN TOT DISC ARTHRP ANT APPR DISC 2ND LEVEL CERVICAL ANTERIOR CERVICAL DISC ARTHROPLASTY C3-4, C4-5 (KYLIE BIOMET MOBI-C, SUPINE) SHORT STAY Endy Cruz MD [address] [place] [address] [facility] [address] [place] [address] Referral ID Status Reason Start Date Expiration Date Visits Re quested Visits Authorized [id number] 1 1 Specialty Diagnoses / Procedures Referred By Contac t Referred To Contact Diagnoses Right carpal tunnel syndrome Right carpal tunnel syndrome [G56.01] Procedures [place] NEUROPLASTY &/TRANSPOS MEDIAN NRV CARPAL TUNNE RIGHT CARPAL TUNNEL RELEASE Endy Cruz MD [address] [place] [address] [facility] [address] [place] [address] Referral ID Status Reason Start Date Expiration Date Visits Re quested Visits Authorized [id number] 1 1 Reason Onset Date Comments Advice [...] 1 tablet 1 06/17/2022 06/17/2022 nystatin (MYCOSTATIN) [id number] UNIT/GM ointment Apply topically 2 times daily. [...] Dates Marito Villalobos MD Attending Provider Active Store Clerk Cashier Relationship Specialty Start Date End Date Davie Hernandes PCP - General 07/20/12 Store Clerk Cashier Relationship Specialty Start Date End Date Niki Pearson MD [address] [place] [address] PCP - General Family Medicine 08/28/22 Store Clerk Cashier Relationship Specialty Start Date End Date Niki Pearson MD [address] [place] [address] PCP - General Family Medicine 08/28/22 Store Clerk Cashier Relationship Specialty Start Date End Date Niki Perason MD [address] [place] [address] PCP - General Family Medicine 08/28/22 Store Clerk Cashier Relationship Specialty Start Date End Date Niki Pearson MD [address] [place] [address] PCP - General Family Medicine 08/28/22 Store Clerk Cashier Relationship Specialty Start Date End Date Niki Pearson MD [address] [place] [address] PCP - General 02/23/25 Store Clerk Cashier Relationship Specialty Start Date End Date Niki Pearson MD [address] [place] [address] PCP - General 02/23/25 Store Clerk Cashier Relationship Specialty Start Date End Date Niki Pearson MD PCP - General 02/23/25 Goals (unrecognized section and content) Goals may be documented in a n alternate section Scheduled Active and Recently Administ ered Medications (unrecognized section and content) Medication Order 06/15/2022 06/16/2022 06/17/2022 oxyCODONE (ROXICODONE) immediate release tablet 5 mg (COMPLETED) 5 mg, Oral, ONCE, 1 dose, On Fri06/17/22 at 1815 1813 (Given - Provid er: Tracy Ptaiño RN) Scheduled Medication Order 09/02/2022 09/03/2022 09/04/2022 [...] Until Discontinued 2253 (Not Given - Provider: Praneeht Currie RN - Reason: Patient/family refused) 0756 (Given - Provider: Manuel Kaplan RN) 0839 (Given - Provider: Jacqui Renteria, [place]) carvedilol (COREG) tablet 6.25 mg 6.25 mg, Oral, 2 TIMES DAILY WITH MEALS, First dose on Fri09/03/22 at 1700, Until Discontinued, Administer with food to minimize the risk of orthostatic hypotension 1649 (Given - Provider: Jacqui Renteria RN) 0839 (Given - Provider: Jacqui Renteria RN)1700 (Due) ceFAZolin (ANCEF) 2000 mg in sterile water 20 mL IV syringe (COMPLETED) 2,000 mg, IntraVENous, ONCE, 1 dose, On Fri09/02/22 at 0745, Antimicrobial Indications: Surgical Prophylaxis, On way to or Administer over 5 mins., Pre-op (day of surgery) 0922 (Given - Provider: Theresa Bernal, YARN DYER - POULTRY OFFAL WORKER) ceFAZolin (ANCEF) 2000 mg in sterile water [...] on Fri09/02/22 at 1700, For 3 doses 1649 (Given - Provider: Jacqui Renteria RN) 0133 (Given - Provider: Praneeth Currie RN)0757 (Given - Provider: Manuel Kaplan, [place]) escitalopram (LEXAPRO) tablet 10 mg 10 mg, Oral, DAILY, First dose on Fri09/02/22 at 2030, Until Discontinued 2252 (Not Given - Provider: Praneeth Currie [...] dose on Fri09/02/22 at 2100, Until Discontinued 2258 (Not Given - Provider: Praneeth Currie RN - Reason: Patient/family refused) 0759 (Given - Provider: Manuel Kaplan RN)1400 (Not Given - Provider: Manuel Kaplan RN - Reason: Patient/family refused)1649 (Given - Provider: Jacqui Renteria RN)2332 (Not Given - Provider: Praneeth Currie RN - Reason: Patient/family refused) gabapentin (NEURONTIN) tablet 800 mg 800 mg, Oral, 2 TIMES DAILY BEFORE MEALS, First dose on Fri09/04/22 at 0700, Until Discontinued 657 (Given - Provider: Praneeth Currie RN)1599 (Due) glipiZIDE (GLUCOTROL) tablet 5 mg (CANCELED) [...] 2305 (Given - Provider: Praneeth Currie RN) 2100 [...] patch to hairless area behind the ear. 0809 (Patch Applied - Provider: Sandra Jones RN [...] Midline or Central Line = 20 mL/lumen 215 (Not Given - Provider: Praneeth Currie RN - Reason: IV Fluid Infusing) 0757 (Given - Provider: Manuel Kaplan RN)2106 (Not [...] refused)2313 (Given - Provider: Praneeth Currie RN) 2099 (Due) Continuous Medication Order 09/02/2022 09/03/2022 09/04/2022 0.9 % sodium chloride infusion (CANCELED) IntraVENous, at 100 mL/hr, CONTINUOUS, Starting on 10/24/22 at 1330, May decrease/DC as patient tolerates [...] Provider: Jacqui Renteria RN) bupivacaine-EPINEPHrine (MARCAINE-w/EPINEPHRINE) 0.25% -1:[id number] injection (CANCELED) PRN, Starting on Fri09/02/22 at 0943, Until Fri09/02/22 at 1126, Intra-op 0943 (Given - Provider: Endy Cruz MD - Comment: INJECTED AT OP SITE) cyclobenzaprine (FLEXERIL) tablet 5 mg 5 mg, Oral, NIGHTLY PRN, Starting on Fri09/03/22 at 2100, Until Discontinued, Muscle spasms 2149 (Given - Provider: Praneeth Currie RN) dextrose [...] tablet), Oral, PRN, Starting on Fri09/02/22 at 2010, Until Discontinued, Low blood sugar, If blood [...] (Given - Provider: Tia Benton - Comment: [id number] 02/2025) morphine (PF) injection 2 mg (COMPLETED) [...] Kayleigh Munguia, RN)1233 (Given - Provider: Kayleigh Munguia, RN) ondansetron (ZOFRAN) injection 4 mg 4 [...] Jacqui Renteria, RN)2302 (Given - Provider: Praneeth Currie RN) 0840 (Given - Provider: Jacqui Renteria, [...] (Given - Provider: Cm Serrano APRN - POULTRY OFFAL WORKER) ceFAZolin (ANCEF) 2000 mg in sterile water [...] Until Discontinued 2214 (Given - Provider: Jacqui Renteria RN) 2100 (Due) dexamethasone (DECADRON) injection 4 mg (COMPLETED) 4 mg, IntraVENous, EVERY 8 HOURS, First dose on Fri10/28/22 at 1545, For 3 doses 1527 (Given - Provider: Manuel Kaplan RN) 0034 (Given - Provider: Jacqui Renteria RN)0622 (Given - Provider: Jacqui Renteria RN) escitalopram [...] Reason: Other) 0907 (Given - Provider: Deloris Chnog RN) insulin lispro (HUMALOG) injection vial 0-4 [...] Discontinued 1315 (Given - Provider: Manuel Kaplan, RN) 0908 (Given - Provider: Deloris Chong RN) scopolamine (TRANSDERM-SCOP) transdermal patch 1 patch [...] Renteria RN - Reason: IV Fluid Infusing) 09 (Not Given - Provider: Deloris Chong RN - Reason: IV Fluid Infusing)2100 (Due) traZODone (DESYREL) tablet 100 mg 100 mg, Oral, NIGHTLY, First dose on Fri10/28/22 at 2100, Until Discontinued 222 (Given - Provider: Jacqui Renteria RN) 2100 (Due) Vitamin D (CHOLECALCIFEROL) tablet 6,000 Units Labeling may look different. 25 ahe=3017 Units. Please double check dosages., 6,000 Units, Oral, DAILY, First dose on Fri10/29/22 at 0900, Until Discontinued 09 (Given - Provid er: Deloris Chong RN) Continuous Medication Order 10/27/2022 10/28/2022 10/29/2022 lactated ringers infusion 125 mL/hr, IntraVENous, CONTINUOUS, Starting on Fri10/28/22 at 1030, Continue until urine output > 30 cc/hr and patient has resumed normal oral intake 1159 (New Bag - Provider: Manuel Kaplan RN) 0627 (New Bag - Provider: Jacqui Renteria, [place]) PRN Medication Order 10/27/2022 10/28/2022 10/29/2022 0.9 [...] rate field of order. bupivacaine-EPINEPHrine (MARCAINE-w/EPINEPHRINE) 0.25% -1:[id number] injection (CANCELED) PRN, Starting on Fri10/28/22 at [...] PACU only 1107 (Given - Provider: Warren Karimi, [place]) HYDROmorphone (DILAUDID) injection 0.5 mg (COMPLETED) HYDROmorphone [...] mg from all sources in 24 hours. 2213 (Given - Provider: Jacqui Rocío, RN) 0314 (Given - Provider: Jacqui Renteria RN)0730 (Given - Provider: Jacqui Renteria, RN)1150 (Given - Provider: Deloris Chong RN) [...] hours. 1311 (Given - Provider: Manuel Kaplan, RN)1753 (Given - Provider: Manuel Kaplan, [place]) polyethylene [...] mL IVPB (mini-bag) (COMPLETED) 2,000 mg, IntraVENous, POWER MARKETER TO O.R., 1 dose, On Sonia 11/06/23 at 1100, Antimicrobial Indications: Surgical Prophylaxis, Pre-op (day of surgery) 1248 (New Bag - Prov ider: Alicia Jalloh, [employer] - POULTRY OFFAL WORKER) HYDROcodone-acetaminophen (NORCO) 5-325 MG per tablet 1 [...] of order., PACU only bupivacaine-EPINEPHrine (MARCAINE-w/EPINEPHRINE) 0.25% -1:[id number] injection (CANCELED) PRN, Starting on Sonia 1223 at 1247, Until Sonia 1223 at 1315, Intra-op 1247 (Given - Provid er: Endy Cruz MD - Comment: operative site injected prior to prep) hydrALAZINE (APRESOLINE) injection 10 mg(Linked Group 1) 10 mg, IntraVENous, EVERY 15 MIN PRN, 2 doses, Starting on Sonia 12//23 at 1307, Until Discontinued, High Blood Pressure, [...] MIN PRN, 2 doses, Starting on Sonia 12//23 at 1307, Until Discontinued, Pain Moderate (4-6), For Phase I. If Phase II oral narcotics have been administered in the last 60 minutes, do not administer IV narcotics unless specifically approved by provider., PACU only HYDROmorphone (DILAUDID) injection 0.5 mg 0.5 mg, IntraVENous, EVERY 5 MIN PRN, 2 doses, Starting on Sonia 12//23 at 1307, Until Discontinued, Pain Severe (7-10), For Phase I. If Phase II oral narcotics have been administered in the last 60 minutes, do not administer IV narcotics unless specifically approved by provider., PACU only labetalol (NORMODYNE;TRANDATE) injection 10 mg(Linked Group 1) 10 mg, IntraVENous, EVERY 15 MIN PRN, 2 doses, Starting on Sonia 12//23 at 1307, Until Discontinued, High Blood Pressure, [...] BE BASED ON THE PRIMARY CLINICAL RECORDS. [employer] provides no warranty or guarantee of the accuracy or completeness of information in this document.
[2025-05-14 10:58] LABS: Hematocrit 41.2 % (36.0-48.0); Hemoglobin 14.3 g/dL (12.0-16.0); Immature Granulocytes Abs Auto 0.01 10^3/uL (0.00-0.03); Immature Granulocytes Pct Auto 0.2 % (0.0-0.5); Lymphocytes Absolute Auto 1.8 10^3/uL (1.2-3.8); Mean Corpuscular HGB Conc 34.7 g/dL (29.9-35.2); Mean Corpuscular Hemoglobin 32.9 pg (26.7-34.0); Mean Corpuscular Volume 94.7 fL (81.0-99.0); Platelet Count 184 10^3/uL (150-450); Red Blood Count 4.35 10^6/uL (4.20-5.40); White Blood Count 5.5 10^3/uL (4.0-11.0)
== END 2025-05-14 10:42 | disposition home or self-care (01) ==
LOC: LAB 10:41
PROVIDERS: PCP Family Medicine; Visit Provider Orthopaedic Surgery
DX: M17.11 Unilateral primary osteoarthritis, right knee (principal); Z79.899 Other long term (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
CPT/HCPCS: 36415; 85025

== ENCOUNTER 2025-05-23 07:47 | Outpatient (RCR) | payer MEDICARE, OTHER, SELFPAY ==
[2025-05-19 15:53] LABS: Calcium 10.0 mg/dL (8.5-10.1); Estimated GFR (African America >60 (>=60 mL/min/1.73m^2); Estimated GFR (Non-African Ame >60 (>=60 mL/min/1.73m^2)
[2025-05-23 13:36] VITALS: BP 161/81; PULSE 83; TEMP 36.2; O2SAT 93
[2025-05-23] MEDS: DENOSUMAB 60 MG/ML SYRINGE SQ (13:50)
== END 2025-06-09 23:59 | disposition home or self-care (01) ==
LOC: INF 07:47
PROVIDERS: PCP Family Medicine; Visit Provider Orthopaedic Surgery
DX: M81.0 Age-related osteoporosis without current pathological fracture (principal); M85.88 Other specified disorders of bone density and structure, other site
CPT/HCPCS: 36415; 77080; 82310; 82565; 96372; J0897

== ENCOUNTER 2025-05-23 12:59 | Outpatient (OUT) | payer MEDICARE, OTHER, SELFPAY ==
--- OUTSIDE RECORDS SUMMARY | 2025-05-23 13:01 | XMS_ITS | Encounter Summary ---
Author Organization [facility] Address [address] [place] [address] Care Team Providers Care Silk Screen Frame Assembler Name Role Phone Levon Leahy MD Primary Care Provider [phone] Reason for Visit * Reason Comments Med Refill Encounter Details Date Type Department Care Team (Late Contact Info) Description 08/12/2023 Refill [facility] [address] [facility] [address] [place] [address] Juanjose Burgos MD [address] [facility] [address] [place] [address] [phone] Focal epilepsy (HCC) Social History Tobacco Use [...] [facility] [address] [facility] [address] [place] [address] Juanjose Burgos MD [address] [facility] [address] [place] [address] [phone] documented as of this encounter Visit Diagnoses Diagnosis Focal epilepsy (HCC) documented in this encounter Care Teams Silk Screen Frame Assembler Relationship Specialty Start Date End Date Levon Leahy MD PCP - General 02/23/25 documented as of this encounter
--- OUTSIDE RECORDS SUMMARY | 2025-05-23 13:01 | XMS_ITS | Encounter Summary ---
Author Organization [facility] Address [address] [facility] [place] [address] Care Team Providers Care Head Irrigator Name Role Phone Levon Leahy MD Primary Care Provider [phone] Encounter Details Date Type Department Care Team (Late Contact Info) Description 09/05/2023 Abstract [facility] [address] [place] [phone] Juanjose Burgos MD [address] [place] [phone] Social History Tobacco Use Types Packs/Day Years [...] Office Visit [facility] [address] [facility] [address] [place] [phone] Juanjose Burgos MD [address], [place] [phone] documented as of this encounter Visit Diagnoses Not on filedocumented in this encounter Care Teams Head Irrigator Relationship Specialty Start Date End Date Levon Leahy MD PCP - General 02/23/25 documented as of this encounter
--- OUTSIDE RECORDS SUMMARY | 2025-05-23 13:01 | XMS_ITS | Encounter Summary ---
Author Organization [facility] Address [address] [facility] [address] Care Team Providers Care Aircraft General Repair Mechanic Name Role Phone Levon Leahy MD Primary Care Provider [phone] Encounter Details Date Type Department Care Team (Late st Contact Info) Description 07/06/2024 Abstract [facility] [address] [place] [phone] Carl Zurita, DPM [address] [place] [address] Social History Tobacco Use Types Packs/Day Years [...] [facility] [address] [place] [address] Juanjose Burgos MD [address] [facility] [address] [place] [address] [phone] documented as of this encounter Visit Diagnoses Not on filedocumented in this encounter Care Teams Aircraft General Repair Mechanic Relationship Specialty Start Date End Date Levon Leahy MD PCP - General 02/23/25 documented as of this encounter
--- OUTSIDE RECORDS SUMMARY | 2025-05-23 13:01 | XMS_ITS | Encounter Summary ---
Author Organization [facility] Address [address] [place] [address] Care Team Providers Care Streetcar Starter Name Role Phone Levon Leahy MD Primary Care Provider [phone] Encounter Details Date Type Department Care Team (Late st Contact Info) Description 04/09/2023 Abstract [facility] [address], [place] [phone] Juanjose Burgos MD [address], [place] [address] Social History Tobacco Use Types Packs/Day Years [...] 06/01/2025 3:20 PM EDT Office Visit [facility] [address] [place] [address] Juanjose Burgos MD [address] [address] documented as of this encounter Visit Diagnoses Not on filedocumented in this encounter Care Teams Streetcar Starter Relationship Specialty Start Date End Date Levon Leahy MD PCP - General 02/23/25 documented as of this encounter
--- OUTSIDE RECORDS SUMMARY | 2025-05-23 13:01 | XMS_ITS | Clinical Summary ---
Author Organization [facility] Address [address] [place] [address] Care Team Providers Care Die Sinker Name Role Phone Levon Leahy MD Primary Care Provider [phone] Allergies Active Allergy Reactions Criticality Noted Date [...] (twelve) hours. Active beta carotene (Vitamin A) 02919 units capsule Take 25,000 Units by mouth. [...] (800 mg) before bedtime. 120 tablet 3 5 Active clonazePAM (KlonoPIN) 0.5 MG tabletIndicatio ns:Seizure (HCC) Take 1 tablet (0.5 mg) by mouth in the morning and 1 tablet (0.5 mg) in the evening and 1 tablet (0.5 mg) before bedtime. 270 tablet 5 05/31/20 25 Active busPIRone (Buspar) 10 MG tabletIndicatio ns:Anxiety Take 1 tablet (10 mg) by mouth Daily 90 tablet 5 03/31/20 26 Active phenytoin ER (Dilantin) 30 MG capsuleIndicati ons:Generalized seizure disorder (HCC) Take 1 capsule (30 mg) by mouth Daily Total of 10 capsules per week. 90 capsule 3 5 08/02/20 25 Active phenytoin ER (Dilantin) 100 MG capsuleIndicati ons:Focal epilepsy (HCC) TAKE 3 CAPSULES BY MOUTH AT BEDTIME 270 capsule 3 5 Active Dilantin 30 MG capsuleIndicati ons:Generalized seizure disorder (HCC) Take 1 capsule (30 mg) by mouth Daily Total of 10 capsules per week. 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 Trochanteric bursitis, right hip 09/23/2024 Arthritis of left knee 03/25/2024 Pure hyperglyceridemia 12/25/2023 Pure hypercholesterolemia, unspecified Acute carpal tunnel syndrome of right wrist [...] Encounters Date Type Department Care Team Description 05/04/2025 Telephone [facility] [address] [place] [address] Gretchen Sal NP 04/05/2025 Refill [facility] [address] [facility] [address] [place] [address] Juanjose Burgos MD Anxiety (Primary Dx) 03/02/2025 3:20 PM EDT Office Visit [facility] [address] [facility] [address] [place] [address] Juanjose Burgos MD Chronic insomnia; Focal epilepsy (HCC); Generalized seizure disorder (HCC); Seizure (HCC) 03/02/2025 Bamboo flowsheet [facility] [address] [place] [address] Juanjose Burgos MD 03/02/2025 Travel [...] Visit [facility] [address] [place] [address] Juanjose Burgos MD [address], [place] [phone] Insurance [employer] Care Teams Die Sinker Relationship Specialty Start Date End Date Levon Leahy MD PCP - General 02/23/25
== END 2025-05-23 13:00 | disposition home or self-care (01) ==
LOC: RAD 12:59
PROVIDERS: PCP Family Medicine
DX: M85.88 Other specified disorders of bone density and structure, other site (principal)
CPT/HCPCS: 77080

== ENCOUNTER 2025-10-14 09:52 | Outpatient (OUT) | payer MEDICARE, OTHER, SELFPAY ==
--- NOTE | 2025-10-14 09:55 | MR_ITS ---
[address] [address] Patient Name: DACIA BENJAMIN MRN: [facility]:[id number] date: 1960 Sex: F Assigned Patient Location: MRI Current Patient Location: LAB Accession/Order Number: [id number] Exam Date: 10/14/2025 10:15 Report Date: 10/14/2025 15:48 At the request of: ENDY BOLIVAR Procedure: MR lumbar spine wo con MR lumbar spine wo con 10/14/2025 10:59 AM SIGNS AND SYMPTOMS: ^Lumbar Spinal Stenosis, lumbar pain radiating into bilateral lower extremities PROTOCOL: Multiplanar multisequence MR images of the lumbar spine without IV contrast COMPARISON: None. FINDINGS: The bones of the lumbar spine are in anatomic alignment. There is preservation of vertebral body heights. There is severe disc height loss at L2-3 with Modic type II fatty endplate degenerative change. There is mild disc height loss at L3-L4. There is posterior and intervertebral fusion L4-S1. Schmorl's node formation is noted at T11 and T12. The conus terminates at the L1-L2 intervertebral disc level. No epidural or paraspinous fluid collection is appreciated. At T12-L1: There is a broad-based disc bulge with facet hypertrophy. There is no significant stenosis. At L1-L2: There is a normal disc, central canal, and neural foramen. At L2-L3: There is a circumferential disc bulge with facet hypertrophy and endplate osteophyte formation. There is moderate to severe left and severe right neural foraminal narrowing with mass effect on the exiting L2 nerve roots. At L3-L4: Hardware artifact obscures visualization of the spinal canal and neural foramina. At L4-L5: Hardware artifact obscures visualization of the spinal canal and neural foramina. At L5-S1: Hardware artifact obscures visualization of the spinal canal and neural foramina. MR/MR lumbar spine wo con IMPRESSION: At L2-L3: There is a circumferential disc bulge with facet hypertrophy and endplate osteophyte formation. There is moderate to severe left and severe right neural foraminal narrowing with mass effect on the exiting L2 nerve roots. At L3-L4: Hardware artifact obscures visualization of the spinal canal and neural foramina. At L4-L5: Hardware artifact obscures visualization of the spinal canal and neural foramina. At L5-S1: Hardware artifact obscures visualization of the spinal canal and neural foramina. Impression dictated by: Dalton Mayer M.D. 10/14/2025 3:48 PM Dictation Location: [place] [address] Electronically authenticated by: [id number] Y Date: 10/14/2025 15:48
--- OUTSIDE RECORDS SUMMARY | 2025-10-14 09:55 | XMS_ITS | Patient Health Record ---
Author Organization [facility] Address [address] [place] [address] Care Team Providers Care Survey Cad Technician Name Role Phone Kleber Leahy Primary Care Provider CarmellaDenny [phone] Allergies Allergen (clinical drug ingredient) Drug/Non Drug Allergy documented on EMR Reaction Allergy Type Onset Date Status codeine Codeine Derivatives (uncoded) Itching; Vomiting ; Allergy ActiveSubstance with sulfonamide structure and antibacterial mechanism of action (substance)sulfa (uncoded)UnknownAllergyActivecelecoxibCeleBREXUnknownDrug AllergyActivecelecoxibCelecoxibUnknownDrug AllergyActiveoxaprozinDayproUnknown Drug AllergyActiveDiclofenac-miSOPROStolUnknownDrug AllergyActiveGlutaralUnknown Drug AllergyActiveAdhesive TapeUnknownDrug AllergyActiveNon-steroidal anti- inflammatory agent (FN)NSAIDsUnknownDrug AllergyActive Results Component Value Reference Range Notes CBC AUTO DIFF Reviewed date:10/25/2024 02:09:39 PM Interpretation: Performing Lab: Notes/Report: [facility] , White Blood Count 6.0 4.0-11.0 10 3/uL Red Blood Count4.644.20-5.40 10 6/eVQajpjeemaw75.812.0-16.0 g/sERcvfcgfrmg33.1 36.0-48.0 %Mean Corpuscular Mndnup03.081.0-99.0 fLMean Corpuscular Hemoglobin 31.926.7-34.0 pgMean Corpuscular HGB Conc33.629.9-35.2 g/dLRed Cell Distribution Width12.811.0-15.0 %Platelet Pmism983135-897 10 3/uLMean Platelet Volume9.39.5- 13.5 fLNeutrophils Percent Auto49.543.0-75.0 %Lymphocytes Percent Auto34.420.5- 60.0 %Monocytes Percent Auto9.71.7-12.0 %Eosinophils Percent Auto5.50.9-7.0 % Basophils Percent Auto0.70.2-2.0 %Immature Granulocytes Pct Auto0.20.0-0.5 % Neutrophils Absolute Auto3.01.4-6.5 10 3/uLLymphocytes Absolute Auto2.11.2-3.8 10 3/uLMonocytes Absolute Auto0.60.3-0.8 10 3/uLEosinophils Absolute Auto0.30.0- 0.7 10 3/uLBasophils Absolute Auto0.00.0-0.1 10 3/uLImmature Granulocytes Abs Auto0.010.00-0.03 10 3/uLPerforming Lab:see noteML - [facility] LB DIRECT LDL Reviewed date:10/25/2024 02:09:39 PM Interpretation: Performing Lab: Notes/Report: [facility] ,LDL Cholesterol Xfuxvc633 160-189 mg/dl HIGH <100 mg/dl OPTIMAL 130-159 mg/dl BORDERLINE HIGH >190 mg/dl VERY HIGH 100-129 mg/dl NEAR OR ABOVE OPTIMAL Performing Lab:see noteML - [facility] LBFREE T3 Reviewed date:10/25/2024 02:09:39 PM Interpretation: Performing Lab: Notes/Report: [facility] ,Free T32.452.18-3.98 pg/mLPerforming Lab:see noteML - [facility] LB GLYCOHEMOGLOBIN A1C Reviewed date:10/25/2024 02:09:39 PM Interpretation: Performing Lab: Notes/Report: [facility] ,Glycohemoglobin A1C6.44.5-6.2 % > 7.0 ACTION SUGGESTED ADA RECOMMENDED LIMIT 4.0 - 6.0 ADA THERAPEUTIC TARGET < 7.0 Estimated Average Mqfatsp240Spwydjmnol Lab:see note - [facility] LB IRON Reviewed date:10/25/2024 02:09:39 PM Interpretation: Performing Lab: Notes/Report: [facility] ,Iron95.050.0-170.0 ug/dLPerforming Lab:see note - [facility] LB LIPID PROFILE Reviewed date:10/25/2024 02:09:39 PM Interpretation: Performing Lab: Notes/Report: [facility] ,Yhcpmfsyalpcr113<=150 mg/kTEvfikjfquen013<=200 mg/dLHDL Rqgxjffbvkl5900-33 mg/dL <40 mg/dl - HIGH CARDIOVASCULAR RISK > or =60 mg/dl - LOW CARDIOVASCULAR RISK VLDL RHFWWGFYHIH01.4Chol HDL Ratio7.2 7.1 - 11.0 MODERATE RISK 4.4 - 7.1 AVERAGE RISK >11.0 HIGH RISK 3.3 - 4.4 LOW RISK Performing Lab:see note - [facility] LBPROF 14(COMP METB) Reviewed date:10/25/2024 02:09:39 PM Interpretation: Performing Lab: Notes/Report: [facility] ,Njeedw129333-735 mmol/LPotassium4.53.5-5.1 mmol/KBhrnjuiu99126-299 mmol/LCarbon Wrerelu11.021.0-32.0 mmol/LAnion Gap11.4Rnpjopu72974-305 mg/dLBlood Urea Gnwusyeu93.07.0-18.0 mg/dLCreatinine1.040.55-1.02 mg/dLEstimated GFR ( Katerina>60>=60 mL/min/1.73m 2Estimated GFR (Non- Ame53>=60 mL/min/1.73m 2 BUN Creatinine Ratio18.1Hojplko4.48.5-10.1 mg/dLBilirubin Total0.40.2-1.0 mg/dL Aspartate Amino Xeehxyyunsx3664-78 U/LAlanine Rskkgaxgtctdynvt6808-78 U/L Alkaline Juwvbjbwpbb6628-912 U/LTotal Protein7.76.4-8.2 g/dLAlbumin Level4.03.4- 5.0 g/dLGlobulin3.7Albumin Globulin Ratio1.1Performing Lab:see noteML - [facility] LBT4 Reviewed date:10/25/2024 02:09:39 PM Interpretation: Performing Lab: Notes/Report: [facility] ,T4 Thyroxine6.604.80-13.90 ug/dLPerforming Lab:see note - [facility] LBTSH Reviewed date:10/25/2024 02:09:39 PM Interpretation: Performing Lab: Notes/Report: [facility] ,Thyroid Stimulating Hormone2.2550.358-3.740 uIU/mLPerforming Lab:see note - [facility] LBVITAMIN D 25 [place] Reviewed date:10/25/2024 02:09:39 PM Interpretation: Performing Lab: Notes/Report: [facility] ,Vitamin D66.1 20-<30 ng/mL Vit D insufficient 30-100 ng/mL Vit D sufficient <20 ng/mL Vit D deficient >100 ng/mL Potential Toxicity Performing [facility] LBCALCIUM Reviewed date:05/19/2025 06:19:23 PM Interpretation: Performing Lab: Notes/Report: [facility] ,Nqyeexn95.08.5-10.1 mg/dLPerforming Lab:see note - [facility] LB CREATININE Reviewed date:05/19/2025 06:19:23 PM Interpretation: Performing Lab: Notes/Report: [facility] ,Creatinine0.770.55-1.02 mg/dLEstimated GFR ( Katerina>60>=60 mL/min/1.73m 2Estimated GFR (Non- Adilene>60>=60 mL/min/1.73m 2Performing Lab:see note - [facility] LBCBC AUTO DIFF Reviewed date:05/16/2025 08:27:39 AM Interpretation: Performing Lab: Notes/Report: [facility] ,White Blood Count5.54.0-11.0 10 3/uLRed Blood Count4.354.20-5.40 10 6/uL Jgbqeusmmy08.312.0-16.0 g/tITvczzvcqlm55.236.0-48.0 %Mean Corpuscular Buhpwj77.7 81.0-99.0 fLMean Corpuscular Nazwntvhna51.926.7-34.0 pgMean Corpuscular HGB Conc 34.729.9-35.2 g/dLRed Cell Distribution Width12.811.0-15.0 %Platelet Gmrze753 150-450 10 3/uLMean Platelet Volume9.89.5-13.5 fLNeutrophils Percent Auto51.9 43.0-75.0 %Lymphocytes Percent Auto31.920.5-60.0 %Monocytes Percent Auto10.11.7- 12.0 %Eosinophils Percent Auto5.40.9-7.0 %Basophils Percent Auto0.50.2-2.0 % Immature Granulocytes Pct Auto0.20.0-0.5 %Neutrophils Absolute Auto2.91.4-6.5 10 3/uLLymphocytes Absolute Auto1.81.2-3.8 10 3/uLMonocytes Absolute Auto0.60.3-0.8 10 3/uLEosinophils Absolute Auto0.30.0-0.7 10 3/uLBasophils Absolute Auto0.00.0- 0.1 10 3/uLImmature Granulocytes Abs Auto0.010.00-0.03 10 3/uLPerforming Lab:see noteML - [facility] LBMM tomosynthesis screening BI Reviewed date:05/05/2025 06:58:32 PM Interpretation: Performing Lab: Notes/Report: Source Facility: [place] [id number] [place] [address] Mammography Report Signed Patient: DACIA BENJAMIN MR#: [id number] : 1960 Acct:[id number] Age/Sex: 64 / F ADM Date: 05/04/25 Loc: LAB Attending Dr: Nubia Manriquez M.D. Ordering Physician: Nubia Manriquez M.D. Results: Date of Service: 05/04/25 Follow Up: Procedure(s): MM tomosynthesis screening BI Accession Number(s): [id number] cc: Levon Leahy M.D.; Nubia Manriquez M.D. Patient Name: DACIA BENJAMIN MR#: [id number] : 1960 Exam Date: 05/04/2025 Ordering Doctor: NON-STAFF PHYSICIAN RADIOLOGY REPORT PROCEDURE: MM TOMOSYNTHESIS SCREENING BI COMPARISON: MM TOMOSYNTHESIS SCREENING BI, 03/31/2024. MG MAMM SCREEN 3D PAU CAD, 03/11/2023. MG MAMM SCREEN PAU W CAD, 11/29/2014. INDICATIONS: Screening Calculator Name NCI Breast Cancer Risk Assessment Tool 5 Year Breast Cancer Risk 2.40% Lifetime Breast Cancer Risk 8.60% Personal Breast Cancer No Personal Ovarian Cancer No Treatments None Family Cancers Niece with breast cancer at age 50; Mother with ovarian cancer at age 93; Sister with uterine cancer at age 63. LOCATION: [facility] BREAST COMPOSITION: There are scattered areas of fibroglandular density. FINDINGS: DIAGNOSTIC CATEGORY 1--NEGATIVE. RIGHT BREAST: No significant suspicious finding. LEFT BREAST: No significant suspicious finding. RECOMMENDATIONS: ROUTINE MAMMOGRAM AND CLINICAL EVALUATION IN 12 MONTHS. PLEASE NOTE: A NORMAL MAMMOGRAM DOES NOT EXCLUDE THE POSSIBILITY OF BREAST CANCER. A CLINICALLY SUSPICIOUS PALPABLE LUMP SHOULD BE BIOPSIED. Dictated by: Denny Lorenzo DO on 05/04/2025 at 15:52 Approved by: Denny Lorenzo DO on 05/04/2025 at 15:53 Dictated By: Denny Lorenzo M.D. Signed By: 05/04/25 1554 DD/ 1553 TD/TT: Engine Service Repairer:GLYCOHEMOGLOBIN A1C Reviewed date:05/05/2025 06:58:32 PM Interpretation: Performing Lab: Notes/Report: [facility] ,Glycohemoglobin A1C6.14.5-6.2 % ADA THERAPEUTIC TARGET < 7.0 > 7.0 ADA RECOMMENDED LIMIT 4.0 - 6.0 ACTION SUGGESTED Estimated Average Trjgxdw403Uisjlzhmwx Lab:see noteML - [facility] LB Reason For Referral No Information Medications Medication SIG (Take, Route, Frequency, Duration) Notes Start Date End Date Status Gabapentin 800 MG 1 tablet Orally QID espilepsy ActivebusPIRone HCl 10 MG1 tablet Orally Once a dayActiveOne Touch Ultra Test Strips -use one test strip via meter once daily; Duration: 90 days05/01/2023 ActiveBiotinActiveMultivitaminActiveCarvedilol 6.25 MG1 tablet Orally Twice a day Orally Twice a day; Duration: 30 daysActiveProbioticActiveCalciumActive Pioglitazone HCl 30 MG1 tablet Orally Once a day; Duration: 90 daysActiveAspirin 81 81 MG1 tablet Orally Once a day; Duration: 30 day(s)ActiveMelatoninActive AlfalfaActiveLecithinActiveBeta CaroteneActiveMometasone Furoate 50 MCG/ACT2 sprays in each nostril Nasally Twice a dayallergiesActiveB ComplexActiveMilk ThistleActiveglipiZIDE 5 MG1 tab Orally Once a day; Duration: 90 daysActive GarlicActiveCoQ-10ActiveclonazePAM 0.5 MG3 tablet Orally at bedtimesleepActive Dilantin 30mg2 capsules Tues, Th, SatepilepsyActiveVitamin EActiveDilantin 100 MG3 tablets Orally at bedtimeepilepsyActiveVitamin D 50 MCG (1999)1 tablet Orally Once a dayActiveFish OilActiveEscitalopram Oxalate 10 MG1 tablet Orally Once a dayanxietyActiveZyrTEC AllergyActiveCyclobenzaprine HCl 10 MG1/4- 1/2 tab at bedtime Orally Once a daymuscle spasms/painActivetraZODone HCl 50 MG3 tablets at bedtime as needed Orally Once a dayActiveCurcumin 95ActivetiZANidine HCl 2 MG1 tablet as needed Orally Three times a dayActiveDilantin 30 MG1 capsule Orally Porter,M,W,FActiveVitamin D 50 MCG (1999)1 tablet Orally Once a mje8670r ActivedexAMETHasone 0.5 MG/5ML10 mL Orally every 6 hrsActiveVitamin CActive ProliaActiveCPAPActiveSimvastatin 20 MG1 tablet in the evening Orally Once a day; Duration: 30 days3ActiveRed Yeast RiceActive Social History Tobacco Use: Social History Observation Description Date Details (start date - stop date) Never Smoker NA - NA Tobacco Use/Smoking Question Answer Notes Patient is a nonsmoker Alcohol Screen (Audit-C) Question Answer Notes Did you have a drink containing alcohol in the p ast year? No Yyfeal7LtftpukcxyllawKcvtztypTqfnwl History Question Answer Notes Had sex in the past 12 months (vaginal, oral, or anal)? Yes withMen onlyUse protection?NoHave you ever had a Sexually transmitted disease?No Last menstrual years agoTobacco Control (Standard) Question Answer Notes Tobacco use: Nonsmoker AUDIT-C (Standard) Question Answer Notes Did you have a drink containing alcohol in the p ast year? Yes How often did you have six or more drinks on one occasion in the past year?Never (0 point)How many drinks did you have on a typical day when you were drinking in the past year?1 or 2 drinks (0 point)How often did you have a drink containing alcohol in the past year?Monthly or less (1 point)Nhqlji4RhopdcebliiszgWzeguaua Problems Problem Type SNOMED Code ICD Code Onset Dates Problem Status W/U Status Risk Notes Problem Obesity (143971220) Other obesity (E66.8) ActiveconfirmedProblemPure hyperglyceridemia (279920183)Pure hyperglyceridemia (E78.1)ActiveconfirmedProblemCarpal tunnel syndrome (57927616)Carpal tunnel syndrome, left upper limb (G56.02)ActiveconfirmedProblemSpinal cord disorder (97013283)Disease of spinal cord, unspecified (G95.9)ActiveconfirmedProblem Osteoarthritis (600076311)Unspecified osteoarthritis, unspecified site (M19.90) ActiveconfirmedProblemEnthesopathy (75589651)Other enthesopathies, not elsewhere classified (M77.8)ActiveconfirmedProblemDisorder of bone (54569816)Other specified disorders of bone density and structure, unspecified site (M85.80) ActiveconfirmedProblemPostmenopausal atrophic vaginitis (15765153)Postmenopausal atrophic vaginitis (N95.2)ActiveconfirmedProblemObesity (217502635)Obesity (E66.9)ActiveconfirmedProblemAtrophy of vagina (199795318)Vaginal atrophy (N95.2)ActiveconfirmedProblemBody mass index 30.00 to 34.99 (108016398226145)BMI 31.0-31.9,adult (Z68.31)ActiveconfirmedProblemCandidiasis of vagina (disorder) (25308503)Isabela vaginitis (B37.3)ActiveconfirmedProblemEssential hypertension (02873033)Essential (primary) hypertension (I10)ActiveconfirmedProblemArthritis of left knee (4204153532044086)Arthritis of knee, left (M19.90)Activeconfirmed ProblemUlceration of vulva (06957429)Vulvar ulcer (N76.6)ActiveconfirmedProblem Pure hypercholesterolemia (233051658)Pure hypercholesterolemia, unspecified (E78.00)ActiveconfirmedProblemSwelling of vulva (052499830)Swelling of vulva (N90.89)ActiveconfirmedProblemDysplasia of vagina (7352771)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)ActiveconfirmedProblemHerpetic vulvovaginitis (42904348)Herpes simplex virus (HSV) infection of vagina (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 ([place], [place]) [address] [place] [address] 05/02/2025 Kleber Hoy Diabetes mellitus E1 1.9 ; Essential (primary) hypertension I10 ; Pure hypercholesterolemia, unspecified E78.00 and Osteoarthritis of right knee M17.11 [facility] ([place], [place]) [address] [place] [address] 10/25/2024 Kleber Hoy Diabetes mellitus E1 1.9 [facility] ([place], [place]) [address] [place] [address] 10/25/[address] [facility] ([place], [place])[address] [place] [address] 4Doug HoyDiabetes mellitus E11.9[facility] [place] [address]/Doug [facility] [address] [place] [address]/[facility] [address] [facility] [place] [address]/09/2025[facility] [address] [place] [address]/[facility] Assessments Encounter Date Diagnosis (ICD Code) Assessment Notes Treatment Notes Treatment Clinical Notes Section Notes 05/02/2025 Diabetes mellitus (ICD-10 - E11. 9) ate poorly ad sugar not bad05/02/2025Essential (primary) hypertension (ICD-10 - I10)good contro and at home4Diabetes mellitus (ICD-10 - E11.9) 4Diabetes mellitus (ICD-10 - E11.9)05/02/2025Pure hypercholesterolemia, unspecified (ICD-10 - E78.00)on med an follow ing diet05/02/2025Osteoarthritis of right knee (ICD-10 - M17.11)Nop CP - No CAD - No Strokes - Clered for OR Plan Of Treatment Pending Test Test Name Order Date CMP (COMPLETE METABOLIC PANEL) 3 CMP (COMPLETE METABOLIC PANEL) 4 HEMOGLOBIN A1C (GLYCO) 09/17/2023 HEMOGLOBIN A1C (GLYCO) 10/11/2024 IRON, TOTAL 09/17/2023 IRON, TOTAL 10/11/2024 LIPID PANEL (CHOL/TRIG/HDL/LDL) 10/11/20 24 LIPID PANEL (CHOL/TRIG/HDL/LDL) 09/17/20 23 CBC WITH DIFF (EXP 09/2025) 09/17/2023 CBC WITH DIFF (EXP 09/2025) 10/11/2024 VITAMIN D, 25 LEVEL (TOTAL) 10/11/2024 VITAMIN D, 25 LEVEL (TOTAL) 09/17/2023 STOOL OCCULT BLOOD 09/17/2023 STOOL OCCULT BLOOD 10/11/2024 LIPID PROFILE 09/30/2023 LIVER PROFILE 09/30/2023 THYROID PANEL (T4/TSH/FREE T3) 4 THYROID PANEL (T4/TSH/FREE T3) 3 Insurance Providers Payer Name Payer Address Payer Phone Subscriber Number Group Number Insured Name Patient Relationship to Insured Coverage Start Date Coverage End Date [place]IC[place] [address] [id number] Anel Benjaminbriannaneema - patient is the insuredO MEDICARE SUPPLEMENTPO [address] [place] [id number], MaryAnnSelf - patient is the insured Medical (General) History Medical History History ICD Code Pap smear, as part of routine gynecologi maritza examination Z01.419 Other generalized epilepsy, intractable, without status epilepticus G40.419 Insomnia due to medical condition G47.01 Anxiety F41.9 Seizures R56.9 Surgical History Surgery Date(Month/Year) Right carpal Tunnel Release Revision Left Carpal Tunnel 08/2023 2 disc replacements, cervical, above spi nal fusion 10/2022 spinal fusion c5-C7 08/2022 knee scopes parotidectomy Torn Rotator Cuff and Kznyt3306BP Trigger Vztixy7439KI Knee Lsdonhaseog2716 Rsftaqmspmmrbrq3170EF Temporal Ushpvkugb0098Aiarqhzhcvq Gland Olzygsm6369Brqph Nerve Jtypueeyqnemyj7343RX Foot, 2 tunmors uqrupjn8168NM Anterior shoulder Mcokpsvnufs7146Ovpnx Ggriatbx7970SF Breast juulcgowgx5150 & 1991RT Carpal Tunnel 1985Back Fibvflt5389Quzxza Bumrps7428Qwigl SurgeryHospitalization History Reason Date(Month/Year)
--- OUTSIDE RECORDS SUMMARY | 2025-10-14 09:55 | XMS_ITS | Encounter Summary ---
Author Organization [facility] Address [id number] [address] [place] [address] Care Team Providers Care Label Fuser Tender Name Role Phone Levon Leahy MD Primary Care Provider [phone] Encounter Details DateTypeDepartmentCare Team (Latest Contact Info)Akcubjsxmce72/25/2025Results Follow-Up [facility] [address] [place] [address] Macarena Chaudhry CMA C-reactive protein, Erythrocyte Sedimentation Rate (ESR) Social History Tobacco UseTypesPacks/DayYears UsedDateSmoking Tobacco: NeverPassive Smoke Exposure: NeverSmokeless Tobacco: NeverAlcohol UseStandard Drinks/WeekCommentsNo 0 (1 standard drink = 0.6 oz pure alcohol)PHQ-2AnswerDate RecordedTotal Score0 08/04/2020ChildcareAnswerDate UwijkoyuAretmtnrjHaqvrii48/12/2019EmploymentAnswer Date HostkabgOavpejfsxjVrtqycl91/12/2019Hunger ScreeningAnswerDate Recorded Within the past 12 months we worried whether our food would run out before we got money to buy more.Never True06/13/2025Within the past 12 months the food we bought just didn't last and we didn't have money to get more.Never True 06/13/2025Purpose - LifeAnswerDate RecordedPurpose and direction in lifeUnknown 1CommentsNoSex and Gender InformationValueDate RecordedSex Assigned at BirthNot on fileLegal TaoFmicdx90/06/2015 11:23 AM EDTGender IdentityNot on fileSexual OrientationNot on filedocumented as of this encounter Plan of Treatment Not on file documented as of this encounter Goals GoalPatient Goal TypeAssociated ProblemsRecent ProgressPatient-Stated?Author improve mobility Theresa Rojas, RN Note: Evaluation of progress towards goal: Maximize work with PT at discharge to strengthen right knee Autogenerated Goal Care PlanAutogenerated ProblemNoAngelika Hidalgo Adocumented as of this encounter Visit Diagnoses Not on filedocumented in this encounter Additional Health Concerns Active ProblemsNoted DateDiagnosed DateAutogenerated Vlcrmjn16/05/2025Assessment Noted TimePHQ-9 Depression Total Score: 9:09 AM EDTdocumented as of this encounter Care Teams Team MemberRelationshipSpecialtyStart DateEnd Date Levon Leahy MD PCP - GeneralFamily Medicine11/19/21documented as of this encounter
--- OUTSIDE RECORDS SUMMARY | 2025-10-14 09:55 | XMS_ITS | CCD ---
Author Organization [facility] Inform ion [facility] Care Team Providers Care Color Consultant Name Role Phone Davie Hernandes Primary Care Provider Unavailabl e ENDY CRUZ Referring Unavailable DAVIE HERNANDES Primary Care Unavailable Davie Hernandes Primary Care Provider Niki Pearson Primary Care Physician MD Marito Villalobos Attending Provider MD Marito Villalobos Attending Provider [phone] Davie Hernandes Primary Care Provider Niki Pearson MD Primary Care Provider Niki Pearson MD Primary Care Provider DR ROCÍO REYES V Consulting Unavailable MISC, [...] Consulting Unavailable ENDY CRUZ Consulting Unavailable LILI ., DR PRINCE Primary Care Unavailable DR ROCÍO REYES V Consulting Unavailable PITA VENTURA Attending Unavailable VENTURA, PITA Admitting Unavailable [...] Unavailable MARITO VILLALOBOS Attending Unavailable MARITO VILLALOBOS Admjanice Unavailable MARITO VILLALOBOS Consulting Unavailable REZA HAYWARD Consulting Unavailable LUZ HEREDIA Unavailable Niki Pearson MD Primary Care Provider [phone] Unavailable Primary Care Provider Unavailabl ENDY Pearson Attending Unavailable NIKI PEARSON Primary Care Unavailable ENDY CRUZ Admitting Unavailable LUZ GARG Attending Unavailable NIKI PEARSON Primary Care Unavailable ENDY CRUZ Referring Unavailable NIKI PEARSON Primary Care Unavailable ENDY CRUZ Attending Unavailable NIKI PEARSON Primary Care Unavailable ENDY CRUZ Admitting Unavailable Niki Pearson MD Primary Care Provider [phone] Niki Pearson MD Primary Care Provider [phone] FLORIN BURGOS Attending Unavailable FLORIN BURGOS Attending [...] Attending Unavailable ROVICCKI, ROSALBA A. Attending Unavailable KELLYCKRoseline, ROSALBA A. Attending Unavailable ROVICCKRoseline, ROSALBA A. Attending Unavailable Allergies Allergy ClassificationReported Allergen(s)Allergy TypeDate of OnsetReaction(s) Facility (7 sources)Adhesive TapePropensity to adverse reactions to tdmq42-49-8033Chcub (See Comments)[employer] Phone: (7 sources)celecoxibDrug Fngalnz14-21-3465Wgwrp (See Comments)[employer] Phone: (20 sources)Codeine; Translations: [codeine]Drug Jkzrawi53-07-4602Mslrxq And Vomiting, Nausea and vomiting (disorder)[employer] Phone: (7 sources)egg white (chicken) allergenic extractDrug Axzinlk03-99-7131Akvwyfib [employer] Phone: (7 sources)GlutaralDrug Zfdqfrm00-17-2197Ktbgh (See Comments)[employer] Phone: (6 sources)NSAIDs; Translations: [NSAIDs]Propensity to adverse reactions to drug 71-72-4398Xqhfy (See Comments), Gastric ulcer (disorder)[employer] Phone: (20 sources)oxaprozinDrug Dhptoqf25-56-1117Wvxdu (See Comments), HivesMerLocated within [facility] Work Phone: (1 source)Adhesive bandageDrug allergyEruption of skin (disorder)[facility] [place] (20 sources)Sulfonamides (Antibiotic)Propensity to adverse reactions to drug 42-35-9939Egcqv (See Comments), Hives, [facility] (2 sources)Non-steroidal anti-inflammatory agentPropensity to adverse reactions to vcfi98-20-8035Ybjcb (See Comments)[facility] Work Phone: (1 source)Adhesive agentDrug allergy (disorder)56-29-8320Xzp [facility] Repository (1 source)celecoxibDrug Uevotgq19-27-4757Uxp [facility] (1 source)CodeineDrug Tcevyid76-06-2775Zfa [facility] Rep[facility] (1 source)egg extractDrug AllergyThe [facility] Repository (1 source)GlutaralDrug Vmjfgec06-18-9421PynOhio[facility] (1 source)NSAIDsDrug allergy (disorder)85-27-6300Kvj [facility] Rep[facility] (1 source)oxaprozinDrug Gzmvolh63-09-8729Tvh [facility] Rep[facility] (1 source)AcetaminophenDrug Ocqbmpu86-36-2596Aejok (See Comments)[facility] (20 sources)Diclofenac / miSOPROStolDrug Iixvzbc68-50-2500Sjkms (See Comments) [facility] (19 sources)AcetaminophenDrug Vadwwtl44-65-6583[facility] (19 sources)celecoxibDrug Apdlhzc17-65-8876NBWM [facility] (19 sources)GlutaralDrug Tersvwq97-90-4183QBWE [facility] (19 sources)Non-steroidal anti-inflammatory agentDrug Xppvevjctwt31-04-4670FCKW [facility] (3 sources)Eggs Or Egg-Derived ProductsDrug Noliarp05-47-9443QewfugpmINVD Healthcare (19 sources)OtherPropensity to adverse ueexredkp48-00-6676BLRP [facility] (19 sources)Wound Dressing AdhesiveDrug Srzgkxbrmag25-50-3843UISH [facility] (15 sources)Egg-Derived ProductsDrug Jagsqrr08-65-7240RkotuenuPNOY [facility] (1 source)Egg Protein-Containing Drug ProductsDrug Vexkimj16-26-5809QsjpdbhpMUZU [facility] (1 source)ALLERGIES NOT ON FILE; Translations: [ALLERGIES NOT ON FILE]Propensity to adverse reactions (disorder)[facility] Repository Medications Current Medications MedicationDrug Class(es)DatesSig (Normalized)Sig (Original)acetaminophen 325 mg / HYDROcodone bitartrate 5 mg oral tablet (6 sources)Opioid AgonistStart: 11-06-2023 End: 92-71-3575IOVVSbcjvmn-acetaminophen (NORCO) 5-325 MG per tablet Indications: Acute postoperative pain Take 1 tablet by mouth every 6 hours as needed for Pain for up to 3 days. Intended supply: 3 days. Take lowest dose possible to manage pain Max Daily Amount: 4 tablets 10 tablet 0 11/06/2023 11/09/2023 ActiveStart: 11-06-2023 End: 94-14-7920KFSHIabaned-acetaminophen (NORCO) 5-325 MG per tablet 1 tablet Start: 11-06-2023 End: 55-03-2745SCZODqihtkj-acetaminophen (NORCO) 5-325 MG per tabletStart: 06-17-2022 End: 54-58-4234uecr 1 tablet by mouth every six hours as needed for pain HYDROcodone-acetaminophen (NORCO) 5-325 MG per tablet Indications: Yeast infection involving the vagina and surrounding area Take 1 tablet by mouth every 6 hours as needed for Pain for up to 3 days. 10 tablet 0 06/17/2022 06/20/2022 ActiveStart: 02-12-2021 End: 72-20-3872wunj 1 tablet by mouth every four hours as needed for pain, then take 1 tablet by mouth as needed for painHYDROcodone-acetaminophen (NORCO) 5-325 MG per tablet Indications: Post-op pain Take 1 tablet by mouth every 4 hours as needed for Pain for up to 7 days. Intended supply: 7 days. Take lowest dose poss ible to manage pain 42 tablet 0 02/12/2021 02/19/2021 ActiveStart: 02-12-2021 End: 71-98-5191VLBRBzslpgv-acetaminophen (NORCO) 5-325 MG per tablet 1 tablet acetaminophen 325 mg / oxyCODONE hydrochloride 5 mg oral tablet (5 sources)Opioid AgonistStart: 10-28-2022 End: 45-55-8284fdlb 1 tablet by mouth every four hours as needed for pain oxyCODONE-acetaminophen (PERCOCET) 5-325 MG per tablet Indications: Cervical stenosis of spinal canal , S/P cervical spinal fusion Take 1 tablet by mouth every 4 hours as needed for Pain for up to 7 days. 30 tablet 0 10/28/2022 11/04/2022 ActiveStart: 40-56-3639jqwYQDDTK-acetaminophen (PERCOCET) 5-325 MG per tablet 1 tabletStart: 09-02-2022 End: 89-68-1429uuhFQDTCE-acetaminophen (PERCOCET) 5-325 MG per tablet Indications: Post-op pain Take 1 tablet by mouth every 6 hours as needed for Pain for up to 7 days. Intended supply: 7 days. Take lowest dose possible to manage pain 28 tablet 0 09/02/2022 09/09/2022 ActiveStart: 96-87-1600rhuz 1 tablet by mouth every four hours as neededMg/kg dosing is based on the oxycodone component. 1 tablet, Oral, EVERY 4 HOURS PRN, Starting on 09/02/22 at 1306, Until Discontinued, Pain Moderate (4-6), Pain Severe (7-10) Maximum dose of acetaminophen is 4000 mg from all sources in 24 hours.albuterol 0.833 mg/ml / ipratropium bromide 0.167 mg/ml inhalation solution (1 source)Anticholinergic, beta2-Adrenergic AgonistStart: 98-64-7814csgtiehixrn- albuterol (DUONEB) nebulizer solution 1 ampuleALFALFA PO (19 sources)ALFALFA PO Take by mouth ActiveALFALFA PO Take by mouth 0 Active aspirin 81 mg delayed release oral tablet (20 sources)Platelet Aggregation Inhibitor, Nonsteroidal Anti-inflammatory Drug aspirin 81 MG EC tablet 1 (one) time each day at the same time. Activeb complex vitamins capsule (19 sources)take 1 capsule by mouth in the morningb complex vitamins capsule Take 1 capsule by mouth in the morning. Activetake 1 capsule by mouth in the morningb complex vitamins capsule Take 1 capsule by mouth in the morning. 0 Activebeta carotene 36082 unt oral capsule (20 sources)beta carotene (Vitamin A) 45708 units capsule Take 25,000 Units by mouth. Activetake 1 capsule by mouth once dailybeta carotene 92143 units capsule Take 25,000 Units by mouth daily 0 Suspendedbiotin 1 mg chewable tablet (20 sources)Biotin 1000 MCG chewable tablet every 12 (twelve) hours. Activetake 2 tablets by mouth once dailyBiotin 44396 MCG TABS Take 20,000 mcg by mouth daily 0 Suspended End: 89-65-4849bjym 2 tablets by mouth once dailyBiotin 1000 MCG CHEW biotin 1,000 mcg chewable tablet Take 2 tablets every day by oral route. 0 08/28/2022 Discontinued (Therapy completed)busPIRone hydrochloride 10 mg oral tablet (20 sources)Start: 04-05-2025 End: 20-34-7070nufr 1 tablet by mouth once dailybusPIRone (Buspar) 10 MG tablet Indications: Anxiety Take 1 tablet (10 mg) by mouth Daily 90 tablet3 04/05/2025 03/31/2026 ActiveStart: 03-25-2024 End: 89-24-9039lwxg 1 tablet by mouth once dailybusPIRone (Buspar) 10 MG tablet Indications: Anxiety Take 1 tablet (10 mg) by mouth Daily 90 tablet3 03/25/2024 03/20/2025 ActiveStart: 10-28-2022 End: 28-53-4972pxbf 1 tablet by mouth in the morningbusPIRone (Buspar) 10 MG tablet Indications: Anxiety Take 1 tablet (10 mg) by mouth in the morning and 1 tablet (10 mg) before bedtime. 180 tablet 3 10/27/2023 01/25/2024 Activecalcium chloride 0.0014 meq/ml / potassium chloride 0.004 meq/ml / sodium chloride 0.103 meq/ml / sodium lactate 0.028 meq/ml injectable solution (4 sources)Start: 26-73-7181bknlxdyy ringers IV soln infusionStart: 10-28-2022 lactated ringers infusionStart: 09-02-2022 End: 48-03-8443efmhqihz ringers infusion 1,000 mLStart: 38-98-1972eytkevli ringers infusion 1,000 mLcalcium-vitamin D-vitamin K (Calcium + D + K) 750-500-40 MG-UNT-MCG tablet (19 sources)calcium-vitamin D-vitamin K (Calcium + D + K) 750-500-40 MG-UNT-MCG tablet every 12 (twelve) hours.Activecalcium-vitamin D-vitamin K (Calcium + D + K) 750-500-40 MG-UNT-MCG tablet every 12 (twelve) hours.0 Activecephalexin 500 mg oral capsule (1 source)Cephalosporin AntibacterialStart: 10-29-2022 End: 91-22-2401ttxk 1 capsule by mouth three times dailycephALEXin (KEFLEX) 500 MG capsule Take 1 capsule by mouth 3 times daily for 7 days 21 capsule 0 11/05/2022 Activecetirizine hydrochloride 10 mg oral tablet (7 sources)Histamine-1 Receptor AntagonistStart: 10-28-2022 End: 97-35-829884 mg, Oral, DAILY, 3 doses, First dose on Fri10/28/22 at 1200, Last dose on Fri10/30/22 at 0900take 2 tablets by mouth once daily as needed cetirizine (ZYRTEC) 5 MG tablet Take 10 mg by mouth daily as needed 0 Suspended cetirizine (ZYRTEC) 5 MG tablet Take 5 mg by mouth 0 ActiveclonazePAM 0.5 mg oral tablet (20 sources)BenzodiazepineStart: 06-22-2024 End: 58-62-7261tjat 1 tablet by mouth in the morning, then take 1 tablet by mouth in the evening, then take 1 tablet by mouth at bedtimeclonazePAM (KlonoPIN) 0.5 MG tablet Indications: Seizure (HCC) Take 1 tablet (0.5 mg) by mouth in the morning and 1 tablet (0.5 mg) in the evening and 1 tablet (0.5 mg) before bedtime. 270 tablet 06/01/2025 ActiveStart: 09-25-2023 End: 10-50-8685syic 1 tablet by mouth in the morning, then take 1 tablet by mouth in the evening, then take 1 tablet by mouth at bedtimeclonazePAM (KlonoPIN) 0.5 MG tablet Indications: Seizure (CMS/HCC) Take 1 tablet (0.5 mg) by mouth in the morning and 1 tablet (0.5 mg) in the evening and 1 tablet (0.5 mg) before bedtime. 90 tablet 2 12/25/2023 03/24/2024 ActiveStart: 10-28-2022 take 1.5 mg by mouth once daily1.5 mg, Oral, NIGHTLY, First dose on Fri10/28/22 at 2100, Until DiscontinuedStart: 50-14-7643iezw 1.5 mg by mouth once daily1.5 mg, Oral, NIGHTLY, First dose on Fri09/03/22 at 0030, Until DiscontinuedStart: 07-76-3195iuzk 0.25 mg by mouth once daily at bedtimeClonazePAM 0.5 mg Tab 0.25 mg = 0.5 tab(s), Oral, Once a day (at bedtime), Refills(s) 0 Start Date:03/25/22 Status: OrderedclonazePAM (KLONOPIN) 0.5 MG tablet 3 tablets nightly. 0 SuspendedclonazePAM (KLONOPIN) 0.5 MG tablet clonazepam 0.5 mg tablet 0 Suspended1 ml denosumab 60 mg/ml prefilled syringe (16 sources)RANK Ligand Inhibitorinject 60 mg by subcutaneous injection once denosumab (Prolia) 60 MG/ML solution prefilled syringe Inject 60 mg under the skin 1 (one) time Active1 ml diphenhydrAMINE hydrochloride 50 mg/ml cartridge (1 source)Histamine-1 Receptor AntagonistStart: 02-12-2021 End: 91-17-4294fxqanxihzbUTFTG (BENADRYL) injection 12.5 mgdocosahexaenoic acid 120 mg / eicosapentaenoic acid 180 mg oral capsule (20 sources)omega-3 (Fish Oil) 1000 MG capsule 1 capsule 1 (one) time each day at the same time. Activetake 1 capsule by mouth twice dailyOmega-3 Fatty Acids (FISH OIL) 1000 MG CAPS Take 3,000 mg by mouth 2 times daily 0 Activedocusate sodium 100 mg oral capsule (2 sources)Start: 09-03-2022 End: 51-72-2187hbxr 1 capsule by mouth twice dailydocusate sodium (COLACE) 100 MG capsule Take 1 capsule by mouth 2 times daily 60 capsule 0 09/03/2022 10/03/2022 Activedoxycycline hyclate 100 mg oral tablet (1 source)Tetracycline-class DrugStart: 06-17-2022 End: 85-57-1538xisr 1 tablet by mouth in the morningdoxycycline hyclate (VIBRA- TABS) 100 MG tablet Take 1 tablet by mouth in the morning and 1 tablet before bedtime. Do all this for 7 days. 14 tablet 0 06/17/2022 06/24/2022 Active escitalopram 10 mg oral tablet (20 sources)Serotonin Reuptake InhibitorStart: 15-71-4683hgpl 1 tablet by mouth once daily in the morningescitalopram (Lexapro) 10 MG tablet Indications: Depression, unspecified depression type TAKE 1 TABLET BY MOUTH EVERY DAY IN THE MORNING 90 tablet 3 05/29/2024 ActiveStart: 95-78-1567htyf 1 tablet by mouth in the morningescitalopram (Lexapro) 10 MG tablet Indications: Depression, unspecified depression type (CMS/HCC) Take 1 tablet (10 mg) by mouth in the morning. 90 tablet 3 04/10/2023 Activetake 10 mg by mouth once dailyescitalopram (LEXAPRO) 20 MG tablet Take 10 mg by mouth daily 0 Activeescitalopram (LEXAPRO) 20 MG tablet escitalopram 20 mg tablet 0 Suspendedfluconazole 150 mg oral tablet (1 source)Azole AntifungalStart: 06-17-2022 End: 88-36-3996ukmr 1 tablet by mouth oncefluconazole (DIFLUCAN) 150 MG tablet Take 1 tablet by mouth once for 1 dose Take after completion of doxycycline and macrobid 1 tablet 1 06/17/2022 06/17/2022 Activegabapentin 800 mg oral tablet (20 sources)Anti-epileptic AgentStart: 03-25-2024 End: 71-23-0771ankpcjmoao (Neurontin) 800 MG tablet Indications: Focal epilepsy (HCC) Take 1 tablet (800 mg) by mouth in the morning and 1 tablet (800 mg) at noon and 1 tablet (800 mg) in the evening and 1 tablet (800 mg) before bedtime. 360 tablet 06/01/2025 ActiveStart: 10-21-2023 End: 34-83-7042paau 1 tablet by mouth in the morning, then take 1 tablet by mouth in the evening, then take 1 tablet by mouth at bedtimegabapentin (Neurontin) 800 MG tablet Indications: Focal epilepsy (CMS/HCC) Take 1 tablet (800 mg) by mouth in the morning and 1 tablet (800 mg) in the evening and 1 tablet (800 mg) before bedtime. 270 tablet 1 10/21/2023 01/19/2024 ActiveStart: 10-29-2022 End: 34-50-6642dlum 2 tablets by mouth at bedtimegabapentin (NEURONTIN) 800 MG tablet Take 2 tablets by mouth at bedtime for 7 doses. 90 tablet 3 10/29/2022 10/29/2022 Discontinued (Stop Taking at Discharge)Start: 10-29-2022 End: 16-64-0949zoxz 1 tablet by mouth twice dailygabapentin (NEURONTIN) 800 MG tablet Take 1 tablet by mouth 2 times daily for 10 days. 90 tablet 3 10/29/2022 11/08/2022 ActiveStart: 10-28-2022 End: 38-46-5715kakasjrwzv (NEURONTIN) tablet 1,600 mgStart: 10-28-2022 End: 70-58-7428ypgf 800 mg by mouth four times kmpyn506 mg, Oral, 4 TIMES DAILY, First dose on Fri10/28/22 at 1345, Until DiscontinuedStart: 09-04-2022 gabapentin (NEURONTIN) capsule 1,600 mgStart: 03-29-2022 End: 02-43-3553ssxd 800 mg by mouth four times mg, Oral, 4 TIMES DAILY, First dose on Fri09/02/22 at 2100, Until Discontinued End: 31-27-6835llvq 4 capsules by mouth once dailygabapentin (NEURONTIN) 400 MG capsule Take 1,600 mg by mouth nightly. 0 10/29/2022 Discontinued (Stop Taking at Discharge)garlic preparation 2 mg oral capsule (20 sources)Non-Standardized Food Allergenic ExtractGarlic 2 MG capsule Take by mouth ActiveGarlic 100 MG TABS Take by mouth daily 0 SuspendedGarlic 100 MG TABS Take by mouth daily 0 ActiveGarlic 100 MG TABS Take by mouth 0 ActiveGarlic 100 MG TABS Take by mouth 0 Suspendedglucagon (rdna) 1 mg injection (3 sources)Antihypoglycemic AgentStart: 53-86-8089vyuorkba (rDNA) injection 1 mg Start: 23-40-3291rrdsyr 1 mg by subcutaneous injection every hour as needed1 mg, SubCUTAneous, PRN, Starting on Fri09/02/22 at 2010, Until Discontinued, Low blood sugar, Blood glucose LESS THAN 70 mg/dL and patient NOT ALERT or NPO and does not have IV access. After administration, attempt intravenous access and start dextrose 10% at 100 mL/hr. Repeat blood glucose in 15minutes x 2 and notify provider.Start: 72-16-0426vhbblkfx (rDNA) injection 1 ve0084 ml glucose 100 mg/ml injection (9 sources)Start: 54-77-1689nwqbscex 10 % infusionStart: 44-61-6648xgkekrmk bolus 10% 125 mLStart: 85-83-5732kjtmupz chewable tablet 16 gStart: 09-02-2022 dextrose bolus 10% 125 mLStart: 86-86-143906 g (4 tablet), Oral, PRN, Starting on [...] glucose remains LESS THAN 70 mg/dL, notify provider.Start: 83-97-4694lngt 1 mL intravenously every hourIntraVENous, at 100 mL/hr, CONTINUOUS PRN, if blood [...] mg/dL after 60 minutes, discontinue dextrose 10% infusion.Start: 63-55-9383pvpxssmr bolus 10% 125 mLStart: 72-37-5043qabjkti chewable tablet 16 g1 ml hydrALAZINE hydrochloride 20 mg/ml injection (2 sources)Arteriolar VasodilatorStart: 44-05-2495yorpYMJSHTI (APRESOLINE) injection 10 mgStart: 97-51-3382xyemURPMDQZ (APRESOLINE) injection 5 mg1 ml HYDROmorphone hydrochloride 1 mg/ml cartridge (10 sources)Opioid AgonistStart: 91-41-6050LSFTTxcszsnnx (DILAUDID) injection 0.5 mgStart: 96-25-4751BGUARhlarbzox (DILAUDID) injection 0.3 mgStart: 10-28-2022 End: 29-52-8998CALTWpdvzfdmh (DILAUDID) 1 MG/ML injectionStart: 10-28-2022 End: 70-51-3181JNBTIikkbdrfg (DILAUDID) injection 0.5 mgStart: 10-28-2022 End: 31-94-2073QFUSQhyffdcsw (DILAUDID) injection 0.25 mgStart: 02-12-2021 End: 85-29-9816SXHYTuzjpmolp (DILAUDID) 1 MG/ML injectionStart: 02-12-2021 HYDROmorphone (DILAUDID) injection 0.5 mgStart: 02-12-2021 End: 75-70-7992HPWYJmvsoqdrk (DILAUDID) injection 0.25 mginsulin lispro 100 unt/ml injectable solution (4 sources)Insulin AnalogStart: 64-40-0026igcrbqt lispro (HUMALOG) injection vial 0-4 UnitsStart: 62-63-6341oucvbgx lispro (HUMALOG) injection vial 0-8 Units labetalol (NORMODYNE;TRANDATE) injection 10 mg (1 source)Start: 63-32-2379qminhdgkx (NORMODYNE;TRANDATE) injection 10 mg Lecithin (16 sources)LECITHIN PO Take by mouth Active1 ml meperidine hydrochloride 50 mg/ml injection (1 source)Opioid AgonistStart: 44-37-4447zhydzcrcxv (DEMEROL) injection 12.5 mg2 ml metoclopramide 5 mg/ml prefilled syringe (1 source)Dopamine-2 Receptor AntagonistStart: 02-12-2021 End: 75-49-1605xbbyfiglarowgs (REGLAN) injection 10 mgmilk thistle extract 150 mg oral capsule (20 sources)Milk Thistle 150 MG capsule as directed Orally ActiveMilk Thistle 150 MG capsule as directed Orally 0 ActiveMilk Thistle 500 MG CAPS Take by mouth daily 0 SuspendedMilk Thistle 500 MG CAPS Take by mouth daily 0 ActiveMilk Thistle 500 MG CAPS Take by mouth 0 ActiveMilk Thistle 500 MG CAPS Take by mouth 0 Suspendedmometasone furoate 0.05 mg/actuat metered dose nasal spray (20 sources)CorticosteroidStart: 09-23-2024 End: 59-60-0136ceut 2 spray(s) nasal route once dailymometasone (Nasonex) 50 MCG/ACT nasal spray Indications: 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 Administer 2 sprays into each nostril Daily 18 g 11 09/23/2024 ActiveStart: 09-08-2023 End: 57-72-3039zdsz 2 spray(s) nasal route once daily in the morningmometasone (Nasonex) 50 MCG/ACT nasal spray Indications: 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 INSTILL 2 SPRAYS INTO EACH NOSTRIL EVERY MORNING 18 g 11 09/08/2023 09/23/2024 Discontinued (Reorder)Mometasone Furoate (NASONEX NA) by Nasal route daily 0 Suspendedtake 2 spray(s) nasal route once dailymometasone (NASONEX) 50 MCG/ACT nasal spray mometasone 50 mcg/actuation nasal spray 2 sprays each nostril daily 0 Suspendedmorphine (PF) injection 2 mg (1 source)Start: 47-08-2995jyupecrr (PF) injection 2 mgMultiple Vitamin (Multi Vitamin) tablet (19 sources)Multiple Vitamin (Multi Vitamin) tablet every 12 (twelve) hours. ActiveMultiple Vitamin (Multi Vitamin) tablet every 12 (twelve) hours. 0 Active Nasonex 50 mcg/inh [place] (1 source)Start: 04-90-5678czht 1 spray(s) nasal route twice daily as needed Nasonex 50 mcg/inh [place] = 1 spray(s), Nasal, BID, PRN for allergy symptoms, in each nostril, # 17 gram, Refills(s) 0 Start Date: 03/25/22 Status: Ordered nitrofurantoin, macrocrystals 25 mg / nitrofurantoin, monohydrate 75 mg oral capsule (1 source)Nitrofuran AntibacterialStart: 06-17-2022 End: 81-21-5019zihl 1 capsule by mouth in the morningnitrofurantoin, macrocrystal-monohydrate, (MACROBID) 100 MG capsule Take 1 capsule by mouth in the morning and 1 capsule before bedtime. Do all this for 5 days. 10 capsule 0 06/17/2022 06/22/2022 Activeondansetron (ZOFRAN-ODT) disintegrating tablet 4 mg (1 source)Start: 24-71-2408obvyqodfokx (ZOFRAN-ODT) disintegrating tablet 4 mg phenazopyridine hydrochloride 100 mg oral tablet (1 source)Start: 06-17-2022 End: 30-28-2663etfj 1 tablet by mouth three times daily as needed for pain phenazopyridine (PYRIDIUM) 100 MG tablet Take 1 tablet by mouth 3 times daily as needed for Pain 10tablet 0 06/17/2022 06/20/2022 Activephenytoin sodium 30 mg extended release oral capsule (20 sources)Anti-epileptic AgentStart: 12-22-2023 End: 28-12-1788xdnc 3 capsules by mouth at bedtimeDilantin 100 MG capsule Indications: Focal epilepsy (HCC) TAKE 3 CAPSULES BY MOUTH AT BEDTIME 270 ca psule 3 06/01/2025 ActiveStart: 12-22-2023 End: 42-35-9006Yrebzfql 30 MG capsule Indications: Generalized seizure disorder (HCC) Take 1 capsule (30 mg) by mouth Daily Total of 10 capsules per week. 90 capsule 3 06/01/2025 ActiveStart: 06-94-7761pcne 60 mg by mouth once daily60 mg, Oral, USER SPECIFIED (Once per day on Fri), First dose on Fri10/29/22 at 2100, Until Discontinued Tube feeding interaction, obtain physician order to manage. Recommend holding TF for 1 hour before and 1 hour after dose. Start: 21-39-6620opvr 30 mg by mouth once daily30 mg, Oral, USER SPECIFIED (Once per day on Sun Fri), First dose on Fri10/28/22 at 2100, Until Discontinued Tube feeding interaction, obtain physician order to manage. Recommend holding TF for 1 hour before and 1 hour after dose. Start: 93-86-1672qwym 300 mg by mouth once mg, Oral, NIGHTLY, First dose on Fri10/28/22 at 2100, Until Discontinued Tube feeding interaction, obtain physician order to manage. Recommend holding TF for 1 hour before and 1 hour after dose. Start: 71-99-8030sxminadip (DILANTIN) ER capsule 30 mgStart: 16-87-7818mtnf 60 mg by mouth once daily60 mg, Oral, USER SPECIFIED (Once per day on Fri), First dose on Fri09/03/22 at 2100, Until Discontinued Tube feeding interaction, obtain physician order to manage. Recommend holding TF for 1 hour before and 1 hour after dose. Start: 03-06-9652thoz 300 mg by mouth once mkeng122 mg, Oral, NIGHTLY, First dose on Fri09/02/22 at 2100, Until Discontinued Tube feeding interaction, obtain physician order to manage. Recommend holding TF for 1 hour before and 1 hour after dose. Start: 01-11-6084idsu 3 capsules by mouth once daily at bedtimeDilantin 100 mg Cap-ER 300 mg = 3 cap(s), Oral, Once a day (at bedtime), Refills(s) 0 Start Date: 03/25/22 Status: OrderedStart: 94-38-9819Gwtgaoxp 30 mg oral capsule, extended release as directed, Refills(s) 0 Start Date: 03/25/22 Status:Orderedphenytoin (DILANTIN) 100 MG ER capsule 3 capsules nightly 0 Suspendedphenytoin (DILANTIN) 30 MG ER capsule 2 capsules three times a week , , FRI AT NIGHT 0 Suspendedtake 1 capsule by mouth four times weeklyphenytoin (DILANTIN) 30 MG ER capsule Take 30 mg by mouth four times a week SUN, MON, FRI, FRI AT NIGHT 0 Suspendedphenytoin (DILANTIN) 100 MG ER capsule Dilantin Extended 100 mg capsule 0 Suspendedpolyethylene glycol 3350 91646 mg powder for oral solution (1 source)Osmotic LaxativeStart: 31-91-9009jpuifjkywvbs glycol (GLYCOLAX) packet 17 gprochlorperazine 5 mg/ml injectable solution (1 source)PhenothiazineStart: 11-06-2023 End: 38-17-3850ypyckzllefndruvz (COMPAZINE) injection 5 mg1 ml promethazine hydrochloride 25 mg/ml injection (1 source)PhenothiazineStart: 02-12-2021 End: 22-46-3893veblakghvvre (PHENERGAN) injection 6.25 mgRed Yeast Rice Extract (RED YEAST RICE PO) (16 sources)Red Yeast Rice Extract (RED YEAST RICE PO) Take by mouth Active Respiratory Therapy Supplies (CareTouch CPAP & BIPAP Hose) [facility] [place] (19 sources)Start: 17-00-0392Ccuippwzylb Therapy Supplies (CareTouch CPAP & BIPAP Hose) [facility] [place] Indications: Obstructive sleep apnea syndrome BIPAP mask, heating tubing and supplies for 1 year. 1 each 05/27/2023 ActiveStart: 34-55-8151Myugqybpayz Therapy Supplies (CareTouch CPAP & BIPAP Hose) [facility] [place] Indications: Obstructive sleep apnea syndrome BIPAP mask, heating tubing and supplies for 1 year. 1 each 0 05/27/2023 Ntjqwn64 hr scopolamine 0.0139 mg/hr transdermal system (3 sources)AnticholinergicStart: 16-85-1125ikpdlgeiezj (TRANSDERM-SCOP) transdermal patch 1 patchStart: 02-18-4561jnijkrxpzhd (TRANSDERM-SCOP) transdermal patch 1 patchStart: 12-99-0048niuokiaismu (TRANSDERM-SCOP) transdermal patch 1 patch5 ml sodium chloride 9 mg/ml injection (13 sources)Start: 06-64-7814eyqmyi chloride flush 0.9 % injection 5-40 mLStart: .9 % sodium chloride infusionStart: 15-91-1623enfciy chloride flush 0.9 % injection 5-40 mLStart: .9 % sodium chloride infusionStart: 09-34-1577rttmjd chloride flush 0.9 % injection 10 mLStart: 47-47-5995cpvm 1 dose intravenously twice daily5-40 mL, IntraVENous, EVERY 12 HOURS SCHEDULED (2 times per day), First dose on Fri09/02/22 at 2100, Until Discontinued For Line Patency: Peripheral IV = 5 mL; Midline or Central Line = 10 mL/lumen.& amp;nbsp; If following IV push medication, administer flush [...] = 10 mL Midline or Central Line =20 mL/lumenStart: 09-02-2022 End: 17-84-7775nolt 1 mL by mouth every hourIntraVENous, at 100 mL/hr, CONTINUOUS, Starting on Fri09/02/22 at 1330 May decrease/DC as patient t olerates PO intake and voids well (> or = 0.5 cc/kg/h).Start: 09-02-2022 IntraVENous, at 5-250 mL/hr, PRN, if patient [...] mL/hr or less into rate field of order.Start: 31-75-7486xocr 5-40 mL intravenously once as needed5-40 mL, IntraVENous, PRN, Starting on Fri09/02/22 at 1306, Until Discontinued, Line Care, After every IV line use For Line Patency: Peripheral IV = 5 mL; Midline or Central Line = 10 mL/lumen.&n bsp; If following IV push medication, administer flush [...] mL Midline or Central Line = 20 mL/lumentiZANidine 2 mg oral tablet (20 sources)Central alpha-2 Adrenergic AgonistStart: 31-07-2610elwq 1 tablet by mouth every eight hours as neededtiZANidine (Zanaflex) 2 MG tablet Take 2 mg by mouth every 8 (eight) hours if needed 06/17/2024 ActiveStart: 10-29-2022 tiZANidine (ZANAFLEX) tablet 4 mgStart: 09-02-2022 End: 12-69-9584vybj 1 tablet by mouth every six hours as needed for pain tiZANidine (ZANAFLEX) 2 MG tablet Take 1 tablet by mouth every 6 hours as needed (for pain) 28 tablet 0 09/02/2022 09/16/2022 ActiveStart: 31-18-5596ymop 4 mg by mouth every six hours as needed4 mg, Oral, EVERY 6 HOURS PRN, Starting on 09/02/22 at 1306, Until Discontinued, Muscle spasmsStart: 96-66-7033qhni 1 tablet by mouth once dailytiZANidine (Zanaflex) 4 MG tablet Take 4 mg by mouth 1 (one) time each day. 08/30/2022 Activetake 1 tablet by mouth every eight hours as neededtiZANidine (ZANAFLEX) 4 MG tablet Take 1 tablet by mouth every 8 hours as needed 0 Suspended End: 63-89-5366veti 1 tablet by mouth in the morningtiZANidine (ZANAFLEX) 4 MG tablet Take 4 mg by mouth in the morning and 4 mg before bedtime. 0 08/28/2022 Discontinued (Therapy completed)traZODone hydrochloride 100 mg oral tablet (20 sources)Serotonin Reuptake InhibitorStart: 03-02-2025 End: 03-64-0063hrre 3 tablets by mouth at bedtimetraZODone (Desyrel) 100 MG tablet Indications: Chronic insomnia Take 3 tablets (300 mg) by mouth atbedtime 90 tablet 11 03/02/2025 ActiveStart: 09-23-2024 End: 95-79-4817fgmr 2 tablets by mouth at bedtimetraZODone (Desyrel) 100 MG tablet Indications: Chronic insomnia Take 2 tablets (200 mg) by mouth atbedtime 60 tablet 11 09/23/2024 03/02/2025 Discontinued (Reorder)Start: 09-23-2024 End: 35-17-6658gjym 1 tablet by mouth at bedtime, then take 3 tablets by mouth at bedtimetraZODone (Desyrel) 100 MG tablet Indications: Chronic insomnia Take 1 tablet (100 mg) by mouth at bedtime Take 3 Tablets (150mg( by mouth at bedtime 30 tablet 11 09/23/2024 09/23/2024 DiscontinuedStart: 03-25-2024 End: 08-55-4172mraz 3 tablets by mouth at bedtimetraZODone (Desyrel) 50 MG tablet Indications: Chronic insomnia Take 3 Tablets (150mg( by mouth at bedtime 270 tablet 3 03/25/2024 09/23/2024 Discontinued (Reorder)Start: 82-89-8404lplb 3 tablets by mouth at bedtimetraZODone (Desyrel) 50 MG tablet Indications: Chronic insomnia Take 3 tablets (150 mg) by mouth at bedtime. Take 3 Tablets (150mg( by mouth at bedtime 90 tablet 11 07/31/2023 ActiveStart: 32-91-6859lwrh 100 mg by mouth once zmloo115 mg, Oral, NIGHTLY, First dose on Fri10/28/22 at 2100, Until DiscontinuedStart: 62-91-9475defk 1 tablet by mouth once daily at bedtime traZODONE 50 mg Tab 50 mg = 1 tab(s), Oral, Once a day (at bedtime), Refills(s) 0 Start Date: 03/25/22 Status: OrderedTrelegy Ellipta 100 mcg-62.5 mcg-25 mcg inhalation powder (1 source)Start: 35-86-8394dktb 1 puff(s) by inhalation once dailyTrelegy Ellipta 100 mcg-62.5 mcg-25 mcg inhalation powder = 1 puff(s), Inhalation, Daily, Refills(s) 0 Start Date: 03/26/22 Status: OrderedTurmeric extract (20 sources)Turmeric (CURCUMIN 95 PO) Take by mouth Active End: 04-61-7166mgta 1 capsule by mouth once dailyturmeric 500 MG CAPS Take by mouth daily 0 10/25/2022 Discontinued (Therapy completed)take 1 capsule by mouth once dailyturmeric 500 MG CAPS Take by mouth daily 0 Activeturmeric 500 MG CAPS Take by mouth 0 ActiveTurmeric (CURCUMIN 95) 500 MG CAPS Take by mouth 0 SuspendedTurmeric (CURCUMIN 95) 500 MG CAPS Take by mouth 0 Activeubidecarenone 100 mg / vitamin e 5 unt oral capsule (19 sources)coenzyme Q-10 100 MG capsule 1 capsule 1 (one) time each day at the same time Activevitamin e 450 mg oral capsule (20 sources)alpha tocopherol (Vitamin E) 1000 units capsule 1 (one) time each day at the same time. Active End: 56-27-3460Orenzfn E 100 UNIT/GM CREA vitamin E take 1 tablet per day 0 08/28/2022 Discontinued (Therapy completed)zinc gluconate 50 mg oral tablet (19 sources)zinc gluconate 50 MG tablet 1 (one) time each day at the same time. Active Completed/Discontinued Medications MedicationDrug Class(es)DatesSig (Normalized)Sig (Original)acetaminophen 325 mg oral tablet (1 source)Start: 49-54-9706oaok 650 mg by mouth every six hours, then take 4000 mg by mouth every twenty-four mg, Oral, EVERY 6 HOURS, First dose on Fri09/02/22 at 1330, Until Discontinued Maximum dose ofacetaminophen is 4000 mg from all sources in 24 hours.Mineral 500 MG TABS (7 sources)take 1 tablet by mouth once dailyAlfalfa 500 MG TABS Take by mouth daily 0 Suspendedtake 1 tablet by mouth once dailyAlfalfa 500 MG TABS Take by mouth daily 0 ActiveAlfalfa 500 MG TABS Take by mouth 0 SuspendedAlfalfa 500 MG TABS Take by mouth 0 Activeascorbic acid 500 mg chewable tablet (20 sources)Vitamin CStart: 19-14-0151pqms 1000 mg by mouth once daily1,000 mg, Oral, DAILY, First dose on Fri09/02/22 at 2030, Until Discontinuedtake 1 tablet by mouth in the morningascorbic acid (Vitamin C) 1000 MG tablet Take 1,000 mg by mouth in the morning. ActiveAscorbic Acid (Vitamin C) 500 MG capsule every 12 (twelve) hours. 0 ActiveB Complex Vitamins (VITAMIN B COMPLEX 100 IJ) (10 sources)B Complex Vitamins (VITAMIN B COMPLEX 100 IJ) Take by mouth daily 0 SuspendedB Complex Vitamins (VITAMIN B COMPLEX 100 IJ) Take by mouth daily 0 Active End: 08-28-2022 Complex Vitamins (VITAMIN B COMPLEX 100 IJ) vitamin B complex 0 08/28/2022 Discontinued (DUPLICATE)B Complex Vitamins (VITAMIN B COMPLEX 100 IJ) vitamin B complex 0 SuspendedB Complex Vitamins (VITAMIN B COMPLEX 100 IJ) Take by mouth 0 SuspendedB Complex Vitamins (VITAMIN B COMPLEX 100 IJ) vitamin B complex 0 ActiveB Complex Vitamins (VITAMIN B COMPLEX 100 IJ) Take by mouth 0 Activebupivacaine hydrochloride 5 mg/ml injectable solution (4 sources)Amide Local AnestheticStart: 09-23-2024 End: 72-87-6784vfdpzxzrnqa (Marcaine) 0.5 % injection 5 mgStart: 09-23-2024 End: 28-62-5069nbvdemctjzz (Marcaine) 0.5 % injection 5 mgStart: 09-23-2024 End: mg (1 mL), Injection, Once, On Sonia 09/23/24 at 1645, For 1 dose Start: 09-23-2024 End: mg (1 mL), Injection, Once, On Sonia 09/23/24 at 1645, For 1 dose calcium carbonate 1500 mg oral tablet (20 sources)Start: 87-54-4991pjpe 600 mg by mouth twice daily at xukppgbi943 mg, Oral, 2 TIMES DAILY WITH MEALS, First dose on Fri10/28/22 at 1200, Until Discontinuedcalcium carbonate (Os-Asa) 1250 (500 Ca) MG tablet every 12 (twelve) hours. Activecarvedilol 6.25 mg oral tablet (20 sources)alpha-Adrenergic Elmo, beta-Adrenergic BlockerStart: 09-03-2022 take 6.25 mg by mouth twice daily at mealtime6.25 mg, Oral, 2 TIMES DAILY WITH MEALS, First dose on Fri10/28/22 at 1700, Until Discontinued Administer with food to minimize the risk of orthostatic hypotensionceFAZolin (ANCEF) 2000 mg in sterile water 20 mL IV syringe (2 sources)Start: 10-28-2022 End: 24-12-2287shXKSypdw (ANCEF) 2000 mg in sterile water 20 mL IV syringeStart: 09-02-2022 End: ,000 mg, IntraVENous, EVERY 8 HOURS, 2 doses, First dose on Fri09/02/22 at 1700, Last dose on Fri09/03/22 at 0100 Antimicrobial Indications: Surgical Prophylaxis Administer over 5 mins. Post-opcholecalciferol 0.025 mg oral tablet (20 sources)Vitamin DStart: 26-27-8359umgb 6000 [IU] by mouth once dailyLabeling may look different. 25 tbm=2933 Units. Please double check dosages. 6,000 Units, Oral, DAILY, First dose on Fri10/29/22 at 0900, Until Discontinued cholecalciferol (Vitamin D-3) 125 MCG (5000 UT) tablet Take 6,000 Units by mouth Activetake 1 tablet by mouth once dailyCholecalciferol (VITAMIN D3) 125 MCG (5000 UT) TABS Take 6,000 Units by mouth daily 0 Suspended End: 04-67-5829qjxb 3 capsules by mouth once dailyvitamin D 25 MCG (1000 UT) CAPS Vitamin D3 25 mcg (1,000 unit) capsule Take 3 capsules every day byoral route. 0 08/28/2022 Discontinued (Therapy completed)clobetasol propionate 0.0005 mg/mg topical ointment (4 sources)CorticosteroidStart: 06-17-2022 End: 27-39-1952abszesypsg (TEMOVATE) 0.05 % ointment Apply topically 2 times daily as needed (vulvar discomfort) Apply topically 2 times daily. 1 each 1 06/17/2022 10/25/2022 Discontinued (Therapy completed)ubidecarenone 100 mg oral capsule (6 sources)take 1 capsule by mouth once dailyCoenzyme Q10 (CO Q 10) 100 MG CAPS Take 1 capsule by mouth daily 0 SuspendedCoenzyme Q10 (CO Q 10) 100 MG CAPS Take by mouth 0 Activecyclobenzaprine hydrochloride 10 mg oral tablet (4 sources)Muscle RelaxantStart: 10-28-2022 End: 22-02-8649gzqn 5 mg by mouth once daily as needed for muscle spasms5 mg, Oral, NIGHTLY PRN, Starting on Fri10/28/22 at 2100, Until Fri10/29/22 at 0726, Muscle spasmsStart: 34-99-2754shqt 5 mg by mouth once daily as needed5 mg, Oral, NIGHTLY PRN, Starting on Fri09/03/22 at 2100, Until Discontinued, Muscle spasmstake 5 mg by mouth once daily as needed for muscle spasmscyclobenzaprine (FLEXERIL) 10 MG tablet Take 5 mg by mouth nightly as needed for Muscle spasms 0 Suspendeddexamethasone phosphate 4 mg/ml injectable solution (6 sources)CorticosteroidStart: 09-23-2024 End: 31-56-8863zufMNRPUointe sod phos (Decadron) injection 4 mgStart: 09-23-2024 End: 36-49-9905qzgIEIXVuyysh sod phos (Decadron) injection 4 mgStart: 09-23-2024 End: 44 mg (1 mL), Injection, Once, On Sonia 09/23/24 at 1645, For 1 dose Start: 09-23-2024 End: 44 mg (1 mL), Injection, Once, On Sonia 09/23/24 at 1645, For 1 dose Start: 10-28-2022 End: 10-09-4076mvelglihzagqr (DECADRON) injection 4 mgStart: 09-02-2022 End: mg, IntraVENous, EVERY 8 HOURS, First dose on Fri09/02/22 at 1700, For 3 dosesfluticasone propionate 0.05 mg/actuat metered dose nasal spray (1 source)CorticosteroidStart: 27-34-1803kzdi 1 spray(s) nasal route once daily1 spray, Each Nostril, DAILY, First dose on Fri10/28/22 at 1200, Until Discontinued Substituted for Mometasone (NASONEX).glipiZIDE 5 mg oral tablet (20 sources)SulfonylureaStart: 58-94-7665uxvz 5 mg by mouth once daily5 mg, Oral, DAILY, First dose on Fri10/28/22 at 1200, Until DiscontinuedStart: 09-02-2022 End: 45-51-8408okcq 5 mg by mouth once daily5 mg, Oral, DAILY, First dose on Fri09/02/22 at 2030, Until Discontinuediopamidol (ISOVUE-370) 76 % injection 75 mL (1 source)Start: 09-04-2022 End: 53-52-8135uffckrmsd (ISOVUE-370) 76 % injection 75 mLlidocaine 0.05 mg/mg topical ointment (4 sources)Antiarrhythmic, Amide Local AnestheticStart: 06-17-2022 End: 96-54-4007xnruurxkq (XYLOCAINE) 5 % ointment Apply topically 3 times daily as needed for Pain Apply topicallyas needed. 1 each 0 06/17/2022 10/25/2022 Discontinued (Therapy completed)melatonin 3 mg oral tablet (20 sources)Start: 75-28-6408axhj 9 mg by mouth once daily9 mg, Oral, NIGHTLY, First dose on Fri10/28/22 at 2100, Until DiscontinuedStart: 97-44-6370ryaw 9 mg by mouth once daily9 mg, Oral, NIGHTLY, First dose on Fri09/02/22 at 2100, Until Discontinuedtake 3 tablets by mouth at bedtimemelatonin 3 MG tablet 3 tas Orally at bedtime Activetake 9 mg by mouth once dailyMELATONIN PO Take 9 mg by mouth nightly 0 Suspended1 ml morphine sulfate 2 mg/ml cartridge (1 source)Opioid AgonistStart: 09-02-2022 End: 50-97-7541zofpnsco (PF) injection 2 mgMultiple Vitamin (MULTIVITAMIN ADULT PO) (6 sources)Multiple Vitamin (MULTIVITAMIN ADULT PO) Take by mouth 0 Suspended Multiple Vitamin (MULTIVITAMIN ADULT PO) Take by mouth 0 ActiveNONFORMULARY (2 sources)NONFORMULARY NUTRIFERON-2 1 TAB DAILY 0 SuspendedNONFORMULARY NUTRIFERON-2 1 TAB DAILY 0 Activenystatin 100 unt/mg topical ointment (2 sources)Polyene AntifungalStart: 06-17-2022 End: 28-86-8033otcapldk (MYCOSTATIN) 587093 UNIT/GM ointment Apply topically 2 times daily. 1 each 1 06/17/2022 08/28/2022 Discontinued (LIST CLEANUP)2 ml ondansetron 2 mg/ml injection (2 sources)Serotonin-3 Receptor AntagonistStart: 10-28-2022 End: 68-66-6626xcgqmvexrxe (ZOFRAN) injection 4 mgStart: mg, IntraVENous, EVERY 6 HOURS PRN, Starting on Fri09/02/22 at 1306, Until Discontinued, Nausea,VomitingoxyCODONE hydrochloride 5 mg oral tablet (1 source)Opioid AgonistStart: 06-17-2022 End: 75-71-2702wavPSVFDM (ROXICODONE) immediate release tablet 5 mgStart: 06-17-2022 End: 35-18-7490hpkIRMEIR (ROXICODONE) immediate release tablet 5 mgpioglitazone 15 mg oral tablet (20 sources)Peroxisome Proliferator Receptor alpha Agonist, Peroxisome Proliferator Receptor gamma Agonist, ThiazolidinedioneStart: 88-63-5746smbf 15 mg by mouth once daily15 mg, Oral, DAILY, First dose on Fri10/28/22 at 1215, Until DiscontinuedStart: 09-02-2022 End: 30-88-9770elaj 15 mg by mouth once daily15 mg, Oral, DAILY, First dose on Fri09/02/22 at 2030, Until Discontinuedtake 1 tablet by mouth once daily pioglitazone (ACTOS) 30 MG tablet Take 1 tablet by mouth daily 0 Suspended Probiotic Product (PROBIOTIC-10 PO) (2 sources)Probiotic Product (PROBIOTIC-10 PO) Take by mouth daily 0 Suspended Probiotic Product (PROBIOTIC-10 PO) Take by mouth daily 0 Activered yeast rice 600 mg oral tablet (6 sources)take 1 tablet by mouth once dailyRed Yeast Rice 600 MG TABS Take by mouth daily 0 Suspendedsoybean lecithin 1200 mg oral capsule (6 sources)take 1 capsule by mouth once dailylecithin 1200 MG CAPS capsule Take by mouth daily 0 Suspendedvitamin b12 1 mg/ml injectable solution (7 sources)Vitamin O01Sqpjf: 07-05-2024 End: 66-69-6019oubdmieofbdoxh (Vitamin B-12) injection 1,000 mcgStart: 07-05-2024 End: 56-18-8173anodqbdtpajhag (Vitamin B-12) injection 1,000 mcgStart: 07-05-2024 End: 47-48-6633khsgjn 1000 ug by intramuscular injection once1,000 mcg, Intramuscular, Once, On Fri07/05/24 at 1615, For 1 doseStart: 07-05-2024 End: 08-38-7050ctzgpj 1000 ug by intramuscular injection once1,000 mcg, Intramuscular, Once, On Fri07/05/24 at 1615, For 1 doseStart: 03-25-2024 End: 83-73-7006ufkpshdpspdgbs (Vitamin B-12) injection 1,000 mcg Problems Active Problems Problem ClassificationProblemDateDocumented DateEpisodic/ChronicAcute cerebrovascular disease (20 sources)Cerebral infarction, unspecified; Translations: [Cerebrovascular accident]Onset: 96-33-6062GfxdjnhJsyzlhs disorders (20 sources)Anxiety; Translations: [Anxiety disorder, unspecified]Onset: 626752-03-2768NulwkkuGrofktqp mellitus without complication (20 sources)Diabetes mellitus; Translations: [Type 2 diabetes mellitus]Onset: 190926-71-2326TnancbkHcyyrksln of lipid metabolism (20 sources)Hyperlipidemia; Translations: [Hyperlipidemia, unspecified]Onset: 203849-48-0533ArfplcqFahxlkor; convulsions (20 sources)Temporal lobe epilepsy; 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]Onset: 891726-23-5765NpwltcdZlemsepu; convulsions (7 sources)Seizure; Translations: [Unspecified convulsions]49-96-9694Bqxhxxrh Essential hypertension (20 sources)Hypertensive disorder; Translations: [Essential hypertension]Onset: 333453-40-6984JczqrrjVkudftghodzhx mental health disorders (4 sources)Eating disorder; Translations: [Chronic insomnia]31-13-5748Ilcxmbo Mood disorders (20 sources)Depressive disorder; Translations: [Depressive disorder]Onset: 797474-26-7375UdlshlpFxejbxg (1 source)Candidal vulvovaginitis; Translations: [Candidiasis of vulva and vagina]EpisodicNutritional deficiencies (1 source)Vitamin D deficiency, unspecified; Translations: [VITAMIN D DEFICIENCY UNSPECIFIED]Onset: 04-91-3573UhwwuifYnybacwbb or stenosis of precerebral arteries (1 source)Occlusion and stenosis of bilateral carotid arteries; Translations: [OCCLUSION AND STENOS PAU CAROTID ART]Onset: 43-31-7507FllfwuxXaujizvascmjsv (16 sources)Arthritis of left knee; Translations: [Unilateral primary osteoarthritis, left knee]Onset: 113000-56-2583ThxplygXjjic and unspecified benign neoplasm (1 source)Parathyroid boojbbl84-81-8235HcuyaabfNfevp bone disease and musculoskeletal deformities (4 sources)Other specified disorders of bone density and structure, other site; Translations: [OTH D/O BONE DEN STRUCT OTH SITE]Onset: 11-68-3327VecehrhjUvkym nervous system disorders (1 source)Difficulty in walking, not elsewhere classified; Translations: [DIFFICULTY IN WALKING NEC]Onset: 77-49-2859NzqkkylSbmsl nervous system disorders (11 sources)Carpal tunnel syndrome; Translations: [Carpal tunnel syndrome, right upper limb]Onset: 848622-24-3274OowiifbSflub nervous system disorders (19 sources)Brachial plexus disorder; Translations: [Brachial plexus disorders] Onset: 176168-16-8785XykfhkjNwxbb nervous system disorders (3 sources)Ulnar neuropathy; Translations: [Lesion of ulnar nerve, bilateral upper limbs]Onset: 997067-16-6346GjvnvxcKbwzz nervous system disorders (19 sources)Difficulty walking; Translations: [Difficulty in walking, not elsewhere classified]Onset: 562283-82-2252OaqlqwcLnjqi nervous system disorders (19 sources)Mortons neuroma of right foot; Translations: [Lesion of plantar nerve, right lower limb]Onset: 436024-24-1966QiymmxdQzzuf nervous system disorders (19 sources)Right foot neuritis; Translations: [Unspecified mononeuropathy of right lower limb]Onset: 900463-95-5652OjejcrnQrhtf nervous system disorders (16 sources)Bilateral ulnar nerve disorder; Translations: [Lesion of ulnar nerve, bilateral upper limbs]Onset: 256151-12-0506OrxkhnbVougt nervous system disorders (13 sources)Carpal tunnel syndrome of right wrist; Translations: [Carpal tunnel syndrome, right upper limb]Onset: 298571-21-5384IkhiwesCfexo nervous system disorders (13 sources)Disorder of nerve root and/or plexus; Translations: [Other nerve root and plexus disorders]Onset: 042507-12-3181NityqppJlwee nervous system disorders (2 sources)Postoperative pain ; Translations: [Other acute postprocedural pain] EpisodicOther nervous system disorders (1 source)Acute postoperative pain; Translations: [Other acute postprocedural pain]33-82-1339YfsztlpeQormm non-traumatic joint disorders (1 source)Pain in left wrist; Translations: [Pain in left wrist]Onset: 46-67-6308IyukqpeeOmdqh nutritional; endocrine; and metabolic disorders (1 source)Body mass index 30+ - jcxseks46-53-8175OsupszzMxukb nutritional; endocrine; and metabolic disorders (19 sources)Obesity; Translations: [Obesity, unspecified]Onset: 11-19-2021 27-26-3114MqoetfnDegeo nutritional; endocrine; and metabolic disorders (19 sources)Severe obesity; Translations: [Morbid (severe) obesity due to excess calories]Onset: 395082-25-5324JdkarlmHsrhf screening for suspected conditions (not mental disorders or infectious disease) (4 sources)Encounter for screening mammogram for malignant neoplasm of breast; Translations: [ENC SCR MAMMO MALIG NEOPLASM BREAST]Onset: 47-61-8529Jmhrkihf Other skin disorders (19 sources)Lichen sclerosus et atrophicus; Translations: [Circumscribed scleroderma]Onset: 098990-60-8587AmfxaryMidib upper respiratory disease (1 source)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; Translations: [Allergic rhinitis due to animal (cat) (dog) hair and dander]85-66-0987Xyqflkx Residual codes; unclassified (20 sources)Obstructive sleep apnea syndrome; Translations: [Obstructive sleep apnea (adult) (pediatric)]Onset: 513904-45-8120RqcwqdrQakxuxop codes; unclassified (19 sources)Idiopathic sleep related non-obstructive alveolar hypoventilation; Translations: [Idiopathic sleep related nonobstructive alveolar hypoventilation] Onset: 530978-79-8491ByjywlxGyrwrcoz codes; unclassified (1 source)Family history of malignant neoplasm of breast; Translations: [FAMILY HX MALIG NEOPLASM OF BREAST]Onset: 48-36-0727PolejumsCgwbprfg codes; unclassified (1 source)Family history of malignant neoplasm of ovary; Translations: [FAM HX MALIGNANT NEOPLASM OVARY]Onset: 49-74-5495FysfpmqgYjvvttrwzjde (1 source)Patient encounter status; Translations: [Preop testing]Unclassified (1 source)PERSONAL HISTORY OF COVID-19; Translations: [PERSONAL HISTORY OF COVID-19]Onset: 04-16-2022 Past or Other Problems Problem ClassificationProblemDateDocumented DateEpisodic/ChronicConditions associated with dizziness or vertigo (20 sources)Dizziness and giddiness; Translations: [Other peripheral vertigo, unspecified ear]Onset: 62-58-3363JlemblrdXcujbxxu mellitus without complication (1 source)Hyperglycemia, unspecified; Translations: [HYPERGLYCEMIA UNSPECIFIED] Onset: 10-50-6323JavoflboDnuvega and fatigue (1 source)Other fatigue; Translations: [OTHER FATIGUE]Onset: 08-03-8670Ofzngqlz Nausea and vomiting (19 sources)Postoperative nausea and vomiting; Translations: [Nausea with vomiting, unspecified]Onset: 583102-94-1096YplwhcuvEyaelnsknue deficiencies (19 sources)Vitamin B12 deficiency (non anemic); Translations: [Deficiency of other specified B group vitamins]Onset: 797413-61-6350RkrpkprqYiazd aftercare (20 sources)Long-term current use of systemic steroid; Translations: [group home (current) use of systemic steroids]Onset: 40-37-1460QwjmjaujWwcry aftercare (1 source)Other long-term (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; Translations: [OTH INTERMEDIATE CURRENT DRUG THERAPY]Onset: 10-54-7452RwynwkypVypdj connective tissue disease (20 sources)History of cervical spine fusion; Translations: [Arthrodesis status] Onset: 31-80-4009MacehmcsMyiad connective tissue disease (1 source)Myalgia, unspecified site; Translations: [MYALGIA UNSPECIFIED SITE] Onset: 92-81-8598AcspkdsyLqxjw connective tissue disease (4 sources)Pain in right foot; Translations: [PAIN IN RIGHT FOOT]Onset: 18-33-2399ZogurnxdMfnra connective tissue disease (19 sources)Muscle pain; Translations: [Myalgia, unspecified site]Onset: [id number] connective tissue disease (13 sources)Trochanteric bursitis of right hip; Translations: [Trochanteric bursitis, right hip]Onset: 073852-00-5861XlkdxilsPuegs female genital disorders (19 sources)Vaginal intraepithelial neoplasia grade 1; 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]Onset: [id number] lower respiratory disease (1 source)Personal history of pneumonia (recurrent); Translations: [PERSONAL HX OF PNEUMONIA RECURRENT]Onset: 94-75-5918ZtdvkkpiGtobe nervous system disorders (1 source)Other abnormalities of gait and mobility; Translations: [OTHER ABNORMALITIES GAIT AND MOBILITY]Onset: 56-51-6136OgzacujmHjidv nervous system disorders (20 sources)Allodynia; Translations: [Other disturbances of skin sensation] Onset: 289819-32-6960IaniegqqQaare nervous system disorders (1 source)Other acute postprocedural pain; Translations: [Other acute postprocedural pain]Onset: 38-18-4331JjepniziJmtpo non-traumatic joint disorders (4 sources)Pain in left shoulder; Translations: [PAIN IN LEFT SHOULDER]Onset: 58-04-9402LlqsklygKdgow skin disorders (1 source)Sebaceous cyst; Translations: [SEBACEOUS CYST]Onset: 03-28-2022 EpisodicPleurisy; pneumothorax; pulmonary collapse (20 sources)Atelectasis; Translations: [Atelectasis]Onset: 10-23-4664Cidwrimv Residual codes; unclassified (20 sources)Insomnia; Translations: [Insomnia, unspecified]Onset: 10-28-2022 53-26-9519InudtkklCmxpeikm codes; unclassified (1 source)Acquired absence of other specified parts of digestive tract; Translations: [ACQ ABSENCE OTH PART DIGESTV TRACT]Onset: 49-14-5099Opotbqiy Residual codes; unclassified (19 sources)Amnesia; Translations: [Other amnesia]Onset: [id number] EpisodicRespiratory failure; insufficiency; arrest (adult) (20 sources)Acute respiratory failure; Translations: [Acute respiratory failure with hypoxia]Onset: 74-34-8933UzmkgmvoNmwjrcjrbrd; intervertebral disc disorders; other back problems (20 sources)Spinal stenosis in cervical region; Translations: [Spinal stenosis, cervical region]Onset: 90-69-8724Hyaszolj Results Test NameValueInterpretationReference RangeFacilityBehavioral Health Telemedicineon 96-47-3986Xhpnesbbol Health [id number] Kristin Null 1960 F Date Provider Department [place] 09/15/2025 ROSALBA CURIEL [facility] [place] [facility] No family history on fileNormalUniversity of [facility] Health Telemedicineon 41-70-7180Iunvjxqiuk Health [id number] Kristin Null 1960 F Date Provider Department Center 09/02/2025 [facility]BA UCRIEL [facility] [place] [facility] No family history on fileNormalUniversity of [facility] Health Telemedicineon 88-70-7700Zjclasneef Health [id number] Kristin Null 1960 F Date Provider Department Center 08/10/2025 ROSALBA CURIEL [facility] [place] [facility] No family history on fileNormalUniversity of [facility] Health Telemedicineon 74-38-8868Vapsjfxpmb Health [id number] Kristin Null 1960 F Date Provider Department Center 08/03/2025 ROSALBA CURIEL [facility] [place] [facility] No family history on fileNormalUniversity of [facility] Health Telemedicineon 15-29-5802Whcixlloto Health [id number] Kristin Null 1960 F Date Provider Department Center 06/03/2025 ROSALBA CURIEL [facility] [place] [facility] No family history on fileNormalUniversity of [facility] Health Telemedicineon 21-93-0730Ljcnzasskl Health [id number] Kristin Null 1960 F Date Provider Department Center 05/06/2025 ROSALBA CURIEL [facility] [place] [facility] No family history on fileNormalUniversity of [facility] Health Telemedicineon 89-09-7506Tthreyokaz Health [id number] Kristin Null 1960 F Date Provider Department Center 04/08/2025 ROSALBA CURIEL [facility] [place] [facility] No family history on fileNormalUniversity of [facility] Health Telemedicineon 56-20-9006Czoprkonho Health [id number] Kristin Null 1960 F Date Provider Department Center 03/11/2025 ROSALBA CURIEL [facility] [place] [facility] No family history on fileNormalUniversity of [facility] Northeast Hospitalhavioral Health Telemedicineon 90-11-2776Iddnctvpia Health [id number] Kristin Null 1960 F Date Provider Department Center 02/25/2025 ROSALBA CURIEL [facility] [place] [facility] No family history on fileNormalUniversity of [facility] Health Telemedicineon 65-83-3317Ivdntzccaf Health [id number] Kristin Null 1960 F Date Provider Department Center 02/11/2025 ROSALBA CURIEL [facility] [place] [facility] No family history on fileNormalUniversity of [facility] Health Telemedicineon 06-55-8859Qgtkydfzkm Health [id number] Kristin Null 1960 F Date Provider Department Center 01/21/2025 ROSALBA CURIEL [facility] [place] [facility] No family history on fileNormalUniversity of [facility] Health Telemedicineon 00-05-3866Obriuqfgws Health [id number] Kristin Null 1960 F Date Provider Department Center 12/09/2024 ROSALBA CURIEL [facility] [place] [facility] No family history on fileNormalUniversity of [facility] Northeast Hospitalhavioral Health Telemedicineon 01-43-1508Tcrjezvjyc Health [id number] Kristin Null 1960 F Date Provider Department Center 11/19/2024 ROSALBA CURIEL [facility] [place] [facility] No family history on fileNormalUniversity of Memorial [facility] Northeast Hospitalhavioral Health Telemedicineon 07-17-9906Dlklbeuiip Health [id number] Kristin Null 1960 F Date Provider Department Center 10/22/2024 ROSALBA CURIEL [facility] [place] [facility] No family history on fileNormalUniversity of [facility] Medical Center Of El PasoOPERATIVE REPORTon 51-57-1220BZUIMJFBC REPORTHECTOR VILLE [id number] [place] [address] OPERATIVE REPORT PATIENT NAME: KRISTIN NULL : 1960 MED REC NO: [id number] ROOM: ACCOUNT NO: [id number] ADMIT DATE: 11/06/2023 PROVIDER: Endy Cruz MD [...] satisfactory condition. ENDY CRUZ MD TA/S_PTACS_01 Doc#: [id number] CC: Endy Cruz MDNoGreen Cross HospitalPO Glucose Fingerstickon 83-16-3615Dwguzzv [Mass/Vol]134 mg/uYNtnx78 - 105 mg/dLBON WYANDOT MEMORIAL HOSPITALComment on above: TESTING PERFORMED AT [address] [address] Interpretation and review of laboratory resultsAbnormalAUGUSTA HEALTH BON WYANDOT MEMORIAL HOSPITALOPERATIVE REPORTon 29-51-3027VJSCITVJQ [address] [address] OPERATIVE REPORT PATIENT NAME: KRISTIN NULL : 1960 MED REC NO: [id number] ROOM: ACCOUNT NO: [id number] ADMIT DATE: 08/18/2023 PROVIDER: Endy Cruz MD DATE OF PROCEDURE: 08/18/2023 SURGEON: Endy Cruz MD METAL MOULDER: Hayder Burch MD ANESTHESIA: General inhalation. PREOPERATIVE [...] room in satisfactory condition. ENDY CRUZ MD BHASKAR/Dianne_MORCJ_01 Doc#: [id number] CC: Endy Cruz MDNoGreen Cross HospitalBUN + Creatinineon 97-38-0897Lnpmksngrr [Mass/Vol]0.7 mg/dLNormal0.5-0.9[facility] For RehabilitationComment on above:Performed By: #### BUNCRT, GLU, CBC, LYTE #### [facility] [address] [place] [address] Donor Relations Manager: Kenyon Hewitt MDGFR/1.73 sq M.predicted among non-blacks MDRD (S/P/Bld) [Vol rate/Area]mL/min/{1.73_m2}Normal>60MerGlendale Research HospitalComment on above:Result Comment: These results are not intended for [...] or following therapy that affects renal tubular secretion.Performed By: #### BUNCRT, GLU, CBC, LYTE #### [employer] [address] [place] [address] Donor Relations Manager: Kenyon Hewitt MDUrea nitrogen [Mass/Vol]19 mg/dLNormal8-23[facility] For RehabilitationComment on above:Performed By: #### BUNCRT, GLU, CBC, LYTE #### [facility] [address] [place] [address] Donor Relations Manager: Nayana Tyson 73-40-8145Uubobydiief distribution width (RBC) [Ratio]12.8 %Ocnjnq24.8-14.4[facility] For RehabilitationComment on above:Performed By: #### BUNCRT, GLU, CBC, LYTE #### [facility] [address] [place] [address] Donor Relations Manager: Kenyon Hewitt MDHematocrit (Bld) [Volume fraction]45.0 %Normal 36.3-47.1MCentinela Freeman Regional Medical Center, Marina CampusComment on above:Performed By: #### BUNCRT, GLU, CBC, LYTE #### [address] [address] Donor Relations Manager: Kenyon Hewitt MDHemoglobin (Bld) [Mass/Vol]15.2 g/dLHigh 11.9-15.1MCentinela Freeman Regional Medical Center, Marina CampusComment on above:Performed By: #### BUNCRT, GLU, CBC, LYTE #### [address] [address] Donor Relations Manager: ANALIA TysonCH (RBC) [Entitic mass]32.3 rqNakcwn90.2-33.5 [facility] For RehabilitationComment on above:Performed By: #### BUNCRT, GLU, CBC, LYTE #### [address] [address] Donor Relations Manager: GARRET TysonC (RBC) [Mass/Vol]33.8 g/xFZndvsx24.4-34.8 [facility] For RehabilitationComment on above:Performed By: #### BUNCRT, GLU, CBC, LYTE #### [place] [address] Donor Relations Manager: ANALIA TysonCV (RBC) [Entitic vol]95.7 tVYipgmj45.6-102.9 [facility] For RehabilitationComment on above:Performed By: #### BUNCRT, GLU, CBC, LYTE #### [place] [address] Donor Relations Manager: Kenyon Hewitt MDNRBC Automated0.0 per 100 WBCNormal0.0[facility] For RehabilitationComment on above:Performed By: #### BUNCRT, GLU, CBC, LYTE #### [address] [address] Donor Relations Manager: Nida Tysonlet mean volume (Bld) [Entitic vol]10.0 fL Normal8.1-13.5[facility] For RehabilitationComment on above:Performed By: #### BUNCRT, GLU, CBC, LYTE #### [facility] [address] [place] [address] Donor Relations Manager: Nida Tysonjewish healthcare center ([facility]) [#/Vol]201 10*3/iJPszunc845-747 [facility] For RehabilitationComment on above:Performed By: #### BUNCRT, GLU, CBC, LYTE #### [facility] [address] [place] [address] Donor Relations Manager: RANDALL Tyson ([facility]) [#/Vol]4.70 10*6/uLNormal3.95-5.11 [facility] For RehabilitationComment on above:Performed By: #### BUNCRT, GLU, CBC, LYTE #### [address] [address] Donor Relations Manager: FLORY Tyson ([facility]) [#/Vol]7.1 10*3/uLNormal3.5-11.3MCentinela Freeman Regional Medical Center, Marina CampusComment on above:Performed By: #### BUNCRT, GLU, CBC, LYTE #### [facility] [employer] [address] [place] [address] Donor Relations Manager: Kenyon Hewitt MDElectrolyteson 46-38-7565Xsqcl gap [Moles/Vol]10 mmol/LNormal9-17[facility] For RehabilitationComment on above:Performed By: #### BUNCRT, GLU, CBC, LYTE #### [facility] [employer] [address] [place] [address] Donor Relations Manager: TIMOTHY Tysonhloride [Moles/Vol]98 mmol/AJddlwi51-552PcvhzCleveland Clinic Children'S Hospital For RehabilitationComment on above:Performed By: #### BUNCRT, GLU, CBC, LYTE #### [facility] [employer] [address] [place] [address] Donor Relations Manager: Kenyon Hewitt MDCO2 [Moles/Vol]28 mmol/CHpixok16-35MpvsuCleveland Clinic Children'S Hospital For RehabilitationComment on above:Performed By: #### BUNCRT, GLU, CBC, LYTE #### [employer] [address] [place] [address] Donor Relations Manager: SANGITA Tysonotassium [Moles/Vol]4.4 mmol/LNormal3.7-5.3 [facility] For RehabilitationComment on above:Result Comment: SPECIMEN SLIGHTLY HEMOLYZED, RESULTS MAY BE ADVERSELY AFFECTED.Performed By: #### BUNCRT, GLU, CBC, LYTE #### [employer] [address] [place] [address] Donor Relations Manager: Kenyon Hewitt MDSodium [Moles/Vol]136 mmol/FShrmjm539-794JtpelCleveland Clinic Children'S Hospital For RehabilitationComment on above:Performed By: #### BUNCRT, GLU, CBC, LYTE #### [employer] [address] [place] [address] Donor Relations Manager: Kenyon Hewitt MDGlucoseon 49-46-3974Qshmazc [Mass/Vol]84 mg/dL Pcamue74-46JoptuCentinela Freeman Regional Medical Center, Marina CampusComment on above:Performed By: #### BUNCRT, GLU, CBC, LYTE #### [facility] [address] [place] [address] Donor Relations Manager: WILFRID Tyson MAMM SCREEN 3D PAU CADon 85-05-8049OV MAMM SCREEN 3D PAU CADPatient: KRISTIN NULL Exam Date: 03/11/2023 : 1960 Gender:F Ordering : PITA VENTURA Admission #: [id number] Family : Order #: [id number] CLICK HERE TO VIEW EXAM RADIOLOGY REPORT [...] uterine cancer at age 61. LOCATION: [facility] BREAST COMPOSITION: Scattered areas fibroglandular density. FINDINGS: [...] by: Rocío Reyes MD on 03/12/2023 at 09:08[facility] HospitalXR DEXA BONE DENSITYon 65-21-8454RC DEXA BONE DENSITYEXAMINATION: XR DEXA BONE DENSITY, 03/07/2023 3:31 PM EDT HISTORY: [...] Electronically authenticated by: ROCÍO REYES Date: 2023-03-08 08:59[facility] HospitalINSULINon 44-11-4778Hsamfan24.0 uIU/mLNormal2.6-24.9The [facility] Medical CenterComment on above:Performed By: #### VITAD #### [facility] [address] [place] [address] Dr. Sveta Nunez AUTO DIFFon 19-46-8428IOAI #0.0 103/ulNormal0.0-0.1The [facility] Medical CenterComment on above:Performed By: #### VITAD #### [facility] [address] [place] [address] Dr. Sveta VelasquezBasophils/100 WBC (Bld)0.5 %Normal0.2-2.0[facility] Comment on above:Performed By: #### VITAD #### [facility] [address] [place] [address] Dr. Sveta Nunez #0.2 103/ulNormal0.0-0.7The [facility] Medical CenterComment on above: Performed By: #### VITAD #### [facility] [address] [place] [address] Dr. Sveta Blankenshiposinophils/100 WBC (Bld)2.6 %Normal0.9-7.0The [facility] Comment on above:Performed By: #### VITAD #### [facility] [address] [place] [address] Dr. Sveta Blankenshiprythrocyte distribution width (RBC) [Ratio]12.7 %Izuito02.0-15.0 [facility] CenterComment on above:Performed By: #### VITAD #### [facility] [address] [place] [address] Dr. Sveta VelasquezHematocrit (Bld) [Volume fraction]40.5 %Rvchrs51.0-48.0The [facility] CenterComment on above:Performed By: #### VITAD #### [facility] [address] [place] [address] Dr. Sveta VelasquezHemoglobin (Bld) [Mass/Vol]13.7 g/mRVcjnuz76.0-16.0The [facility] CenterComment on above:Performed By: #### VITAD #### [facility] [address] [place] [address] Dr. Sveta Neal #0.01 10e3/ulNormal0.00-0.03The [facility] Medical CenterComment on above:Performed By: #### VITAD #### [facility] [address] [place] [address] Dr. Sveta VelasquezIG %0.2 %Normal0.0-0.5The [facility] CenterComment on above: Performed By: #### VITAD #### [facility] [address] [place] [address] Dr. Sveta Coleman #2.0 103/ulNormal1.2-3.8The [facility] CenterComment on above:Performed By: #### VITAD #### [facility] [address] [place] [address] Dr. Sveta Kilgorehocytes/100 WBC (Bld)32.4 %Nxpsvh09.5-60.0The [facility] CenterComment on above:Performed By: #### VITAD #### [facility] [address] [place] [address] Dr. Sveta Mcbride DIFF REQNONormalThe [facility] CenterComment on above: Performed By: #### VITAD #### [facility] [address] [place] [address] Dr. Sveta Bhagat (RBC) [Entitic mass]31.1 bcSgebmh77.7-34.0The [facility] CenterComment on above:Performed By: #### VITAD #### [facility] [address] [place] [address] Dr. Sveta Myers (RBC) [Mass/Vol]33.8 g/mJOxpfdr08.9-35.2The [facility] CenterComment on above:Performed By: #### VITAD #### [facility] [address] [place] [address] Dr. Sveta Myers (RBC) [Entitic vol]91.8 fEGmrjlb06.0-99.0The [facility] CenterComment on above:Performed By: #### VITAD #### [facility] [address] [place] [address] Dr. Sveta Lopez #0.5 103/ulNormal0.3-0.8The [facility] CenterComment on above:Performed By: #### VITAD #### [facility] [address] [place] [address] Dr. Sveta Hurtadoocytes/100 WBC (Bld)8.8 %Normal1.7-12.0The [facility] Comment on above:Performed By: #### VITAD #### [facility] [address] [place] [address] Dr. Sveta WooUT #3.4 103/ulNormal1.4-6.5The [facility] CenterComment on above:Performed By: #### VITAD #### [facility] [address] [place] [address] Dr. Sveta Wooutrophils/100 WBC (Bld)55.5 %Lvmczi71.0-75.0The [facility] CenterComment on above:Performed By: #### VITAD #### [facility] [address] [place] [address] Dr. Sveta Faustinlet mean volume (Bld) [Entitic vol]9.6 fLNormal9.5-13.5The [facility] CenterComment on above:Performed By: #### VITAD #### [facility] [address] [place] [address] Dr. Sveta VelasquezPLT280 103/myAzgsti017-515Hpb [facility] CenterComment on above: Performed By: #### VITAD #### [facility] [address] [place] [address] Dr. Sveta VelasquezRBC4.41 106/ulNormal4.20-5.40The [facility] CenterComment on above:Performed By: #### VITAD #### [facility] [address] [place] [address] Dr. Sveta VelasquezWBC6.1 103/ulNormal4.0-11.0The [facility] CenterComment on above: Performed By: #### VITAD #### [facility] [address] [place] [address] Dr. Sveta Diop 61-70-5917Nwvfpadqb [Mass/Vol]8.4 ug/mLCritically low 10.0-20.0The [facility] CenterComment on above:Performed By: #### PHChris #### [facility] [address] [address] [address] Sveta VelasquezFREE T3on 03-77-8879QXXH T32.33 pg/mlLNormal2.18-3.98[facility] on above:Performed By: #### VITAD #### [facility] [address] [place] [address] Dr. Sveta VelasquezGLYCOHEMOGLOBIN A1Con 05-64-8001GRM RECOMMENDATIONSEE BELOWNoBarnesville HospitalComment on above:Result Comment: ADA RECOMMENDED LIMIT 4.0 - 6.0 ADA THERAPEUTIC TARGET < 7.0 ACTION SUGGESTED > 7.0Performed By: #### MISC #### [facility] [address] [place] [address] Dr. Sveta VelasquezGlucose [Mass/Vol]123 mg/dLNoParkview Health Bryan HospitalComment on above:Performed By: #### MISC #### [facility] [address] [place] [address] Dr. Sveta VelasquezHbA1c (Bld) [Mass fraction]5.9 %Normal4.5-6.2The [facility] on above:Performed By: #### MISC #### [facility] [address] [place] [address] Dr. Sveta VelasquezLIPID PROFILEon 13-74-8657SXAX-HDL RATIO NORMSEE [facility] HospitalCominsight surgical hospital on above:Result Comment: 3.3 - 4.4 LOW RISK 4.4 - 7.1 AVERAGE RISK 7.1 - 11.0 MODERATE RISK >11.0 HIGH RISKPerformed By: #### VITAD #### [facility] [address] [place] [address] Dr. Sveta VelasquezCholesterol [Mass/Vol]257 mg/dLCritically high<=200The [facility] on above:Performed By: #### VITAD #### [facility] [address] [place] [address] Dr. Sveta VelasquezCholesterol in HDL [Mass/Vol]45 mg/eGBftxyi78-02Air Daniel HospitalComment on above:Performed By: #### VITAD #### [facility] [address] [place] [address] Dr. Sveta VelasquezCholesterol in LDL [Mass/Vol]168.8 mg/dLShelby Memorial HospitalCominsight surgical hospital on above:Performed By: #### VITAD #### [facility] [address] [place] [address] Dr. Sveta Choesterdamon.total/Cholesterol in HDL [Mass ratio]5.7 {ratio} NormalThe [facility] on above:Performed By: #### VITAD #### [facility] [address] [place] [address] Dr. Sveta Anderson NORMAL> or = 60 mg/dl - LOW CARDIOVASCULAR RISK <40 mg/dl - HIGH CARDIOVASCULAR RISKShelby Memorial HospitalCominsight surgical hospital on above:Performed By: #### VITAD #### [facility] [address] [place] [address] Dr. Sveta Kim CALC NORMALSEE BELOWShelby Memorial HospitalComment on above:Result Comment: <100 mg/dl OPTIMAL 100 - 129 mg/dl NEAR OR ABOVE OPTIMAL 130 - 159 mg/dl BORDERLINE HIGH 160 - 189 mg/dl HIGH >190 mg/dl VERY HIGH Performed By: #### VITAD #### [facility] [address] [place] [address] Dr. Sveta VelasquezTriglyceride [Mass/Vol]216 mg/dLCritically high<=150The [facility] on above:Performed By: #### VITAD #### [facility] [address] [place] [address] Dr. Sveta LeivaLDL CALC43.2 mg/dLNoParkview Health Bryan HospitalComment on above: Performed By: #### VITAD #### [facility] [address] [place] [address] Dr. Sveta Mullins 14(COMP METB)on 26-17-0880Scjsakz [Mass/Vol]3.9 g/dLNormal 3.4-5.0[facility] on above:Performed By: #### VITAD #### [facility] [address] [address] [address] Sveta VelasquezAlbumin/Globulin [Mass ratio]1.0 {ratio}NormalThe [facility] CenterComment on above:Performed By: #### VITAD #### [facility] [address] [address] [address] Sveta KiddP [Catalytic activity/Vol]97 U/KLxudmx02-253Huj [facility] CenterComment on above:Performed By: #### VITAD #### [facility] [address] [address] [address] Sveta KiddT [Catalytic activity/Vol]33 U/UZdxvjv98-32Vbo [facility] CenterComment on above:Performed By: #### VITAD #### [facility] [address] [place] [address] Dr. Sveta VelasquezAnion gap [Moles/Vol]9.0 mmol/LNormalThe [facility] CenterComment on above:Performed By: #### VITAD #### [facility] [address] [place] [address] Dr. Sveta VelasquezAST [Catalytic activity/Vol]25 U/XDqmenq94-84Xed [facility] CenterCominsight surgical hospital on above:Performed By: #### VITAD #### [facility] [address] [place] [address] Dr. Sveta VelasquezBilirubin [Mass/Vol]0.3 mg/dLNormal0.2-1.0The [facility] Comment on above:Performed By: #### VITAD #### [facility] [address] [place] [address] Dr. Sveta VelasquezCalcium [Mass/Vol]9.6 mg/dLNormal8.5-10.1The [facility] Comment on above:Performed By: #### VITAD #### [facility] [address] [place] [address] Dr. Sveta VelasquezChloride [Moles/Vol]101 mmol/QApkcsz73-785Ftb [facility] Comment on above:Performed By: #### VITAD #### [facility] [address] [address] [address] Sveta VelasquezCO2 [Moles/Vol]34.4 mmol/LCritically high21.0-32.0The [facility] CenterComment on above:Performed By: #### VITAD #### [facility] [address] [address] [address] Sveta VelasquezCreatinine [Mass/Vol]0.76 mg/dLNormal0.55-1.02The [facility] CenterComment on above:Performed By: #### VITAD #### [facility] [address] [address] [address] Bangura ChangEGFR-AF PAKISTANI>60Normal>=60The [facility] CenterComment on above:Performed By: #### VITAD #### [facility] [address] [place] [address] Dr. Sveta BlankenshipGFR-NON AF PAKISTANI>60Normal>=60The [facility] CenterComment on above:Performed By: #### VITAD #### [facility] [address] [address] [address] Sveta VelasquezGlobulin (S) [Mass/Vol]4.0 g/dLNormalThe [facility] CenterComment on above:Performed By: #### VITAD #### [facility] [address] [place] [address] Dr. Sveta VelasquezGlucose [Mass/Vol]136 mg/dLCritically yycg85-421Vhc [facility] CenterComment on above:Performed By: #### VITAD #### [facility] [address] [address] [address] Sveta VelasquezPotassium [Moles/Vol]4.4 mmol/LNormal3.5-5.1The [facility] Comment on above:Performed By: #### VITAD #### [facility] [address] [address] [address] Sveta VelasquezProtein [Mass/Vol]7.9 g/dLNormal6.4-8.2The [facility] Comment on above:Performed By: #### VITAD #### [facility] [address] [address] [address] Sveta VelasquezSodium [Moles/Vol]140 mmol/QKovmmx370-623Zea [facility] Comment on above:Performed By: #### VITAD #### [facility] [address] [place] [address] Dr. Sveta VelasquezUrea nitrogen [Mass/Vol]19.0 mg/dLCritically high7.0-18.0The [facility] CenterComment on above:Performed By: #### VITAD #### [facility] [address] [place] [address] Dr. Sveta VelasquezUrea nitrogen/Creatinine [Mass ratio]25.0 mg/mgNoParkview Health Bryan HospitalComment on above:Performed By: #### VITAD #### [facility] [address] [place] [address] Dr. Sveta Garner4on 48-59-1932T0 [Mass/Vol]5.60 ug/dLNormal4.80-13.90The [facility] CenterComment on above:Performed By: #### VITAD #### [facility] [address] [place] [address] Dr. Sveta Rios 53-65-6707COL7.059 uIU/mLNormal0.358-3.740The [facility] CenterComment on above:Performed By: #### VITAD #### [facility] [address] [place] [address] Dr. Sveta VelasquezVITAMIN D 25 OHon 55-36-1578MEC D 25-OH59.4 ng/mLNormalThe [facility] CenterComment on above:Performed By: #### VITAD #### [facility] [address] [place] [address] Dr. Sveta Lowe [place]ANGES[place] BELOWShelby Memorial HospitalComment on above: Result Comment: <20 ng/mL Vit D deficient 20 - <30 ng/mL Vit D insufficient 30 - 100 ng/mL Vit D sufficient >100 ng/mL Potential ToxicityPerformed By: #### VITAD #### [facility] [address] [address] [address] Sveta Saunders Metabolic Panel w/ Reflex to MGon 24-03-0623Rppev gap [Moles/Vol]10 mmol/L9 - 17 mmol/LBON [facility] HOSPITALCalcium [Mass/Vol]9.2 mg/dL8.6 - 10.4 mg/dLBON [facility]ORIAL HOSPITALChloride [Moles/Vol]99 mmol/L98 - 107 mmol/LBON [facility]ORIAL HOSPITALCO2 [Moles/Vol]29 mmol/L20 - 31 mmol/LBON [facility] HOSPITALCreatinine [Mass/Vol]0.67 mg/dL0.50 - 0.90 mg/dLBON [facility] Veezeon GeaComGFR/1.73 sq M.predicted MDRD (S/P/Bld) [Vol rate/Area]- PINFBON WYANDOT MEMORIAL HOSPITALComment on above: Effective Aug 12, 2022 These [...] therapy that affects renal tubular secretion. Glucose [Mass/Vol]167 mg/xYJrct40 - 99 mg/dLBON [facility] Interpretation and review of laboratory resultsAbnormSentara Virginia Beach General Hospital Potassium [Moles/Vol]3.9 mmol/L3.7 - 5.3 mmol/LBON [facility] MEMORIAL HOSPITALSodium [Moles/Vol]138 mmol/L135 - 144 mmol/LBON [facility] HOSPITALUrea nitrogen (BldV) [Mass/Vol]13 mg/dL8 - 23 mg/dLBON [facility] HEALTH CENTERPO Glucose Fingerstickon 34-16-3996Tpmiock [Mass/Vol]96 mg/dL65 - 105 mg/dLBON [facility] HEALTH CENTERGlucose [Mass/Vol]166 mg/dL High65 - 105 mg/dLBON [facility] HOSPITALInterpretation and review of laboratory resultsAbnormalPOPLAR SPRINGS [facility] Creatinineon 14-43-5666Wosxtxzyea [Mass/Vol]0.59 mg/dL0.50 - 0.90 mg/dLBON [facility] HOSPITALGFR/1.73 sq M.predicted MDRD (S/P/Bld) [Vol rate/Area]- ISAACF [facility] HEALTHComment on above: Effective Aug 12, 2022 These [...] following therapy that affects renal tubular secretion. AUGUSTA HEALTHFLUORO FOR SURGICAL PROCEDURESon 65-37-9689Auweiwtif exam is complete. No Radiologist dictation. Please follow up with ordering provider. MHPN RIS CONSOLIDATEDPOC Glucose Fingerstickon 33-71-9044Wzofhzc [Mass/Vol]136 mg/mCFppx11 - 105 mg/dLBON [facility]ORIAL HOSPITALInterpretation and review of laboratory resultsAbnoHans P. Peterson Memorial Hospital Glucose [Mass/Vol]158 mg/tMVzsh47 - 105 mg/dLBON [facility] Interpretation and review of laboratory resultsAbnormInova Women's HospitalGlucose [Mass/Vol]154 mg/sVTwzs05 - 105 mg/dLBON [facility] HOSPITALInterpretation and review of laboratory resultsAbnormInova Health SystemGlucose [Mass/Vol]122 mg/dRPchv09 - 105 mg/dLBON [facility] HOSPITALInterpretation and review of laboratory results AbnormalBON AVER[facility] DELLS AREA HEALTH CENTERCT CHEST PULMONARY EMBOLISM W CONTRASTon . No pulmonary emboli. 2. Minimal soft tissue gas and soft tissue stranding felt related to postoperative change from anterior cervical fusion at C5-C6 and C6-C7. No abscess collection is identified. 3. Linear bibasilar airspace disease predominantly within the lower lobes, likely representing atelectasis. No endobronchial material seen to suggest definite aspiration. Pneumonia in the differential however. [facility] RIS CONSOLIDATEDEXAMINATION: CTA OF THE CHEST 09/04/2022 4:30 am [...] sternal fracture or acute vertebral body fracture. [facility] Rocío Jamil MD - 09/04/2022 EXAMINATION: CTA OF THE [...] definite aspiration. Pneumonia in the differential however. [facility] instruMagic Work Phone: radiology Study observation (narrative)[facility] HOSPITALGameDuell Work Phone: cT CHEST PULMONARY EMBOLISM W CONTRASTOrdered By: Rocío Philippe on 81-92-8718W[facility] instruMagic Work Phone: poc Glucose Fingerstickon 56-81-1507Zfncegg [Mass/Vol] 163 mg/lDClyu71 - 105 mg/dLBON [facility] MEDICAL CENTERGameDuellInterpretation and review of laboratory resultsAbnormCleveland ClinicAppknox [facility] HEALTHAppknox [facility] GeaCom Glucose [Mass/Vol]127 mg/pAUnyc27 - 105 mg/dLBON [facility] MEDICAL CENTERGoji GeaCom Interpretation and review of laboratory resultsAbnormCJW Medical CenterAppknox [facility] CENTERCB with Auto Differentialon 35-78-0294Apnffudo Eos #[facility] WiFastOHIO STATE HEALTH SYSTEMAbsolute Immature Granulocyte0.06[facility] HOSPITALAppknox [facility] GeaCom Absolute Lymph #1.16BON [facility]ICAL CENTERGameDuellAbsolute Toombs #0.82CHAR[facility] RIVER HOSPITALOURS MERCY HEALTHBasophils AbsoluteBON SECAVOYELLES HOSPITAL HEALTHBasophils/100 WBC (Bld)0 %0 - 2 %[facility]USTA HEALTHEosinophils/100 WBC (Bld)0 %Low1 - 4 %BON [facility] HOSPITALHematocrit (Bld) [Volume fraction]43.0 %36.3 - 47.1 %BON [facility] MEMORIAL HOSPITALHemoglobin (Bld) [Mass/Vol]14.0 g/dL11.9 - 15.1 g/dLBON SECCLEVELAND CLINIC MERCY HOSPITALImmature granulocytes/100 WBC (Bld)1 %Vjms1YVM [facility] Interpretation and review of laboratory resultsAbnormalBON [facility] Lymphocytes/100 WBC (Bld)11 %Low24 - 43 %[facility]ITAL CENTERH (RBC) [Entitic mass]31.2 pg25.2 - 33.5 pgBON UC MEDICAL CENTERHC (RBC) [Mass/Vol] 32.6 g/dL28.4 - 34.8 g/dLBON SECOHIOHEALTH SOUTHEASTERN MEDICAL CENTERV (RBC) [Entitic vol]95.8 fL 82.6 - 102.9 fLBON WYANDOT MEMORIAL HOSPITALMonocytes/100 WBC (Bld)8 %3 - 12 %[facility] HEALTHNRBC Automated0.00.0 per 100 WBCAUGUSTA HEALTH Platelet distribution width (Bld) [Ratio]13.1 %11.8 - 14.4 %[facility]UST[facility] HEALTHPlatelet mean volume (Bld) [Entitic vol]10.1 fL8.1 - 13.5 fLPAGE HOSPITAL SECAVOYELLES HOSPITAL HEALTHPlatelets (Bld) [#/Vol]181 10*3/uLBON SECAVOYELLES HOSPITAL HEALTHRBC (Bld) [#/Vol]4.49 10*6/uL3.95 - 5.11 m/uLBON WYANDOT MEMORIAL HOSPITALSegmented neutrophils/100 WBC (Bld)80 %High36 - 65 %[facility]USTA HEALTHSegs Absolute 8.62HighBON WYANDOT MEMORIAL HOSPITALWBC (Bld) [#/Vol]10.7 10*3/uLBON [facility] HEALTHMicroscopic Urinalysison 51-59-1185Ljkezmfpzn Cells UA0 TO 2BON W[facility]ANDOT MEMORIAL HOSPITALRBC, UANoneBON [facility]OT MEMORIAL HOSPITALComment on above:Reference range defined for non-centrifuged specimen.WBC, UA2 TO 5BON [facility] CENTERPO Glucose Fingerstickon 09-03-2022 Glucose [Mass/Vol]163 mg/cSEsal54 - 105 mg/dLBON [facility] Interpretation and review of laboratory resultsAbnormalBON [facility] BON [facility] HOSPITALGlucose [Mass/Vol]189 mg/bMYmxh58 - 105 mg/dLBON [facility] HEALTHInterpretation and review of laboratory resultsAbnormalBON [facility] HEALTH CENTERGlucose [Mass/Vol]122 mg/jAIyvl12 - 105 mg/dLBON [facility] HEALTHInterpretation and review of laboratory results AbnormalBON [facility] HEALTH CENTERGlucose [Mass/Vol]140 mg/sLLndr15 - 105 mg/dLBON [facility] HEALTHInterpretation and review of laboratory resultsAbnormalBON [facility] SPECIMEN REJECTIONon 47-07-5599Rwtuwre TestCDPBON WYANDOT MEMORIAL HOSPITALReason for RejectionUnable to perform testing: Specimen hemolyzed.[facility] Specimen source Nom (Unsp spec).BLOODBON AVER[facility] DELLS AREA HEALTH CENTERUrinalysis with Reflex to Cultureon 92-28-6833Vmwjbhioz UrineNegative NEGATIVEAUGUSTA HEALTHColor, UAYellowYellowBON [facility] Glucose, UrNegativeNEGATIVEDICKENSON COMMUNITY HOSPITAL HEALTHInterpretation and review of laboratory resultsAbnormalBON [facility] HEALTHKetones Ql (U)NegativeNEGATIVE [facility]A HEALTHLeukocyte esterase Test strip Ql (U)TRACEAbnormal NEGATIVEBON WYANDOT MEMORIAL HOSPITALNitrite, UrineNegativeNEGATIVEBON [facility] HEALTHpH, UA7.55.0 - 8.0AU[facility]USTA HEALTHProtein, UANegativeNEGATIVEDICKENSON COMMUNITY HOSPITAL HEALTHSpecific [place], UA1.0151.005 - 1.030BON W[facility]OT MEMORIAL HOSPITALTurbidity UAClearClearBON WYANDOT MEMORIAL HOSPITALUrine HgbNegativeNEGATIVEBON [facility] CENTERjobsite123 [facility] HOSPITALUrobilinogen, UrineNormalNormalBON [facility] MEDICAL CENTERGameDuellCHARLES RIVER HOSPITALjobsite123 [facility] HOSPITALXR CHEST PORTABLEon 22-58-0862Mme normal pulmonary vascularity without overt edema. [facility] RIS CONSOLIDATEDEXAMINATION: ONE XRAY VIEW OF THE CHEST 09/03/2022 [...] is noted. Pulmonary vascularity top normal. [facility] Kristin Cates MD - 09/03/2022 EXAMINATION: ONE XRAY VIEW [...] Top normal pulmonary vascularity without overt edema. [place] [employer] Work Phone: radiology Study observation (narrative)[place] [employer] Work Phone: XR CHEST PORTABLEOrdered By: Kristin Lorenzo on 09-03-2022 [facility] inst[employer] Work Phone: POC Glucose Fingerstickon 85-04-3814Rtcvxnk [Mass/Vol] 132 mg/mBTebs82 - 105 mg/dLBON instruMagicInterpretation and review of laboratory resultsAbnormalBON [facility] MEDICAL CENTERGameDuellCHARLES RIVER HOSPITALjobsite123 [facility] HOSPITALXR CERVICAL SPINE 1 VWon 21-16-6749Utndvndfj exam is complete. No Radiologist dictation. Please follow up with ordering provider. [facility] CONSOLIDATEDRadiology exam is complete. No Radiologist dictation. Please follow up with ordering provider. [facility] CONSOLIDATEDRadiology exam is complete. No Radiologist dictation. Please follow up with ordering provider. [facility] CONSOLIDATEDEKG 12 LeadOrdered By: Karina Lee on 62-25-7704Nwzrlg [id number] instruMagic Work Phone: P Jmdk77tnfnuulUGO instruMagic Work Phone: P-R Nfwdrbjy475 msBON instruMagic Work Phone: [phone]-T Xtrwkbnp098 msArkansas Department of Education Work Phone: [phone] Eauwztxp85 msBON [employer] Work Phone: [phone] Calculation (Bazett)436 msBON instruMagic Work Phone: R Bazt77dwvkaaiYZC inst[employer] Work Phone: [phone] Xfpp27vtlxyglBMJ instru[employer] Work Phone: Ventricular Dbux15SSRUSJ instruMagic Work Phone: BON inst[employer]Magic Work Phone: [phone] 12 Leadon 11-70-9521Xvqkrs sinus rhythm Normal ECG When compared with ECG of 29-JAN-2021 14:31, No significant change was foundNOR[facility] Karina Haywood MD - 08/29/2022 Normal sinus rhythm Normal ECG When compared with ECG of 29-JAN-2021 14:31, No significant change was found BON [employer] Phone: bUN & Creatinineon 35-92-2249Scsbieqbqz [Mass/Vol]0.61 mg/dL0.50 - 0.90 mg/dLBON instruMagicGFR/1.73 sq M.predicted MDRD (S/P/Bld) [Vol rate/Area]- PINFBON [facility] Samaritan Hospitalment on above: Effective Aug 12, 2022 These [...] tubular secretion. Interpretation and review of laboratory resultsAbnormalBON [facility] Urea nitrogen (BldV) [Mass/Vol]24 mg/dLHigh8 - 23 mg/dLBON [facility] CBCon 47-32-6639Xsxpnvxpew (Bld) [Volume fraction]43.3 %36.3 - 47.1 %[facility]UST[facility] HEALTHHemoglobin (Bld) [Mass/Vol]14.1 g/dL11.9 - 15.1 g/dLBON UC MEDICAL CENTERH (RBC) [Entitic mass]31.1 pg25.2 - 33.5 pgBON [facility] MEDICAL CENTERHC (RBC) [Mass/Vol]32.6 g/dL28.4 - 34.8 g/dLBON [facility] MEDICAL CENTERV (RBC) [Entitic vol]95.4 fL82.6 - 102.9 fLAUGUSTA HEALTHNRBC Automated 0.00.0 per 100 WBCBON WYANDOT MEMORIAL HOSPITALPlatelet distribution width (Bld) [Ratio]12.9 %11.8 - 14.4 %[facility] HEALTHPlatelet mean volume (Bld) [Entitic vol]10.0 fL8.1 - 13.5 fLAUGUSTA HEALTHPlatelets (Bld) [#/Vol] 182 10*3/uLBON WYANDOT MEMORIAL HOSPITALRBC (Bld) [#/Vol]4.54 10*6/uL3.95 - 5.11 m/uL [facility]UGUSTA HEALTHWBC (Bld) [#/Vol]6.6 10*3/uLBON [facility] DELLS AREA HEALTH CENTERElectrolyte Panelon 39-64-9964Rwkpw gap [Moles/Vol]11 mmol/L 9 - 17 mmol/LBON WYANDOT MEMORIAL HOSPITALChloride [Moles/Vol]105 mmol/L98 - 107 mmol/LBON [facility] MEMORIAL HOSPITALCO2 [Moles/Vol]28 mmol/L20 - 31 mmol/LBON [facility] HOSPITALPotassium [Moles/Vol]4.8 mmol/L3.7 - 5.3 mmol/LBON WYANDOT MEMORIAL HOSPITALSodium [Moles/Vol]144 mmol/L135 - 144 mmol/LBON [facility] Glucose, Randomon 75-44-8656Mkjlclh [Mass/Vol]84 mg/dL70 - 99 mg/dLBON [facility]OT [facility]ORIAL HOSPITALNo Panel Informationon 66-70-2193WOP [facility] GLYCOHEMOGLOBIN A1Con 67-99-0620JTT RECOMMENDATIONSEE [facility] Warren HospitalComment on above:Result Comment: ADA RECOMMENDED LIMIT 4.0 - 6.0 ADA THERAPEUTIC TARGET < 7.0 ACTION SUGGESTED > 7.0Performed By: #### A1C #### [facility] [address] [address] [address] Sveta VelasquezGlucose [Mass/Vol]280 mg/dLShelby Memorial HospitalComment on above:Performed By: #### A1C #### [facility] [address] [address] [address] Sveta VelasquezHbA1c (Bld) [Mass fraction]11.4 %Critically high4.5-6.2[facility] Bing[facility] Md, Cancer CenterComment on above:Performed By: #### A1C #### [facility] [address] [address] [address] Sveta VelasquezLaboratory - Chemistry and Chemistry - challengeon 06-17-2022 Glucose [Mass/Vol]306 mg/iVRkhc36 - 105 mg/dLBON [facility] Work Phone: Microscopic Urinalysison 75-95-5504Cogzk UA2 TO 5 HYALINE Reference range defined for non-centrifuged specimen.BON [facility] MEMORIAL HOSPITALEpithelial Cells UA2 TO 5BON [facility]OT MEMORIAL HOSPITALRBC, UA10 TO 20BON [facility] HOSPITALComment on above:Reference range defined for non-centrifuged specimen.WBC, UA20 TO 50BON [facility] HEALTHNo Panel Informationon 68-27-7711JFU SECGALION COMMUNITY HOSPITALC Glucose Fingerstickon 67-20-8371Gugccftlotwitc and review of laboratory resultsAbnormalBON AV[facility] HEALTH CENTERPOCT glucoseon 52-38-1724Rgggzfytudbnsf and review of laboratory resultsNormalAUGUSTA HEALTH Work Phone: QC OK?yesBON [facility] Work Phone: Urinalysis with Reflex to Cultureon 06-17-2022 Bilirubin UrineNegativeNEGATIVEBON WY[facility]OT MEMORIAL HOSPITALColor, UADark Yellow AbnormalYellowBON W[facility]ANDOT MEMORIAL HOSPITALGlucose, Ur2+AbnormalNEGATIVEDICKENSON COMMUNITY HOSPITAL HEALTHInterpretation and review of laboratory resultsAbnormalDICKENSON COMMUNITY HOSPITAL HEALTHKetones Ql (U)NegativeNEGATIVEBON [facility]IAL HOSPITALLeukocyte esterase Test strip Ql (U)SMALLAbnormalNEGATIVEBON [facility] HEALTHNitrite, UrineNegativeNEGATIVEBON [facility] HEALTHpH, UA6.55 - 8BON [facility] HEALTHProtein, UANegativeNEGATIVEDICKENSON COMMUNITY HOSPITAL HEALTHSpecific [place], UA 1.146Xpoz2.005 - 1.03BON [facility]IAL HOSPITALTurbidity UAClearClearBON [facility] HEALTHUrine HgbNegativeNEGATIVEAUGUSTA HEALTHUrobilinogen, Urine NormalNormalBON [facility] HEALTHVaginitis DNA Probeon 19-11-6222QOZAQHK SPECIES, DNA PROBEPositiveAbnormalNEGATIVEAUGUSTA HEALTHComment on above:for Otf sp. Method of testing is a DNA probe intended for detection and identification of Otf species, Gardnerella vaginalis, and Trichomonas vaginalis nucleic acid in vaginal fluid specimens from patients with symptoms of vaginitis/vaginosis. GARDNERELLA VAGINALIS, DNA PROBENegativeNEGATIVEAUGUSTA HEALTHComment on above:for Gardnerella vaginalisInterpretation and review of laboratory resultsAbnormalAUGUSTA HEALTHSource.VAGINAL SWABBON WYANDOT MEMORIAL HOSPITALTrichomonas Vaginalis DNANegativeNEGATIVEAUGUSTA HEALTHComment on above:for Trichomonas VaginalisBON WYANDOT MEMORIAL HOSPITALCREATININEon 72-50-9190Pqknzwsimp [Mass/Vol]0.65 mg/dLNormal0.55-1.02The [facility] Comment on above:Performed By: #### VITAD #### [facility] [address] [place], [place] [address] Dr. Sveta BlankenshipGFR-AF PAKISTANI>60Normal>=60The [facility] CenterComment on above:Performed By: #### VITAD #### [facility] [address] [place], [place] [address] Dr[address] Bangura ChangEGFR-NON AF PAKISTANI>60Normal>=60The [facility] CenterComment on above:Performed By: #### VITAD #### [facility] [address] [place], [place] [address] Dr. Sveta VelasquezBRONSON [facility] BRAIN WO W CONon 26-17-4054WEU BRAIN WO W CONEXAMINATION: MRI BRAIN WO W CON HISTORY: Peripheral [...] Electronically authenticated by: ROCÍO REYES Date: 2022-05-23 10:26NoTrinity Health System East CampusI LAWRENCE WO CONon [id number] LAWRENCE PEÑA CONEXAMINATION: MRI LAWRENCE PEÑA CON HISTORY: Dizziness and giddiness COMPARISON: 01/30/2018 [...] Electronically authenticated by: ROCÍO REYES Date: 2022-05-23 09:15NormalMercy Health [facility] AUTO DIFFon 61-89-1248HSDX #0.0 103/ulNormal0.0-0.1[facility] Md, Cancer CenterComment on above:Performed By: #### MISC #### [facility] [address] [address] [address] Sveta VelasquezBasophils/100 WBC (Bld)0.4 %Normal0.2-2.0The [facility] Comment on above:Performed By: #### MISC #### [facility] [address] [place] [address] Dr. Sveta Nunez #0.1 103/ulNormal0.0-0.7The [facility] CenterComment on above: Performed By: #### MISC #### [facility] [address] [place] [address] Dr. Sveta Blankenshiposinophils/100 WBC (Bld)1.0 %Normal0.9-7.0The [facility] Comment on above:Performed By: #### MISC #### [facility] [address] [place] [address] Dr. Sveta Blankenshiprythrocyte distribution width (RBC) [Ratio]12.8 %Vfhcxv12.0-15.0 [facility], Cancer CenterComment on above:Performed By: #### MISC #### [facility] [address] [place] [address] Dr. Sveta VelasquezHematocrit (Bld) [Volume fraction]43.6 %Aehisv69.0-48.0[facility] Md, Cancer CenterComment on above:Performed By: #### MISC #### [facility] [address] [place] [address] Dr. Sveta VelasquezHemoglobin (Bld) [Mass/Vol]15.9 g/lAPwbptq63.0-16.0The [facility] CenterComment on above:Performed By: #### MISC #### [facility] [address] [place] [address] Dr. Sveta Neal #0.04 10e3/ulCritically high0.00-0.03The [facility] Comment on above:Performed By: #### MISC #### [facility] [address] [place] [address] Dr. Sveta Neal %0.4 %Normal0.0-0.5The [facility] CenterComment on above: Performed By: #### MISC #### [facility] [address] [place] [address] Dr. Sveta Coleman #2.5 103/ulNormal1.2-3.8The [facility] Medical CenterComment on above:Performed By: #### MISC #### [facility] [address] [place] [address] Dr. Sveta Kilgorehocytes/100 WBC (Bld)26.6 %Vwpgpz65.5-60.0The [facility] CenterComment on above:Performed By: #### MISC #### [facility] [address] [place] [address] Dr. Sveta Mcbride DIFF REQNONormalThe [facility] CenterComment on above: Performed By: #### MISC #### [facility] [address] [place] [address] Dr. Sveta Bhagat (RBC) [Entitic mass]33.0 dwHrczay51.7-34.0The [facility] CenterComment on above:Performed By: #### MISC #### [facility] [address] [place] [address] Dr. Sveta Myers (RBC) [Mass/Vol]36.5 g/dLCritically high29.9-35.2The [facility] CenterComment on above:Performed By: #### MISC #### [facility] [address] [place] [address] Dr. Sveta Willingham (RBC) [Entitic vol]90.5 eEZxpccx03.0-99.0The [facility] CenterComment on above:Performed By: #### MISC #### [facility] [address] [place] [address] Dr. Sveta Lopez #0.5 103/ulNormal0.3-0.8The [facility] CenterComment on above:Performed By: #### MISC #### [facility] [address] [place] [address] Dr. Sveta Hurtadoocytes/100 WBC (Bld)5.1 %Normal1.7-12.0The [facility] Comment on above:Performed By: #### MISC #### [facility] [address] [place] [address] Dr. Sveta Chadwick #6.2 103/ulNormal1.4-6.5The [facility] CenterComment on above:Performed By: #### MISC #### [facility] [address] [place] [address] Dr. Sveta Wooutrophils/100 WBC (Bld)66.5 %Obznlr42.0-75.0The [facility] CenterComment on above:Performed By: #### MISC #### [facility] [address] [place] [address] Dr. Sveta Faustinlet mean volume (Bld) [Entitic vol]10.3 fLNormal9.5-13.5The [facility] CenterComment on above:Performed By: #### MISC #### [facility] [address] [place] [address] Dr. Sveta VelasquezPLT214 103/zhWewaan649-399Uot [facility] CenterComment on above: Performed By: #### MISC #### [facility] [address] [place] [address] Dr. Sveta VelasquezRBC4.82 106/ulNormal4.20-5.40The [facility] CenterComment on above:Performed By: #### MISC #### [facility] [address] [place] [address] Dr. Sveta VelasquezWBC9.4 103/ulNormal4.0-11.0The [facility] CenterComment on above: Performed By: #### MISC #### [facility] [address] [place] [address] Dr. Sveta Fererr 58-96-0256ZZS [Mass/Vol]mg/LNormal<=1.0The [facility] CenterComment on above:Performed By: #### CRP #### [facility] [address] [place] [address] Dr. Sveta VelasquezXR CHEST 1 Von 30-80-9245QD CHEST 1 VEXAMINATION: XR CHEST 1 V HISTORY: Chest pain COMPARISON: Chest x-ray 08/14/2021 TECHNIQUE: Portable chest FINDINGS: The lung parenchyma is free of consolidation or infiltrate. No pneumothorax or pleural effusion. The cardiac, mediastinal and hilar contours are normal. The visualized osseous structures exhibit no gross abnormality. IMPRESSION: No acute cardiopulmonary abnormality. Electronically authenticated by: ROCÍO SHELLEY Date: 2022-05-12 17:18[facility] CAROTID ART BILon [id number] CAROTID ART BILEXAMINATION: US CAROTID ART PAU HISTORY: Peripheral vertigo [...] Electronically authenticated by: LA MANRIQUE Date: 2022-05-02 11:12[facility]MRI [facility] + w/ Righton [id number] Foot w/o + w/ Right CLINICAL HISTORY: [...] and signed by Rashel Guerrero on 04/25/2022 1247NoalNoKettering Health Main CampusAlbumin [Mass/volume] in Serum or PlasmaOrdered By: Marito Villalobos on 58-20-9713Ucyoazh [Mass/Vol]4.4 g/dL3.2-5.5FOhioHealth Doctors HospitalC-Reactive Proteinon 84-79-7101U-Reactive Protein0.6 mg/dLNormal0.0-1.0 [facility] HospitalComment on above:Result Comment: PERFORMED BY: [facility] [address] [place] [address] PATHOLOGIST CLARIFICATION OPERATOR JOSH MESSINA M.D.Performed By: #### CKMB, HS TROP, CK, CMP, CRP, PHENY #### [facility] [address] [place] [address] USACBC AUTO DIFFon 67-47-2319JDEN #0.1 103/ulNormal0.0-0.1The [facility] CenterComment on above:Performed By: #### MISC #### [facility] [address] [address] [address] Sveta VelasqeuzBasophils/100 WBC (Bld)0.6 %Normal0.2-2.0[facility] Comment on above:Performed By: #### MISC #### [facility] [address] [address] [address] Sveta Nunez #0.2 103/ulNormal0.0-0.7The [facility] CenterComment on above: Performed By: #### MISC #### [facility] [address] [address] [address] Sveta Blankenshiposinophils/100 WBC (Bld)1.9 %Normal0.9-7.0The [facility] Comment on above:Performed By: #### MISC #### [facility] [address] [address] [address] Sveta Blankenshiprythrocyte distribution width (RBC) [Ratio]12.7 %Gxocnh93.0-15.0 The [facility] CenterComment on above:Performed By: #### MISC #### [facility] [address] [address] [address] Sveta VelasquezHematocrit (Bld) [Volume fraction]45.0 %Nfmlku74.0-48.0The [facility] CenterComment on above:Performed By: #### MISC #### [facility] [address] [place] [address] Dr. Sveta VelasquezHemoglobin (Bld) [Mass/Vol]16.9 g/dLCritically high12.0-16.0The [facility] HospitalComment on above:Performed By: #### MISC #### [facility] [address] [place] [address] Dr. Sveta Neal #0.03 10e3/ulNormal0.00-0.03The [facility] CenterComment on above:Performed By: #### MISC #### [facility] [address] [place] [address] Dr. Sveta Neal %0.3 %Normal0.0-0.5The [facility] CenterComment on above: Performed By: #### MISC #### [facility] [address] [place] [address] Dr. Sveta Coleman #3.5 103/ulNormal1.2-3.8The [facility] CenterComment on above:Performed By: #### MISC #### [facility] [address] [place] [address] Dr. Sveta Kilgorehocytes/100 WBC (Bld)39.9 %Dabpwa99.5-60.0The [facility] CenterComment on above:Performed By: #### MISC #### [facility] [address] [place] [address] Dr. Sveta EdwardsUAL DIFF REQNONormalThe [facility] CenterComment on above: Performed By: #### MISC #### [facility] [address] [place] [address] Dr. Sveta Bhagat (RBC) [Entitic mass]33.7 kiKsnjiw62.7-34.0The [facility] CenterComment on above:Performed By: #### MISC #### [facility] [address] [place] [address] Dr. Sveta MyersHC (RBC) [Mass/Vol]37.5 g/dLCritically high29.9-35.2The [facility] CenterComment on above:Performed By: #### MISC #### [facility] [address] [place] [address] Dr. Sveta MyersV (RBC) [Entitic vol]89.6 qGGriosb29.0-99.0The [facility] CenterComment on above:Performed By: #### MISC #### [facility] [address] [place] [address] Dr. Sveta Lopez #0.6 103/ulNormal0.3-0.8The [facility] CenterComment on above:Performed By: #### MISC #### [facility] [address] [place] [address] Dr. Sveta Hurtadoocytes/100 WBC (Bld)6.3 %Normal1.7-12.0The [facility] Comment on above:Performed By: #### MISC #### [facility] [address] [place] [address] Dr. Sveta Chadwick #4.5 103/ulNormal1.4-6.5The [facility] CenterComment on above:Performed By: #### MISC #### [facility] [address] [place] [address] Dr. Sveta Wooutrophils/100 WBC (Bld)51.0 %Ldhdak45.0-75.0The [facility] CenterComment on above:Performed By: #### MISC #### [facility] [address] [place] [address] Dr. Sveta Faustinlet mean volume (Bld) [Entitic vol]10.2 fLNormal9.5-13.5The [facility] CenterComment on above:Performed By: #### MISC #### [facility] [address] [place] [address] Dr. Sveta VelasquezPLT211 103/yqXfoeya309-681Szw [facility] CenterComment on above: Performed By: #### MISC #### [facility] [address] [place], [place] [address] Dr. Sveta VelasquezRBC5.02 106/ulNormal4.20-5.40The [facility] CenterComment on above:Performed By: #### MISC #### [facility] [address] [place], [place] [address] Dr. Sveta VelasquezWBC8.9 103/ulNormal4.0-11.0The [facility] CenterComment on above: Performed By: #### MISC #### [facility] [address] [place], [place] [address] Dr. Sveta VelasquezCT HEAD WO CONon 58-20-6407WK HEAD WO CONINDICATION: 61 years old; Female. Vertigo. Dizziness. Hypertension. [...] midline shift or herniation. Normal candelario/white differentiation. VENTRICLES/EXTRA-AXIAL SPACES: Normal in size for patient's age. [...] Electronically authenticated by: LUZ HEREDIA Date: 2022-04-13 01:[address] [place], [place] [address]Comprehensive Metabolic Panelon 85-00-1265Gxfyirh [Mass/Vol]4.4 g/dLNormal3.2-5.5FOhioHealth Doctors HospitalComment on above:Performed By: #### CKMB, HS TROP, CK, CMP, CRP, PHENY #### [facility] [address] [place] [address] USAAlbumin/Globulin [Mass ratio]1.4 {ratio}NormalGuernsey Memorial HospitalComment on above:Performed By: #### CKMB, HS TROP, CK, CMP, CRP, PHENY #### [facility] [address] [place] [address] USAALP [Catalytic activity/Vol]97 U/CPjwc04-37VaefukyacGuernsey Memorial HospitalComment on above:Performed By: #### CKMB, HS TROP, CK, CMP, CRP, PHENY #### [place] [address] USAALT [Catalytic activity/Vol]26 U/HBictsi86-62DzmwoyiucGuernsey Memorial HospitalComment on above:Performed By: #### CKMB, HS TROP, CK, CMP, CRP, PHENY #### [facility] [address] [place] [address] USAAST [Catalytic activity/Vol]29 U/HCymgtb66-61BnrpiybwfGuernsey Memorial HospitalComment on above:Performed By: #### CKMB, HS TROP, CK, CMP, CRP, PHENY #### [place] [address] USABilirubin [Mass/Vol]0.7 mg/dLNormal0.3-1.2FOhioHealth Doctors HospitalComment on above:Performed By: #### CKMB, HS TROP, CK, CMP, CRP, PHENY #### [place] [address] USACalcium [Mass/Vol]10.3 mg/dLHigh8.2-10.2FOhioHealth Doctors HospitalComment on above:Performed By: #### CKMB, HS TROP, CK, CMP, CRP, PHENY #### [place] [address] USAChloride [Moles/Vol]92 mmol/XCiz24-202DfoyeffvjGuernsey Memorial HospitalComment on above:Performed By: #### CKMB, HS TROP, CK, CMP, CRP, PHENY #### [facility] [address] [place] [address] USACO2 [Moles/Vol]21.3 mmol/LLow22.0-30.0[facility] HospitalComment on above:Performed By: #### CKMB, HS TROP, CK, CMP, CRP, PHENY #### [facility] [address] [place] [address] USACreatinine [Mass/Vol]0.72 mg/dLNormal0.44-1.03[facility] HospitalComment on above:Performed By: #### CKMB, HS TROP, CK, CMP, CRP, PHENY #### [facility] [address] [place] [address] USAEstimated GFR ( Katerina> 60NoClermont County HospitalComment on above:Result Comment: GFR estimated reference range: According to KDOQI guidelines, <60 ml/min/1.73m2 is sufficient to diagnose a patient with chronic kidney disease.Performed By: #### CKMB, HS TROP, CK, CMP, CRP, PHENY #### [facility] [address] [place] [address] USAEstimated GFR (Non- Am> 60NoClermont County HospitalComment on above:Performed By: #### CKMB, HS TROP, CK, CMP, CRP, PHENY #### [facility] [address] [place] [address] USAGlobulin (S) [Mass/Vol]3.1 g/dLNoClermont County HospitalComment on above:Performed By: #### CKMB, HS TROP, CK, CMP, CRP, PHENY #### [facility] [address] [place] [address] USAGlucose [Mass/Vol]407 mg/nZOngn08-622JkdyawpajGuernsey Memorial HospitalComment on above:Result Comment: Random Glucose Reference Range is dependent on time and content of last meal. Glucose of more than 200 mg/dL in a nonstressed, ambulatory subject supports the diagnosis of Diabetes Mellitus. ADA recommended reference rangePerformed By: #### CKMB, HS TROP, CK, CMP, CRP, PHENY #### [facility] [address] [place] [address] USAPotassium [Moles/Vol]4.4 mmol/LNormal3.5-5.1FOhioHealth Doctors HospitalComment on above:Performed By: #### CKMB, HS TROP, CK, CMP, CRP, PHENY #### [facility] [address] [place] [address] USAProtein [Mass/Vol]7.5 g/dLNormal6.1-7.9[facility] HospitalComment on above:Performed By: #### CKMB, HS TROP, CK, CMP, CRP, PHENY #### [facility] [address] [place] [address] USASodium [Moles/Vol]134 mmol/PBqo484-717ZqxvbwiytGuernsey Memorial HospitalComment on above:Performed By: #### CKMB, HS TROP, CK, CMP, CRP, PHENY #### [facility] [address] [place] [address] USAUrea nitrogen [Mass/Vol]15 mg/dLNormal9-23[facility] HospitalComment on above:Performed By: #### CKMB, HS TROP, CK, CMP, CRP, PHENY #### [place] [address] USACreatine Kinaseon 89-73-4974TG [Catalytic activity/Vol]55 U/ASjdcip81-879OxeozygpdGuernsey Memorial HospitalComment on above:Performed By: #### CK, CKMB, HS TROP #### [facility] [address] [place] [address] USACK [Catalytic activity/Vol]23 U/VJhqwpo04-771UfatqojbrGuernsey Memorial HospitalComment on above:Performed By: #### CK, HS TROP, CKMB #### [facility] [address] [place] [address] USACK [Catalytic activity/Vol]81 U/SMrlbgp80-073UokwxuigkGuernsey Memorial HospitalComment on above:Performed By: #### CKMB, HS TROP, CK, CMP, CRP, PHENY #### [facility] [address] [place] [address] USACreatine kinase [Enzymatic activity/volume] in Serum or PlasmaOrdered By: Marito Villalobos on 66-61-7332IT [Catalytic activity/Vol]55 U/L 22-[facility] Memorial HospitalCreatinine Kinase MBon 63-65-5376FC.MB [Mass/Vol]1.1 ng/mLNormal0.6-6.3FOhioHealth Doctors HospitalComment on above:Performed By: #### CK, CKMB, HS TROP #### [facility] [address] [place] [address] USACKMB Relative Index2.0 %Normal0.00-2.[address] [place], [place] [address]Comment on above:Performed By: #### CK, CKMB, HS TROP #### [facility] [address] [place] [address] USACK.MB [Mass/Vol]1.1 ng/mLNormal0.6-6.3FOhioHealth Doctors HospitalComment on above:Performed By: #### CKMB, HS TROP, CK, CMP, CRP, PHENY #### [facility] [address] [place] [address] USACKMB Relative Index4.7 %High0.00-2.50[facility] HospitalComment on above:Performed By: #### CKMB, HS TROP, CK, CMP, CRP, PHENY #### [facility] [address] [place] [id number] USACK.MB [Mass/Vol]1.3 ng/mLNormal0.6-6.3FOhioHealth Doctors HospitalComment on above:Performed By: #### CKMB, HS TROP, CK, CMP, CRP, PHENY #### [facility] [address] [id number] USACKMB Relative Index1.6 %Normal0.00-2.50[facility] HospitalComment on above:Performed By: #### CKMB, HS TROP, CK, CMP, CRP, PHENY #### [facility] [address] [place] [address] USACreatinine and Glomerular filtration rate.predicted panel (S/P/Bld)Ordered By: Marito Villalobos on 23-89-2909Ocggpmjnuv [Mass/Vol]0.72 mg/dL 0.44-1.03[facility] Memorial HospitalEstimated glomerular filtration rate (GFR) non- AmericanOrdered By: Marito Villalobos on 85-55-5838KDU/1.73 sq M.predicted among non-blacks MDRD (S/P/Bld) [Vol rate/Area]> 60 mL/MinGuernsey Memorial HospitalGlobulin Calc (S) [Mass/Vol]Ordered By: Marito Villalobos on 69-08-6893Hvljmjwy (S) [Mass/Vol]3.1 g/dLGuernsey Memorial HospitalLAB TESTINGon 47-24-4214BZYV HEADERSEE SCANNED REPORT IN [facility] SystemComment on above:Performed By: #### MISC #### [facility] [address] [address] [address] Sveta Oneal FROM REF LAB04/13/2022[facility] on above:Performed By: #### MISC #### [facility] [address] [address] [address] Sveta Chapa TO REF LAB04/13/2022[facility] on above:Result Comment: TO FRPerformed By: #### MISC #### [facility] [address] [address] [address] Sveta Jackson HEADERSEE SCANNED REPORT IN [facility] Comment on above:Performed By: #### MISC #### [facility] [address] [address] [address] Sveta Oneal FROM REF LAB04/13/2022[facility] on above:Performed By: #### MISC #### [facility] [address] [address] [address] Sveta Chapa TO REF LAB04/13/2022[facility] on above:Result Comment: TO FRMCPerformed By: #### MISC #### [facility] [address] [address] [address] Sveta Jackson HEADERSEE SCANNED REPORT IN [facility] Comment on above:Performed By: #### MISC #### [facility] [address] [address] [address] Sveta Oneal FROM REF LAB04/13/2022[facility] on above:Performed By: #### MISC #### [facility] [address] [address] [address] Sveta Chapa TO REF LAB04/13/2022[facility] on above:Result Comment: TO FRMCPerformed By: #### MISC #### [facility] [address] [address] [address] Sveta Jackson HEADERSEE SCANNED REPORT IN [facility] Comment on above:Performed By: #### MISC #### [facility] [address] [address] [address] Sveta Oneal FROM REF LAB04/13/2022[facility] on above:Performed By: #### MISC #### [facility] [address] [address] [address] Sveta Chapa TO REF LAB04/13/2022[facility] on above:Result Comment: TO FRMCPerformed By: #### MISC #### [facility] [address] [address] [address] Sveta Jackson HEADERSEE SCANNED REPORT IN [facility] Comment on above:Performed By: #### VITAD #### [facility] [address] [address] [address] Sveta Oneal FROM REF LAB04/13/2022[facility] on above:Performed By: #### VITAD #### [facility] [address] [address] [address] Sveta Chapa TO REF LAB04/13/2022[facility] HospitalComment on above:Result Comment: [facility]EPerformed By: #### VITAD #### [facility] [address] [address] [address] Sveta Jackson HEADERSEE SCANNED REPORT IN [facility] Comment on above:Performed By: #### MISC #### [facility] [address] [address] [address] Sveta Oneal FROM REF LAB04/13/2022[facility] HospitalComment on above:Performed By: #### MISC #### [facility] [address] [address] [address] Sveta Chapa TO REF LAB04/13/2022[facility] HospitalCominsight surgical hospital on above:Result Comment: [facility] GUTHRIEPerformed By: #### MISC #### [facility] [address] [address] [address] Sveta Sommers Panel InformationOrdered By: Marito Villalobos on 04-13-2022 Estimated GFR ()> 60 mL/MinGuernsey Memorial Hospital Comment on above:GFR estimated reference range: According to KDOQI guidelines, <60 ml/min/1.73m2 is sufficient todiagnose a patient with chronic kidney disease.Pharmacy Creatinine Clearance (ChemN/AFOhioHealth Doctors Hospital Phenytoin (Dilantin)on 91-72-0423Hkarsjjtv [Mass/Vol]8.2 ug/mLLow10.0-20.0 [facility] HospitalComment on above:Order Comment: Date of last dose?: 20220412 Time of last dose?: 399Result Comment: Last dose: - PERFORMED BY: [place] [address] PATHOLOGIST CLARIFICATION OPERATOR JOSH MESSINA M.D.Performed By: #### CKMB, HS TROP, CK, CMP, CRP, PHENY #### [place] [address] USAProtein [Mass/volume] in Serum or PlasmaOrdered By: Marito Villalobos on 68-78-9487Cdjtgim [Mass/Vol]7.5 g/dL6.1-7.9[facility] CenterED RATE WESTERGRENon 62-02-6516MZJ RATE17 mm/hrNormal<=30The [facility] CenterComment on above:Performed By: #### SEDR #### [facility] [address] [address] [address] Sveta Alexander or plasma C reactive protein measurement (mass/volume) Ordered By: Marito Villalobos on 47-20-1629GAH [Mass/Vol]0.6 mg/dL0.0-1.0[facility] Medical Centererum or plasma alanine aminotransferase measurement without P-5'-P (enzymatic activiOrdered By: Marito Villalobos on 88-89-8585WXU No additional P-5'-P [Catalytic activity/Vol]26 U/L07-77RqfpfraihDayton VA Medical Centererum or plasma albumin/globulin mass ratioOrdered By: Marito Villalobos on 71-34-2675Ibjzbat/Globulin [Mass ratio]1.4 {ratio}[facility] Centererum or plasma alkaline phosphatase measurement (enzymatic activity/volume)Ordered By: Marito Villalobos on 68-34-4334OCQ [Catalytic activity/Vol]97 U/W43-74CavcpmforDayton VA Medical Centererum or plasma aspartate aminotransferase measurement (enzymatic activity/volume)Ordered By: Marito Villalobos on 46-45-2130THT [Catalytic activity/Vol]29 U/B34-26GepfhkhriDayton VA Medical Centererum or plasma calcium measurement (mass/volume)Ordered By: Marito Villalobos on 86-76-3663Gabpyre [Mass/Vol]10.3 mg/dL8.2-10.2FMercer County Community Hospitalerum or plasma chloride measurement (moles/volume) Ordered By: Marito Villalobos on 37-99-7702Xlgbtgok [Moles/Vol]92 mmol/L95-114 [facility] Centererum or plasma creatine kinase MB (CKMB)/total creatine kinase (CK) ratio by calculaOrdered By: Marito Villalobos on 04-13-2022 CK.MB Calc [Catalytic fraction]2.0 %0.00-2.50[facility] Serum or plasma creatine kinase MB measurement (mass/volume)Ordered By: Marito Villalobos on 23-19-9438LY.MB [Mass/Vol]1.1 ng/mL0.6-6.3FMercer County Community Hospitalerum or plasma glucose measurement (mass/volume)Ordered By: Marito Villalobos on 90-26-1625Aytymkr [Mass/Vol]407 mg/kY00-168SutzxyatqGuernsey Memorial Hospital Comment on above:ADA recommended reference range Random Glucose Reference Range is dependent on time and content of last meal. Glucose of more than 200 mg/dL in a nonstressed, ambulatory subject supports the diagnosis of Diabetes Mellitus.Serum or plasma phenytoin measurement (mass/volume)Ordered By: Marito Villalobos on 21-13-8168Cfkaoweha [Mass/Vol]8.2 ug/mL 10.0-20.0Guernsey Memorial HospitalComment on above:Last dose: -Serum or plasma potassium measurement (moles/volume)Ordered By: Marito Villalobos on 19-86-6024Vczqxskwx [Moles/Vol]4.4 mmol/L3.5-5.1FMercer County Community Hospitalerum or plasma sodium measurement (moles/volume)Ordered By: Marito Villalobos on 27-90-6799Dgjwdr [Moles/Vol]134 mmol/Z083-194TntfonbbcDayton VA Medical Centererum or plasma total bilirubin measurement (mass/volume)Ordered By: Marito Villalobos on 79-43-6520Nkslfpord [Mass/Vol]0.7 mg/dL0.3-1.2FMercer County Community Hospitalerum or plasma total carbon dioxide measurement (moles/volume) Ordered By: Marito Villalobos on 08-76-4436BK6 [Moles/Vol]21.3 mmol/L22.0-30.0 Dayton VA Medical Centererum or plasma urea nitrogen measurement (mass/volume)Ordered By: Marito Villalobos on 67-30-4723Boim nitrogen [Mass/Vol]15 mg/dL9-23Guernsey Memorial HospitalTroponin I High Sensitivityon 31-04-0691Xjrggqse I High Sensitivity< 5Kzmjwu9-71CfktqbzqcGuernsey Memorial HospitalComment on above:Result Comment: PERFORMED BY: [facility] [address] [place] [address] PATHOLOGIST CLARIFICATION OPERATOR JOSH MESSINA M.D.Performed By: #### CK, CKMB, HS TROP #### [facility] [address] [place] [address] USATroponin I High Sensitivity3 pg/mLNormal058 [address] StreetComment on above:Result Comment: PERFORMED BY: [facility] [address] [place] [address] PATHOLOGIST CLARIFICATION OPERATOR JOSH MESSINA M.D.Performed By: #### CKMB, HS TROP, CK, CMP, CRP, PHENY #### [facility] [address] [place] [id number] USATroponin I High Sensitivity3 pg/mLNormal058 [address] StreetComment on above:Result Comment: PERFORMED BY: [place] [id number] PATHOLOGIST CLARIFICATION OPERATOR JOSH MESSINA M.D.Performed By: #### CKMB, HS TROP, CK, CMP, CRP, PHENY #### [facility] [address] [place] [address] USATroponin I.cardiac [Mass/volume] in Serum or Plasma by High sensitivity methodOrdered By: Marito Villalobos on 63-29-0078Ymspelsg I.cardiac High sensitivity method [Mass/Vol]< 3 pg/mL[address] Ambulatory Visit Summaryon 09-91-5330Gdbbvzojjg Visit Summary KRISTIN NULL ANN :1960 Visit Date:03/29/2022 Ambulatory Visit Instructions Your Care Team Attending Physician - GLADYS NAZARIO, Luz Juarez Primary Care Physician - Niki Pearson MD This Is Your Medications List Contact prescribing physician if questions or concerns clonazepam (ClonazePAM 0.5 mg Tab) escitalopram (Lexapro 10 mg Tab) fluticasone/umeclidinium/vilanterol (Trelegy Ellipta 100 mcg-62.5 mcg-25 mcg inhalation powder) gabapentin (gabapentin 800 mg Tab) mometasone nasal (Nasonex 50 mcg/inh [place]) phenytoin (Dilantin 100 mg Cap-ER) phenytoin (Dilantin [...] vilanterol (Trelegy Ellipta 100 mcg-62.5 mcg-25 mcg inhalationpowder) 1 Puffs Inhalation Every day Contact prescribing physician if questions or concerns Unchanged gabapentin (gabapentin 800 mg Tab) 1 Tablets By Mouth 4 times a day Contact prescribing physician if questions or concerns Unchanged mometasone nasal (Nasonex 50 mcg/ inh [place]) 1 Sprays Nasal Inhalation 2 times a day as needed for for allergy symptoms in each nostril Contact prescribing physician if questions or concerns Unchanged phenytoin (Dilantin 100 mg Cap-ER) 3 Capsules By Mouth Once a day (at bedtime) Contact prescribing physician if questions or concerns Unchanged phenytoin (Dilantin 30 mg oral capsule, extended release) as directed Contact prescribingphysician if questions or concerns Unchanged trazodone (traZODONE [...] apnea syndrome Parathyroid adenoma Temporal lobe epilepsy NormalFisher Greater Baltimore Medical CenterPhysician Referralon 03-21-2022 Physician [id number]:127Normal Cheung [facility] Medical CenterARS-CoV-2on 61-31-9913KBOR-CoV-2NormalMercy Prosser Memorial HospitalComment on above:Performed By: #### COVID #### [facility] [address] [place], [place] [id number] Donor Relations Manager: Chavez Rivera MD [employer] [facility] [place], [place] [id number] Donor Relations Manager: CARMEN TysonCoV-2Not DetectedNormalNOTDETMercMultiCare HealthComment on above:Result Comment: The specimen is NEGATIVE for SARS-CoV-2, the novel coronavirus associated with COVID-19. A negative result does not rule out COVID-19. Mariah SARS-CoV-2 for use on the Mariah [employer]8800 [employer] is a real-time RT-PCR test intended [...] this assay. Fact sheet for Healthcare Providers: https://www.fda.gov/media/368830/download Fact sheet for Patients: https://www.fda.gov/media/743016/download METHODOLOGY: RT-PCRPerformed By: #### COVID #### [facility] [address] [place] [address] Donor Relations Manager: Chavez Rivera MD [employer] [address] [place], [place] [phone] Donor Relations Manager: CARMEN TysonCoV-2on 41-07-7420TLSZ-CoV-2 Source .NASOPHARYNGEAL SWABNormalMercy Prosser Memorial HospitalComment on above:Performed By: #### COVID #### [facility] [address] [place], [place] [phone] Donor Relations Manager: Chavez Rivera MD [facility] [employer] [address] [place] [address] Donor Relations Manager: Kenyon Hewitt MD Vital Signs Date TimeVital SignValuePerforming UigyttspjYrblpmgj53-15-1495 15:23-0400Body dhmirm003.4 cmFlorin Burgos MD Work Phone: 1(376)[address] [place], [place] 7129507-23-2025 15:23-0400Body mass index (BMI) [Ratio]37.11 kg/q7ZklldycFlorin Burgos MD Work Phone: 1(571)[address] [place], [place] 7129507-23-2025 15:23-0400Body gvuqoh62.18 kgFlorin Burgos MD Work Phone: 1(462)[address] [place], [place] 7129507-23-2025 15:23-0400Diastolic blood gggtoopb72 mm[Hg]Florin Burgos MD Work Phone: 1(701)[address] [place], [place] 7129507-23-2025 15:23-0400Heart rate84 /min Florin Burgos MD Work Phone: 1(798)[facility] [place] [address]-23-2025 15:23-0400Systolic blood uuqqooqx505 mm[Hg]Florin Burgos MD Work Phone: 1(585)[address] [place], [place] 7129511-14-2024 15:07-0500Body mass index (BMI) [Ratio]37.11 kg/c9UngxmhgFlorin Burgos MD Work Phone: 1(224)[address]11-14-2024 15:07-0500Body slfuvs57.18 kgFlorin Burgos MD Work Phone: 1(440)[address] [place], [place] 7129511-14-2024 15:07-0500Diastolic blood dcfvkjbu99 mm[Hg]Florin Burgos MD Work Phone: 1(608)[address] [place] [address]-14-2024 15:07-0500Heart rate75 /min Florin Burgos MD Work Phone: 1(065)[address] [place] [address]-14-2024 15:07-0500Systolic blood ebgybxtm183 mm[Hg]Florin Burgos MD Work Phone: 1(207)[address] [place], [place] 7129508-26-2024 15:42-0400Diastolic blood usvjrnvi92 mm[Hg]Florin Burgos MD Work Phone: 1(942)[address] [place] [address]-26-2024 15:42-0400Systolic blood tabuahcc686 mm[Hg]Florin Burgos MD Work Phone: 1(111)[address] [place], [place] 7129502-15-2024 15:49-0500Body mass index (BMI) [Ratio]37.11 kg/u2QwcpoliFlorin Burgos MD Work Phone: 1(012)[address] [place], [place] 7129502-15-2024 15:49-0500Body gevvne18.18 kgFlorin Burgos MD Work Phone: 1(511)[address] [place], [place] 7129502-15-2024 15:49-0500Diastolic blood mwwcxfte13 mm[Hg]Florin Burgos MD Work Phone: 1(672)[address] [place] [address]-15-2024 15:49-0500Systolic blood xbqmvkib022 mm[Hg]Florin Burgos MD Work Phone: 1(164)[address] [place], [place] 7129512-28-2023 13:45-0500Body temperature 97.7 [degF]Endy Cruz MD Work Phone: bon [facility]12-28-2023 13:45-0500Diastolic blood ysxatgjq67 mm[Hg]Endy Cruz MD Work Phone: bon [facility]12-28-2023 13:45-0500Heart rate77 /minEndy Cruz MD Work Phone: [phone]- [facility]12-28-2023 13:45-0500 Respiratory rate16 /minThomas Anthony NAZARIO Work Phone: [facility]12-28-2023 13:45-5151AfT5% (BldA) [Mass fraction]93 %Endy Cruz MD Work Phone: [facility]12-28-2023 13:45-0500Systolic blood ezwnrdiv775 mm[Hg]Endy Cruz MD Work Phone: [facility]12-28-2023 11:03-0500Body qvicyv737.4 cmTmizell memorial hospitalshmuel Cruz MD Work Phone: [facility]12-28-2023 11:03-0500Body mass index (BMI) [Ratio]37.11 kg/p6Bwblwh Anthony NAZARIO Work Phone: [facility]12-28-2023 11:03-0500Body nqgwju79.18 kgThomas Anthony NAZARIO Work Phone: [facility]12-20-2022 12:20-0500 Respiratory rate18 /minEndy Cruz MD Work Phone: [facility]12-20-2022 11:24-0500Body tkagkpvrhkg57.01 [degF]Endy Cruz MD Work Phone: [facility]12-20-2022 11:24-0500Diastolic blood prmedfbs19 mm[Hg]Endy Cruz MD Work Phone: [facility]12-20-2022 11:24-0500Heart rate88 /minEndy Cruz MD Work Phone: [facility]12-20-2022 11:24-2723IcH1% (BldA) [Mass fraction]93 %Endy Cruz MD Work Phone: [facility]12-20-2022 11:24-0500Systolic blood xuohjlhb014 mm[Hg]Endy Cruz MD Work Phone: [facility]12-19-2022 12:15-0500Body eqvazj109.4 Michael Cruz MD Work Phone: [facility]12-19-2022 12:15-0500Body mass index (BMI) [Ratio]33.98 kg/d9Bnqmae Anthony NAZAROI Work Phone: [facility]12-19-2022 12:15-0500Body .93 kgThomas Anthony NAZARIO Work Phone: [facility]10-26-2022 09:10-0400 Respiratory rate17 /minEndy Cruz MD Work Phone: [facility]10-26-2022 08:30-0400Body hlppimpsfkc52.71 [degF]Endy Cruz MD Work Phone: [facility]10-26-2022 08:30-0400Diastolic blood mpszydfn37 mm[Hg]Endy Cruz MD Work Phone: [facility]10-26-2022 08:30-0400Heart kstz599 /minThomas Anthony NAZARIO Work Phone: [facility]10-26-2022 08:30-5659AtZ4% (BldA) [Mass fraction]96 %Endy Cruz MD Work Phone: [facility]10-26-2022 08:30-0400Systolic blood izxihxvo407 mm[Hg]Endy Cruz MD Work Phone: [facility]10-24-2022 08:03-0400Body dxqjsa925.4 Michael Cruz MD Work Phone: [facility]10-24-2022 08:03-0400Body mass index (BMI) [Ratio]32.03 kg/i2Jzftbu Anthony NAZARIO Work Phone: [facility]10-24-2022 08:03-0400Body qmzzon49.39 kgEndy Cruz MD Work Phone: [facility]10-19-2022 10:16-0400Body llutrb576.[address] [place], [place] 5871310-19-2022 10:16-0400Body mass index (BMI) [Ratio]32.03 kg/m2Stvz [address] [place], [place] 5871310-19-2022 10:16-0400Body gfpfzszinlw56.5 [degF]Stvz [address] [place], [place] 5871310-19-2022 10:16-0400Body uwcppc06.[address] [place], [place] 5871310-19-2022 10:16-0400Diastolic blood cfihkoto98 mm[Hg]Stvz [address] [place], [place] 5871310-19-2022 10:16-0400Heart rate 78 /minStvz [address] [place], [place] 5871310-19-2022 10:16-0400Respiratory rate16 /minStvz [address] [place], [place] 5871310-19-2022 10:16-9618QtD0% (BldA) [Mass fraction]96 %[address]10-19-2022 10:16-0400Systolic blood oktqxbss989 mm[Hg]Stvz [address] [place], [place] 587[address]08-08-2022 17:29-0400Diastolic blood ccsvasqo29 mm[Hg]Seamus Handy [facility]08-08-2022 17:29-0400Heart rate97 /minAaron Oruzair [facility]08-08-2022 17:29-0400Respiratory rate18 /minAaron Oruzair [facility] 06-17-2022 17:29-8715JsG0% (BldA) [Mass fraction]97 %Seamus Handy [facility]08-08-2022 17:29-0400Systolic blood mm[Hg][facility]-08-2022 16:42-0400Body xbvamo838.4 cmAaron Orqvist [facility]08-08-2022 16:42-0400Body mass index (BMI) [Ratio] 31.25 kg/z3NyryeSeamus Handy [facility]08-08-2022 16:42-0400Body kxfespnsmnt55.6 [degF]Seamus Hand[facility]08-08-2022 16:42-0400Body igoifk05.58 kgSeamus Handy [facility]05-20-2022 13:41-0400Blood Pressure LocationMichael NILL General Surgery [place] 05-20-2022 13:41-0400Diastolic blood pdodabok05 mm[Hg] Luz NILL General Surgery [place] 05-20-2022 13:41-0400Heart rate84 /minMichael NILL General Surgery [place] 05-20-2022 13:41-0400Respiratory rate16 /minMichael NILL General Surgery [place] 05-20-2022 13:41-0400Systolic blood xdijoson663 mm[Hg] Luz NILL General Surgery [place] 04-05-2021 13:40-0400Body Kuflluahkqg65.3 [degF]Endy [employer] Work Phone: 1(722) 204-356904-05-2021 13:40-0400BP Lsybvtmdn77 mm[Hg]Endy [employer] Work Phone: 1(792) 102-628704-05-2021 13:40-0400BP Kcwzsmsq076 mm[Hg]Endy WeditGlenbeigh HospitalOnevest Work Phone: 1(106) 975-493704-05-2021 13:40-0400Pulse (Heart Rate)95 /minThomas Boom FinancialInStore Audio NetworkGlenbeigh HospitalOnevest Work Phone: 1(668) 688-881204-05-2021 13:40-0400Pulse Qcbpyqzn73 %Endy WeditGlenbeigh HospitalOnevest Work Phone: 1(656) 434-369104-05-2021 13:40-0400Respiratory Rate14 /minThomas WeditGlenbeigh HospitalOnevest Work Phone: 1(655) 882-727004-05-2021 09:46-0400BMI (Body Mass Index)37.3 kg/m2 Endy WeditGlenbeigh HospitalOnevest Work Phone: 1(718) 900-653704-05-2021 09:46-0400Body khhunu80.64 kgThomas WeditGlenbeigh HospitalOnevest Work Phone: 1(252) 975-976104-05-2021 09:46-7061Jzepop796.4 cmThomas [employer]In[employer] [facility] [employer] Work Phone: Encounters Encounter DateEncounter TypeCare ProviderFacilityStart: 10-86-8629bbzvzidpzsPWNBCleveland Clinic Hillcrest Hospitaltart: 09-12-2025 End: 04-98-1481Hopoammty encounterFlorin Burgos MD Work Phone: noms [place] NeurologyStart: 81-70-4890zhdeaihdbhKDUPCleveland Clinic Hillcrest Hospitaltart: 68-76-5957piyfvxibrvSHMICleveland Clinic Hillcrest Hospitaltart: 46-44-0148lkpspklrvaHHDBCleveland Clinic Hillcrest Hospitaltart: 55-49-4249cqglpdfxhdITGVCleveland Clinic Hillcrest Hospitaltart: 06-01-2025 End: 93-29-8901Aapdnm outpatient visit 25 minutesFlorin Burgos MD Work Phone: noms SWS NEURComment on above:Cervical radiculopathy (Primary Dx); Focal epilepsy (HCC); Seizure (HCC); Generalized seizure disorder (HCC); Obstructive sleep apnea syndromeStart: 06-01-2025 End: 11-12-3949sragjpumwxBDTWRPO W BAUERNot AvailableStart: 06-01-2025 End: 14-03-3462Fktpfb Jonah Burgos MD Work Phone: noms BM NEUROLOGYStart: 06-01-2025 End: 65-32-7513Wqwjol Jonah Burgos MD Work Phone: noms BM NEUROLOGYStart: 00-11-8150cqjjngiadwNAUZCleveland Clinic Hillcrest Hospitaltart: 05-04-2025 End: 29-56-1700Bzqaechcg encounterGretchen Sal NP Work Phone: noms [facility] NEURO 210Start: 04-54-3549iecshpfdneDMMQCleveland Clinic Hillcrest Hospitaltart: 15-71-0585udwkitkakhXENTCleveland Clinic Hillcrest Hospitaltart: 03-02-2025 End: 97-04-2144zmzauvfmkyCVEODYD W BAUERNot AvailableStart: 03-02-2025 End: 63-63-0175Lxluse outpatient visit 25 minutesFlorin Burgos MD Work Phone: noms SWS NEURComment on above:Chronic insomnia; Focal epilepsy (CMS/HCC); Generalized seizure disorder (CMS/HCC); Seizure (CMS/HCC)Start: 03-02-2025 End: 26-86-6283Iigcqjleslie Burgos MD Work Phone: noms NEUROLOGYStart: 03-02-2025 End: 56-17-6977Pygvdnleslie Burgos MD Work Phone: noms BM NEUROLOGYStart: 19-09-0344lgprexbtskCJTGCleveland Clinic Hillcrest Hospitaltart: 33-11-1543phvuvqktbwDNSW JoseProtestant Deaconess Hospitaltart: 57-05-5800mdihvjtnjdZQKTCleveland Clinic Hillcrest Hospitaltart: 53-64-9275xqfumsrnobZAKICleveland Clinic Hillcrest Hospitaltart: 12-02-2024 End: 16-99-3177rkihxrtkkgLTOZEUV W BAUERNot AvailableStart: 12-02-2024 End: 15-40-3962Auuhxs outpatient visit 25 minutesFlorin Burgos MD Work Phone: noms SWS NEURComment on above:Cervical radiculopathy (Primary Dx); Complex partial seizure with impairment of consciousness (CMS/HCC); Obstructive sleep apnea syndrome; Seizure (CMS/HCC); Temporal lobe epilepsy (CMS/HCC)Start: 12-02-2024 End: 07-90-1421Iekqau Jonah Burgos MD Work Phone: noms NEUROLOGYStart: 12-02-2024 End: 75-96-1223Xfastieduardo Burgos MD Work Phone: noms NEUROLOGYStart: 13-17-8570dadafnmgdxKFSFCleveland Clinic Hillcrest Hospitaltart: 76-47-1366dwgglvejzvQNSDCleveland Clinic Hillcrest Hospitaltart: 09-23-2024 End: 71-85-9731Kxfdpxna SupportFlorin Burgos MD Work Phone: noms SWS NEURComment on above:Other nerve root and plexus disorders (Primary Dx); Chronic insomnia; 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; Focal epilepsy (CMS/HCC); Trochanteric bursitis, right hipStart: 09-23-2024 End: 62-43-6883Fzrfpfeduardo Burgos MD Work Phone: noms NEUROLOGYStart: 09-23-2024 End: 50-01-6750Lzmvjveduardo Burgos MD Work Phone: noms NEUROLOGYStart: 09-17-2024 End: 68-15-0272Mcjfvljce encounterFlorin Burgos MD Work Phone: noms SWS NEURStart: 07-05-2024 End: 21-28-7112Swehkq outpatient visit 25 minutesFlorin Burgos MD Work Phone: noms SWS NEURComment on above:Focal epilepsy (CMS/HCC) (Primary Dx); Seizure disorder (CMS/HCC); Acute carpal tunnel syndrome of right wrist; Cervical radiculopathy; Complex partial seizure with impairment of consciousness (CMS/HCC)Start: 07-05-2024 End: 95-48-8523zolgxggzlcXTWNHTD W BAUERNot AvailableStart: 06-25-2024 End: 55-91-2879Pxzsrfwlc encounterStejyothi DIETRICHM Work Phone: noms PODIATRYComment on above:Advice OnlyStart: 06-15-2024 End: 76-06-4409lrqgfaalsdRFKBAV A RUSHERNot AvailableStart: 02-08-2024 End: 21-94-2437Whkqizwuo department patient visitProMedica Memorial Hospitaltart: 12-25-2023 End: 45-45-2606Rsxwwg outpatient visit 25 minutesFlorin Burgos MD Work Phone: noms SWS NEURComment on above:Acute carpal tunnel syndrome of right wrist (Primary Dx); Seizure (CMS/HCC); Allodynia; Cervical radiculopathy; Complex partial seizure with impairment of consciousness (CMS/HCC)Start: 19-64-5630Gttsh abstractingFlorin Burgos MD Work Phone: noms [facility] NEURO 210Start: 11-06-2023 End: 96-30-8500lgsvwxthqkBOMMMWInez [facility] Start: 11-06-2023 End: 56-74-4073Wmwjyypqok hospital visit by Salazar Cruz MD Work Phone: mhpb [place] ORComment on above:Acute postoperative pain (Primary Dx)Start: 08-18-2023 End: 04-05-6894rjoztzpgzzRYMYIN G [facility] Start: 08-05-2023 End: 03-44-3222botiswnhyhGUECXC Seng [facility] Start: 08-05-2023 End: 19-41-5143Flkuffwzu for other preprocedural examinationENDY CRUZ [facility]: 03-11-2023 End: 54-11-8121ezglxerswoUB NIKI HOY .Facility:B0Gdfxk: 03-07-2023 End: 49-13-9330ksqywaxrfyGZ NIKI HOY .Facility:Z8Xogir: 11-08-2022 End: 90-57-1747njhskpvggvAR NIKI HOChris .Facility:W3Uoert: 10-28-2022 End: 97-53-7198Wccklllyce and management of inpatientEndy Seng Cruz MD Work Phone: stvz 2C Ortho/Med SurgComment on above:Cervical stenosis of spinal canal (Primary Dx); S/P cervical spinal fusionStart: 09-02-2022 End: 66-03-1024Ccewpnavdx hospital visit by physicianEndy Cruz MD Work Phone: stvz 2C Ortho/Med SurgComment on above:Post-op pain (Primary Dx)Start: 08-28-2022 End: 62-59-9871Vlmzclhnov hospital visit by physicianStsusana [facility] 1STVZ Pre-Admit TestingStart: 06-22-2022 End: 52-96-0624cbkzlzzcgoZL DOUGLAS HOY .Facility:Z0Mgnrn: 06-17-2022 End: 89-86-3681Etppeinkp department patient visitSeamus Handy [facility] EDComment on above:Yeast infection involving the vagina and surrounding area (Primary Dx)Start: 05-23-2022 End: 69-16-3904vumxhbdzjuCO ROCÍO Martins WESTFacility:T1Bpyyl: 05-12-2022 End: 58-52-3574yzotmxgdbrQI CHAVEZ [place] REINECKFacility:K9Xkqwl: 05-01-2022 End: 60-14-3261hrglgddeorWI NIKI HOY .Facility:M0Pakcp: 04-22-2022 End: 80-99-8198cnzrkuqvtsFX NIKI HOY .Facility:A4Vigoa: 04-13-2022 End: 04-08-9115Dnmfdxk encounter procedureMD Marito Villalobos Work Phone: [facility] Start: 04-13-2022 End: 23-86-2917igqxwpihqvDG NIKI HOY .Facility:J6Uxxls: 03-29-2022 End: 73-22-1513Nwtomay encounter procedureMichael R NILL General Surgery Nill/Said [place] Start: 03-20-2022 End: 44-04-3816ahlcjmxxhgFD NIKI HOY .Facility:K9Crdqm: 02-12-2021 End: 54-57-3898Hxopxxmdwx hospital visit by physicianEndy Cruz Work Phone: stVI ORComment on above:Post-op pain (Primary Dx) Start: 02-08-2021 End: 65-14-5562Dyvlvnw encounter procedureENDY ReyesSkagit Valley Hospitaltart: 02-08-2021 End: 69-26-8471Elchlzlksj hospital visit by Kenyatta Covid Screening ScheduleSTAZ Covid ScreeningComment on above:Preop testing (Primary Dx) Procedures DateProcedureProcedure DetailPerforming ClinicianStart: 28-46-5379Ocpgvrn blood reagent Rudy Cruz MD Work Phone: Start: 83-99-7602Rbvfrxk blood reagent Rudy Crzu MD Work Phone: Start: 64-63-2901Odoyzbs blood reagent Rudy Cruz MD Work Phone: Start: 40-82-5252PRFJT METABOLIC PANEL W/ REFLEX TO MG FOR LOW KNicholas Cash DO Work Phone: Start: 55-84-7681Ocmcbfp blood reagent stripEndy Seng Anthony NAZARIO Work Phone: Start: 73-35-1644Whlbuvy blood reagent stripEndy [place] Anthony NAZARIO Work Phone: Start: 53-80-5700Kdwxqmtrpb bloodAnthony Balbir DO Work Phone: Start: 06-81-4150Hfsmfls blood reagent stripEndy [place] Anthony NAZARIO Work Phone: Start: 23-85-4012Orzujbjzwlw during operationEndy [place] Anthony NAZARIO Work Phone: Start: 22-03-0111Dmoofkv blood reagent stripEndy [place] Anthony NAZARIO Work Phone: Start: 52-41-3452Anrtxgm blood reagent Lindydudley [place] Anthony NAZARIO Work Phone: Start: 90-48-0653Kaalsla blood reagent stripKeshadudley [place] Anthony NAZARIO Work Phone: Start: 73-94-3868Yb thorax w/contrast materialJose Manuel Kearney MD Work Phone: Start: 98-08-8820Xzqnpwjerb microscopic onlyJose Manuel Kearney MD Work Phone: Start: 88-67-4939Zrclq dip stick/tablet rgnt auto w/o microscopyJose Manuel Kearney MD Work Phone: Start: 43-96-4923Ulhpplv blood reagent stripKeshadudley Seng Cruz MD Work Phone: Start: 75-52-6289Bpwxlsr blood reagent Lindydudley Seng Cruz MD Work Phone: Start: 09-03-2022 End: 53-87-9861Zmyra count complete auto&auto difrntl wbcEndy Cruz MD Work Phone: Start: 96-86-8620Awmungekue exam chest single view Jose Manuel Kearney MD Work Phone: Start: 83-80-9483MQGQJMAW REJECTIONEndy Cruz MD Work Phone: Start: 20-25-1321Zwwojpq blood reagent stripThdudley Ellsworth Anthony NAZARIO Work Phone: Start: 96-45-0842Xkwvfjs blood reagent stripThdudley [place] Anthony NAZARIO Work Phone: Start: 22-26-9927KONXQQEAGNR CARE EVALUATION ONLYAmy Carvajal DO Work Phone: Start: 51-03-0536Ursvx spine 1 view specify level Endy Segn Anthony NAZARIO Work Phone: Start: 09-02-2022 End: 66-91-5165Rwtou spine 1 view specify levelThdudley Ellsworth Anthony NAZARIO Work Phone: Start: 09-02-2022 End: 42-45-3647RDQICQML LAMINECTOMY FUSION ANTERIORThdudley Ellsworth Anthony NAZARIO Work Phone: Start: 36-94-2556Ijtwpkmvona panelMiblaine Howell MD Work Phone: Start: 32-90-1233Xmm routine ecg w/least 12 lds i&r onlyMiblaine Howell MD Work Phone: Start: 98-57-1957Mfzts dip stick/tablet rgnt auto w/o microscopyShanon Iqbal Ty DO Work Phone: Start: 06-17-2022 End: 50-43-0141Bqqg bld gluc mntr dev cleared fda spec home useAlexajayden Crawford DO Work Phone: Start: 06-17-2022 End: 80-36-3485Tyydv otf species direct probe tqAlexajayden Crawford DO Work Phone: Start: 38-72-2593Dokrppcmhct of kneeMichael NILL Start: 87-33-9358Lshapqdmhxo of kneeMichael NILL Start: 34-57-6964Kvuidut of trigger fingerMichael NILL Start: 86-38-5336Gqkbnyxizbt of kneeMichael NILL Start: 88-52-9384TokanxyuosqfzlvRycezdp NILL Start: 06-04-1943PqgiwvnqkeoptumaiUsrhdos NILL Start: 54-64-6388Hlnbubzg impingement of right shoulder (disorder)Luz NILL Start: 63-07-2316Nbiivtqy of cystMichael NILL Comment on above:right breast x 2Decompression of median nerveMichael NILL Endoscopy of vaginaMichael NILL Excision of cystMichael NILL Comment on above:right dorsal footHistory of spinal fusionMichael NILL Ligation of fallopian tubeMichael NILL Lobectomy of brainMichael NILL Comment on above:right temporalRepair of long head of biceps brachiiMichael NILL Repair of musculotendinous cuff of shoulderMichael NILL Repair of ulnar digital nerveMichael NILL Sialendoscope (physical object)Luz NILL Plan of Treatment DateCare ActivityDetailAuthorStart: 10-19-2025 End: 04-02-1606Msrexso encounter uttjnptsx86/10/2025 2:20 PM EST Office Visit [facility] [address] [facility] [address] [place] [address] Florin Burgos MD [address] [facility] [address] [address] NOMDianne [facility]ner NeurologyStart: 09-07-2025 End: 42-21-9044Pemjvpq encounter xmvfytynu11/29/2025 3:40 PM EDT Office Visit [facility] [address] [facility] [address] [place] [address] Florin Burgos MD [address] [facility] [address] [address] [facility]: 06-01-2025 End: 60-42-5678Ixdfxhl encounter procedureNOMS [facility]ITAL NEURComment on above:Arrived Start: 03-02-2025 End: 82-70-0292Fdpevea encounter wexrxmdxl67/23/2025 3:20 PM EDT Office Visit [facility] [address] [place] [address] [place] [address] Florin Burgos MD [address] [facility] [address] [place] [address] [facility]: 12-02-2024 End: 45-06-3883Ykjurulh Ndhybzy8112/02/2024 3:40 PM EST Clinical Support [facility] [address] [facility] [address] [place] [phone] Florin Burgos MD [address] [facility] [address] [place] [address] [facility]: 09-23-2024 End: 32-59-8922Tkdzsves SupportNOMS CARNEY [facility]ITAL NEURStart: 58-48-8417AAK test (Diabetes, CKD 3-4, OR last GFR 15-59)GFR test (Diabetes, CKD 3-4, OR last GFR 15-59)[facility]: 07-05-2024 End: 78-54-3490Mcymubo encounter /26/2024 3:50 PM EDT Office Visit [facility] [address] [place] [address] Florin Burgos MD [address] [facility] [address] [place] [address], [place] [id number] [facility]: 03-25-2024 End: 06-69-3661Mibbwua encounter nwkpuxlgs85/16/2024 3:30 PM EDT Office Visit [facility] [address] [facility] [address] [place] [address] Florin Burgos MD 53[address] [facility] [address], [place] [id number] [facility]: 12-25-2023 End: 12-81-4974Cqksimm encounter aozzcznrz87/15/2024 3:40 PM EST Office Visit [facility] [address] [place] [address] Florin Burgos MD [address] [facility] [address] [place] [id number] [facility]: 11-06-2023 End: 38-29-6311Ahdizroibtz &/transpos median nrv carpal tunneCARPAL TUNNEL RELEASE Right carpal tunnel syndrome 11/06/2023 12:39 PM [facility]: 96-10-7708Ihrdaqaod vaccinationFlu vaccine (#1)[facility]Stnew [place]: 52-68-9926Jdmkvqgfloud 0-64 years Vaccine (2 - PPSV23 if available, else PCV20)Pneumococcal 0-64 years Vaccine (2 - PPSV23 if available, else PCV20)[facility]: 09-02-2022 End: 83-04-3168VWVUGRXJ LAMINECTOMY FUSION ANTERIORCERVICAL LAMINECTOMY FUSION ANTERIOR 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) 09/02/2022 8:40 AM EDT [facility]: 70-74-1982Cksddvvtj vaccinationFlu vaccine (#1)[facility]: 14-51-1357Vmquhvabv vaccinationFlu vaccine (#1)[facility]: 63-40-4285Nyaqluvbflia 65+ years Vaccine (2 - PPSV23 or PCV20)Pneumococcal 65+ years Vaccine (2 - PPSV23 or PCV20)[facility]: 23-44-5427Gjivhegyt vaccinationFlu vaccine (Season Ended)[facility] [employer] [facility] Phone: start: 02-12-2021 End: 12-93-8734Jcsbvmrp EncounterSTVZ ORComment on above:KNEE ARTHROSCOPY WITH MENISCECTOMYStart: 78-34-7688Vmzuxy Wellness Visit (AWV)Annual Wellness Visit (AWV)[facility]: 01-29-2021 End: 19-58-4962MALMY-19COVID-19 Lab Routine Preop testing Expected: 01/29/2021, Expires: 01/29/2022[facility]: comment on above:Expected: 01/29/2021, Expires: 01/29/2022tart: 17-15-2715Xtkqylsrt for malignant neoplasm of breastBreast cancer screenShenandoah Memorial Hospital: 10-11-2313Caywsuzijaq Syncytial Virus (RSV) or age 60 yrs+ (1 - 1-dose 60+ series)Respiratory Syncytial Virus (RSV) or age 60 yrs+ (1 - 1-dose 60+ series)[facility]: 01-38-3127Byypetaki for osteoporosisDEXA (modify frequency per FRAX score)[facility]: 56-84-8621Jgerkpfkz for malignant neoplasm of breastBreast cancer screenBON [facility]: 44-50-4754Kqzgvrmiq for malignant neoplasm of colonColon cancer screen colonoscopyUpper Valley Medical Center [employer] Phone: start: 66-13-6160Eedomqof Vaccine (1 of 2)Shingles Vaccine (1 of 2)[facility]: 26-24-4546Foivrnthy for malignant neoplasm of colonJOY [facility] Centerart: 10-74-7278Sadapriu screen Diabetes screenUpper Valley Medical Center [employer] Work Phone: start: 51-28-2689Fmlzz panelJOY [facility] Start: 60-20-7858Tgsjsqqg screenDiabetes screenCommunity Health Systemsart: 30-67-7987Fofkwoqdj for malignant neoplasm of cervixAUGUSTA HEALTH Start: 12-91-5257Ptyojmwhr for malignant neoplasm of cervixAUGUSTA HEALTHStart: 14-40-1333NVmU/Tdap/Td vaccine (1 - Tdap)DTaP/Tdap/Td vaccine (1 - Tdap)[facility] Systemsart: 88-58-8117Gpaplani retinal examDiabetic retinal examCommunity Health Systemsart: 32-13-3652Vdruvhjo screeningDiabetic retinal examCommunity Health Systemsart: 38-68-3477Ofhfawicj C screening Hepatitis C screenCommunity Health Systemsart: 40-61-7429Gewsg screening for proteinCommunity Health Systemsart: 28-83-7389NONDY-19 Vaccine (1)COVID-19 Vaccine (1)[facility] [employer] Phone: start: 52-85-9548OTD screeningHIV screenCommunity Health Systemsart: 15-03-2018Qzdqnynpqa ScreenDepression ScreenShenandoah Memorial Hospital: 85-29-9072Uzccqboo foot examinationDiabetic foot examAUGUSTA HEALTHStart: 57-52-3834Whprxxrpha A1c nkgeojgqtviQ6R test (Diabetic or Prediabetic)[facility]ALTHStart: 58-87-2930Gjydm panelLipidsCommunity Health Systemsart: 71-36-5037ZIKFG-19 Vaccine (#1)COVID-19 Vaccine (#1) [facility] Systemsart: 77-55-3103Gaqpny Wellness Visit (AWV)Annual Wellness Visit (AWV)[facility] Systemsart: 70-79-0812Szrrlnozg C screeningHepatitis C screenUpper Valley Medical Center [employer] Work Phone: adult NIV/Positive Airway PressureAdult NIV/Positive Airway Pressure Respiratory Care Routine Every 4hr until discontinued starting 09/03/2022 [employer] Phone: comment on above:Every 4hr until discontinued starting 09/03/2022 End: 66-18-8192Hwtdb glucose - POCTBON instruMagicSaint John'S Health Systemment on above:One Time for 1 Occurrences starting 11/06/2023 until 11/06/2023ontinuous pulse oximetryPulse oximetry, continuous Respiratory Care Routine Every 4hr until discontinued starting 09/02/2022 [employer] Phone: comhsjv on above:Every 4hr until discontinued starting 09/02/2022 End: 30-12-3562SFMIM-19COVID-19 Lab Routine Preop testing 1 Occurrences starting 02/08/2021 until 02/08/2021[facility] Phone: comptvp on above:1 Occurrences starting 02/08/2021 until 0216KADNR-10RHLAN-70 Lab Routine Preop testing 02/08/2021 10:00 AM EDTMercZestFinance Phone: End: 66-61-2618Dwmoxge, UrineBON Link_A_Media Devicesment on above:Once for 1 Occurrences starting 06/17/2022 until 06/17/2022Glucose [Mass/volume] in Serum or PlasmaBON [employer] Phone: comkiib on above:4X Daily (AC & HS) until discontinued starting 09/02/2022s Needed until discontinued starting 09/02/2022Glucose [Mass/volume] in Serum or PlasmaBON [employer] Phone: commzlg on above:4X Daily (AC & HS) until discontinued starting 10/28/2022s Needed until discontinued starting 10/28/2022Home BIPAP or CPAPHome BIPAP or CPAP Respiratory Care Routine Daily until discontinued starting 09/02/2022ON [employer] Phone: comment on above:Daily until discontinued starting 09/02/2022 End: 20-45-5013Ssld O2 eval (desaturation screen)Home O2 eval (desaturation screen) Respiratory Care Routine One Time for 1 Occurrences starting 09/04/2022 until 09/04/2022 [employer] Phone: comment on above:One Time for 1 Occurrences starting 09/04/2022 until 09/04/2022 End: 62-40-2429TZMCDBNX PACU OXYGEN THERAPY PROTOCOLInitiate PACU Oxygen Therapy Protocol Respiratory Care Routine Continuous until discontinued starting 11/06/2023 [employer] Phone: Comment on above:Continuous until discontinued starting 11/06/2023Oxygen therapy [Minimum Data Set]Initiate Oxygen Therapy Protocol Respiratory Care Routine Daily until discontinued starting 02/12/2021 [employer] Phone: comment on above:Daily until discontinued starting 02/12/2021Oxygen therapy [Minimum Data Set]Initiate Oxygen Therapy Protocol Respiratory Care Routine As Needed until discontinued starting 09/02/2022 [employer] Phone: Comment on above:As Needed until discontinued starting 09/02/2022xygen therapy [Minimum Data Set]Initiate Oxygen Therapy Protocol Respiratory Care Routine As Needed until discontinued starting 10/28/2022 [employer] Phone: comment on above:As Needed until discontinued starting 10/28/2022xygen therapy [Minimum Data Set]Initiate Oxygen Therapy Protocol Respiratory Care Routine As Needed until discontinued starting 11/06/2023 [employer] Phone: comment on above:As Needed until discontinued starting 11/06/2023hase I & II - metered glucosePhase I & II - metered glucose Point of Care Testing Routine As Needed until discontinued starting 02/12/2021[facility] Phone: comepoi on above:As Needed until discontinued starting 02/12/2021 End: 61-66-5132Iorclgiyg, urine POCTPregnancy, urine POCT Point of Care Testing Routine One Time for 1 Occurrences starting 11/06/2023 until 11/06/2023 Link_A_Media Devicesment on above:One Time for 1 Occurrences starting 11/06/2023 until 11/06/2023 End: 52-99-2736KYWQTJZY SPECIMENBON [employer] Phone: comtjlb on above:Once for 1 Occurrences starting 09/03/2022 until 09/03/2022pirometry panelIncentive spirometry Respiratory Care Routine Every 2hr while awake until discontinued starting 09/02/2022 [employer] Phone: comhtfn on above:Every 2hr while awake until discontinued starting 09/02/2022pirometry panelIncentive spirometry RT Respiratory Care Routine Every 2hr while awake until discontinued starting 1 [employer] Phone: comment on above:Every 2hr while awake until discontinued starting 09/02/2022pirometry panelIncentive spirometry RT Respiratory Care Routine Every 2hr while awake until discontinued starting 1 [employer] Phone: comlzwr on above:Every 2hr while awake until discontinued starting 09/03/2022pirometry panelIncentive spirometry Respiratory Care Routine Daily until discontinued starting 10/28/2022 [employer] Phone: comment on above:Daily until discontinued starting 10/28/2022 Immunizations Immunization DateImmunizationNotesCare HbgrafuvIyhfipvc18-10-4620mfvtclgshuvt conjugate vaccine, 13 valentSteven Rusher DPM Work Phone: [facility] HospitalLbfgukukht07-28-5028jgwdeqksatxd polysaccharide vaccine, 23 valentSteven Rusher DPM Work Phone: [facility] HospitalTbrgqvaakf96-71-9761ghxxkxnjsdps polysaccharide vaccine, 23 valentSteven Rusher DPM Work Phone: [facility] [employer] Payers DatePayer CategoryPayerPolicy [id number] Health InsuranceMEDICAL MUTUAL [id number] [facility] [id number] 2023- [address] [place] [id number] 1.2.840.620738.1.13.239.2.7.3.483113.315 2002Medicare [id number] [id number] 1.2.840.575727.1.13.239.2.7.3.459301.315 [id number] 1960 [id number] 1.2.840.554764.1.13.239.2.7.3.497766.94286-88-2095Kizbjqe [id number] 2.16.840.1.210039.3.57[id number] 2.16.840.1.426155.3.579.2.447 [id number] 2.16.840.1.662426.3.57[id number] 2.16.840.1.238600.3.57[id number] 2.16.840.1.471585.3.57[id number] 2.16.840.1.145604.3.57[id number] 2.16.840.1.504413.3.57[id number] 2.16.840.1.635196.3.57[id number] 2.16.840.1.306137.3.57[id number] 2.16.840.1.362607.3.57[id number] 2.16840.1.744217.3.57[id number] 2.16.840.1.480936.3.57[id number] 2.16.840.1.547716.3.57[id number] 2.16840.1.997919.3.57[id number] 2.16.840.1.732756.3.57[id number] 2.16.840.1.514430.3.57[id number] 2.16.840.1.709611.3.57[id number] 2.16840.1.246761.3.57[id number] 2.16.840.1.910401.3.57[id number] 2.16.840.1.896320.3.57[id number] 2.16.840.1.093833.3.57[id number] 2.16.840.1.440751.3.57[id number] 2.16.840.1.647058.3.579.2.9Self-paySelf Pay [id number] Social History DateTypeDetailFacilityStart: 01-29-2021 End: 16-61-1061Gtktcfq smoking status NHISNever smokerIsothermal Systems Research Phone: start: 01-29-2021 End: 81-05-0835Jbrcbij use and exposureNever [employer] Phone: start: 01-29-2021 End: 14-96-5822Prxvjfr intakeEx-drinker (finding)[employer] Phone: start: 67-05-0770Occ Assigned At BirthNot on [employer] Phone: start: 06-07-2022 End: 36-53-5555Whvwrgxd to SARS-CoV-2 (event)Not [facility] hospitalIs[facility] Systems [facility] Phone: start: 82-87-3731Dbtlznf smoking statusNeverGeneral Surgery [place] Start: 06-17-2022 End: 83-88-8053Ish Assigned At BirthFemaleGeneral Surgery [employer] Start: 60-92-9782Szf [facility] Daytontart: 09-82-3546Eqefwxe SDOH Alcohol Mxarjhfzc8DNK [employer] Work Phone: start: 06-17-2022 End: 49-82-0602Iyidczz of Social functionPAGE HOSPITAL instruMagicHow often to you have a drink containing alcohol?NeverBON [facility] MEDICAL CENTERjobsite123 [facility]ITALStart: 09-31-6344Czwfjw identityIdentifies as female gender (finding)[facility] Roojoom [facility]ITALStart: 36-72-9961Dblleg orientationHeterosexual (finding)[facility] Roojoom [facility]ITALStart: 10-23-2023 End: 91-70-9535Boykceo intakeLifetime non-drinker (finding)[facility] HospitalStart: 98-93-3820Ynovftf Commentcaffeine: 1-2 cups per day coffee, teaNOMS Healthcare Medical Equipment Procedure CodeEquipment CodeEquipment Original TextEquipment IdentifierDates Spacer Spnl 7 Deg [id number] Mm [facility] Mis - [id number]: 29-40-2266Qqnx Spinal Disc Cerv Mobi-C [id number] - [id number]: 10-28-2022 Clinical Notes 03-21-2022 to 09-15-2025 Note Date & BuylYhbuOjqrqggl42-82-4341 Notex[employer] Progress Note Time In: 1509 Time Out: 1608 HPI Present at Visit: patient Location of Service: Patient Location: Home; Provider Location: Home Office Current Presenting Symptoms/Problems: Trauma: No trauma noted Depression =2-3/10; Anxiety =5/10; Pain = 5-6/10 (right knee, hip, back) Patient had appointment with knee surgeon who commented that medial knee pain patient is experiencing is due to inflammation. He wanted to prescribe anti-inflammatory; patient informed him she is unable to take the medications because she experiences severe GI distress. He reportedly prescribed Nexium + Celebrex. Patient said she tried taking the medications and had severe upset stomach so she stopped. Patient is using Frankincense and Oregano essential oils (as well as icing) and reported some relief. Surgeon also asked what was being done in PT and patient said attempts in PT to achieve full extension in her knee were very painful. Surgeon said patient already at full extension and that if she achieves any more, she will be hyperextending. He advised her to discontinue PT for 2 weeks to see if pain eases. He also informed her that he believes she has made good progress 3 months postsurgery and that she should not expect return to full function until 6 months postsurgery. Patient was also told by PT that she needs prescription from back surgeon so she can attend PT to address her back. Patient said the pain has become more intense and that she would like to have an epidural injection if she could. Patient scheduled appointment with Dr. Cruz for 10/03 or 10/04. Patient said that neurologist's office rescheduled her appointment for 10/10/25 and patient needs prescription refill. She said she has been leaving messages and was worried that prescriptions would not be refilled until her appointment. Patient said she learned that the prescription was phoned in. Patient said her paternal cousin with early onset dementia at the age of 59. She also learned another paternal cousin at the age of 85. She said she will be attending funerals this weekend. Patient saw her sdgiuu-gg-rzr last week and she asked patient and spouse to come for Thanksgiving. They agreed to do so. Patient said siblings' Thanksgiving gathering will be 10/08. She does not believe he siblings in [place] will be traveling to the area. Individualized Service Plan (ISP): Treatment Plan Revision [...] Depression > 4; Anxiety > 3; patient having more pain and worried about some lack of progress rehabbing knee Therapeutic Interventions Provided: Assessed Mood, Assessed Thinking, Assessed Safety, Cognitive Behavioral Therapy, Psychoeducation, Supportive Psychotherapy, and Symptoms monitoring Reviewed symptoms and events since last session. Patient initiated session discussing issues related to postsurgery treatment of her knee as well as the continued pain she is having. We processed her reaction to surgeon's suggestion. Patient also given time to review her successful assertion of needs re: increased back pain and she was provided with positive feedback and support. Patient also given time to process recent family issues. Patient was open and receptive to discussion and she [...] normal and receptive normal Mood: anxious and frustrated Affect: appropriate, broad, congruent, full, and stable Thought Process: coherent, goal-directed, linear, logical, normal, and relevant Thought Content: intact, no delusi (more content not included)...[facility]11-03-2025 Telephone encounter Note* Telephone Encounter - Marifer Gilbert - 09/12/2025 4:00 PM EST Pt called today and needs refills on Gabapentin 800 mg 4 times a day for 90 days Clonazepam 0.5 mg [facility] HospitalKryegnnjwr44-23-8525 Miscellaneous Notes* Telephone Encounter - Marifer Gilbert - 09/12/2025 4:00 PM EST Pt called today and needs refills on Gabapentin 800 mg 4 times a day for 90 days Clonazepam 0.5 mg [facility] [place] documented in this encounterSt. Louis Children's HospitalKwdgrvbzgv20-00-0718 NotePsych Progress Note Time In: 1032 Time Out: 1130 HPI Present at Visit: patient Location of Service: Patient Location: Home; Provider Location: Home Office Current Presenting Symptoms/Problems: Trauma: No trauma noted Depression =5/10; Anxiety =4-5/10; Pain = 5/10 (right knee, hip, back) Patient's older brother 08/06/25. Patient said she has been hoping to meet up with her kqjvlo-ud-ksk, but both of them have been busy. Patient hoping to see her either at wedding tomorrow or next week. Patient continues to attend PT to address knee postsurgery, and patient said she is disappointed. Patient said she is improving in strength and flexion, but she continues to have difficulty with extension. She said she is now having pain in her right hip and back and she told therapists that she thought it was due to hanging weights from her leg to try to improve extension. Patient said they discontinued the use of weights. Patient said sleep is also very poor because she sleeps on her back and she has been told that she cannot put a pillow behind her knees (reportedly impairs extension of the knee) and that the best she can do is put pillow behind her calves. This is also creating back pain for her andwaking her up. Patient said she tried to sleep on her side but is unable to. Patient worried that surgeon will be unhappy with lack of progress restoring extension and that he will suggest they do another surgery. She has a follow-up appointment with surgeon next week. Patient said recent weather changes have been having a negative impact on her pain and headaches. Individualized Service Plan (ISP): Treatment Plan Revision [...] Depression > 4; Anxiety > 3; patient having more pain and worried about some lack of progress rehabbing knee Therapeutic Interventions Provided: Assessed Mood, Assessed Thinking, Assessed Safety, Cognitive Behavioral Therapy, Psychoeducation, Supportive Psychotherapy, and Symptoms monitoring Reviewed symptoms and events since last session. Majority of session focused on patient's frustration and anxiety related to attempts to restore functioning of knee post surgery. Patient given positive feedback on mandaen of strength in the leg and flexion. Patient also provided with psychoeducation on the slowing of healing associated with age. Patient given time to review and process her worries about pending surgery appointment and we explored cognitive challenges and reframes she could use to cope with the anxiety. Patient was open and receptive to discussion and she [...] normal and receptive normal Mood: anxious and frustrated Affect: appropriate, broad, congruent, full, and stable [...] social judgment intact Reliability: very reliable Plan: Orthopedic surgery follow-up appointment 09/08/25 with surgeon; ask him about possibility of Dr. Cruz (more content not included)...[facility]2025 NotePsych Progress Note Time In: 1300 Time Out: 1358 HPI Present at Visit: patient Location of Service: Patient Location: Home; Provider Location: Home Office Current Presenting Symptoms/Problems: Trauma: No trauma noted Depression =5-6/10; Anxiety =4/10; Pain = 5/10 (right knee) Patient's older brother 09/05/25. He had been ill and suffering from dementia. Patient said she and spouse were out of town celebrating their wedding anniversary and she had planned to visit him on . Patient said the services will be on 08/12/25 and they originally had planned on making it private. Patient said that the immediate family realized that patient's siblings would be very upset about that decision, so they posted arrangements in the obituary. Patient said she was getting calls from her cousins asking about plans; she said she is going to screen her calls because it is too upsetting for her to discuss. Patient had F/U appointment with orthopedic ELECTRONICS WORKER, who reportedly debrieded the wound and informed patient that there was no infection observed. Patient sent for blood work with trackers that confirmed no presence of infection. Patient said she is no longer takiung oxycodone (she believes she is now taking Schneider) and she is no longer using a cane with the exception of using it in the middle of the night if she needs to get up. Individualized Service Plan (ISP): Treatment Plan Revision [...] Goals/Objectives: Depression > 4; Anxiety > 3; patient's brother 5 days ago Therapeutic Interventions Provided: Assessed Mood, Assessed Thinking, Assessed Safety, Cognitive Behavioral Therapy, Psychoeducation, Supportive Psychotherapy, and Symptoms monitoring Reviewed symptoms and events since last session. Session focused on providing grief support and reviewing improvements in knee. Patient was open and receptive to discussion and she [...] normal and receptive normal Mood: anxious and grief Affect: appropriate, broad, congruent, full, [...] social judgment intact Reliability: very reliable Plan: Orthopedic surgery follow-up appointment 09/08/25 with surgeon Follow-up with neurology 09/09/25 Challenge catastrophizing thoughts Maintain boundaries This visit was conducted [id number]-[id number] with the use of audio and video technology using [employer] and the patient was notified that using 3rd green party telecommunication application (CleanEdison) is HIPAA compliant. It was explained that [...] risks of video-conferencing that differ from in-person sessi (more content not included)...[facility]09-24-2025 NotePsych Progress Note Time In: 1201 Time Out: 1258 HPI Present at Visit: patient Location of Service: Pa/[place] Location: Home; Provider Location: Home Office Current Presenting Symptoms/Problems: Trauma: No trauma noted Depression =5/10; Anxiety =6-7/10; Pain = 5-6/10 (right knee) Patient very upset at onset of session. She has had struggles recovering from knee replacement surgery. Patient said she was not able to fully control her foot and lower leg following the surgery and her spouse had to help her get in the shower and she was afraid to use the steps to leave the house. She said she began having panic attacks. Patient had follow-up appointment with PA at surgeon's office and was informed that a block was injected into her quadricept of the leg and that the muscle had not yet woken up to communicate with her foot. Patient said she regained control of her lower extremity within a couple of days. Patient said the panic attacks subsided. Patient has been attending PT 3X/week (going down to 2X/week next week). Patient said she has also had issues at the incision and a stitch fell out early. Further, it appears that she may have an infection and she has appointment scheduled with PA at surgeon's office 08/04/25. Patient worried that she is back to [facility] and she refuses to go through surgery again and would rather be treated by Hospice. Patient said sleep has been very poor. Patient's spouse made decision to retire. He did not inform patient of this; she learned of it when a friend stopped by to confirm that her spouse had retired from his job. Individualized Service Plan (ISP): Treatment Plan Revision [...] Depression > 4; Anxiety > 3; patient was having panic attacks Therapeutic Interventions Provided: Assessed Mood, Assessed Thinking, Assessed Safety, Cognitive Behavioral Therapy, Psychoeducation, Supportive Psychotherapy, and Symptoms monitoring Reviewed symptoms and events since last session. Session focused on addressing patient's anxiety related to postsurgery treatment and complications. Patient's catastrophizing was addressed and she was receptive to comment that she is not back to square one and that she needs to be open to the suggestion provided to her tomorrow during the appointment. Patient also given time to review an process spouse's usp. Patient's acceptance of his decision was discussedand they seem to be getting along well. Patient seemed calmer at end of session and we agreed to meet next week. Patient provided with encouragement and support. Response [...] social judgment intact Reliability: very reliable Plan: Orthopedic surgery follow-up appointment 08/04/25 Celebrate wedding anniversary by going to [employer] Challenge catastrophizing thoughts This (more content not included)...[facility]07-25-2025 NotePsych Progress Note Time In: 1230 Time Out: 1327 HPI Present at Visit: patient Location of Service: Patient Location: Home; Provider Location: Home Office Current Presenting Symptoms/Problems: Trauma: No trauma noted Depression =5/10; Anxiety =6-7/10; Pain = 5-6/10 (right knee) Patient presents for session rather upset. She said that knee replacement surgery was originally scheduled for 08/18/25, but patient had asked to be on cancellation list. Patient said she received call and surgery has been moved up to 06/13/25 and patient is now feeling very anxious about the surgery, possibility of recurrence of seizures due to anesthesia, and worries about how challenging recovery will be. She said she is very scared and she has been very irritable despite reassurances from orthopedist, surgeon, and neurologist. Individualized Service Plan (ISP): Treatment Plan Revision [...] Goals/Objectives: Depression > 4; Anxiety > 3; knee replacement surgery in 2 weeks Therapeutic Interventions Provided: Assessed Mood, Assessed Thinking, Assessed Safety, Cognitive Behavioral Therapy, Psychoeducation, Supportive Psychotherapy, and Symptoms monitoring Reviewed symptoms and events since last session. Session focused on addressing patient's anxiety of surgery that will occur in 2 weeks. We reviewed prior surgeries patient has had and that she did not have recurrence of seizures. We also reviewed reassurances from neurologist. Patient also provided with observation that she is ahead of the game because she has been receiving PT to strengthen muscles in anticipation of the knee replacement surgery. Patient seemed calmer at end of session and we agreed to meet next week. Patient provided with encouragement and support. Response [...] social judgment intact Reliability: very reliable Plan: Knee replacement surgery 06/13/25 Challenge catastrophizing thoughts by reviewing successful past surgeries and reassurances from all providers This visit was conducted nwcz-ew-[id number] with the use of audio and video technology using [employer] and the patient was notified that using 3rd green party telecommunication application ([employer]) is HIPAA compliant. It was explained that [...] differ from in-person sessions was explained includin) nobody will record the session without the permission from the others person(s), 2) the provider has no control over who may hear the session on the patient???s side and th (more content not included)...[facility]07-23-2025 History of Present illness Narrative* Florin Burgos MD - 06/01/2025 3:20 PM EDT Images from the original note were not included. Subjective Kristin Null is a 64 y.o. female who presents for Seizures History of Present Illness The patient is a 64-year-old female who presents for a follow-up of epilepsy. She has been experiencing a low mood and has been self-critical throughout the day. She reports that her mood has been bad. She is currently under the care of Dr. Huggins for her mental health. She lisa trazodone 1.5 tablets at bedtime for sleep, with an additional tablet if needed. She is seeking refills for her medications, including gabapentin and phenytoin ER 30 mg, which she takes three times daily. She also requires a refill of her B12 supplement. She is scheduled for right knee surgery on 06/13/2025, which was initially planned for 09/2024. Shereports discomfort in her knee when walking long distances and is unsure which knee is causing the most pain. She has been advised against using CBD oil and is curious about the need to discontinue as pirin prior to her surgery. She is also interested in understanding the process of a nerve block. Post-surgery, she plans to continue with physical therapy and has been engaging in therapy and lifting 4-pound weights. Since her last visit, she has had no seizures and reports that it has been 20 years since her last seizure. She has been doing well in managing her epilepsy. INTERVAL: Since last visit, she has had no seizures and reports that it has been 20 years since herlast seizure. PAST SURGICAL HISTORY: She had neck surgery previously. MEDICATIONS CURRENT MEDS: Trazodone 1-1/2 tablets Oral At bedtime, additional tablet if unable to sleep Gabapentin Phenytoin ER 270 mg Oral PREVIOUS MEDS: Dilantin Aspirin Review of Systems Const: Denies appetite change, [...] findings, which shall supersede the foregoing. Objective Blood pressure 157/86, pulse 84, height 5', weight 190 lb. Physical Exam Motor Examination Muscle Bulk and Tone: Normal muscle tone Strength: Normal strength in upper and lower extremities Musculoskeletal: Normal muscle tone and strength in upper and lower extremities Results Labs - Metabolic Panel: 05/31/2025, Sodium levels are normal. Blood sugar levels are normal. CO2 levels are high. Kidney function is normal. Liver function is normal. Assessment & Plan 1. Epilepsy. Her metabolic panel results are within normal limits, except for an elevated CO2 level, which is a common finding in individuals with epilepsy. She has not experienced any severe seizures for severalyears. A prescription for trazodone 1.5 tablets at bedtime, with an additional tablet if needed, will be provided. Additionally, a 90-day supply of gabapentin and phenytoin ER 30 mg, to be taken three times daily, will be prescribed. A B12 injection will be administered during this visit. 2. Right knee pain. She reports significant pain in her right knee, which worsens with prolonged walking. She is scheduled for surgery on 06/13/2025. She has been advised to discontinue aspirin 7 days prior to her surgery. Post-surgery, she will be given Lovenox injections for a few days until she regains mobility in her leg. Physical therapy will commence immediately after surgery. 3. The patient was counseled on the risks of stroke, Ml, and sudden with ADRIANA, along with the need for compliance with CPAP/BiPAP treatment. 4. Obtained OARRS report and personally reviewed and reviewed with the patient 5. Klonopin 0.5 mg TID for seizures and anxiety 6. I counseled the patient on the possible side effects and interactions of medications.' 7. B12 shot every 3 months 8. This clinical note was created utilizing [employer] documentation system. All information has been thoroughly reviewed, corrected as necessary, and authenticated by the provider to ensure accuracy and completeness. On occasion, LEEANNA ambient documentation system erroneously drops words or replaces a spoken word with a similar sounding word. Please notify with any questions or concerns regardingthis clinical note. 9. The patient was counseled on the risks of stroke, Ml, and sudden with ADRIANA, along with the need for compliance with CPAP/BiPAP treatment. documented in this encounterSt. Louis Children's [id number] NotePsych Progress Note Time In: 1234 Time Out: [...] MD office and demanded to speak to ELECTRONICS WORKER or MD to resolve this issue. Patient [...] her brother Oskar tomorrow at a graduation green party. Patient also learned her estranged nephew attempted suicide and that he is going to be transferred from [facility] floor to inpatient psychiatric unit. Patient said niece with mental health issues has been approved for disability and that she got a puppy. She said her brother and ossthh-hj-huo set boundary that she is responsible for [...] reliable Plan: Evaluation with orthopedic surgeon at [place] for knee replacement 05/12/25 [facility] (more content not included)...[facility] 05-04-2025 Telephone encounter Note* Telephone Encounter - Gretchen Sal NP - 05/04/2025 2:55 PM EDT Patient leaves voicemail that her Dilantin needs PA. I sent refills to [facility]. Says she will be outof medication on Friday [facility] [id number] Miscellaneous Notes* Telephone Encounter - Gretchen Sal NP - 05/04/2025 2:55 PM EDT Patient leaves voicemail that her Dilantin needs PA. I sent refills to [facility]. Says she will be outof medication on Friday documented in this encounterSt. Louis Children's [id number] NotePsych Progress Note Time In: 1231 Time Out: 1327 HPI Present at Visit: patient Location of Service: Patient Location: Home; Provider Location: Home Office Current Presenting Symptoms/Problems: Trauma: No trauma noted Depression =3/10; Anxiety =4-5/10; Pain = 5/10 (right knee) Patient said she has evaluation with ELECTRONICS WORKER in orthopedic surgery on 04/14/25 to move forward with knee replacement. She said Dr. Vega will be performing the surgery. She said geophysical prospector commented that patient does not want a [...] intact Reliability: very reliable Plan: Evaluation with ELECTRONICS WORKER at [place] for knee replacement 04/14/25 Take comments from others with a grain of salt; address concerns with providers Patient will call if sooner appt needed This visit was conducted axys-bh-ugtu with the use of audio and video technology using [employer] and the patient was notified that using 3rd green party telecommunication application ([employer]) is HIPAA compliant. It was explained that the limits of confidentiality that exist during in-person sessions also apply for telepsychology sessions (i.e., where the patient indicates that he or she intends to harm self or others, the patie (more content not included)... [facility]05-02-2025 NotePsych Progress Note Time In: 1230 Time Out: [...] Reliability: very reliable Plan: Awaiting call from [facility] to schedule knee replacement surgery Challenge negative self-talk by reminding yourself that you are not a quitter and that you tried your best to adhere to treatment recommendations This visit was conducted (more content not included)...[facility]04-23-2025 History of Present illness Narrative* Florin Burgos MD - 03/02/2025 3:20 PM EDT Images from the original note were not [...] Patient also states that she is still havingissues with sleep. Is only taking 150mg of [...] (BUSPAR) 10 mg, Oral, Daily calcium carbonate (Os-Asa) 1250 (500 Ca) MG tablet Every 12 [...] Cervical stenosis of spinal canal 05/21/2018 Depression ([facility]) Dizziness 08/08/2013 Epilepsy 09/16/2017 Fatigue 05/21/2018 Headache 11/19/2011 History of being hospitalized 08/2005 [facility] x5 days for double pneumonia Insomnia 07/14/2018 Lack of coordination 08/08/2013 Malaise and fatigue 02/15/2014 ADRIANA (obstructive sleep apnea) 05/21/2018 Paresthesias 05/21/2018 Radicular pain in left arm 05/21/2018 Right shoulder pain Seizure disorder ([facility]/HCC) 06/07/2009 Sleep apnea 10/24/2015 Thyroid disease ([facility]) Vitamin D deficiency 01/25/2013 Past Surgical History: Procedure Laterality Date BACK SURGERY 1972, 1998 BIOPSY VAGINAL 2021 cyst CARPAL TUNNEL RELEASE Right 1985 CERVICAL DISC ARTHROPLASTY 10/28/2022 C3/4/5 Dr. Cruz CERVICAL FUSION 09/02/2022 C5-C6 - Dr. Cruz and 04/16 CHOLECYSTECTOMY CYST REMOVAL Right breast - 1989, 1990 KNEE SURGERY Left for meniscus and ACL tear OTHER SURGICAL HISTORY sialendoscopy PARATHYROIDECTOMY IL KNEE SCOPE,DIAGNOSTIC Bilateral IL LOBECTOMY TEMPOR CORTICOGRAPHY 2006 temporal lobectomy [place] NEUROPLASTY &/TRANSPOSITION ULNAR NERVE ELBOW 1989 ROTATOR [...] Depression: Not at risk (08/04/2020) Received from [employer] PHQ-2 Total Score: 0 REVIEW OF SYMPTOMS: [...] equal, round, and reactive to light and accommodation,both directly and consensually. Visual suarez were full [...] in all four extremities, including at least criminal court judge, finger abductors, biceps, triceps, deltoid, toe flexors [...] and spasticity are not evident. Arm swing isnormal. Toe, heel, and tandem walking are performed [...] by mouth in the morning and 1 tablet(800 mg) at noon and 1 tablet (800 [...] Clonazepam, Trazodone 200mg. Send to [facility] in [place]. documented in this encounterSt. Louis Children's [id number] NotePsych Progress Note Time In: 1143 Time Out: 1238 HPI Present at Visit: patient Location of Service: Patient Location: Home; Provider Location: Home Office Patient unable to connect to [employer]Ed[employer] again and received a message that her [...] less intense pain. Patient said that another chrome cleaner she found through a friend agreed [...] is 03/08 Consider meeting with brother and bgpkge-qk-cwg at a later date for [facility] service evaluation 02/14/25 It was explained that t (more content not included)...[facility]04-04-2025 NotePsych Progress Note Time In: 1037 Time Out: 1130 HPI Present at Visit: patient Location of Service: Patient Location: Home; Provider Location: Home Office Patient unable to connect to either [employer]Edison nor [employer] and reportedly received a message that her [...] procedure (Carmella) and patient did. She said center receptionist informed her that she could opt to [...] was too big. Patient has found another chrome cleaner through a friend and evaluation is [...] block and ask for (more content not included)...[facility] 01-21-2025 NotePsych Progress Note Time In: 1236 Time Out: [...] said she has been referred to Dr. Carmella and that he will eventually administer injection [...] worsening knee pain) This visit was conducted nzoe-fy-tqiu with the use of audio and video technology using CleanEdison and the patient was notified that using (more content not included)...[facility]01-30-2025 NotePsych Progress Note Time In: 1100 Time Out: [...] Concerns Referred/Deferred: Medical pain management Service Provider: Roaslba Gregorio, Ph.D. Service Frequency: 4-6 Weeks Patient's [...] from orthopedic surgeon This visit was conducted gjqh-ry-cbvj with the use of audio and video technology using [employer]Edison and the patient was notified that using 3rd green party telecommunication application (CleanEdison) is HIPAA compliant. It was explained that [...] was explained includin) nob (more content not included)...[facility]01-23-2025 History of Present illness Narrative* Florin Burgos MD - 12/02/2024 3:40 PM EST Images from the original note were not [...] (BUSPAR) 10 mg, Oral, Daily calcium carbonate (Os-Asa) 1250 (500 Ca) MG tablet Every 12 [...] Cervical stenosis of spinal canal 05/21/2018 Depression ([facility]) Dizziness 08/08/2013 Epilepsy ([facility]) 09/16/2017 Fatigue 05/21/2018 Headache 11/19/2011 History of being hospitalized 08/2005 [facility] x5 days for double pneumonia Insomnia 07/14/2018 Lack of coordination 08/08/2013 Malaise and fatigue 02/15/2014 ADRIANA (obstructive sleep apnea) 05/21/2018 Paresthesias 05/21/2018 Radicular pain in left arm 05/21/2018 Right shoulder pain Seizure disorder ([facility]) 06/07/2009 Sleep apnea 10/24/2015 Thyroid disease ([facility]) Vitamin D deficiency 01/25/2013 Past Surgical History: Procedure Laterality Date BACK SURGERY 1972, 1998 BIOPSY VAGINAL 2020 cyst CARPAL TUNNEL RELEASE Right 1984 CERVICAL DISC ARTHROPLASTY 10/28/2022 C3/4/5 Dr. Cruz CERVICAL FUSION 09/02/2022 C5-C6 - Dr. Cruz and 04/16 CHOLECYSTECTOMY CYST REMOVAL Right breast - 1989, 1990 KNEE SURGERY Left for meniscus and ACL tear OTHER SURGICAL HISTORY sialendoscopy PARATHYROIDECTOMY IL KNEE SCOPE,DIAGNOSTIC Bilateral IL LOBECTOMY TEMPOR CORTICOGRAPHY 2006 temporal lobectomy [place] NEUROPLASTY &/TRANSPOSITION ULNAR NERVE ELBOW 1989 ROTATOR [...] Depression: Not at risk (08/04/2020) Received from [employer], [employer] PHQ-2 Total Score: 0 REVIEW OF SYMPTOMS: [...] equal, round, and reactive to light and accommodation,both directly and consensually. Visual suarez were full [...] in all four extremities, including at least criminal court judge, finger abductors, biceps, triceps, deltoid, toe flexors [...] and spasticity are not evident. Arm swing isnormal. Toe, heel, and tandem walking are performed [...] Temporal lobe epilepsy (CMS/HCC) documented in this encounterSt. Louis Children's [id number] NotePsych Progress Note Time In: 1230 Time Out: [...] not yet heard from surgeon. Patient spent [place] and New Year's with brother and afniyy-pf-adl. She said that her brother's cognitive functioning [...] able to approp (more content not included)... [facility]12-13-2024 NotePsych Progress Note Time In: 1135 Time Out: [...] spending with Patricia This visit was conducted qvxi-hu-dkkh with the use of audio and video technology using [employer]Edison and the patient was notified that using 3rd green party telecommunication application (CleanEdison) is HIPAA compliant. It was explained that the limits of confidentiality that exist during in-person sessions also apply for telepsychology sessions (i.e., where the patient indicates that he or she intends to harm self or others, the megha (more content not included)... [facility]11-14-2024 History of Present illness Narrative* Kim CochranANTWAN - 09/23/2024 3:20 PM EST Images from the original note were not [...] (BUSPAR) 10 mg, Oral, Daily calcium carbonate (Os-Asa) 1250 (500 Ca) MG tablet Every 12 [...] Therapy Supplies (CareTouch CPAP & BIPAP Hose) [facility] BIPAP mask, heating tubing and supplies for [...] Cervical stenosis of spinal canal 05/21/2018 Depression ([facility]) Dizziness 08/08/2013 Epilepsy ([facility]) 09/16/2017 Fatigue 05/21/2018 Headache 11/19/2011 History of being hospitalized 08/2005 [facility] x5 days for double pneumonia Insomnia 07/14/2018 Lack of coordination 08/08/2013 Malaise and fatigue 02/15/2014 ADRIANA (obstructive sleep apnea) 05/21/2018 Paresthesias 05/21/2018 Radicular pain in left arm 05/21/2018 Right shoulder pain Seizure disorder ([facility]) 06/07/2009 Sleep apnea 10/24/2015 Thyroid disease ([facility]) Vitamin D deficiency 01/25/2013 Past Surgical History: Procedure Laterality Date BACK SURGERY 1973, 1998 BIOPSY VAGINAL 2020 cyst CARPAL TUNNEL RELEASE Right 1985 CERVICAL DISC ARTHROPLASTY 10/28/2022 C3/4/5 Dr. Cruz CERVICAL FUSION 09/02/2022 C5-C6 - Dr. Cruz and 04/16 CHOLECYSTECTOMY CYST REMOVAL Right breast - 1989, 1990 KNEE SURGERY Left for meniscus and ACL tear OTHER SURGICAL HISTORY sialendoscopy PARATHYROIDECTOMY IL KNEE SCOPE,DIAGNOSTIC Bilateral IL LOBECTOMY TEMPOR CORTICOGRAPHY 2006 temporal lobectomy IL NEUROPLASTY &/TRANSPOSITION ULNAR NERVE ELBOW 1989 ROTATOR CUFF REPAIR 2015 arthroscopic torn rotator cuff and bicep SHOULDER SURGERY Right shoulder impingement SPINAL FUSION 1972, 1998 TOTAL SHOULDER ARTHROPLASTY Right 03/2015 TRIGGER FINGER RELEASE Right 2014 TUBAL LIGATION 1990 TUMOR REMOVAL 1981 from foot Social History Tobacco Use Smoking status: Never Smokeless tobacco: Never Substance Use Topics Alcohol use: Never Comment: caffeine: 1-2 cups per day coffee, tea Drug use: Never Family History Problem Relation Name Age of Onset Heart disease Mother Mother Heart disease Father Father Cancer Sibling Other (suicide) Nephew Depression: Not at risk (08/04/2020) Received from [employer], [employer] PHQ-2 Total Score: 0 REVIEW OF SYMPTOMS: [...] Oriented to person, place and time. Recent andremote memory are intact. Speech is normal. Language [...] reflexes: Roberto's absent. Ankle clonus absent. Coordination Iamwum-me-ncad, rapid alternating movements and wvhh-xx-ugsx normal bilaterally without dysmetria. Gait Normal casual, toe, heel and tandem gait. Romberg is absent. PROCEDURE: Brachial Plexus injection After explaining the risks, complications, and benefits of the procedure, the patient was seated inthe chair. Allergies were reviewed, the consent was signed. The bilateral region posterior to the clavicle is identified and the most tender area is marked for injection then cleaned using sterile technique, and surface anesthetic; a 25 gauge 1 1/2 spinal needle was advanced and the patient receiv ed 3 cc of Bupivacaine 0.50% and 1 [...] by mouth in the morning and 1 tablet(800 mg) at noon and 1 tablet (800 [...] the injections if needed. documented in this encounterSt. Louis Children's [id number] Telephone encounter Note* Telephone Encounter - Tejal Correa - 09/17/2024 11:02 AM EST Patient left voicemail requesting refill of Clondazepam be sent to [email or web address] in [place] please. [facility] [id number] Miscellaneous Notes* Telephone Encounter - Tejal Correa - 09/17/2024 11:02 AM EST Patient left voicemail requesting refill of Clondazepam be sent to [email or web address] in [place] please. documented in this [facility]08[facility]26[facility] History of Present illness Narrative* Florin Burgos MD - 07/05/2024 3:50 PM EDT Images from the original note were not included. CHIEF COMPLAINT REASON FOR VISIT : Epilepsy follow up HPI: Kristin Null is a 63 y.o. female who presents for Epilepsy follow up. She is feeling some better.She is having dizzy spells and fatigue. She [...] (BUSPAR) 10 mg, Oral, Daily calcium carbonate (Os-Asa) 1250 (500 Ca) MG tablet Every 12 [...] Cervical stenosis of spinal canal 05/21/2018 Depression ([facility]) Dizziness 08/08/2013 Epilepsy ([facility]) 09/16/2017 Fatigue 05/21/2018 Headache 11/19/2011 History of being hospitalized 08/2005 [facility] x5 days for double pneumonia Insomnia 07/14/2018 Lack of coordination 08/08/2013 Malaise and fatigue 02/15/2014 ADRIANA (obstructive sleep apnea) 05/21/2018 Paresthesias 05/21/2018 Radicular pain in left arm 05/21/2018 Right shoulder pain Seizure disorder ([facility]) 06/07/2009 Sleep apnea 10/24/2015 Thyroid disease ([facility]) Vitamin D deficiency 01/25/2013 Past Surgical History: Procedure Laterality Date BACK SURGERY 1972, 1998 BIOPSY VAGINAL 2020 cyst CARPAL TUNNEL RELEASE Right 1984 CERVICAL DISC ARTHROPLASTY 10/28/2022 C3/4/5 Dr. Cruz CERVICAL FUSION 09/02/2022 C5-C6 - Dr. Cruz and 04/16 CHOLECYSTECTOMY CYST REMOVAL Right breast - 1989, 1990 KNEE SURGERY Left for meniscus and ACL tear OTHER SURGICAL HISTORY sialendoscopy PARATHYROIDECTOMY [place] KNEE SCOPE,DIAGNOSTIC Bilateral IL LOBECTOMY TEMPOR CORTICOGRAPHY 2006 temporal lobectomy [place] NEUROPLASTY &/TRANSPOSITION ULNAR NERVE ELBOW 1989 ROTATOR [...] Depression: Not at risk (08/04/2020) [facility] Total Score: 0 REVIEW OF SYMPTOMS: [...] Oriented to person, place and time. Recent andremote memory are intact. Speech is normal. Language [...] reflexes: Roberto's absent. Ankle clonus absent. Coordination Edxflm-gv-konj, rapid alternating movements and zyzp-gd-vudj normal bilaterally without dysmetria. Gait Normal casual, toe, heel and tandem gait. Romberg is absent. PROCEDURE: NONE ASSESSMENT AND PLAN: Diagnoses and all orders for this visit: Focal epilepsy (CMS/HCC) - gabapentin (Neurontin) 800 MG tablet; Take 1 tablet (800 mg) by mouth in the morning and 1 tablet(800 mg) at noon and 1 tablet (800 [...] and interactions of medications. documented in this encounterSt. [facility] [id number] Telephone encounter Note* Telephone Encounter - Shaina Dodge - 06/25/2024 10:48 AM EDT Patient called stating her self pay diabetic shoes were to big once she picked them up 06/24 and tried them on at home. She said she just wants to return them. [facility] [id number] Miscellaneous Notes* Telephone Encounter - Shaina Dar - 06/25/2024 10:48 AM EDT Patient called stating her self pay diabetic shoes were to big once she picked them up 06/24 and tried them on at home. She said she just wants to return them. documented in this encounterSt. [facility] [id number] History of Present illness Narrative* Florin Burgos MD - 12/25/2023 3:40 PM EST Patient is here for a follow up. She states she had a bad headache today. She has pressure. She states she has not had any seizures. Patient does need B12 injection today in left hip. Patient tolerated injectioSubjective Kristin Null is a 63 y.o. female. HPI BP 147/90 (BP Location: Left arm, Patient Position: Sitting, BP Cuff Size: Adult) Wt 190 lb BMI37.11 kg/m Allergies Allergen Reactions Acetaminophen Other Reaction(s): [...] Disp: , Rfl: beta carotene (Vitamin A) 45293 units capsule, Take 25,000 Units by mouth., Disp: , Rfl: Biotin 1000 MCG chewable tablet, every 12 (twelve) hours., Disp: , Rfl: busPIRone (Buspar) 10 MG tablet, Take 1 tablet (10 mg) by mouth in the morning and 1 tablet (10 mg)before bedtime., Disp: 180 tablet, Rfl: 3 calcium carbonate (Os-Asa) 1250 (500 Ca) MG tablet, every 12 [...] BIPAP Hose) misc, BIPAP mask, heating tubing andsupplies for 1 year., Disp: 1 each, Rfl: [...] Cervical stenosis of spinal canal 05/21/2018 Depression ([facility]) Dizziness 08/08/2013 Epilepsy ([facility]) 09/16/2017 Fatigue 05/21/2018 Headache 11/19/2011 History of being hospitalized 08/2005 [facility] x5 days for double pneumonia Insomnia 07/14/2018 Lack of coordination 08/08/2013 Malaise and fatigue 02/15/2014 ADRIANA (obstructive sleep apnea) 05/21/2018 Paresthesias 05/21/2018 Radicular pain in left arm 05/21/2018 Right shoulder pain Seizure disorder ([facility]) 06/07/2009 Sleep apnea 10/24/2015 Thyroid disease ([facility]) Vitamin D deficiency 01/25/2013 Past Surgical History: Procedure Laterality Date BACK SURGERY 1972, 1998 BIOPSY VAGINAL 2020 cyst CARPAL TUNNEL RELEASE Right 1985 CERVICAL DISC ARTHROPLASTY 10/28/2022 C3/4/5 Dr. Cruz CERVICAL FUSION 09/02/2022 C5-C6 - Dr. Cruz and 04/16 CHOLECYSTECTOMY CYST REMOVAL Right breast - 1989, 1990 KNEE SURGERY Left for meniscus and ACL tear OTHER SURGICAL HISTORY sialendoscopy PARATHYROIDECTOMY [place] KNEE SCOPE,DIAGNOSTIC Bilateral IL LOBECTOMY TEMPOR CORTICOGRAPHY 2006 temporal lobectomy IL NEUROPLASTY &/TRANSPOSITION ULNAR NERVE ELBOW 1989 ROTATOR [...] equal, round, and reactive to light and accommodation,both directly and consensually. Visual suarez were full [...] in all four extremities, including at least criminal court judge, finger abductors, biceps, triceps, deltoid, toe flexors [...] and spasticity are not evident. Arm swing isnormal. Toe, heel, and tandem walking are performed [...] partial seizure with impairment of consciousness (CMS/HCC) Kritsin Null is a 63 y.o. year old [...] No other concerns today. documented in this encounterSt. Louis Children[facility] [id number] Hospital Discharge instructions* Discharge Instructions* Ashly Patterson RN - 11/06/2023 1:22 PM EST Call office for appointment in 2 weeks. Activity as tolerated. May shower 24 hours. Call for signs of infection, fever, chills, or increasing pain at surgical site. Take medication as prescribed. Activity You have had anesthesia today Do not drive, operate heavy equipment, consume alcoholic beverages, or make any important decisionsfor 24 hours If you are taking pain medication: Do not drive or consume alcohol. Take your time changing positions today. You may feel light headed or dizzy if you move too quickly. Continue your home medications as ordered by your physician. Diet You can eat your normal diet when you feel well. You should start off with bland foods like chickensoup, toast, or yogurt. Then advance as tolerated. Drink plenty of fluids (unless your doctor tells you not to). Your urine should be very lightly colored without a strong odor. documented in this encounterB[facility]12[facility] History of Present illness Narrative* Cecily Kraft RN - 10/31/2023 10:25 AM EST DAY OF SURGERY/PROCEDURE GUIDELINES As a patient at the [facility], you can expect quality medical and nursing care that is centered on your individual needs. It is our goal to make your surgical experience as comfortable and excellent as possible. The following instructions are general guidelines, if any information on this sheet is different from what your doctor has instructed you to do, please follow your doctor's instructions. Please arrive on 11/06 @ 1100 am Enter through entrance C. Check in at registration Upon arrival you will be taken to the pre-operative area to get ready for surgery, your family willstay in the waiting room and visit with [...] your surgery/procedure (Hibiclens if directed) Do not applyany lotions. [place] your teeth, but do not swallow any [...] will need someone stay with you at homefor the first 24 hours following your surgery. This is due to the anesthesia and the medication given to you during surgery and recovery. documented in this encounterBON [facility]12-20-2022 History of Present illness Narrative* La Albert, PT - 10/29/2022 11:57 AM EST Physical Therapy Facility/Department: [address] ORTHO/MED SURG Physical Therapy Initial Assessment [...] (2014); Parotidectomy (Left, 08/07/2020); Colonoscopy; Breast biopsy; Uppergastrointestinal endoscopy; Knee arthroscopy (Right, 02/12/2021); Knee arthroscopy [...] Treatment Recommendations: Strengthening, Functional mobility training, Endurance training,Stair training, Gait training, Safety education & training [...] Within Functional Limits Subjective Subjective: Pt c/o 10 c spine pain Social/Functional History Social/Functional History [...] Ambulation Assistance: Independent Transfer Assistance: Independent Active Punch Box Tender: Yes Mode of Transportation: Car Occupation: On [...] AM-PAC Inpatient Mobility Raw Score : 20 (10/29/22 113) AM-PAC Inpatient T-Scale Score : 47.67 (10/29/22 113) Mobility Inpatient CMS 0-100% Score: 35.83 (10/29/22 113) Mobility Inpatient [facility] G-Code Modifier : CJ (10/29/221138) Tinneti Score [...] 0815 Time Out 0845 Minutes 30 La Albert, PT * Elda Herring - 10/29/2022 10:24 AM EST CLINICAL PHARMACY NOTE: MEDS TO BEDS Total # of Prescriptions Filled: 2 The following medications were delivered to the patient: Cephalexin gabapentin Additional Documentation: * Maria Guadalupe Dos Santos MD - 10/29/2022 9:23 AM EST Images from the original note were not included. [facility] Office: [phone] Rakesh Vu DO, Norman Almeida DO, Feng Castle DO, Raul Noe DO, Margarita Najera MD, Suzette Barton MD, Romie Ashton MD, Maria Guadalupe Dos Santos MD, Xu Monahan MD, Joey Angeles MD, Rey Rocha DO, Renetta Hi MD, Link Spicer DO, Jose Manuel Kear[place] MD, Harlan Dye MD, Luz Vu DO, Radha Vuong MD, Magan Gant MD, López Casrtejon DO, Jossie Dunham MD, Bernarda Wylie MD, Erica Preera MD, Marjorie Ricci MD, Mukul Carter DO, Facundo Caputo MD, Elmo Seth MD, Sonam Burrell CNP, Sabina Gottlieb CNP, Nicole Cody CNP, Tim Buckner, CHEVY, Jennifer Zarate DNP, Kate Srivastava CNP, Sangeeta Martinez CNP, Shanita Mansfield CNP, Allie Jimenes CNP, Alyson Orona CNP, LEAH BhatiaC, Cynthia Church, FLIGHT CONTROLS ENGINEER, Nenita Marion, ELECTRONICS WORKER, Anaid Mendiola, ELECTRONICS WORKER [facility] IN-PATIENT SERVICE [facility] Progress Note 10/29/2022 9:23 AM Name: Kristin Null Acct: [id number] Room: [address] [place] [address] Day: 1 Admit Date: 10/28/2022 5:56 AM [...] notes were reviewed,from overnight shift and morning updateswere noted and discussed with the nurse Brief History: Per my partner Mrs. Kristin Null is a 62 year old male with a significant past medical history of hypertension, type 2 diabetes, epilepsy, insomnia who initially presented to the hospital for anterior cervical discarthroplasty. Has been complaining of neck pain and bilateral shoulder pain for years with associated headaches. Status post anterior cervical disc arthroplasty C3-C4 and C4-C5 today currently postopday 0. Medicine was consulted for medical management. [...] Sun Fri carvedilol 6.25 mg Oral BID WC [...] chloride flush, sodium chloride, morphine OR morphine, ondansetronOR ondansetron, polyethylene glycol, oxyCODONE- acetaminophen, oxyCODONE-acetaminophen, glucose,dextrose bolus OR dextrose bolus, glucagon (rDNA), dextrose [...] RDW, PLT, MPV, SEDRATE, CRP, INR, DDIMER, [id number], LABABSO in the last 72 hours. Invalid [...] results found for: POCPH, PHART, PH, POCPCO2, TVR0LQU, PCO2, POCPO2, PO2ART, PO2, POCHCO3, GKI4COG, HCO3, NBEA, PBEA, BEART, BE, THGBART, THB, QXL4OPT, [id number], Z4ILHPYC, O2SAT, FIO2 No results found for: SPECIAL [...] of insulin (HCC) 10/28/2022 Yes Seizure disorder ([facility]) 10/28/2022 Yes ADRIANA treated with BiPAP 10/28/2022 [...] Guadalupe Dos Santos MD 10/29/2022 9:23 AM * Endy Cruz MD - 10/29/2022 3:50 AM EST Orthopedic Progress Note Patient: Kristin Null Date [...] or Lacerations. Skin Intact. Dressings C/D/I. Chronic dysthesiato forefoot present. Compartments Soft. Ulnar/Median/AIN/PIN/Radial Motor Intact. [...] Reid Mcgregor D.O. Orthopedic Surgery Resident, PGY-1 [place], [place] PGY-3 Addendum Patient seen and examined. [...] steroid for few days. Will add tizandidine. * Brandi Hennessy - 10/28/2022 4:47 PM EST CLINICAL PHARMACY NOTE: MEDS TO BEDS Total # of Prescriptions Filled: 1 The following medications were delivered to the patient: Percocet 5-325mg Additional Documentation: delivered to patient in room 240 10/28 at 4:42pm. Co- pay $6.61 yoo. documented in this encounterPAGE [facility]PITAL [facility] Phone: [phone] 280-201512-19-2022 Hospital Discharge instructions* Discharge Instructions* Deloris Chong RN - 10/28/2022 10:16 AM [...] his office 10-14 days after surgery. Call [phone] to schedule/confirm or with any questions/concerns. * Attachments The following attachments cannot be sent through Care Everywhere. * cephalexin (Somali) * acetaminophen and oxycodone (Somali) documented in this encounterPAGE [facility]OSPITAL [facility] Phone: [phone] 315-443310-26-2022 History of Present illness Narrative* Jose Manuel Kearney MD - 09/04/2022 12:32 PM EDT Images from the original note were not included. [facility] Office: [phone] Rakesh Vu DO, Norman Almeida DO, Feng [...] Caputo MD, Elmo Seth MD, Sonam Burrell, ELECTRONICS WORKER, Sabina Gottlieb, ELECTRONICS WORKER, Nicole Cody, ELECTRONICS WORKER, Tim Buckner, ELECTRONICS WORKER, Jennifer Zarate, DNP, Kate Srivastava, ELECTRONICS WORKER, Sangeeta Martinez, ELECTRONICS WORKER, Shanita Mansfield, ELECTRONICS WORKER, Allie Jimenes, ELECTRONICS WORKER, Alyson Orona, ELECTRONICS WORKER, Vini Palumbo PA-C, Cynthia Church, FLIGHT CONTROLS ENGINEER, Marianna Gimenez, DNP, Nenita Marion, ELECTRONICS WORKER, Jazzy Bejarano, ELECTRONICS WORKER, Anaid Mendiola, ELECTRONICS WORKER [facility] IN-PATIENT SERVICE [facility] Progress Note 09/04/2022 12:32 PM Name: Kristin Null Acct: [id number] Room: 0236/0236-01 Day: 0 Admit Date: 09/02/2022 [...] 17 Ht 5' (1.524 m) Wt 164 lb(74.4 kg) SpO2 96% BMI 32.03 kg/m Temp [...] CL, CO2, GLUCOSE, BUN, CREATININE, MG, ANIONGAP, LABGLOM,GFRAA, CALCIUM, CAION, PHOS, PSA, PROBNP, TROPHS, CKTOTAL, CKMB, CKMBINDEX, MYOGLOBIN, DIGOXIN, LACTACIDWB in the last 72 hours. Recent Labs 09/03/22 0652 09/03/22 1105 09/03/22 1553 09/03/22195509/04/22 0639 09/04/22 1111 POCGLU 140* 122* 189* 163* 127* 163* ABG:No results found for: POCPH, PHART, PH, POCPCO2, KGZ0JGC, PCO2, POCPO2, PO2ART, PO2, POCHCO3, AHN3OHF, HCO3, NBEA, PBEA, BEART, BE, THGBART, THB, [id number], IUYY2OKG, J6XBPHFN, O2SAT, FIO2 No results found for: SPECIAL [...] mellitus, without long-term current use of insulin ([facility]) 09/02/2022 Yes Seizure disorder ([facility]) 09/02/2022 Yes Current chronic use of systemic steroids 09/02/2022 Yes Acute respiratory failure with hypoxia ([facility]) 09/03/2022 Yes ADRIANA treated with BiPAP 09/03/2022 Yes Primary hypertension 09/03/2022 Yes Plan: Acute respiratory failure postop-resolved, CT PE scan was done as patient was desaturating multipletimes yesterday, shows atelectasis, no pulmonary embolism, encourage patient for incentive spirometry, patient did not qualify for home oxygen on oxygen therapy protocol. ADRIANA-use BiPAP at night or daytime naps Spinal stenosis status post cervical spinal fusion Type 2 diabetes mellitus-resume home meds on discharge, monitor blood sugars and cover with slidingscale Continue home antiepileptics Hypertension- resume coreg, follow-up with PCP to adjust dose if blood pressure elevated above 140 systolic Urinary dysuria is improving, monitor off antibiotics Okay to start anticoagulation on postop day 5 Ensure pain control Patient is medically stable for discharge if vitals stable. Jose Manuel Kearney MD 09/04/2022 12:32 PM * LUCIA DAS - 09/04/2022 10:44 AM EDT Home Oxygen Evaluation Home Oxygen Evaluation completed. Patient is on 0 liters per minute via room air. Resting SpO2 = 93% Resting SpO2 on room air = 93% SpO2 on room air with exercise = 90% Nocturnal Oximetry with patient on room air is recommended is SpO2 is between 89% and 95% (requiresadditional order). LUCIA DAS 10:44 AM * ANA Ho - 09/04/2022 9:45 AM EDT Occupational Therapy Facility/Department: [address] ORTHO/MED SURG Occupational Therapy Daily Treatment [...] Recommendations: Functional mobility training, Balance training, Pain management,Safety education & training, Patient/Caregiver education & training, [...] in bed at start of session and retiredto chair at sessin end with chair alarm [...] open all containers demo [address] judge Grooming: Stand by assistance;Setup Grooming Skilled Clinical Factors: oral care, face washing and hand hygiene facilitated standing atsink with RW demo 0 LOB and [address] judge LE Dressing: Stand by assistance;Setup;Verbal cueing LE [...] session pt limited per pain and fatigue. C- collar donned prior to [place] entrance and remained [...] hand and foot placement; balance maintaince; walker management;c-collar precautions-F carry over Education Method: Demonstration;Verbal Education Outcome: Continued education needed AM-PAC Score AM-PAC Inpatient Daily Activity Raw Score: 19 (09/04/22943) AM-[facility] Inpatient ADL T-Scale Score : 40.22 (09/04/22943) [...] Code Treatment Minutes: 39 Minutes GRABIEL Ho * Praneeth Currie RN - 09/04/2022 12:05 AM EDT Patient refused neurontin 800mg at bed time. She said that she takes it at home as 1600mg at bed time. Informed ortho service about it but still waiting for final order. Will continue monitoring patient. 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 Pt agreeable to OT eval. Pt reports 6/10 pain in upper neck [...] Walker, rolling, Cane, Sock aid, Long-handled shoehorn, Switch House Operator, Grab bars Has the patient had two or more falls in the past year or any fall with injury in the past year?: No Receives Help From: Family ADL Assistance: Independent Homemaking Assistance: Independent Homemaking Responsibilities: Yes Ambulation Assistance: Independent Transfer Assistance: Independent Active Punch Box Tender: Yes Mode of Transportation: SUV Occupation: On disability Type of Occupation: disabled Leisure & Hobbies: Likes biking Additional Comments: Pt reports no support at home. 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 Pt Mod A sup<>sit due to increasedneck/shoulder pain following procedure. Pt unable to don/doff [...] Within functional limits Cognition Overall Cognitive Status: [facility] Cognition Comment: Pt hyperverbal throughout session Orientation Overall Orientation Status: Within Functional Limits Education Given To: Patient;Family Education Provided: Role of Therapy;Plan of Care;ADL Adaptive Strategies;Transfer Training;Precautions Education Method: Verbal Education Outcome: Verbalized understanding AM-PAC Score AM-PAC Inpatient Daily Activity Raw Score: 17 (09/03/221443) AM-PAC Inpatient ADL T-Scale Score : 37.26 (09/03/221443) ADL Inpatient CMS 0-100% Score: 50.11 (09/03/221443) ADL Inpatient CMS G-Code Modifier : CK (09/03/221443) Goals Short [...] Treatment Minutes: 46 Minutes Shanon Ellison OTR/L * Jose Manuel Kearney MD - 09/03/2022 2:28 PM EDT Images from the original note were not included. [facility] Office: [phone] Rakesh Vu DO, Norman Almeida DO, Feng Castle DO, Raul Noe DO, Margarita Najera MD, Suzette Barton MD, Romie Ashton MD, Maria Guadalupe Dos Santos MD, Xu Monahan MD, Joey Angeles MD, Rey RochaDO, Renetta Hi MD, Link Spicer DO, Jose Manuel Kearney MD, Harlan Dye MD, Luz Vu DO, Radha Vuong MD, Magan Gant MD, López Castrejon DO, Jossie Dunham MD, Bernarda Wylie MD, Erica Perera MD, Marjorie Ricci MD, Mukul Carter DO, Facundo Caputo MD, Elmo Seth MD, Sonam Burrell, ELECTRONICS WORKER, Sbaina Gottlieb, ELECTRONICS WORKER, Nicole Cody, ELECTRONICS WORKER, Tim Buckner, ELECTRONICS WORKER, Jennifer Zarate, DNP, Kate Srivastava, ELECTRONICS WORKER, Sangeeta Martinez, ELECTRONICS WORKER, Shanita Mansfield, ELECTRONICS WORKER, Allie Jimenes, ELECTRONICS WORKER, Alyson Orona, ELECTRONICS WORKER, RANDY Bhatia-C, Cynthia Church, FLIGHT CONTROLS ENGINEER, Marianna Gimenez, DNP, Nenita Marion, ELECTRONICS WORKER, Jazzy Bejarano, ELECTRONICS WORKER, Anaid Mendiola, ELECTRONICS WORKER [facility] IN-PATIENT SERVICE [facility] Progress Note 09/03/2022 2:46 PM Name: Kristin Null Acct: [id number] Room: [address] [place] [address] Day: 0 Admit Date: 09/02/2022 6:56 AM [...] C), Max:98.3 F (36.8 C) Recent Labs 09/02/22214509/03/2265109/03/22 1105 POCGLU 132* 140* 122* I/O (24Hr): [...] CL, CO2, GLUCOSE, BUN, CREATININE, MG, ANIONGAP, LABGLOM,GFRAA, CALCIUM, CAION, PHOS, PSA, PROBNP, TROPHS, CKTOTAL, CKMB, CKMBINDEX, MYOGLOBIN, DIGOXIN, LACTACIDWB in the last 72 hours. Recent Labs 09/02/22214509/03/2252 09/03/22 1105 POCGLU 132* 140* 122* ABG:No results found for: POCPH, PHART, PH, POCPCO2, RWO6EIZ, PCO2, POCPO2, PO2ART, PO2, POCHCO3, GLK1DVM, HCO3, NBEA, PBEA, BEART, BE, THGBART, THB, NJQ8AXJ, UUKB9PMN, K2RSDADR, O2SAT, FIO2 No results found for: SPECIAL [...] mellitus, without long-term current use of insulin ([facility]) 09/02/2022 Yes Seizure disorder ([facility]) 09/02/2022 Yes Current chronic use of systemic steroids 09/02/2022 Yes Acute respiratory failure with hypoxia ([facility]) 09/03/2022 Yes ADRIANA treated with BiPAP 09/03/2022 [...] Jose Manuel Kearney MD 09/03/2022 2:46 PM * Brandi Hennessy - 09/03/2022 12:20 PM EDT CLINICAL PHARMACY NOTE: MEDS TO BEDS Total # of Prescriptions Filled: 3 The following medications were delivered to the patient: Colace 100mg Tizanitdine 2mg Percocet 5-325mg Additional Documentation: delivered to patient in room 236 09/03 at 12:14pm. Co- pay $12.86 yoo. 1 visitor at time of delivery. * La Albert, PT - 09/03/2022 11:47 AM EDT Physical Therapy Facility/Department: [address] ORTHO/MED SURG Physical Therapy Initial Assessment [...] (2014); Parotidectomy (Left, 08/07/2020); Colonoscopy; Breast biopsy; Uppergastrointestinal endoscopy; Knee arthroscopy (Right, 02/12/2021); Knee arthroscopy [...] Ambulation Assistance: Independent Transfer Assistance: Independent Active Punch Box Tender: Yes Mode of Transportation: Netadmin Occupation: On disability Leisure & Hobbies: Likes [...] Mobility Inpatient CMS 0-100% Score: 0 (09/03/22 114) Mobility Inpatient CMS G-Code Modifier : CH [...] In Time Out Minutes La Albert, PT * Endy Cruz MD - 09/03/2022 3:44 AM EDT Orthopedic Progress Note Patient: Kristin Null Date [...] SOB, N/V, dysuria. Is BM/flatus +. Has beenable to ambulate to restroom by self. Vitals reviewed, afebrile Objective: Vitals: 09/03/22 0015 BP: (!) 157/90 Pulse: (!) 102 Resp: 18 Temp: 98.2 F (36.8 C) SpO2: 95% Gen: NAD, cooperative Cardiovascular: Regular rate Respiratory: No acute respiratory distress Musculoskeletal: Cervical / BUE: Dressings are clean, dry, and intact without strike-through. C- collar is in place in good repair. Tender [...] days from surgery - Please page Ortho strategic consultant with any questions Theresa Carvajal, Orthopedic Surgery Resident, PGY-1 [place], [place] PGY-3 Addendum Patient seen and examined. Agree with Dr. Carvajal's history, physical examination, assessment andplan except where changes were made above (may be highlighted by [employer] author selection feature). Patient has median nerve [...] ok as is sensitive to chlorhexidine scrub. * Praneeth Currie RN - 09/03/2022 1:13 AM EDT Informed ortho resident on progression of tingling and numbness in patient's left fingers. Seen andexamined by ortho resident. Will just watch out for progression of symptoms and weakness of the left arm per ortho resident. Will continue monitoring patient. * Praneeth Currie RN - 09/03/2022 1:11 AM EDT Updated [facility] CR[facility] on repeat blood pressure of 157/90. Still waiting for dilantin 30mg at bed time coveragefor Friday. Will continue to monitor patient. * Praneeth Currie RN - 09/03/2022 12:37 AM EDT Patient took her own dose of neurontin, clonazepam and dilantin. Told her that still waiting for anorder but refused to do so. * Praneeth Currie RN - 09/02/2022 11:16 PM EDT Referred to [facility] around 22:40 patient's blood pressure of 177/89. Still waiting for response. Will continue monitoring patient. * Kandace Pulliam RN - 08/30/2022 9:02 AM EDT Neuro clearance received for procedure scheduled 09/02/2022 [facility] Phone: [phone]) 487-358610-24-2022 Hospital Discharge instructions* Discharge Instructions* Theresa Carvajal DO - 09/02/2022 8:56 AM [...] his office 10-14 days after surgery. Call [phone] to schedule/confirm or with any questions/concerns. [facility] Phone: 1(305) 738-895710-19-2022 History of Present illness Narrative* Sheree Brown APRN - [place] - 08/28/2022 10:00 AM EDT Anesthesia Focused Assessment Hx of anesthesia complications: [...] 1984 Dr. Enrico Burgos Neurologist MARÍA Branham Ma. Has not had a seizure in at least 5 years Gall stones 2006 History of blood transfusion 1972 during spinal fusion surgery. no problems Numbness around mouth left side, chronic, states had mri brain, and following with neuro closely ADRIANA (obstructive sleep apnea) 2006 BiPap machine. Managed by Dr. Burgos Neurologist MARÍA Scott Ma PONV (postoperative nausea and vomiting) Seasonal allergies Shoulder pain Wellness examination 01/24/[address] Niki Pearson [place], [place]; last visit March 2022 Patient was [...] 08/28/2022 at 12:45 PM documented in this encounterBON [facility] Phone: 1(194) 319-835910-18-2022 Hospital Discharge instructions* Discharge Instructions* TIFFANIE Menendez CNP - 08/27/2022 4:01 PM [...] too late) may result in injury to you,or your surgery may need to be rescheduled. [...] Surgery/Procedure As a patient at [facility] you can expect quality medical and nursing care that is centered on your individual needs. Our goal is to make your surgical experience as comfortableas possible Directions to the Surgery Center The surgery Center at [facility] is located in the Emergency Room parking lot on [facility] or there is additional parking across the street. The address is [address] [place] [address]. Please check in at the Surgery Center [...] list with dosages and frequencies. Please verify yourlist with your medications at home or bring [...] at home. If you are staying overnight withus, please bring a SMALL bag of personal items. We cannot accommodate large items, like suitcases. If you are going home after anesthesia or sedation then you must have a responsible adult with you to take you home and to be with you for the first 24 hours after surgery. If you do not have someoneto stay with you your surgery might get cancelled. Please contact your surgeon's office to see if other arrangements can be made if you can not find someone to stay with you. If you have any other questions on the day of surgery please contact [phone] or [phone] If you have any other questions regarding your procedure/surgery please call your surgeon's office. documented in this encounterPAGE [facility] Phone: 1(298) 837-893008-08-2022 Hospital Discharge instructions* Discharge Instructions* Shanon Crawford DO - 06/17/2022 8:24 PM EDT You have yeast infection. Please use your prescriptions will be as prescribed. Please follow-up with [facility]. Please return the emergency room if you develop any worsening symptoms, abdominal pain, fevers, anyother concerning symptoms. documented in this encounterPAGE [facility] Phone: 1(475) 119-910205-21-2022 NoteChief Complaint consultation for sebaceous cyst HPI Staff 61 year old female presents on consultation from Dr. Pearson for sebaceous cyst left arm. History of Present Illness 61 yo female with h/o htn, hyperlipidemia, seizure d/o, ADRIANA, anxiety/depression; referred for possible cyst left forearm; patient reports 1 month h/o painful, swollen lump on right forearm; occurred when she was in [place], got a bug bite; area was swollen [...] swallowing difficulties, no hearing loss, no ear infection(s),no nose bleeds. Cardiovascular: normal blood pressure, no [...] bite (nonvenomous) of left upper arm, sequela (S40.392S: Insect bite (nonvenomous) of left upper arm, [...] 1 tab(s), Oral, Daily Nasonex 50 mcg/inh [place], 1 spray(s), Nasal, BID, PRN traZODONE 50 [...] Mother. Osteoporosis: Mother. Ovarian cancer: Mother. Seizure: Brother.[facility] HospitalComment on above:Result Comment: Electronically Signed By: GLADYS NAZARIO, Luz Lopez\Date and Time Signed: 03/30/22 11:25 [id number] NotePROCEDURE: XR FOOT RT MIN 3 VIEWS COMPARISON: None. HISTORY: Pain in right foot FINDINGS: BONES:No acute fracture or dislocation. Mild degenerative changes with marginal osteophyte formation SOFT TISSUES:Negative. No visible soft tissue swelling. EFFUSION:None visible. OTHER: Negative. IMPRESSION: Mild degenerative changes, no acute fracture Electronically authenticated by: ROCÍO REYES Date: 2022-03-21 07:27[facility] note No data available for this section General Surgery [place] Evaluation noteNo assessment information available [facility] Work Phone: Evaluation note* Diagnosis Yeast infection involving the vagina and surrounding area- Primary Candidiasis of vulva and vagina documented in this encounter [employer] Phone: evaluation note* Diagnosis S/P cervical spinal [...] Atelectasis Pulmonary collapse documented in this encounter [facility] Phone: evaluation note* Diagnosis Cervical stenosis of spinal canal- Primary Spinal stenosis in cervical region Cervical stenosis of spinal canal Spinal stenosis in cervical region S/P cervical spinal fusion Arthrodesis status ADRIANA treated with BiPAP Primary hypertension Unspecified essential hypertension Seizure disorder (HCC) Unspecified epilepsy without mention of intractable epilepsy Type 2 diabetes mellitus, without long-term current use of insulin ([facility]) Insomnia Insomnia, unspecified documented in this encounter [facility]: evaluation note* Diagnosis Acute postoperative pain- Primary Other acute postoperative pain Acute carpal tunnel syndrome of right wrist documented in this encounter [facility]ite[facility] HEALTHEvaluation note* Diagnosis Acute carpal tunnel syndrome [...] Other convulsions [facility] Diagnosis Generalized seizure disorder (HCC) Unspecified epilepsy without mention of intractable epilepsy Focal epilepsy (HCC) [facility]* Diagnosis Cervical radiculopathy- Primary Brachial neuritis or radiculitis nos Focal epilepsy (HCC) Seizure (HCC) Other convulsions Generalized seizure disorder (HCC) Unspecified epilepsy without mention of intractable epilepsy Obstructive sleep apnea syndrome Obstructive sleep apnea (adult) (pediatric) documented in this encounter [facility] Dis[facility] instructions No data available for this section General Surgery Daniel Assessments Diagnosis Preop testing- Primary Preoperative examination, unspecified Diagnosis Post-op pain- Primary Other acute postoperative pain Advance Directives No Advanced Directives Records FoundDocuments on File TypeDate RecordedPatient RepresentativeExplanationACP-Advance DirectiveACP- Advance Directive01/29/2021 1:55 PMACP-Power of AttorneyACP-Power of Prepress Operator 01/29/2021 1:55 PMTypeDate RecordedPatient RepresentativeExplanationACP-Advance DirectiveACP-Advance Directive01/29/2021 1:55 PMACP-Power of AttorneyACP-Power of Attorney01/29/2021 1:55 PMTypeDate RecordedPatient RepresentativeExplanationACP- Advance Directive01/29/2021 1:55 PMACP-Power of Attorney01/29/2021 1:55 PMTypeDate RecordedPatient RepresentativeExplanationACP-Advance Directive01/29/2021 1:55 PM ACP-Power of Attorney01/29/2021 1:55 PMCode StatusDate ActivatedDate Inactivated CommentsFull Code09/02/2022 1:06 PMCode StatusDate ActivatedDate Inactivated CommentsFull Code10/28/2022 10:14 AMFull Code09/02/2022 1:06 09/04/2022 5:56 PMCode StatusDate ActivatedDate InactivatedCommentsFull Code10/28/2022 10:14 AM 10/29/2022 6:10 PMCode StatusDate ActivatedDate InactivatedCommentsFull Code 09/02/2022 1:06 PM10 5:56 PM Summary Purpose Family History No [...] their office 10-14 days after surgery. Call [phone] to schedule/confirm. No alcoholic beverages, no driving [...] section and content) DATE CREATED AUTHOR 02/10/2021 [facility] DATE CREATED AUTHOR AUTHOR'S ORGANIZ ATION 03/31/2022 [facility] DATE CREATED AUTHOR AUTHOR'S ORGANIZ ATION 04/13/2022 [facility] DATE CREATED AUTHOR AUTHOR'S ORGANIZ ATION 04/26/2022 [facility] [employer] DATE CREATED AUTHOR AUTHOR'S ORGANIZ ATION 04/26/2022 [facility] DATE CREATED AUTHOR AUTHOR'S ORGANIZ ATION 03/19/2023 [facility] DATE CREATED AUTHOR AUTHOR'S ORGANIZ ATION 02/12/2024 [facility] DATE CREATED AUTHOR AUTHOR'S ORGANIZ ATION 06/03/2025 [facility] EPIC DATE CREATED AUTHOR AUTHOR'S ORGANIZ ATION 09/19/2025 [facility] Reason for Visit (unrecogniz ed section and content) StatusReasonSpecialtyDiagnoses / ProceduresReferred By ContactReferred To Contact Diagnoses Acute medial meniscal tear Lateral meniscus tear MEDIAL MENISCAL TEAR, LATERAL MENISCUS TEAR Procedures IL ARTHRS KNE SURG W/MENISCECTOMY MED/LAT W/SHVG IL ARTHRS KNEE W/MENISCECTOMY MED&LAT W/SHAVING KNEE ARTHROSCOPY WITH MENISCECTOMY right Endy Cruz MD [address] [place] [address] [facility] ReasonCommentsGroin SwellingSpecialtyDiagnoses / ProceduresReferred By Contact Referred To Contact Diagnoses 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) STENOSIS OF CERVICAL SPINE WITH MYELOPATHY Procedures IL OFFICE/OUTPT VISIT,PROCEDURE ONLY IL ARTHRODESIS ANT INTERBODY INC DISCECTOMY, CERVICAL BELOW C2 IL ARTHRODESIS ANT INTERBODY INC DISCECTOMY CERVICAL BELOW C2 EA ADDL IL INSJ BIOMCHN DEV INTERVERTEBRAL DSC SPC W/ARTHRD IL ALLOGRAFT FOR SPINE SURGERY ONLY MORSELIZED AUTOGRAFT SPINE SURGERY LOCAL FROM SAME INCISION ANTERIOR CERVICAL DISECTOMY FUSION C5,6 AND C6,7 WITH SSEP MONITORING ( [employer]# LOVE, CONF#[id number] Endy Cruz MD [address] [place] [address] [facility] [address] [place] [address] Referral IDStatusReasonStart DateExpiration DateVisits RequestedVisits [id number] / ProceduresReferred By ContactReferred To Contact Diagnoses 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) Spondylosis CERVICAL STENOSIS WITH MYELOPATHY, SPONDYLOSIS Procedures IL TOTAL DISC ARTHROPLASTY, CERVICAL, SINGLE IL ARTHRODESIS ANT INTERBODY INC DISCECTOMY, CERVICAL BELOW C2 IL ARTHRODESIS ANT INTERBODY INC DISCECTOMY CERVICAL BELOW C2 EA ADDL IL INSJ BIOMCHN DEV INTERVERTEBRAL DSC SPC W/ARTHRD IL ALLOGRAFT FOR SPINE SURGERY ONLY MORSELIZED AUTOGRAFT SPINE SURGERY LOCAL FROM SAME INCISION IL TOTAL DISC ARTHROPLASTY, CERVICAL, SINGLE IL TOT DISC ARTHRP ANT APPR DISC 2ND LEVEL CERVICAL ANTERIOR CERVICAL DISC ARTHROPLASTY C3-4, C4-5 (KYLIE BIOMET MOBI-C, SUPINE) SHORT STAY Endy Cruz MD [address] [place] [address] [facility] [address] [place] [address] Referral IDStatusReasonStart DateExpiration DateVisits RequestedVisits [id number] / ProceduresReferred By ContactReferred To Contact Diagnoses Right carpal tunnel syndrome Right carpal tunnel syndrome [G56.01] Procedures [place] NEUROPLASTY &/TRANSPOS MEDIAN NRV CARPAL TUNNE RIGHT CARPAL TUNNEL RELEASE Endy Cruz MD [address] [id number] [facility] [id number] [place] [phone] Referral IDStatusAgustinaStart DateExpiration DateVisits RequestedVisits [id number] DateCommentsAdvice Only4ReasonComments Seizures Ordered Prescriptions (unrec ognized section and content) PrescriptionSigDispensedRefillsStart DateEnd Date HYDROcodone-acetaminophen (NORCO) 5-325 MG per tablet Indications:Post-op painTake 1 tablet by mouth every 4 hours as needed for Pain for up to 7 days. Intended supply: 7 days. Take lowest dose possible to manage pain 42 tablet /1PrescriptionSigDispensedRefillsStart DateEnd Date HYDROcodone-acetaminophen (NORCO) 5-325 MG per tablet Indications:Yeast infection involving the vagina and surrounding areaTake 1 tablet by mouth every 6 hours as needed for Pain for up to 3 days. 10 tablet phenazopyridine (PYRIDIUM) 100 MG tablet Take 1 tablet by mouth 3 times daily as needed for Pain 10 tablet clobetasol (TEMOVATE) 0.05 % ointment Apply topically 2 times daily as needed (vulvar discomfort) Apply topically 2 times daily. 1 each lidocaine (XYLOCAINE) 5 % ointment Apply topically 3 times daily as needed for Pain Apply topically as needed. 1 each fluconazole (DIFLUCAN) 150 MG tablet Take 1 tablet by mouth once for 1 dose Take after completion of doxycycline and macrobid 1 tablet nystatin (MYCOSTATIN) 815323 UNIT/GM ointment Apply topically 2 times daily. 1 each nitrofurantoin, macrocrystal-monohydrate, (MACROBID) 100 MG capsule Take 1 capsule by mouth in the morning and 1 capsule before bedtime. Do all this for 5 days. 10 capsule / doxycycline hyclate (VIBRA-TABS) 100 MG tablet Take 1 tablet by mouth in the morning and 1 tablet before bedtime. Do all this for 7 days. 14 tablet /rescriptionSigDispensedRefillsStart DateEnd docusate sodium (COLACE) 100 MG capsule Take 1 capsule by mouth 2 times daily 60 capsule / oxyCODONE-acetaminophen (PERCOCET) 5-325 MG per tablet Indications:Post-op painTake 1 tablet by mouth every 6 hours as needed for Pain for up to 7 days. Intended supply: 7 days. Take lowest dose possible to manage pain 28 tablet / tiZANidine (ZANAFLEX) 2 MG tablet Take 1 tablet by mouth every 6 hours as needed (for pain) 28 tablet /rescriptionSigDispensedRefillsStart DateEnd Date gabapentin (NEURONTIN) 800 MG tablet Take 1 tablet by mouth 2 times daily for 10 days. 90 tablet / cephALEXin (KEFLEX) 500 MG capsule Take 1 capsule by mouth 3 times daily for 7 days 21 capsule / oxyCODONE-acetaminophen (PERCOCET) 5-325 MG per tablet Indications:Cervical stenosis of spinal canal,S/P cervical spinal fusionTake 1 tablet by mouth every 4 hours as needed for Pain for up to 7 days. 30 tablet / gabapentin (NEURONTIN) 800 MG tablet Take 2 tablets by mouth at bedtime for 7 doses. 90 tablet /rescriptionSigDispensedRefillsStart DateEnd Date HYDROcodone-acetaminophen (NORCO) 5-325 MG per tablet Indications:Acute postoperative painTake 1 tablet by mouth every 6 hours as needed for Pain for up to 3 days. Intended supply: 3 days. Take lowest dose possible to manage pain Max Daily Amount: 4 tablets 10 tablet / Care Teams (unrecognized sec tion and content) Team Status: Inactive Member Role Status Dates Marito Villalobos MD Attending Provider Active Team MemberRelationshipSpecialtyStart DateEnd Date Davie Hernandes Claire PCP - General07/20/12Team MemberRelationshipSpecialtyStart DateEnd Date Niki Pearson MD [address] [place] [address] PCP - GeneralFamily [id number]/19/22Team MemberRelationshipSpecialtyStart Date End Date Niki Pearson MD [address] [place], [place] [id number] PCP - GeneralFamily Lcpboobq17/19/22Team MemberRelationshipSpecialtyStart [place] [address] [place], [place] [id number] PCP - GeneralFamily Hwqswdoz18/19/22Team MemberRelationshipSpecialtyStart Date End Date Niki Pearson MD [address] [place], [place] [phone] PCP - GeneralFamily Oxyihgjv29/19/22Team MemberRelationshipSpecialtyStart Date End Date Niki Pearson MD [address] [place], [place] [phone] PCP Rust02/23/25Te MemberRelationshipSpecialtyStnew [place] [facility] Niki Pearson MD [address] [place] [address] PCP - [facility]02/23/25Te MemberRelationshipSpecialtyStart DateEnd Niki Pearson MD PCP - [facility]02/23/25Te MemberRelationshipSpecialtyStnew [place] [facility] Niki Pearson MD PCP - [facility]02/23/25Te MemberRelationshipSpecialtyStnew [place] End Niki Pearson MD PCP [place]02/23/25Te MemberRelationshipSpecialtyStart End Niki Pearson MD PCP Rust02/23/25 Goals (unrecognized section and content) Goals may be documented in a n alternate section Scheduled Active and Recently Administ ered Medications (unrecognized section and content) Medication Order//06/2022 oxyCODONE (ROXICODONE) immediate release tablet 5 mg (COMPLETED) 5 mg, Oral, ONCE, 1 dose, On Fri06/17/22 at 1815 * 1813 (Given - Provider: Tracy Patiño RN) Medication Order/// acetaminophen (TYLENOL) tablet 650 mg 650 mg, Oral, EVERY 6 HOURS, First dose on Fri09/02/22 at 1330, Until Discontinued, Maximum dose of acetaminophen is 4000 mg from all sources in 24 hours. * 1559 (Not Given - Provider: Jacqui Renteria RN - Reason: Patient/family refused) * 2150 (Given - Provider: Praneeth Currie RN) * 0133 (Given - Provider: Praneeth Currie RN) * 0625 (Given - Provider: Praneeth Currie RN) * 1445 (Not Given - Provider: Jacqui Renteria RN - Reason: Patient/family refused) * 1944 (Given - Provider: Praneeth Currie RN) * 0148 (Given - Provider: Praneeth Currie RN) * 0648 (Given - Provider: Praneeth Currie RN) * 1340 (Not Given - Provider: Jacqui Renteria RN - Reason: Patient/family refused) * 1930 (Due) ascorbic acid (VITAMIN C) tablet 1,000 mg 1,000 mg, Oral, DAILY, First dose on Fri09/02/22 at 2030, Until Discontinued * 2253 (Not Given - Provider: Praneeth Currie RN - Reason: Patient/family refused) * 0756 (Given - Provider: Manuel Kaplan RN) * 0839 (Given - Provider: Jacqui Renteria RN) carvedilol (COREG) tablet 6.25 mg 6.25 mg, Oral, 2 TIMES DAILY WITH MEALS, First dose on Fri09/03/22 at 1700, Until Discontinued, Administer with food to minimize the risk of orthostatic hypotension * 1649 (Given - Provider: Jacqui Renteria RN) * 0839 (Given - Provider: Jacqui Renteria RN) * 1700 (Due) ceFAZolin (ANCEF) 2000 mg in sterile water 20 mL IV syringe (COMPLETED) 2,000 mg, IntraVENous, ONCE, 1 dose, On Fri09/02/22 at 0745, Antimicrobial Indications: Surgical Prophylaxis, On way to or Administer over 5 mins., Pre-op (day of surgery) * 0922 (Given - Provider: Theresa Bernal APRN - TRANSCRIPTION) ceFAZolin (ANCEF) 2000 mg in sterile water 20 mL IV syringe (CANCELED) 2,000 mg, IntraVENous, EVERY 8 HOURS, 2 doses, First dose on Fri09/02/22 at 1700, Last dose on Fri09/03/22 at 0100, Antimicrobial Indications: Surgical Prophylaxis, Administer over 5 mins., Post-op * 1648 (Given - Provider: Jacqui Renteria RN) clonazePAM (KLONOPIN) tablet 1.5 mg 1.5 mg, Oral, NIGHTLY, First dose on Fri09/03/22 at 0030, Until Discontinued * 0020 (Not Given - Provider: Praneeth Currie RN - Reason: Other - Comment: Patient took home dose) * 2108 (Not Given - Provider: Praneeth Currie RN - Reason: Patient/family refused) * 2311 (Given - Provider: Praneeth Currie RN) * 2100 (Due) dexamethasone (DECADRON) injection 2 mg (COMPLETED) 2 mg, IntraVENous, EVERY 8 HOURS, First dose on Fri09/02/22 at 1700, For 3 doses * 1649 (Given - Provider: Jacqui Renteria RN) * 0133 (Given - Provider: Praneeth Currie RN) * 0757 (Given - Provider: Manuel Kaplan, [place]) escitalopram (LEXAPRO) tablet 10 mg 10 mg, Oral, DAILY, First dose on Fri09/02/22 at 2030, Until Discontinued * 2252 (Not Given - Provider: Praneeth Currie RN - Reason: Patient/family refused) * 0756 (Given - Provider: Manuel Kaplan, [place]) * 0839 (Given - Provider: Jacqui Renteria, [place]) gabapentin (NEURONTIN) capsule 1,600 mg 1,600 mg, Oral, NIGHTLY, First dose on Fri09/04/22 at 0045, Until Discontinued * 0154 (Given - Provider: Praneeth Currie RN) * 2100 (Due) gabapentin (NEURONTIN) tablet 800 mg (CANCELED) 800 mg, Oral, 4 TIMES DAILY, First dose on Fri09/02/22 at 2100, Until Discontinued * 2259 (Not Given - Provider: Praneeth Currie RN - Reason: Patient/family refused) * 0759 (Given - Provider: Manuel Kaplan, [place]) * 1400 (Not Given - Provider: Manuel Kaplan RN - Reason: Patient/family refused) * 1649 (Given - Provider: Jacqui Renteria RN) * 2332 (Not Given - Provider: Praneeth Currie RN - Reason: Patient/family refused) gabapentin (NEURONTIN) tablet 800 mg 800 mg, Oral, 2 TIMES DAILY BEFORE MEALS, First dose on Fri09/04/22 at 0700, Until Discontinued * 0658 (Given - Provider: Praneeth Currie RN) * 1600 (Due) glipiZIDE (GLUCOTROL) tablet 5 mg (CANCELED) 5 mg, Oral, DAILY, First dose on Fri09/02/22 at 2030, Until Discontinued * 2253 (Given - Provider: Praneeth Currie RN) insulin lispro (HUMALOG) injection vial 0-4 Units 0-4 Units, SubCUTAneous, NIGHTLY, First dose on Fri09/02/22 at 2100, Until Discontinued, If continuous tube feedings/TPN/NPO, give correction dose based on result, no reduction in dose. If eating orbolus tube feeding: Corrective Bedtime Algorithm Glucose: Dose: 70-299 No Insulin 300-349 4 Units Over 349 4 Units and notify physician * 2155 (Not Given - Provider: Praneeth Currie RN - Reason: Order parameters not met - Comment: Blood sugar: 132) * 210 (Not Given - Provider: Praneeth Currie RN - Reason: Order parameters not met - Comment: Blood sugar: 163) * 2100 (Due) insulin lispro (HUMALOG) injection vial 0-8 Units 0-8 Units, SubCUTAneous, 3 TIMES DAILY WITH MEALS, First dose on Fri09/03/22 at 0800, Until Discontinued, Medium Dose Corrective Algorithm Glucose: Dose: 70-199 No Insulin 200-249 2 Units 250-299 4 Units 300-349 6 Units Over 349 8 Units and notify physician * 0753 (Not Given - Provider: Manuel Kaplan RN - Reason: Order parameters not met) * 1121 (Not Given - Provider: Manuel Kaplan RN - Reason: Order parameters not met) * 1616 (Not Given - Provider: Jacqui Renteria RN - Reason: Order parameters not met - Comment: BS 189) * 0723 (Not Given - Provider: Jacqui Renteria RN - Reason: Order parameters not met - Comment: 127) * 1150 (Not Given - Provider: Jacqui Renteria RN - Reason: Order parameters not met) * 1700 (Due) ipratropium-albuterol (DUONEB) nebulizer solution 1 ampule 1 ampule, Inhalation, EVERY 4 HOURS WHILE AWAKE, First dose on Fri09/04/22 at 1200, Until Discontinued, Initiate RT Bronchodilator Protocol: Yes - Inpatient Protocol * 1056 (Not Given - Provider: LUCIA DAS - Reason: Patient/family refused) * 1535 (Not Given - Provider: Sonam Sauceda RCP - Reason: Patient not available) * 2000 (Due) melatonin tablet 9 mg 9 mg, Oral, NIGHTLY, First dose on Fri09/02/22 at 2100, Until Discontinued * 215 (Given - Provider: Praneeth Currie RN) * 230 (Given - Provider: Praneeth Currie RN) * 2100 (Due) phenytoin (DILANTIN) ER capsule 30 mg 30 mg, Oral, USER SPECIFIED (Once per day on Sun Fri), First dose on Fri09/04/22 at 1800, Until Discontinued, Tube feeding interaction, obtain physician order to manage. Recommend holding TFfor 1 hour before and 1 hour after dose. * 1800 (Due) phenytoin (DILANTIN) ER capsule 60 mg 60 mg, Oral, USER SPECIFIED (Once per day on Fri Sat), First dose on Fri09/03/22 at 2100, Until Discontinued, Tube feeding interaction, obtain physician order to manage. Recommend holding TF for1 hour before and 1 hour after dose. * 230 (Given - Provider: Praneeth Currie RN) phenytoin (PHENYTEK) ER capsule 300 mg 300 mg, Oral, NIGHTLY, First dose on Fri09/02/22 at 2100, Until Discontinued, Tube feeding interaction, obtain physician order to manage. Recommend holding TF for 1 hour before and 1 hour after dose. * 2253 (Not Given - Provider: Praneeth Currie RN - Reason: Patient/family refused) * 230 (Given - Provider: Praneeth Currie RN) * 2100 (Due) pioglitazone (ACTOS) tablet 15 mg (CANCELED) 15 mg, Oral, DAILY, First dose on Fri09/02/22 at 2030, Until Discontinued * 225 (Given - Provider: Praneeth Currie RN) scopolamine (TRANSDERM-SCOP) transdermal patch 1 patch 1 patch, TransDERmal, Administer over 72 Hours, EVERY 72 HOURS, First dose on Fri09/02/22 at 0815,delivers 1 mg over 3 days. Apply patch to hairless area behind the ear. * 0809 (Patch Applied - Provider: Sandra Jones [...] non-viscous solutions use: Peripheral IV = 5 mLMidline or Central Line = 10 mL/lumen For viscous solutions (i.e. blood components, parenteral nutrition, contrast media, or after obtaining blood sample) use: Peripheral IV = 10 mL Midline or Central Line = 20 mL/lumen * 2156 (Not Given - Provider: Praneeth Currie RN - Reason: IV Fluid Infusing) * 0757 (Given - Provider: Manuel Kaplan RN) * 2107 (Not Given - Provider: Praneeth Currie RN - Reason: IV Fluid Infusing) * 0840 (Given - Provider: Jacqui Renteria RN) * 2100 (Due) traZODone (DESYREL) tablet 100 mg 100 mg, Oral, NIGHTLY, First dose on Fri09/02/22 at 2100, Until Discontinued * 2345 (Given - Provider: Praneeth Currie RN) * 2107 (Not Given - Provider: Praneeth Currie RN - Reason: Patient/family refused) * 2313 (Given - Provider: Praneeth Currie RN) * 2100 (Due) Medication Order09/02/// 0.9 % sodium chloride infusion (CANCELED) IntraVENous, at 100 mL/hr, CONTINUOUS, Starting on Fri09/02/22 at 1330, May decrease/DC as patienttolerates PO intake and voids well (> or = 0.5 cc/kg/h). * 1447 (New Bag - Provider: Jacqui Renteria, RN) * 2105 (New Bag - Provider: Praneeth Currie RN) * 1503 (Stopped - Provider: Jacqui Renteria RN) lactated ringers infusion 1,000 mL (CANCELED) 1,000 mL, IntraVENous, at 50 mL/hr, CONTINUOUS, Starting on Fri09/02/22 at 0745, Pre-op (day of surgery) * 0809 (New Bag - Provider: Sandra Jones RN) * 0901 (Paused - Provider: TIFFANIE Marshall CRNA - Comment: Switch to gravity) * 0902 (Restarted - Provider: TIFFANIE Marshall CRNA) * 0915 (Canceled Entry - Provider: TIFFANIE Marshall CRNA) * 1129 (Anesthesia Volume Adjustment - Provider: TIFFANIE Marhsall CRNA) Medication Order// 0.9 % sodium chloride infusion IntraVENous, at 5-250 mL/hr, PRN, if patient receiving piggyback infusions and maintenance fluids are not ordered OR KVO fluids to protect IV site / prevent frequent line interruptions/ long duration, Starting on Fri09/02/22 at 1306, For piggyback infusion, administer at same rate as piggyback fora total of 25 mL. Enter 25 mL into dose field and piggyback rate into rate field of order. If piggyback is infusing at a rate less than 100 mL/hr, enter 25 mL into dose field and 100 mL/hr into rate field of order. For KVO fluids, enter rate of 20 mL/hr or less into rate field of order. * 1502 (Stopped - Provider: Jacqui Renteria RN) bupivacaine-EPINEPHrine (MARCAINE-w/EPINEPHRINE) 0.25% -1:[id number] injection (CANCELED) PRN, Starting on Fri09/02/22 at 0943, Until Fri09/02/22 at 1126, Intra-op * 0943 (Given - Provider: Endy Cruz MD - Comment: INJECTED AT OP SITE) cyclobenzaprine (FLEXERIL) tablet 5 mg 5 mg, Oral, NIGHTLY PRN, Starting on Fri09/03/22 at 2100, Until Discontinued, Muscle spasms * 2150 (Given - Provider: Praneeth Currie RN) [...] after 60 minutes, discontinue dextrose 10% infusion. * 1502 (Stopped - Provider: Jacqui Renteria RN) [...] after 60 minutes, discontinue dextrose 10% infusion. * 1502 (Stopped - Provider: Jacqui Renteria RN) [...] ALERT or NPO, Starting on Fri09/02/22 at 195, Repeat blood glucose in 15 minutes. If [...] PRN, Starting on Fri09/02/22 at 1005, Intra-op * 1005 (Given - Provider: Endy Cruz MD [...] LESS THAN 70 mg/dL, repeat treatment and re check blood glucose in 15 minutes x 2. [...] LESS THAN 70 mg/dL, repeat treatment and re check blood glucose in 15 minutes x 2. If blood glucose remains LESS THAN 70 mg/dL, notify provider. hydrALAZINE (APRESOLINE) injection 10 mg 10 mg, IntraVENous, EVERY 6 HOURS PRN, Starting on Fri09/02/22 at 2315, Until Discontinued, High Blood Pressure, SBP > 150 * 2330 (Given - Provider: Praneeth Currie RN) iopamidol (ISOVUE-370) 76 % injection 75 mL (COMPLETED) 75 mL, IntraVENous, IMG ONCE PRN, 1 dose, Starting on Fri09/04/22 at 0428, Until Fri09/04/22 at 0428, Other * 0428 (Given - Provider: Tia Benton - Comment: [id number] 02/2025) morphine (PF) injection 2 mg (COMPLETED) 2 mg, IntraVENous, EVERY 5 MIN PRN, 4 doses, Starting on Fri09/02/22 at 1143, Until Fri09/02/22 at 1233, Pain Severe (7-10), For Phase I. If Phase II oral narcotics have been administered in the last 60 minutes, do not administer IV narcotics unless specifically approved by provider., PACU only * 1209 (Given - Provider: Kayleigh Munguia RN) * 1215 (Given - Provider: Kayleigh Munguia RN) * 1226 (Given - Provider: Kayleigh Munguia, RN) * 1233 (Given - Provider: Kayleigh Munguia, RN) ondansetron (ZOFRAN) injection 4 mg 4 mg, IntraVENous, EVERY 6 HOURS PRN, Starting on Fri09/02/22 at 1306, Until Discontinued, Nausea,Vomiting oxyCODONE-acetaminophen (PERCOCET) 5-325 MG per tablet 1 tablet Mg/kg dosing is based on the oxycodone component., 1 tablet, Oral, EVERY 4 HOURS PRN, Starting on Fri09/02/22 at 1306, Until Discontinued, Pain Moderate (4-6), Pain Severe (7-10), Maximum dose of acetaminophen is 4000 mg from all sources in 24 hours. * 1648 (Given - Provider: Jacqui Renteria, RN) * 2211 (Given - Provider: Praneeth Currie, RN) * 0411 (Given - Provider: Praneeth Currie, RN) * 0804 (Given - Provider: Manuel Kaplan, [place]) * 1444 (Given - Provider: Jacqui Renteria, RN) * 2302 (Given - Provider: Praneeth Currie, RN) * 0840 (Given - Provider: Jacqui Renteria, RN) sodium chloride 0.9 % irrigation (CANCELED) CONTINUOUS PRN, Starting on Fri09/02/22 at 1005, Intra-op * 1005 (New Bag - Provider: Endy Cruz [...] PRN, Starting on Fri09/02/22 at 1005, Intra-op * 1005 (Given - Provider: Endy Cruz MD - Comment: POURED TO STERILE FIELD USED PRN) tiZANidine (ZANAFLEX) tablet 4 mg 4 mg, Oral, EVERY 6 HOURS PRN, Starting on Fri09/02/22 at 1306, Until Discontinued, Muscle spasms * 1255 (Given - Provider: Manuel Kaplan RN) Order Group 1: dextrose bolus 10% 125 mLJump to med 125 mL, IntraVENous, at 937.5 mL/hr, Administer over 8 Minutes, PRN, Other, Blood glucose 40 - 69 mg/dL and patient NOT ALERT or NPO, Starting on Fri09/02/22 at 2009
Repeat blood glucose in15 minutes. If blood glucose remains LESS THAN 70 mg/dL, repeat treatment and recheck blood glucosein 15 minutes x 2. If using glycemic [...] on Fri09/02/22 at 1957
Repeat blood glucose in15 minutes. If blood glucose remains LESS THAN 70 mg/dL, repeat treatment and recheck blood glucosein 15 minutes x 2. If using glycemic [...] 10% at 100 mL/hour and notify provider.
Medication Order busPIRone (BUSPAR) tablet 10 mg 10 mg, Oral, DAILY, First dose on Fri10/28/22 at 1200, Until Discontinued * 1314 (Given - Provider: Manuel Kaplan RN) * 0907 (Given - Provider: Deloris Chong, [place]) calcium carbonate tablet 600 mg 600 mg, Oral, 2 TIMES DAILY WITH MEALS, First dose on Fri10/28/22 at 1200, Until Discontinued * 1315 (Given - Provider: Manuel Kaplan RN) * 1525 (Not Given - Provider: Manuel Kaplan RN - Reason: Order parameters not met) * 0907 (Given - Provider: Deloris Chong RN) * 1700 (Due) carvedilol (COREG) tablet 6.25 mg 6.25 mg, Oral, 2 TIMES DAILY WITH MEALS, First dose on Fri10/28/22 at 1700, Until Discontinued, Administer with food to minimize the risk of orthostatic hypotension * 1527 (Given - Provider: Manuel Kaplan RN) * 0907 (Given - Provider: Deloris Chong, [place]) * 1700 (Due) ceFAZolin (ANCEF) 2000 mg in sterile water 20 mL IV syringe (COMPLETED) 2,000 mg, IntraVENous, ONCE, 1 dose, On Fri10/28/22 at 0715, Antimicrobial Indications: Surgical Prophylaxis, Administer over 5 mins. * 0749 (Given - Provider: Cm Serrano APRN - TRANSCRIPTION) ceFAZolin (ANCEF) 2000 mg in sterile water 20 mL IV syringe (COMPLETED) 2,000 mg, IntraVENous, EVERY 8 HOURS, 2 doses, First dose on Fri10/28/22 at 1600, Last dose on Fri10/29/22 at 0000, Antimicrobial Indications: Surgical Prophylaxis, Administer over 5 mins. * 1645 (Given - Provider: Manuel Kaplan RN) * 0034 (Given - Provider: Jacqui Renteria RN) cetirizine (ZYRTEC) tablet 10 mg 10 mg, Oral, DAILY, 3 doses, First dose on Fri10/28/22 at 1200, Last dose on Fri10/30/22 at 0900 * 1315 (Not Given - Provider: Manuel Kaplan RN - Reason: Patient/family refused) * 0907 (Given - Provider: Deloris Chong RN) clonazePAM (KLONOPIN) tablet 1.5 mg 1.5 mg, Oral, NIGHTLY, First dose on Fri10/28/22 at 2100, Until Discontinued * 2214 (Given - Provider: Jacqui Renteria, [place]) * 2100 (Due) dexamethasone (DECADRON) injection 4 mg (COMPLETED) 4 mg, IntraVENous, EVERY 8 HOURS, First dose on Fri10/28/22 at 1545, For 3 doses * 1527 (Given - Provider: Manuel Kaplan RN) * 0034 (Given - Provider: Jacqui Renteria RN) * 0622 (Given - Provider: Jacqui Renteria RN) escitalopram (LEXAPRO) tablet 10 mg 10 mg, Oral, DAILY, First dose on Fri10/28/22 at 1200, Until Discontinued * 1314 (Not Given - Provider: Manuel Kaplan RN - Reason: Patient took at home) * 0907 (Given - Provider: Deloris Chong RN) fluticasone (FLONASE) 50 MCG/ACT nasal spray 1 spray 1 spray, Each Nostril, DAILY, First dose on Fri10/28/22 at 1200, Until Discontinued, Substituted for Mometasone (NASONEX). * 1312 (Given - Provider: Manuel Kaplan RN) * 0908 (Given - Provider: Deloris Chong, [place]) gabapentin (NEURONTIN) tablet 1,600 mg (CANCELED) 1,600 mg, Oral, Nightly, 8 doses, First dose on Fri10/28/22 at 2315, Last dose on Fri11/04/22 at 2100, 1600 mg at nighttime * 2314 (Given - Provider: Jacqui Renteria RN) gabapentin (NEURONTIN) tablet 800 mg (CANCELED) 800 mg, Oral, 4 TIMES DAILY, First dose on Fri10/28/22 at 1345, Until Discontinued * 1527 (Given - Provider: Manuel Kaplan RN) * 2214 (Not Given - Provider: Jacqui Renteria RN - Reason: Other) gabapentin (NEURONTIN) tablet 800 mg 800 mg, Oral, USER SPECIFIED (2 times per day), First dose (after last modification) on Fri10/29/22 at 0600, Until Discontinued, 800 mg - Morning 800 mg - Noon * 0908 (Given - Provider: Deloris Chong RN) * 1150 (Given - Provider: Deloris Chong RN) glipiZIDE (GLUCOTROL) tablet 5 mg 5 mg, Oral, DAILY, First dose on Fri10/28/22 at 1200, Until Discontinued * 1314 (Not Given - Provider: Manuel Kaplan RN - Reason: Other) * 0907 (Given - Provider: Deloris Chong RN) insulin lispro (HUMALOG) injection vial 0-4 Units 0-4 Units, SubCUTAneous, 3 TIMES DAILY WITH MEALS, First dose on Fri10/28/22 at 1700, Until Discontinued, Corrective Low Dose Algorithm Glucose: Dose: 70- 199 No Insulin 200-249 1 Unit 250-299 2 Units 300-349 3 Units Over 349 4 Units and notify physician * 1643 (Not Given - Provider: Manuel Kaplan RN - Reason: Order parameters not met) * 0902 (Not Given - Provider: Deloris Chong RN - Reason: Order parameters not met) * 1151 (Not Given - Provider: Deloris Chong RN - Reason: Order parameters not met) * 1700 (Due) insulin lispro (HUMALOG) injection vial 0-4 Units 0-4 Units, SubCUTAneous, NIGHTLY, First dose on Fri10/28/22 at 2100, Until Discontinued, If continuous tube feedings/TPN/NPO, give correction dose based on result, no reduction in dose. If eating orbolus tube feeding: Corrective Bedtime Algorithm Glucose: Dose: 70-299 No Insulin 300-349 4 Units Over 349 4 Units and notify physician * 2156 (Not Given - Provider: Jacqui Renteria RN - Reason: Order parameters not met - Comment: BS 136) * 2100 (Due) melatonin tablet 9 mg 9 mg, Oral, NIGHTLY, First dose on Fri10/28/22 at 2100, Until Discontinued * 2213 (Given - Provider: Jacqui Renteria RN) * 2100 (Due) phenytoin (DILANTIN) ER capsule 30 mg 30 mg, Oral, USER SPECIFIED (Once per day on Sun Fri), First dose on Fri10/28/22 at 2100, Until Discontinued, Tube feeding interaction, obtain physician order to manage. Recommend holding TFfor 1 hour before and 1 hour after dose. * 2212 (Given - Provider: Jacqui Renteria RN) phenytoin (DILANTIN) ER capsule 60 mg 60 mg, Oral, USER SPECIFIED (Once per day on Fri), First dose on Fri10/29/22 at 2100, Until Discontinued, Tube feeding interaction, obtain physician order to manage. Recommend holding TF for1 hour before and 1 hour after dose. * 2100 (Due) phenytoin (PHENYTEK) ER capsule 300 mg 300 mg, Oral, NIGHTLY, First dose on Fri10/28/22 at 2100, Until Discontinued, Tube feeding interaction, obtain physician order to manage. Recommend holding TF for 1 hour before and 1 hour after dose. * 221 (Given - Provider: Jacqui Renteria RN) * 2100 (Due) pioglitazone (ACTOS) tablet 15 mg 15 mg, Oral, DAILY, First dose on Fri10/28/22 at 1215, Until Discontinued * 1315 (Given - Provider: Manuel Kaplan RN) * 0908 (Given - Provider: Deloris Chong, [place]) scopolamine (TRANSDERM-SCOP) transdermal patch 1 patch 1 patch, TransDERmal, Administer over 72 Hours, EVERY 72 HOURS, First dose on Fri10/28/22 at 0800,delivers 1 mg over 3 days. Apply patch to hairless area behind the ear. * 0725 (Patch Applied - Provider: Nadia Mata RN - Comment: Behind right ear) sodium chloride flush 0.9 % injection 10 mL 10 mL, IntraVENous, EVERY 12 HOURS SCHEDULED (2 times per day), First dose on Fri10/28/22 at 1030,Until Discontinued * 1357 (Canceled Entry - Provider: Manuel Kaplan RN) * 2142 (Not Given - Provider: Jacqui Renteria RN - Reason: IV Fluid Infusing) * 0902 (Not Given - Provider: Deloris Chong RN - Reason: IV Fluid Infusing) * 2100 (Due) traZODone (DESYREL) tablet 100 mg 100 mg, Oral, NIGHTLY, First dose on Fri10/28/22 at 2100, Until Discontinued * 222 (Given - Provider: Jacqui Renteria, RN) * 2100 (Due) Vitamin D (CHOLECALCIFEROL) tablet 6,000 Units Labeling may look different. 25 uau=4402 Units. Please double check dosages., 6,000 Units, Oral, DAILY, First dose on Fri10/29/22 at 0900, Until Discontinued * 0908 (Given - Provider: Deloris Chong, RN) Medication Order// lactated ringers infusion 125 mL/hr, IntraVENous, CONTINUOUS, Starting on Fri10/28/22 at 1030, Continue until urine output > 30 cc/hr and patient has resumed normal oral intake * 1159 (New Bag - Provider: Manuel Kaplan RN) * 0627 (New Bag - Provider: Jacqui Renteria, RN) Medication Order// 0.9 % sodium chloride infusion IntraVENous, at 5-250 mL/hr, PRN, if patient receiving piggyback infusions and maintenance fluids are not ordered OR KVO fluids to protect IV site / prevent frequent line interruptions/ long duration, Starting on Fri10/28/22 at 1010, For piggyback infusion, administer at same rate as piggyback fora total of 25 mL. Enter 25 mL into dose field and piggyback rate into rate field of order. If piggyback is infusing at a rate less than 100 mL/hr, enter 25 mL into dose field and 100 mL/hr into rate field of order. For KVO fluids, enter rate of 20 mL/hr or less into rate field of order. bupivacaine-EPINEPHrine (MARCAINE-w/EPINEPHRINE) 0.25% -1:292416 injection (CANCELED) PRN, Starting on Fri10/28/22 at 0810, Until Fri10/28/22 at 1008, Intra-op * 0810 (Given - Provider: Endy Cruz MD - Comment: OP SITE INJECTION) cyclobenzaprine (FLEXERIL) tablet 5 mg (CANCELED) 5 mg, Oral, NIGHTLY PRN, Starting on Fri10/28/22 at 2100, Until Fri10/29/22 at 0726, Muscle spasms * 2214 (Given - Provider: Jacqui Renteria RN) [...] PRN, Starting on Fri10/28/22 at 0821, Intra-op * 0821 (Given - Provider: Endy Cruz MD [...] LESS THAN 70 mg/dL, repeat treatment and re check blood glucose in 15 minutes x 2. If blood glucose remains LESS THAN 70 mg/dL, notify provider. HYDROmorphone (DILAUDID) injection 0.25 mg (CANCELED) HYDROmorphone (DILAUDID) 1.5mg IV is equivalent to morphine 10mg IV, 0.25 mg, IntraVENous, EVERY 5 MIN PRN, 2 doses, Starting on Fri10/28/22 at 1016, Until Fri10/28/22 at 1132, Pain Moderate (4-6),For Phase I. If Phase II oral narcotics have been administered in the last 60 minutes, do not administer IV narcotics unless specifically approved by provider., PACU only * 1107 (Given - Provider: Warren Karimi RN) HYDROmorphone (DILAUDID) injection 0.5 mg (COMPLETED) HYDROmorphone (DILAUDID) 1.5mg IV is equivalent to morphine 10mg IV, 0.5 mg, IntraVENous, EVERY 5 MIN PRN, 2 doses, Starting on Fri10/28/22 at 1016, Until Discontinued, Pain Severe (7-10), For PhaseI. If Phase II oral narcotics have been administered in the last 60 minutes, do not administer IV narcotics unless specifically approved by provider., PACU only * 1023 (Given - Provider: Warren Karimi, [place]) * 1037 (Given - Provider: Warren Karimi RN) morphine [...] hour of each other unless specifically ordered. * 1945 (Given - Provider: Jacqui Renteria RN) morphine (PF) injection 4 mg(Linked Group 2) 4 mg, IntraVENous, EVERY 2 HOURS PRN, Starting on Fri10/28/22 at 1010, Until Discontinued, Pain Severe (7-10), If oral and IV narcotics ordered, use oral first and only use IV if oral is ineffectiveor cannot take oral. Do Not give oral and IV within 1 hour of each other unless specifically ordered. * 1945 (See Alternative - Provider: Jacqui Renteria RN) ondansetron (ZOFRAN) injection 4 mg(Linked Group 3) 4 mg, IntraVENous, EVERY 6 HOURS PRN, Starting on Fri10/28/22 at 1010, Until Discontinued, Nausea,Vomiting, Administer if oral route cannot be used. ondansetron (ZOFRAN) injection 4 mg (COMPLETED) 4 mg, IntraVENous, ONCE PRN, 1 dose, Starting on Fri10/28/22 at 1030, Until Fri10/28/22 at 1032, Nausea, Vomiting * 1032 (Given - Provider: Warren Karimi RN) [...] mg from all sources in 24 hours. * 2214 (Given - Provider: Jacqui Renteria RN) * 0314 (Given - Provider: Jacqui Renteria RN) * 0730 (Given - Provider: Jacqui Renteria RN) * 1150 (Given - Provider: Deloris Chong RN) oxyCODONE-acetaminophen (PERCOCET) 5-325 MG per tablet 2 tablet Mg/kg dosing is based on the oxycodone component., 2 tablet, Oral, EVERY 4 HOURS PRN, Starting on Fri10/28/22 at 1033, Until Discontinued, Pain Moderate (4-6), Pain Severe (7-10), Please use oral meds over IV if possible, Maximum dose of acetaminophen is 4000 mg from all sources in 24 hours. * 1311 (Given - Provider: Manuel Kaplan, [place]) * 1753 (Given - Provider: Manuel Kaplan RN) polyethylene glycol (GLYCOLAX) packet 17 g 17 g, Oral, DAILY PRN, Starting on Fri10/28/22 at 1010, Until Discontinued, Constipation, First line therapy for constipation * 2309 (Given - Provider: Jacqui Renteria RN) sodium chloride 0.9 % irrigation (COMPLETED) CONTINUOUS PRN, Starting on Fri10/28/22 at 0821, Intra-op * 0821 (New Bag - Provider: Endy Cruz MD - Comment: POURED TO STERILE FIELD USED PRN) sodium chloride flush 0.9 % injection 10 mL 10 mL, IntraVENous, PRN, Starting on Fri10/28/22 at 1010, Until Discontinued, Line Care, After every IV line use thrombin kit (CANCELED) PRN, Starting on Fri10/28/22 at 0822, Intra-op * 0822 (Given - Provider: Endy Cruz MD - Comment: POURED TO STERILE FIELD, USED PRN) tiZANidine (ZANAFLEX) tablet 4 mg 4 mg, Oral, EVERY 6 HOURS PRN, Starting on Fri10/29/22 at 0726, Until Discontinued, Muscle spasms Order Group 1: dextrose bolus 10% 125 mLJump to med 125 mL, IntraVENous, at 937.5 mL/hr, Administer over 8 Minutes, PRN, Other, Blood glucose 40 - 69 mg/dL and patient NOT ALERT or NPO, Starting on Fri10/28/22 at 1355
Repeat blood glucose in15 minutes. If blood glucose remains LESS THAN 70 mg/dL, repeat treatment and recheck blood glucosein 15 minutes x 2. If using glycemic [...] and IV within 1 hour of each otherunless specifically ordered.
Group 3: ondansetron (ZOFRAN-ODT) disintegrating tablet 4 mgJump to med 4 mg, Oral, EVERY 8 HOURS PRN, Starting on Fri10/28/22 at 1010, Until Discontinued, Nausea, Vomiting Or ondansetron (ZOFRAN) injection 4 mgJump to med 4 mg, IntraVENous, EVERY 6 HOURS PRN, Starting on Fri10/28/22 at 1010, Until Discontinued, Nausea,Vomiting
Administer if oral route cannot be used.
Medication Order// ceFAZolin (ANCEF) 2,000 mg in sodium chloride 0.9 % 50 mL IVPB (mini-bag) (COMPLETED) 2,000 mg, IntraVENous, VP ANALYSIS TO O.R., 1 dose, On Sonia 11/06/23 at 1100, Antimicrobial Indications:Surgical Prophylaxis, Pre-op (day of surgery) * 1248 (New Bag - Provider: Alicia Jalloh WATCH ELECTRICIAN - TRANSCRIPTION) HYDROcodone-acetaminophen (NORCO) 5-325 MG per tablet 1 tablet (COMPLETED) 1 tablet, Oral, ONCE, 1 dose, On Sonia 11/06/23 at 1400, Maximum dose of acetaminophen is 4000 mg from all sources in 24 hours. * 1333 (Given - Provider: Ashly Patterson RN) sodium chloride flush 0.9 [...] non-viscous solutions use: Peripheral IV = 5 mLMidline or Central Line = 10 mL/lumen For viscous solutions (i.e. blood components, parenteral nutrition, contrast media, or after obtaining blood sample) use: Peripheral IV = 10 mL Midline or Central Line = 20 mL/lumen, Pre-op (day of surgery) * 1100 (Due) * 2100 (Due) sodium chloride flush 0.9 % injection [...] non-viscous solutions use: Peripheral IV = 5 mLMidline or Central Line = 10 mL/lumen For viscous solutions (i.e. blood components, parenteral nutrition, contrast media, or after obtaining blood sample) use: Peripheral IV = 10 mL Midline or Central Line = 20 mL/lumen, PACU only * 2100 (Due) Medication Order//[id number]/ lactated ringers IV soln infusion IntraVENous, at 125 mL/hr, CONTINUOUS, Starting on Sonia 11/06/23 at 1100, Pre-op (day of surgery) * 1100 (Due) Medication Order// 0.9 % sodium chloride infusion IntraVENous, at 5-250 mL/hr, PRN, if patient receiving piggyback infusions and maintenance fluids are not ordered OR KVO fluids to protect IV site / prevent frequent line interruptions/ long duration, Starting on Sonia 11/06/23 at 1035, For piggyback infusion, administer at same rate as piggyback fora total of 25 mL. Enter 25 mL into dose field and piggyback rate into rate field of order. If piggyback is infusing at a rate less than 100 mL/hr, enter 25 mL into dose field and 100 mL/hr into rate field of order. For KVO fluids, enter rate of 20 mL/hr or less into rate field of order., Pre-op (day of surgery) * 1110 (New Bag - Provider: Jenna Yang RN) * 1239 (NoRateChange - Provider: TIFFANIE Davidson TRANSCRIPTION) * 1240 (Paused - Provider: TIFFANIE Davidson CRNA - Comment: Switch to gravity) * 1241 (Restarted - Provider: TIFFANIE Davidson CRNA) 0.9 % sodium chloride infusion IntraVENous, at 5-250 mL/hr, PRN, if patient receiving piggyback infusions and maintenance fluids are not ordered OR KVO fluids to protect IV site / prevent frequent line interruptions/ long duration, Starting on Sonia 11/06/23 at 1307, For piggyback infusion, administer at same rate as piggyback fora total of 25 mL. Enter 25 mL into dose field and piggyback rate into rate field of order. If piggyback is infusing at a rate less than 100 mL/hr, enter 25 mL into dose field and 100 mL/hr into rate field of order. For KVO fluids, enter rate of 20 mL/hr or less into rate field of order., PACU only bupivacaine-EPINEPHrine (MARCAINE-w/EPINEPHRINE) 0.25% -1:[id number] injection (CANCELED) PRN, Starting on Sonia 11/06/23 at 1247, Until Sonia 11/06/23 at 1315, Intra-op * 1247 (Given - Provider: Endy Cruz MD - Comment: operative site [...] narcotics have been administered in the last 60minutes, do not administer IV narcotics unless specifically [...] on Sonia 12 at 1307, Until Discontinued, High Blood Pressure, [...] Central Line = 20 mL/lumen, PACU only Medication Order11/04/20221111//20221111/ ceFAZolin (ANCEF) 2 g injection 1 dose, Starting on Sonia 11/06/23 at 1114, Until Fri11/06/23 at 2314, Jenna Yang: cabinet override, Jenna Yang: cabinet override * 1115 (Due) Order Group 1: labetalol (NORMODYNE;TRANDATE) injection 10 [...] provider if SBP is still greater than 180mmHg 10 minutes after second antihypertensive dose is [...] BE BASED ON THE PRIMARY CLINICAL RECORDS. [facility]. provides no warranty or guarantee of the accuracy or completeness of information in this document.
--- OUTSIDE RECORDS SUMMARY | 2025-10-14 09:55 | XMS_ITS | Clinical Summary ---
Author Organization [employer] tem Address [id number] [address] [place] [address] Care Team Providers Care Dye Tub Tender Name Role Phone Levon Leahy MD Primary Care Provider [phone] Allergies Active AllergyReactionsCriticalityNoted DateCommentsAdhesive Tape-SiliconesRash Low03/27/2017CelecoxibGI OvnydwyutecPrkaxi49/21/2025odeineVomitingMedium 03/27/2017Diclofenac-MisoprostolOther (See Comments),GI DisturbanceMedium 08/05/2023 Other Reaction(s): Other (See Comments) Gastric ulcers Gastric ulcers Flu Vacc Qn4828-29(4yr,Up)(Pf)JyvarrrrYmfyji19/21/2025 HOT AT SITE GlutaraldehydeOther (See Comments),SittodwfAhfjzo29/24/2021 Ulcers Other Reaction(s): Other (See Comments), Unknown Ulcers Nsaids (Non-Steroidal Anti-Inflammatory Drug)GI OplbaukpwqhZgiftc10/25/2020 OxaprozinHives,Other (See Comments),GI BtsnzdjinzuVsjeqq97/24/2021 GI ulcers Sulfa (Sulfonamide Antibiotics)Other (See Comments)06/13/2025 Blisters on skin per patient Medications MedicationSigDispense QuantityRefillsLast FilledStart DateEnd DateStatus gabapentin (NEURONTIN) 800 mg tablet Indications:partial epilepsy treatment adjunctTake 1 tablet (800 mg total) by mouth in the morning and 1 tablet (800 mg total) at noon and 1 tablet (800 mg total) in the evening and 1 tablet (800 mg total) before bedtime. Indications: additionalmedication to treat partial seizures.03/19/2017Active DILANTIN EXTENDED 100 mg ER capsule Take 3 capsules (300 mg total) by mouth nightly.01/25/2017Active DILANTIN 30 mg ER capsule Indications:epilepsyTake by mouth nightly Indications: epilepsy. Pt takes 30mg on Friday,Friday, & Friday Pt takes 60 mg on Friday, & Beenprss75/26/2017Active clonazePAM (KlonoPIN) 0.5 mg tablet Take 1 tablet (0.5 mg total) by mouth nightly.Active escitalopram (LEXAPRO) 10 mg tablet Take 1 tablet (10 mg total) by mouth in the morning.Active MELATONIN ORAL Take 15 mg by mouth nightly.Active LECITHIN ORAL Take 2 tablets by mouth 3 (three) times a day.Active BIOTIN ORAL Take 20,000 mcg by mouth in the morning and 20,000 mcg before bedtime.Active CHOLECALCIFEROL, VITAMIN D3, (VITAMIN D3 ORAL) Take 6,000 Int'l Units by mouth daily with dinner.Active calcium carbonate (OS-JOMAR) 600 mg (1,500 mg) tablet Take 5 tablets (3,000 mg total) by mouth daily with dinner.Active ascorbic acid, vitamin C, (vitamin C) 1000 mg tablet Take 1 tablet (1,000 mg total) by mouth in the morning.Active b complex vitamins capsule Take 1 capsule by mouth in the morning.Active vitamin B complex (VITAMINS B COMPLEX ORAL) Take 1 tablet by mouth in the morning and 1 tablet before bedtime.Active ubidecarenone (H2Q COQ10 ORAL) Take 100 mg by mouth daily with dinner.Active mometasone (NASONEX) 50 mcg/actuation nasal spray Administer 2 sprays into each nostril in the morning.Active MULTIVITAMIN ORAL Take 1 tablet by mouth in the morning and at bedtime.Active traZODone (DESYREL) 100 mg tablet Take 1.5 tablets (150 mg total) by mouth nightly. Can take up to 300mg as needed Active busPIRone (BUSPAR) 10 mg tablet Take 1 tablet (10 mg total) by mouth in the morning./ctive carvediloL (COREG) 6.25 mg tablet Take 1 tablet (6.25 mg total) by mouth in the morning and 1 tablet (6.25 mg total) before bedtime.Active denosumab (PROLIA) 60 mg/mL syringe injection Inject 1 mL (60 mg total) under the skin every 6 (six) months.Active pioglitazone (ACTOS) 30 mg tablet Take 1 tablet (30 mg total) by mouth in the morning.5Active tiZANidine (ZANAFLEX) 2 mg tablet Take 1 tablet (2 mg total) by mouth every 8 (eight) hours as needed.06/17/2024 Active glipiZIDE (GLUCOTROL) 5 mg tablet Take 1 tablet (5 mg total) by mouth every morning.Active omega 3-voa-rrb-fish oil (Fish OiL) 1,000 (120-180) mg capsule Take 1 capsule by mouth in the morning and 1 capsule before bedtime.Active VITAMIN E ACETATE ORAL Take 2 tablets by mouth every morning.Active cetirizine (ZyrTEC) 10 mg tablet Take 1 tablet (10 mg total) by mouth in the morning.Active beta carotene 42374 units capsule Take 1 capsule (25,000 Units total) by mouth in the morning.Active MILK THISTLE ORAL Take 1 tablet by mouth every morning.Active mupirocin (BACTROBAN) 2 % ointment Indications:Aftercare following right knee joint replacement surgeryApply 1 Application topically in the morning and 1 Application before bedtime. 15 g 5Active acetaminophen (TYLENOL EXTRA STRENGTH) 500 mg tablet Take 1 tablet (500 mg total) by mouth every 6 (six) hours as needed for pain. Active HYDROcodone-acetaminophen (NORCO) 5-325 mg per tablet Indications:Aftercare following right knee joint replacement surgeryTake 1 tablet by mouth 2 (two) times a day as needed for pain. Max Daily Amount: 2 tablets 14 tablet 5Active famotidine (PEPCID) 20 mg tablet Take 1 tablet (20 mg total) by mouth in the morning and 1 tablet (20 mg total) before bedtime. 60 tablet 5Active amoxicillin (AMOXIL) 500 mg capsule Take 4 tablets (2 grams) by mouth 1 hour prior to dental procedure for prophylaxis 4 capsule 510/6Active celecoxib (CeleBREX) 200 mg capsule Take 1 capsule (200 mg total) by mouth daily as needed for pain for up to 30 days. 30 capsule 511/Expired Active Problems ProblemNoted DateDiagnosed DateChronic knee pain after total replacement of right knee joint04/14/2025History of gastric ulcer04/14/2025Hyperlipidemia 04/14/2025Peptic ulcer04/14/2025Rotator cuff gqobvcdf53/05/2025 Overview (04/14/2025): RIGHT Other nerve root and plexus deyloecxh04/14/2024Trochanteric bursitis, right hip 09/23/2024rthritis of left knee03/25/2024ure hypercholesterolemia, unspecified 12/25/2023ure amsddquhfidzcgbyokmx54/15/2024cute carpal tunnel syndrome of right wrist11/06/2023ffective inzwycfoi44/21/1930Ofomxdevo33/21/2023ifficulty srqndwg6507/31/2023Memory loss07/31/2023Morton's neuroma of third interspace of right foot07/31/2023eripheral neuritis of right foot07/31/20235699Ruaidff54/21/2023 Vitamin B12 deficiency (non anemic)07/31/2023eneralized scgxwcdy61/21/2023Ulnar neuropathy of both upper oruwrartbqp72/11/2023rachial plexus neuropathy 04/13/2023ervical ruwnhnmzsnwro91/04/2023omplex partial seizure with impairment of yggzokpkkonwa94/04/2023Localization-related (focal) (partial) symptomatic epilepsy and epileptic syndromes with simple partial seizures, intractable, without status xlptmttyipq43/04/0532Pgybiskdu64/04/2023Idiopathic sleep related nonobstructive alveolar /04/3896Ikenfc07/04/2023 Cervical stenosis of spinal canal10/28/20228053Fwucjlla64/19/2022telectasis 09/04/2022cute respiratory failure with inrkweu1609/03/2022eizure disorder 09/02/2022evere obesity (BMI 35.0-39.9) with /21/2022nxiety 11/19/20210670Osacczu19/10/2022bstructive sleep apnea11/19/2021Temporal lobe srvavxfw25/10/2022VAIN I (vaginal intraepithelial neoplasia grade I)11/19/2021 Lichen kwumvujce68/10/2022bstructive sleep apnea zhdurcbo16/10/2022Focal fcgzsjku07/10/2022Essential qipqpzydtmsq28/17/2021rimary sbzdzscfteju36/17/2021 Diabetes iagiosby49/25/2019Type 2 diabetes mellitus, without long-term current use of rumpzzx9908/04/2019Depressive ihdcoaaf39/04/2014Generalized anxiety ryfnelsb37/04/2014Symptomatic partial epilepsy with intractable simple partial abbpoxqr22/04/9244Yiznymay25/18/2005PONV (postoperative nausea and vomiting) Encounters DateTypeDepartmentCare SupvTsglvbqufsq90/28/2025 1:15 PM EDTOffice Visit [facility] [address] [place] [address] Tim Cooney MD Aftercare following right knee joint replacement surgery (Primary Dx)09/05/2025 Vgthux6808/04/2025 9:40 AM EDTOffice Visit [facility] [address] [place] [address] Chad Boyle, ANIMAL TREATMENT INVESTIGATOR-SENIOR POWER SCHEDULER Aftercare following right knee joint replacement surgery (Primary Dx)08/04/2025 Results Follow-Up [facility] [address] [place] [address] Macarena Chaudhry CMA C-reactive protein, Erythrocyte Sedimentation Rate (ESR)08/02/2025Travel 08/02/2025Refill [facility] [address] [place] [address] Chad Boyle, ANIMAL TREATMENT INVESTIGATOR-SENIOR POWER SCHEDULER 07/27/2025Telephone [facility] [address] [place] [address] Ivon Siegel 07/19/2025 11:15 AM EDTOffice Visit [facility] [address] [place] [address] Aram Noguera PA Aftercare following right knee joint replacement surgery (Primary Dx)07/18/2025 Travelfrom Last 3 Months Family History Medical HistoryRelationNameCommentsEpilepsyBrother 1Atrial fibrillationBrother 2 Atrial fibrillationBrother 3Heart diseaseFatherDadHypertensionFatherDadStroke Maternal AuntHeart diseaseMothermomHypertensionMothermomOvarian cancerMothermom StrokeMothermomBreast cancerNiece 1Breast cancerNiece 2SeizuresPaternal Aunt DiabetesPaternal GrandmotherGrandmaSeizuresPaternal UncleUterine cancerSister 1 SisAnesthesia problemsNeg HxBleeding DisorderNeg HxClotting disorderNeg HxColon cancerNeg HxRelationNameStatusCommentsBrother 1AliveBrother 2AliveBrother 3Alive Brother 4AliveBrother 5AliveFatherDadDeceasedMaternal AuntDeceasedMaternal GrandfatherDeceasedMaternal GrandmotherDeceasedMothermomDeceasedNiece 1Alive Niece 2AlivePaternal AuntDeceasedPaternal GrandfatherDeceasedPaternal GrandmotherGrandmaDeceasedPaternal UncleDeceasedSister 1SisDeceasedSister 2Alive Sister 3AliveSister 4Alive Social History Tobacco UseTypesPacks/DayYears UsedDateSmoking Tobacco: NeverPassive Smoke Exposure: NeverSmokeless Tobacco: Never Tobacco Cessation:Counseling Given: Not Answered Alcohol UseStandard Drinks/WeekCommentsNo0 (1 standard drink = 0.6 oz pure alcohol)PHQ-2AnswerDate RecordedTotal Rkfzi114ChildcareAnswerDate FfjahdehZwhttcxgmNzaqmhq61/12/2019EmploymentAnswerDate RecordedEmploymentUnknown 04/21/2019Hunger ScreeningAnswerDate RecordedWithin the past 12 months we worried whether our food would run out before we got money to buy more.Never True06/13/2025Within the past 12 months the food we bought just didn't last and we didn't have money to get more.Never True06/13/2025Purpose - LifeAnswerDate RecordedPurpose and direction in asnbZwkuqkq77/11/2021CommentsNoSex and Gender InformationValueDate RecordedSex Assigned at BirthNot on fileLegal Sex Dqhazi5206/15/2015 11:23 AM EDTGender IdentityNot on fileSexual OrientationNot on file Last Filed Vital Signs Vital SignReadingTime TakenCommentsBlood Frmolbbb480/6908 6:06 PM EDT Idcbl018406/13/2025 6:06 PM EIACuchmvwxcui48.1 ??C (97 ??F)06/13/2025 6:06 PM EDT Respiratory Sjfs754806/13/2025 6:06 PM EDTOxygen Ownpggmcnr04%06/13/2025 6:06 PM EDTInhaled Oxygen Concentration--Bsrnrt45.2 kg (190 lb)08/04/2025 9:35 AM EDT Cfwxrc476.4 cm (5')08/04/2025 9:35 AM EDTBody Mass Index37.11008/04/2025 9:35 AM EDT Plan of Treatment Health MaintenanceDue DateLast DoneCommentsDiabetic Ophthalmology Exam1958 Statin Use: Etwjwkkq1958Depression Wiyfgayro84/22/1970Adult BMI Follow Up Plan1976Diabetic Foot Exam1976DTaP,Tdap and Td Vaccines (1 - Tdap) 1977Zoster (Shingles) Vaccine (1 of 2)2008Fall Risk Screening 2023Influenza Lswwqsn9407/11/2025dult BMI Vxohcuvcz47/ Tobacco Bpnqpgwkm50/RSV ( or age 60+ yrs) (1 - 1-dose 75+ series)3Pap TsjpsWviztknakauy66/29/2024, 03/05/2023, 03/05/2023, Additional history exists Goals GoalPatient Goal TypeAssociated ProblemsRecent ProgressPatient-Stated?Author improve mobility Theresa Rojas, RN Note: Evaluation of progress towards goal: Maximize work with PT at discharge to strengthen right knee Autogenerated Goal Care PlanAutogenerated ProblemAngelika [employer] ImplantedTypeAreaManufacturerDevice IdentifierShelf Expiration DateModel / Serial / LotBearing Tib 71/24bfs99qq 0d Kn Post Stab Dir Cmpr Mld Inlay - [id number] Implanted:Qty: 1 on 06/13/20[facility]: KneeZimmer Biomet [id number] / / [id number] Bn Bio 40gm Rpl [id number] - [id number] Implanted:Qty: 2 on 06/13/2025 by [facility]ementRight: KneeZimmer Biomet [id number] / / [id number] Ptlr 8mm 31mm 3 Pg Wr Asym Vngrd Kn Strl Ser A - [id number] Implanted:Qty: 1 on 06/13/2025 by Tim Cooney MD at [facility] ImplantRight: Knee Cal [id number] / / [id number] Tib Ascnt Mxm 71mm Intlk Cocr Kn Crcte Fin 1 Pc - [id number] Implanted:Qty: 1 on 06/13/2025 by Tim Cooney MD at [facility] ImplantRight: Knee Cal Msozls67/13/[id number] / / [id number] Fem Kn Rt 62.5mm Post Stab Cmnt Opn Bx Vngrd Intlk - [id number] Implanted:Qty: 1 on 06/13/2025 by [facility] ImplantRight: Knee Cal [id number] / / [id number] Procedures Procedure NamePriorityDate/TimeAssociated DiagnosisCommentsERYTHROCYTE SEDIMENTATION RATE (ESR)Oanbyxe1408/04/2025 10:26 AM EDT Aftercare following right knee joint replacement surgery C-REACTIVE NIMXRIRMbwvwix48/25/2025 10:26 AM EDT Aftercare following right knee joint replacement surgery HIGH RISK HPV W/VRQBHocgotp65/29/2024 from Last 3 Months or Most Recently Relevant to Health Maintenance Results * Erythrocyte Sedimentation Rate (ESR) (08/04/2025 10:26 AM EDT)ComponentValue Ref RangeTest MethodAnalysis TimePerformed AtPathologist SignatureESR, Erythrocyte Sedimentation Ajkz577 - 30 mm/h008/04/2025 12:27 PM [facility] LABORATORYSpecimen (Source)Anatomical Location / Laterality Collection Method / VolumeCollection TimeReceived TimeBloodVenous blood / UnknownVenipuncture / Tywoiqu7008/04/2025 10:26 AM EDT08/04/2025 10:26 AM EDT Narrative Authorizing ProviderResult TypeResult StatusSajoshua Boyle ANIMAL TREATMENT INVESTIGATOR-CNPLAB BLOOD ORDERABLESFinal ResultPerforming OrganizationAddressCity/State/ZIP CodePhone Number [facility] [address] [place] [phone], * C-reactive protein (08/04/2025 10:26 AM EDT)ComponentValueRef RangeTest Method Analysis TimePerformed AtPathologist SignatureC REACTIVE PROTEIN0.3<=0.7 mg/dL 08/04/2025 12:41 PM [facility] LABORATORYSpecimen (Source) Anatomical Location / LateralityCollection Method / VolumeCollection Time Received TimeBloodVenous blood / UnknownVenipuncture / Yvvfoyq1508/04/2025 10:26 AM EDT08/04/2025 10:26 AM EDT Narrative Authorizing ProviderResult TypeResult StatusSamuel D Forsfrederick ANIMAL TREATMENT INVESTIGATOR-CNPLAB BLOOD ORDERABLESFinal ResultPerforming OrganizationAddressCity/State/ZIP CodePhone Number [facility] [address] [place] [address], * High risk HPV w/danish (04/07/2024)ComponentValueRef RangeTest MethodAnalysis TimePerformed AtPathologist SignatureHIGH RISK HPVnot detectedMANUALLY TRANSCRIBED RESULTSComment:not detectedSpecimen (Source)Anatomical Location / LateralityCollection Method / VolumeCollection TimeReceived Time04/07/2024 Narrative Authorizing ProviderResult TypeResult StatusScanning Provider ExternalLAB BLOOD ORDERABLESEdited Result - FinalPerforming OrganizationAddressCity/State/ZIP Code Phone Number MANUALLY TRANSCRIBED RESULTS from Last 3 Months or Most Recently Relevant to Health Maintenance Additional Health Concerns Active ProblemsNoted DateDiagnosed DateAutogenerated Gtieetw2506/14/2025 Insurance Advance Directives TypeDate RecordedPatient RepresentativeExplanationLiving Will08/07/2020 8:33 AM * Full Code (Latest Code Status on File) Date ActivatedDate InactivatedComments06/13/2025 12:38 PM06/13/2025 8:55 PM Care Teams Team MemberRelationshipSpecialtyStart DateEnd Date Levon Leahy MD PCP - GeneralFamily Medicine11/19/21
--- OUTSIDE RECORDS SUMMARY | 2025-10-14 09:55 | XMS_ITS | Encounter Summary ---
Author Organization [facility] Address [address] [facility] [address] [place] [address] Care Team Providers Care Cleat Blanker Name Role Phone Levno Leahy MD Primary Care Provider [phone] Encounter Details DateTypeDepartmentCare Team (Latest Contact Info)Sqhozyljael78/03/2025Travel Social History Tobacco UseTypesPacks/DayYears UsedDateSmoking Tobacco: NeverSmokeless Tobacco: NeverAlcohol UseStandard Drinks/WeekCommentsNever0 (1 standard drink = 0.6 oz pure alcohol)caffeine: 1-2 cups per day coffee, teaCommentsUnknownSex and Gender InformationValueDate RecordedSex Assigned at OygajEayisb46/21/2023 3:18 PM EDTLegal KfcPjefif84/15/2023 7:07 PM EDTGender WdwjsbyfXrjrks22/21/2023 3:18 PM EDTSexual OrientationNot on filedocumented as of this encounter Plan of Treatment DateTypeDepartmentCare Team (Latest Contact Info)Ojnsbrekoqy09/10/2025 2:20 PM ESTOffice Visit [facility] [address] [place] [address] Juanjose Burgos MD [address] [facility] [address] [place] [address] [phone] documented as of this encounter Visit Diagnoses Not on filedocumented in this encounter Care Teams Team MemberRelationshipSpecialtyStart DateEnd Date Levon Leahy MD [address] [place] [address] [facility] - General02/23/25documented as of this encounter
--- OUTSIDE RECORDS SUMMARY | 2025-10-14 09:56 | XMS_ITS | Clinical Summary ---
Author Organization [facility] Address [address] [place] [address], [address] [place] [address] Care Team Providers Care Sample Tester Name Role Phone Levon Leahy MD Primary Care Provider [phone] Allergies Active AllergyReactionsCriticalityNoted DateCommentsAdhesive TapeOther (See Comments)Itvanm9503/27/2017 welts Diclofenac-MisoprostolOther (See Comments)Rgxrov9608/05/2023 Gastric ulcers CelecoxibOther (See Comments)Vcqgys4201/03/2021 ulcers CodeineNausea And ResyvvwsBuvtpb04/30/2014Egg Protein (Egg White)SwellingMedium 01/11/2021 Flu shot Swelling and redness at site GlutaralOther (See Comments)Ompdty9501/03/2021 Ulcers NsaidsOther (See Comments)Onfavf8008/04/2020OxaprozinOther (See Comments)Medium 01/03/2021 GI ulcers Sulfa AntibioticsOther (See Comments)Ymbegm9406/17/2022 blisters AcetaminophenOther (See Comments)Lykxem6308/05/2023 Gastric ulcders Medications MedicationSigDispense QuantityRefillsLast FilledStart DateEnd DateStatus gabapentin (NEURONTIN) 800 MG tablet 1 tablet 2 times daily. 8am and 3pmActive phenytoin (DILANTIN) 30 MG ER capsule 2 capsules three times a week TU, TH, SAT AT NIGHTActive phenytoin (DILANTIN) 100 MG ER capsule 3 capsules nightlyActive clonazePAM (KLONOPIN) 0.5 MG tablet 3 tablets nightly.Active escitalopram (LEXAPRO) 10 MG tablet Take 1 tablet by mouth dailyActive ascorbic acid (VITAMIN C) 1000 MG tablet Take 1 tablet by mouth dailyActive calcium carbonate 600 MG TABS tablet Take 1 tablet by mouth 2 times daily (with meals)Active Hughes 500 MG TABS Take by mouth dailyActive traZODone (DESYREL) 50 MG tablet Take 3 tablets by mouth nightlyActive aspirin 81 MG EC tablet Take 1 tablet by mouth dailyActive carvedilol (COREG) 6.25 MG tablet Take 1 tablet by mouth 2 times daily (with meals)Active glipiZIDE (GLUCOTROL) 5 MG tablet Take 1 tablet by mouth dailyActive pioglitazone (ACTOS) 30 MG tablet Take 1 tablet by mouth dailyActive Cholecalciferol (VITAMIN D3) 125 MCG (5000 UT) TABS Take 6,000 Units by mouth dailyActive BUSPIRONE HCL PO Take 10 mg by mouth dailyActive tiZANidine (ZANAFLEX) 4 MG tablet Take 1 tablet by mouth every 8 hours as neededActive Mometasone Furoate (NASONEX NA) by Nasal route dailyActive MELATONIN PO Take 9 mg by mouth nightlyActive Active Problems ProblemNoted DateDiagnosed DateAcute carpal tunnel syndrome of right wrist 11/06/2023ervical stenosis of spinal canal10/28/20223095Tdxnrfft62/19/2022 Tlpnkvpjfro52/26/2022cute respiratory failure with kvkcyio8109/03/2022SA treated with BiPAP1rimary rebphxsknohg33/25/2022/P cervical spinal fusion 09/02/2022Type 2 diabetes mellitus, without long-term current use of insulin 09/02/2022eizure /24/2022urrent chronic use of systemic steroids 09/02/2022 Family History Medical HistoryRelationNameCommentsHeart DiseaseFatherHeart DiseaseMotherStroke MotherRelationNameStatusCommentsFatherDeceasedMotherDeceased Social History Tobacco UseTypesPacks/DayYears UsedDateSmoking Tobacco: NeverSmokeless Tobacco: Never Tobacco Cessation:Counseling Given: Not Answered Alcohol UseStandard Drinks/WeekCommentsNot Currently0 (1 standard drink = 0.6 oz pure alcohol)AUDIT-CAnswerDate RecordedQ1: How often do you have a drink containing alcohol?Never06/17/2022verage Number of DrinksNot on file06/17/2022 Q3: How often do you have six or more drinks on one occasion?Never06/17/2022 Interpersonal Safety Domain Source: IP Abuse ScreeningAnswerDate RecordedHow often does anyone, including family and friends, physically hurt you?Not on file 11/06/2023How often does anyone, including family and friends, scream or curse at you?Not on file11/06/2023How often does anyone, including family and friends, insult or talk down to you?Not on file11/06/2023How often does anyone, including family and friends, threaten you with harm?Not on file11/06/2023Read-Only, Retired: Physical PcwguHxyrmn18/28/2023Read-Only, Retired: Verbal AbuseDenies 11/06/2023Read-Only, Retired: Emotional cvjasWjhrch12/28/2023Read-Only, Retired: Financial QcgoiZrrkde09/28/2023Read-Only, Retired: Sexual desdqRpilwi99/28/2023 CommentsNoSex and Gender InformationValueDate RecordedSex Assigned at YyfvgTrklte80/21/2022 10:43 AM EDTLegal KrbSnfguq14/10/2013 8:02 PM ESTGender PjvsoexyUzminz02/21/2022 10:43 AM EDTSexual HmosoxqabtsBvjvblki75/04/2023 10:52 AM EDT Last Filed Vital Signs Vital SignReadingTime TakenCommentsBlood Hqhaiggv899/8503 1:01 PM EDT Khuup0867 1:01 PM UIYAwglgvfkexy02.9 ??C (98.5 ??F)02/08/2024 1:01 PM EDTRespiratory Fmau901402/08/2024 1:01 PM EDTOxygen Loctlcruyz96%02/08/2024 1:01 PM EDTInhaled Oxygen Concentration--Xefruo43.2 kg (190 lb)11/06/2023 11:03 AM ITJJuqmrv147.4 cm (5')11/06/2023 11:03 AM ESTBody Mass Index37.11101/07/2023 11:03 AM EST Plan of Treatment Health MaintenanceDue DateLast XrofZjzvxouvE3I test (Diabetic or Prediabetic) 1968Diabetic foot exam10/01/19684273Mqefza44/22/1968Depression Screen 1970Diabetic Alb to Cr ratio (uACR) test1976Diabetic retinal exam 1976Hepatitis C rpgdzw1710/01/1976DTaP/Tdap/Td vaccine (1 - Tdap)1977 Jhqezixvaqq20/22/2003Colorectal Cancer Ujxnzc3910/01/2003FIT/FOBT: Average risk 2003Fecal-DNA (Cologuard): Average risk2003Sigmoidoscopy/CT zkgtuhujzjgw71/22/2003Shingles vaccine (1 of 2)2008DEXA (modify frequency per FRAX score)2013Respiratory Syncytial Virus (RSV) or age 60 yrs+ (1 - Risk 60-74 years 1-dose series)2018Breast cancer screen Pneumococcal 50+ years Vaccine (2 of 2 - PPSV23, PCV20, or PCV21)/nnual Wellness Visit (Medicare)3GFR test (Diabetes, CKD 3-4, OR last GFR 15-59)/, 10/29/2022, 10/28/2022, Additional history existsFlu vaccine (#1)5COVID-19 Vaccine ( - season)2025Pneumococcal 0-49 years VaccineDiscontinued 10/24/2021Hepatitis A vaccineAged OutNo longer eligible based on patient's age to complete this topicHepatitis B vaccineAged OutNo longer eligible based on patient's age to complete this topicHib vaccineAged OutNo longer eligible based on patient's age to complete this topicMeningococcal (ACWY) vaccineAged OutNo longer eligible based on patient's age to complete this topicMeningococcal B vaccineAged OutNo longer eligible based on patient's age to complete this topic Polio vaccineAged OutNo longer eligible based on patient's age to complete this topic Medical Devices ImplantedTypeAreaManufacturerDevice IdentifierShelf Expiration DateModel / Serial / LotGraft Bne Sub Sm 1ml Cryopreserved Viable [facility] Bne - [id number] Implanted:Qty: 1 on 09/02/2022 [facility] Spine CervicalLIFENET [place] [employer]-WD08/13/2023 [id number] / [id number] / N/ASpacer Spnl 12 Mm [employer] - [id number] Implanted:Qty: 4 on 09/02/2022 [facility]: Spine CervicalGLOB[employer] INC-[id number] / / Spacer Spnl 7 Deg [id number] Mm [employer] Mis - [id number] Implanted:Qty: 2 on 09/02/2022 [facility]: Spine CervicalGLOB[employer] MEDICAL INC-[id number] / / Impl Spinal Disc Cerv Mobi-C [id number] - [id number] Implanted:Qty: 1 on 10/28/2022 [facility]: Spine CervicalZIMMER INC-[id number] / / [id number] Spinal Disc Cerv Mobi-C [id number] - [id number] Implanted:Qty: 1 on 10/28/2022 [facility]: Spine CervicalZIMMER INC-[id number] / / [id number] Procedures Procedure NamePriorityDate/TimeAssociated DiagnosisCommentsBUN & CREATININE Gfbittt3208/05/2023 4:30 PM EDT from Last 3 Months or Most Recently Relevant to Health Maintenance Results * BUN & Creatinine (08/05/2023 4:30 PM EDT)ComponentValueRef RangeTest Method Analysis TimePerformed AtPathologist NgpnnxhxeLJW784 - 23 mg/dL08/05/2023 4:30 PM EDTMERCY LABORATORIESCreatinine0.70.5 - 0.9 mg/dL08/05/2023 4:30 PM EDT [facility] LABORATORIESEst, Glom Filt Rate>60>60 mL/min/1.41n90908/05/2023 4:30 PM EDTMBoommy Fashion LABORATORIESComment: ? These results are not intended for use in patients <18 years of age. ? eGFR results are calculated without a race factor using the 2020 CKD-EPI equation. Careful clinical correlation is recommended, particularly when comparing to results calculated using previous equations. The CKD-EPI equation is less accurate in patients with extremes of muscle mass, extra-renal metabolism of creatine, excessive creatine ingestion, or following therapy that affects renal tubular secretion. Specimen (Source)Anatomical Location / LateralityCollection Method / Volume Collection TimeReceived Time08/05/2023 4:30 PM EDT08/05/2023 4:36 PM EDT Narrative Authorizing ProviderResult TypeResult StatusGemaria m Nixon MDCHEMISTRY ORDERABLESEdited Result - FinalPerforming OrganizationAddressCity/State/ZIP Code Phone Number [facility] [address] [id number], [facility] [phone] from Last 3 Months or Most Recently Relevant to Health Maintenance Insurance [address] [place] [address] [address] [place] [address] Advance Directives TypeDate RecordedPatient RepresentativeExplanationACP-Advance Directive01/29/2021 1:55 PMACP-Power of Attorney01/29/2021 1:55 PM * Full Code (Latest Code Status on File) Date ActivatedDate ZkimrpsitbvXzhfejwz10/19/2022 10:14 AM10/29/2022 6:10 PM * Full Code Date ActivatedDate RfoldvgvedzUtgoakdi24/24/2022 1:06 PM10 5:56 PM Care Teams Team MemberRelationshipSpecialtyStart DateEnd Date Levon Leahy MD [address] [place] [address] PCP - GeneralFamily Yxaehxtu73/19/22
--- OUTSIDE RECORDS SUMMARY | 2025-10-14 09:56 | XMS_ITS | Clinical Summary ---
Author Organization [facility] Address [address] [place] [address] Care Team Providers Care Education Rep Name Role Phone Levon Leahy MD Primary Care Provider [phone] Allergies Active AllergyReactionsCriticalityNoted DateCommentsAcetaminophenMedium 08/05/2023 Other Reaction(s): Other (See Comments) Gastric ulcders XcdphbikgPlemtv18/24/2021 Other Reaction(s): Other (See Comments), Unknown ulcers CodeineNausea And AydhqimpQmohlm80/30/2014 Other Reaction(s): Unknown Diclofenac-VaogduutcuiEushxo78/26/2023 Other Reaction(s): Other (See Comments) Gastric ulcers Egg Protein-Containing Drug VxogzxvoEeepfdgoHfubme45/04/2021 Other Reaction(s): Unknown Flu shot ??Swelling and redness at site EvsmbbouEuffim29/24/2021 Other Reaction(s): Other (See Comments), Unknown Ulcers OnvcpkAfcoof73/25/2020 Other Reaction(s): Other (See Comments), Unknown IdusjKapuwi27/25/2020 Other Reaction(s): GI Disturbance Other Reaction(s): Unknown XflcgrnrsXshcvCnktyn60/24/2021 GI ulcers Sulfa AntibioticsHives,KnkmUpenbi25/08/2022 blisters Wound Dressing Ddchllod17/18/2017 Medications MedicationSigDispense QuantityRefillsLast FilledStart DateEnd DateStatus tiZANidine (Zanaflex) 4 MG tablet Take 4 mg by mouth 1 (one) time each day.08/30/2022ctive omega-3 (Fish Oil) 1000 MG capsule 1 capsule 1 (one) time each day at the same time.Active Respiratory Therapy Supplies (CareTouch CPAP & BIPAP Hose) [facility] [place], [place] Indications:Obstructive sleep apnea syndromeBIPAP mask, heating tubing and supplies for 1 year. 1 each 05/27/2023ctive zinc gluconate 50 MG tablet 1 (one) time each day at the same time.Active alpha tocopherol (Vitamin E) 1000 units capsule 1 (one) time each day at the same time.Active pioglitazone (Actos) 15 MG tablet 1 (one) time each day at the same time.Active Multiple Vitamin (Multi Vitamin) tablet every 12 (twelve) hours.Active Milk Thistle 150 MG capsule as directed OrallyActive melatonin 3 MG tablet 3 tas Orally at bedtimeActive ascorbic acid (Vitamin C) 1000 MG tablet Take 1,000 mg by mouth in the morning.Active aspirin 81 MG EC tablet 1 (one) time each day at the same time.Active b complex vitamins capsule Take 1 capsule by mouth in the morning.Active Biotin 1000 MCG chewable tablet every 12 (twelve) hours.Active beta carotene (Vitamin A) 46710 units capsule Take 25,000 Units by mouth.Active calcium carbonate (Os-Asa) 1250 (500 Ca) MG tablet every 12 (twelve) hours.Active calcium-vitamin D-vitamin K (Calcium + D + K) 750-500-40 MG-UNT-MCG tablet every 12 (twelve) hours.Active glipiZIDE (Glucotrol) 5 MG tablet Take 5 mg by mouth in the morning.Active coenzyme Q-10 100 MG capsule 1 capsule 1 (one) time each day at the same timeActive cholecalciferol (Vitamin D-3) 125 MCG (5000 UT) tablet Take 6,000 Units by mouthActive carvedilol (Coreg) 6.25 MG tablet Take 6.25 mg by mouth in the morning and 6.25 mg before bedtime.Active ALFALFA PO Take by mouthActive escitalopram (Lexapro) 10 MG tablet Indications:Depression, unspecified depression typeTAKE 1 TABLET BY MOUTH EVERY DAY IN THE MORNING 90 tablet ctive Garlic 2 MG capsule Take by mouthActive LECITHIN PO Take by mouthActive Red Yeast Rice Extract (RED YEAST RICE PO) Take by mouthActive Turmeric (CURCUMIN 95 PO) Take by mouthActive denosumab (Prolia) 60 MG/ML solution prefilled syringe Inject 60 mg under the skin 1 (one) timeActive tiZANidine (Zanaflex) 2 MG tablet Take 2 mg by mouth every 8 (eight) hours if golncf7406/17/2024ctive mometasone (Nasonex) 50 MCG/ACT nasal spray Indications: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Administer 2 sprays into each nostril Daily 18 g ctive traZODone (Desyrel) 100 MG tablet Indications:Chronic insomniaTake 3 tablets (300 mg) by mouth at bedtime 90 tablet 1105Active busPIRone (Buspar) 10 MG tablet Indications:AnxietyTake 1 tablet (10 mg) by mouth Daily 90 tablet //6Active Dilantin 100 MG capsule Indications:Focal epilepsy (HCC)TAKE 3 CAPSULES BY MOUTH AT BEDTIME 270 capsule 5Active Dilantin 30 MG capsule Indications:Generalized seizure disorder (HCC)Take 1 capsule (30 mg) by mouth Daily Total of 10 capsules per week. 90 capsule 5Active gabapentin (Neurontin) 800 MG tablet Indications:Focal epilepsy (HCC)Take 1 tablet (800 mg) by mouth in the morning and 1 tablet (800 mg) at noon and 1 tablet (800 mg) in the evening and 1 tablet (800 mg) before bedtime. 360 tablet ctive clonazePAM (KlonoPIN) 0.5 MG tablet Indications:Focal epilepsy (HCC),Myoclonic epilepsy (HCC)Take 1 tablet (0.5 mg) by mouth in the morning and 1 tablet (0.5 mg) in the evening and 1 tablet (0.5 mg) before bedtime. 270 tablet ctive Active Problems ProblemNoted DateDiagnosed DateOther nerve root and plexus frgqekcqc68/14/2024 Trochanteric bursitis, right hip09/23/2024rthritis of left knee03/25/2024ure csxdorirthxcrzevj24/15/2024ure hypercholesterolemia, mnmyickqwyw46/15/2024cute carpal tunnel syndrome of right wrist11/06/2023ffective dzevljoka63/21/2023 Ycbnlydxj97/21/2023ifficulty gexblte3607/31/2023eneralized vpajrhct42/21/2023 Memory loss07/31/2023Morton's neuroma of third interspace of right foot 07/31/2023eripheral neuritis of right foot07/31/20234500Trrvizm52/21/2023PONV (postoperative nausea and vomiting)07/31/2023Vitamin B12 deficiency (non anemic) 07/31/2023Ulnar neuropathy of both upper extremities [G56.23 (ICD-10-CM)] 07/21/2023rachial plexus qufyvuuqip55/04/2023ervical gbfplqdlyxrce75/04/2023 Complex partial seizure with impairment of qrchylmcmvfth09/04/2023izziness 04/13/2023Idiopathic sleep related nonobstructive alveolar hypoventilation 04/13/2023Localization-related (focal) (partial) symptomatic epilepsy and epileptic syndromes with simple partial seizures, intractable, without status mqjzdfmadrd80/04/6262Ebyrnx87/04/2023ervical stenosis of spinal canal10/28/2022 Pfpeegxx60/19/5090Vnvonmwxwsf91/26/2022cute respiratory failure with hypoxia 09/03/2022/P cervical spinal niwrxu4909/02/2022urrent chronic use of systemic /24/2022eizure hsugdadw75/24/2022evere obesity (BMI 35.0-39.9) with mhxomupdzqp54/21/4102Unpchgh94/10/2022Focal zpeeupim93/10/2022bstructive sleep apnea oldqmvbq17/10/2022Lichen ailjbhdia40/10/3133Inyybla38/10/2022VAIN I (vaginal intraepithelial neoplasia grade I)11/19/2021rimary hypertension 01/24/2021Type 2 diabetes mellitus, without long-term current use of insulin 08/04/2019Depressive /04/2014Generalized anxiety jvxxiwfr88/04/2014 Encounters DateTypeDepartmentCare BluqIbfoncrktsn45/03/5428Dotxwp95/03/2025Telephone [facility] [address] [place] [address] Juanjose Burgos MD from Last 3 Months Immunizations ImmunizationAdministration DatesNext DuePneumococcal Conjugate PCV 13112/25/2020 Pneumococcal Polysaccharide BVIN3797/,01/08/2017 Family History Medical HistoryRelationNameCommentsHeart diseaseFatherFatherHeart diseaseMother MothersuicideNephewCancerSiblingRelationNameStatusCommentsBrother5 brothers FatherFatherDeceasedMotherMotherDeceasedNephewDeceasedSibling5 sisters Social History Tobacco UseTypesPacks/DayYears UsedDateSmoking Tobacco: NeverSmokeless Tobacco: Never Tobacco Cessation:Counseling Given: Not Answered Alcohol UseStandard Drinks/WeekCommentsNever0 (1 standard drink = 0.6 oz pure alcohol)caffeine: 1-2 cups per day coffee, teaCommentsUnknownSex and Gender InformationValueDate RecordedSex Assigned at DhtgfHmjlup49/21/2023 3:18 PM EDTLegal TpqOvhyha68/15/2023 7:07 PM EDTGender YgbktibwGgqljd41/21/2023 3:18 PM EDTSexual OrientationNot on file Last Filed Vital Signs Vital SignReadingTime TakenCommentsBlood Iqqtaglx279/8607 3:23 PM EDT Olodq3115 3:23 PM EDTTemperature--Respiratory Rate--Oxygen Saturation-- Inhaled Oxygen Concentration--Lkaiuh85.2 kg (190 lb)06/01/2025 3:23 PM EDTHeight 152.4 cm (5')06/01/2025 3:23 PM EDTBody Mass Index37.1107 3:23 PM EDT Plan of Treatment DateTypeDepartmentCare Team (Latest Contact Info)Zgkfklnypac06/10/2025 2:20 PM ESTOffice Visit [facility] [address] [place] [address] Juanjose Burgos MD [address] [facility] [address] [place] [address] [address] [place] [address] Care Teams Team MemberRelationshipSpecialtyStart DateEnd Levon Laehy MD [address] [place] [address] [facility]02/23/25
== END 2025-10-14 09:53 | disposition home or self-care (01) ==
LOC: MRI 09:52
PROVIDERS: PCP Family Medicine; Visit Provider Orthopaedic Surgery
DX: M48.062 Spinal stenosis, lumbar region with neurogenic claudication (principal); M81.0 Age-related osteoporosis without current pathological fracture; E55.9 Vitamin D deficiency, unspecified
CPT/HCPCS: 36415; 72148; 82306; 82310

== ENCOUNTER 2025-10-14 10:59 | Outpatient (OUT) | payer MEDICARE, OTHER, SELFPAY ==
[2025-10-14 12:13] LABS: Calcium 9.6 mg/dL (8.5-10.1)
== END 2025-10-14 11:00 | disposition home or self-care (01) ==
LOC: LAB 11:02
PROVIDERS: PCP Family Medicine; Visit Provider Orthopaedic Surgery
DX: M81.0 Age-related osteoporosis without current pathological fracture (principal); E55.9 Vitamin D deficiency, unspecified
CPT/HCPCS: 36415; 82306; 82310